=== PATIENT | female | born 1975 | race Caucasian/White ===

== ENCOUNTER 2016-07-10 10:55 | Emergency (ER) | payer OTHER ==
[2016-07-10 12:51] LABS: Basophils % (A) 0 %; CHCM 32.6; Eosinophils % (A) 1 %; HCT 43.9 % (34.0-46.0); HDW 2.13; HGB 14.2 gm/dL (11.4-16.0); Luc # (Auto) 0.13; Luc % (Auto) 2; Lymphocytes # (A) 1.5 k/uL (1.0-4.8); Lymphocytes % (A) 25 %; MCH 30.9 pg (25.0-35.0); MCHC 32.4 g/dL (31.0-37.0); MCV 95.4 fL (80.0-100.0); Mean Platelet Volume 6.7; Monocytes # (A) 0.4 k/uL (0-1.0); Monocytes % (A) 7 %; Neutrophils # (A) 3.8 k/uL (1.3-7.7); Neutrophils % (A) 65 %; RDW 13.4 % (11.5-15.5); WBC 5.9 k/uL (3.8-10.6)
[2016-07-10 13:06] LABS: ALT 27 U/L (9-52); AST 21 U/L (14-36); Alkaline Phosphatase 60 U/L (38-126); Amylase 81 U/L (30-110); Anion Gap 12 mmol/L; Blood Urea Nitrogen 10 mg/dL (7-17); Calcium 9.6 mg/dL (8.4-10.2); Carbon Dioxide 27 mmol/L (22-30); Chloride 105 mmol/L (98-107); Glucose 83 mg/dL (74-99); Non-African American GFR(MDRD) >60 (>60 ml/min/1.73 sqM); Potassium 4.3 mmol/L (3.5-5.1); Sodium 144 mmol/L (137-145); Total Bilirubin 0.6 mg/dL (0.2-1.3); Total Protein 7.5 g/dL (6.3-8.2)
[2016-07-10 13:24] LABS: Appearance,Urine Clear (Clear); Bilirubin,Urine Negative (Negative); Glucose,Urine (UA) Negative (Negative); Ketones,Urine Negative (Negative); Leukocyte Esterase,Urine Negative (Negative); Nitrite,Urine Negative (Negative); Protein,Urine Negative (Negative); Specific Gravity,Urine 1.008 (1.001-1.035); UA Billing (MACRO vs. MICRO) CHEM; Urobilinogen,Urine <2.0 mg/dL (<2.0)
[2016-07-10] MEDS ORDERED: ONDANSETRON 4 MG/2 ML VIAL IVP STA (14:09)
[2016-07-10] MEDS ORDERED: SODIUM CHLORIDE 0.9% 1,000 ML IV ONE (14:09)
[2016-07-10] MEDS ORDERED: HYDROmorphone 1 MG/ML 1 ML SYRINGE IVP STA ×2 (14:10→16:04)
--- NOTE | 2016-07-10 14:13 | ED ---
Abdominal Pain HPI - General Chief Complaint: Abdominal Pain Stated Complaint: ACUTE PANCREATITIS Time Seen by Provider: 07/10/16 13:42 Source: patient, RN notes reviewed Mode of arrival: ambulatory Limitations: no limitations - History of Present Illness Initial Comments: Patient is a 41-year-old female presents to the emergency room for evaluation of abdominal pain. Patient stated the pain began this morning. Patient states she has a history of chronic pancreatitis. Patient states she is a history of chronic pancreatitis from the medication she's been taking for her Crohn's disease. Patient states she woke up this morning with extreme left upper quadrant pain, nausea, vomiting and diarrhea. Patient states she takes Lortab and morphine for pain. Patient states it is not helping her symptoms. Patient denies chest pain, shortness of breath, headache, dizziness. Patient states that a low-grade fever over the past day. Patient denies any other symptoms or complaints this time. Patient denies blood in stools. Patient denies pain or burning during urination, trouble urinating or blood in urine. - Related Data Home Medications Medication Instructions Recorded Confirmed Alendronate Sodium [Fosamax] 70 mg PO MO 06/07/16 07/10/16 Morphine Sulfate ER [Ms Contin] 30 mg PO Q8H 06/07/16 07/10/16 SUMAtriptan SUCCINATE [Imitrex] 100 mg PO DAILY PRN 06/07/16 07/10/16 Adalimumab [Humira Pen] 40 mg SQ Q14D 07/10/16 07/10/16 Hydrocodone/Acetaminophen [[place] 1 tab PO Q6H PRN 07/10/16 07/10/16 10-325] Lipase/Protease/Amylase [Thor Ambrocio 2 cap PO AC-TID 07/10/16 07/10/16 24,000 Units Capsule] predniSONE 20 mg PO DAILY 07/10/16 07/10/16 Previous Rx's Medication Instructions Recorded Ondansetron [Zofran ODT] 8 mg PO Q8H PRN #15 tab.rapdis 06/09/16 Allergies Allergy/AdvReac Type Severity Reaction Status Date / Time metoclopramide [From Reglan] Allergy Intermediate Unknown Verified 07/10/16 14: 09 Review of Systems ROS Statement: Those systems with pertinent positive or pertinent negative responses have been documented in the HPI. ROS Other: All systems not noted in ROS Statement are negative. Past Medical History Past Medical History: Eye Disorder, GERD/Reflux, GI Bleed, Osteoarthritis (OA), Rheumatoid Arthritis (RA) Additional Past Medical History / Comment(s): pancreatitis, Crohn's disease pt stated her normsal is loose to water stools and( occ maybe even a bit of blood) more than 3 /day,ulcers, bone and skin necrosis, GAYLE CATARACTS, UTI'S, past renal failure d/t dehydration, migraine, osteoporosis, 2 spinal fx-wore a brace. History of Any Multi-Drug Resistant Organisms: None Reported Past Surgical History: Cholecystectomy Additional Past Surgical History / Comment(s): colonoscopies, egd's Past Anesthesia/Blood Transfusion Reactions: No Reported Reaction Additional Past Anesthesia/Blood Transfusion Reaction / Comment(s): has had 13 blood transfusion-no reaction Past Psychological History: No Psychological Hx Reported Additional Psychological History / Comment(s): pt recently moved here from [facility],lives with her parents.independant. Smoking Status: Never smoker Past Alcohol Use History: None Reported Past Drug Use History: None Reported - Past Family History Father Family Medical History: Myocardial Infarction ([place]) Additional Family Medical History / Comment(s): biological father had hx of drug abuse Mother Family Medical History: Hyperlipidemia General Exam - General Exam Comments Initial Comments: Sitting in exam room in no acute distress. Limitations: no limitations General appearance: alert, in no apparent distress Head exam: Present: atraumatic, normocephalic, normal inspection Eye exam: Present: normal appearance ENT exam: Present: normal exam Neck exam: Present: normal inspection Respiratory exam: Present: normal lung sounds bilaterally. Absent: respiratory distress Cardiovascular Exam: Present: regular rate, normal rhythm, normal heart sounds GI/Abdominal exam: Present: soft, tenderness (LUQ), normal bowel sounds. Absent : distended, guarding, rebound, rigid Extremities exam: Present: normal inspection Back exam: Present: normal inspection Neurological exam: Present: alert, oriented X3, CN II-XII intact, normal gait Psychiatric exam: Present: normal affect, normal mood Skin exam: Present: warm, dry, intact, normal color. Absent: rash Course Vital Signs 07/10/16 07/10/16 07/10/16 12:12 15:14 16:16 Temperature 98 F 97.8 F 98 F Pulse Rate 85 78 78 Respiratory 20 16 18 Rate Blood Pressure 116/67 115/70 120/55 O2 Sat by Pulse 99 98 98 Oximetry Medical Decision Making - Medical Decision Making Patient is a 41-year-old female with a past medical history of chronic pancreatitis presents to the emergency room for evaluation of abdominal pain. Patient's labs showed no acute findings. Patient states she is feeling better after pain medications given. Advised patient to follow-up with her primary care provider on Tuesday. Advised patient to return for worsening symptoms. Patient states she understands everything that was discussed with her. Case discussed with Dr. Banda. - Lab Data Result diagrams: 07/10/16 12:22 07/10/16 12:22 Lab Results 07/10/16 07/10/16 07/10/16 Range/Units 12:20 12: 12:22 WBC 5.9 (3.8-10.6) k/uL RBC 4.60 (3.80-5.40) m/uL Hgb 14.2 (11.4-16.0) gm/dL Hct 43.9 (34.0-46.0) % MCV 95.4 (80.0-100.0) fL MCH 30.9 (25.0-35.0) pg MCHC 32.4 (31.0-37.0) g/dL RDW 13.4 (11.5-15.5) % Plt Count 199 (150-450) k/uL Neutrophils % 65 % Lymphocytes % 25 % Monocytes % 7 % Eosinophils % 1 % Basophils % 0 % Neutrophils # 3.8 (1.3-7.7) k/uL Lymphocytes # 1.5 (1.0-4.8) k/uL Monocytes # 0.4 (0-1.0) k/uL Eosinophils # 0.0 (0-0.7) k/uL Basophils # 0.0 (0-0.2) k/uL Sodium 144 (137-145) mmol/L Potassium 4.3 (3.5-5.1) mmol/L Chloride 105 (98-107) mmol/L Carbon Dioxide 27 (22-30) mmol/L Anion Gap 12 mmol/L BUN 10 (7-17) mg/dL Creatinine 0.75 (0.52-1.04) mg/dL Est GFR (MDRD) Af Amer >60 (>60 ml/min/1.73 sqM) Est GFR (MDRD) Non-Af >60 (>60 ml/min/1.73 sqM) Glucose 83 (74-99) mg/dL Calcium 9.6 (8.4-10.2) mg/dL Total Bilirubin 0.6 (0.2-1.3) mg/dL AST 21 (14-36) U/L ALT 27 (9-52) U/L Alkaline Phosphatase 60 (38-126) U/L Total Protein 7.5 (6.3-8.2) g/dL Albumin 4.6 (3.5-5.0) g/dL Amylase 81 (30-110) U/L Lipase 274 (23-300) U/L Urine Color Yellow Urine Appearance Clear (Clear) Urine pH 6.0 (5.0-8.0) Ur Specific [place] 1.008 (1.001-1.035) Urine Protein Negative (Negative) Urine Glucose (UA) Negative (Negative) Urine Ketones Negative (Negative) Urine Blood Negative (Negative) Urine Nitrate Negative (Negative) Urine Bilirubin Negative (Negative) Urine Urobilinogen <2.0 (<2.0) mg/dL Ur Leukocyte Esterase Negative (Negative) - Radiology Data Radiology results: report reviewed, image reviewed Disposition Clinical Impression: Abdominal pain Disposition: HOME SELF-CARE Condition: Good Instructions: Abdominal Pain (ED) Additional Instructions: Continue taking at home medications as needed. Drink plenty of fluids. Please follow-up with primary care provider on Tuesday. If any new symptom arises, symptoms worsen or fever develops, return to ER as soon as possible. Referrals: Rebeca Estrella MD [Primary Care Provider] - 1-2 days Time of Disposition: 16:05
--- NOTE | 2016-07-10 14:57 | XR ---
EXAMINATION TYPE: XR KUB DATE OF EXAM: 07/10/2016 2:38 PM COMPARISON: 06/06/2016 INDICATION: Pain vomiting TECHNIQUE: Single view abdomen FINDINGS: There is a normal bowel gas pattern. Psoas margins are normal. No organomegaly is present. IMPRESSION: 1. Unremarkable Abdomen
[2016-07-10 15:17] VITALS: PULSE 78
[2016-07-10] MEDS ORDERED: KETOROLAC 30 MG/ML 1 ML VIAL IVP STA (15:22)
[2016-07-10 16:17] VITALS: BP 120/55; RESP 18; TEMP 98
== END 2016-07-10 16:17 | disposition home or self-care (01) ==
LOC: EC 10:55
DX: R10.12 Left upper quadrant pain (principal); K21.9 Gastro-esophageal reflux disease without esophagitis; K50.90 Crohn's disease, unspecified, without complications; M06.9 Rheumatoid arthritis, unspecified; R11.2 Nausea with vomiting, unspecified; R19.7 Diarrhea, unspecified; Z79.899 Other long term (current) drug therapy; Z88.8 Allergy status to other drugs, medicaments and biological substances; M19.90 Unspecified osteoarthritis, unspecified site; M81.0 Age-related osteoporosis without current pathological fracture; G43.909 Migraine, unspecified, not intractable, without status migrainosus; Z90.49 Acquired absence of other specified parts of digestive tract
CPT/HCPCS: 36415; 80053; 82150; 83690; 85025; 81003; 74000; 99285; 96374; 96375 ×2; 96376; J2405; J1885; J1170

== ENCOUNTER 2016-08-05 05:45 | Emergency (ER) | payer OTHER ==
[2016-08-05 05:52] VITALS: TEMP 97.9
[2016-08-05] MEDS ORDERED: SODIUM CHLORIDE 0.9% 1,000 ML IV STA ×2 (06:01)
[2016-08-05] MEDS ORDERED: HYDROmorphone 1 MG/ML 1 ML SYRINGE IVP STA ×2 (06:01→06:57)
[2016-08-05] MEDS ORDERED: ONDANSETRON 4 MG/2 ML VIAL IVP STA (06:01)
--- NOTE | 2016-08-05 06:03 | ED ---
Abdominal Pain HPI - General Source: patient, RN notes reviewed Mode of arrival: ambulatory Limitations: no limitations - History of Present Illness MD Complaint: abdominal pain <Matt Molina - Last Filed: 08/05/16 06:57> <Gurdeep Jackson - Last Filed: 08/05/16 08:04> - General Chief Complaint: Abdominal Pain Stated Complaint: abd pain Time Seen by Provider: 08/05/16 05:55 - History of Present Illness Initial Comments: This is a 41-year-old female history of chronic pancreatitis from her Crohn's disease medication states she's had 3 days of abdominal pain with nausea vomiting and diarrhea. She's had decreased oral intake she states the pain feels like a dull pressure 8/10 severity does radiate from her abdomen to her back. He also does get somewhat increased with deep breathing. She has no other complaints such as fevers chills or sweats. (Matt Molina) - Related Data Home Medications Medication Instructions Recorded Confirmed Alendronate Sodium [Fosamax] 70 mg PO MO 06/07/16 08/05/16 Morphine Sulfate ER [Ms Contin] 30 mg PO Q8H 06/07/16 08/05/16 SUMAtriptan SUCCINATE [Imitrex] 100 mg PO DAILY PRN 06/07/16 08/05/16 Adalimumab [Humira Pen] 40 mg SQ Q14D 07/10/16 08/05/16 Hydrocodone/Acetaminophen [[place] 1 tab PO Q6H PRN 07/10/16 08/05/16 10-325] Lipase/Protease/Amylase [Thor Ambrocio 2 cap PO AC-TID 07/10/16 08/05/16 24,000 Units Capsule] predniSONE 20 mg PO DAILY 07/10/16 08/05/16 Omeprazole 20 mg PO DAILY 08/05/16 08/05/16 Previous Rx's Medication Instructions Recorded Ondansetron [Zofran ODT] 8 mg PO Q8H PRN #15 tab.rapdis 06/09/16 Ondansetron Odt [Zofran Odt] 4 mg PO Q6H PRN #20 tab 08/05/16 Allergies Allergy/AdvReac Type Severity Reaction Status Date / Time metoclopramide [From Reglan] Allergy Intermediate Unknown Verified 08/05/16 05: 52 Review of Systems ROS Other: All systems not noted in ROS Statement are negative. <Matt Molina - Last Filed: 08/05/16 06:57> ROS Other: All systems not noted in ROS Statement are negative. <Gurdeep Jackson - Last Filed: 08/05/16 08:04> ROS Statement: Those systems with pertinent positive or pertinent negative responses have been documented in the HPI. Past Medical History Past Medical History: Eye Disorder, GERD/Reflux, GI Bleed, Osteoarthritis (OA), Rheumatoid Arthritis (RA) Additional Past Medical History / Comment(s): pancreatitis, Crohn's disease pt stated her normsal is loose to water stools and( occ maybe even a bit of blood) more than 3 /day,ulcers, bone and skin necrosis, GAYLE CATARACTS, UTI'S, past renal failure d/t dehydration, migraine, osteoporosis, 2 spinal fx-wore a brace. History of Any Multi-Drug Resistant Organisms: None Reported Past Surgical History: Cholecystectomy Additional Past Surgical History / Comment(s): colonoscopies, egd's Past Anesthesia/Blood Transfusion Reactions: No Reported Reaction Additional Past Anesthesia/Blood Transfusion Reaction / Comment(s): has had 13 blood transfusion-no reaction Past Psychological History: No Psychological Hx Reported Additional Psychological History / Comment(s): pt recently moved here from [facility],lives with her parents.independant. Smoking Status: Never smoker Past Alcohol Use History: None Reported Past Drug Use History: None Reported - Past Family History Father Family Medical History: Myocardial Infarction ([place]) Additional Family Medical History / Comment(s): biological father had hx of drug abuse Mother Family Medical History: Hyperlipidemia <Matt Molina - Last Filed: 08/05/16 06:57> General Exam Limitations: no limitations General appearance: alert, in distress Head exam: Present: atraumatic, normocephalic, normal inspection Eye exam: Present: normal appearance, PERRL, EOMI. Absent: scleral icterus, conjunctival injection, periorbital swelling ENT exam: Present: mucous membranes dry Neck exam: Present: normal inspection. Absent: tenderness, meningismus, lymphadenopathy Respiratory exam: Present: normal lung sounds bilaterally. Absent: respiratory distress, wheezes, rales, rhonchi, stridor Cardiovascular Exam: Present: regular rate, normal rhythm, normal heart sounds. Absent: systolic murmur, diastolic murmur, rubs, gallop, clicks GI/Abdominal exam: Present: soft, tenderness (Epigastric tenderness palpation), normal bowel sounds. Absent: distended, guarding, rebound, rigid Rectal exam: Present: deferred Extremities exam: Present: normal inspection, full ROM, normal capillary refill. Absent: tenderness, pedal edema, joint swelling, calf tenderness Back exam: Present: normal inspection Neurological exam: Present: alert, oriented X3, CN II-XII intact Psychiatric exam: Present: normal affect, normal mood Skin exam: Present: warm, dry, intact, normal color. Absent: rash <Matt Molina - Last Filed: 08/05/16 06:57> <Gurdeep Jackson - Last Filed: 08/05/16 08:04> - General Exam Comments Initial Comments: This is a well-developed well-nourished awake alert oriented 3 female (Matt Molina) Course <Matt Molina - Last Filed: 08/05/16 06:57> <Gurdeep Jackson - Last Filed: 08/05/16 08:04> Vital Signs 08/05/16 05:48 Temperature 97.9 F Pulse Rate 98 Respiratory 18 Rate Blood Pressure 114/69 O2 Sat by Pulse 100 Oximetry - Reevaluation(s) Reevaluation #1: 08/05/16 06:57 Patient is started she'll open better she still has pain however. She'll continue with IV fluids some more pain medication. Patient's care will be endorsed to Dr. Jackson who will make the final disposition. (Matt Molina) Medical Decision Making - Lab Data Result diagrams: 08/05/16 06:20 08/05/16 06:20 <Matt Molina - Last Filed: 08/05/16 06:57> - Lab Data Result diagrams: 08/05/16 06:20 08/05/16 06:20 <Gurdeep Jackson - Last Filed: 08/05/16 08:04> - Medical Decision Making I will begin the room to reevaluate the patient and gave her the option to stay but she stated she was feeling considerably better and really would rather go home and try to see if she would be okay at home. Patient did request some Zofran: With. (Gurdeep Jackson) - Lab Data Lab Results 08/05/16 08/05/16 08/05/16 Range/Units 06:20 06:20 06:20 WBC 5.6 (3.8-10.6) k/uL RBC 5.07 (3.80-5.40) m/uL Hgb 15.7 (11.4-16.0) gm/dL Hct 48.6 H (34.0-46.0) % MCV 95.8 (80.0-100.0) fL MCH 31.0 (25.0-35.0) pg MCHC 32.4 (31.0-37.0) g/dL RDW 13.5 (11.5-15.5) % Plt Count 254 (150-450) k/uL Neutrophils % 67 % Lymphocytes % 25 % Monocytes % 5 % Eosinophils % 1 % Basophils % 0 % Neutrophils # 3.8 (1.3-7.7) k/uL Lymphocytes # 1.4 (1.0-4.8) k/uL Monocytes # 0.3 (0-1.0) k/uL Eosinophils # 0.1 (0-0.7) k/uL Basophils # 0.0 (0-0.2) k/uL Sodium 146 H (137-145) mmol/L Potassium 4.6 (3.5-5.1) mmol/L Chloride 107 (98-107) mmol/L Carbon Dioxide 25 (22-30) mmol/L Anion Gap 14 mmol/L BUN 12 (7-17) mg/dL Creatinine 0.89 (0.52-1.04) mg/dL Est GFR (MDRD) Af Amer >60 (>60 ml/min/1.73 sqM) Est GFR (MDRD) Non-Af >60 (>60 ml/min/1.73 sqM) Glucose 96 (74-99) mg/dL Calcium 10.4 H (8.4-10.2) mg/dL Total Bilirubin 1.2 (0.2-1.3) mg/dL AST 23 (14-36) U/L ALT 29 (9-52) U/L Alkaline Phosphatase 73 (38-126) U/L Total Creatine Kinase 56 (30-135) U/L CK-MB (CK-2) 0.6 (0.0-2.4) ng/mL CK-MB (CK-2) Rel Index 1.1 Troponin I <0.012 (0.000-0.034) ng/mL Total Protein 8.4 H (6.3-8.2) g/dL Albumin 4.9 (3.5-5.0) g/dL Amylase 121 H (30-110) U/L Lipase 568 H (23-300) U/L Urine Color Urine Appearance (Clear) Urine pH (5.0-8.0) Ur Specific [place] (1.001-1.035) Urine Protein (Negative) Urine Glucose (UA) (Negative) Urine Ketones (Negative) Urine Blood (Negative) Urine Nitrate (Negative) Urine Bilirubin (Negative) Urine Urobilinogen (<2.0) mg/dL Ur Leukocyte Esterase (Negative) Urine RBC (0-5) /hpf Urine WBC (0-5) /hpf Ur Squamous Epith Cells (0-4) /hpf Urine Bacteria (None) /hpf Hyaline Casts (0-2) /lpf Urine Mucus (None) /hpf 08/05/16 Range/Units 06:20 WBC (3.8-10.6) k/uL RBC (3.80-5.40) m/uL Hgb (11.4-16.0) gm/dL Hct (34.0-46.0) % MCV (80.0-100.0) fL MCH (25.0-35.0) pg MCHC (31.0-37.0) g/dL RDW (11.5-15.5) % Plt Count (150-450) k/uL Neutrophils % % Lymphocytes % % Monocytes % % Eosinophils % % Basophils % % Neutrophils # (1.3-7.7) k/uL Lymphocytes # (1.0-4.8) k/uL Monocytes # (0-1.0) k/uL Eosinophils # (0-0.7) k/uL Basophils # (0-0.2) k/uL Sodium (137-145) mmol/L Potassium (3.5-5.1) mmol/L Chloride (98-107) mmol/L Carbon Dioxide (22-30) mmol/L Anion Gap mmol/L BUN (7-17) mg/dL Creatinine (0.52-1.04) mg/dL Est GFR (MDRD) Af Amer (>60 ml/min/1.73 sqM) Est GFR (MDRD) Non-Af (>60 ml/min/1.73 sqM) Glucose (74-99) mg/dL Calcium (8.4-10.2) mg/dL Total Bilirubin (0.2-1.3) mg/dL AST (14-36) U/L ALT (9-52) U/L Alkaline Phosphatase (38-126) U/L Total Creatine Kinase (30-135) U/L CK-MB (CK-2) (0.0-2.4) ng/mL CK-MB (CK-2) Rel Index Troponin I (0.000-0.034) ng/mL Total Protein (6.3-8.2) g/dL Albumin (3.5-5.0) g/dL Amylase (30-110) U/L Lipase (23-300) U/L Urine Color Yellow Urine Appearance Cloudy H (Clear) Urine pH 6.0 (5.0-8.0) Ur Specific [place] 1.018 (1.001-1.035) Urine Protein Trace H (Negative) Urine Glucose (UA) Negative (Negative) Urine Ketones Negative (Negative) Urine Blood Negative (Negative) Urine Nitrate Negative (Negative) Urine Bilirubin Negative (Negative) Urine Urobilinogen <2.0 (<2.0) mg/dL Ur Leukocyte Esterase Trace H (Negative) Urine RBC 3 (0-5) /hpf Urine WBC 2 (0-5) /hpf Ur Squamous Epith Cells 10 H (0-4) /hpf Urine Bacteria Occasional H (None) /hpf Hyaline Casts 2 (0-2) /lpf Urine Mucus Few H (None) /hpf Disposition <Matt Molina - Last Filed: 08/05/16 06:57> Time of Disposition: 08:02 <Gurdeep Jackson - Last Filed: 08/05/16 08:04> Clinical Impression: Pancreatitis Disposition: HOME SELF-CARE Instructions: Pancreatitis (ED) Prescriptions: Ondansetron Odt [Zofran Odt] 4 mg PO Q6H PRN #20 tab PRN Reason: Nausea Referrals: Derek Dobbins MD [Primary Care Provider] - 1-2 days
[2016-08-05 06:42] LABS: Appearance,Urine Cloudy (Clear); Bacteria,Urine Occasional /hpf; Basophils % (A) 0 %; Bilirubin,Urine Negative (Negative); CHCM 32.5; Eosinophils # (A) 0.1 k/uL (0-0.7); Eosinophils % (A) 1 %; Glucose,Urine (UA) Negative (Negative); HCT 48.6 % (34.0-46.0); HDW 2.16; HGB 15.7 gm/dL (11.4-16.0); Ketones,Urine Negative (Negative); Leukocyte Esterase,Urine Trace (Negative); Luc # (Auto) 0.11; Luc % (Auto) 2; Lymphocytes # (A) 1.4 k/uL (1.0-4.8); Lymphocytes % (A) 25 %; MCHC 32.4 g/dL (31.0-37.0); MCV 95.8 fL (80.0-100.0); Mean Platelet Volume 6.5; Monocytes # (A) 0.3 k/uL (0-1.0); Monocytes % (A) 5 %; Mucus,Urine Few /hpf; Neutrophils # (A) 3.8 k/uL (1.3-7.7); Neutrophils % (A) 67 %; Nitrite,Urine Negative (Negative); Particle Count 6366; Protein,Urine Trace (Negative); RBC 5.07 m/uL (3.80-5.40); RBC,Urine 3 /hpf (0-5); RDW 13.5 % (11.5-15.5); Specific Gravity,Urine 1.018 (1.001-1.035); Squamous Epithelial Cell,Urine 10 /hpf (0-4); UA Billing (MACRO vs. MICRO) MICRO; Urobilinogen,Urine <2.0 mg/dL (<2.0); WBC 5.6 k/uL (3.8-10.6); WBC (Perox) 5.47; WBC,Urine 2 /hpf (0-5)
[2016-08-05 06:52] LABS: ALT 29 U/L (9-52); AST 23 U/L (14-36); Alkaline Phosphatase 73 U/L (38-126); Amylase 121 U/L (30-110); Anion Gap 14 mmol/L; Blood Urea Nitrogen 12 mg/dL (7-17); Calcium 10.4 mg/dL (8.4-10.2); Carbon Dioxide 25 mmol/L (22-30); Chloride 107 mmol/L (98-107); Glucose 96 mg/dL (74-99); Non-African American GFR(MDRD) >60 (>60 ml/min/1.73 sqM); Potassium 4.6 mmol/L (3.5-5.1); Sodium 146 mmol/L (137-145); Total Bilirubin 1.2 mg/dL (0.2-1.3); Total Protein 8.4 g/dL (6.3-8.2)
[2016-08-05 06:58] LABS: Creatine Kinase 56 U/L (30-135)
--- NOTE | 2016-08-05 07:03 | XR ---
EXAMINATION TYPE: XR KUB DATE OF EXAM: 08/05/2016 6:49 AM CLINICAL HISTORY: Abdominal pain TECHNIQUE: Single supine KUB image of the abdomen is obtained. COMPARISON: 07/10/2016 FINDINGS: Surgical clips are noted in the right upper abdomen with cholecystectomy changes. Mild gaseous distention of bowel loops is noted in the abdomen. There are few air-fluid levels in the abdomen and pelvis. There is possibility of mild enteritis changes with ileus. No significant bowel obstruction is noted. There is no visceromegaly, pneumoperitoneum, or abnormal calcification appreci ated. The lung bases are clear and the osseous structures are intact. IMPRESSION: Possible mild ileus or enteritis changes in the abdomen and pelvis. Overall nonobstructive bowel gas pattern.
[2016-08-05 07:11] LABS: Creatine Kinase MB 0.6 ng/mL (0.0-2.4); Troponin I <0.012 ng/mL (0.000-0.034)
[2016-08-05 08:25] VITALS: BP 110/58; PULSE 66; RESP 17
== END 2016-08-05 08:25 | disposition home or self-care (01) ==
LOC: EC 05:45
DX: K85.90 Acute pancreatitis without necrosis or infection, unspecified (principal); K21.9 Gastro-esophageal reflux disease without esophagitis; K50.90 Crohn's disease, unspecified, without complications; M06.9 Rheumatoid arthritis, unspecified; M81.0 Age-related osteoporosis without current pathological fracture; Z79.899 Other long term (current) drug therapy; Z79.52 Long term (current) use of systemic steroids; Z88.8 Allergy status to other drugs, medicaments and biological substances; Z90.49 Acquired absence of other specified parts of digestive tract
CPT/HCPCS: 99284; 96374; 96375; 96376; 96361 ×2; 36415; 80053; 82150; 82550; 82553; 83690; 84484; 85025; 81001; 74000; J2405; J1170

== ENCOUNTER 2016-08-10 21:16 | Observation (INO) | payer OTHER ==
[2016-08-10] MEDS ORDERED: HYDROmorphone 1 MG/ML 1 ML SYRINGE IVP STA (21:46)
[2016-08-10] MEDS ORDERED: SODIUM CHLORIDE 0.9% 500 ML IV STA (21:46)
--- NOTE | 2016-08-10 21:50 | ED ---
General Adult HPI - General Chief complaint: Abdominal Pain Stated complaint: Abd/Back Pain, KALANI Time Seen by Provider: 08/10/16 21:35 Source: patient, RN notes reviewed Mode of arrival: ambulatory Limitations: no limitations - History of Present Illness Initial comments: This is a 41-year-old female who presents emergency department with past medical history significant for pancreatitis. Patient states she was in the emergency department about 5 days ago for pancreatitis but she wanted to go home and see if she could wait it out at home. Patient states the pain got too much for her to handle denies that she came back to the emergency department is looking to be admitted. Patient states she is vomiting and is nauseous. Patient states she took a Zofran helmet seems to be helping some of the nausea. Patient states the pain is been uncontrolled however she has taken some morphine and Lortab it didn't help. Patient denies any diarrhea per patient denies any recent fever or chills. Patient denies any chest pain. Patient states when she is vomiting she is having some shortness of breath but when she has not vomiting she has no shortness of breath. Patient denies any lightheadedness dizziness or near-syncopal episode. - Related Data Home Medications Medication Instructions Recorded Confirmed Alendronate Sodium [Fosamax] 70 mg PO MO 06/07/16 08/10/16 Morphine Sulfate ER [Ms Contin] 30 mg PO Q8H 06/07/16 08/10/16 SUMAtriptan SUCCINATE [Imitrex] 100 mg PO DAILY PRN 06/07/16 08/10/16 Adalimumab [Humira Pen] 40 mg SQ Q14D 07/10/16 08/10/16 Hydrocodone/Acetaminophen [[place] 1 tab PO Q6H PRN 07/10/16 08/10/16 10-325] Lipase/Protease/Amylase [Thor Ambrocio 3 cap PO AC-TID 07/10/16 08/10/16 24,000 Units Capsule] predniSONE 20 mg PO DAILY 07/10/16 08/10/16 Omeprazole 20 mg PO BID 08/05/16 08/10/16 Previous Rx's Medication Instructions Recorded Ondansetron Odt [Zofran Odt] 4 mg PO Q6H PRN #20 tab 08/05/16 Allergies Allergy/AdvReac Type Severity Reaction Status Date / Time metoclopramide [From Reglan] Allergy Intermediate Unknown Verified 08/10/16 21: 49 Review of Systems ROS Statement: Those systems with pertinent positive or pertinent negative responses have been documented in the HPI. ROS Other: All systems not noted in ROS Statement are negative. Past Medical History Past Medical History: Eye Disorder, GERD/Reflux, GI Bleed, Osteoarthritis (OA), Rheumatoid Arthritis ([place]) Additional Past Medical History / Comment(s): pancreatitis, Crohn's disease pt stated her normsal is loose to water stools and( occ maybe even a bit of blood) more than 3 /day,ulcers, bone and skin necrosis, GAYLE CATARACTS, UTI'S, past renal failure d/t dehydration, migraine, osteoporosis, 2 spinal fx-wore a brace. History of Any Multi-Drug Resistant Organisms: None Reported Past Surgical History: Cholecystectomy Additional Past Surgical History / Comment(s): colonoscopies, egd's Past Anesthesia/Blood Transfusion Reactions: No Reported Reaction Additional Past Anesthesia/Blood Transfusion Reaction / Comment(s): has had 13 blood transfusion-no reaction Past Psychological History: No Psychological Hx Reported Additional Psychological History / Comment(s): pt recently moved here from [facility],lives with her parents.independant. Smoking Status: Never smoker Past Alcohol Use History: None Reported Past Drug Use History: None Reported - Past Family History Father Family Medical History: Myocardial Infarction ([place]) Additional Family Medical History / Comment(s): biological father had hx of drug abuse Mother Family Medical History: Hyperlipidemia General Exam - General Exam Comments Initial Comments: GENERAL: Patient is well-developed and well-nourished. Patient is nontoxic and well- hydrated and is in moderate distress. ENT: Neck is soft and supple. No significant lymphadenopathy is noted. Oropharynx is clear. Moist mucous membranes. Neck has full range of motion without eliciting any pain. EYES: The sclera were anicteric and conjunctiva were pink and moist. Extraocular movements were intact and pupils were equal round and reactive to light. Eyelids were unremarkable. PULMONARY: Unlabored respirations. Good breath sounds bilaterally. No audible rales rhonchi or wheezing was noted. CARDIOVASCULAR: There is a regular rate and rhythm without any murmurs gallops or rubs. ABDOMEN: Epigastric abdominal pain. No palpable organomegaly was noted. There is no palpable pulsatile mass. SKIN: Skin is clear with no lesions or rashes and otherwise unremarkable. NEUROLOGIC: Patient is alert and oriented x3. Cranial nerves II through XII are grossly intact. Motor and sensory are also intact. Normal speech, volume and content. Symmetrical smile. MUSCULOSKELETAL: Normal extremities with adequate strength and full range of motion. LYMPHATICS: No significant lymphadenopathy is noted PSYCHIATRIC: Normal psychiatric evaluation. Normal interpersonal interactions appears functionally intact in deals appropriately with others. Limitations: no limitations Course Vital Signs 08/10/16 08/10/16 21:34 22:04 Temperature 98.1 F Pulse Rate 108 H 76 Respiratory 18 14 Rate Blood Pressure 108/83 118/62 O2 Sat by Pulse 98 97 Oximetry Medical Decision Making - Lab Data Result diagrams: 08/10/16 21:58 Lab Results 08/10/16 Range/Units 21:58 WBC 8.0 (3.8-10.6) k/uL RBC 4.73 (3.80-5.40) m/uL Hgb 15.0 (11.4-16.0) gm/dL Hct 46.1 H (34.0-46.0) % MCV 97.4 (80.0-100.0) fL MCH 31.7 (25.0-35.0) pg MCHC 32.6 (31.0-37.0) g/dL RDW 13.7 (11.5-15.5) % Plt Count 220 (150-450) k/uL Neutrophils % 61 % Lymphocytes % 30 % Monocytes % 4 % Eosinophils % 1 % Basophils % 2 % Neutrophils # 4.9 (1.3-7.7) k/uL Lymphocytes # 2.4 (1.0-4.8) k/uL Monocytes # 0.3 (0-1.0) k/uL Eosinophils # 0.1 (0-0.7) k/uL Basophils # 0.1 (0-0.2) k/uL Disposition Clinical Impression: Chronic pancreatitis Disposition: ADMITTED IP TO THIS [facility] Time of Disposition: 22:49
[2016-08-10 22:12] LABS: Basophils # (A) 0.1 k/uL (0-0.2); Basophils % (A) 2 %; CH 31.5; CHCM 32.5; Eosinophils # (A) 0.1 k/uL (0-0.7); Eosinophils % (A) 1 %; HCT 46.1 % (34.0-46.0); HDW 2.22; Luc # (Auto) 0.14; Luc % (Auto) 2; Lymphocytes # (A) 2.4 k/uL (1.0-4.8); Lymphocytes % (A) 30 %; MCH 31.7 pg (25.0-35.0); MCHC 32.6 g/dL (31.0-37.0); MCV 97.4 fL (80.0-100.0); Mean Platelet Volume 7.3; Monocytes # (A) 0.3 k/uL (0-1.0); Monocytes % (A) 4 %; Neutrophils # (A) 4.9 k/uL (1.3-7.7); Neutrophils % (A) 61 %; RBC 4.73 m/uL (3.80-5.40); RDW 13.7 % (11.5-15.5); WBC (Perox) 7.91
[2016-08-10 22:56] LABS: ALT 21 U/L (9-52); AST 24 U/L (14-36); Alkaline Phosphatase 75 U/L (38-126); Amylase 118 U/L (30-110); Anion Gap 13 mmol/L; Blood Urea Nitrogen 10 mg/dL (7-17); Calcium 10.1 mg/dL (8.4-10.2); Carbon Dioxide 24 mmol/L (22-30); Chloride 106 mmol/L (98-107); Glucose 100 mg/dL (74-99); Non-African American GFR(MDRD) >60 (>60 ml/min/1.73 sqM); Sodium 143 mmol/L (137-145); Total Bilirubin 0.6 mg/dL (0.2-1.3); Total Protein 8.1 g/dL (6.3-8.2)
[2016-08-10] MEDS: ONDANSETRON 4 MG/2 ML VIAL IVP PRN (23:32)
[2016-08-10] MEDS: HYDROmorphone 1 MG/ML 1 ML SYRINGE IVP PRN (23:33)
[2016-08-10] MEDS: SODIUM CHLORIDE 0.9% 1,000 ML IV ONE (23:36)
[2016-08-11 01:25] VITALS: BMI 17.2
[2016-08-11] MEDS: SODIUM CHLORIDE 0.9% 1,000 ML IV ONE (03:25)
[2016-08-11] MEDS: HYDROmorphone 1 MG/ML 1 ML SYRINGE IVP PRN ×5 (03:26→19:52)
[2016-08-11] MEDS: ONDANSETRON 4 MG/2 ML VIAL IVP PRN (11:31)
[2016-08-11] MEDS: predniSONE 20 MG TAB PO SCH (16:15)
[2016-08-11] MEDS: PANTOPRAZOLE 40 MG TABLET PO SCH (16:15)
[2016-08-11] MEDS: ENOXAPARIN 40 MG/0.4 ML SYRINGE SQ SCH (16:15)
[2016-08-11] MEDS: MORPHINE SULFATE ER 30 MG TABLET PO SCH ×2 (16:15→23:59)
[2016-08-11] MEDS: LIPASE 5,000/PROTEASE 17,000/AMYLASE 27,0000 PO SCH (17:54)
--- NOTE | 2016-08-11 19:46 | HP ---
DATE OF ADMISSION: 08/10/2016 PRESENTING COMPLAINT: Abdominal pain. HISTORY OF PRESENTING COMPLAINT: This is a very pleasant 41-year-old patient who did follow up with Dr. Estrella, but now wishes to follow with Dr. Dobbins and has an appointment to see him. Patient diagnosed with Crohn's a while ago and has tried different medications, ( ) and Humira, also diagnosed to have rheumatoid arthritis. Patient has also chronic pancreatitis, seems to be drug-induced pain gets pain on and off. Patient's baseline is about 10 bowel movements, occasional blood in there. ( ) has lost about 15 pounds, not eating much, presents again with abdominal pain going on for 2 or 3 days. Patient's amylase, lipase have gone up, admitted for the same. Denies any fevers. REVIEW OF SYSTEMS: CONSTITUTIONAL: Tired. Weight loss. HEENT: None. RESPIRATORY: None. CARDIOVASCULAR: None. GASTROINTESTINAL: As above. GENITOURINARY: None. MUSCULOSKELETAL: Some aching in the joints. DERMATOLOGIC: None. HEMATOLOGIC: None. LYMPHATIC: None. PSYCHIATRY: None. NEUROLOGICAL: None. Past medical history of Crohn disease, rheumatoid arthritis, and chronic pancreatitis. PAST SURGICAL HISTORY: Cholecystectomy. SOCIAL HISTORY: Patient just moved from [place], living with her parents. No smoking. Not employed. FAMILY HISTORY: Myocardial infarction. HOME MEDICATIONS: 1. Prednisone 5 mg a day. 2. Imitrex 100 mg p.o. daily p.r.n. 3. Zofran 4 mg every 6 hours p.r.n. 4. Omeprazole 20 mg p.o. b.i.d. 5. MS Contin 30 mg p.o. q.8. 6. [place] 24,000, 3 capsules p.o. t.i.d. 7. [place] 1 tablet every 6 hours p.r.n. 8. ( ). 9. Fosamax 70 mg p.o. on Mondays. 10. Humira 40 mg subcu every 14 days. ALLERGY TO REGLAN. On examination, temperature 98.1, pulse 108, respiration 18, blood pressure 108/83, pulse ox 98% on room air. GENERAL APPEARANCE: Thin build, BMI of 13.8. Lying in bed, tired-appearing. EYES: Pupils equal. Conjunctivae pale. HEENT: Oral cavity normal. NECK: JVD not raised. No mass palpable. RESPIRATORY: Effort normal. Lungs are clear. CARDIOVASCULAR: First and second sounds normal. No edema. ABDOMEN: Scaphoid. Tenderness in the epigastric area. Liver and spleen not palpable. LYMPHATIC: No lymph nodes palpable in neck or axillae. PSYCHIATRY: Alert and oriented x3. Mood and affect is slightly anxious-appearing. NEUROLOGICAL: Pupils equal. Cranial nerves grossly intact. Power and sensation grossly intact. INVESTIGATIONS: White count 8, hemoglobin 15.0. Potassium 4. BUN and creatinine are normal. Amylase 108, lipase 410. ASSESSMENT: 1. Acute on chronic pancreatitis. 2. Chronic Crohn disease. 3. Chronic rheumatoid arthritis. PLAN: Patient is put on pain medications. Will put D10 IV fluids. Home medications renewed. Will put the patient on clear liquids and GI was consulted. Care was discussed with the patient, which will be symptomatic treatment. Stool will be sent off for C. diff.
[2016-08-12] MEDS: DEXTROSE 5%-0.9% NACL 1,000 ML IV SCH ×4 (02:35→21:18)
[2016-08-12] MEDS: HYDROmorphone 1 MG/ML 1 ML SYRINGE IVP PRN ×4 (04:14→20:01)
[2016-08-12] MEDS: PANTOPRAZOLE 40 MG TABLET PO SCH ×2 (07:05→20:03)
[2016-08-12] MEDS: LIPASE 5,000/PROTEASE 17,000/AMYLASE 27,0000 PO SCH ×4 (07:06→18:06)
[2016-08-12] MEDS: MORPHINE SULFATE ER 30 MG TABLET PO SCH ×2 (08:34→17:51)
[2016-08-12] MEDS: ENOXAPARIN 40 MG/0.4 ML SYRINGE SQ SCH (10:13)
[2016-08-12] MEDS: predniSONE 20 MG TAB PO SCH (10:14)
--- NOTE | 2016-08-12 10:37 | P.CONS ---
History of Present Illness - Reason for Consult Consult date: 08/12/16 pancreatitis Requesting physician: Fabian Healy - History of Present Illness 41-year-old female recently moved to the [facility] with a past medical history of Crohn's ileitis diagnosed at 16 years of age, chronic relapsing pancreatitis secondary to Crohn's medications, GERD, rheumatoid arthritis, osteoarthritis, cholecystectomy, and migraines. Presents with generalized feelings of malaise weakness with upper midepigastric left upper quadrant abdominal discomfort. Lipase 400. Amylase 118. Liver enzymes normal. Consultation requested for pancreatitis. First episode of pancreatitis was in . Last hospitalization for pancreatitis like symptoms was 2 months ago. Patient has lived in the [facility] with extensive workup for pancreatitis and Crohn's. Last colonoscopy was 3 years ago. She is maintained on Humira and low-dose steroids. She states "I had 100s of polyps" on last colonoscopy exam. No history of personal familial colon carcinoma, FAP; her maternal grandmother had Crohn's. She has chronic diarrhea and currently denies hematemesis, hematochezia, or melena. Afebrile. No history of alcoholism or changes in medications. She takes pancreatic enzyme supplements 3 times daily as needed. Weight has been stable around 100 pound range. She has been afebrile. Review of Systems Constitutional: Denies fever, chills, sweats, weight gain, or loss. HEENT: Negative for migraines, eye disorder, denies hearing loss, denies earaches, drainage, tinnitus, oral mucosal lesions, dysphagia, or odynophagia. CARDIAC: Negative for chest pain, arrhythmias, or palpitation. RESPIRATORY: Negative for shortness of breath, hemoptysis, cough, or sputum production. GI: See HPI for pertinent findings. : Negative for hematuria, urgency, frequency, polyuria, or dysuria. GYNc: Denies possibility of . Negative vaginal discharge. MUSCULOSKELETAL: Osteoarthritis. Rheumatoid arthritis. NEUROLOGIC: Negative for stroke or TIA. ENDOCRINE: Negative for thyroid problems. SKIN: Negative for rash or itching. PSYCHIATRIC: Negative history for depression and anxiety All systems: negative (See HPI) Past Medical History Past Medical History: Eye Disorder, GERD/Reflux, GI Bleed, Osteoarthritis (OA), Rheumatoid Arthritis (RA) Additional Past Medical History / Comment(s): pancreatitis, Crohn's disease pt stated her normal is loose to water stools and( occ maybe even a bit of blood) more than 3 /day,ulcers, bone and skin necrosis, GAYLE CATARACTS, UTI'S, past renal failure d/t dehydration, migraine, osteoporosis, 2 spinal fx-wore a brace. History of Any Multi-Drug Resistant Organisms: None Reported Past Surgical History: Cholecystectomy Additional Past Surgical History / Comment(s): colonoscopies, egd's Past Anesthesia/Blood Transfusion Reactions: No Reported Reaction Additional Past Anesthesia/Blood Transfusion Reaction / Comm: has had 13 blood transfusion-no reaction Past Psychological History: No Psychological Hx Reported Additional Psychological History / Comment(s): pt recently moved here from [facility],lives with her parents.independant. Smoking Status: Never smoker Past Alcohol Use History: None Reported Past Drug Use History: None Reported - Past Family History Father Family Medical History: Myocardial Infarction ([place]) Additional Family Medical History / Comment(s): biological father had hx of drug abuse Mother Family Medical History: Hyperlipidemia Medications and Allergies Home Medications Medication Instructions Recorded Confirmed Type Alendronate Sodium [Fosamax] 70 mg PO MO 06/07/16 08/11/16 History Morphine Sulfate ER [Ms Contin] 30 mg PO Q8H 06/07/16 08/11/16 History SUMAtriptan SUCCINATE [Imitrex] 100 mg PO DAILY PRN 06/07/16 08/11/16 History Adalimumab [Humira Pen] 40 mg SQ Q14D 07/10/16 08/11/16 History Hydrocodone/Acetaminophen [[place] 1 tab PO Q6H PRN 07/10/16 08/11/16 History 10-325] Lipase/Protease/Amylase [Thor [place] 3 cap PO AC-TID 07/10/16 08/11/16 History 24,000 Units Capsule] predniSONE 20 mg PO DAILY 07/10/16 08/11/16 History Omeprazole 20 mg PO BID 08/05/16 08/11/16 History Allergies Allergy/AdvReac Type Severity Reaction Status Date / Time metoclopramide [From Reglan] Allergy Intermediate Unknown Verified 08/10/16 21: 49 Physical Exam Vitals: Vital Signs Temp Pulse Resp BP Pulse Ox 08/12/16 07:00 98.6 F 61 16 89/54 100 08/12/16 00:00 97.3 F L 60 18 91/59 98 08/11/16 20:29 98.2 F 53 L 18 99/57 99 08/11/16 15:00 99.1 F 56 L 18 103/63 97 08/11/16 12:12 98.2 F 58 L 16 99/55 98 Intake and Output 08/11/16 08/12/16 08/12/16 22:59 06:59 14:59 Other: # Voids 1 2 General appearance: The patient is alert, oriented, in no acute distress. HET: Head is normocephalic and atraumatic. Pupils are equal and reactive. Oropharynx is clear without lesions. Neck: Supple without lymphadenopathy. Trachea midline. Heart: S1 S2. Regular rate and rhythm. Lungs: No crackles or wheezes are heard. Abdomen: Soft, mild tenderness midepigastric left upper quadrant, nondistended with bowel sounds. No peritoneal signs. No palpable organomegaly or masses. Extremities: Normal skin color and turgor. No cyanosis, rash, ulceration, clubbing, or edema. Radial and pedal pulses are 2/4 bilaterally. Neurological: No focal deficits. Strength and sensation are grossly intact. Results CBC & Chem 7: 08/10/16 21:58 08/10/16 21:58 Assessment and Plan (1) Chronic pancreatitis Narrative/Plan: Acute on chronic pancreatitis unclear etiology possibly secondary to underlying Crohn's disease. Status: Acute (2) Crohns disease Narrative/Plan: Report of Crohn's ileitis diagnosed at 16 years of age Status: Acute Plan: 1. Ultrasound abdomen in a.m. Advance to low-fat diet today. 2. Continue with pancreatic enzymes and observation. 3. Resume Humira on discharge. Follow up in GI office next week August [address] Nagy. Thank you for this kind referral and the opportunity to participate in the care of your patient. This consultation was discussed with Dr. Nagy. The impression and plan of care have been directed as dictated.
[2016-08-12] MEDS: ONDANSETRON 4 MG/2 ML VIAL IVP PRN (17:52)
--- NOTE | 2016-08-12 20:10 | PN ---
DATE OF SERVICE: 08/12/2016 PRESENTING COMPLAINT: Abdominal pain. INTERVAL HISTORY: This is a patient who presented with acute on chronic pancreatitis, has chronic ( Crohn's disease, has not had a bowel movement here. Patient for lunch actually did tolerate some chicken noodle soup and actually had half an egg sandwich and managed to keep it down. Review of systems done for constitutional, cardiovascular, GI, pulmonary; relevant findings as above. Still having some abdominal pain. On examination, temperature 97.9, pulse 53, respiration 20, blood pressure 95/52, pulse ox 100% on room air. GENERAL APPEARANCE: Sitting up, not in distress. EYES: Pupils equal. Conjunctivae normal. NECK: JVD not raised. Mass not palpable. RESPIRATORY: Effort normal. LUNGS: Slightly decreased breath sounds. CARDIOVASCULAR: First and second sounds normal. No edema. ABDOMEN: Tenderness in the epigastric area. No guarding or rigidity. PSYCHIATRY: Alert and oriented x3. Mood and affect normal. INVESTIGATIONS: No blood work from today. C. difficile negative. ASSESSMENT: 1. Acute and chronic pancreatitis with some clinical improvement. 2. Chronic Crohn's disease. 3. Chronic rheumatoid arthritis. PLAN: Check labs tomorrow morning, amylase and lipase. The patient already tolerating some soft diet. Await input from Dr. Nagy.
[2016-08-13] MEDS: MORPHINE SULFATE ER 30 MG TABLET PO SCH ×2 (01:08→08:48)
[2016-08-13] MEDS: HYDROmorphone 1 MG/ML 1 ML SYRINGE IVP PRN ×3 (01:57→10:47)
[2016-08-13] MEDS: ONDANSETRON 4 MG/2 ML VIAL IVP PRN (06:23)
[2016-08-13] MEDS: DEXTROSE 5%-0.9% NACL 1,000 ML IV SCH (06:44)
[2016-08-13] MEDS: PANTOPRAZOLE 40 MG TABLET PO SCH (06:44)
[2016-08-13 07:39] LABS: Amylase 77 U/L (30-110); Anion Gap 9 mmol/L; Blood Urea Nitrogen 13 mg/dL (7-17); Calcium 9.2 mg/dL (8.4-10.2); Carbon Dioxide 22 mmol/L (22-30); Chloride 114 mmol/L (98-107); Glucose 93 mg/dL (74-99); Non-African American GFR(MDRD) >60 (>60 ml/min/1.73 sqM); Sodium 145 mmol/L (137-145)
[2016-08-13] MEDS: LIPASE 5,000/PROTEASE 17,000/AMYLASE 27,0000 PO SCH (08:00)
[2016-08-13 08:32] VITALS: RESP 16
--- NOTE | 2016-08-13 08:36 | US ---
EXAMINATION TYPE: US abdomen limited DATE OF EXAM: 08/13/2016 8:03 AM COMPARISON: Prior abdomen ultrasound 07 June 2016, CT abdomen 08 June 2016 CLINICAL HISTORY: pancreatitis. EXAM MEASUREMENTS: Liver Length: 13.5 cm Gallbladder Wall: Surgically absent CBD: 0.3 cm Right Kidney: 11.4 x 3.5 x 4.9 cm Minimal free fluid adjacent to the liver. Pancreas: wnl Liver: wnl Gallbladder: Surgically absent Evidence for sonographic Henriquez's sign: no CBD: wnl Right Kidney: small cyst measuring 0.8 x 0.6 x 0.8cm IMPRESSION: Common bile duct diameter is somewhat less than on prior exam, patient is post cholecyste ctomy. Simple cyst lower pole right kidney. Small amount of free fluid.
[2016-08-13] MEDS: ENOXAPARIN 40 MG/0.4 ML SYRINGE SQ SCH (08:52)
[2016-08-13] MEDS: predniSONE 20 MG TAB PO SCH (08:52)
--- NOTE | 2016-08-13 10:05 | P.PN ---
Subjective Principal diagnosis: Pancreatitis 41-year-old female admitted with acute on chronic pancreatitis with underlying Crohn's and cholecystectomy. Still reports abdominal discomfort his mind. [place] reticulocyte enzymes normalized. Afebrile. Tolerating low-fat diet. Ultrasound abdomen negative for pancreatic pseudocyst. Objective - Vital Signs Vital signs: Vital Signs Temp 97.2 F L 08/13/16 08:02 Pulse 51 L 08/13/16 08:02 Resp 16 08/13/16 08:02 BP 101/60 08/13/16 08:02 Pulse Ox 100 08/13/16 08:02 Intake & Output 08/12/16 08/13/16 08/13/16 18:59 06:59 18:59 Intake Total 600 120 Balance 600 120 Weight 45.359 kg Intake: Oral 600 120 Other: # Voids 3 1 # Bowel Movements 2 - Exam General appearance: The patient is alert, oriented, in no acute distress. HET: Head is normocephalic and atraumatic. Pupils are equal and reactive. Oropharynx is clear without lesions. Neck: Supple without lymphadenopathy. Trachea midline. Heart: S1 S2. Regular rate and rhythm. Lungs: No crackles or wheezes are heard. Abdomen: Soft, mild midepigastric left upper quadrant tenderness, nondistended with bowel sounds. No peritoneal signs. No palpable organomegaly or masses. Extremities: Normal skin color and turgor. No cyanosis, rash, ulceration, clubbing, or edema. Radial and pedal pulses are 2/4 bilaterally. Neurological: No focal deficits. Strength and sensation are grossly intact. - Labs CBC & Chem 7: 08/10/16 21:58 08/13/16 06:57 Labs: Abnormal Lab Results - Last 24 Hours (Table) 08/13/16 Range/Units 06:57 Chloride 114 H (98-107) mmol/L Assessment and Plan (1) Chronic pancreatitis Narrative/Plan: Acute on chronic pancreatitis unclear etiology possibly secondary to underlying Crohn's disease. Status: Acute (2) Crohns disease Narrative/Plan: Report of Crohn's ileitis diagnosed at 16 years of age Status: Acute Plan: 1. Agreeable for discharge. 2. Return to GI office [address] Nagy. Continue with Humira as directed. Low-fat diet. Continue with pancreatic enzymes. Assessment and plan a care discussed with Dr. Bonilla
[2016-08-13 11:41] VITALS: BP 124/81; PULSE 76; TEMP 98.3
--- NOTE | 2016-08-13 21:13 | DS ---
DATE OF ADMISSION: 08/10/2016 DATE OF DISCHARGE: 08/13/2016 FINAL DIAGNOSIS(ES): 1. Acute on chronic pancreatitis present at admission. 2. Chronic Crohn's disease. 3. Chronic rheumatoid arthritis. HOSPITAL COURSE: This is a patient who just moved to the area. She is switching her family doctor from Dr. Estrella to Dr. Dobbins. The patient been diagnosed with Crohn's disease for a while and now has been on Humira, also has rheumatoid arthritis. Patient has chronic pancreatitis felt to be drug-induced. Patient is at baseline having about 10 bowel movements presented with abdominal pain and amylase and lipase elevated. At the time of discharge, the patient tolerating some diet. Diarrhea had actually settled down completely. Patient was told to space out her diet. Patient did have an abdominal ultrasound, nonspecific. Care was discussed with the patient. On examination epigastric tenderness. No guarding or rigidity. CONSULTATION: Dr. aJmari Bonilla from GI. DISCHARGE MEDICATIONS: 1. Fosamax 70 mg p.o. Tuesday. 2. MS Contin 30 mg p.o. q.8. 3. Imitrex 100 mg p.o. daily p.r.n. 4. Humira 40 mg subcutaneously q. 14 days. 5. [place] 10, 1 tablet q.6 p.r.n. 6. ( ) 24,000 3 capsules p.o. a.c. t.i.d. 7. Prednisone 20 mg daily. 8. Omeprazole 20 mg p.o. b.i.d. 9. Zofran 4 mg q.6 p.r.n. DIET: Soft, low fat. Follow with Dr. Nagy on 08/19/2016. Follow-up with Dr. Dobbins on 08/13/2016. Follow-up with Dr. Kinsey rheumatology in one week.
== END 2016-08-13 11:30 | disposition home or self-care (01) ==
LOC: EC 21:16 → 6PED 22:49
PROVIDERS: ADMIT Hospitalist; ATTEND Hospitalist
DX: K85.90 Acute pancreatitis without necrosis or infection, unspecified (principal); K86.1 Other chronic pancreatitis; K50.00 Crohn's disease of small intestine without complications; M06.9 Rheumatoid arthritis, unspecified; M19.90 Unspecified osteoarthritis, unspecified site; M81.0 Age-related osteoporosis without current pathological fracture; K21.9 Gastro-esophageal reflux disease without esophagitis; G43.909 Migraine, unspecified, not intractable, without status migrainosus; Z88.8 Allergy status to other drugs, medicaments and biological substances; Z79.899 Other long term (current) drug therapy; Z79.891 Long term (current) use of opiate analgesic; Z79.52 Long term (current) use of systemic steroids; Z90.49 Acquired absence of other specified parts of digestive tract
CPT/HCPCS: 96375 ×2; 96376 ×2; 96361 ×4; 99284 ×2; 36415; 80053; 80048; 82150 ×2; 83690 ×2; 85025; 87324; 76705; 96374; G0378 ×4; J2405 ×4; J1650 ×3; J1170 ×4; J7512 ×3; 96372

== ENCOUNTER 2016-08-14 09:59 | Emergency (ER) | payer OTHER ==
[2016-08-14] MEDS ORDERED: HYDROmorphone 1 MG/ML 1 ML SYRINGE IVP STA ×2 (10:22→11:52)
[2016-08-14] MEDS ORDERED: SODIUM CHLORIDE 0.9% 1,000 ML IV STA (10:22)
[2016-08-14] MEDS ORDERED: ONDANSETRON 4 MG/2 ML VIAL IVP STA (10:22)
--- NOTE | 2016-08-14 10:26 | ED ---
Abdominal Pain HPI - General Chief Complaint: Abdominal Pain Stated Complaint: abd pain Time Seen by Provider: 08/14/16 10:08 Source: patient Mode of arrival: wheelchair Limitations: no limitations - History of Present Illness Initial Comments: 41-year-old female with history of complex medical problems presents with abdominal pain. Patient has a 7 year history of recurrent pancreatitis. She is discharged yesterday at about 3 hours ago began having epigastric pain radiating through to the back. No fever no chills has nausea and no vomiting has chronic diarrhea. She has a history of rheumatoid arthritis and Crohn's disease always has some blood in the stool and loose stools. No blood throwing up. - Related Data Home Medications Medication Instructions Recorded Confirmed Alendronate Sodium [Fosamax] 70 mg PO MO 06/07/16 08/14/16 Morphine Sulfate ER [Ms Contin] 30 mg PO Q8H 06/07/16 08/14/16 SUMAtriptan SUCCINATE [Imitrex] 100 mg PO DAILY PRN 06/07/16 08/14/16 Adalimumab [Humira Pen] 40 mg SQ Q14D 07/10/16 08/14/16 Hydrocodone/Acetaminophen [[place] 1 tab PO Q6H PRN 07/10/16 08/14/16 10-325] Lipase/Protease/Amylase [Thor [place] 3 cap PO AC-TID 07/10/16 08/14/16 24,000 Units Capsule] predniSONE 20 mg PO DAILY 07/10/16 08/14/16 Omeprazole 20 mg PO BID 08/05/16 08/14/16 Previous Rx's Medication Instructions Recorded Ondansetron Odt [Zofran ODT] 4 mg PO Q6H PRN #20 tab 08/05/16 oxyCODONE-APAP 10-325MG [Percocet 1 tab PO Q4H PRN #20 tab 08/14/16 10-325 mg] Allergies Allergy/AdvReac Type Severity Reaction Status Date / Time metoclopramide [From Reglan] Allergy Intermediate Unknown Verified 08/14/16 12: 25 Review of Systems ROS Statement: Those systems with pertinent positive or pertinent negative responses have been documented in the HPI. ROS Other: All systems not noted in ROS Statement are negative. Constitutional: Denies: fever, chills Eyes: Denies: eye pain, eye discharge ENT: Denies: ear pain, throat pain Respiratory: Denies: cough Cardiovascular: Denies: chest pain Gastrointestinal: Reports: abdominal pain, nausea, diarrhea Genitourinary: Denies: urgency, dysuria, frequency Skin: Denies: rash Psychiatric: Denies: anxiety, depression Hematological/Lymphatic: Denies: easy bleeding, easy bruising Past Medical History Past Medical History: Eye Disorder, GERD/Reflux, GI Bleed, Osteoarthritis (OA), Rheumatoid Arthritis (RA) Additional Past Medical History / Comment(s): pancreatitis, Crohn's disease pt stated her normal is loose to water stools and( occ maybe even a bit of blood) more than 3 /day,ulcers, bone and skin necrosis, GAYLE CATARACTS, UTI'S, past renal failure d/t dehydration, migraine, osteoporosis, 2 spinal fx-wore a brace. History of Any Multi-Drug Resistant Organisms: None Reported Past Surgical History: Cholecystectomy Additional Past Surgical History / Comment(s): colonoscopies, egd's Past Anesthesia/Blood Transfusion Reactions: No Reported Reaction Additional Past Anesthesia/Blood Transfusion Reaction / Comment(s): has had 13 blood transfusion-no reaction Past Psychological History: No Psychological Hx Reported Additional Psychological History / Comment(s): pt recently moved here from [facility],lives with her parents.independant. Smoking Status: Never smoker Past Alcohol Use History: None Reported Past Drug Use History: None Reported - Past Family History Father Family Medical History: Myocardial Infarction ([place]) Additional Family Medical History / Comment(s): biological father had hx of drug abuse Mother Family Medical History: Hyperlipidemia General Exam Limitations: no limitations General appearance: alert, other (Uncomfortable holding her stomach.) Head exam: Present: atraumatic Eye exam: Present: normal appearance, PERRL, EOMI ENT exam: Present: normal oropharynx, mucous membranes moist Neck exam: Present: normal inspection Respiratory exam: Present: normal lung sounds bilaterally Cardiovascular Exam: Present: regular rate, normal heart sounds GI/Abdominal exam: Present: soft, tenderness (Epigastric no rebound or guarding) Neurological exam: Present: alert, CN II-XII intact Psychiatric exam: Present: normal affect, normal mood Skin exam: Present: warm, dry Course Vital Signs 08/14/16 08/14/16 08/14/16 10:03 12:05 12:40 Temperature 97.5 F L 98.3 F 98.3 F Pulse Rate 80 60 57 L Respiratory 20 15 15 Rate Blood Pressure 123/76 103/63 102/61 O2 Sat by Pulse 99 100 100 Oximetry Medical Decision Making - Medical Decision Making Patient is feeling much better with fluids and pain medication however she is out of her MS Contin and beginning now and her new doctor would not fill it and wants her pain management which she does not have an immediate appointment. Have calculated her equivalent and will give her enough Percocet for the next 4 days to bridge her until she can see the specialist. Spoke with Dr. Healy does not feel she needs to be admitted in reviewing her history and labs. - Lab Data Result diagrams: 08/14/16 10:57 08/14/16 10:57 Lab Results 08/14/16 08/14/16 08/14/16 Range/Units 10:41 10:57 10:57 WBC 8.8 (3.8-10.6) k/uL RBC 4.55 (3.80-5.40) m/uL Hgb 14.1 (11.4-16.0) gm/dL Hct 44.0 (34.0-46.0) % MCV 96.8 (80.0-100.0) fL MCH 31.1 (25.0-35.0) pg MCHC 32.1 (31.0-37.0) g/dL RDW 14.0 (11.5-15.5) % Plt Count 215 (150-450) k/uL Neutrophils % 75 % Lymphocytes % 18 % Monocytes % 5 % Eosinophils % 0 % Basophils % 0 % Neutrophils # 6.5 (1.3-7.7) k/uL Lymphocytes # 1.6 (1.0-4.8) k/uL Monocytes # 0.5 (0-1.0) k/uL Eosinophils # 0.0 (0-0.7) k/uL Basophils # 0.0 (0-0.2) k/uL Sodium 149 H (137-145) mmol/L Potassium 3.5 (3.5-5.1) mmol/L Chloride 111 H (98-107) mmol/L Carbon Dioxide 23 (22-30) mmol/L Anion Gap 15 mmol/L BUN 10 (7-17) mg/dL Creatinine 0.73 (0.52-1.04) mg/dL Est GFR (MDRD) Af Amer >60 (>60 ml/min/1.73 sqM) Est GFR (MDRD) Non-Af >60 (>60 ml/min/1.73 sqM) Glucose 73 L (74-99) mg/dL Calcium 10.1 (8.4-10.2) mg/dL Total Bilirubin 0.7 (0.2-1.3) mg/dL AST 21 (14-36) U/L ALT 24 (9-52) U/L Alkaline Phosphatase 66 (38-126) U/L Total Protein 7.9 (6.3-8.2) g/dL Albumin 4.7 (3.5-5.0) g/dL Amylase 76 (30-110) U/L Lipase 177 (23-300) U/L Urine Color Colorless Urine Appearance Clear (Clear) Urine pH 5.5 (5.0-8.0) Ur Specific [place] 1.001 (1.001-1.035) Urine Protein Negative (Negative) Urine Glucose (UA) Negative (Negative) Urine Ketones Negative (Negative) Urine Blood Negative (Negative) Urine Nitrate Negative (Negative) Urine Bilirubin Negative (Negative) Urine Urobilinogen <2.0 (<2.0) mg/dL Ur Leukocyte Esterase Negative (Negative) - EKG Data -: EKG Interpreted by 08/14/16 11:11 Ventricular rate 64 bpm, CA interval 116 ms, QRS duration 76 ms, QT interval, normal sinus rhythm normal ECG Disposition Clinical Impression: Chronic pancreatitis Disposition: HOME SELF-CARE Condition: Fair Prescriptions: oxyCODONE-APAP 10-325MG [Percocet 10-325 mg] 1 tab PO Q4H PRN #20 tab PRN Reason: Pain Time of Disposition: 13:24
[2016-08-14 11:15] LABS: Basophils % (A) 0 %; CHCM 32.2; Eosinophils % (A) 0 %; HDW 2.18; HGB 14.1 gm/dL (11.4-16.0); Luc # (Auto) 0.16; Luc % (Auto) 2; Lymphocytes # (A) 1.6 k/uL (1.0-4.8); Lymphocytes % (A) 18 %; MCH 31.1 pg (25.0-35.0); MCHC 32.1 g/dL (31.0-37.0); MCV 96.8 fL (80.0-100.0); Mean Platelet Volume 6.7; Monocytes # (A) 0.5 k/uL (0-1.0); Monocytes % (A) 5 %; Neutrophils # (A) 6.5 k/uL (1.3-7.7); Neutrophils % (A) 75 %; RBC 4.55 m/uL (3.80-5.40); WBC 8.8 k/uL (3.8-10.6); WBC (Perox) 8.77
[2016-08-14 11:15] LABS: Appearance,Urine Clear (Clear); Bilirubin,Urine Negative (Negative); Glucose,Urine (UA) Negative (Negative); Ketones,Urine Negative (Negative); Leukocyte Esterase,Urine Negative (Negative); Nitrite,Urine Negative (Negative); PH, Urine 5.5 (5.0-8.0); Protein,Urine Negative (Negative); Specific Gravity,Urine 1.001 (1.001-1.035); UA Billing (MACRO vs. MICRO) CHEM; Urobilinogen,Urine <2.0 mg/dL (<2.0)
[2016-08-14 11:26] LABS: ALT 24 U/L (9-52); AST 21 U/L (14-36); Alkaline Phosphatase 66 U/L (38-126); Amylase 76 U/L (30-110); Anion Gap 15 mmol/L; Blood Urea Nitrogen 10 mg/dL (7-17); Calcium 10.1 mg/dL (8.4-10.2); Carbon Dioxide 23 mmol/L (22-30); Chloride 111 mmol/L (98-107); Glucose 73 mg/dL (74-99); Non-African American GFR(MDRD) >60 (>60 ml/min/1.73 sqM); Potassium 3.5 mmol/L (3.5-5.1); Sodium 149 mmol/L (137-145); Total Bilirubin 0.7 mg/dL (0.2-1.3); Total Protein 7.9 g/dL (6.3-8.2)
--- NOTE | 2016-08-14 11:59 | XR ---
EXAMINATION TYPE: XR chest 2V DATE OF EXAM: 08/14/2016 11:35 AM COMPARISON: None HISTORY: 41 year-old female with abdominal pain TECHNIQUE: PA and lateral views FINDINGS: Heart is normal size. Aorta and pulmonary vasculature within normal limits. Some strandy atelectasis in the lower lungs. No consolidation or pleural effusion. IMPRESSION: No acute cardiopulmonary process.
--- NOTE | 2016-08-14 12:01 | XR ---
EXAMINATION TYPE: XR abdomen 2V DATE OF EXAM: 08/14/2016 11:35 AM CLINICAL DATA: 41-year-old female with abdominal pain, [facility] COMPARISON: 08/05/2016 FINDINGS: Lung bases are clear. No evidence for free intraperitoneal air. No dilated small bowel or air-fluid levels. Scattered air and stool seen throughout the colon extendi ng distally into the rectum. No significant stone burden seen. Cholecystectomy clips and phleboliths in the pelvis. IMPRESSION: Nonspecific, nonobstructive bowel gas pattern. No significant stool burden or free air.
[2016-08-14 12:07] VITALS: TEMP 98.3
[2016-08-14] MEDS ORDERED: oxyCODONE-APAP 10-325MG 1 EACH TAB PO STA (13:25)
--- NOTE | 2016-08-14 13:52 | ED ---
Medical Decision Making - Lab Data Result diagrams: 08/14/16 10:57 08/14/16 10:57 Lab Results 08/14/16 08/14/16 08/14/16 Range/Units 10:41 10:57 10:57 WBC 8.8 (3.8-10.6) k/uL RBC 4.55 (3.80-5.40) m/uL Hgb 14.1 (11.4-16.0) gm/dL Hct 44.0 (34.0-46.0) % MCV 96.8 (80.0-100.0) fL MCH 31.1 (25.0-35.0) pg MCHC 32.1 (31.0-37.0) g/dL RDW 14.0 (11.5-15.5) % Plt Count 215 (150-450) k/uL Neutrophils % 75 % Lymphocytes % 18 % Monocytes % 5 % Eosinophils % 0 % Basophils % 0 % Neutrophils # 6.5 (1.3-7.7) k/uL Lymphocytes # 1.6 (1.0-4.8) k/uL Monocytes # 0.5 (0-1.0) k/uL Eosinophils # 0.0 (0-0.7) k/uL Basophils # 0.0 (0-0.2) k/uL Sodium 149 H (137-145) mmol/L Potassium 3.5 (3.5-5.1) mmol/L Chloride 111 H (98-107) mmol/L Carbon Dioxide 23 (22-30) mmol/L Anion Gap 15 mmol/L BUN 10 (7-17) mg/dL Creatinine 0.73 (0.52-1.04) mg/dL Est GFR (MDRD) Af Amer >60 (>60 ml/min/1.73 sqM) Est GFR (MDRD) Non-Af >60 (>60 ml/min/1.73 sqM) Glucose 73 L (74-99) mg/dL Calcium 10.1 (8.4-10.2) mg/dL Total Bilirubin 0.7 (0.2-1.3) mg/dL AST 21 (14-36) U/L ALT 24 (9-52) U/L Alkaline Phosphatase 66 (38-126) U/L Total Protein 7.9 (6.3-8.2) g/dL Albumin 4.7 (3.5-5.0) g/dL Amylase 76 (30-110) U/L Lipase 177 (23-300) U/L Urine Color Colorless Urine Appearance Clear (Clear) Urine pH 5.5 (5.0-8.0) Ur Specific [place] 1.001 (1.001-1.035) Urine Protein Negative (Negative) Urine Glucose (UA) Negative (Negative) Urine Ketones Negative (Negative) Urine Blood Negative (Negative) Urine Nitrate Negative (Negative) Urine Bilirubin Negative (Negative) Urine Urobilinogen <2.0 (<2.0) mg/dL Ur Leukocyte Esterase Negative (Negative) Disposition Clinical Impression: Chronic pancreatitis Disposition: HOME SELF-CARE Condition: Fair Instructions: Abdominal Pain (ED) Prescriptions: oxyCODONE-APAP 10-325MG [Percocet 10-325 mg] 1 tab PO Q4H PRN #20 tab PRN Reason: Pain Referrals: Derek Dobbins MD [Primary Care Provider] - 1-2 days
[2016-08-14 13:59] VITALS: BP 128/75; PULSE 54; RESP 12
== END 2016-08-14 14:35 | disposition home or self-care (01) ==
LOC: EC 09:59
DX: K86.1 Other chronic pancreatitis (principal); R19.7 Diarrhea, unspecified; K21.9 Gastro-esophageal reflux disease without esophagitis; M06.9 Rheumatoid arthritis, unspecified; M81.0 Age-related osteoporosis without current pathological fracture; Z79.52 Long term (current) use of systemic steroids; Z79.891 Long term (current) use of opiate analgesic; Z79.899 Other long term (current) drug therapy; Z88.8 Allergy status to other drugs, medicaments and biological substances; Z90.49 Acquired absence of other specified parts of digestive tract
CPT/HCPCS: 36415; 93005; 80053; 82150; 83690; 85025; 81003; 71020; 74020; 99284; 96374; 96375; 96376; 96361 ×2; J2405; J1170

== ENCOUNTER 2016-08-18 07:57 | Emergency (ER) | payer OTHER ==
[2016-08-18 08:05] VITALS: RESP 16
--- NOTE | 2016-08-18 08:24 | ED ---
Abdominal Pain HPI - General Chief Complaint: Abdominal Pain Stated Complaint: abd pain Time Seen by Provider: 08/18/16 08:09 Source: patient Mode of arrival: ambulatory Limitations: no limitations - History of Present Illness Initial Comments: 41-year-old female patient with a past medical history significant for chronic pancreatitis presents to emergency department reporting upper abdominal pain that started around 0300 this afternoon. Patient states the pain is sharp and radiates into her upper back. Patient is having associated nausea and has vomited up small amounts of mucus. Patient states that these symptoms are typical of her previous exacerbations of pancreatitis. Patient is also having some diarrhea, but states this is chronic for her also due to her history of Crohn's disease. Patient denies any chest pain, shortness of breath, fever, chills, burning with urination, hematemesis, dark, bloody, or black stools. Patient states that she is currently out of her pain medications which include MS Contin both extended and immediate release. Patient states that she just established with a new primary care physician who has referred her to pain management and states that it will be a while before she can get in. Patient also has an appointment with Dr. Nagy her GI specialist on Tuesday. - Related Data Home Medications Medication Instructions Recorded Confirmed Alendronate Sodium [Fosamax] 70 mg PO MO 06/07/16 08/18/16 Morphine Sulfate ER [Ms Contin] 30 mg PO Q8H 06/07/16 08/18/16 SUMAtriptan SUCCINATE [Imitrex] 100 mg PO DAILY PRN 06/07/16 08/18/16 Adalimumab [Humira Pen] 40 mg SQ Q14D 07/10/16 08/18/16 Hydrocodone/Acetaminophen [[place] 1 tab PO Q6H PRN 07/10/16 08/18/16 10-325] Lipase/Protease/Amylase [Thor [place] 3 cap PO AC-TID 07/10/16 08/18/16 24,000 Units Capsule] predniSONE 20 mg PO DAILY 07/10/16 08/18/16 Omeprazole 20 mg PO BID 08/05/16 08/18/16 Ondansetron [Zofran ODT] 8 mg PO Q8HR PRN 08/18/16 08/18/16 Previous Rx's Medication Instructions Recorded Ondansetron Odt [Zofran ODT] 4 mg PO Q6H PRN #20 tab 08/05/16 oxyCODONE-APAP 10-325MG [Percocet 1 tab PO Q4H PRN #20 tab 08/14/16 10-325 mg] HYDROcodone/APAP 10-325MG [[place] 1 tab PO Q6H PRN #15 tab 08/18/16 10-325] Allergies Allergy/AdvReac Type Severity Reaction Status Date / Time metoclopramide [From Reglan] Allergy Intermediate Unknown Verified 08/18/16 08: 30 Review of Systems ROS Statement: Those systems with pertinent positive or pertinent negative responses have been documented in the HPI. ROS Other: All systems not noted in ROS Statement are negative. Past Medical History Past Medical History: Eye Disorder, GERD/Reflux, GI Bleed, Osteoarthritis (OA), Rheumatoid Arthritis (RA) Additional Past Medical History / Comment(s): pancreatitis, Crohn's disease pt stated her normal is loose to water stools and( occ maybe even a bit of blood) more than 3 /day,ulcers, bone and skin necrosis, GAYLE CATARACTS, UTI'S, past renal failure d/t dehydration, migraine, osteoporosis, 2 spinal fx-wore a brace. History of Any Multi-Drug Resistant Organisms: None Reported Past Surgical History: Cholecystectomy Additional Past Surgical History / Comment(s): colonoscopies, egd's Past Anesthesia/Blood Transfusion Reactions: No Reported Reaction Additional Past Anesthesia/Blood Transfusion Reaction / Comment(s): has had 13 blood transfusion-no reaction Past Psychological History: No Psychological Hx Reported Additional Psychological History / Comment(s): pt recently moved [facility],lives with her parents.independant. Smoking Status: Never smoker Past Alcohol Use History: None Reported Past Drug Use History: None Reported - Past Family History Father Family Medical History: Myocardial Infarction ([place]) Additional Family Medical History / Comment(s): biological father had hx of drug abuse Mother Family Medical History: Hyperlipidemia General Exam Limitations: no limitations General appearance: alert, in no apparent distress Head exam: Present: atraumatic, normocephalic Eye exam: Present: normal appearance, PERRL ENT exam: Present: normal exam, normal oropharynx, mucous membranes moist, TM's normal bilaterally, normal external ear exam. Absent: mucous membranes dry Neck exam: Present: normal inspection, full ROM. Absent: lymphadenopathy Respiratory exam: Present: normal lung sounds bilaterally. Absent: respiratory distress, wheezes, rales, rhonchi Cardiovascular Exam: Present: regular rate, normal rhythm, normal heart sounds. Absent: irregular rhythm GI/Abdominal exam: Present: soft, tenderness (Over the midepigastrium), normal bowel sounds. Absent: distended, guarding, rebound, rigid, organomegaly, mass, hernia Rectal exam: Present: deferred Extremities exam: Present: normal inspection Neurological exam: Present: alert, oriented X3, CN II-XII intact. Absent: altered Psychiatric exam: Present: normal affect, normal mood Skin exam: Present: warm, dry, intact, normal color. Absent: rash Course Vital Signs 08/18/16 08:02 Temperature 98.0 F Pulse Rate 86 Respiratory 16 Rate Blood Pressure 117/75 O2 Sat by Pulse 100 Oximetry Medical Decision Making - Medical Decision Making 41-year-old female patient presented to emergency department today for complaints of upper abdominal pain that radiated to her back. Vital signs, labs and x-ray were reviewed and found to be within normal limits. Patient was given IV fluids and pain medication while in the department which did improve her symptoms somewhat. Patient will be discharged home [place] [id number] for pain. Did discuss with patient her need to follow up with her follow-up primary care physician and specialists for any further pain management needs. She does have an appointment on Tuesday with her GI specialist Dr. Nagy. Patient agrees with this plan. - Lab Data Result diagrams: 08/18/16 08:00 08/18/16 08:00 Lab Results 08/18/16 08/18/16 08/18/16 Range/Units 07:58 08:00 08:00 WBC 5.7 (3.8-10.6) k/uL RBC 4.75 (3.80-5.40) m/uL Hgb 14.7 (11.4-16.0) gm/dL Hct 45.9 (34.0-46.0) % MCV 96.5 (80.0-100.0) fL MCH 31.0 (25.0-35.0) pg MCHC 32.1 (31.0-37.0) g/dL RDW 14.1 (11.5-15.5) % Plt Count 273 (150-450) k/uL Neutrophils % 66 % Lymphocytes % 26 % Monocytes % 5 % Eosinophils % 1 % Basophils % 0 % Neutrophils # 3.8 (1.3-7.7) k/uL Lymphocytes # 1.5 (1.0-4.8) k/uL Monocytes # 0.3 (0-1.0) k/uL Eosinophils # 0.1 (0-0.7) k/uL Basophils # 0.0 (0-0.2) k/uL Sodium 146 H (137-145) mmol/L Potassium 4.6 (3.5-5.1) mmol/L Chloride 106 (98-107) mmol/L Carbon Dioxide 28 (22-30) mmol/L Anion Gap 12 mmol/L BUN 8 (7-17) mg/dL Creatinine 0.71 (0.52-1.04) mg/dL Est GFR (MDRD) Af Amer >60 (>60 ml/min/1.73 sqM) Est GFR (MDRD) Non-Af >60 (>60 ml/min/1.73 sqM) Glucose 96 (74-99) mg/dL Calcium 10.2 (8.4-10.2) mg/dL Total Bilirubin 0.7 (0.2-1.3) mg/dL AST 20 (14-36) U/L ALT 26 (9-52) U/L Alkaline Phosphatase 72 (38-126) U/L Total Protein 7.9 (6.3-8.2) g/dL Albumin 4.6 (3.5-5.0) g/dL Amylase 85 (30-110) U/L Lipase 210 (23-300) U/L Urine Color Light Yellow Urine Appearance Clear (Clear) Urine pH 6.5 (5.0-8.0) Ur Specific [place] 1.005 (1.001-1.035) Urine Protein Negative (Negative) Urine Glucose (UA) Negative (Negative) Urine Ketones Negative (Negative) Urine Blood Negative (Negative) Urine Nitrate Negative (Negative) Urine Bilirubin Negative (Negative) Urine Urobilinogen <2.0 (<2.0) mg/dL Ur Leukocyte Esterase Negative (Negative) - EKG Data -: EKG Interpreted by 08/18/16 09:09 EKG obtained at 0904 reveals normal sinus rhythm with a ventricular rate of 75, OR interval 118, QRS duration 70, QTC 400, QTC 446. - Radiology Data Radiology results: report reviewed, image reviewed KUB x-ray obtained today reveals osseous structures which are intact. The bowel gas pattern is unspecific. Postsurgical changes to the right upper quadrant. Chronic-appearing deformities of the femoral head could be the basis of the femoral acetabular impingement. Likely developmental most likely related to osteochondroma. The impression was a nonspecific abdomen. Disposition Clinical Impression: Abdominal pain Disposition: HOME SELF-CARE Condition: Stable Instructions: Abdominal Pain (ED) Additional Instructions: Follow-up with primary care physician, pain management, GI specialist for any further pain medications. Return to emergency department for any worsening, new , or concerning symptoms. Prescriptions: HYDROcodone/APAP 10-325MG [[place] 10-325] 1 tab PO Q6H PRN #15 tab PRN Reason: pain Referrals: Derek Dobbins MD [Primary Care Provider] - 1-2 days Decision Date: 08/18/16 Decision Time: 09:29
[2016-08-18] MEDS ORDERED: ONDANSETRON 4 MG/2 ML VIAL IVP STA (08:25)
[2016-08-18] MEDS ORDERED: SODIUM CHLORIDE 0.9% 1,000 ML IV ONE (08:25)
[2016-08-18] MEDS ORDERED: HYDROmorphone 1 MG/ML 1 ML SYRINGE IVP STA (08:26)
[2016-08-18 09:03] LABS: Basophils % (A) 0 %; CH 31.1; CHCM 32.4; Eosinophils # (A) 0.1 k/uL (0-0.7); Eosinophils % (A) 1 %; HCT 45.9 % (34.0-46.0); HGB 14.7 gm/dL (11.4-16.0); Luc % (Auto) 2; Lymphocytes # (A) 1.5 k/uL (1.0-4.8); Lymphocytes % (A) 26 %; MCHC 32.1 g/dL (31.0-37.0); MCV 96.5 fL (80.0-100.0); Mean Platelet Volume 6.5; Monocytes # (A) 0.3 k/uL (0-1.0); Monocytes % (A) 5 %; Neutrophils # (A) 3.8 k/uL (1.3-7.7); Neutrophils % (A) 66 %; RBC 4.75 m/uL (3.80-5.40); RDW 14.1 % (11.5-15.5); WBC 5.7 k/uL (3.8-10.6); WBC (Perox) 5.83
[2016-08-18 09:17] LABS: ALT 26 U/L (9-52); AST 20 U/L (14-36); Alkaline Phosphatase 72 U/L (38-126); Amylase 85 U/L (30-110); Anion Gap 12 mmol/L; Blood Urea Nitrogen 8 mg/dL (7-17); Calcium 10.2 mg/dL (8.4-10.2); Carbon Dioxide 28 mmol/L (22-30); Chloride 106 mmol/L (98-107); Glucose 96 mg/dL (74-99); Non-African American GFR(MDRD) >60 (>60 ml/min/1.73 sqM); Potassium 4.6 mmol/L (3.5-5.1); Sodium 146 mmol/L (137-145); Total Bilirubin 0.7 mg/dL (0.2-1.3); Total Protein 7.9 g/dL (6.3-8.2)
[2016-08-18 09:19] LABS: Appearance,Urine Clear (Clear); Bilirubin,Urine Negative (Negative); Glucose,Urine (UA) Negative (Negative); Ketones,Urine Negative (Negative); Leukocyte Esterase,Urine Negative (Negative); Nitrite,Urine Negative (Negative); PH, Urine 6.5 (5.0-8.0); Protein,Urine Negative (Negative); Specific Gravity,Urine 1.005 (1.001-1.035); UA Billing (MACRO vs. MICRO) CHEM; Urobilinogen,Urine <2.0 mg/dL (<2.0)
--- NOTE | 2016-08-18 09:23 | XR ---
EXAMINATION TYPE: XR KUB DATE OF EXAM: 08/18/2016 9:12 AM COMPARISON: 08/14/2016 HISTORY: Upper abdominal pain TECHNIQUE: One view abdominal series FINDINGS: The osseous structures are intact. The bowel gas pattern is nonspecific. Postsurgical change right u pper quadrant. Chronic appearing deformities of the femoral head could been the basis of femoral acet abular impingement. Likely developmental most likely related to osteochondroma. IMPRESSION: 1. Nonspecific abdomen.
[2016-08-18 09:51] VITALS: BP 114/70; PULSE 78; TEMP 97.8
== END 2016-08-18 10:00 | disposition home or self-care (01) ==
LOC: EC 07:57
DX: R10.13 Epigastric pain (principal); R11.2 Nausea with vomiting, unspecified; R19.7 Diarrhea, unspecified; M54.9 Dorsalgia, unspecified; K21.9 Gastro-esophageal reflux disease without esophagitis; M06.9 Rheumatoid arthritis, unspecified; M81.0 Age-related osteoporosis without current pathological fracture; Z79.52 Long term (current) use of systemic steroids; Z79.891 Long term (current) use of opiate analgesic; Z79.899 Other long term (current) drug therapy; Z86.69 Personal history of other diseases of the nervous system and sense organs; Z88.8 Allergy status to other drugs, medicaments and biological substances; Z87.19 Personal history of other diseases of the digestive system; Z90.49 Acquired absence of other specified parts of digestive tract
CPT/HCPCS: 99284; 96374; 96375; 96361; 36415; 93005; 80053; 82150; 83690; 85025; 81003; 74000; J2405; J1170

== ENCOUNTER 2016-08-26 16:09 | Emergency (ER) | payer OTHER ==
[2016-08-26] MEDS ORDERED: ONDANSETRON 4 MG/2 ML VIAL IVP STA (17:16)
[2016-08-26] MEDS ORDERED: HYDROmorphone 1 MG/ML 1 ML SYRINGE IVP STA (17:16)
[2016-08-26] MEDS ORDERED: SODIUM CHLORIDE 0.9% 1,000 ML IV STA ×2 (17:16)
--- NOTE | 2016-08-26 17:56 | ED ---
General Adult HPI - General Chief complaint: Abdominal Pain Stated complaint: abd pain Time Seen by Provider: 08/26/16 16:56 Source: patient, RN notes reviewed Mode of arrival: ambulatory Limitations: no limitations - History of Present Illness Initial comments: Patient 41-year-old female significant past medical history for bigger days, who presents emergency room today with chief complaint of increased abdominal pain over the last 5 hours this does admit to pain in the epigastric area and left upper quadrant. Does admit to feeling nauseated with some vomiting. Does admit symptoms are consistent with finger times that she's had in the past. She states pink or tightness is due to medications that she took for Crohn's. Patient has had cholecystectomy. Denies any other complaints or symptoms. Patient denies any recent fever, chills, shortness of breath, chest pain, numbness or tingling, dysuria or hematuria, constipation or diarrhea, headaches or visual changes, or any other complaints. - Related Data Home Medications Medication Instructions Recorded Confirmed Alendronate Sodium [Fosamax] 70 mg PO MO 06/07/16 08/26/16 Morphine Sulfate ER [Ms Contin] 30 mg PO Q8H 06/07/16 08/26/16 SUMAtriptan SUCCINATE [Imitrex] 100 mg PO DAILY PRN 06/07/16 08/26/16 Adalimumab [Humira Pen] 40 mg SQ Q14D 07/10/16 08/26/16 Lipase/Protease/Amylase [Thor [place]rocio 3 cap PO AC-TID 07/10/16 08/26/16 24,000 Units Capsule] predniSONE 20 mg PO DAILY 07/10/16 08/26/16 Omeprazole 20 mg PO BID 08/05/16 08/26/16 Ondansetron [Zofran ODT] 8 mg PO Q8HR PRN 08/18/16 08/26/16 Previous Rx's Medication Instructions Recorded HYDROcodone/APAP 10-325MG [[place] 1 tab PO Q6H PRN #15 tab 08/18/16 10-325] Allergies Allergy/AdvReac Type Severity Reaction Status Date / Time metoclopramide [From Reglan] Allergy Intermediate Unknown Verified 08/26/16 17: 36 Review of Systems ROS Statement: Those systems with pertinent positive or pertinent negative responses have been documented in the HPI. ROS Other: All systems not noted in ROS Statement are negative. Past Medical History Past Medical History: Eye Disorder, GERD/Reflux, GI Bleed, Osteoarthritis (OA), Rheumatoid Arthritis (RA) Additional Past Medical History / Comment(s): pancreatitis, Crohn's disease pt stated her normal is loose to water stools and( occ maybe even a bit of blood) more than 3 /day,ulcers, bone and skin necrosis, GAYLE CATARACTS, UTI'S, past renal failure d/t dehydration, migraine, osteoporosis, 2 spinal fx-wore a brace. History of Any Multi-Drug Resistant Organisms: None Reported Past Surgical History: Cholecystectomy Additional Past Surgical History / Comment(s): colonoscopies, egd's Past Anesthesia/Blood Transfusion Reactions: No Reported Reaction Additional Past Anesthesia/Blood Transfusion Reaction / Comment(s): has had 13 blood transfusion-no reaction Past Psychological History: No Psychological Hx Reported Additional Psychological History / Comment(s): [facility]lives with her parents.independant. Smoking Status: Never smoker Past Alcohol Use History: None Reported Past Drug Use History: None Reported - Past Family History Father Family Medical History: Myocardial Infarction ([place]) Additional Family Medical History / Comment(s): biological father had hx of drug abuse Mother Family Medical History: Hyperlipidemia General Exam - General Exam Comments Initial Comments: General: The patient is awake and alert, in no distress, and does not appear acutely ill. Eye: Pupils are equal, round and reactive to light, extra-ocular movements are intact. No nystagmus. There is normal conjunctiva bilaterally. No signs of icterus. Ears, nose, mouth and throat: There are moist mucous membranes and no oral lesions. Neck: The neck is supple, there is no tenderness or JVD. Cardiovascular: There is a regular rate and rhythm. No murmur, rub or gallop is appreciated. Respiratory: Lungs are clear to auscultation, respirations are non-labored, breath sounds are equal. No wheezes, stridor, rales, or rhonchi. Gastrointestinal: Normal appearance then. Normal bowel sounds. Abdomen soft on palpation. Patient does have tenderness to palpation epigastric left upper quadrant. No rebound tenderness. No guarding. Musculoskeletal: Normal ROM, no tenderness. Strength 5/5. Sensation intact. Pulses equal bilaterally 2+. Neurological: A&O x 3. CN II-XII intact, There are no obvious motor or sensory deficits. Coordination appears grossly intact. Speech is normal. Skin: Skin is warm and dry and no rashes or lesions are noted. Psychiatric: Cooperative, appropriate mood & affect, normal judgment. Limitations: no limitations Course Vital Signs 08/26/16 16:52 Temperature 98.8 F Pulse Rate 95 Respiratory 20 Rate Blood Pressure 117/81 O2 Sat by Pulse 98 Oximetry Medical Decision Making - Medical Decision Making Patient's labs reviewed here in the emergency room. Patient be discharged home advised follow-up family doctor. - Lab Data Result diagrams: 08/26/16 17:40 08/26/16 17:40 Lab Results 08/26/16 08/26/16 08/26/16 Range/Units 17:40 17:40 17:40 WBC 8.1 (3.8-10.6) k/uL RBC 4.96 (3.80-5.40) m/uL Hgb 15.6 (11.4-16.0) gm/dL Hct 47.8 H (34.0-46.0) % MCV 96.4 (80.0-100.0) fL MCH 31.4 (25.0-35.0) pg MCHC 32.6 (31.0-37.0) g/dL RDW 14.1 (11.5-15.5) % Plt Count 278 (150-450) k/uL Neutrophils % 64 % Lymphocytes % 28 % Monocytes % 4 % Eosinophils % 1 % Basophils % 1 % Neutrophils # 5.2 (1.3-7.7) k/uL Lymphocytes # 2.3 (1.0-4.8) k/uL Monocytes # 0.3 (0-1.0) k/uL Eosinophils # 0.1 (0-0.7) k/uL Basophils # 0.1 (0-0.2) k/uL Sodium 142 (137-145) mmol/L Potassium 4.4 (3.5-5.1) mmol/L Chloride 101 (98-107) mmol/L Carbon Dioxide 27 (22-30) mmol/L Anion Gap 14 mmol/L BUN 14 (7-17) mg/dL Creatinine 0.80 (0.52-1.04) mg/dL Est GFR (MDRD) Af Amer >60 (>60 ml/min/1.73 sqM) Est GFR (MDRD) Non-Af >60 (>60 ml/min/1.73 sqM) Glucose 82 (74-99) mg/dL Calcium 10.7 H (8.4-10.2) mg/dL Total Bilirubin 0.7 (0.2-1.3) mg/dL AST 24 (14-36) U/L ALT 25 (9-52) U/L Alkaline Phosphatase 82 (38-126) U/L Total Protein 9.2 H (6.3-8.2) g/dL Albumin 5.3 H (3.5-5.0) g/dL Amylase 136 H (30-110) U/L Lipase 372 H (23-300) U/L Urine Color Yellow Urine Appearance Clear (Clear) Urine pH 5.5 (5.0-8.0) Ur Specific [place] 1.010 (1.001-1.035) Urine Protein Negative (Negative) Urine Glucose (UA) Negative (Negative) Urine Ketones Negative (Negative) Urine Blood Trace H (Negative) Urine Nitrate Negative (Negative) Urine Bilirubin Negative (Negative) Urine Urobilinogen <2.0 (<2.0) mg/dL Ur Leukocyte Esterase Negative (Negative) Urine RBC 2 (0-5) /hpf Urine WBC <1 (0-5) /hpf Ur Squamous Epith Cells 2 (0-4) /hpf Urine Bacteria Rare H (None) /hpf Urine Mucus Rare H (None) /hpf Disposition Clinical Impression: Chronic abdominal pain Disposition: HOME SELF-CARE Condition: Good Instructions: Abdominal Pain (ED) Additional Instructions: Please follow-up with family doctor in the next 2 days of symptoms have not improved. Please return to emergency room if the symptoms increase or worsen or for any other concerns. Time of Disposition: 18:42
[2016-08-26 18:01] LABS: Basophils # (A) 0.1 k/uL (0-0.2); Basophils % (A) 1 %; CH 31.5; CHCM 32.9; Eosinophils # (A) 0.1 k/uL (0-0.7); Eosinophils % (A) 1 %; HCT 47.8 % (34.0-46.0); HDW 2.13; HGB 15.6 gm/dL (11.4-16.0); Luc # (Auto) 0.19; Luc % (Auto) 2; Lymphocytes # (A) 2.3 k/uL (1.0-4.8); Lymphocytes % (A) 28 %; MCH 31.4 pg (25.0-35.0); MCHC 32.6 g/dL (31.0-37.0); MCV 96.4 fL (80.0-100.0); Mean Platelet Volume 7.2; Monocytes # (A) 0.3 k/uL (0-1.0); Monocytes % (A) 4 %; Neutrophils # (A) 5.2 k/uL (1.3-7.7); Neutrophils % (A) 64 %; RBC 4.96 m/uL (3.80-5.40); RDW 14.1 % (11.5-15.5); WBC 8.1 k/uL (3.8-10.6); WBC (Perox) 7.87
[2016-08-26 18:05] LABS: Appearance,Urine Clear (Clear); Bacteria,Urine Rare /hpf; Bilirubin,Urine Negative (Negative); Glucose,Urine (UA) Negative (Negative); Ketones,Urine Negative (Negative); Leukocyte Esterase,Urine Negative (Negative); Mucus,Urine Rare /hpf; Nitrite,Urine Negative (Negative); PH, Urine 5.5 (5.0-8.0); Particle Count 988; Protein,Urine Negative (Negative); RBC,Urine 2 /hpf (0-5); Squamous Epithelial Cell,Urine 2 /hpf (0-4); UA Billing (MACRO vs. MICRO) MICRO; Urobilinogen,Urine <2.0 mg/dL (<2.0); WBC,Urine <1 /hpf (0-5)
[2016-08-26 18:18] LABS: ALT 25 U/L (9-52); AST 24 U/L (14-36); Alkaline Phosphatase 82 U/L (38-126); Amylase 136 U/L (30-110); Anion Gap 14 mmol/L; Blood Urea Nitrogen 14 mg/dL (7-17); Calcium 10.7 mg/dL (8.4-10.2); Carbon Dioxide 27 mmol/L (22-30); Chloride 101 mmol/L (98-107); Glucose 82 mg/dL (74-99); Non-African American GFR(MDRD) >60 (>60 ml/min/1.73 sqM); Potassium 4.4 mmol/L (3.5-5.1); Sodium 142 mmol/L (137-145); Total Bilirubin 0.7 mg/dL (0.2-1.3); Total Protein 9.2 g/dL (6.3-8.2)
[2016-08-26 19:00] VITALS: BP 104/65; PULSE 102; RESP 18; TEMP 97.2
== END 2016-08-26 19:00 | disposition home or self-care (01) ==
LOC: EC 16:09
DX: R10.13 Epigastric pain (principal); K21.9 Gastro-esophageal reflux disease without esophagitis; M19.90 Unspecified osteoarthritis, unspecified site; K50.90 Crohn's disease, unspecified, without complications; M81.0 Age-related osteoporosis without current pathological fracture; M06.9 Rheumatoid arthritis, unspecified; Z88.8 Allergy status to other drugs, medicaments and biological substances; Z79.899 Other long term (current) drug therapy
CPT/HCPCS: 99284; 96374; 96375; 96361; 36415; 80053; 82150; 83690; 85025; 81001; J2405; J1170; 99285

== ENCOUNTER 2016-08-27 08:13 | Inpatient (IN) | payer OTHER ==
[2016-08-27] MEDS ORDERED: ONDANSETRON 4 MG/2 ML VIAL IVP STA (08:42)
[2016-08-27] MEDS ORDERED: SODIUM CHLORIDE 0.9% 1,000 ML IV STA (08:42)
--- NOTE | 2016-08-27 09:04 | ED ---
Abdominal Pain HPI - General Chief Complaint: Abdominal Pain Stated Complaint: crohns Time Seen by Provider: 08/27/16 08:42 Source: patient, RN notes reviewed Mode of arrival: ambulatory Limitations: no limitations - History of Present Illness Initial Comments: 41-year-old female presents emergency Department chief complaint abdominal pain , diarrhea and nausea. Patient states that she did have some episodes of vomiting. Patient states she has a history of Crohn's and chronic pancreatitis. Patient was seen in emergency department yesterday. Patient states that she's had increased mucousy stools denies any melena or hematochezia. Patient denies any fevers, chills. She states she does have some mild abdominal pain with is not other usual. Patient states that she did see Dr. Jones GI specialist in which that her restart her Humira once she has insurance approval. Patient denies any chest pain or shortness of breath. Denies any dysuria hematuria. - Related Data Home Medications Medication Instructions Recorded Confirmed Alendronate Sodium [Fosamax] 70 mg PO MO 06/07/16 08/26/16 Morphine Sulfate ER [Ms Contin] 30 mg PO Q8H 06/07/16 08/26/16 SUMAtriptan SUCCINATE [Imitrex] 100 mg PO DAILY PRN 06/07/16 08/26/16 Adalimumab [Humira Pen] 40 mg SQ Q14D 07/10/16 08/26/16 Lipase/Protease/Amylase [Thor Ambrocio 3 cap PO AC-TID 07/10/16 08/26/16 24,000 Units Capsule] predniSONE 20 mg PO DAILY 07/10/16 08/26/16 Omeprazole 20 mg PO BID 08/05/16 08/26/16 Ondansetron [Zofran ODT] 8 mg PO Q8HR PRN 08/18/16 08/26/16 Previous Rx's Medication Instructions Recorded HYDROcodone/APAP 10-325MG [[employer] 1 tab PO Q6H PRN #15 tab 08/18/16 10-325] Dicyclomine [Bentyl] 20 mg PO TID #30 tablet 08/27/16 Allergies Allergy/AdvReac Type Severity Reaction Status Date / Time metoclopramide [From Reglan] Allergy Intermediate Unknown Verified 08/27/16 08: 41 Review of Systems ROS Statement: Those systems with pertinent positive or pertinent negative responses have been documented in the HPI. ROS Other: All systems not noted in ROS Statement are negative. Past Medical History Past Medical History: Eye Disorder, GERD/Reflux, GI Bleed, Osteoarthritis (OA), Rheumatoid Arthritis (RA) Additional Past Medical History / Comment(s): pancreatitis, Crohn's disease pt stated her normal is loose to water stools and( occ maybe even a bit of blood) more than 3 /day,ulcers, bone and skin necrosis, GAYLE CATARACTS, UTI'S, past renal failure d/t dehydration, migraine, osteoporosis, 2 spinal fx-wore a brace. History of Any Multi-Drug Resistant Organisms: None Reported Past Surgical History: Cholecystectomy Additional Past Surgical History / Comment(s): colonoscopies, egd's Past Anesthesia/Blood Transfusion Reactions: No Reported Reaction Additional Past Anesthesia/Blood Transfusion Reaction / Comment(s): has had 13 blood transfusion-no reaction Past Psychological History: No Psychological Hx Reported Additional Psychological History / Comment(s): pt recently moved here from [facility],lives with her parents.independant. Smoking Status: Never smoker Past Alcohol Use History: None Reported Past Drug Use History: None Reported - Past Family History Father Family Medical History: Myocardial Infarction (SD) Additional Family Medical History / Comment(s): biological father had hx of drug abuse Mother Family Medical History: Hyperlipidemia General Exam Limitations: no limitations General appearance: alert, in no apparent distress Head exam: Present: atraumatic, normocephalic, normal inspection Neck exam: Present: normal inspection, full ROM. Absent: tenderness, meningismus, lymphadenopathy Respiratory exam: Present: normal lung sounds bilaterally. Absent: respiratory distress, wheezes, rales, rhonchi, stridor Cardiovascular Exam: Present: regular rate, normal rhythm, normal heart sounds. Absent: systolic murmur, diastolic murmur, rubs, gallop, clicks GI/Abdominal exam: Present: soft, tenderness (Mild diffuse), normal bowel sounds. Absent: distended, guarding, rebound, rigid Back exam: Absent: CVA tenderness (R), CVA tenderness (L) Neurological exam: Present: alert, oriented X3, CN II-XII intact Skin exam: Present: warm, dry, intact, normal color. Absent: rash Course Vital Signs 08/27/16 08:40 Temperature 98.5 F Pulse Rate 81 Respiratory 20 Rate Blood Pressure 121/76 O2 Sat by Pulse 99 Oximetry Medical Decision Making - Medical Decision Making 41-year-old female presented for abdominal discomfort/chronic pancreatitis/Crohn 's. Patient's laboratory with normal it's does smoke better than yesterday. Patient we discharged with [place]. I told her I would not write her narcotic pain medications as the last visit I did see her pro-her pain prescription and she had refilled 90 [employer] tablets the same day in which she told me that she had no pain medications. Patient will be discharged at this time to follow-up with Dr. Dobbins and Dr. Jones. - Lab Data Result diagrams: 08/27/16 09:11 08/27/16 09:11 Lab Results 08/27/16 08/27/16 08/27/16 Range/Units 08:55 09:11 09:11 WBC 7.6 (3.8-10.6) k/uL RBC 5.22 (3.80-5.40) m/uL Hgb 16.4 H (11.4-16.0) gm/dL Hct 51.0 H (34.0-46.0) % MCV 97.7 (80.0-100.0) fL MCH 31.4 (25.0-35.0) pg MCHC 32.1 (31.0-37.0) g/dL RDW 14.0 (11.5-15.5) % Plt Count 304 (150-450) k/uL Neutrophils % 74 % Lymphocytes % 20 % Monocytes % 4 % Eosinophils % 1 % Basophils % 0 % Neutrophils # 5.6 (1.3-7.7) k/uL Lymphocytes # 1.5 (1.0-4.8) k/uL Monocytes # 0.3 (0-1.0) k/uL Eosinophils # 0.0 (0-0.7) k/uL Basophils # 0.0 (0-0.2) k/uL Sodium 145 (137-145) mmol/L Potassium 4.9 (3.5-5.1) mmol/L Chloride 103 (98-107) mmol/L Carbon Dioxide 27 (22-30) mmol/L Anion Gap 15 mmol/L BUN 12 (7-17) mg/dL Creatinine 0.80 (0.52-1.04) mg/dL Est GFR (MDRD) Af Amer >60 (>60 ml/min/1.73 sqM) Est GFR (MDRD) Non-Af >60 (>60 ml/min/1.73 sqM) Glucose 90 (74-99) mg/dL Calcium 11.2 H (8.4-10.2) mg/dL Total Bilirubin 1.4 H (0.2-1.3) mg/dL AST 26 (14-36) U/L ALT 24 (9-52) U/L Alkaline Phosphatase 88 (38-126) U/L Total Protein 9.7 H (6.3-8.2) g/dL Albumin 5.6 H (3.5-5.0) g/dL Amylase 108 (30-110) U/L Lipase 262 (23-300) U/L Urine Color Yellow Urine Appearance Clear (Clear) Urine pH 5.5 (5.0-8.0) Ur Specific [place] 1.010 (1.001-1.035) Urine Protein Negative (Negative) Urine Glucose (UA) Negative (Negative) Urine Ketones Negative (Negative) Urine Blood Trace H (Negative) Urine Nitrate Negative (Negative) Urine Bilirubin Negative (Negative) Urine Urobilinogen <2.0 (<2.0) mg/dL Ur Leukocyte Esterase Negative (Negative) Urine RBC <1 (0-5) /hpf Ur Squamous Epith Cells 1 (0-4) /hpf Urine Bacteria Occasional H (None) /hpf Urine Mucus Occasional H (None) /hpf Disposition Clinical Impression: Chronic abdominal pain Disposition: HOME SELF-CARE Condition: Stable Instructions: Abdominal Pain (ED) Additional Instructions: Please follow-up with primary care physician, GI specialist.Please return to the Emergency Department if symptoms worsen or any other concerns. Prescriptions: Dicyclomine [Bentyl] 20 mg PO TID #30 tablet Time of Disposition: 10:04
[2016-08-27 09:11] LABS: Appearance,Urine Clear (Clear); Bacteria,Urine Occasional /hpf; Bilirubin,Urine Negative (Negative); Glucose,Urine (UA) Negative (Negative); Ketones,Urine Negative (Negative); Leukocyte Esterase,Urine Negative (Negative); Mucus,Urine Occasional /hpf; Nitrite,Urine Negative (Negative); PH, Urine 5.5 (5.0-8.0); Particle Count 2290; Protein,Urine Negative (Negative); RBC,Urine <1 /hpf (0-5); Squamous Epithelial Cell,Urine 1 /hpf (0-4); UA Billing (MACRO vs. MICRO) MICRO; Urobilinogen,Urine <2.0 mg/dL (<2.0)
[2016-08-27 09:24] LABS: Basophils % (A) 0 %; CH 31.4; CHCM 32.2; Eosinophils % (A) 1 %; HDW 2.09; HGB 16.4 gm/dL (11.4-16.0); Luc # (Auto) 0.13; Luc % (Auto) 2; Lymphocytes # (A) 1.5 k/uL (1.0-4.8); Lymphocytes % (A) 20 %; MCH 31.4 pg (25.0-35.0); MCHC 32.1 g/dL (31.0-37.0); MCV 97.7 fL (80.0-100.0); Mean Platelet Volume 6.5; Monocytes # (A) 0.3 k/uL (0-1.0); Monocytes % (A) 4 %; Neutrophils # (A) 5.6 k/uL (1.3-7.7); Neutrophils % (A) 74 %; RBC 5.22 m/uL (3.80-5.40); WBC 7.6 k/uL (3.8-10.6); WBC (Perox) 7.62
[2016-08-27] MEDS ORDERED: KETOROLAC 30 MG/ML 1 ML VIAL IVP STA (09:39)
[2016-08-27 09:43] LABS: ALT 24 U/L (9-52); AST 26 U/L (14-36); Alkaline Phosphatase 88 U/L (38-126); Amylase 108 U/L (30-110); Anion Gap 15 mmol/L; Blood Urea Nitrogen 12 mg/dL (7-17); Calcium 11.2 mg/dL (8.4-10.2); Carbon Dioxide 27 mmol/L (22-30); Chloride 103 mmol/L (98-107); Glucose 90 mg/dL (74-99); Non-African American GFR(MDRD) >60 (>60 ml/min/1.73 sqM); Potassium 4.9 mmol/L (3.5-5.1); Sodium 145 mmol/L (137-145); Total Bilirubin 1.4 mg/dL (0.2-1.3); Total Protein 9.7 g/dL (6.3-8.2)
--- NOTE | 2016-08-27 13:19 | ED ---
Medical Decision Making - Lab Data Result diagrams: 08/27/16 09:11 08/27/16 09:11 <Jam Culp - Last Filed: 08/27/16 13:19> - Lab Data Result diagrams: 08/27/16 09:11 08/27/16 09:11 <Matt Molina - Last Filed: 08/27/16 13:27> - Medical Decision Making I did personally do a [id number] examination the patient and did evaluate the chief complaint. Patient complains of persistent pain in spite of using her home medication. I did review the lab work and imaging no acute findings I did discuss case with Dr. Healy patient will be admitted with consultation by GI. (Matt Molina) - Lab Data Lab Results 08/27/16 08/27/16 08/27/16 Range/Units 08:55 09:11 09:11 WBC 7.6 (3.8-10.6) k/uL RBC 5.22 (3.80-5.40) m/uL Hgb 16.4 H (11.4-16.0) gm/dL Hct 51.0 H (34.0-46.0) % MCV 97.7 (80.0-100.0) fL MCH 31.4 (25.0-35.0) pg MCHC 32.1 (31.0-37.0) g/dL RDW 14.0 (11.5-15.5) % Plt Count 304 (150-450) k/uL Neutrophils % 74 % Lymphocytes % 20 % Monocytes % 4 % Eosinophils % 1 % Basophils % 0 % Neutrophils # 5.6 (1.3-7.7) k/uL Lymphocytes # 1.5 (1.0-4.8) k/uL Monocytes # 0.3 (0-1.0) k/uL Eosinophils # 0.0 (0-0.7) k/uL Basophils # 0.0 (0-0.2) k/uL Sodium 145 (137-145) mmol/L Potassium 4.9 (3.5-5.1) mmol/L Chloride 103 (98-107) mmol/L Carbon Dioxide 27 (22-30) mmol/L Anion Gap 15 mmol/L BUN 12 (7-17) mg/dL Creatinine 0.80 (0.52-1.04) mg/dL Est GFR (MDRD) Af Amer >60 (>60 ml/min/1.73 sqM) Est GFR (MDRD) Non-Af >60 (>60 ml/min/1.73 sqM) Glucose 90 (74-99) mg/dL Calcium 11.2 H (8.4-10.2) mg/dL Total Bilirubin 1.4 H (0.2-1.3) mg/dL AST 26 (14-36) U/L ALT 24 (9-52) U/L Alkaline Phosphatase 88 (38-126) U/L Total Protein 9.7 H (6.3-8.2) g/dL Albumin 5.6 H (3.5-5.0) g/dL Amylase 108 (30-110) U/L Lipase 262 (23-300) U/L Urine Color Yellow Urine Appearance Clear (Clear) Urine pH 5.5 (5.0-8.0) Ur Specific [place] 1.010 (1.001-1.035) Urine Protein Negative (Negative) Urine Glucose (UA) Negative (Negative) Urine Ketones Negative (Negative) Urine Blood Trace H (Negative) Urine Nitrate Negative (Negative) Urine Bilirubin Negative (Negative) Urine Urobilinogen <2.0 (<2.0) mg/dL Ur Leukocyte Esterase Negative (Negative) Urine RBC <1 (0-5) /hpf Ur Squamous Epith Cells 1 (0-4) /hpf Urine Bacteria Occasional H (None) /hpf Urine Mucus Occasional H (None) /hpf Disposition <Jam Culp - Last Filed: 08/27/16 13:19> <Matt Molina - Last Filed: 08/27/16 13:27> Clinical Impression: Chronic abdominal pain, Crohns disease Disposition: ADMITTED IP TO THIS [facility] Additional Instructions: Please follow-up with primary care physician, GI specialist.Please return to the Emergency Department if symptoms worsen or any other concerns. Prescriptions: Dicyclomine [Bentyl] 20 mg PO TID #30 tablet Prochlorperazine [Compazine] 5 mg PO Q8HR #10 tab Referrals: Derek Dobbins MD [Primary Care Provider] - 1-2 days
[2016-08-27] MEDS ORDERED: NALOXONE 0.4 MG/ML 1 ML VIAL IV PRN (13:20)
[2016-08-27] MEDS ORDERED: methylPREDNISolone SOD SUCCI 125 MG/2 ML VIAL IV STA (13:22)
[2016-08-27] MEDS: HYDROcodone/APAP 10-325MG 1 EACH TAB PO PRN (13:37)
[2016-08-27] MEDS: SODIUM CHLORIDE 0.9% 1,000 ML IV SCH ×2 (14:36→22:08)
[2016-08-27] MEDS: ONDANSETRON 4 MG/2 ML VIAL IVP PRN (16:54)
[2016-08-27] MEDS ORDERED: MORPHINE SULFATE 2 MG/ML SYRINGE IVP PRN (17:11)
[2016-08-27] MEDS: MORPHINE SULFATE 2 MG/ML SYRINGE IVP PRN ×3 (17:27→23:20)
[2016-08-27] MEDS ORDERED: methylPREDNISolone SOD SUCCI 125 MG/2 ML VIAL IV SCH (18:00)
[2016-08-27] MEDS: ENOXAPARIN 40 MG/0.4 ML SYRINGE SQ SCH (18:38)
[2016-08-27] MEDS: methylPREDNISolone SOD SUCCI 40 MG/ML 1 ML VIAL IV SCH ×2 (18:38→23:58)
[2016-08-28] MEDS: MORPHINE SULFATE 2 MG/ML SYRINGE IVP PRN ×3 (04:20→11:11)
[2016-08-28] MEDS: ONDANSETRON 4 MG/2 ML VIAL IVP PRN ×2 (04:22→13:21)
[2016-08-28] MEDS: methylPREDNISolone SOD SUCCI 40 MG/ML 1 ML VIAL IV SCH ×3 (05:57→18:06)
[2016-08-28] MEDS: SODIUM CHLORIDE 0.9% 1,000 ML IV SCH ×3 (05:57→22:35)
[2016-08-28 09:43] VITALS: BMI 17.2
[2016-08-28] MEDS ORDERED: ONDANSETRON ODT 8 MG TAB.RAPDIS PO PRN (09:49)
[2016-08-28] MEDS ORDERED: LIPASE 5,000/PROTEASE 17,000/AMYLASE 27,0000 PO SCH (10:00)
--- NOTE | 2016-08-28 10:32 | HP ---
DATE OF ADMISSION: 08/27/2016 DATE OF SERVICE: 08/27/2016 PRESENTING COMPLAINT: Abdominal pain, diarrhea. HISTORY OF PRESENTING COMPLAINT: This is a 41-year-old patient who follows with Dr. Dobbins was recently in the hospital and seen by Dr. Jamari Bonilla/Dr. Nagy. The patient had a diagnosis of Crohn disease and also has got rheumatoid arthritis for which she takes Humira. Recently saw Dr. Kinsey and rheumatoid arthritis minimal ( ) controlled. The patient also has chronic pancreatitis and gets quite a bit of baseline pain. She did go in and seen Dr. Dobbins, but was told that she has to see a pain management doctor for which there is about a 3-week wait. Patient states that she has been having about 10 bowel movements a day and barely able to eat though and decided to come in. There is no fever. Occasional nausea. REVIEW OF SYSTEMS: CONSTITUTIONAL: Tired, some weight loss. HEENT: None. RESPIRATORY: None. CARDIOVASCULAR: None. GASTROINTESTINAL: As above. GENITOURINARY: None. MUSCULOSKELETAL: Pain in the joints. DERMATOLOGICAL: None. HEMATOLOGICAL: None. LYMPHATIC: None. PSYCHIATRY: None. NEUROLOGICAL: None. Past medical history of Crohn disease, rheumatoid arthritis, chronic pancreatitis. PAST SURGICAL HISTORY: Cholecystectomy. SOCIAL HISTORY: Patient moved from [place], living with her parents and sister. No smoking. FAMILY HISTORY: Myocardial infarction. HOME MEDICATIONS: 1. Humira 40 mg subcu every 14 days. 2. MS Contin 30 mg p.o. q.8. 3. Creon 24,000, three capsules a.c. t.i.d. 4. Merigold 10 one tablet q.6 p.r.n. 5. Fosamax 70 mg p.o. Tuesday. 6. Imitrex 100 mg p.o. daily p.r.n. 7. Zofran 8 mg p.o. q.8 p.r.n. 8. Omeprazole 20 mg p.o. b.i.d. 9. Prednisone 20 mg a day. 10. Compazine 5 mg p.o. q.8. 11. Bentyl 20 mg p.o. t.i.d. Allergy to REGLAN. ON EXAMINATION: VITAL SIGNS ON PRESENTATION: Temperature 97, pulse 78, respirations 16, blood pressure 120/80, pulse ox 98% on room air. GENERAL APPEARANCE: Thin build, BMI of 17.2, lying in bed, tired appearing. EYES: Pupils equal. Conjunctiva pale. HEENT: External appearance of nose and ears normal. Oral cavity dry. NECK: JVD not raised. Mass not palpable. RESPIRATORY: Effort normal. Lungs are clear. CARDIOVASCULAR: First and second sounds normal. No edema. ABDOMEN: Soft, some epigastric tenderness. No guarding or rigidity. Liver and spleen not palpable. LYMPHATIC: No lymph nodes palpable in neck or axillae. PSYCHIATRY: Alert and oriented x3. Mood and affect slightly anxious appearing. MUSCULOSKELETAL: Some wasting of the muscles. INVESTIGATIONS: White count 7.6, hemoglobin 16.4. Potassium 4.9. Calcium 11.2. Amylase and lipase was 108 and 262. ASSESSMENT: 1. Possible acute exacerbation of Crohn disease giving multiple stools. 2. Chronic rheumatoid arthritis. 3. Chronic pancreatitis, present on admission. 4. Moderate protein calorie malnutrition with decreased muscle mass, decreased oral intake, decreased albumin. PLAN: Patient was put on IV Solu-Medrol. Home medications are resumed. This is a chronic issue and patient will have to be established with a pain doctor. Care was discussed with the patient. Patient will be tried on clear liquids for now and GI was consulted. SPECIAL NOTE: This patient was seen by me yesterday evening on 08/27/16, which is my date of service and my date of history and physical.
[2016-08-28] MEDS: ENOXAPARIN 40 MG/0.4 ML SYRINGE SQ SCH (10:36)
[2016-08-28] MEDS: PANTOPRAZOLE 40 MG TABLET PO SCH ×2 (10:36→18:07)
[2016-08-28] MEDS: MORPHINE SULFATE ER 30 MG TABLET PO SCH ×2 (12:04→18:07)
[2016-08-28] MEDS: LIPASE 5,000/PROTEASE 17,000/AMYLASE 27,0000 PO SCH ×2 (13:27→18:07)
--- NOTE | 2016-08-28 18:14 | P.CN ---
Psychiatric Consult - . Consult:: 08/28/16 18:06 Identifying data: This patient is a 41-year-old female who was admitted to the hospital with ongoing pain related to her Crohn's disease rheumatoid arthritis and chronic pancreatitis. I'm asked to consult regarding depression. The patient states that she is very frustrated as she feels her medical concerns or not being handled sufficiently. She continues to struggle primarily with pain as it relates to her medical comorbidities. She has recently moved from [place] and is establishing care in this area. She does endorse some symptoms of depression and tearfulness low energy and feelings of frustration. Apparently in the hospital she made some hopeless statements and states she doesn't want to live like this. With me she clarifies that she does not have any acute intent or plan of harming herself. She does want her medical issues addressed in her quality of life to improve again. She described herself as a happy outgoing person who wants to be productive. She is endorsing no homicidal ideation she is endorsing no symptoms of psychosis. No history of hypomanic or manic episodes. Past psychiatric history: No inpatient psychiatric care no history of suicide attempts. She states that she's never been placed on any psychotropic medications. Past medical history: She is diagnosed with Crohn's disease since the age of 16 , rheumatoid arthritis, chronic pancreatitis. She states that she has done well with she marijuana in the past but has been off of it for a month and a half and is trying to get back on that medication. ALLERGIES metoclopramide Chemical dependency history: She reports no use of alcohol marijuana or other illicit drugs. She has used marijuana medically [id number] and is applying for a medical marijuana card here. Social history: The patient is 41 years old she is she resides with her parents and sometimes her sister. She has applied for so security disability and this was not approved but she is appealing the claim. She has a high school education with 2-1/2 years of college. No service. She has 1 brother and 2 sisters. No legal history. No history of abuse. Mental status exam: The patient is a thin female appearing her stated age. She is dressed in hospital attire seated upright in bed. She does wear eyeglasses. Eye contact is appropriate. She is pleasant and cooperative. She describes a depressed and frustrated mood. She does endorse some hopelessness thinking at times but states she has no acute suicidal ideation intent or plan. No homicidal ideation intent or plan. There is no evidence of psychosis she is reporting no auditory or visual hallucinations or specific delusions. She does not present hypomanic or manic. Insight and judgment appears to be grossly intact. Cognitively she appears to be grossly intact. There is no psychomotor agitation or slowing there is no verbal or physical aggressiveness. Impressions 1. Major depressive disorder moderate 2. Medical morbidities include rheumatoid arthritis, and Crohn's disease, chronic pancreatitis 3. Psychosocial dysfunction secondary to mood symptoms and medical comorbidities Plan: The patient does not require inpatient psychiatric admission. Her is now appreciated imminent safety risk. We discussed addressing depressive symptoms with use of Cymbalta and she will get this consideration. We discussed having her work with an individual therapist for psychotherapy utilizing CBT. She was given the phone number for the outpatient mental health clinic. We will continue to follow while medically admitted.
[2016-08-28] MEDS ORDERED: MORPHINE SULFATE 4 MG/ML SYRINGE IV PRN (19:19)
--- NOTE | 2016-08-28 19:45 | PN ---
DATE OF SERVICE: 08/28/2016 PRESENTING COMPLAINT: Abdominal pain, diarrhea. INTERVAL HISTORY: This is a patient with Crohn's disease who presented with uncontrolled pain, which is more of baseline. Her family doctor, Dr. Dobbins, did not want to give any more pain medicine. She is awaiting assessment by pain specialist. Patient did tolerate liquid diet. I did advance the diet. I just spoke to the nurse on the phone. The patient actually already had a tuna sandwich. Patient only had 3 bowel movements since yesterday. Has been noticed to be up and about in the hallway. Awaiting Dr. Nagy in to see the patient. Review of systems done for constitutional, cardiovascular, GI, pulmonary; relevant findings as above. Current medications include IV Solu-Medrol and morphine. On examination, temperature 98.8, pulse 80, respirations 20, blood pressure 122/65, pulse ox 100% on room air. GENERAL APPEARANCE: More comfortable, not in distress. Division normal. NECK: JVD not raised. Mass not palpable. RESPIRATORY: Effort normal. Lungs are clear. CARDIOVASCULAR: First and second sounds normal. ABDOMEN: Soft, epigastric tenderness. No guarding or rigidity. PSYCHIATRY: Alert and oriented x3. Mood and affect slightly anxious. INVESTIGATIONS: White count 7.6, hemoglobin 16.4. Potassium 4.9. These labs are from yesterday. ASSESSMENT: 1. Acute exacerbation of Crohn's disease with multiple episodes, now much improved, down to 3 stools a day. 2. Chronic rheumatoid arthritis. 3. Chronic pancreatitis, present at admission. 4. Moderate protein calorie malnutrition, decreased muscle mass, decreased oral intake. PLAN: Awaiting for Dr. Nagy's input. This evening will switch the patient to oral prednisone and also discontinue IV morphine. Will let GI decide if anything further needs to be done.
[2016-08-28] MEDS: HYDROcodone/APAP 10-325MG 1 EACH TAB PO PRN (20:09)
[2016-08-28 23:50] VITALS: RESP 16
[2016-08-29] MEDS: MORPHINE SULFATE ER 30 MG TABLET PO SCH ×3 (03:07→17:37)
[2016-08-29] MEDS: ONDANSETRON 4 MG/2 ML VIAL IVP PRN ×2 (06:11→17:32)
[2016-08-29] MEDS: LIPASE 5,000/PROTEASE 17,000/AMYLASE 27,0000 PO SCH ×3 (07:18→17:32)
[2016-08-29] MEDS: SODIUM CHLORIDE 0.9% 1,000 ML IV SCH ×2 (07:18→20:57)
[2016-08-29] MEDS: PANTOPRAZOLE 40 MG TABLET PO SCH ×2 (07:19→17:37)
[2016-08-29] MEDS: ENOXAPARIN 40 MG/0.4 ML SYRINGE SQ SCH (08:56)
[2016-08-29] MEDS: HYDROcodone/APAP 10-325MG 1 EACH TAB PO PRN (15:33)
--- NOTE | 2016-08-29 17:23 | P.PN ---
Progress Note - Text Interval history: The patient is found in her room she is lying in bed awake. She reports that her mood is better. She was able to tolerate some solid food today. She states that she does plan on scheduling with an outpatient therapist as suggested yesterday. She states that she does not wish to start the Cymbalta at this time. She is endorsing no suicidal ideation intent or plan. The patient is a thin female appearing her stated age. She is dressed in her own clothing. Eye contact is appropriate. She is pleasant upon approach. She reports her mood is better. She is not feeling hopeless she describes no suicidal or homicidal ideation intent or plan. There is no report or evidence of psychosis there is no evidence of hypomanic or manic symptoms. Insight and judgment grossly intact. She is oriented to person place and date. Plan: History of major depressive disorder, the patient will call outpatient counseling for a an appointment with an individual psychotherapist to process her stressors and work on coping skill development. She is encouraged to consider use of Cymbalta. There is no imminent safety risk she is appropriate for outpatient mental health treatment.
--- NOTE | 2016-08-29 18:58 | P.CONS ---
History of Present Illness - Reason for Consult Consult date: 08/29/16 - Chief Complaint Abdominal Pain. - History of Present Illness The patient is a 41-year-old female who presented to the emergency room with the complaints of abdominal pains, diarrhea, nausea and vomiting. The patient was in the emergency room the day before and she returned because of lack of improvement and mucousy rectal output and was admitted for further management. The patient was hospitalized last month for pancreatitis and I have seen her in the office as outpatient August 19. Patient has 3-5 bowel movements on the average which are loose or slightly deformed, and would have up to 10 more liquidy movements a day when things are acting up. This has been the case for the last 2-3 days prior to returning to the hospital. At the time of my visit today, the patient was sitting comfortably in her bed having her meal. It appears that her nausea, vomiting and abdominal pain is responding to her medical protocol in the hospital. The patient was diagnosed with Crohn's disease at age 16 and to her recollection it involved both the large and the small intestine. She has not had surgery for her Crohn's although she was recommended surgery in the past. Her last colonoscopy was 2-3 years ago. The patient has lived in [place] most of her life then moved to [facility] for couple years and has recently moved in April to our area to live with her parents and sister. The patient was diagnosed to have pancreatitis around 7 years ago and was told it was secondary to her sulfa-based drugs and Imuran. She has had a chronic relapsing coarse while she was living in [facility], however, it seems that her course worsened since she moved to this area in April 2016 as she had 8 episodes since, while she has not had an episode for 18 months before moving here. She blames that on changing her pain management protocol and changing her pancreas enzyme replacement schedule which happened since she has moved as well as running out of humira and not being able to have it renewed making her miss 7-8 week of treatment. The patient has rheumatoid arthritis and she has seen Dr. Kinsey locally who was able to provide her with 2 doses of Humira. I have initiated contacts with her insurance after I have seen her in the office earlier this month to try to get approval for her treatment continuation with Humira. The patient had normal amylase and lipase on admission. She also believes that the pattern of her pain is more like when her Crohn's is acting up more than her pancreatitis. Yet she is experiencing severe back and hip pains and other joint pains. She denied any fever or chills. She has lost 15-17 pounds since she moved to this area in April. The patient main issue is seems to be pain management. She was taking 30 mg of morphine every 8 hours for a long time which has been abruptly discontinued and was given Tanner 10 instead. She has been directed to follow with pain management but has no appointment for few weeks. Review of Systems Constitutional: Denies fever, chills or sweats. Lost 15 lbs since April 2016 HEENT: Negative for migraines, eye disorder, denies hearing loss, denies earaches, drainage, tinnitus, oral mucosal lesions, dysphagia, or odynophagia. CARDIAC: Negative for chest pain, arrhythmias, or palpitation. RESPIRATORY: Negative for shortness of breath, hemoptysis, cough, or sputum production. GI: See HPI for pertinent findings. : Negative for hematuria, urgency, frequency, polyuria, or dysuria. DISPLAY AND BANNER DESIGNER: Denies possibility of . Negative vaginal discharge. MUSCULOSKELETAL: Osteoarthritis. Rheumatoid arthritis. NEUROLOGIC: Negative for stroke or TIA. ENDOCRINE: Negative for thyroid problems. SKIN: Negative for rash or itching. PSYCHIATRIC: Negative history for depression and anxiety Past Medical History Past Medical History: Eye Disorder, GERD/Reflux, GI Bleed, Osteoarthritis (OA), Rheumatoid Arthritis (RA) Additional Past Medical History / Comment(s): pancreatitis, Crohn's disease since age 16 pt stated her normal is loose to water stools and( occ maybe even a bit of blood) more than 3 /day,ulcers, been a lot of steroids "bone and skin necrosis", GAYLE CATARACTS, UTI'S, past renal failure d/t dehydration, migraine, osteoporosis, 1 rib fx,2 spinal fx-wore a brace.diverticulits,gastritis History of Any Multi-Drug Resistant Organisms: None Reported Past Surgical History: Cholecystectomy Additional Past Surgical History / Comment(s): colonoscopies, egd's Past Anesthesia/Blood Transfusion Reactions: No Reported Reaction Additional Past Anesthesia/Blood Transfusion Reaction / Comm: has had 13 blood transfusion-no reaction Past Psychological History: No Psychological Hx Reported Additional Psychological History / Comment(s): pt recently moved here from [place],lives with her parents. home has 1 porch step, 1 step into house and upsatirs has 15 steps.no outside services and walks on own. no medical equipmetn.parents take her to appt. unable to work d/t chronic med problems. Smoking Status: Never smoker Past Alcohol Use History: None Reported Past Drug Use History: None Reported - Past Family History Father Family Medical History: Myocardial Infarction (ID) Additional Family Medical History / Comment(s): biological father had hx of drug abuse Mother Family Medical History: Hyperlipidemia Medications and Allergies Home Medications Medication Instructions Recorded Confirmed Type Alendronate Sodium [Fosamax] 70 mg PO MO 06/07/16 08/27/16 History Morphine Sulfate ER [Ms Contin] 30 mg PO Q8H 06/07/16 08/27/16 History SUMAtriptan SUCCINATE [Imitrex] 100 mg PO DAILY PRN 06/07/16 08/27/16 History Adalimumab [Humira Pen] 40 mg SQ Q14D 07/10/16 08/27/16 History Lipase/Protease/Amylase [Thor Ambrocio 3 cap PO AC-TID 07/10/16 08/27/16 History 24,000 Units Capsule] predniSONE 20 mg PO DAILY 07/10/16 08/27/16 History Omeprazole 20 mg PO BID 08/05/16 08/27/16 History Ondansetron [Zofran ODT] 8 mg PO Q8HR PRN 08/18/16 08/27/16 History Allergies Allergy/AdvReac Type Severity Reaction Status Date / Time metoclopramide [From Reglan] Allergy Intermediate Unknown Verified 08/27/16 08: 41 Physical Exam Vitals: Vital Signs Temp Pulse Resp BP Pulse Ox 08/29/16 13:51 97.6 F 66 16 101/76 95 08/29/16 07:00 97.9 F 66 16 111/65 100 08/29/16 04:00 96.9 F L 69 16 95/59 98 08/28/16 20:00 97.6 F 74 16 104/55 93 L Intake and Output 08/29/16 08/29/16 08/29/16 06:59 14:59 22:59 Intake Total 360 Balance 360 Intake: Oral 360 Other: # Voids General appearance: alert, in no apparent distress Head exam: atraumatic, normocephalic, normal inspection Neck exam: normal inspection, full ROM. no tenderness, meningismus, lymphadenopathy Respiratory exam: normal lung sounds bilaterally. no respiratory distress, wheezes, rales, rhonchi, stridor Cardiovascular Exam: regular rate, normal rhythm, normal heart sounds. no systolic murmur, diastolic murmur, rubs, gallop, clicks GI/Abdominal exam: soft, mild tenderness (diffuse), normal bowel sounds. no distention, guarding, rebound, rigidity Back exam: no CVA tenderness (R), CVA tenderness (L) Neurological exam: alert, oriented X3, CN II-XII intact Skin exam: warm, dry, intact, normal color. no rash Results CBC & Chem 7: 08/27/16 09:11 08/27/16 09:11 Assessment and Plan Plan: The patient is a 41-year-old female with multiple medical problems. Exacerbation of Crohn's disease is a possibility especially since she has been off her biologic therapy for several weeks, however, pain issues and pain management long-term is an important factor in her illness. Restarting humira is important while she is on a tapering course of steroids. I suggest a consultation with the pain management team in this hospital for suggestions that could tie things over until she establishes with an outpatient pain management team. She will be following with us as outpatient regarding her Crohn's disease and with rheumatology as well and I will be working with her insurance to approve her humira and to maintain her pancreas enzyme replacement therapy. I will discuss with you and follow do with interest.
[2016-08-29] MEDS: predniSONE 20 MG TAB PO SCH (20:01)
[2016-08-30] MEDS: MORPHINE SULFATE ER 30 MG TABLET PO SCH (02:07)
[2016-08-30] MEDS: LIPASE 5,000/PROTEASE 17,000/AMYLASE 27,0000 PO SCH ×2 (06:44→11:17)
[2016-08-30] MEDS: PANTOPRAZOLE 40 MG TABLET PO SCH (06:44)
[2016-08-30] MEDS ORDERED: MORPHINE SULFATE IR 15 MG TABLET PO PRN (07:35)
--- NOTE | 2016-08-30 07:35 | P.CONS ---
History of Present Illness - Chief Complaint Chronic abdominal pain - History of Present Illness I had the op to see patient for physiatric consultation with regard to chronic abdominal pain. The patient reports that she is from [place] and was treated with MS ER 30 3 times a day with MS IR 15 2-3 times per day for breakthrough. She is located to the [place] area to be with sister and parents on an alternating basis. She is admitted at this time with chronic abdominal pain, chronic pancreatitis. She also reports diffuse arthritic pain. Previous functional history, as elicited from patient: 41-year-old right-handed white female who is and alternates between sisters home and parents home. They are 1 and 2 story home respectively. Sister and parents perform cooking, laundry, driving. Patient independent with sitdown shower and gait without device. Regular doctors Dr. Dobbins. Family history of CA in father. Review of Systems Review of systems: ENT: Denies sneezes or discharge. Eyes: Denies discharge or photophobia. Cardiac: Denies chest pain or palpitation. Pulmonary: Denies cough or shortness of breath. Breast: Denies discharge or lumps. Gastrointestinal: Chronic abdominal pain. Genitourinary: Denies discharge or frequency. Musculoskeletal: Chronic multiple joints pain. Neurologic: Denies motor or sensory change. Endocrine: Denies shakes or sweats. Oncology: Denies cancers. Dermatologic: Denies rash, itching, pruritus. ALLERGY/immunology: Denies sneezes, rashes. Past Medical History Past Medical History: Eye Disorder, GERD/Reflux, GI Bleed, Osteoarthritis (OA), Rheumatoid Arthritis (RA) Additional Past Medical History / Comment(s): pancreatitis, Crohn's disease since age 16 pt stated her normal is loose to water stools and( occ maybe even a bit of blood) more than 3 /day,ulcers, been a lot of steroids "bone and skin necrosis", GAYLE CATARACTS, UTI'S, past renal failure d/t dehydration, migraine, osteoporosis, 1 rib fx,2 spinal fx-wore a brace.diverticulits,gastritis History of Any Multi-Drug Resistant Organisms: None Reported Past Surgical History: Cholecystectomy Additional Past Surgical History / Comment(s): colonoscopies, egd's Past Anesthesia/Blood Transfusion Reactions: No Reported Reaction Additional Past Anesthesia/Blood Transfusion Reaction / Comm: has had 13 blood transfusion-no reaction Past Psychological History: No Psychological Hx Reported Additional Psychological History / Comment(s): pt recently moved here from [place],lives with her parents. home has 1 porch step, 1 step into house and upsatirs has 15 steps.no outside services and walks on own. no medical equipmetn.parents take her to appt. unable to work d/t chronic med problems. Smoking Status: Never smoker Past Alcohol Use History: None Reported Past Drug Use History: None Reported - Past Family History Father Family Medical History: Myocardial Infarction (CA) Additional Family Medical History / Comment(s): biological father had hx of drug abuse Mother Family Medical History: Hyperlipidemia Medications and Allergies Home Medications Medication Instructions Recorded Confirmed Type Alendronate Sodium [Fosamax] 70 mg PO MO 06/07/16 08/27/16 History Morphine Sulfate ER [Ms Contin] 30 mg PO Q8H 06/07/16 08/27/16 History SUMAtriptan SUCCINATE [Imitrex] 100 mg PO DAILY PRN 06/07/16 08/27/16 History Adalimumab [Humira Pen] 40 mg SQ Q14D 07/10/16 08/27/16 History Lipase/Protease/Amylase [Creon Dr 3 cap PO AC-TID 07/10/16 08/27/16 History 24,000 Units Capsule] predniSONE 20 mg PO DAILY 07/10/16 08/27/16 History Omeprazole 20 mg PO BID 08/05/16 08/27/16 History Ondansetron [Zofran ODT] 8 mg PO Q8HR PRN 08/18/16 08/27/16 History Allergies Allergy/AdvReac Type Severity Reaction Status Date / Time metoclopramide [From Reglan] Allergy Intermediate Unknown Verified 08/27/16 08: 41 Physical Exam Vitals: Vital Signs Temp Pulse Resp BP Pulse Ox 08/30/16 00:58 97.5 F L 52 L 16 88/54 100 08/29/16 20:07 97.4 F L 55 L 16 98/56 100 08/29/16 13:51 97.6 F 66 16 101/76 95 Intake and Output 08/29/16 08/30/16 08/30/16 22:59 06:59 14:59 Other: Voiding Method Toilet # Voids 1 3 Skin: Good color, texture, turgor. General: Medium build and comfortable appearance. Head: Normocephalic, atraumatic. Eyes: Symmetric. Pupils equal round. Ears: Symmetric. Hearing within normal limits. Mouth: Clear. Neck: Supple. Carotid without bruit. Cardiac: Regular rate and rhythm. Lungs: Clear anteriorly and posteriorly. Abdomen: Soft active, slightly tender. Extremities: Normal tone. Neurological: Mental status: Alert, cooperative, pleasant. Cranial nerves: Symmetric facial tone and trapezius. Motor: Normal strength and isolation all 4 limbs. Sensation: Intact throughout. DTRs: Symmetric and equal throughout. Mobility: Independent in room. Results CBC & Chem 7: 08/27/16 09:11 08/27/16 09:11 Assessment and Plan (1) Chronic abdominal pain Status: Acute Plan: Impression: 1. Chronic abdominal pain. 2. Chronic pancreatitis. 3. Crohn's disease. 4. Probably osteoarthritis. Comments and plan: I have discussed patient's previous regimen and we have discussed settled on a regimen of MS ER 30 twice a day with MSIR 15 twice a day breakthrough, instead of the current [place]. This was discussed with patient's nurse as well. Prescriptions written for discharge. Would defer further outpatient management to [facility], Dr. Dobbins.
[2016-08-30] MEDS: ENOXAPARIN 40 MG/0.4 ML SYRINGE SQ SCH (07:53)
[2016-08-30] MEDS: predniSONE 20 MG TAB PO SCH (07:55)
[2016-08-30] MEDS ORDERED: MORPHINE SULFATE ER 30 MG TABLET PO SCH (09:00)
[2016-08-30 09:57] VITALS: BP 104/65; PULSE 55; TEMP 97.4
--- NOTE | 2016-08-30 10:05 | PN ---
DATE OF SERVICE: 08/29/2016 PRESENTING COMPLAINT: Abdominal pain. INTERVAL HISTORY: This is a patient with Crohn's disease who has got uncontrolled pain. Today, I saw the patient earlier today. By that time in the afternoon, patient has not been seen by Dr. Nagy. This was about 2:20 in the afternoon. I did call the answering service and Dr. Nagy called me back so I can discuss the care with him. I came back to see the patient later in the evening. Patient has been tolerating a diet, doing much better, walking up and down the hallway. Diarrhea has greatly resolved. Review of systems done for constitutional, cardiovascular, GI, pulmonary; relevant findings as above. Current medications are reviewed. Patient has not been taking her prednisone, does not want to take it. On examination, temperature 97.4, pulse 55, respiration 16, blood pressure 98/56, pulse ox 100% on room air. GENERAL APPEARANCE: Sitting up, not in distress, comfortable. EYES: Pupils equal. Conjunctivae normal. NECK: JVD not raised. Mass not palpable. Respiratory effort normal. Lungs are clear. CARDIOVASCULAR: First and second sounds normal. No edema. ABDOMEN: Soft, epigastric tenderness. No guarding or rigidity. PSYCHIATRY: Alert and oriented x3. Mood and affect is normal. INVESTIGATIONS: No blood work from today. ASSESSMENT: 1. Acute exacerbation of Crohn's disease, clinically greatly improved. Patient not been taking steroids. Diarrhea has resolved. 2. Chronic rheumatoid arthritis. 3. Chronic pancreatitis, present on admission. 4. Moderate protein calorie malnutrition, decreased muscle mass, decreased oral intake. 5. Chronic pain management. PLAN: Did put a consult in for Dr. Armando for pain management. Talked to the patient. Will stop the IV morphine in the morning. Will see what Dr. Armando has to offer. Dr. Nagy's consult noted.
--- NOTE | 2016-09-01 08:20 | DS ---
DATE OF ADMISSION: 08/27/2016 DATE OF DISCHARGE: 08/30/2016 FINAL DIAGNOSES: 1. Acute exacerbation of Crohn disease, present on admission. 2. Chronic rheumatoid arthritis. 3. Chronic pancreatitis, present on admission. 4. Moderate protein calorie malnutrition from decreased oral intake. 5. Chronic pain management. HOSPITAL COURSE: This patient presented with diarrhea, exacerbation of Crohn disease, given IV Solu-Medrol. Patient's diarrhea resolved. Patient is up and about in the hallway. Actually tolerating a diet before she left. Dr. Armando saw the patient for pain management and finalize her pain medications. CONSULTATIONS: Dr. Armando from pain management and Dr. Nagy from GI. On exam, lungs are clear. CARDIOVASCULAR: First and second seconds are normal. ABDOMEN: Soft, mild tenderness. DISCHARGE MEDICATIONS: 1. Fosamax 70 mg p.o. on Tuesday. 2. Imitrex 100 mg p.o. daily p.r.n. 3. Humira 40 mg subcutaneously q.14 days. 4. Creon 24,000, three capsules p.o. a.c. t.i.d. 5. Omeprazole 20 mg p.o. b.i.d. 6. Zofran 8 mg p.o. q.8 p.r.n. 7. Bentyl 20 mg p.o. t.i.d. 8. Compazine 5 mg p.o. q.8. 9. MS Contin 30 mg p.o. b.i.d. 10. Morphine sulfate IR 15 mg p.o. b.i.d. p.r.n. 11. Prednisone 20 mg a day. Follow up with Dr. Nagy on 09/07/16; Dr. Dobbins in one week; Dr. Kyree Armando in 4 weeks. DIET: Soft bland
== END 2016-08-30 14:12 | disposition home or self-care (01) | DRG 386 ==
LOC: EC 08:13 → OBSVTOIN 13:28 → 6PED 13:28 → 3SUR 08-28 18:23
PROVIDERS: ADMIT Hospitalist; ATTEND Hospitalist
DX: K50.10 Crohn's disease of large intestine without complications (principal); E44.0 Moderate protein-calorie malnutrition; F32.1 Major depressive disorder, single episode, moderate; K86.1 Other chronic pancreatitis; Z68.1 Body mass index [BMI] 19.9 or less, adult; K50.00 Crohn's disease of small intestine without complications; K21.9 Gastro-esophageal reflux disease without esophagitis; M06.9 Rheumatoid arthritis, unspecified; M81.0 Age-related osteoporosis without current pathological fracture; G89.29 Other chronic pain; K29.70 Gastritis, unspecified, without bleeding; R68.89 Other general symptoms and signs; R19.7 Diarrhea, unspecified; M62.50 Muscle wasting and atrophy, not elsewhere classified, unspecified site; M54.9 Dorsalgia, unspecified; M19.90 Unspecified osteoarthritis, unspecified site; G43.909 Migraine, unspecified, not intractable, without status migrainosus; M25.559 Pain in unspecified hip; Z88.8 Allergy status to other drugs, medicaments and biological substances; Z87.440 Personal history of urinary (tract) infections; Z87.11 Personal history of peptic ulcer disease; Z87.19 Personal history of other diseases of the digestive system; Z87.448 Personal history of other diseases of urinary system; Z87.81 Personal history of (healed) traumatic fracture; Z56.0 Unemployment, unspecified; Z82.49 Family history of ischemic heart disease and other diseases of the circulatory system; Z59.8 Other problems related to housing and economic circumstances; Z90.49 Acquired absence of other specified parts of digestive tract; Z81.3 Family history of other psychoactive substance abuse and dependence; Z98.42 Cataract extraction status, left eye; Z98.41 Cataract extraction status, right eye; Z71.3 Dietary counseling and surveillance; Z79.83 Long term (current) use of bisphosphonates; Z79.891 Long term (current) use of opiate analgesic; Z79.52 Long term (current) use of systemic steroids; Z79.899 Other long term (current) drug therapy
CPT/HCPCS: 36415; 80053; 81001; 82150; 83690; 85025; 96361; 96374; 96375; 99284

== ENCOUNTER 2016-09-16 09:56 | Day surgery (SDC) | payer OTHER ==
[2016-09-14 11:02] VITALS: BMI 17.2
[~2016-09-16 09:56] MED LIST: LACTATED RINGERS 1,000 ML IV SCH
[2016-09-16 10:18] VITALS: RESP 16; TEMP 97.9
[2016-09-16] MEDS ORDERED: LIDOCAINE 1% 20 ML VIAL (10MG/ML) FOR IV START INTRADERMA ONE (10:38)
[2016-09-16] MEDS ORDERED: PROPOFOL 10 MG/ML 20 ML VIAL IV ONE (10:44)
[2016-09-16] MEDS ORDERED: LIDOCAINE 1% INJ 10MG/ML (20 ML MDV) ONE (10:44)
[2016-09-16 10:45] LABS: Glucose,Whole Blood 84 mg/dL (75-99)
--- NOTE | 2016-09-16 11:44 | P.PCN ---
Date of Procedure: 09/16/16 Procedure(s) Performed: Procedures: 1. Esophagogastroduodenoscopy and biopsy. 2. Colonoscopy and biopsy. Preoperative diagnosis: Abdominal pain and diarrhea patient has history of Crohn 's disease and chronic pancreatitis. Postoperative diagnosis: 1. Mild antral gastritis. 2. Evidence of chronic colitis with numerous pseudopolyps in the colon, but no mucosal inflammation seen in the colon or terminal ileum. 3. Biopsies obtained from the duodenum, antrum, esophagus, terminal ileum and random colon. Preparation: HalfLytely prep. Sedation: Was provided by anesthesia. Brief clinical history: The patient is a 41-year-old female who was diagnosed with Crohn's disease at age 16 and was diagnosed with chronic pancreatitis 7 years ago likely related to Imuran and sulfa-based drugs and she also has rheumatoid arthritis since age 17. The patient has been on humira for the last 2-1/2 years which was interrupted after she moved back to [place] at the end of April 2016. The patient has daily pain, nausea and vomiting and frequent loose/mushy bowel movements up to 10 times per day. The patient is still awaiting restarting her humira. The patient was hospitalized earlier this month for a few days because of pain and diarrhea and was discharged on a tapering dose of prednisone. I scheduled this evaluation to assess for the activity of her Crohn's and to exclude other etiology of her symptoms. Procedure: With the patient on her left lateral decubitus position and after informed consent and adequate sedation, I passed the Olympus-GIF 160 video upper endoscope through the cricopharyngeus down the esophagus. The esophagus appeared healthy with no obvious erosions, ulcers, strictures or Hui's esophagus. The endoscope was then passed into the stomach which was insufflated with air and inspected in detail including the retroflex view in the cardia. There was some mottling and erythema in the antrum but no ulcers or erosions. Pyloric channel, duodenal bulb, post bulbar area and descending duodenum appeared within normal limits. Because of her symptoms, I obtained biopsies from the duodenum, antrum and esophagus then the endoscope was withdrawn and I proceeded with the colonoscopy. Perianal area did not show any fissures or fistulas. There were no masses felt on digital rectal examination. The Olympus CFQ 160L video colonoscope was then inserted in the rectum in the usual fashion and advanced to the cecum. I intubated the ileocecal valve and examined the terminal ileum. Terminal ileum appeared healthy. The colon had numerous pseudopolyps scattered along its length to the cecum, with spared rectum. The mucosa appeared healthy with no endoscopic evidence of active disease. I obtained biopsies from the terminal ileum and randomly from the colon, then I retroflexed endoscope in the rectum before the endoscope was withdrawn. The patient tolerated the procedure well. Plan: The patient was reassured. Will await pathology results and make further plans. I will keep you updated on her progress.
[2016-09-16 11:58] VITALS: BP 119/84; PULSE 63
== END 2016-09-16 12:17 | disposition home or self-care (01) ==
LOC: ORWHC2ENDO 09:56
DX: K50.90 Crohn's disease, unspecified, without complications (principal); K29.50 Unspecified chronic gastritis without bleeding; K21.0 Gastro-esophageal reflux disease with esophagitis; R19.7 Diarrhea, unspecified; M06.9 Rheumatoid arthritis, unspecified; K86.1 Other chronic pancreatitis; R10.9 Unspecified abdominal pain; G43.909 Migraine, unspecified, not intractable, without status migrainosus; Z79.891 Long term (current) use of opiate analgesic; Z79.52 Long term (current) use of systemic steroids; Z79.899 Other long term (current) drug therapy; Z88.8 Allergy status to other drugs, medicaments and biological substances
CPT/HCPCS: 81025; 88305; 88342; 45380; 43239; J2001; J2704

== ENCOUNTER 2016-09-30 08:05 | Emergency (ER) | payer OTHER ==
[2016-09-30] MEDS ORDERED: ONDANSETRON 4 MG/2 ML VIAL IVP STA (08:32)
[2016-09-30] MEDS ORDERED: HYDROmorphone 1 MG/ML 1 ML SYRINGE IVP STA (08:32)
[2016-09-30] MEDS ORDERED: SODIUM CHLORIDE 0.9% 1,000 ML IV STA ×2 (08:32)
--- NOTE | 2016-09-30 09:19 | ED ---
General Adult HPI - General Chief complaint: Abdominal Pain Stated complaint: pain,nausea Time Seen by Provider: 09/30/16 08:25 Source: patient, RN notes reviewed, old records reviewed Mode of arrival: ambulatory Limitations: no limitations - History of Present Illness Initial comments: Patient is a 41-year-old female who presents emergency room today with a chief complaint of possible pancreatitis. She does admit to history of chronic pancreatitis due to medications that she used for Crohn's disease. Patient admits that symptoms started late last night. She states it's located in the upper abdomen. Does admit to some pain that wraps around to her back. States feels similar to pain palpitations that she's had in the past. Admits to nausea. Denies any other complaints. Patient denies any recent fever, chills, shortness of breath, chest pain, numbness or tingling, dysuria or hematuria, constipation or diarrhea, headaches or visual changes, or any other complaints. - Related Data Home Medications Medication Instructions Recorded Confirmed Alendronate Sodium [Fosamax] 70 mg PO MO 06/07/16 09/30/16 SUMAtriptan SUCCINATE [Imitrex] 100 mg PO DAILY PRN 06/07/16 09/30/16 Omeprazole 20 mg PO BID 08/05/16 09/30/16 Ondansetron [Zofran ODT] 8 mg PO TID PRN 08/18/16 09/30/16 Lipase/Protease/Amylase [Thor Ambrocio 3 each PO AC-TID 09/14/16 09/30/16 24,000 Units Capsule] Loratadine 10 mg PO DAILY 09/14/16 09/30/16 Montelukast Sodium [Singulair] 10 mg PO HS 09/14/16 09/30/16 Morphine Sulfate ER [Ms Contin] 30 mg PO BID 09/14/16 09/30/16 Morphine Sulfate Ir [MSIR] 15 mg PO BID PRN 09/14/16 09/30/16 Allergies Allergy/AdvReac Type Severity Reaction Status Date / Time metoclopramide [From Reglan] AdvReac LEFT Verified 09/30/16 08:43 ARM/EYE TWITCH Review of Systems ROS Statement: Those systems with pertinent positive or pertinent negative responses have been documented in the HPI. ROS Other: All systems not noted in ROS Statement are negative. Past Medical History Past Medical History: Eye Disorder, GERD/Reflux, Osteoarthritis (OA), Rheumatoid Arthritis (RA) Additional Past Medical History / Comment(s): chronic pancreatitis, Crohn's disease, blood in stool, diverticulosis, hx ulcers, frequent UTI'S, hx blood clots in arm, hx anemia, hx kidney failure from dehydration 12 yrs ago, History of Any Multi-Drug Resistant Organisms: None Reported Past Surgical History: Cholecystectomy Additional Past Surgical History / Comment(s): colonsocopy, EGD, Past Anesthesia/Blood Transfusion Reactions: No Reported Reaction Additional Past Anesthesia/Blood Transfusion Reaction / Comment(s): has had 13 blood transfusion-no reaction Past Psychological History: No Psychological Hx Reported Additional Psychological History / Comment(s): . Smoking Status: Never smoker Past Alcohol Use History: None Reported Past Drug Use History: Marijuana Additional Drug Use History / Comment(s): not in several months - Past Family History Father Family Medical History: Myocardial Infarction ([place]) Additional Family Medical History / Comment(s): biological father had hx of drug abuse Mother Family Medical History: No Reported History General Exam - General Exam Comments Initial Comments: General: The patient is awake and alert, in no distress, and does not appear acutely ill. Eye: Pupils are equal, round and reactive to light, extra-ocular movements are intact. No nystagmus. There is normal conjunctiva bilaterally. No signs of icterus. Ears, nose, mouth and throat: There are moist mucous membranes and no oral lesions. Neck: The neck is supple, there is no tenderness or JVD. Cardiovascular: There is a regular rate and rhythm. No murmur, rub or gallop is appreciated. Respiratory: Lungs are clear to auscultation, respirations are non-labored, breath sounds are equal. No wheezes, stridor, rales, or rhonchi. Gastrointestinal: &. Normal bowel sounds. Soft on palpation. Patient does have mild tenderness in both the left and right upper quadrants. Mild tenderness epigastric. No rebound tenderness or guarding. No CVA tenderness. Musculoskeletal: Normal ROM, no tenderness. Strength 5/5. Sensation intact. Pulses equal bilaterally 2+. Neurological: A&O x 3. CN II-XII intact, There are no obvious motor or sensory deficits. Coordination appears grossly intact. Speech is normal. Skin: Skin is warm and dry and no rashes or lesions are noted. Psychiatric: Cooperative, appropriate mood & affect, normal judgment. Limitations: no limitations Course Vital Signs 09/30/16 09/30/16 08:43 10:03 Temperature 97.8 F Pulse Rate 89 74 Respiratory 18 18 Rate Blood Pressure 110/65 107/58 O2 Sat by Pulse 97 93 L Oximetry Medical Decision Making - Medical Decision Making Patient reexamined at this time shows no signs of distress. Resting comfortably stretch. Patient's amylase lipase within normal limits today. Patient Will Be Discharged Home. She Does Admit That She Ran Out Of Her Pain Medication. She States She Takes Morphine at Home. Patient Does Admit That She 's Proceeded Pain Management Next Week. Patient Advised That She'll Need Follow -Up for Further Pain Medications. Advised Used Tylenol Motrin for Pain As Needed. Advised to Return If Any Symptoms Increase or Worsen. - Lab Data Result diagrams: 09/30/16 09:05 09/30/16 09:05 Lab Results 09/30/16 09/30/16 09/30/16 Range/Units 08:25 08:25 09:05 WBC (3.8-10.6) k/uL RBC (3.80-5.40) m/uL Hgb (11.4-16.0) gm/dL Hct (34.0-46.0) % MCV (80.0-100.0) fL MCH (25.0-35.0) pg MCHC (31.0-37.0) g/dL RDW (11.5-15.5) % Plt Count (150-450) k/uL Neutrophils % % Lymphocytes % % Monocytes % % Eosinophils % % Basophils % % Neutrophils # (1.3-7.7) k/uL Lymphocytes # (1.0-4.8) k/uL Monocytes # (0-1.0) k/uL Eosinophils # (0-0.7) k/uL Basophils # (0-0.2) k/uL Sodium 145 (137-145) mmol/L Potassium 4.3 (3.5-5.1) mmol/L Chloride 107 (98-107) mmol/L Carbon Dioxide 29 (22-30) mmol/L Anion Gap 9 mmol/L BUN 12 (7-17) mg/dL Creatinine 0.73 (0.52-1.04) mg/dL Est GFR (MDRD) Af Amer >60 (>60 ml/min/1.73 sqM) Est GFR (MDRD) Non-Af >60 (>60 ml/min/1.73 sqM) Glucose 91 (74-99) mg/dL Calcium 10.0 (8.4-10.2) mg/dL Total Bilirubin 0.5 (0.2-1.3) mg/dL AST 22 (14-36) U/L ALT 22 (9-52) U/L Alkaline Phosphatase 69 (38-126) U/L Total Protein 7.7 (6.3-8.2) g/dL Albumin 4.7 (3.5-5.0) g/dL Amylase 83 (30-110) U/L Lipase 338 H (23-300) U/L Urine Color Yellow Urine Appearance Clear (Clear) Urine pH 6.5 (5.0-8.0) Ur Specific [place] 1.010 (1.001-1.035) Urine Protein Negative (Negative) Urine Glucose (UA) Negative (Negative) Urine Ketones Negative (Negative) Urine Blood Negative (Negative) Urine Nitrite Negative (Negative) Urine Bilirubin Negative (Negative) Urine Urobilinogen <2.0 (<2.0) mg/dL Ur Leukocyte Esterase Negative (Negative) Urine HCG, Qual Not Detected (Not Detectd) 09/30/16 Range/Units 09:05 WBC 11.4 H (3.8-10.6) k/uL RBC 4.95 (3.80-5.40) m/uL Hgb 16.1 H (11.4-16.0) gm/dL Hct 47.7 H (34.0-46.0) % MCV 96.3 (80.0-100.0) fL MCH 32.4 (25.0-35.0) pg MCHC 33.7 (31.0-37.0) g/dL RDW 13.5 (11.5-15.5) % Plt Count 225 (150-450) k/uL Neutrophils % 83 % Lymphocytes % 9 % Monocytes % 6 % Eosinophils % 1 % Basophils % 0 % Neutrophils # 9.5 H (1.3-7.7) k/uL Lymphocytes # 1.0 (1.0-4.8) k/uL Monocytes # 0.6 (0-1.0) k/uL Eosinophils # 0.1 (0-0.7) k/uL Basophils # 0.0 (0-0.2) k/uL Sodium (137-145) mmol/L Potassium (3.5-5.1) mmol/L Chloride (98-107) mmol/L Carbon Dioxide (22-30) mmol/L Anion Gap mmol/L BUN (7-17) mg/dL Creatinine (0.52-1.04) mg/dL Est GFR (MDRD) Af Amer (>60 ml/min/1.73 sqM) Est GFR (MDRD) Non-Af (>60 ml/min/1.73 sqM) Glucose (74-99) mg/dL Calcium (8.4-10.2) mg/dL Total Bilirubin (0.2-1.3) mg/dL AST (14-36) U/L ALT (9-52) U/L Alkaline Phosphatase (38-126) U/L Total Protein (6.3-8.2) g/dL Albumin (3.5-5.0) g/dL Amylase (30-110) U/L Lipase (23-300) U/L Urine Color Urine Appearance (Clear) Urine pH (5.0-8.0) Ur Specific [place] (1.001-1.035) Urine Protein (Negative) Urine Glucose (UA) (Negative) Urine Ketones (Negative) Urine Blood (Negative) Urine Nitrite (Negative) Urine Bilirubin (Negative) Urine Urobilinogen (<2.0) mg/dL Ur Leukocyte Esterase (Negative) Urine HCG, Qual (Not Detectd) Disposition Clinical Impression: Abdominal pain Disposition: HOME SELF-CARE Condition: Good Instructions: Abdominal Pain (ED) Additional Instructions: Please use medication as discussed. Please follow-up with family doctor in the next 2 days of symptoms have not improved. Please return to emergency room if the symptoms increase or worsen or for any other concerns. Time of Disposition: 10:38
[2016-09-30 09:26] LABS: Basophils % (A) 0 %; CHCM 32.3; Eosinophils # (A) 0.1 k/uL (0-0.7); Eosinophils % (A) 1 %; HCT 47.7 % (34.0-46.0); HDW 2.26; HGB 16.1 gm/dL (11.4-16.0); Luc # (Auto) 0.15; Luc % (Auto) 1; Lymphocytes % (A) 9 %; MCH 32.4 pg (25.0-35.0); MCHC 33.7 g/dL (31.0-37.0); MCV 96.3 fL (80.0-100.0); Mean Platelet Volume 6.3; Monocytes # (A) 0.6 k/uL (0-1.0); Monocytes % (A) 6 %; Neutrophils # (A) 9.5 k/uL (1.3-7.7); Neutrophils % (A) 83 %; RBC 4.95 m/uL (3.80-5.40); RDW 13.5 % (11.5-15.5); WBC 11.4 k/uL (3.8-10.6); WBC (Perox) 11.79
[2016-09-30 09:26] LABS: Appearance,Urine Clear (Clear); Bilirubin,Urine Negative (Negative); Glucose,Urine (UA) Negative (Negative); Ketones,Urine Negative (Negative); Leukocyte Esterase,Urine Negative (Negative); Nitrite,Urine Negative (Negative); PH, Urine 6.5 (5.0-8.0); Protein,Urine Negative (Negative); UA Billing (MACRO vs. MICRO) CHEM; Urobilinogen,Urine <2.0 mg/dL (<2.0)
[2016-09-30 09:46] LABS: ALT 22 U/L (9-52); AST 22 U/L (14-36); Alkaline Phosphatase 69 U/L (38-126); Amylase 83 U/L (30-110); Anion Gap 9 mmol/L; Blood Urea Nitrogen 12 mg/dL (7-17); Carbon Dioxide 29 mmol/L (22-30); Chloride 107 mmol/L (98-107); Glucose 91 mg/dL (74-99); Non-African American GFR(MDRD) >60 (>60 ml/min/1.73 sqM); Potassium 4.3 mmol/L (3.5-5.1); Sodium 145 mmol/L (137-145); Total Bilirubin 0.5 mg/dL (0.2-1.3); Total Protein 7.7 g/dL (6.3-8.2)
--- NOTE | 2016-09-30 09:46 | XR ---
EXAMINATION TYPE: XR KUB DATE OF EXAM: 09/30/2016 9:42 AM COMPARISON: 08/18/2016 HISTORY: Abdominal pain center of the abdomen with nausea and vomiting TECHNIQUE: One view abdominal series FINDINGS: The osseous structures are intact. The bowel gas pattern is nonspecific. Surgical clips in the gallb ladder fossa. Calcification left pelvis is stable. 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 Findings ar e stable. IMPRESSION: 1. Nonspecific abdomen.
[2016-09-30 11:56] VITALS: BP 104/66; PULSE 83; RESP 16; TEMP 98
== END 2016-09-30 11:56 | disposition home or self-care (01) ==
LOC: EC 08:05
DX: R10.11 Right upper quadrant pain (principal); R10.12 Left upper quadrant pain; R10.13 Epigastric pain; R11.0 Nausea; K21.9 Gastro-esophageal reflux disease without esophagitis; M19.90 Unspecified osteoarthritis, unspecified site; Z88.8 Allergy status to other drugs, medicaments and biological substances; Z90.49 Acquired absence of other specified parts of digestive tract; Z87.19 Personal history of other diseases of the digestive system; Z79.899 Other long term (current) drug therapy
CPT/HCPCS: 99284; 96374; 96375; 96361; 36415; 80053; 82150; 83690; 85025; 81003; 81025; 74000; J2405; J1170

== ENCOUNTER 2016-12-25 08:35 | Emergency (ER) | payer OTHER ==
[2016-12-25] MEDS ORDERED: SODIUM CHLORIDE 0.9% 1,000 ML IV STA ×2 (08:55)
[2016-12-25] MEDS ORDERED: HYDROmorphone 1 MG/ML 1 ML SYRINGE IVP STA (08:55)
[2016-12-25] MEDS ORDERED: ONDANSETRON 4 MG/2 ML VIAL IVP STA (08:55)
--- NOTE | 2016-12-25 09:04 | ED ---
General Adult HPI - General Chief complaint: Abdominal Pain Stated complaint: VOMITING, DIARRHEA, Hx OF CROHNS AND PANCREATITIS Time Seen by Provider: 12/25/16 08:50 Source: patient, RN notes reviewed Mode of arrival: ambulatory Limitations: no limitations - History of Present Illness Initial comments: Patient 41-year-old female sitting a past medical history for pancreatic tenderness, Crohn's disease, who presents emergency room today with chief complaint of increased pain in epigastric left upper quadrant over the last 2 days. Patient does admit to having increased nausea vomiting difficult time keeping anything down at home. Patient does admit that she has been having increased pain tried her nausea medication at home with little relief still having nausea vomiting. Patient does admit that symptoms are consistent with pink toes that she's had in the past. Patient denies any other complaints or associated symptoms at this time. Patient denies any recent fever, chills, shortness of breath, chest pain, back pain, numbness or tingling, dysuria or hematuria, constipation or diarrhea, headaches or visual changes, or any other complaints. - Related Data Home Medications Medication Instructions Recorded Confirmed Alendronate Sodium [Fosamax] 70 mg PO MO 06/07/16 09/30/16 SUMAtriptan SUCCINATE [Imitrex] 100 mg PO DAILY PRN 06/07/16 09/30/16 Omeprazole 20 mg PO BID 08/05/16 09/30/16 Ondansetron [Zofran ODT] 8 mg PO TID PRN 08/18/16 09/30/16 Lipase/Protease/Amylase [Thor Ambrocio 3 each PO AC-TID 09/14/16 09/30/16 24,000 Units Capsule] Loratadine 10 mg PO DAILY 09/14/16 09/30/16 Montelukast Sodium [Singulair] 10 mg PO HS 09/14/16 09/30/16 Morphine Sulfate ER [Ms Contin] 30 mg PO BID 09/14/16 09/30/16 Morphine Sulfate Ir [MSIR] 15 mg PO BID PRN 09/14/16 09/30/16 Allergies Allergy/AdvReac Type Severity Reaction Status Date / Time metoclopramide [From Reglan] AdvReac LEFT Verified 12/25/16 08:44 ARM/EYE TWITCH Review of Systems ROS Statement: Those systems with pertinent positive or pertinent negative responses have been documented in the HPI. ROS Other: All systems not noted in ROS Statement are negative. Past Medical History Past Medical History: Eye Disorder, GERD/Reflux, Neurologic Disorder, Osteoarthritis (OA), Rheumatoid Arthritis (RA) Additional Past Medical History / Comment(s): chronic pancreatitis, Crohn's disease, blood in stool, diverticulosis, hx ulcers, frequent UTI'S, hx blood clots in arm, hx anemia, hx kidney failure from dehydration 12 yrs ago, neuropathy History of Any Multi-Drug Resistant Organisms: None Reported Past Surgical History: Cholecystectomy Additional Past Surgical History / Comment(s): colonsocopy, EGD, Past Anesthesia/Blood Transfusion Reactions: No Reported Reaction Additional Past Anesthesia/Blood Transfusion Reaction / Comment(s): has had 13 blood transfusion-no reaction Past Psychological History: No Psychological Hx Reported Smoking Status: Never smoker Past Alcohol Use History: None Reported Past Drug Use History: Marijuana - Past Family History Father Family Medical History: Myocardial Infarction ([place]) Additional Family Medical History / Comment(s): biological father had hx of drug abuse Mother Family Medical History: No Reported History General Exam - General Exam Comments Initial Comments: General: The patient is awake and alert, in no distress, and does not appear acutely ill. Eye: Pupils are equal, round and reactive to light, extra-ocular movements are intact. No nystagmus. There is normal conjunctiva bilaterally. No signs of icterus. Ears, nose, mouth and throat: There are moist mucous membranes and no oral lesions. Neck: The neck is supple, there is no tenderness or JVD. Cardiovascular: There is a regular rate and rhythm. No murmur, rub or gallop is appreciated. Respiratory: Lungs are clear to auscultation, respirations are non-labored, breath sounds are equal. No wheezes, stridor, rales, or rhonchi. Gastrointestinal: Normal appearance. Normal bowel sounds. Soft on palpation. Patient does have mild tenderness epigastric and left upper quadrant. No rebound tenderness. No guarding. No CVA tenderness. Musculoskeletal: Normal ROM, no tenderness. Strength 5/5. Sensation intact. Pulses equal bilaterally 2+. Neurological: A&O x 3. CN II-XII intact, There are no obvious motor or sensory deficits. Coordination appears grossly intact. Speech is normal. Skin: Skin is warm and dry and no rashes or lesions are noted. Psychiatric: Cooperative, appropriate mood & affect, normal judgment. Limitations: no limitations Course Vital Signs 12/25/16 12/25/16 08:41 09:20 Temperature 98.1 F Pulse Rate 116 H 90 Respiratory 18 20 Rate Blood Pressure 104/75 98/61 O2 Sat by Pulse 99 97 Oximetry Medical Decision Making - Medical Decision Making Patient reexamined at this time shows no signs of distress resting comfortably in the stretcher. Amylase lipase negative. Remaining labs been reviewed. Patient discharged home advised follow-up family doctor return if any symptoms increase or worsen or for any other concerns. - Lab Data Result diagrams: 12/25/16 09:13 12/25/16 09:13 Lab Results 12/25/16 12/25/16 12/25/16 Range/Units 08:20 08:20 09:13 WBC (3.8-10.6) k/uL RBC (3.80-5.40) m/uL Hgb (11.4-16.0) gm/dL Hct (34.0-46.0) % MCV (80.0-100.0) fL MCH (25.0-35.0) pg MCHC (31.0-37.0) g/dL RDW (11.5-15.5) % Plt Count (150-450) k/uL Neutrophils % % Lymphocytes % % Monocytes % % Eosinophils % % Basophils % % Neutrophils # (1.3-7.7) k/uL Lymphocytes # (1.0-4.8) k/uL Monocytes # (0-1.0) k/uL Eosinophils # (0-0.7) k/uL Basophils # (0-0.2) k/uL Sodium 144 (137-145) mmol/L Potassium 4.1 (3.5-5.1) mmol/L Chloride 106 (98-107) mmol/L Carbon Dioxide 24 (22-30) mmol/L Anion Gap 14 mmol/L BUN 11 (7-17) mg/dL Creatinine 0.82 (0.52-1.04) mg/dL Est GFR (MDRD) Af Amer >60 (>60 ml/min/1.73 sqM) Est GFR (MDRD) Non-Af >60 (>60 ml/min/1.73 sqM) Glucose 113 H (74-99) mg/dL Calcium 10.4 H (8.4-10.2) mg/dL Total Bilirubin 0.9 (0.2-1.3) mg/dL AST 21 (14-36) U/L ALT 22 (9-52) U/L Alkaline Phosphatase 78 (38-126) U/L Total Protein 8.0 (6.3-8.2) g/dL Albumin 5.0 (3.5-5.0) g/dL Amylase 52 (30-110) U/L Lipase 135 (23-300) U/L Urine Color Yellow Urine Appearance Cloudy H (Clear) Urine pH 5.5 (5.0-8.0) Ur Specific [place] 1.021 (1.001-1.035) Urine Protein 1+ H (Negative) Urine Glucose (UA) Negative (Negative) Urine Ketones Trace H (Negative) Urine Blood Negative (Negative) Urine Nitrite Negative (Negative) Urine Bilirubin Negative (Negative) Urine Urobilinogen 4.0 (<2.0) mg/dL Ur Leukocyte Esterase Negative (Negative) Urine RBC 3 (0-5) /hpf Urine WBC 2 (0-5) /hpf Ur Squamous Epith Cells 2 (0-4) /hpf Urine Mucus Many H (None) /hpf Urine HCG, Qual Not Detected (Not Detectd) 12/25/16 Range/Units 09:13 WBC 6.5 (3.8-10.6) k/uL RBC 5.10 (3.80-5.40) m/uL Hgb 16.2 H (11.4-16.0) gm/dL Hct 48.7 H (34.0-46.0) % MCV 95.5 (80.0-100.0) fL MCH 31.8 (25.0-35.0) pg MCHC 33.3 (31.0-37.0) g/dL RDW 12.4 (11.5-15.5) % Plt Count 248 (150-450) k/uL Neutrophils % 70 % Lymphocytes % 21 % Monocytes % 6 % Eosinophils % 1 % Basophils % 0 % Neutrophils # 4.6 (1.3-7.7) k/uL Lymphocytes # 1.4 (1.0-4.8) k/uL Monocytes # 0.4 (0-1.0) k/uL Eosinophils # 0.1 (0-0.7) k/uL Basophils # 0.0 (0-0.2) k/uL Sodium (137-145) mmol/L Potassium (3.5-5.1) mmol/L Chloride (98-107) mmol/L Carbon Dioxide (22-30) mmol/L Anion Gap mmol/L BUN (7-17) mg/dL Creatinine (0.52-1.04) mg/dL Est GFR (MDRD) Af Amer (>60 ml/min/1.73 sqM) Est GFR (MDRD) Non-Af (>60 ml/min/1.73 sqM) Glucose (74-99) mg/dL Calcium (8.4-10.2) mg/dL Total Bilirubin (0.2-1.3) mg/dL AST (14-36) U/L ALT (9-52) U/L Alkaline Phosphatase (38-126) U/L Total Protein (6.3-8.2) g/dL Albumin (3.5-5.0) g/dL Amylase (30-110) U/L Lipase (23-300) U/L Urine Color Urine Appearance (Clear) Urine pH (5.0-8.0) Ur Specific [place] (1.001-1.035) Urine Protein (Negative) Urine Glucose (UA) (Negative) Urine Ketones (Negative) Urine Blood (Negative) Urine Nitrite (Negative) Urine Bilirubin (Negative) Urine Urobilinogen (<2.0) mg/dL Ur Leukocyte Esterase (Negative) Urine RBC (0-5) /hpf Urine WBC (0-5) /hpf Ur Squamous Epith Cells (0-4) /hpf Urine Mucus (None) /hpf Urine HCG, Qual (Not Detectd) Disposition Clinical Impression: Abdominal pain Disposition: HOME SELF-CARE Condition: Good Instructions: Abdominal Pain (ED) Additional Instructions: Please use medication as discussed. Please follow-up with gastrointestinal/ family doctor in the next 2 days of symptoms have not improved. Please return to emergency room if the symptoms increase or worsen or for any other concerns. Referrals: Derek Dobbins MD [Primary Care Provider] - 1-2 days Time of Disposition: 10:04
[2016-12-25 09:21] VITALS: RESP 20
[2016-12-25 09:35] LABS: Appearance,Urine Cloudy (Clear); Bilirubin,Urine Negative (Negative); Glucose,Urine (UA) Negative (Negative); Ketones,Urine Trace (Negative); Leukocyte Esterase,Urine Negative (Negative); Mucus,Urine Many /hpf; Nitrite,Urine Negative (Negative); PH, Urine 5.5 (5.0-8.0); Particle Count 8005; Protein,Urine 1+ (Negative); RBC,Urine 3 /hpf (0-5); Specific Gravity,Urine 1.021 (1.001-1.035); Squamous Epithelial Cell,Urine 2 /hpf (0-4); UA Billing (MACRO vs. MICRO) MICRO; WBC,Urine 2 /hpf (0-5)
[2016-12-25 09:38] LABS: Basophils % (A) 0 %; CHCM 32.6; Eosinophils # (A) 0.1 k/uL (0-0.7); Eosinophils % (A) 1 %; HCT 48.7 % (34.0-46.0); HDW 2.11; HGB 16.2 gm/dL (11.4-16.0); Luc % (Auto) 2; Lymphocytes # (A) 1.4 k/uL (1.0-4.8); Lymphocytes % (A) 21 %; MCH 31.8 pg (25.0-35.0); MCHC 33.3 g/dL (31.0-37.0); MCV 95.5 fL (80.0-100.0); Mean Platelet Volume 6.8; Monocytes # (A) 0.4 k/uL (0-1.0); Monocytes % (A) 6 %; Neutrophils # (A) 4.6 k/uL (1.3-7.7); Neutrophils % (A) 70 %; RDW 12.4 % (11.5-15.5); WBC 6.5 k/uL (3.8-10.6); WBC (Perox) 6.37
[2016-12-25 09:48] LABS: ALT 22 U/L (9-52); AST 21 U/L (14-36); Alkaline Phosphatase 78 U/L (38-126); Amylase 52 U/L (30-110); Anion Gap 14 mmol/L; Blood Urea Nitrogen 11 mg/dL (7-17); Calcium 10.4 mg/dL (8.4-10.2); Carbon Dioxide 24 mmol/L (22-30); Chloride 106 mmol/L (98-107); Glucose 113 mg/dL (74-99); Non-African American GFR(MDRD) >60 (>60 ml/min/1.73 sqM); Potassium 4.1 mmol/L (3.5-5.1); Sodium 144 mmol/L (137-145); Total Bilirubin 0.9 mg/dL (0.2-1.3)
[2016-12-25 10:11] VITALS: BP 100/59; PULSE 78; TEMP 99.3
== END 2016-12-25 10:17 | disposition home or self-care (01) ==
LOC: EC 08:35
DX: R10.13 Epigastric pain (principal); R10.12 Left upper quadrant pain; R11.10 Vomiting, unspecified; R19.7 Diarrhea, unspecified; K21.9 Gastro-esophageal reflux disease without esophagitis; Z87.19 Personal history of other diseases of the digestive system; Z90.49 Acquired absence of other specified parts of digestive tract; Z88.8 Allergy status to other drugs, medicaments and biological substances; Z79.891 Long term (current) use of opiate analgesic; Z79.899 Other long term (current) drug therapy
CPT/HCPCS: 99284; 96374; 96375; 96361; 36415; 80053; 82150; 83690; 85025; 81001; 81025; J2405; J1170

== ENCOUNTER 2016-12-25 14:04 | Observation (INO) | payer OTHER ==
[2016-12-25] MEDS ORDERED: SODIUM CHLORIDE 0.9% 1,000 ML IV STA (14:22)
[2016-12-25] MEDS ORDERED: PANTOPRAZOLE 40 MG/10 ML VIAL IVP STA (14:22)
[2016-12-25] MEDS ORDERED: ONDANSETRON 4 MG/2 ML VIAL IVP STA ×2 (14:22→16:26)
[2016-12-25] MEDS ORDERED: RX INFO: IV CONTRAST WAS GIVEN 1 EACH MISC MISCELLANE PRN (14:23)
--- NOTE | 2016-12-25 14:46 | ED ---
General Adult HPI - General Chief complaint: Abdominal Pain Stated complaint: abdominal pain Time Seen by Provider: 12/25/16 14:17 Source: patient, RN notes reviewed Mode of arrival: ambulatory Limitations: no limitations - History of Present Illness Initial comments: Patient 41-year-old female with significant past medical history for pancreatic tenderness, Crohn's disease, who presents emergency room today with a chief complaint of increased abdominal pain. Patient does admit that she's been expressing pain in the left upper quadrant and lower quadrant. Does admit to increased nausea vomiting over the last 2 days. Patient was seen here in the emergency room earlier today discharged home. She states she went home had 3 more episodes of vomiting. Patient does admit that she's had a few episodes of loose stool. Denies any signs of blood in the emesis or stool. Denies any other complaints or associated symptoms. Patient denies any recent fever, chills , shortness of breath, chest pain, back pain, numbness or tingling, dysuria or hematuria, constipation or diarrhea, headaches or visual changes, or any other complaints. - Related Data Home Medications Medication Instructions Recorded Confirmed Alendronate Sodium [Fosamax] 70 mg PO MO 06/07/16 12/25/16 SUMAtriptan SUCCINATE [Imitrex] 100 mg PO DAILY PRN 06/07/16 12/25/16 Omeprazole 20 mg PO BID 08/05/16 12/25/16 Ondansetron [Zofran ODT] 8 mg PO TID PRN 08/18/16 12/25/16 Lipase/Protease/Amylase [Thor Ambrocio 3 cap PO AC-TID 09/14/16 12/25/16 24,000 Units Capsule] Loratadine 10 mg PO DAILY 09/14/16 12/25/16 Montelukast Sodium [Singulair] 10 mg PO HS 09/14/16 12/25/16 Morphine Sulfate ER [Ms Contin] 30 mg PO BID 09/14/16 12/25/16 Morphine Sulfate Ir [MSIR] 15 mg PO TID PRN 09/14/16 12/25/16 Adalimumab [Humira Pen] 40 mg SQ [id number] 12/25/16 12/25/16 Topiramate [Topamax] 25 mg PO HS 12/25/16 12/25/16 Allergies Allergy/AdvReac Type Severity Reaction Status Date / Time metoclopramide [From Reglan] AdvReac LEFT Verified 12/25/16 14:36 ARM/EYE TWITCH Review of Systems ROS Statement: Those systems with pertinent positive or pertinent negative responses have been documented in the HPI. ROS Other: All systems not noted in ROS Statement are negative. Past Medical History Past Medical History: Eye Disorder, GERD/Reflux, Neurologic Disorder, Osteoarthritis (OA), Rheumatoid Arthritis (RA) Additional Past Medical History / Comment(s): chronic pancreatitis, Crohn's disease, blood in stool, diverticulosis, hx ulcers, frequent UTI'S, hx blood clots in arm, hx anemia, hx kidney failure from dehydration 12 yrs ago, neuropathy History of Any Multi-Drug Resistant Organisms: None Reported Past Surgical History: Cholecystectomy Additional Past Surgical History / Comment(s): colonsocopy, EGD, Past Anesthesia/Blood Transfusion Reactions: No Reported Reaction Additional Past Anesthesia/Blood Transfusion Reaction / Comment(s): has had 13 blood transfusion-no reaction Past Psychological History: No Psychological Hx Reported Smoking Status: Never smoker Past Alcohol Use History: None Reported Past Drug Use History: Marijuana - Past Family History Father Family Medical History: Myocardial Infarction ([place]) Additional Family Medical History / Comment(s): biological father had hx of drug abuse Mother Family Medical History: No Reported History General Exam - General Exam Comments Initial Comments: General: The patient is awake and alert, in no distress, and does not appear acutely ill. Eye: Pupils are equal, round and reactive to light, extra-ocular movements are intact. No nystagmus. There is normal conjunctiva bilaterally. No signs of icterus. Ears, nose, mouth and throat: There are moist mucous membranes and no oral lesions. Neck: The neck is supple, there is no tenderness or JVD. Cardiovascular: There is a regular rate and rhythm. No murmur, rub or gallop is appreciated. Respiratory: Lungs are clear to auscultation, respirations are non-labored, breath sounds are equal. No wheezes, stridor, rales, or rhonchi. Gastrointestinal: Normal appearance. Normal bowel sounds. Abdomen soft on palpation. Patient does have tenderness in the epigastric, left upper quadrant and mild tenderness left lower quadrant. No rebound tenderness. No guarding. No CVA tenderness. Musculoskeletal: Normal ROM, no tenderness. Strength 5/5. Sensation intact. Pulses equal bilaterally 2+. Neurological: A&O x 3. CN II-XII intact, There are no obvious motor or sensory deficits. Coordination appears grossly intact. Speech is normal. Skin: Skin is warm and dry and no rashes or lesions are noted. Psychiatric: Cooperative, appropriate mood & affect, normal judgment. Limitations: no limitations Course Vital Signs 12/25/16 12/25/16 12/25/16 14:13 14:56 16:34 Temperature 99.0 F 98.9 F Pulse Rate 90 78 81 Respiratory 20 18 18 Rate Blood Pressure 135/89 113/71 106/55 O2 Sat by Pulse 99 98 100 Oximetry Medical Decision Making - Medical Decision Making Reexamined at this time shows no signs of distressand some pain in the epigastric and left upper quadrant. Patient's CT does show evidence for enteritis. Shows no evidence for Crohn's disease at this time. Patient's labs been reviewed and negative amylase lipase. Patient still experiencing pain discomfort not feeling comfortable to go home still having some nausea vomiting. Will be admitted for intractable abdominal pain. Case was discussed with nurse practitioner Cassandra who will admit for Dr. Healy with consult to GI Dr. Cabrera - Lab Data Result diagrams: 12/25/16 15:00 12/25/16 15:00 Lab Results 12/25/16 12/25/16 12/25/16 Range/Units 15:00 15:00 15:13 WBC 6.8 (3.8-10.6) k/uL RBC 4.56 (3.80-5.40) m/uL Hgb 14.7 (11.4-16.0) gm/dL Hct 43.1 (34.0-46.0) % MCV 94.5 (80.0-100.0) fL MCH 32.2 (25.0-35.0) pg MCHC 34.1 (31.0-37.0) g/dL RDW 12.7 (11.5-15.5) % Plt Count 203 (150-450) k/uL Neutrophils % 60 % Lymphocytes % 31 % Monocytes % 6 % Eosinophils % 1 % Basophils % 0 % Neutrophils # 4.1 (1.3-7.7) k/uL Lymphocytes # 2.1 (1.0-4.8) k/uL Monocytes # 0.4 (0-1.0) k/uL Eosinophils # 0.0 (0-0.7) k/uL Basophils # 0.0 (0-0.2) k/uL Sodium 141 (137-145) mmol/L Potassium 4.0 (3.5-5.1) mmol/L Chloride 108 H (98-107) mmol/L Carbon Dioxide 22 (22-30) mmol/L Anion Gap 11 mmol/L BUN 10 (7-17) mg/dL Creatinine 0.80 (0.52-1.04) mg/dL Est GFR (MDRD) Af Amer >60 (>60 ml/min/1.73 sqM) Est GFR (MDRD) Non-Af >60 (>60 ml/min/1.73 sqM) Glucose 99 (74-99) mg/dL Calcium 9.7 (8.4-10.2) mg/dL Total Bilirubin 0.6 (0.2-1.3) mg/dL AST 19 (14-36) U/L ALT 26 (9-52) U/L Alkaline Phosphatase 66 (38-126) U/L Total Protein 6.6 (6.3-8.2) g/dL Albumin 4.1 (3.5-5.0) g/dL Amylase 53 (30-110) U/L Lipase 202 (23-300) U/L Urine Color Yellow Urine Appearance Cloudy H (Clear) Urine pH 5.5 (5.0-8.0) Ur Specific [place] 1.017 (1.001-1.035) Urine Protein Trace H (Negative) Urine Glucose (UA) Negative (Negative) Urine Ketones Negative (Negative) Urine Blood Negative (Negative) Urine Nitrite Negative (Negative) Urine Bilirubin Negative (Negative) Urine Urobilinogen 3.0 (<2.0) mg/dL Ur Leukocyte Esterase Trace H (Negative) Urine RBC 1 (0-5) /hpf Urine WBC 4 (0-5) /hpf Ur Squamous Epith Cells 3 (0-4) /hpf Urine Bacteria Rare H (None) /hpf Urine Mucus Few H (None) /hpf Disposition Clinical Impression: Intractable abdominal pain, Nausea & vomiting Disposition: ADMITTED IP TO THIS [facility] Condition: Good Instructions: Abdominal Pain (ED) Referrals: Derek Dobbins MD [Primary Care Provider] - 1-2 days Time of Disposition: 17:44
[2016-12-25 15:11] LABS: Basophils % (A) 0 %; CH 31.4; CHCM 33.4; Eosinophils % (A) 1 %; HCT 43.1 % (34.0-46.0); HDW 2.09; HGB 14.7 gm/dL (11.4-16.0); Luc # (Auto) 0.14; Luc % (Auto) 2; Lymphocytes # (A) 2.1 k/uL (1.0-4.8); Lymphocytes % (A) 31 %; MCH 32.2 pg (25.0-35.0); MCHC 34.1 g/dL (31.0-37.0); MCV 94.5 fL (80.0-100.0); Mean Platelet Volume 6.8; Monocytes # (A) 0.4 k/uL (0-1.0); Monocytes % (A) 6 %; Neutrophils # (A) 4.1 k/uL (1.3-7.7); Neutrophils % (A) 60 %; RBC 4.56 m/uL (3.80-5.40); RDW 12.7 % (11.5-15.5); WBC 6.8 k/uL (3.8-10.6); WBC (Perox) 6.65
[2016-12-25 15:24] LABS: Appearance,Urine Cloudy (Clear); Bacteria,Urine Rare /hpf; Bilirubin,Urine Negative (Negative); Glucose,Urine (UA) Negative (Negative); Ketones,Urine Negative (Negative); Leukocyte Esterase,Urine Trace (Negative); Mucus,Urine Few /hpf; Nitrite,Urine Negative (Negative); PH, Urine 5.5 (5.0-8.0); Particle Count 4276; Protein,Urine Trace (Negative); RBC,Urine 1 /hpf (0-5); Specific Gravity,Urine 1.017 (1.001-1.035); Squamous Epithelial Cell,Urine 3 /hpf (0-4); UA Billing (MACRO vs. MICRO) MICRO; WBC,Urine 4 /hpf (0-5)
[2016-12-25 15:26] LABS: ALT 26 U/L (9-52); AST 19 U/L (14-36); Alkaline Phosphatase 66 U/L (38-126); Amylase 53 U/L (30-110); Anion Gap 11 mmol/L; Blood Urea Nitrogen 10 mg/dL (7-17); Calcium 9.7 mg/dL (8.4-10.2); Carbon Dioxide 22 mmol/L (22-30); Chloride 108 mmol/L (98-107); Glucose 99 mg/dL (74-99); Non-African American GFR(MDRD) >60 (>60 ml/min/1.73 sqM); Sodium 141 mmol/L (137-145); Total Bilirubin 0.6 mg/dL (0.2-1.3); Total Protein 6.6 g/dL (6.3-8.2)
--- NOTE | 2016-12-25 15:53 | XR ---
EXAMINATION TYPE: XR KUB DATE OF EXAM: 12/25/2016 CLINICAL DATA: 41-year-old female with generalized abdominal pain, PHH COMPARISON: 09/30/2016 FINDINGS: Lung bases are clear. No evidence for free intraperitoneal air. Scattered small air-fluid levels within the colon. No abnormal dilated small bowel. Cholecystectomy c lips are present. No significant stool burden. IMPRESSION: Scattered air-fluid levels within the colon could represent a mild generalized ileus or enteritis. No evidence for bowel obstruction or free air.
--- NOTE | 2016-12-25 16:07 | CT ---
EXAMINATION TYPE: CT abdomen pelvis w con DATE OF EXAM: 12/25/2016 COMPARISON: 06/08/2016 HISTORY: 41-year-old female Left upper and lower quadrant pain x 3 days with nausea and vomiting. His tory of chronic pancreatitis and Crohn's disease. TECHNIQUE: Contiguous axial scanning of the abdomen and pelvis following administration of 100 ml Omn ipaque 300 IV contrast. Delayed images through the kidneys and coronal/sagittal reconstructions perf ormed. CT DLP: 332.30 mGycm Automated exposure control for dose reduction was used. FINDINGS: The heart is normal size without pericardial effusion. Band of atelectasis at the posterior left base . Similar mild intrahepatic biliary ductal prominence status post cholecystectomy. No focal liver lesio n. Portal venous system is patent. Adrenal glands, spleen are within normal limits. Scattered hypodense lesions within the kidney are st able suggestive of cysts. Symmetric uptake and excretion of contrast from both kidneys. Stable mild prominence to the main pancreatic duct probably sequela of prior pancreatitis. Portions of normal-appearing appendix are seen. No dilated small bowel, free fluid, or free air. Scattered liquid stool within the colon and some flu id within small bowel loops angle in the pelvis. No clear bowel wall thickening is identified. No obvious mesenteric or retroperitoneal lymphadenopathy. Bladder is urine distended. Uterus and right ovary are visualized. Left ovary not clearly seen. Trace cul-de-sac free fluid likely physiologic. There are prominent left periuterine varices and engorgeme nt of the left gonadal vein. Bones: Mild degenerative changes at the hips. No osseous destructive process. IMPRESSION: 1. CT SHOWS ONLY MILD SCATTERED LIQUID STOOL IN THE COLON. A mild enteritis is possible. No esdras sma ll bowel wall thickening to suggest active Crohn's disease. 2. Prominent left parauterine varices and engorgement of the left gonadal vein. Findings can be seen in the setting of pelvic congestion syndrome. Clinically correlate. 3. Stable mild intrahepatic biliary ductal dilatation and mild prominence to the main pancreatic duct . Probably chronic in this patient.
[2016-12-25] MEDS ORDERED: SODIUM CHLORIDE 0.9% 500 ML IV STA (16:26)
[2016-12-25] MEDS ORDERED: MAG HYDROX/AL HYDROX/SIMETH 30 ML, HYOSCYAMINE ELIXIR 10 ML, CIMETIDINE HCL 300 MG, LID... PO STA ×4 (16:58)
[2016-12-25] MEDS ORDERED: ACETAMINOPHEN TAB 325 MG TAB PO PRN (17:44)
[2016-12-25] MEDS ORDERED: NALOXONE 0.4 MG/ML 1 ML VIAL IV PRN (17:44)
[2016-12-25] MEDS ORDERED: SODIUM CHLORIDE 0.9% 1,000 ML IV ONE (17:44)
[2016-12-25] MEDS: HYDROmorphone 1 MG/ML 1 ML SYRINGE IV PRN ×2 (18:19→21:38)
[2016-12-25] MEDS ORDERED: MORPHINE SULFATE IR 15 MG TABLET PO PRN (22:20)
[2016-12-25] MEDS ORDERED: SUMAtriptan SUCCINATE 50 MG TAB PO PRN (22:20)
--- NOTE | 2016-12-25 22:23 | P.HPIM ---
<Hiwot Leos Duke - Last Filed: 12/25/16 22:11> History of Present Illness H&P Date: 12/25/16 Chief Complaint: nausea and vomiting This is a 41-year-old female who is a patient of Dr. Dobbins and Dr. Nagy presented to the emergency department with nausea ,vomiting and abdominal pain increasing for the last 2 days. Patient states she has had many multiple episodes of vomiting, as well as multiple episodes of diarrhea. States difficult to determine if there is blood present. States she has been unable to keep any food or liquids down. Patient saw Dr. Jones in the office last week, and was told that she had severe symptoms that she should be seen by the emergency department hence she has been admitted today. Review of Systems REVIEW OF SYSTEMS: GEN.: [None] EYES: [None] HEENT: [None] NECK: [None] RESPIRATORY: [None] CARDIOVASCULAR: [None] GASTROINTESTINAL: [Abdominal pain, nausea, vomiting, frequent stools] GENITOURINARY: [None] MUSCULOSKELETAL: [Joint pain] LYMPHATICS: [None] HEMATOLOGICAL: [None] PSYCHIATRY: [None] NEUROLOGICAL: [None] Past Medical History Past Medical History: Eye Disorder, GERD/Reflux, Neurologic Disorder, Osteoarthritis (OA), Rheumatoid Arthritis (RA) Additional Past Medical History / Comment(s): chronic pancreatitis, Crohn's disease, blood in stool, diverticulosis, hx ulcers, frequent UTI'S, hx blood clots in arm, hx anemia, hx kidney failure from dehydration 12 yrs ago, neuropathy History of Any Multi-Drug Resistant Organisms: None Reported Past Surgical History: Cholecystectomy Additional Past Surgical History / Comment(s): colonsocopy, EGD, Past Anesthesia/Blood Transfusion Reactions: No Reported Reaction Additional Past Anesthesia/Blood Transfusion Reaction / Comment(s): has had 13 blood transfusion-no reaction Past Psychological History: No Psychological Hx Reported Smoking Status: Never smoker Past Alcohol Use History: None Reported Past Drug Use History: Marijuana - Past Family History Father Family Medical History: Myocardial Infarction ([place]) Additional Family Medical History / Comment(s): biological father had hx of drug abuse Mother Family Medical History: No Reported History Medications and Allergies Home Medications Medication Instructions Recorded Confirmed Type Alendronate Sodium [Fosamax] 70 mg PO MO 06/07/16 12/26/16 History SUMAtriptan SUCCINATE [Imitrex] 100 mg PO DAILY PRN 06/07/16 12/26/16 History Omeprazole 20 mg PO BID 08/05/16 12/26/16 History Ondansetron [Zofran ODT] 8 mg PO TID PRN 08/18/16 12/26/16 History Lipase/Protease/Amylase [Thor Ambrocio 3 cap PO AC-TID 09/14/16 12/26/16 History 24,000 Units Capsule] Loratadine 10 mg PO DAILY 09/14/16 12/26/16 History Montelukast Sodium [Singulair] 10 mg PO HS 09/14/16 12/26/16 History Morphine Sulfate ER [Ms Contin] 30 mg PO BID 09/14/16 12/26/16 History Morphine Sulfate Ir [MSIR] 15 mg PO TID PRN 09/14/16 12/26/16 History Adalimumab [Humira Pen] 40 mg SQ [id number] 12/25/16 12/26/16 History Topiramate [Topamax] 25 mg PO HS 12/25/16 12/26/16 History Allergies Allergy/AdvReac Type Severity Reaction Status Date / Time metoclopramide [From Reglan] AdvReac LEFT Verified 12/25/16 14:36 ARM/EYE TWITCH Physical Exam Vitals: Vital Signs Temp Pulse Pulse Resp BP BP Pulse Ox 12/25/16 19:13 98 F 53 L 18 110/62 98 12/25/16 18:00 70 20 120/75 96 12/25/16 16:34 98.9 F 81 18 106/55 100 12/25/16 14:56 78 18 113/71 98 12/25/16 14:13 99.0 F 90 20 135/89 99 Intake and Output 12/25/16 12/25/16 12/25/16 06:59 14:59 22:59 Other: Weight 45.359 kg 48.4 kg Patient Weight 12/26/16 06:59 Weight 48.4 kg VITAL SIGNS: [Reviewed. BMI noted] GENERAL: Thin built, sitting up, anxious appearing]. EYES: [Pupils equal. Conjunctiva thelma]l. HEENT: [External appearance of nose and ears normal, oral cavity grossly normal] . NECK: [JVD not raised; masses not palpable]. HEART: [First and second heart sounds are normal; no edema]. LUNGS:[ Respiratory rate normal; clear to auscultation]. ABDOMEN: [Soft, tender to left lower middle and right quadrants, liver spleen not palpable, no masses palpable]. LYMPHATICS: [No lymph nodes palpable in the axilla and neck]. PSYCH: [Alert and oriented x3; mood and affect anxious appearing]l. NEUROLOGICAL: [Cranial nerves grossly intact; no facial asymmetry, power and sensation grossly intact]. Results CBC & Chem 7: 12/25/16 15:00 12/25/16 15:00 Labs: Abnormal Lab Results - Last 24 Hours (Table) 12/25/16 12/25/16 Range/Units 15:00 15:13 Chloride 108 H (98-107) mmol/L Urine Appearance Cloudy H (Clear) Urine Protein Trace H (Negative) Ur Leukocyte Esterase Trace H (Negative) Urine Bacteria Rare H (None) /hpf Urine Mucus Few H (None) /hpf Abdominal x-ray: report reviewed (No evidence of bowel obstruction or free air) CT scan - abdomen: report reviewed (Shows only mild scattered liquid stool in the colon, enteritis possible) Assessment and Plan Plan: ASSESSMENT: -Possible acute exacerbation of Crohn's disease with multiple stools associated nausea and vomiting -Chronic rheumatoid arthritis. -Chronic pancreatitis, present on admission -Moderate protein calorie malnutrition with decreased muscle mass, decreased oral intake, decreased albumin PLAN: -Home medications evaluated and started. Consult placed with Dr. Jones of GI, patient maintain nothing by mouth status with a few ice chips. We'll continue IV fluids and monitor patient's status closely. <Fabian Healy - Last Filed: 12/26/16 11:53> Physical Exam Vitals: Vital Signs Temp Pulse Pulse Resp BP BP Pulse Ox 12/26/16 08:00 97.9 F 50 L 14 88/54 97 12/26/16 04:00 53 L 18 12/26/16 00:00 53 L 18 12/25/16 20:00 18 12/25/16 19:13 98 F 53 L 18 110/62 98 12/25/16 18:00 70 20 120/75 96 12/25/16 16:34 98.9 F 81 18 106/55 100 12/25/16 14:56 78 18 113/71 98 12/25/16 14:13 99.0 F 90 20 135/89 99 Intake and Output 12/25/16 12/26/16 12/26/16 22:59 06:59 14:59 Other: Voiding Method Toilet Toilet Toilet # Voids 2 Weight 48.4 kg 48.4 kg Results CBC & Chem 7: 12/26/16 06:36 12/26/16 06:36 Labs: Abnormal Lab Results - Last 24 Hours (Table) 12/25/16 12/25/16 12/26/16 Range/Units 15:00 15:13 06:36 Chloride 108 H 115 H (98-107) mmol/L Carbon Dioxide 21 L (22-30) mmol/L Total Protein 5.3 L (6.3-8.2) g/dL Albumin 3.0 L (3.5-5.0) g/dL Urine Appearance Cloudy H (Clear) Urine Protein Trace H (Negative) Ur Leukocyte Esterase Trace H (Negative) Urine Bacteria Rare H (None) /hpf Urine Mucus Few H (None) /hpf Assessment and Plan Plan: Attending note. Date of service-12/25/2016 This patient was seen and examined by me today. I reviewed the note of my nurse practitioner, Ms. Leos. Discussed with her, additional findings as below. This is a patient known to be his chronic stable medical conditions include chronic rheumatoid arthritis, chronic pancreatitis, moderate protein calorie malnutrition, and chronic pain. Patient follows with Dr. Jones from GI. Patient presents with increasing loose stools increasing abdominal pain, some nausea vomiting.. On examination: Afebrile, Abdomen mild diffuse tenderness, no guarding or rigidity. Investigations: White count 6.8, hemoglobin 14.7, potassium 4, renal function normal Computed tomography scan abdomen-nonspecific Assessment and plan: Assessment: -Possible acute exacerbation of Crohn's disease manifesting as multiple stools increasing abdominal pain though patient's afebrile, with a normal white count Chronic rheumatoid arthritis Chronic pancreatitis Moderate protein calorie malnutrition Chronic pain Plan: Patient be put on ice chips, GI was consulted. Care was discussed with the patient, questions answered
[2016-12-26] MEDS: HYDROmorphone 1 MG/ML 1 ML SYRINGE IV PRN ×5 (01:13→19:44)
[2016-12-26 01:24] VITALS: BMI 18.3
[2016-12-26 07:08] LABS: Basophils % (A) 0 %; CH 30.6; CHCM 31.9; Eosinophils # (A) 0.1 k/uL (0-0.7); Eosinophils % (A) 2 %; HCT 39.2 % (34.0-46.0); HDW 2.13; Luc % (Auto) 2; Lymphocytes # (A) 1.6 k/uL (1.0-4.8); Lymphocytes % (A) 35 %; MCHC 33.3 g/dL (31.0-37.0); MCV 96.2 fL (80.0-100.0); Mean Platelet Volume 6.9; Monocytes # (A) 0.3 k/uL (0-1.0); Monocytes % (A) 6 %; Neutrophils # (A) 2.6 k/uL (1.3-7.7); Neutrophils % (A) 56 %; RBC 4.07 m/uL (3.80-5.40); RDW 12.5 % (11.5-15.5); WBC 4.6 k/uL (3.8-10.6); WBC (Perox) 4.83
[2016-12-26 07:22] LABS: ALT 22 U/L (9-52); AST 16 U/L (14-36); Alkaline Phosphatase 53 U/L (38-126); Anion Gap 4 mmol/L; Blood Urea Nitrogen 8 mg/dL (7-17); Calcium 8.4 mg/dL (8.4-10.2); Carbon Dioxide 21 mmol/L (22-30); Chloride 115 mmol/L (98-107); Glucose 86 mg/dL (74-99); Non-African American GFR(MDRD) >60 (>60 ml/min/1.73 sqM); Potassium 4.1 mmol/L (3.5-5.1); Sodium 140 mmol/L (137-145); Total Bilirubin 0.8 mg/dL (0.2-1.3); Total Protein 5.3 g/dL (6.3-8.2)
[2016-12-26] MEDS: MORPHINE SULFATE ER 30 MG TABLET PO SCH ×2 (08:07→19:55)
[2016-12-26] MEDS: LIPASE 5,000/PROTEASE 17,000/AMYLASE 27,0000 PO SCH ×3 (08:08→17:45)
[2016-12-26] MEDS: LORATADINE 10 MG TAB PO SCH (08:08)
[2016-12-26] MEDS: PANTOPRAZOLE 40 MG TABLET PO SCH (08:08)
[2016-12-26] MEDS: ENOXAPARIN 40 MG/0.4 ML SYRINGE SQ SCH (08:08)
[2016-12-26] MEDS ORDERED: PANTOPRAZOLE 40 MG/10 ML VIAL IV SCH (09:00)
[2016-12-26] MEDS: ONDANSETRON 4 MG/2 ML VIAL IVP PRN ×2 (10:19→19:44)
--- NOTE | 2016-12-26 19:43 | P.PN ---
Progress Note - Text Presenting complaint-abdominal pain Interval history-patient admitted with Crohn's disease exacerbation. Still having multiple loose stools. Tolerating the clear liquid diet. Abdominal pain is still present but better. Had some nausea. Review of system is done for constitutional cardiovascular GI pulmonary musculoskeletal, relevant finding as above Current medications are reviewed that included MS Contin pancreatic enzymes On examination VITAL SIGNS: [Afebrile, 97.9, 50, 14, 80/54, 97% room air] GENERAL: Thin built, sitting up, anxious appearing]. EYES: [Pupils equal. Conjunctiva thelma]l. HEENT: [External appearance of nose and ears normal, oral cavity grossly normal] . NECK: [JVD not raised; masses not palpable]. HEART: [First and second heart sounds are normal; no edema]. LUNGS:[ Respiratory rate normal; clear to auscultation]. ABDOMEN: [Soft, tender to left lower middle and right quadrants, liver spleen not palpable, no masses palpable]. LYMPHATICS: [No lymph nodes palpable in the axilla and neck]. PSYCH: [Alert and oriented x3; mood and affect anxious appearing]l. NEUROLOGICAL: [Cranial nerves grossly intact; no facial asymmetry, power and sensation grossly intact]. Labs: White count 4.6, hemoglobin 13, potassium 4.1, renal function normal ASSESSMENT: -Possible acute exacerbation of Crohn's disease with multiple stools associated nausea and vomiting -Chronic rheumatoid arthritis. -Chronic pancreatitis, present on admission -Moderate protein calorie malnutrition with decreased muscle mass, decreased oral intake, decreased albumin Plan: Continue current medication treatment plan. Awaiting input from GI Dr. Jones. We'll add IV Solu-Medrol. Diet will be advanced to full liquid. Care was discussed with the patient, questions were answered
[2016-12-26 19:59] VITALS: RESP 16
[2016-12-26] MEDS: methylPREDNISolone SOD SUCCI 40 MG/ML 1 ML VIAL IV SCH (20:39)
[2016-12-26] MEDS ORDERED: MONTELUKAST 10 MG TAB PO SCH (21:00)
[2016-12-26] MEDS ORDERED: TOPIRAMATE 25 MG TAB PO SCH (21:00)
[2016-12-27] MEDS ORDERED: HYDROmorphone 1 MG/ML 1 ML SYRINGE ONE
[2016-12-27] MEDS ORDERED: methylPREDNISolone SOD SUCCI 40 MG/ML 1 ML VIAL ONE
[2016-12-27] MEDS: methylPREDNISolone SOD SUCCI 40 MG/ML 1 ML VIAL IV SCH ×3 (04:57→16:04)
[2016-12-27] MEDS: ONDANSETRON 4 MG/2 ML VIAL IVP PRN (05:50)
[2016-12-27] MEDS: HYDROmorphone 1 MG/ML 1 ML SYRINGE IV PRN ×3 (05:50→16:04)
[2016-12-27] MEDS: LIPASE 5,000/PROTEASE 17,000/AMYLASE 27,0000 PO SCH ×3 (10:53→18:19)
[2016-12-27] MEDS: LORATADINE 10 MG TAB PO SCH (10:54)
[2016-12-27] MEDS: ENOXAPARIN 40 MG/0.4 ML SYRINGE SQ SCH (10:54)
[2016-12-27] MEDS: PANTOPRAZOLE 40 MG TABLET PO SCH (10:55)
[2016-12-27] MEDS: MORPHINE SULFATE ER 30 MG TABLET PO SCH (11:14)
[2016-12-27 14:59] LABS: Basophils % (A) 0 %; CH 31.7; CHCM 32.6; Eosinophils % (A) 0 %; HCT 46.2 % (34.0-46.0); HDW 2.22; HGB 14.8 gm/dL (11.4-16.0); Luc # (Auto) 0.03; Luc % (Auto) 0; Lymphocytes # (A) 0.7 k/uL (1.0-4.8); Lymphocytes % (A) 7 %; MCH 31.3 pg (25.0-35.0); MCV 97.8 fL (80.0-100.0); Mean Platelet Volume 7.2; Monocytes # (A) 0.3 k/uL (0-1.0); Monocytes % (A) 3 %; Neutrophils # (A) 8.5 k/uL (1.3-7.7); Neutrophils % (A) 89 %; RBC 4.73 m/uL (3.80-5.40); RDW 12.5 % (11.5-15.5); WBC 9.5 k/uL (3.8-10.6); WBC (Perox) 9.59
[2016-12-27 15:29] VITALS: BP 99/56; PULSE 62; TEMP 98.4
--- NOTE | 2016-12-27 15:30 | P.CONS ---
History of Present Illness - Reason for Consult Consult date: 12/26/16 - History of Present Illness The patient is a 41-year-old female who was diagnosed with Crohn's disease at age 16 and was diagnosed with chronic pancreatitis 7 years ago likely related to Imuran and sulfa-based drugs and she also has rheumatoid arthritis since age 17. The patient has been on humira for the last 2-1/2 years which was interrupted after she moved back to [place] at the end of April 2016. I performed an upper endoscopy and colonoscopy in August of this year as the patient has daily pain, nausea and vomiting and frequent loose/mushy bowel movements up to 10 times per day while she was awaiting the restart of Humira. There was evidence of deep remission at that time with no evidence of active inflammation endoscopically normal by biopsy. Her humira has been restarted around 2 months ago. I have seen the patient in the office few days prior to this admission and she was doing well, although, she was still having frequent diarrheic bowel movements but she tells me that this is nothing compared to when she was sick in the past. She presented to the ER on the day of admission with a chief complaint of increased abdominal pain and nausea and vomiting of around 2 days. Patient was seen in the emergency room earlier that day and was discharged home. She states she went home had 3 more episodes of vomiting. Patient does admit that she's had a few episodes of loose stool. Denies any signs of blood in the emesis or stool. Denies any other complaints or associated symptoms. Patient denies any recent fever, chills, shortness of breath, chest pain, back pain, numbness or tingling, dysuria or hematuria, headaches or visual changes, or any other complaints. Review of Systems REVIEW OF SYSTEMS: CARDIOPULMONARY: No chest pain or shortness of breath. GENITOURINARY: No dysuria or hematuria. MUSCULOSKELETAL: Unremarkable. SKIN: Unremarkable. ENDOCRINE: Unremarkable. PSYCHIATRIC: Unremarkable. NEUROLOGY: Unremarkable. ENT: Vision unremarkable. CONSTITUTIONAL: No recent weight loss. No fever, chills, night sweats. Past Medical History Past Medical History: Eye Disorder, GERD/Reflux, Neurologic Disorder, Osteoarthritis (OA), Rheumatoid Arthritis (RA) Additional Past Medical History / Comment(s): chronic pancreatitis, Crohn's disease, blood in stool, diverticulosis, hx ulcers, frequent UTI'S, hx blood clots in arm, hx anemia, hx kidney failure from dehydration 12 yrs ago, neuropathy History of Any Multi-Drug Resistant Organisms: None Reported Past Surgical History: Cholecystectomy Additional Past Surgical History / Comment(s): colonsocopy, EGD, Past Anesthesia/Blood Transfusion Reactions: No Reported Reaction Additional Past Anesthesia/Blood Transfusion Reaction / Comm: has had 13 blood transfusion-no reaction Past Psychological History: No Psychological Hx Reported Smoking Status: Never smoker Past Alcohol Use History: None Reported Past Drug Use History: Marijuana - Past Family History Father Family Medical History: Myocardial Infarction ([place]) Additional Family Medical History / Comment(s): biological father had hx of drug abuse Mother Family Medical History: No Reported History Medications and Allergies Home Medications Medication Instructions Recorded Confirmed Type Alendronate Sodium [Fosamax] 70 mg PO MO 06/07/16 12/26/16 History SUMAtriptan SUCCINATE [Imitrex] 100 mg PO DAILY PRN 06/07/16 12/26/16 History Omeprazole 20 mg PO BID 08/05/16 12/26/16 History Ondansetron [Zofran ODT] 8 mg PO TID PRN 08/18/16 12/26/16 History Lipase/Protease/Amylase [Sammyon Dr 3 cap PO AC-TID 09/14/16 12/26/16 History 24,000 Units Capsule] Loratadine 10 mg PO DAILY 09/14/16 12/26/16 History Montelukast Sodium [Singulair] 10 mg PO HS 09/14/16 12/26/16 History Morphine Sulfate ER [Ms Contin] 30 mg PO BID 09/14/16 12/26/16 History Morphine Sulfate Ir [MSIR] 15 mg PO TID PRN 09/14/16 12/26/16 History Adalimumab [Humira Pen] 40 mg SQ [id number] 12/25/16 12/26/16 History Topiramate [Topamax] 25 mg PO HS 12/25/16 12/26/16 History Allergies Allergy/AdvReac Type Severity Reaction Status Date / Time metoclopramide [From Reglan] AdvReac LEFT Verified 12/25/16 14:36 ARM/EYE TWITCH Physical Exam Vitals: Vital Signs Temp Pulse Pulse Resp BP BP Pulse Ox 12/26/16 08:00 97.9 F 50 L 14 88/54 97 12/26/16 04:00 53 L 18 12/26/16 00:00 53 L 18 12/25/16 20:00 18 12/25/16 19:13 98 F 53 L 18 110/62 98 12/25/16 18:00 70 20 120/75 96 12/25/16 16:34 98.9 F 81 18 106/55 100 12/25/16 14:56 78 18 113/71 98 Intake and Output 12/25/16 12/26/16 12/26/16 22:59 06:59 14:59 Other: Voiding Method Toilet Toilet Toilet # Voids 2 Weight 48.4 kg 48.4 kg On physical examination, patient appears comfortable in no apparent distress. Vital signs are stable. HEENT: Unremarkable. Conjunctivae pink. Sclerae anicteric. Oral cavity no lesions. NECK: No JVD or lymph node enlargement. CHEST: Clear to auscultation. HEART: Regular rate and rhythm. ABDOMEN: Soft. Bowel sounds are positive. No organomegaly. EXTREMITIES: No pedal edema. SKIN: No rashes. NEUROLOGIC: Alert and oriented x3. No focal deficits. Results CBC & Chem 7: 12/27/16 14:33 12/26/16 06:36 Labs: Abnormal Lab Results - Last 24 Hours (Table) 12/25/16 12/25/16 12/26/16 Range/Units 15:00 15:13 06:36 Chloride 108 H 115 H (98-107) mmol/L Carbon Dioxide 21 L (22-30) mmol/L Total Protein 5.3 L (6.3-8.2) g/dL Albumin 3.0 L (3.5-5.0) g/dL Urine Appearance Cloudy H (Clear) Urine Protein Trace H (Negative) Ur Leukocyte Esterase Trace H (Negative) Urine Bacteria Rare H (None) /hpf Urine Mucus Few H (None) /hpf Assessment and Plan Plan: This 41-year-old female with multiple problems as noted above, is presenting with a picture of possible gastroenteritis superimposed on her chronic illnesses. I doubt that we are dealing with exacerbation of inflammatory bowel disease based on her endoscopies earlier this year. However, I would suggest that we evaluate her stools and order inflammatory markers so we can have as much objective information to guide our therapy. Meanwhile, I agree with your current management and supportive treatments. I will discuss with you and follow with interest.
[2016-12-27 17:01] LABS: Erythrocyte Sedimentation Rate 2 mm/hr (0-20)
[2016-12-27] MEDS ORDERED: NON-FORMULARY DRUG (Alendronate Sodium [Fosamax] 70 MG) PO SCH (22:20)
--- NOTE | 2016-12-28 17:50 | P.DS ---
Providers Date of admission: 12/25/16 17:45 Expected date of discharge: 12/27/16 Attending physician: Fabian Healy Consults: 12/25/16 17:44 Consult Physician Stat Consulting Provider: Anthony Nagy Consult Reason/Comments: Abd pain Do you want consulting provider notified?: Yes Primary care physician: Derek Dobbins [facility] Course: This is a 41-year-old female who is a patient of Dr. Dobbins and Dr. Nagy presented to the emergency department with nausea ,vomiting and abdominal pain increasing for the last 2 days. Patient states she has had many multiple episodes of vomiting, as well as multiple episodes of diarrhea. States difficult to determine if there is blood present. States she has been unable to keep any food or liquids down. Patient saw Dr. Jones in the office last week, and was told that she had severe symptoms that she should be seen by the emergency department hence she has been admitted today. Patient's diet was scaled back, patient is put on IV steroids. By the time of discharge patient. Greatly improved. Abdominal pain and gone down. Patient starting a full liquid diet comfortably. Care was discussed with the patient. Patient BY Dr. Jones to be discharged On examination: Abdomen soft decreased tenderness, no guarding or rigidity Investigations white count 9.5 Computed tomography scan of the abdomen-nonspecific findings Final: Diagnosis: - acute exacerbation of Crohn's disease manifesting as multiple stools increasing abdominal pain though patient's afebrile, with a normal white count Chronic rheumatoid arthritis Chronic pancreatitis Moderate protein calorie malnutrition Chronic pain Patient Condition at Discharge: Good Plan - Discharge Summary New Discharge Prescriptions: New predniSONE 10 mg PO DAILY #30 tab Continue Alendronate Sodium [Fosamax] 70 mg PO MO SUMAtriptan SUCCINATE [Imitrex] 100 mg PO DAILY PRN PRN Reason: Migraine Headache Omeprazole 20 mg PO BID Ondansetron [Zofran ODT] 8 mg PO TID PRN PRN Reason: Nausea Lipase/Protease/Amylase [Thor Ambrocio 24,000 Units Capsule] 3 cap PO AC-TID Loratadine 10 mg PO DAILY Montelukast Sodium [Singulair] 10 mg PO HS Morphine Sulfate ER [Ms Contin] 30 mg PO BID Morphine Sulfate Ir [MSIR] 15 mg PO TID PRN PRN Reason: Pain Adalimumab [Humira Pen] 40 mg SQ [id number] Topiramate [Topamax] 25 mg PO HS Discharge Medication List Alendronate Sodium [Fosamax] 70 mg PO MO 06/07/16 [History] SUMAtriptan SUCCINATE [Imitrex] 100 mg PO DAILY PRN 06/07/16 [History] Omeprazole 20 mg PO BID 08/05/16 [History] Ondansetron [Zofran ODT] 8 mg PO TID PRN 08/18/16 [History] Lipase/Protease/Amylase [Thor Ambrocio 24,000 Units Capsule] 3 cap PO AC-TID [History] Loratadine 10 mg PO DAILY 09/14/16 [History] Montelukast Sodium [Singulair] 10 mg PO HS 09/14/16 [History] Morphine Sulfate ER [Ms Contin] 30 mg PO BID 09/14/16 [History] Morphine Sulfate Ir [MSIR] 15 mg PO TID PRN 09/14/16 [History] Adalimumab [Humira Pen] 40 mg SQ [id number] 12/25/16 [History] Topiramate [Topamax] 25 mg PO HS 12/25/16 [History] predniSONE 10 mg PO DAILY #30 tab 12/27/16 [Rx] Follow up Appointment(s)/Referral(s): Anthony Nagy MD [STAFF PHYSICIAN] - 1 Week Derek Dobbins MD [Primary Care Provider] - 1-2 days Patient Instructions/Handouts: Abdominal Pain (ED) Activity/Diet/Wound Care/Special Instructions: full liquid advance as tolerated. Discharge Disposition: HOME SELF-CARE
[2017-01-08] MEDS ORDERED: ADALIMUMAB 80 MG/1.6 ML KIT SQ SCH (09:00)
== END 2016-12-27 18:14 | disposition home or self-care (01) ==
LOC: EC 14:04 → 3OBS 17:45
PROVIDERS: ADMIT Hospitalist; ATTEND Hospitalist
DX: R10.9 Unspecified abdominal pain (principal); K50.90 Crohn's disease, unspecified, without complications; M06.9 Rheumatoid arthritis, unspecified; K86.1 Other chronic pancreatitis; E44.0 Moderate protein-calorie malnutrition; G89.29 Other chronic pain; Z82.49 Family history of ischemic heart disease and other diseases of the circulatory system; Z79.899 Other long term (current) drug therapy; Z79.83 Long term (current) use of bisphosphonates; Z79.891 Long term (current) use of opiate analgesic; K21.9 Gastro-esophageal reflux disease without esophagitis; Z87.440 Personal history of urinary (tract) infections; Z88.8 Allergy status to other drugs, medicaments and biological substances
CPT/HCPCS: 96375 ×4; 96361 ×4; 96376 ×5; 96374 ×3; 99285 ×2; 96372 ×2; 99284; 36415; 80053 ×2; 85652; 82150; 83690 ×2; 85025 ×3; 86140; 81001; 81025; 74000; 74177; G0378 ×3; J2920 ×2; J2405 ×3; J1650 ×2; J1170 ×3; Q9967; C9113

== ENCOUNTER → 2017-01-24 | Outpatient (CLI) | payer OTHER ==
--- NOTE | 2017-01-25 06:46 | US ---
EXAMINATION TYPE: US transvaginal DATE OF EXAM: 01/24/2017 COMPARISON: CT abdomen and pelvis December 25, 2016. CLINICAL HISTORY: N92.0 MENORRHAGIA; parauterine varices per CT; no menses for 20 years with history of Crohn's Disease, diverticulosis, RA, then patient stated had menses again last 3 months with heav y bleeding; . TECHNIQUE: Transvaginal (TV) Date of LMP: 01/15/2017 EXAM MEASUREMENTS: Uterus: 6.8 x 4.0 x 3.1 cm Endometrial Stripe: 1.5 cm Right Ovary: 2.0 x 1.5 x 1.2 cm Left Ovary: 1.5 x 1.4 x 0.9 cm 1. Uterus: Anteverted; multiple Nabothian cysts in CX with largest = 0.5 x 0.4 x 0.2cm; dilated mul tiple vessels in left uterine periphery correlates with recent CT findings of parauterine varices, et c., suggesting pelvic congestion syndrome 2. Endometrium: complex, abnormally thickened endometrium with small cysts primarily noticed in uppe r endometrium 3. Right Ovary: follicular cyst = 1.3 x 1.3 x 1.2cm; color flow seen in right ovary 4. Left Ovary: multifollicular with largest cyst = 0.7 x 0.7 x 0.5cm; color flow seen in left ovary 5. Bilateral Adnexa: wnl 6. Posterior cul-de-sac: wnl Small amount of free fluid is suspected in pelvic cul-de-sac near axial image 13. Few scattered small nabothian cysts are seen in the cervix. Prominent draining ovarian veins are seen adjacent to left a spect of uterus. Cannot exclude pelvic congestion syndrome. The majority of endometrium does not appe ar definitely thickened, up towards fundus it is more heterogeneous with some cystic change. A few simple appearing cysts are scattered throughout both ovaries. No suspicious adnexal masses are seen. IMPRESSION: Prominent draining veins couldn't reflect product of pelvic congestion syndrome particula rly on the left. There is heterogeneous focal thickening of the endometrium towards fundus with cysti c change, consider adenomyosis.
== END | disposition home or self-care (01) ==
LOC: RADUSWWP 15:08
PROVIDERS: ATTEND Pediatrics
DX: N92.0 Excessive and frequent menstruation with regular cycle (principal)
CPT/HCPCS: 76830

== ENCOUNTER 2017-02-02 11:12 | Inpatient (IN) | payer OTHER ==
[2017-02-02] MEDS ORDERED: SODIUM CHLORIDE 0.9% 1,000 ML IV STA ×2 (12:36)
[2017-02-02] MEDS ORDERED: SODIUM CHLORIDE 0.9% 500 ML IV STA (12:36)
[2017-02-02] MEDS ORDERED: PANTOPRAZOLE 40 MG/10 ML VIAL IVP STA (12:36)
[2017-02-02] MEDS ORDERED: MORPHINE SULFATE 4 MG/ML SYRINGE IV STA (12:36)
[2017-02-02 13:50] LABS: Basophils % (A) 1 %; CH 31.6; CHCM 32.7; Eosinophils % (A) 0 %; HCT 50.8 % (34.0-46.0); HDW 2.12; HGB 16.4 gm/dL (11.4-16.0); Luc # (Auto) 0.22; Luc % (Auto) 3; Lymphocytes # (A) 1.5 k/uL (1.0-4.8); Lymphocytes % (A) 18 %; MCH 31.3 pg (25.0-35.0); MCHC 32.3 g/dL (31.0-37.0); MCV 97.1 fL (80.0-100.0); Mean Platelet Volume 7.4; Monocytes # (A) 0.5 k/uL (0-1.0); Monocytes % (A) 6 %; Neutrophils % (A) 72 %; RBC 5.23 m/uL (3.80-5.40); RDW 13.9 % (11.5-15.5); WBC 8.2 k/uL (3.8-10.6); WBC (Perox) 7.78
[2017-02-02 13:54] LABS: Amorphous Sediment,Urine Moderate /hpf; Appearance,Urine Turbid (Clear); Bilirubin,Urine Negative (Negative); Glucose,Urine (UA) Negative (Negative); Ketones,Urine Negative (Negative); Leukocyte Esterase,Urine Negative (Negative); Mucus,Urine Rare /hpf; Nitrite,Urine Negative (Negative); Particle Count 29305; Protein,Urine Negative (Negative); Specific Gravity,Urine 1.013 (1.001-1.035); Squamous Epithelial Cell,Urine 4 /hpf (0-4); UA Billing (MACRO vs. MICRO) MICRO
[2017-02-02 14:05] LABS: ALT 30 U/L (9-52); AST 17 U/L (14-36); Alkaline Phosphatase 83 U/L (38-126); Amylase 56 U/L (30-110); Anion Gap 17 mmol/L; Blood Urea Nitrogen 8 mg/dL (7-17); Calcium 10.3 mg/dL (8.4-10.2); Carbon Dioxide 20 mmol/L (22-30); Chloride 109 mmol/L (98-107); Glucose 80 mg/dL (74-99); Non-African American GFR(MDRD) >60 (>60 ml/min/1.73 sqM); Potassium 4.1 mmol/L (3.5-5.1); Sodium 146 mmol/L (137-145); Total Bilirubin 0.5 mg/dL (0.2-1.3); Total Protein 7.5 g/dL (6.3-8.2)
--- NOTE | 2017-02-02 14:13 | ED ---
General Adult HPI - General Chief complaint: Abdominal Pain Stated complaint: Pancreatitis Time Seen by Provider: 02/02/17 12:24 Source: patient, RN notes reviewed, old records reviewed Mode of arrival: ambulatory Limitations: no limitations - History of Present Illness Initial comments: This is a 41-year-old female here with about pain, nausea, vomiting. No fevers. History of pancreatitis history of Crohn's colitis. Patient states her vomiting has been persistent throughout the day. Unable to keep anything down, feels very dehydrated. No recent fevers. No change in bowel habits - Related Data Home Medications Medication Instructions Recorded Confirmed Alendronate Sodium [Fosamax] 70 mg PO MO 06/07/16 02/02/17 SUMAtriptan SUCCINATE [Imitrex] 100 mg PO DAILY PRN 06/07/16 02/02/17 Omeprazole 20 mg PO BID 08/05/16 02/02/17 Ondansetron [Zofran ODT] 8 mg PO TID PRN 08/18/16 02/02/17 Lipase/Protease/Amylase [Thor Ambrocio 3 cap PO AC-TID 09/14/16 02/02/17 24,000 Units Capsule] Loratadine 10 mg PO DAILY 09/14/16 02/02/17 Montelukast Sodium [Singulair] 10 mg PO HS 09/14/16 02/02/17 Morphine Sulfate ER [Ms Contin] 30 mg PO BID 09/14/16 02/02/17 Morphine Sulfate Ir [MSIR] 15 mg PO TID PRN 09/14/16 02/02/17 Adalimumab [Humira Pen] 40 mg SQ [id number] 12/25/16 02/02/17 Topiramate [Topamax] 50 mg PO BID 02/02/17 02/02/17 Allergies Allergy/AdvReac Type Severity Reaction Status Date / Time metoclopramide [From Reglan] AdvReac LEFT Verified 02/02/17 12:42 ARM/EYE TWITCH Review of Systems ROS Statement: Those systems with pertinent positive or pertinent negative responses have been documented in the HPI. ROS Other: All systems not noted in ROS Statement are negative. Past Medical History Past Medical History: Eye Disorder, GERD/Reflux, Neurologic Disorder, Osteoarthritis (OA), Rheumatoid Arthritis (RA) Additional Past Medical History / Comment(s): chronic pancreatitis, Crohn's disease, blood in stool, diverticulosis, hx ulcers, frequent UTI'S, hx blood clots in arm, hx anemia, hx kidney failure from dehydration 12 yrs ago, neuropathy History of Any Multi-Drug Resistant Organisms: None Reported Past Surgical History: Cholecystectomy Additional Past Surgical History / Comment(s): colonsocopy, EGD, Past Anesthesia/Blood Transfusion Reactions: No Reported Reaction Additional Past Anesthesia/Blood Transfusion Reaction / Comment(s): has had 13 blood transfusion-no reaction Past Psychological History: No Psychological Hx Reported Smoking Status: Never smoker Past Alcohol Use History: None Reported Past Drug Use History: Marijuana - Past Family History Father Family Medical History: Myocardial Infarction ([place]) Additional Family Medical History / Comment(s): biological father had hx of drug abuse Mother Family Medical History: No Reported History General Exam Limitations: no limitations General appearance: alert, in no apparent distress Head exam: Present: atraumatic, normocephalic, normal inspection Eye exam: Present: normal appearance, PERRL, EOMI. Absent: scleral icterus, conjunctival injection, periorbital swelling ENT exam: Present: normal exam, mucous membranes moist Neck exam: Present: normal inspection. Absent: tenderness, meningismus, lymphadenopathy Respiratory exam: Present: normal lung sounds bilaterally. Absent: respiratory distress, wheezes, rales, rhonchi, stridor Cardiovascular Exam: Present: regular rate, normal rhythm, normal heart sounds. Absent: systolic murmur, diastolic murmur, rubs, gallop, clicks GI/Abdominal exam: Present: soft, normal bowel sounds. Absent: distended, tenderness, guarding, rebound, rigid Extremities exam: Present: normal inspection, full ROM, normal capillary refill. Absent: tenderness, pedal edema, joint swelling, calf tenderness Back exam: Present: normal inspection Neurological exam: Present: alert, oriented X3, CN II-XII intact Psychiatric exam: Present: normal affect, normal mood Skin exam: Present: warm, dry, intact, normal color. Absent: rash Course Vital Signs 02/02/17 02/02/17 11:18 15:25 Temperature 97.9 F 98.6 F Pulse Rate 88 62 Respiratory 17 16 Rate Blood Pressure 125/75 116/75 O2 Sat by Pulse 100 100 Oximetry - Reevaluation(s) Reevaluation #1: 02/02/17 16:16 No improvement with antiemetics or pain control here at this time Medical Decision Making - Medical Decision Making 41 female here for evaluation and checked for nausea vomiting. The bowel pain. Patient will be admitted for GI evaluation. - Lab Data Result diagrams: 02/02/17 13:34 02/02/17 13:34 Lab Results 02/02/17 02/02/17 02/02/17 Range/Units 13:34 13:34 13:34 WBC 8.2 (3.8-10.6) k/uL RBC 5.23 (3.80-5.40) m/uL Hgb 16.4 H (11.4-16.0) gm/dL Hct 50.8 H (34.0-46.0) % MCV 97.1 (80.0-100.0) fL MCH 31.3 (25.0-35.0) pg MCHC 32.3 (31.0-37.0) g/dL RDW 13.9 (11.5-15.5) % Plt Count 246 (150-450) k/uL Neutrophils % 72 % Lymphocytes % 18 % Monocytes % 6 % Eosinophils % 0 % Basophils % 1 % Neutrophils # 6.0 (1.3-7.7) k/uL Lymphocytes # 1.5 (1.0-4.8) k/uL Monocytes # 0.5 (0-1.0) k/uL Eosinophils # 0.0 (0-0.7) k/uL Basophils # 0.0 (0-0.2) k/uL Sodium 146 H (137-145) mmol/L Potassium 4.1 (3.5-5.1) mmol/L Chloride 109 H (98-107) mmol/L Carbon Dioxide 20 L (22-30) mmol/L Anion Gap 17 mmol/L BUN 8 (7-17) mg/dL Creatinine 0.70 (0.52-1.04) mg/dL Est GFR (MDRD) Af Amer >60 (>60 ml/min/1.73 sqM) Est GFR (MDRD) Non-Af >60 (>60 ml/min/1.73 sqM) Glucose 80 (74-99) mg/dL Calcium 10.3 H (8.4-10.2) mg/dL Total Bilirubin 0.5 (0.2-1.3) mg/dL AST 17 (14-36) U/L ALT 30 (9-52) U/L Alkaline Phosphatase 83 (38-126) U/L Total Protein 7.5 (6.3-8.2) g/dL Albumin 4.7 (3.5-5.0) g/dL Amylase 56 (30-110) U/L Lipase 188 (23-300) U/L Urine Color Urine Appearance (Clear) Urine pH (5.0-8.0) Ur Specific [place] (1.001-1.035) Urine Protein (Negative) Urine Glucose (UA) (Negative) Urine Ketones (Negative) Urine Blood (Negative) Urine Nitrite (Negative) Urine Bilirubin (Negative) Urine Urobilinogen (<2.0) mg/dL Ur Leukocyte Esterase (Negative) Ur Squamous Epith Cells (0-4) /hpf Amorphous Sediment (None) /hpf Urine Mucus (None) /hpf Urine HCG, Qual Not Detected (Not Detectd) 02/02/17 Range/Units 13:34 WBC (3.8-10.6) k/uL RBC (3.80-5.40) m/uL Hgb (11.4-16.0) gm/dL Hct (34.0-46.0) % MCV (80.0-100.0) fL MCH (25.0-35.0) pg MCHC (31.0-37.0) g/dL RDW (11.5-15.5) % Plt Count (150-450) k/uL Neutrophils % % Lymphocytes % % Monocytes % % Eosinophils % % Basophils % % Neutrophils # (1.3-7.7) k/uL Lymphocytes # (1.0-4.8) k/uL Monocytes # (0-1.0) k/uL Eosinophils # (0-0.7) k/uL Basophils # (0-0.2) k/uL Sodium (137-145) mmol/L Potassium (3.5-5.1) mmol/L Chloride (98-107) mmol/L Carbon Dioxide (22-30) mmol/L Anion Gap mmol/L BUN (7-17) mg/dL Creatinine (0.52-1.04) mg/dL Est GFR (MDRD) Af Amer (>60 ml/min/1.73 sqM) Est GFR (MDRD) Non-Af (>60 ml/min/1.73 sqM) Glucose (74-99) mg/dL Calcium (8.4-10.2) mg/dL Total Bilirubin (0.2-1.3) mg/dL AST (14-36) U/L ALT (9-52) U/L Alkaline Phosphatase (38-126) U/L Total Protein (6.3-8.2) g/dL Albumin (3.5-5.0) g/dL Amylase (30-110) U/L Lipase (23-300) U/L Urine Color Yellow Urine Appearance Turbid H (Clear) Urine pH 8.0 (5.0-8.0) Ur Specific [place] 1.013 (1.001-1.035) Urine Protein Negative (Negative) Urine Glucose (UA) Negative (Negative) Urine Ketones Negative (Negative) Urine Blood Negative (Negative) Urine Nitrite Negative (Negative) Urine Bilirubin Negative (Negative) Urine Urobilinogen 2.0 (<2.0) mg/dL Ur Leukocyte Esterase Negative (Negative) Ur Squamous Epith Cells 4 (0-4) /hpf Amorphous Sediment Moderate H (None) /hpf Urine Mucus Rare H (None) /hpf Urine HCG, Qual (Not Detectd) Disposition Clinical Impression: Nausea & vomiting, Chronic abdominal pain Disposition: ADMITTED IP TO THIS HOSP Condition: Good Instructions: Abdominal Pain (ED) Referrals: Derek Dobbins MD [Primary Care Provider] - 1-2 days
[2017-02-02] MEDS ORDERED: diphenhydrAMINE 50 MG/ML 1 ML VIAL IVP STA (14:17)
[2017-02-02] MEDS ORDERED: LORazepam 2 MG/ML SYRINGE IV STA (14:17)
[2017-02-02] MEDS ORDERED: HYDROmorphone 2 MG/ML 1 ML SYRINGE IVP STA (14:17)
[2017-02-02] MEDS ORDERED: ONDANSETRON 4 MG/2 ML VIAL IVP STA (16:15)
[2017-02-02 17:25] VITALS: BMI 16.5
[2017-02-02] MEDS: MORPHINE SULFATE 4 MG/ML SYRINGE IVP PRN (17:30)
[2017-02-02] MEDS ORDERED: SUMAtriptan SUCCINATE 50 MG TAB PO PRN (18:11)
[2017-02-02] MEDS ORDERED: MORPHINE SULFATE IR 15 MG TABLET PO PRN (18:11)
[2017-02-02] MEDS: SODIUM CHLORIDE 0.9% 1,000 ML IV SCH (18:32)
[2017-02-02 19:27] LABS: Amylase 37 U/L (30-110)
--- NOTE | 2017-02-02 20:58 | HP ---
CHIEF COMPLAINT: Abdominal pain. HISTORY OF PRESENT ILLNESS: This 41-year-old woman with a past medical history of multiple medical problems, including Crohn's disease, history of chronic pancreatitis, chronic pain syndrome, being followed by Dr. Derek Dobbins in the outpatient setting, was complaining of severe abdominal pain since yesterday. The pain was felt in the anterior part of the abdomen. Patient also was complaining of back pain. Patient had some nausea and vomiting. She came to [facility] and was admitted for further evaluation and treatment. Patient tried to control the pain by herself, which is not working, and the patient is admitted for further evaluation and treatment. There is no history of any fever, rigor, chills. No history of headache, loss of consciousness, seizures. PAST MEDICAL HISTORY: 1. History of chronic pancreatitis. 2. History of GERD. 3. DJD. 4. History of rheumatoid arthritis. HOME MEDICATIONS: 1. Topamax 50 mg p.o. b.i.d. 2. Imitrex 100 mg daily p.r.n. 3. Zofran 8 mg t.i.d. p.r.n. 4. Omeprazole 20 mg b.i.d. 5. MSIR 15 mg t.i.d. p.r.n. 6. MS Contin 30 mg p.o. b.i.d. 7. Singulair 10 mg at bedtime. 8. Loratadine 10 mg p.o. daily. 9. Creon 3 capsules before meals t.i.d. 10. Fosamax 70 mg monthly. 11. Humira Pen 40 mg subcutaneously every 14 days. ALLERGIES: REGLAN. FAMILY HISTORY: No history of heart disease or strokes in the family. History of substance abuse in biological father. SOCIAL HISTORY: No history smoking. No history of alcohol intake. REVIEW OF SYSTEMS: ENT: No diminished hearing. No diminished vision. CARVIOVASCULAR SYSTEM: No angina, palpitations. RESPIRATORY SYSTEM: No cough, hemoptysis. GI: As mentioned earlier. : No dysuria, retention. NERVOUS SYSTEM: No numbness, weakness. ALLERGY/IMMUNOLOGY: No asthma, hayfever. MUSCULOSKELETAL: As mentioned earlier. HEMATOLOGY/ONCOLOGY: No history of anemia. ENDOCRINE: No history of diabetes, hypothyroidism. CONSTITUTIONAL: As mentioned earlier. DERMATOLOGY: Negative. RHEUMATOLOGY: As mentioned earlier. PSYCHIATRY: As mentioned earlier. PHYSICAL EXAM: Patient is alert and oriented x3. Pulse is 63, blood pressure 115 /82, respiration 18, temperature 98.2, pulse ox 99% on room air. HEENT: Conjunctivae normal. NECK: No jugular venous distention. CARDIOVASCULAR: S1, S2 muffled. RESPIRATORY: Breath sounds diminished at the bases. No rhonchi. No crackles. ABDOMEN: Soft. Referred mild diffuse tenderness present. No guarding. No rigidity. No mass palpable. LEGS: No edema. No swelling. NERVOUS SYSTEM: Higher functions as mentioned earlier. Moves all 4 limbs. No focal motor or sensory deficit. LYMPHATICS: No lymph node palpable in neck, axillae or groin. SKIN: No ulcer, rash, bleeding. LABS: WBC 8.9, hemoglobin 16.4. Sodium 146. ASSESSMENT: 1. Acute abdominal pain with acute on chronic pancreatitis. 2. Hypernatremia. 3. Dehydration. 4. Chronic pain syndrome. 5. Gastroesophageal reflux disease. 6. History of rheumatoid arthritis. 7. History of Crohn's disease, chronic. RECOMMENDATIONS AND DISCUSSION: In this 41-year-old woman who presented with multiple complex medical issues, we will monitor the patient closely, continue the current medications, continue with symptomatic treatment. I will initiate IV fluids; 0.9 will be ordered. Repeat labs. NPO diet. Once the patient is better, we will advance the diet. Gastroenterology will be consulted. DVT prophylaxis. Resume the home medications. Further recommendations to follow. Discussed with the patient, who understands and agrees. Old charts were reviewed. A copy of this dictation is being forwarded to Dr. Dobbins, who is the primary physician. VIOLETA
[2017-02-02] MEDS: PANTOPRAZOLE 40 MG/10 ML VIAL IVP SCH (21:24)
[2017-02-02] MEDS: TOPIRAMATE 25 MG TAB PO SCH (21:24)
[2017-02-02] MEDS: MORPHINE SULFATE ER 30 MG TABLET PO SCH (21:24)
[2017-02-02] MEDS: MONTELUKAST 10 MG TAB PO SCH (21:25)
[2017-02-03] MEDS: SODIUM CHLORIDE 0.9% 1,000 ML IV SCH ×3 (02:39→22:07)
[2017-02-03] MEDS: MORPHINE SULFATE 4 MG/ML SYRINGE IVP PRN ×5 (02:42→22:47)
[2017-02-03] MEDS: ONDANSETRON 4 MG/2 ML VIAL IVP PRN ×3 (06:25→22:12)
[2017-02-03 07:01] LABS: Basophils % (A) 1 %; CH 31.2; CHCM 31.4; Eosinophils % (A) 0 %; HDW 2.16; Luc # (Auto) 0.18; Luc % (Auto) 3; Lymphocytes % (A) 34 %; MCH 31.3 pg (25.0-35.0); MCHC 31.4 g/dL (31.0-37.0); MCV 99.8 fL (80.0-100.0); Mean Platelet Volume 7.5; Monocytes # (A) 0.3 k/uL (0-1.0); Monocytes % (A) 6 %; Neutrophils # (A) 3.2 k/uL (1.3-7.7); Neutrophils % (A) 56 %; RBC 4.21 m/uL (3.80-5.40); WBC 5.7 k/uL (3.8-10.6)
[2017-02-03 07:19] LABS: HGB 13.2 gm/dL (11.4-16.0)
[2017-02-03 07:20] LABS: Anion Gap 7 mmol/L; Blood Urea Nitrogen 11 mg/dL (7-17); Calcium 8.5 mg/dL (8.4-10.2); Carbon Dioxide 20 mmol/L (22-30); Chloride 116 mmol/L (98-107); Glucose 68 mg/dL (74-99); Non-African American GFR(MDRD) >60 (>60 ml/min/1.73 sqM); Potassium 4.3 mmol/L (3.5-5.1); Sodium 143 mmol/L (137-145)
[2017-02-03] MEDS: LIPASE 5,000/PROTEASE 17,000/AMYLASE 27,0000 PO SCH ×3 (07:25→17:13)
[2017-02-03] MEDS: PANTOPRAZOLE 40 MG/10 ML VIAL IVP SCH ×2 (08:38→22:07)
[2017-02-03] MEDS: MORPHINE SULFATE ER 30 MG TABLET PO SCH ×2 (08:39→22:03)
[2017-02-03] MEDS: TOPIRAMATE 25 MG TAB PO SCH ×2 (08:39→22:05)
[2017-02-03] MEDS: ENOXAPARIN 40 MG/0.4 ML SYRINGE SQ SCH (08:39)
--- NOTE | 2017-02-03 11:22 | P.CONS ---
History of Present Illness - Reason for Consult Consult date: 02/03/17 Abdominal pain history of Crohn's Requesting physician: Zenaida Cabrera - History of Present Illness 41-year-old female with a history of rheumatoid arthritis, Crohn's disease diagnosed at age 16 as well as chronic pancreatitis several years ago likely related to Imuran sulfa-based drugs presents with mid abdominal pain nausea vomiting loose nonbloody stools. Consultation requested for abdominal pain with history of Crohn's. Patient is on Humira her last dose Tuesday. Upper and lower endoscopy August [address] Nagy for evaluation of chronic pain nausea vomiting frequent loose stools resulted in remission with no evidence of active inflammation endoscopically with normal biopsies. Over the last 3 months patient has had recurrence of her menstrual periods; states she hasn't had them for more than 20 years. Recent pelvic ultrasound reported possible pelvic congestion syndrome. Denies fever chills hematemesis magnesium melena. Presently she feels better. 4 loose stools through the night. Biochemically white count 8.2. Hemoglobin 16. BUN 8. Creatinine 0.7. Transaminases bilirubin normal. Lipase 188. HCG not detected. Review of Systems Constitutional: Denies fever, chills, sweats, weight gain, or loss. HEENT: Negative for migraines, blurred vision or loss, earaches, drainage, tinnitus, oral mucosal lesions, dysphagia, or odynophagia. CARDIAC: Negative for chest pain, arrhythmias, or palpitation. RESPIRATORY: Negative for shortness of breath, hemoptysis, cough, or sputum production. GI: See HPI for pertinent findings. : Negative for hematuria, urgency, frequency, polyuria, or dysuria. GYNc: Denies possibility of . Negative vaginal discharge. MUSCULOSKELETAL: Negative for muscle aches, swelling, arthritis, and arthralgias. NEUROLOGIC: Negative for stroke or TIA. ENDOCRINE: Negative for thyroid problems. SKIN: Negative for rash or itching. PSYCHIATRIC: Negative history for depression and anxiety All systems: negative (See HPI) Past Medical History Past Medical History: Eye Disorder, GERD/Reflux, Neurologic Disorder, Osteoarthritis (OA), Rheumatoid Arthritis (RA) Additional Past Medical History / Comment(s): chronic pancreatitis, Crohn's disease, blood in stool, diverticulosis, hx ulcers, frequent UTI'S, hx blood clots in arm, hx anemia, hx kidney failure from dehydration 12 yrs ago, neuropathy History of Any Multi-Drug Resistant Organisms: None Reported Past Surgical History: Cholecystectomy Additional Past Surgical History / Comment(s): colonsocopy, EGD, Past Anesthesia/Blood Transfusion Reactions: No Reported Reaction Additional Past Anesthesia/Blood Transfusion Reaction / Comm: has had 13 blood transfusion-no reaction Past Psychological History: No Psychological Hx Reported Additional Psychological History / Comment(s): . Smoking Status: Never smoker Past Alcohol Use History: None Reported Past Drug Use History: Marijuana Additional Drug Use History / Comment(s): not in several months - Past Family History Father Family Medical History: Myocardial Infarction ([place]) Additional Family Medical History / Comment(s): biological father had hx of drug abuse Mother Family Medical History: No Reported History Medications and Allergies Home Medications Medication Instructions Recorded Confirmed Type Alendronate Sodium [Fosamax] 70 mg PO MO 06/07/16 02/02/17 History SUMAtriptan SUCCINATE [Imitrex] 100 mg PO DAILY PRN 06/07/16 02/02/17 History Omeprazole 20 mg PO BID 08/05/16 02/02/17 History Ondansetron [Zofran ODT] 8 mg PO TID PRN 08/18/16 02/02/17 History Lipase/Protease/Amylase [Thor Ambrocio 3 cap PO AC-TID 09/14/16 02/02/17 History 24,000 Units Capsule] Loratadine 10 mg PO DAILY 09/14/16 02/02/17 History Montelukast Sodium [Singulair] 10 mg PO HS 09/14/16 02/02/17 History Morphine Sulfate ER [Ms Contin] 30 mg PO BID 09/14/16 02/02/17 History Morphine Sulfate Ir [MSIR] 15 mg PO TID PRN 09/14/16 02/02/17 History Adalimumab [Humira Pen] 40 mg SQ [id number] 12/25/16 02/02/17 History Topiramate [Topamax] 50 mg PO BID 02/02/17 02/02/17 History Allergies Allergy/AdvReac Type Severity Reaction Status Date / Time metoclopramide [From Reglan] AdvReac LEFT Verified 02/02/17 12:42 ARM/EYE TWITCH Physical Exam Vitals: Vital Signs Temp Pulse Pulse Resp BP BP Pulse Ox 02/03/17 08:15 96.7 F L 59 L 16 103/72 100 02/03/17 06:54 97.8 F 51 L 16 96/61 99 02/03/17 00:00 20 02/02/17 21:00 20 02/02/17 20:18 97.5 F L 54 L 20 98/50 100 02/02/17 17:36 98.2 F 63 18 115/82 99 02/02/17 16:55 98.5 F 60 16 109/67 100 02/02/17 15:25 98.6 F 62 16 116/75 100 02/02/17 11:18 97.9 F 88 17 125/75 100 Intake and Output 02/02/17 02/03/17 02/03/17 22:59 06:59 14:59 Intake Total 200 Balance 200 Intake: Oral 200 Other: Voiding Method Toilet # Voids 1 1 # Bowel Movements 2 2 Weight 43.545 kg General appearance: The patient is alert, oriented, in no acute distress. HET: Head is normocephalic and atraumatic. Pupils are equal and reactive. Oropharynx is clear without lesions. Neck: Supple without lymphadenopathy. Trachea midline. Heart: S1 S2. Regular rate and rhythm. Lungs: No crackles or wheezes are heard. Abdomen: Soft, very mild tenderness midepigastrium, nondistended with bowel sounds. No peritoneal signs. No palpable organomegaly or masses. Extremities: Normal skin color and turgor. No cyanosis, rash, ulceration, clubbing, or edema. Radial and pedal pulses are 2/4 bilaterally. Neurological: No focal deficits. Strength and sensation are grossly intact. Results CBC & Chem 7: 02/03/17 06:21 02/03/17 06:21 Labs: Abnormal Lab Results - Last 24 Hours (Table) 02/02/17 02/02/17 02/02/17 Range/Units 13:34 13:34 13:34 Hgb 16.4 H (11.4-16.0) gm/dL Hct 50.8 H (34.0-46.0) % Sodium 146 H (137-145) mmol/L Chloride 109 H (98-107) mmol/L Carbon Dioxide 20 L (22-30) mmol/L Glucose (74-99) mg/dL Calcium 10.3 H (8.4-10.2) mg/dL Urine Appearance Turbid H (Clear) Amorphous Sediment Moderate H (None) /hpf Urine Mucus Rare H (None) /hpf 02/03/17 Range/Units 06:21 Hgb (11.4-16.0) gm/dL Hct (34.0-46.0) % Sodium (137-145) mmol/L Chloride 116 H (98-107) mmol/L Carbon Dioxide 20 L (22-30) mmol/L Glucose 68 L (74-99) mg/dL Calcium (8.4-10.2) mg/dL Urine Appearance (Clear) Amorphous Sediment (None) /hpf Urine Mucus (None) /hpf Microbiology - Last 24 Hours (Table) 02/02/17 13:34 Urine Culture - Preliminary Urine,Clean Catch Assessment and Plan (1) Chronic abdominal pain Narrative/Plan: Etiology unclear exacerbation of Crohn's disease felt to be less likely. Possible gastritis possible gastroenteriti. Status: Acute (2) Crohns disease Status: Acute Plan: 1. Patient is requesting diet will start with a low residue and observe. Will obtain CRP sed rate. Stool studies Clostridium difficile testing. Continue with Humira as directed. Endoscopic exams not planned at this time. Thank you for this kind referral and the opportunity to participate in the care of your patient. This consultation was discussed with Dr. Bonilla. The impression and plan of care have been directed as dictated.
[2017-02-03] MEDS: MONTELUKAST 10 MG TAB PO SCH (22:03)
--- NOTE | 2017-02-03 22:46 | PN ---
DATE OF SERVICE: 02/03/2017 This 41-year-old woman who was admitted with acute abdominal pain with acute on chronic pancreatitis is being closely monitored. No chest pain. No palpitations. No fever. Her diet is being advanced. On exam, alert and oriented x3. Pulse is 51, blood pressure 96/61, respiration 16, temperature 97.8, pulse ox 99% on room air. HEENT: Conjunctivae normal. NECK: No jugular venous distention. CARDIOVASCULAR: S1, S2 muffled. RESPIRATORY: Breath sounds diminished at the bases. No rhonchi. No crackles. ABDOMEN: Soft. Diffuse tenderness present. No guarding. No rigidity. No mass palpable. LEGS: No edema. No swelling. NERVOUS SYSTEM: No focal deficit. LABS: CBC within normal limits. Sodium 143. ASSESSMENT: 1. Acute abdominal pain with possible acute on chronic pancreatitis. 2. Hypernatremia. 3. Dehydration. 4. Chronic pain syndrome. 5. Gastroesophageal reflux disease. 6. History of rheumatoid arthritis. 7. History of Crohn's disease, chronic. RECOMMENDATIONS AND DISCUSSION: I recommend continuing current medications, continue with the monitoring and symptomatic treatment. Otherwise, at this time I would recommend advancing the diet. Pain medications. Monitor closely. Further recommendations to follow. MTDD
[2017-02-03 23:32] VITALS: RESP 18
[2017-02-04] MEDS: ONDANSETRON 4 MG/2 ML VIAL IVP PRN (06:03)
[2017-02-04] MEDS: MORPHINE SULFATE 4 MG/ML SYRINGE IVP PRN (06:04)
[2017-02-04] MEDS: LIPASE 5,000/PROTEASE 17,000/AMYLASE 27,0000 PO SCH ×2 (06:48→11:55)
[2017-02-04] MEDS ORDERED: PANTOPRAZOLE 40 MG TABLET PO SCH (07:30)
[2017-02-04] MEDS: MORPHINE SULFATE ER 30 MG TABLET PO SCH (08:26)
[2017-02-04] MEDS: ENOXAPARIN 40 MG/0.4 ML SYRINGE SQ SCH (08:26)
[2017-02-04] MEDS: TOPIRAMATE 25 MG TAB PO SCH (08:26)
[2017-02-04] MEDS: SODIUM CHLORIDE 0.9% 1,000 ML IV SCH (11:22)
[2017-02-04 12:05] VITALS: BP 119/79; PULSE 64; TEMP 98
== END 2017-02-04 12:53 | disposition home or self-care (01) | DRG 439 ==
LOC: EC 11:12 → 6PED 16:13
PROVIDERS: ADMIT Internal Medicine; ATTEND Internal Medicine
DX: K85.90 Acute pancreatitis without necrosis or infection, unspecified (principal); E87.0 Hyperosmolality and hypernatremia; K50.90 Crohn's disease, unspecified, without complications; E86.0 Dehydration; K86.1 Other chronic pancreatitis; G89.4 Chronic pain syndrome; K21.9 Gastro-esophageal reflux disease without esophagitis; M06.9 Rheumatoid arthritis, unspecified; G62.9 Polyneuropathy, unspecified; K57.90 Diverticulosis of intestine, part unspecified, without perforation or abscess without bleeding; M19.90 Unspecified osteoarthritis, unspecified site; Z79.899 Other long term (current) drug therapy; Z88.8 Allergy status to other drugs, medicaments and biological substances; Z82.49 Family history of ischemic heart disease and other diseases of the circulatory system
CPT/HCPCS: 36415; 80048; 80053; 81001; 81025; 82150; 83690; 85025; 85652; 86140; 87086; 96361; 96374; 96375; 99285

== ENCOUNTER 2017-03-01 10:34 | Emergency (ER) | payer OTHER ==
[2017-03-01] MEDS ORDERED: SODIUM CHLORIDE 0.9% 1,000 ML IV STA (10:54)
[2017-03-01] MEDS ORDERED: ONDANSETRON 4 MG/2 ML VIAL IVP STA ×2 (10:54→13:43)
[2017-03-01] MEDS ORDERED: HYDROmorphone 1 MG/ML 1 ML SYRINGE IVP STA (10:54)
--- NOTE | 2017-03-01 11:01 | ED ---
General Adult HPI - General Chief complaint: Nausea/Vomiting/Diarrhea Stated complaint: crohns/pancreatitis--vomiting Time Seen by Provider: 03/01/17 10:40 Source: patient, RN notes reviewed Mode of arrival: wheelchair Limitations: no limitations - History of Present Illness Initial comments: Patient is a 5-year-old female sent with him past medical history for premature tenderness, Crohn's, who presents emergency room today with a chief complaint of abdominal pain that started yesterday. She does admit that she had symptoms of nausea vomiting diarrhea. Denies any signs of blood. Patient denies any other complaints or symptoms. Patient denies any recent fever, chills, shortness of breath, chest pain, back pain, numbness or tingling, dysuria or hematuria, constipation, headaches or visual changes, or any other complaints. - Related Data Home Medications Medication Instructions Recorded Confirmed Alendronate Sodium [Fosamax] 70 mg PO MO 06/07/16 03/01/17 SUMAtriptan SUCCINATE [Imitrex] 100 mg PO DAILY PRN 06/07/16 03/01/17 Omeprazole 20 mg PO BID 08/05/16 03/01/17 Ondansetron [Zofran ODT] 8 mg PO TID PRN 08/18/16 03/01/17 Lipase/Protease/Amylase [Thor Ambrocio 3 cap PO AC-TID 09/14/16 03/01/17 24,000 Units Capsule] Loratadine 10 mg PO DAILY 09/14/16 03/01/17 Montelukast Sodium [Singulair] 10 mg PO HS 09/14/16 03/01/17 Morphine Sulfate ER [Ms Contin] 30 mg PO BID 09/14/16 03/01/17 Morphine Sulfate Ir [MSIR] 15 mg PO TID PRN 09/14/16 03/01/17 Adalimumab [Humira Pen] 40 mg SQ [id number] 12/25/16 03/01/17 Topiramate [Topamax] 50 mg PO BID 02/02/17 03/01/17 Previous Rx's Medication Instructions Recorded predniSONE 10 mg PO DIRECTED 7 Days 03/01/17 Allergies Allergy/AdvReac Type Severity Reaction Status Date / Time metoclopramide [From Reglan] AdvReac LEFT Verified 03/01/17 10:57 ARM/EYE TWITCH Review of Systems ROS Statement: Those systems with pertinent positive or pertinent negative responses have been documented in the HPI. ROS Other: All systems not noted in ROS Statement are negative. Past Medical History Past Medical History: Eye Disorder, GERD/Reflux, Neurologic Disorder, Osteoarthritis (OA), Rheumatoid Arthritis (RA) Additional Past Medical History / Comment(s): chronic pancreatitis, Crohn's disease, blood in stool, diverticulosis, hx ulcers, frequent UTI'S, hx blood clots in arm, hx anemia, hx kidney failure from dehydration 12 yrs ago, neuropathy History of Any Multi-Drug Resistant Organisms: None Reported Past Surgical History: Cholecystectomy Additional Past Surgical History / Comment(s): colonsocopy, EGD, Past Anesthesia/Blood Transfusion Reactions: No Reported Reaction Additional Past Anesthesia/Blood Transfusion Reaction / Comment(s): has had 13 blood transfusion-no reaction Past Psychological History: No Psychological Hx Reported Smoking Status: Never smoker Past Alcohol Use History: None Reported Past Drug Use History: Marijuana - Past Family History Father Family Medical History: Myocardial Infarction ([place]) Additional Family Medical History / Comment(s): biological father had hx of drug abuse Mother Family Medical History: No Reported History General Exam - General Exam Comments Initial Comments: General: The patient is awake and alert, in no distress, and does not appear acutely ill. Eye: Pupils are equal, round and reactive to light, extra-ocular movements are intact. No nystagmus. There is normal conjunctiva bilaterally. No signs of icterus. Ears, nose, mouth and throat: There are moist mucous membranes and no oral lesions. Neck: The neck is supple, there is no tenderness or JVD. Cardiovascular: There is a regular rate and rhythm. No murmur, rub or gallop is appreciated. Respiratory: Lungs are clear to auscultation, respirations are non-labored, breath sounds are equal. No wheezes, stridor, rales, or rhonchi. Gastrointestinal: Normal. Bowel sounds. Abdomen soft on palpation. Patient does have tenderness greater on the left upper and lower quadrants. No rebound tenderness. No guarding. No CVA tenderness. Musculoskeletal: Normal ROM, no tenderness. Strength 5/5. Sensation intact. Pulses equal bilaterally 2+. Neurological: A&O x 3. CN II-XII intact, There are no obvious motor or sensory deficits. Coordination appears grossly intact. Speech is normal. Skin: Skin is warm and dry and no rashes or lesions are noted. Psychiatric: Cooperative, appropriate mood & affect, normal judgment. Limitations: no limitations Course Vital Signs 03/01/17 10:36 Temperature 98.3 F Pulse Rate 54 L Respiratory 20 Rate Blood Pressure 113/74 O2 Sat by Pulse 99 Oximetry Medical Decision Making - Medical Decision Making Case discussed in detail with attending physician Patient reexamined at this time shows no signs of distress resting comfortably. Patient's x-ray shows partial obstruction. She is having loose stool and passing gas here in emergency room. Patient abdomen soft at this time feeling better after pain medication here patient does admit to history of Crohn's states feels similar. Will be started on a tapering dose of steroids. Advised to follow-up with the GI specialist over the next 2 days. Advised return if symptoms increase or worsen - Lab Data Result diagrams: 03/01/17 11:28 03/01/17 11:28 Lab Results 03/01/17 03/01/17 03/01/17 Range/Units 11:00 11:00 11:28 WBC (3.8-10.6) k/uL RBC (3.80-5.40) m/uL Hgb (11.4-16.0) gm/dL Hct (34.0-46.0) % MCV (80.0-100.0) fL MCH (25.0-35.0) pg MCHC (31.0-37.0) g/dL RDW (11.5-15.5) % Plt Count (150-450) k/uL Neutrophils % % Lymphocytes % % Monocytes % % Eosinophils % % Basophils % % Neutrophils # (1.3-7.7) k/uL Lymphocytes # (1.0-4.8) k/uL Monocytes # (0-1.0) k/uL Eosinophils # (0-0.7) k/uL Basophils # (0-0.2) k/uL Sodium 141 (137-145) mmol/L Potassium 4.5 (3.5-5.1) mmol/L Chloride 105 (98-107) mmol/L Carbon Dioxide 21 L (22-30) mmol/L Anion Gap 15 mmol/L BUN 16 (7-17) mg/dL Creatinine 0.90 (0.52-1.04) mg/dL Est GFR (MDRD) Af Amer >60 (>60 ml/min/1.73 sqM) Est GFR (MDRD) Non-Af >60 (>60 ml/min/1.73 sqM) Glucose 98 (74-99) mg/dL Calcium 10.8 H (8.4-10.2) mg/dL Total Bilirubin 1.1 (0.2-1.3) mg/dL AST 22 (14-36) U/L ALT 30 (9-52) U/L Alkaline Phosphatase 94 (38-126) U/L Total Protein 8.6 H (6.3-8.2) g/dL Albumin 5.2 H (3.5-5.0) g/dL Amylase 49 (30-110) U/L Lipase 116 (23-300) U/L Urine Color Yellow Urine Appearance Cloudy H (Clear) Urine pH 6.0 (5.0-8.0) Ur Specific [place] 1.023 (1.001-1.035) Urine Protein 1+ H (Negative) Urine Glucose (UA) Negative (Negative) Urine Ketones 3+ H (Negative) Urine Blood Small H (Negative) Urine Nitrite Negative (Negative) Urine Bilirubin 1+ H (Negative) Urine Urobilinogen 3.0 (<2.0) mg/dL Ur Leukocyte Esterase Negative (Negative) Urine RBC 15 H (0-5) /hpf Urine WBC 2 (0-5) /hpf Ur Squamous Epith Cells 4 (0-4) /hpf Urine Mucus Many H (None) /hpf Urine HCG, Qual Not Detected (Not Detectd) 03/01/17 Range/Units 11:28 WBC 8.7 (3.8-10.6) k/uL RBC 5.58 H (3.80-5.40) m/uL Hgb 17.2 H D (11.4-16.0) gm/dL Hct 53.1 H (34.0-46.0) % MCV 95.1 (80.0-100.0) fL MCH 30.8 (25.0-35.0) pg MCHC 32.4 (31.0-37.0) g/dL RDW 14.7 (11.5-15.5) % Plt Count 252 (150-450) k/uL Neutrophils % 68 % Lymphocytes % 20 % Monocytes % 9 % Eosinophils % 0 % Basophils % 0 % Neutrophils # 5.9 (1.3-7.7) k/uL Lymphocytes # 1.8 (1.0-4.8) k/uL Monocytes # 0.8 (0-1.0) k/uL Eosinophils # 0.0 (0-0.7) k/uL Basophils # 0.0 (0-0.2) k/uL Sodium (137-145) mmol/L Potassium (3.5-5.1) mmol/L Chloride (98-107) mmol/L Carbon Dioxide (22-30) mmol/L Anion Gap mmol/L BUN (7-17) mg/dL Creatinine (0.52-1.04) mg/dL Est GFR (MDRD) Af Amer (>60 ml/min/1.73 sqM) Est GFR (MDRD) Non-Af (>60 ml/min/1.73 sqM) Glucose (74-99) mg/dL Calcium (8.4-10.2) mg/dL Total Bilirubin (0.2-1.3) mg/dL AST (14-36) U/L ALT (9-52) U/L Alkaline Phosphatase (38-126) U/L Total Protein (6.3-8.2) g/dL Albumin (3.5-5.0) g/dL Amylase (30-110) U/L Lipase (23-300) U/L Urine Color Urine Appearance (Clear) Urine pH (5.0-8.0) Ur Specific [place] (1.001-1.035) Urine Protein (Negative) Urine Glucose (UA) (Negative) Urine Ketones (Negative) Urine Blood (Negative) Urine Nitrite (Negative) Urine Bilirubin (Negative) Urine Urobilinogen (<2.0) mg/dL Ur Leukocyte Esterase (Negative) Urine RBC (0-5) /hpf Urine WBC (0-5) /hpf Ur Squamous Epith Cells (0-4) /hpf Urine Mucus (None) /hpf Urine HCG, Qual (Not Detectd) Disposition Clinical Impression: Abdominal pain Disposition: HOME SELF-CARE Condition: Good Instructions: Abdominal Pain (ED) Additional Instructions: Please use medication as discussed. Please follow-up with GI/family doctor in the next 2 days of symptoms have not improved. Please return to emergency room if the symptoms increase or worsen or for any other concerns. Prescriptions: predniSONE 10 mg PO DIRECTED 7 Days Referrals: Derek Dobbins MD [Primary Care Provider] - 1-2 days Time of Disposition: 13:13
[2017-03-01] MEDS ORDERED: SODIUM CHLORIDE 0.9% 500 ML BAG ONE (11:36)
[2017-03-01 11:39] LABS: Appearance,Urine Cloudy (Clear); Bilirubin,Urine 1+ (Negative); Glucose,Urine (UA) Negative (Negative); Ketones,Urine 3+ (Negative); Leukocyte Esterase,Urine Negative (Negative); Mucus,Urine Many /hpf; Nitrite,Urine Negative (Negative); Particle Count 12089; Protein,Urine 1+ (Negative); RBC,Urine 15 /hpf (0-5); Specific Gravity,Urine 1.023 (1.001-1.035); Squamous Epithelial Cell,Urine 4 /hpf (0-4); UA Billing (MACRO vs. MICRO) MICRO; WBC,Urine 2 /hpf (0-5)
[2017-03-01 11:59] LABS: RBC 5.58 m/uL (3.80-5.40); WBC 8.7 k/uL (3.8-10.6); WBC (Perox) 8.36
[2017-03-01 12:00] LABS: CH 31.5; CHCM 33.3; HCT 53.1 % (34.0-46.0); HDW 2.17; MCH 30.8 pg (25.0-35.0); MCHC 32.4 g/dL (31.0-37.0); MCV 95.1 fL (80.0-100.0); Mean Platelet Volume 7.7; RDW 14.7 % (11.5-15.5)
[2017-03-01 12:01] LABS: Basophils % (A) 0 %; Eosinophils % (A) 0 %; Luc # (Auto) 0.18; Luc % (Auto) 2; Lymphocytes # (A) 1.8 k/uL (1.0-4.8); Lymphocytes % (A) 20 %; Monocytes # (A) 0.8 k/uL (0-1.0); Monocytes % (A) 9 %; Neutrophils # (A) 5.9 k/uL (1.3-7.7); Neutrophils % (A) 68 %
[2017-03-01 12:02] LABS: HGB 17.2 gm/dL (11.4-16.0)
[2017-03-01 12:10] LABS: ALT 30 U/L (9-52); AST 22 U/L (14-36); Alkaline Phosphatase 94 U/L (38-126); Amylase 49 U/L (30-110); Anion Gap 15 mmol/L; Blood Urea Nitrogen 16 mg/dL (7-17); Calcium 10.8 mg/dL (8.4-10.2); Carbon Dioxide 21 mmol/L (22-30); Chloride 105 mmol/L (98-107); Glucose 98 mg/dL (74-99); Non-African American GFR(MDRD) >60 (>60 ml/min/1.73 sqM); Potassium 4.5 mmol/L (3.5-5.1); Sodium 141 mmol/L (137-145); Total Bilirubin 1.1 mg/dL (0.2-1.3); Total Protein 8.6 g/dL (6.3-8.2)
[2017-03-01] MEDS ORDERED: HYDROmorphone 1 MG/ML 1 ML SYRINGE IVP ONE (13:45)
[2017-03-01] MEDS ORDERED: SODIUM CHLORIDE 0.9% 500 ML IV ONE (13:45)
--- NOTE | 2017-03-01 14:20 | XR ---
EXAMINATION TYPE: XR KUB DATE OF EXAM: 03/01/2017 COMPARISON: NONE HISTORY: Abdominal pain TECHNIQUE: One view abdominal series FINDINGS: There are air-fluid levels. Previous surgery seen in the right upper quadrant. Bowel gas pattern nons pecific. Arthropathy of the hips with probable femoral acetabular impingement. No suspicious calcific ations. IMPRESSION: 1. Dilated bowel loops may been the basis of an enteritis or localized ileus. Partial obstruction not excluded.
[2017-03-01] MEDS ORDERED: methylPREDNISolone SOD SUCCI 125 MG/2 ML VIAL IV STA (14:38)
[2017-03-01 14:57] VITALS: BP 128/68; PULSE 74; RESP 18; TEMP 99.2
== END 2017-03-01 15:03 | disposition home or self-care (01) ==
LOC: EC 10:34
DX: R10.12 Left upper quadrant pain (principal); R10.32 Left lower quadrant pain; R11.2 Nausea with vomiting, unspecified; R19.7 Diarrhea, unspecified; K21.9 Gastro-esophageal reflux disease without esophagitis; M19.90 Unspecified osteoarthritis, unspecified site; M06.9 Rheumatoid arthritis, unspecified; Z79.891 Long term (current) use of opiate analgesic; Z79.899 Other long term (current) drug therapy; Z88.8 Allergy status to other drugs, medicaments and biological substances; Z98.890 Other specified postprocedural states
CPT/HCPCS: 36415; 80053; 82150; 83690; 85025; 81001; 81025; 74000; 99284; 96374; J2930

== ENCOUNTER 2017-03-27 05:08 | Emergency (ER) | payer OTHER ==
[2017-03-27 05:40] LABS: Basophils % (A) 0 %; CH 30.8; CHCM 31.7; Eosinophils # (A) 0.1 k/uL (0-0.7); Eosinophils % (A) 1 %; HCT 51.9 % (34.0-46.0); HGB 16.9 gm/dL (11.4-16.0); Luc # (Auto) 0.17; Luc % (Auto) 2; Lymphocytes # (A) 2.1 k/uL (1.0-4.8); Lymphocytes % (A) 18 %; MCH 31.8 pg (25.0-35.0); MCHC 32.5 g/dL (31.0-37.0); MCV 97.8 fL (80.0-100.0); Mean Platelet Volume 7.2; Monocytes # (A) 0.7 k/uL (0-1.0); Monocytes % (A) 6 %; Neutrophils # (A) 8.3 k/uL (1.3-7.7); Neutrophils % (A) 74 %; RBC 5.31 m/uL (3.80-5.40); RDW 13.7 % (11.5-15.5); WBC 11.3 k/uL (3.8-10.6); WBC (Perox) 12.25
[2017-03-27 05:41] LABS: Appearance,Urine Cloudy (Clear); Bilirubin,Urine 1+ (Negative); Glucose,Urine (UA) Negative (Negative); Ketones,Urine 4+ (Negative); Leukocyte Esterase,Urine Negative (Negative); Mucus,Urine Many /hpf; Nitrite,Urine Negative (Negative); Particle Count 9231; Protein,Urine 1+ (Negative); RBC,Urine 5 /hpf (0-5); Specific Gravity,Urine 1.023 (1.001-1.035); Squamous Epithelial Cell,Urine 11 /hpf (0-4); UA Billing (MACRO vs. MICRO) MICRO; WBC,Urine 2 /hpf (0-5)
[2017-03-27 05:46] LABS: ALT 20 U/L (9-52); AST 28 U/L (14-36); Alkaline Phosphatase 83 U/L (38-126); Amylase 54 U/L (30-110); Anion Gap 13 mmol/L; Blood Urea Nitrogen 13 mg/dL (7-17); Calcium 10.3 mg/dL (8.4-10.2); Carbon Dioxide 21 mmol/L (22-30); Chloride 107 mmol/L (98-107); Glucose 90 mg/dL (74-99); Non-African American GFR(MDRD) >60 (>60 ml/min/1.73 sqM); Potassium 5.6 mmol/L (3.5-5.1); Sodium 141 mmol/L (137-145); Total Bilirubin 1.3 mg/dL (0.2-1.3); Total Protein 8.7 g/dL (6.3-8.2)
[2017-03-27] MEDS ORDERED: MORPHINE SULFATE 4 MG/ML SYRINGE IV STA ×2 (05:57→07:05)
[2017-03-27] MEDS ORDERED: ONDANSETRON 4 MG/2 ML VIAL IVP STA ×2 (05:57→07:05)
[2017-03-27] MEDS ORDERED: SODIUM CHLORIDE 0.9% 1,000 ML IV ONE ×2 (05:58→07:05)
--- NOTE | 2017-03-27 06:03 | ED ---
Abdominal Pain HPI - General Chief Complaint: Abdominal Pain Stated Complaint: Abdominal Pain Time Seen by Provider: 03/27/17 05:17 Source: patient Mode of arrival: ambulatory Limitations: no limitations - History of Present Illness Initial Comments: This patient is a 41-year-old woman with history of chronic intermittent abdominal pains, she states due to Crohn's disease and/or pancreatitis. She states that about 24 hours ago she started having a flareup of her symptoms. She states she began to have pains in the left side of the abdomen, sharp and cramping, the pains have become severe over the course of this. She states that nothing seems to help. The pain gets a bit worse if she tries to eat anything. She also has been having some nausea and a number of episodes of diarrhea. She states probably over 8 episodes, without any blood or dark tarry material. The patient also has some nausea. No fevers or chills. No chest or back pain. MD Complaint: abdominal pain Onset/Timin -: hour(s) Location: LUQ, LLQ Radiation: none Severity: severe Quality: cramping, stabbing Consistency: constant Improves With: nothing Worsens With: nothing Associated Symptoms: nausea, diarrhea - Related Data Home Medications Medication Instructions Recorded Confirmed Alendronate Sodium [Fosamax] 70 mg PO MO 06/07/16 03/27/17 SUMAtriptan SUCCINATE [Imitrex] 100 mg PO DAILY PRN 06/07/16 03/27/17 Omeprazole 20 mg PO BID 08/05/16 03/27/17 Ondansetron [Zofran ODT] 8 mg PO TID PRN 08/18/16 03/27/17 Lipase/Protease/Amylase [Thor Ambrocio 3 cap PO AC-TID 09/14/16 03/27/17 24,000 Units Capsule] Loratadine 10 mg PO DAILY 09/14/16 03/27/17 Montelukast Sodium [Singulair] 10 mg PO HS 09/14/16 03/27/17 Morphine Sulfate ER [Ms Contin] 30 mg PO BID 09/14/16 03/27/17 Morphine Sulfate Ir [MSIR] 15 mg PO TID PRN 09/14/16 03/27/17 Adalimumab [Humira Pen] 40 mg SQ [id number] 12/25/16 03/27/17 Topiramate [Topamax] 50 mg PO BID 02/02/17 03/27/17 Allergies Allergy/AdvReac Type Severity Reaction Status Date / Time metoclopramide [From Reglan] AdvReac LEFT Verified 03/27/17 05:20 ARM/EYE TWITCH Review of Systems ROS Statement: Those systems with pertinent positive or pertinent negative responses have been documented in the HPI. ROS Other: All systems not noted in ROS Statement are negative. Constitutional: Denies: fever, chills Respiratory: Denies: cough, dyspnea Cardiovascular: Denies: chest pain, palpitations, syncope Gastrointestinal: Reports: abdominal pain, nausea, diarrhea. Denies: vomiting, constipation, melena, hematochezia Genitourinary: Denies: dysuria, hematuria Musculoskeletal: Denies: back pain Skin: Denies: rash Neurological: Denies: headache, weakness, numbness Past Medical History Past Medical History: Eye Disorder, GERD/Reflux, Neurologic Disorder, Osteoarthritis (OA), Rheumatoid Arthritis (RA) Additional Past Medical History / Comment(s): chronic pancreatitis, Crohn's disease, blood in stool, diverticulosis, hx ulcers, frequent UTI'S, hx blood clots in arm, hx anemia, hx kidney failure from dehydration 12 yrs ago, neuropathy History of Any Multi-Drug Resistant Organisms: None Reported Past Surgical History: Cholecystectomy Additional Past Surgical History / Comment(s): colonsocopy, EGD, Past Anesthesia/Blood Transfusion Reactions: No Reported Reaction Additional Past Anesthesia/Blood Transfusion Reaction / Comment(s): has had 13 blood transfusion-no reaction Past Psychological History: No Psychological Hx Reported Smoking Status: Never smoker Past Alcohol Use History: None Reported Past Drug Use History: None Reported - Past Family History Father Family Medical History: Myocardial Infarction ([place]) Additional Family Medical History / Comment(s): biological father had hx of drug abuse Mother Family Medical History: No Reported History General Exam Limitations: no limitations General appearance: alert, in no apparent distress Head exam: Present: atraumatic, normocephalic Eye exam: Present: normal appearance. Absent: scleral icterus, conjunctival injection ENT exam: Present: mucous membranes dry Neck exam: Present: normal inspection, full ROM Respiratory exam: Present: normal lung sounds bilaterally. Absent: respiratory distress, wheezes, rales, rhonchi, stridor Cardiovascular Exam: Present: regular rate, normal rhythm, normal heart sounds. Absent: systolic murmur, diastolic murmur, rubs, gallop GI/Abdominal exam: Present: soft, tenderness, hyperactive bowel sounds. Absent : distended, guarding, rebound, rigid, mass, pulsatile mass, hernia Extremities exam: Present: normal inspection, normal capillary refill. Absent: pedal edema, calf tenderness Back exam: Present: normal inspection. Absent: CVA tenderness (R), CVA tenderness (L) Skin exam: Present: warm, dry, intact, normal color. Absent: rash Course Vital Signs 03/27/17 05:11 Temperature 99.3 F Pulse Rate 57 L Respiratory 18 Rate Blood Pressure 110/61 O2 Sat by Pulse 99 Oximetry Medical Decision Making - Lab Data Result diagrams: 03/27/17 05:26 03/27/17 05:26 Lab Results 03/27/17 03/27/17 03/27/17 Range/Units 05:26 05:26 05:26 WBC 11.3 H (3.8-10.6) k/uL RBC 5.31 (3.80-5.40) m/uL Hgb 16.9 H (11.4-16.0) gm/dL Hct 51.9 H (34.0-46.0) % MCV 97.8 (80.0-100.0) fL MCH 31.8 (25.0-35.0) pg MCHC 32.5 (31.0-37.0) g/dL RDW 13.7 (11.5-15.5) % Plt Count 267 (150-450) k/uL Neutrophils % 74 % Lymphocytes % 18 % Monocytes % 6 % Eosinophils % 1 % Basophils % 0 % Neutrophils # 8.3 H (1.3-7.7) k/uL Lymphocytes # 2.1 (1.0-4.8) k/uL Monocytes # 0.7 (0-1.0) k/uL Eosinophils # 0.1 (0-0.7) k/uL Basophils # 0.0 (0-0.2) k/uL Sodium 141 (137-145) mmol/L Potassium 5.6 H (3.5-5.1) mmol/L Chloride 107 (98-107) mmol/L Carbon Dioxide 21 L (22-30) mmol/L Anion Gap 13 mmol/L BUN 13 (7-17) mg/dL Creatinine 0.75 (0.52-1.04) mg/dL Est GFR (MDRD) Af Amer >60 (>60 ml/min/1.73 sqM) Est GFR (MDRD) Non-Af >60 (>60 ml/min/1.73 sqM) Glucose 90 (74-99) mg/dL Calcium 10.3 H (8.4-10.2) mg/dL Total Bilirubin 1.3 (0.2-1.3) mg/dL AST 28 (14-36) U/L ALT 20 (9-52) U/L Alkaline Phosphatase 83 (38-126) U/L Total Protein 8.7 H (6.3-8.2) g/dL Albumin 5.2 H (3.5-5.0) g/dL Amylase 54 (30-110) U/L Lipase 123 (23-300) U/L Urine Color Urine Appearance (Clear) Urine pH (5.0-8.0) Ur Specific [place] (1.001-1.035) Urine Protein (Negative) Urine Glucose (UA) (Negative) Urine Ketones (Negative) Urine Blood (Negative) Urine Nitrite (Negative) Urine Bilirubin (Negative) Urine Urobilinogen (<2.0) mg/dL Ur Leukocyte Esterase (Negative) Urine RBC (0-5) /hpf Urine WBC (0-5) /hpf Ur Squamous Epith Cells (0-4) /hpf Urine Mucus (None) /hpf Urine HCG, Qual Not Detected (Not Detectd) 03/27/17 Range/Units 05:26 WBC (3.8-10.6) k/uL RBC (3.80-5.40) m/uL Hgb (11.4-16.0) gm/dL Hct (34.0-46.0) % MCV (80.0-100.0) fL MCH (25.0-35.0) pg MCHC (31.0-37.0) g/dL RDW (11.5-15.5) % Plt Count (150-450) k/uL Neutrophils % % Lymphocytes % % Monocytes % % Eosinophils % % Basophils % % Neutrophils # (1.3-7.7) k/uL Lymphocytes # (1.0-4.8) k/uL Monocytes # (0-1.0) k/uL Eosinophils # (0-0.7) k/uL Basophils # (0-0.2) k/uL Sodium (137-145) mmol/L Potassium (3.5-5.1) mmol/L Chloride (98-107) mmol/L Carbon Dioxide (22-30) mmol/L Anion Gap mmol/L BUN (7-17) mg/dL Creatinine (0.52-1.04) mg/dL Est GFR (MDRD) Af Amer (>60 ml/min/1.73 sqM) Est GFR (MDRD) Non-Af (>60 ml/min/1.73 sqM) Glucose (74-99) mg/dL Calcium (8.4-10.2) mg/dL Total Bilirubin (0.2-1.3) mg/dL AST (14-36) U/L ALT (9-52) U/L Alkaline Phosphatase (38-126) U/L Total Protein (6.3-8.2) g/dL Albumin (3.5-5.0) g/dL Amylase (30-110) U/L Lipase (23-300) U/L Urine Color Yellow Urine Appearance Cloudy H (Clear) Urine pH 6.0 (5.0-8.0) Ur Specific [place] 1.023 (1.001-1.035) Urine Protein 1+ H (Negative) Urine Glucose (UA) Negative (Negative) Urine Ketones 4+ H (Negative) Urine Blood Trace H (Negative) Urine Nitrite Negative (Negative) Urine Bilirubin 1+ H (Negative) Urine Urobilinogen 3.0 (<2.0) mg/dL Ur Leukocyte Esterase Negative (Negative) Urine RBC 5 (0-5) /hpf Urine WBC 2 (0-5) /hpf Ur Squamous Epith Cells 11 H (0-4) /hpf Urine Mucus Many H (None) /hpf Urine HCG, Qual (Not Detectd) Disposition Clinical Impression: Crohns disease, Chronic abdominal pain Disposition: HOME SELF-CARE Condition: Good Instructions: Abdominal Pain (ED) Referrals: Derke Dobbins MD [Primary Care Provider] - 1-2 days
--- NOTE | 2017-03-27 06:13 | XR ---
EXAM: XR Abdomen, 1 View CLINICAL HISTORY: Reason: abdominal pain. History of Crohn's disease and pancreatitis. TECHNIQUE: Frontal supine view of the abdomen/pelvis. COMPARISON: [facility] on 03/01/2017 FINDINGS: Abdomen: Nonspecific gas-filled small bowel loops in the left upper quadrant and right lower quadrant. No significant air-fluid levels. No free air. Cholecystectomy clips in the right upper quadrant. Bones: Mild degenerative changes of the hips. Soft tissues: Normal. Lower chest: Normal. IMPRESSION: Nonspecific gas-filled small bowel loops in the left upper quadrant and right lower quadrant without definite air-fluid levels. Ileus or enteritis is not excluded. No free air.
[2017-03-27] MEDS ORDERED: HYDROmorphone 1 MG/ML 1 ML SYRINGE IVP STA (07:28)
[2017-03-27 07:57] VITALS: BP 110/70; PULSE 60; RESP 20; TEMP 98.7
== END 2017-03-27 08:17 | disposition home or self-care (01) ==
LOC: EC 05:08
DX: K50.90 Crohn's disease, unspecified, without complications (principal); K21.9 Gastro-esophageal reflux disease without esophagitis; M06.9 Rheumatoid arthritis, unspecified; Z86.69 Personal history of other diseases of the nervous system and sense organs; Z90.49 Acquired absence of other specified parts of digestive tract; Z79.891 Long term (current) use of opiate analgesic; Z79.899 Other long term (current) drug therapy; Z88.8 Allergy status to other drugs, medicaments and biological substances
CPT/HCPCS: 99284 ×2; 96374 ×2; 96375 ×3; 96376 ×3; 96361 ×3; 36415; 80053; 82150; 83690; 85025; 81001; 81025; 74000; J2270; J2405; J1170

== ENCOUNTER 2017-03-27 11:04 | Observation (INO) | payer OTHER ==
[2017-03-27] MEDS ORDERED: SODIUM CHLORIDE 0.9% 1,000 ML IV ONE (12:07)
[2017-03-27] MEDS ORDERED: RX INFO: IV CONTRAST WAS GIVEN 1 EACH MISC MISCELLANE PRN (12:07)
[2017-03-27] MEDS ORDERED: ONDANSETRON 4 MG/2 ML VIAL IVP STA (12:07)
[2017-03-27] MEDS: HYDROmorphone 1 MG/ML 1 ML SYRINGE IVP STA ×2 (12:30→12:42)
[2017-03-27] MEDS ORDERED: HYDROmorphone 0.5 MG/0.5 ML SYRINGE IVP STA (12:40)
[2017-03-27 13:00] LABS: Basophils % (A) 0 %; CH 31.8; CHCM 32.8; Eosinophils % (A) 0 %; HCT 43.6 % (34.0-46.0); Luc # (Auto) 0.16; Luc % (Auto) 2; Lymphocytes # (A) 1.8 k/uL (1.0-4.8); Lymphocytes % (A) 21 %; MCH 31.2 pg (25.0-35.0); MCHC 32.1 g/dL (31.0-37.0); MCV 97.4 fL (80.0-100.0); Mean Platelet Volume 7.4; Monocytes # (A) 0.5 k/uL (0-1.0); Monocytes % (A) 6 %; Neutrophils % (A) 71 %; RBC 4.48 m/uL (3.80-5.40); RDW 14.6 % (11.5-15.5); WBC 8.4 k/uL (3.8-10.6); WBC (Perox) 8.76
[2017-03-27 13:11] LABS: ALT 27 U/L (9-52); AST 18 U/L (14-36); Alkaline Phosphatase 77 U/L (38-126); Anion Gap 12 mmol/L; Blood Urea Nitrogen 12 mg/dL (7-17); Calcium 8.9 mg/dL (8.4-10.2); Carbon Dioxide 18 mmol/L (22-30); Chloride 109 mmol/L (98-107); Glucose 84 mg/dL (74-99); Non-African American GFR(MDRD) >60 (>60 ml/min/1.73 sqM); Potassium 3.8 mmol/L (3.5-5.1); Sodium 139 mmol/L (137-145); Total Bilirubin 0.7 mg/dL (0.2-1.3); Total Protein 6.6 g/dL (6.3-8.2)
[2017-03-27] MEDS ORDERED: NALOXONE 0.4 MG/ML 1 ML VIAL IV PRN (13:55)
[2017-03-27] MEDS ORDERED: LORazepam 2 MG/ML INJ IV PRN (13:55)
--- NOTE | 2017-03-27 14:00 | ED ---
Nausea/Vomiting/Diarrhea HPI - General Chief complaint: Nausea/Vomiting/Diarrhea Stated complaint: released earlier, still not feeling well Time Seen by Provider: 03/27/17 11:18 Source: patient Mode of arrival: ambulatory Limitations: no limitations - History of Present Illness Initial comments: 41-year-old female with past medical history of Crohn's and chronic pancreatic duct presented for evaluation of epigastric and left lower quadrant abdominal pain. She states that she was seen at this facility earlier this morning and was seen for these similar symptoms. After her workup she was offered admission versus outpatient treatment and agreed with plan to go home and manage her patient as an outpatient. However for the 3 hours she was discharged she had intractable nausea and vomiting and was unable to even keep down water. She states the left lower quadrant pain is consistent with her previous Crohn's disease however she hasn't had a CAT scan to verify whether or not she has diverticulitis on her previously confirm diverticulosis. Her epigastric abdominal pain is consistent with her previous pink otitis however she states that could just be due to her continuous vomiting. She denies any constipation or diarrhea or any other symptoms at this time. - Related Data Home Medications Medication Instructions Recorded Confirmed Alendronate Sodium [Fosamax] 70 mg PO MO 06/07/16 03/27/17 SUMAtriptan SUCCINATE [Imitrex] 100 mg PO DAILY PRN 06/07/16 03/27/17 Omeprazole 20 mg PO BID 08/05/16 03/27/17 Ondansetron [Zofran ODT] 8 mg PO TID PRN 08/18/16 03/27/17 Lipase/Protease/Amylase [Thor Ambrocio 3 cap PO AC-TID 09/14/16 03/27/17 24,000 Units Capsule] Loratadine 10 mg PO DAILY 09/14/16 03/27/17 Montelukast Sodium [Singulair] 10 mg PO HS 09/14/16 03/27/17 Morphine Sulfate ER [Ms Contin] 30 mg PO BID 09/14/16 03/27/17 Morphine Sulfate Ir [MSIR] 15 mg PO BID PRN 09/14/16 03/27/17 Adalimumab [Humira Pen] 40 mg SQ [id number] 12/25/16 03/27/17 Topiramate [Topamax] 50 mg PO BID 02/02/17 03/27/17 Allergies Allergy/AdvReac Type Severity Reaction Status Date / Time metoclopramide [From Reglan] AdvReac LEFT Verified 03/27/17 14:23 ARM/EYE TWITCH Review of Systems ROS Statement: Those systems with pertinent positive or pertinent negative responses have been documented in the HPI. ROS Other: All systems not noted in ROS Statement are negative. Constitutional: Denies: fever, chills Eyes: Denies: eye pain, eye discharge ENT: Denies: ear pain, throat pain Respiratory: Denies: wheezes, hemoptysis Cardiovascular: Denies: chest pain, dyspnea on exertion Endocrine: Denies: fatigue, heat or cold intolerance Gastrointestinal: Reports: abdominal pain, nausea, vomiting. Denies: diarrhea, constipation, hematemesis, melena, hematochezia Genitourinary: Denies: dysuria, hematuria Musculoskeletal: Denies: back pain, arthralgia, myalgia Skin: Denies: rash, lesions Neurological: Denies: headache, weakness Psychiatric: Denies: anxiety, depression Hematological/Lymphatic: Denies: easy bleeding, easy bruising Past Medical History Past Medical History: Eye Disorder, GERD/Reflux, Neurologic Disorder, Osteoarthritis (OA), Rheumatoid Arthritis (RA) Additional Past Medical History / Comment(s): chronic pancreatitis, Crohn's disease, blood in stool, diverticulosis, hx ulcers, frequent UTI'S, hx blood clots in arm, hx anemia, hx kidney failure from dehydration 12 yrs ago, neuropathy History of Any Multi-Drug Resistant Organisms: None Reported Past Surgical History: Cholecystectomy Additional Past Surgical History / Comment(s): colonsocopy, EGD, Past Anesthesia/Blood Transfusion Reactions: No Reported Reaction Additional Past Anesthesia/Blood Transfusion Reaction / Comment(s): has had 13 blood transfusion-no reaction Past Psychological History: No Psychological Hx Reported Smoking Status: Never smoker Past Alcohol Use History: None Reported Past Drug Use History: None Reported - Past Family History Father Family Medical History: Myocardial Infarction ([place]) Additional Family Medical History / Comment(s): biological father had hx of drug abuse Mother Family Medical History: No Reported History General Exam Limitations: no limitations General appearance: alert, in distress Head exam: Present: atraumatic, normocephalic, normal inspection Eye exam: Present: normal appearance, EOMI. Absent: scleral icterus ENT exam: Present: normal exam, normal oropharynx Neck exam: Present: normal inspection. Absent: tenderness Respiratory exam: Present: normal lung sounds bilaterally. Absent: respiratory distress, wheezes, rales Cardiovascular Exam: Present: regular rate, normal rhythm. Absent: bradycardia , tachycardia GI/Abdominal exam: Present: soft, tenderness. Absent: distended, guarding, rebound, rigid Rectal exam: Present: deferred Extremities exam: Present: normal inspection, full ROM Back exam: Present: normal inspection, full ROM Neurological exam: Present: alert, altered, oriented X3, normal gait Psychiatric exam: Present: normal affect, normal mood Skin exam: Present: warm, dry, intact, normal color. Absent: rash Course Vital Signs 03/27/17 03/27/17 11:08 14:04 Temperature 99.5 F Pulse Rate 77 63 Respiratory 18 18 Rate Blood Pressure 109/72 117/69 O2 Sat by Pulse 99 95 Oximetry Medical Decision Making - Medical Decision Making 41-year-old female with past medical history of Crohn's disease and agreed that is presented for evaluation of epigastric abdominal pain for quadrant abdominal pain for which she was seen earlier this morning and discharged with an attempt for outpatient management. On physical examination she appears to be in mild discomfort, holding her abdomen and rocking back and forth. Abdomen is tender to palpation left lower quadrant and epigastric abdomen however there are no peritoneal signs of guarding, rigidity, or rebound. The remainder of the physical exam is benign with the exception of appearing mildly dehydrated. Concern for pink otitis versus Crohn's disease flare versus diverticulitis and will obtain CT abdomen and pelvis, labs, and provide IV fluids and pain control. Also given Zofran. Lipase elevated and is consistent with acute on chronic pancreatitis. The remainder of her labs revealed no significant abnormalities. On reevaluation the patient was having some improvement in her symptoms however she has not gone a CT yet. She was informed of all results at this time will admit the patient further treatment and evaluation. Dr. Healy accepted the admission without further request. He was informed of the pending CT and that he would be called if there is anything acutely abnormal. He agreed with this plan of care. Admission order placed in bed request submitted. - Lab Data Result diagrams: 03/27/17 12:28 03/27/17 12:28 Lab Results 10/08/17 10/08/17 10/08/17 Range/Units 12:28 12:28 12:28 WBC 8.4 (3.8-10.6) k/uL RBC 4.48 (3.80-5.40) m/uL Hgb 14.0 (11.4-16.0) gm/dL Hct 43.6 (34.0-46.0) % MCV 97.4 (80.0-100.0) fL MCH 31.2 (25.0-35.0) pg MCHC 32.1 (31.0-37.0) g/dL RDW 14.6 (11.5-15.5) % Plt Count 219 (150-450) k/uL Neutrophils % 71 % Lymphocytes % 21 % Monocytes % 6 % Eosinophils % 0 % Basophils % 0 % Neutrophils # 6.0 (1.3-7.7) k/uL Lymphocytes # 1.8 (1.0-4.8) k/uL Monocytes # 0.5 (0-1.0) k/uL Eosinophils # 0.0 (0-0.7) k/uL Basophils # 0.0 (0-0.2) k/uL Sodium 139 (137-145) mmol/L Potassium 3.8 (3.5-5.1) mmol/L Chloride 109 H (98-107) mmol/L Carbon Dioxide 18 L (22-30) mmol/L Anion Gap 12 mmol/L BUN 12 (7-17) mg/dL Creatinine 0.70 (0.52-1.04) mg/dL Est GFR (MDRD) Af Amer >60 (>60 ml/min/1.73 sqM) Est GFR (MDRD) Non-Af >60 (>60 ml/min/1.73 sqM) Glucose 84 (74-99) mg/dL Plasma Lactic Acid [place] 1.4 (0.7-2.0) mmol/L Calcium 8.9 (8.4-10.2) mg/dL Total Bilirubin 0.7 (0.2-1.3) mg/dL AST 18 (14-36) U/L ALT 27 (9-52) U/L Alkaline Phosphatase 77 (38-126) U/L Troponin I (0.000-0.034) ng/mL NT-Pro-B Natriuret Pep pg/mL Total Protein 6.6 (6.3-8.2) g/dL Albumin 4.0 (3.5-5.0) g/dL Lipase 191 (23-300) U/L HCG, Quant <2.4 mIU/mL 03/27/17 03/27/17 Range/Units 12:28 12:28 WBC (3.8-10.6) k/uL RBC (3.80-5.40) m/uL Hgb (11.4-16.0) gm/dL Hct (34.0-46.0) % MCV (80.0-100.0) fL MCH (25.0-35.0) pg MCHC (31.0-37.0) g/dL RDW (11.5-15.5) % Plt Count (150-450) k/uL Neutrophils % % Lymphocytes % % Monocytes % % Eosinophils % % Basophils % % Neutrophils # (1.3-7.7) k/uL Lymphocytes # (1.0-4.8) k/uL Monocytes # (0-1.0) k/uL Eosinophils # (0-0.7) k/uL Basophils # (0-0.2) k/uL Sodium (137-145) mmol/L Potassium (3.5-5.1) mmol/L Chloride (98-107) mmol/L Carbon Dioxide (22-30) mmol/L Anion Gap mmol/L BUN (7-17) mg/dL Creatinine (0.52-1.04) mg/dL Est GFR (MDRD) Af Amer (>60 ml/min/1.73 sqM) Est GFR (MDRD) Non-Af (>60 ml/min/1.73 sqM) Glucose (74-99) mg/dL Plasma Lactic Acid [place] (0.7-2.0) mmol/L Calcium (8.4-10.2) mg/dL Total Bilirubin (0.2-1.3) mg/dL AST (14-36) U/L ALT (9-52) U/L Alkaline Phosphatase (38-126) U/L Troponin I <0.012 (0.000-0.034) ng/mL NT-Pro-B Natriuret Pep 479 pg/mL Total Protein (6.3-8.2) g/dL Albumin (3.5-5.0) g/dL Lipase (23-300) U/L HCG, Quant mIU/mL 03/27/17 23:04 Normal sinus rhythm with sinus arrhythmia and left atrial management. Disposition Clinical Impression: Acute on chronic pancreatitis, Intractable nausea and vomiting Disposition: ADMITTED IP TO THIS [facility] Decision to Admit Reason: Admit from EC Decision Date: 03/27/17 Decision Time: 14:00
[2017-03-27] MEDS ORDERED: MORPHINE SULFATE 4 MG/ML SYRINGE IVP PRN (14:18)
--- NOTE | 2017-03-27 14:34 | CT ---
EXAMINATION TYPE: CT abdomen pelvis w con DATE OF EXAM: 03/27/2017 COMPARISON: 12/25/2016 HISTORY: Crohns, pancreatitis CT DLP: 338.3 mGycm Automated exposure control for dose reduction was used. TECHNIQUE: Helical acquisition of images was performed from the lung bases through the pelvis. CONTRAST: Performed without Oral Contrast and with IV Contrast, patient injected with 100 mL of Omnipaque 300. FINDINGS: Lung bases are clear of infiltrate. There is no pleural effusion. There is mild atelectasis at the le ft posterior lung base. There is no pericardial effusion. Liver shows no focal defect. Spleen appears normal. There is no sign of a pancreatic mass. There is m ildly ectatic pancreatic duct that measures 4 mm. There are clips from cholecystectomy. There is no adrenal mass. There are bilateral renal cortical cysts that measure up to 1.5 cm. There i s no hydronephrosis. There is no retroperitoneal adenopathy. I see no intestinal wall thickening. There are no dilated loops. Bladder distends smoothly. Uterus is anteverted. There is a 3 cm cyst on the left ovary.. Appendix appears normal. Bony structures appear intact. There is mildly dilated left sided pelvic veins. IMPRESSION: STABLE MILD PANCREATIC DUCTAL ECTASIA COULD RELATE TO OLD INFLAMMATORY DISEASE. NO EVIDENCE OF PANCRE ATITIS. MILD SUBSEGMENTAL ATELECTASIS OR SCARRING IS STABLE AT THE POSTERIOR LUNG BASES. MILD LEFT-SIDED PELV IC VARICES ARE STABLE. THERE IS A NEW LEFT SIDE 3 CM OVARIAN CYST.
[2017-03-27 14:50] VITALS: BMI 17.3
[2017-03-27] MEDS: MORPHINE SULFATE 2 MG/ML SYRINGE IVP PRN ×4 (15:28→23:54)
[2017-03-27] MEDS: ONDANSETRON 4 MG/2 ML VIAL IVP PRN ×2 (17:44→23:54)
[2017-03-27] MEDS: SODIUM CHLORIDE 0.9% 1,000 ML IV SCH (17:53)
[2017-03-28] MEDS: MORPHINE SULFATE 2 MG/ML SYRINGE IVP PRN ×7 (03:32→21:22)
--- NOTE | 2017-03-28 05:28 | P.CONS ---
History of Present Illness - Reason for Consult Consult date: 03/27/17 Crohn's disease - History of Present Illness The patient is a 41-year-old female who was diagnosed with Crohn's disease at age 16 and was diagnosed with chronic pancreatitis 7 years ago likely related to Imuran and sulfa-based drugs and she also has rheumatoid arthritis since age 17. The patient has been on humira for the last 2-1/2 years which was interrupted after she moved back to [place] at the end of April 2016. I performed an upper endoscopy and colonoscopy in August of this year as the patient has daily pain, nausea and vomiting and frequent loose/mushy bowel movements up to 10 times per day while she was awaiting the restart of Humira. There was evidence of deep remission at that time with no evidence of active inflammation endoscopically and was normal by biopsy. Her humira has been restarted around 3 months ago. Today, the patient presented to the emergency department for evaluation of epigastric and left lower quadrant abdominal pain. She states that she was seen at this facility earlier this morning and was seen for these similar symptoms. After her workup she was offered admission versus outpatient treatment and agreed with plan to go home and manage her patient as an outpatient. However for the 3 hours she was discharged she had intractable nausea and vomiting and was unable to even keep down water. She states the left lower quadrant pain is consistent with her previous Crohn's disease however she hasn't had a CAT scan to verify whether or not she has diverticulitis on her previously confirm diverticulosis. Her epigastric abdominal pain is consistent with her previous pink otitis however she states that could just be due to her continuous vomiting. She denies any constipation or diarrhea or any other symptoms at this time. CT of the abdomen showed mild pancreatic ductal ectasia but no acute pancreatitis. There was no intestinal wall thickening. Because of her symptoms and the intractable pain and diarrhea she was admitted for further management. Review of Systems Constitutional: Denied fever, chills and unintentional weight loss Neurologic: No headaches, double vision or sensory or motor changes Cardiopulmonary: Denies chest pains, shortness of breath or palpitations Genitourinary: No hematuria, dysuria or frequency Skin: No rashes Musculoskeletal: No joint swelling or pain Endocrine: No diabetes or thyroid disease Psychiatric: No anxiety or depression Past Medical History Past Medical History: Eye Disorder, GERD/Reflux, Neurologic Disorder, Osteoarthritis (OA), Rheumatoid Arthritis (RA) Additional Past Medical History / Comment(s): chronic pancreatitis, Crohn's disease, blood in stool, diverticulosis, hx ulcers, frequent UTI'S, hx blood clots in arm, hx anemia, hx kidney failure from dehydration 12 yrs ago, neuropathy History of Any Multi-Drug Resistant Organisms: None Reported Past Surgical History: Cholecystectomy Additional Past Surgical History / Comment(s): colonsocopy, EGD, Past Anesthesia/Blood Transfusion Reactions: No Reported Reaction Additional Past Anesthesia/Blood Transfusion Reaction / Comm: has had 13 blood transfusion-no reaction Past Psychological History: No Psychological Hx Reported Additional Psychological History / Comment(s): . Smoking Status: Never smoker Past Alcohol Use History: None Reported Past Drug Use History: None Reported Additional Drug Use History / Comment(s): not in several months - Past Family History Father Family Medical History: Myocardial Infarction ([place]) Additional Family Medical History / Comment(s): biological father had hx of drug abuse Mother Family Medical History: Hypertension Medications and Allergies Home Medications Medication Instructions Recorded Confirmed Type Alendronate Sodium [Fosamax] 70 mg PO MO 06/07/16 03/27/17 History SUMAtriptan SUCCINATE [Imitrex] 100 mg PO DAILY PRN 06/07/16 03/27/17 History Omeprazole 20 mg PO BID 08/05/16 03/27/17 History Ondansetron [Zofran ODT] 8 mg PO TID PRN 08/18/16 03/27/17 History Lipase/Protease/Amylase [Creon Dr 3 cap PO AC-TID 09/14/16 03/27/17 History 24,000 Units Capsule] Loratadine 10 mg PO DAILY 09/14/16 03/27/17 History Montelukast Sodium [Singulair] 10 mg PO HS 09/14/16 03/27/17 History Morphine Sulfate ER [Ms Contin] 30 mg PO BID 09/14/16 03/27/17 History Morphine Sulfate Ir [MSIR] 15 mg PO BID PRN 09/14/16 03/27/17 History Adalimumab [Humira Pen] 40 mg SQ [id number] 12/25/16 03/27/17 History Topiramate [Topamax] 50 mg PO BID 02/02/17 03/27/17 History Allergies Allergy/AdvReac Type Severity Reaction Status Date / Time metoclopramide [From Reglan] AdvReac LEFT Verified 03/27/17 14:23 ARM/EYE TWITCH Physical Exam Vitals: Vital Signs Temp Pulse Pulse Resp BP Pulse Ox 03/27/17 15:00 98.6 F 67 16 97 03/27/17 14:04 63 18 117/69 95 03/27/17 11:08 99.5 F 77 18 109/72 99 Intake and Output 03/27/17 03/27/17 03/27/17 06:59 14:59 22:59 Other: Voiding Method Toilet Weight 45.813 kg 45.813 kg Patient Weight 03/28/17 06:59 Weight 45.813 kg General appearance: The patient is alert, oriented, in no acute distress. HET: Head is normocephalic and atraumatic. Pupils are equal and reactive. Oropharynx is clear without lesions. Neck: Supple without lymphadenopathy. Trachea midline. Heart: S1 S2. Regular rate and rhythm. Lungs: No crackles or wheezes are heard. Abdomen: Soft, nontender, nondistended with bowel sounds. No peritoneal signs. No palpable organomegaly or masses. Extremities: Normal skin color and turgor. No cyanosis, rash, ulceration, clubbing, or edema. Radial and pedal pulses are 2/4 bilaterally. Neurological: No focal deficits. Strength and sensation are grossly intact. Results CBC & Chem 7: 03/27/17 12:28 03/27/17 12:28 Labs: Abnormal Lab Results - Last 24 Hours (Table) 03/27/17 Range/Units 12:28 Chloride 109 H (98-107) mmol/L Carbon Dioxide 18 L (22-30) mmol/L Assessment and Plan Plan: 41-year-old female with history of Crohn's disease, chronic pancreatitis and rheumatoid arthritis is admitted for abdominal pains and diarrhea as well as nausea and vomiting. The possibility of gastroenteritis should be considered. A superimposed infectious process including C. difficile infection to be kept in mind. No suggestion on CT of active inflammatory bowel disease or any complications. Will monitor her course closely with you and plan based on her overall progress.
--- NOTE | 2017-03-28 05:29 | HP ---
HISTORY AND PHYSICAL DATE OF ADMISSION: 03/27/2017 PRESENTING COMPLAINT: Abdominal pain. HISTORY OF PRESENTING COMPLAINT: This is a 41-year-old patient who follows with Dr. Dobbins and Dr. Nagy from GI. The patient's chronic stable medical conditions include GERD, osteoarthritis, rheumatoid arthritis, chronic pancreatitis, diverticulosis and peripheral neuropathy. The patient is on Humira, has followed with Dr. Kinsey in the past. Patient presents with vomiting, diarrhea, and abdominal pain. Admitted for the same. Denies any obvious fevers. Feels weak, tired, run down. Not able to eat much. REVIEW OF SYSTEMS: CONSTITUTIONAL: Tired. HEENT: None. RESPIRATORY: None. CARDIOVASCULAR: None. GASTROINTESTINAL: As above. GENITOURINARY: None. MUSCULOSKELETAL: Pain in different joints. DERMATOLOGICAL: None. HEMATOLOGIC: None. LYMPHATIC: None. PSYCHIATRY: Some anxiety. NEUROLOGICAL: None. PAST HISTORY: Past history of Crohn disease, rheumatoid arthritis, chronic pancreatitis, protein calorie malnutrition, chronic pain syndrome. PAST SURGICAL HISTORY: Cholecystectomy. SOCIAL HISTORY: No smoking. No alcohol. Lives . FAMILY HISTORY: Hypertension. HOME MEDICATIONS: 1. Topamax 50 mg p.o. b.i.d. 2. Imitrex 100 mg daily p.r.n. 3. Zofran 8 mg p.o. t.i.d. p.r.n. 4. Omeprazole 20 mg b.i.d. 5. Morphine sulfate 15 mg p.o. b.i.d. p.r.n. 6. MS Contin ER 30 mg b.i.d. 7. Singulair 10 mg p.o. q.h.s. 8. Claritin 10 mg p.o. daily. 9. Creon 24,000, three capsules p.o. t.i.d. 10.Fosamax 70 mg p.o. on Mondays. 11.Humira 40 mg subcutaneously every 14 days. ALLERGIES: Allergies to REGLAN. PHYSICAL EXAMINATION: On examination, temperature 98, pulse 64, respirations 18, blood pressure 109/79, pulse ox 100% on room air. GENERAL APPEARANCE: Thin built, BMI 17.3, lying in bed, slightly anxious appearing. EYES: Pupils equal. Conjunctivae normal. HENT: Oral cavity normal. NECK: JVD not raised. Mass not palpable. RESPIRATORY: Effort normal. LUNGS: Fair air entry. CARDIOVASCULAR: First and second sounds normal. No edema. ABDOMEN: Diffuse tenderness. No guarding or rigidity. Liver and spleen not palpable. LYMPHATIC: No lymph node palpable in the neck or axillae. PSYCHIATRY: Alert and oriented x3. Mood and affect slightly anxious-appearing. NEUROLOGICAL: Pupils equal, Cranial nerves grossly intact. Power and sensation grossly intact. INVESTIGATIONS: White count 8.4, hemoglobin 14.0. Potassium 3.8 BUN and creatinine normal. Lipase is normal. CT scan of the abdomen nonspecific. ASSESSMENT: 1. Possible acute exacerbation of Crohn disease for which patient is on Humira. 2. Chronic rheumatoid arthritis. 3. Chronic pancreatitis. 4. Moderate protein calorie malnutrition. 5. Decreased muscle mass. 6. Loss of subcutaneous fat. PLAN: GI was consulted. The patient is on IV morphine for pain control, IV fluids. We will put the patient on lactated Ringer's. Other home medications will be resumed. Care was discussed with the patient. Questions were answered. MMODL / IJN: [id number] /
[2017-03-28] MEDS ORDERED: MORPHINE SULFATE IR 15 MG TABLET PO PRN (08:04)
[2017-03-28] MEDS ORDERED: SUMAtriptan SUCCINATE 50 MG TAB PO PRN (08:04)
[2017-03-28] MEDS ORDERED: NON-FORMULARY DRUG (Alendronate Sodium [Fosamax] 70 MG) PO SCH (08:15)
[2017-03-28 08:20] LABS: Basophils % (A) 0 %; CH 31.5; CHCM 31.8; Eosinophils # (A) 0.1 k/uL (0-0.7); Eosinophils % (A) 1 %; HCT 42.7 % (34.0-46.0); HDW 2.17; HGB 14.1 gm/dL (11.4-16.0); Luc # (Auto) 0.17; Luc % (Auto) 2; Lymphocytes # (A) 2.4 k/uL (1.0-4.8); Lymphocytes % (A) 29 %; MCH 32.8 pg (25.0-35.0); MCHC 32.9 g/dL (31.0-37.0); MCV 99.5 fL (80.0-100.0); Mean Platelet Volume 8.1; Monocytes # (A) 0.5 k/uL (0-1.0); Monocytes % (A) 6 %; Neutrophils # (A) 5.2 k/uL (1.3-7.7); Neutrophils % (A) 63 %; RBC 4.29 m/uL (3.80-5.40); RDW 14.3 % (11.5-15.5); WBC 8.3 k/uL (3.8-10.6)
[2017-03-28 08:31] LABS: Anion Gap 12 mmol/L; Blood Urea Nitrogen 13 mg/dL (7-17); Calcium 8.6 mg/dL (8.4-10.2); Carbon Dioxide 16 mmol/L (22-30); Chloride 111 mmol/L (98-107); Glucose 54 mg/dL (74-99); Non-African American GFR(MDRD) >60 (>60 ml/min/1.73 sqM); Potassium 3.7 mmol/L (3.5-5.1); Sodium 139 mmol/L (137-145)
[2017-03-28] MEDS ORDERED: ADALIMUMAB 80 MG/1.6 ML KIT SQ SCH (09:00)
[2017-03-28] MEDS: TOPIRAMATE 25 MG TAB PO SCH ×2 (09:06→21:22)
[2017-03-28] MEDS: PANTOPRAZOLE 40 MG TABLET PO SCH ×2 (09:06→18:39)
[2017-03-28] MEDS: LORATADINE 10 MG TAB PO SCH (09:06)
[2017-03-28] MEDS: ONDANSETRON 4 MG/2 ML VIAL IVP PRN ×2 (09:09→18:39)
[2017-03-28] MEDS: SODIUM CHLORIDE 0.9% 1,000 ML IV SCH (12:08)
--- NOTE | 2017-03-28 18:08 | P.PN ---
Progress Note - Text Progress Note Date: 03/28/17 DATE OF SERVICE: 03/28/2017 PRESENTING COMPLAINT: abdominal pain HISTORY OF PRESENT ILLNESS: 41-year-old female with chronic pancreatitis diverticulosis on Humira presents with vomiting nausea diarrhea and abdominal pain. Admitted for the same. INTERVAL HISTORY: 03/28/2017: patient seen in follow-up, lying in bed appears comfortable states she is nauseated, diet is currently nothing by mouth. Ambulatory in the room and abraham ways, asking about advancing the diet, states she still has abdominal pain. REVIEW OF SYSTEMS: Done for constitutional ,cardiovascular, GI, pulmonary with relevant findings as above. CURRENT MEDICATIONS Claritin 10 mg by mouth daily, Singulair 10 mg by mouth at at bedtime, morphine sulfate 4 mg IV push every 2 hours, morphine sulfate 15 mg by mouth twice a day , Zofran 4 mg IV push every 8 hours, Protonix 40 mg by mouth twice a day, normal saline IV 50 mL an hour continuous,Imitrex 100 mg by mouth daily, Topamax 50 mg by mouth twice a day. PHYSICAL EXAM VITAL SIGNS: temperature 98.0, pulse 60, respiratory rate 16, blood pressure 98/55, oxygen saturation 99% on room air. GENERAL APPEARANCE: Lying in bed, not in distress. EYES: Pupils equal. Conjunctiva normal. NECK: JVD not raised. Mass not palpable. RESPIRATORY: Respiratory effort normal. Lungs clear to auscultation. CARDIOVASCULAR: First and second sounds normal. No edema. ABDOMEN: Soft. Liver and spleen not palpable. mild tenderness no guarding or rigidity. No mass palpable. PSYCHIATRY: Alert and oriented x3. Mood and affect normal. INVESTIGATIONS: CBC and BMP unremarkable ASSESSMENT: -possible acute exacerbation of Crohn's disease for which patient is on Humira. -Chronic rheumatoid arthritis. -Chronic pancreatitis. -Moderate protein calorie malnutrition, -Decreased muscle mass. -Loss of subcutaneous fat. PLAN: IV fluids continue, diet advanced to clear liquids we'll see how she does with this. IV morphine for pain control. Plan of care discussed with the patient at the bedside we'll continue to follow closely. LOG SNAKER statement: Patient was seen and examined by nurse practitioner Hiwot Leos and all elements of the case discussed with attending Dr. Healy
[2017-03-28] MEDS: MONTELUKAST 10 MG TAB PO SCH (21:22)
[2017-03-29] MEDS: SODIUM BICARBONATE TAB 650 MG TAB PO SCH ×4 (00:03→20:28)
[2017-03-29] MEDS: MORPHINE SULFATE 2 MG/ML SYRINGE IVP PRN ×6 (01:48→21:39)
--- NOTE | 2017-03-29 06:25 | PN ---
PROGRESS NOTE DATE OF SERVICE: 03/28/2017 ATTENDING NOTE: This patient was seen and examined by me. I discussed with my nurse practitioner, Ms. Leos. Patient admitted with exacerbation of Crohn disease and may be an element of pancreatitis. Feels a bit better. Has been out of bed. PHYSICAL EXAMINATION: On examination, afebrile, pulse 60, blood pressure 98/55. ABDOMEN: Soft. Decreased tenderness. Lungs are clear. White count 8.3, hemoglobin 14.1. Bicarb 16. Glucose 54. ASSESSMENT: 1. Acute exacerbation of Crohn disease, slowly improving. 2. Hypoglycemia from decreased oral intake. 3. Metabolic acidosis. PLAN: Patient will be started on clear liquids, that should correct the hypoglycemia and encourage to ambulate. Also add sodium bicarb tablets. MMODL / IJN: [id number] /
[2017-03-29] MEDS: TOPIRAMATE 25 MG TAB PO SCH ×2 (07:55→20:28)
[2017-03-29] MEDS: PANTOPRAZOLE 40 MG TABLET PO SCH ×2 (07:55→17:05)
[2017-03-29] MEDS: LORATADINE 10 MG TAB PO SCH (07:55)
[2017-03-29] MEDS: SODIUM CHLORIDE 0.9% 1,000 ML IV SCH (08:02)
--- NOTE | 2017-03-29 10:09 | P.PN ---
Subjective Progress Note Date: 03/29/17 Principal diagnosis: Abdominal pain history of Crohn's and Imuran-induced pancreatitis Admitted with diffuse abdominal pain nausea vomiting diarrhea with history of Crohn's and Imuran-induced pancreatitis. Diarrhea resolved. Reports weakness this morning. No desire to drink clear liquids too sweet. Afebrile. Pain still present but improved generalized across the midabdomen. Afebrile. Objective - Vital Signs Vital signs: Vital Signs Temp 98.3 F 03/29/17 07:00 Pulse 69 03/29/17 08:00 Resp 16 03/29/17 08:00 BP 111/59 03/29/17 07:00 Pulse Ox 100 03/29/17 07:00 Intake & Output 03/28/17 03/29/17 03/29/17 18:59 06:59 18:59 Intake Total 400 400 Balance 400 400 Weight 45.813 kg Intake: IV 400 400 Sodium Chloride 0.9% 1, 400 400 000 ml @ 50 mls/hr IV . Q20H SUDHIR Rx#:[id number] Other: Voiding Method Toilet Toilet # Voids 3 1 - Exam General appearance: The patient is alert, oriented, in no acute distress. HET: Head is normocephalic and atraumatic. Pupils are equal and reactive. Oropharynx is clear without lesions. Neck: Supple without lymphadenopathy. Trachea midline. Heart: S1 S2. Regular rate and rhythm. Lungs: No crackles or wheezes are heard. Abdomen: Soft, diffuse mild tenderness across mid abdomen, nondistended with bowel sounds. No peritoneal signs. No palpable organomegaly or masses. Extremities: Normal skin color and turgor. No cyanosis, rash, ulceration, clubbing, or edema. Radial and pedal pulses are 2/4 bilaterally. Neurological: No focal deficits. Strength and sensation are grossly intact. - Labs CBC & Chem 7: 03/28/17 07:21 03/28/17 07:21 Labs: Microbiology - Last 24 Hours (Table) 03/27/17 12:28 Blood Culture - Preliminary Blood No Growth after 24 hours Assessment and Plan (1) Abdominal pain Narrative/Plan: Possible gastritis possible gastritis. Status: Acute (2) History of pancreatitis Status: Resolved (3) Intractable nausea and vomiting Status: Acute (4) Crohns disease Status: Chronic Plan: 1. Clear liquid/full liquid diet tray has many sweet substances which is exacerbating the patient's nausea. Will try a low fiber diet for lunch; crackers and soup saltines toast with peanut butter etc. If she is able to tolerate diet discharge per medicine. She may follow up in the GI office in 1- 2 weeks after discharge for reevaluation. Supportive measures. No further workup at this time. Assessment and plan a care discussed with Dr. Bonilla.
[2017-03-29] MEDS: ONDANSETRON 4 MG/2 ML VIAL IVP PRN (13:36)
--- NOTE | 2017-03-29 16:44 | P.PN ---
Progress Note - Text Progress Note Date: 03/29/17 DATE OF SERVICE: 03/29/2017 PRESENTING COMPLAINT: abdominal pain HISTORY OF PRESENT ILLNESS: 41-year-old female with chronic pancreatitis diverticulosis on Humira presents with vomiting nausea diarrhea and abdominal pain. Admitted for the same. INTERVAL HISTORY: 03/29/2017: Patient seen in follow-up, likely bed friends at the bedside, appears comfortable though she attempted to eat Jell-O and was nauseated and threw up. Currently on a clear/full liquid diet, advance to low fiber per GI. Ambulatory in the room and abraham ways, moved her bowels. 03/28/2017: patient seen in follow-up, lying in bed appears comfortable states she is nauseated, diet is currently nothing by mouth. Ambulatory in the room and abraham ways, asking about advancing the diet, states she still has abdominal pain. REVIEW OF SYSTEMS: Done for constitutional ,cardiovascular, GI, pulmonary with relevant findings as above. CURRENT MEDICATIONS Claritin 10 mg by mouth daily, Singulair 10 mg by mouth at at bedtime, morphine sulfate 4 mg IV push every 2 hours, morphine sulfate 15 mg by mouth twice a day , Zofran 4 mg IV push every 8 hours, Protonix 40 mg by mouth twice a day, normal saline IV 50 mL an hour continuous,Imitrex 100 mg by mouth daily, Topamax 50 mg by mouth twice a day. PHYSICAL EXAM VITAL SIGNS: Temperature 98.3, pulse 69, respirations 16, blood pressure 111/59, oxygen saturation 100% on room air. GENERAL APPEARANCE: Lying in bed, not in distress. EYES: Pupils equal. Conjunctiva normal. NECK: JVD not raised. Mass not palpable. RESPIRATORY: Respiratory effort normal. Lungs clear to auscultation. CARDIOVASCULAR: First and second sounds normal. No edema. ABDOMEN: Soft. Liver and spleen not palpable. mild tenderness no guarding or rigidity. No mass palpable. PSYCHIATRY: Alert and oriented x3. Mood and affect normal. INVESTIGATIONS: None new ASSESSMENT: -possible acute exacerbation of Crohn's disease for which patient is on Humira, improving -Chronic rheumatoid arthritis. -Chronic pancreatitis. -Moderate protein calorie malnutrition, -Decreased muscle mass. -Loss of subcutaneous fat. PLAN: IV fluids continue, diet advanced to low fiber we'll see how she does with this. Plan of care discussed with the patient at the bedside we'll continue to follow closely. BEAM DOFFER statement: Patient was seen and examined by nurse practitioner Hiwot Leos and all elements of the case discussed with attending Dr. Healy
[2017-03-29] MEDS: MONTELUKAST 10 MG TAB PO SCH (20:28)
[2017-03-29 22:44] VITALS: RESP 16
--- NOTE | 2017-03-29 23:04 | PN ---
PROGRESS NOTE DATE OF SERVICE: 03/29/2017. ATTENDING NOTE: This patient was seen and examined by me. I discussed with my nurse practitioner, Ms. Leos. The patient's abdominal pain is better, did tolerate some Jell-O, has been out of bed. No nausea or vomiting. EXAMINATION: Afebrile, blood pressure 111/59. LUNGS: Clear. ABDOMEN: Soft. Decreased tenderness. White count 8.3. ASSESSMENT: 1. Acute exacerbation of Crohn disease, getting better. 2. Multiple other medical problems. Continue current medication and treatment plan. Discontinue the patient's morphine, advanced the diet. The patient is already on full liquids. Advance to soft plan and see how she tolerates. MMODL / IJN: [id number] /
[2017-03-30] MEDS: MORPHINE SULFATE 2 MG/ML SYRINGE IVP PRN ×3 (00:48→08:42)
[2017-03-30 07:42] VITALS: BP 125/66; PULSE 65; TEMP 97.9
[2017-03-30] MEDS: SODIUM CHLORIDE 0.9% 1,000 ML IV SCH (07:46)
[2017-03-30] MEDS: PANTOPRAZOLE 40 MG TABLET PO SCH (07:47)
[2017-03-30] MEDS: TOPIRAMATE 25 MG TAB PO SCH (07:48)
[2017-03-30] MEDS: SODIUM BICARBONATE TAB 650 MG TAB PO SCH (07:48)
[2017-03-30] MEDS: LORATADINE 10 MG TAB PO SCH (07:48)
[2017-03-30 08:40] LABS: ALT 28 U/L (9-52); AST 18 U/L (14-36); Alkaline Phosphatase 65 U/L (38-126); Anion Gap 11 mmol/L; Blood Urea Nitrogen 7 mg/dL (7-17); Calcium 9.2 mg/dL (8.4-10.2); Carbon Dioxide 20 mmol/L (22-30); Chloride 111 mmol/L (98-107); Glucose 83 mg/dL (74-99); Non-African American GFR(MDRD) >60 (>60 ml/min/1.73 sqM); Potassium 3.8 mmol/L (3.5-5.1); Sodium 142 mmol/L (137-145); Total Bilirubin 1.1 mg/dL (0.2-1.3); Total Protein 6.5 g/dL (6.3-8.2)
[2017-03-30] MEDS ORDERED: LOPERAMIDE 2 MG CAP PO PRN (12:16)
--- NOTE | 2017-03-30 21:35 | DS ---
DISCHARGE SUMMARY DATE OF ADMISSION: 03/27/17. DATE OF DISCHARGE: 03/30/17. FINAL DIAGNOSIS: 1. Possible acute exacerbation of Crohn disease. 2. Chronic rheumatoid arthritis. 3. Chronic pancreatitis. 4. Moderate protein calorie malnutrition along with decreased muscle mass and loss of subcutaneous fat. 5. Possible gastritis. 6. Possible acute gastroenteritis present on admission. 7. Metabolic acidosis. HOSPITAL COURSE: This patient presented with nausea, vomiting and diarrhea, received pain medication, made n.p.o. Did get better. By the time of discharge was tolerating a light diet. Up and about in the hallway. Pain greatly improved. The patient was afebrile with normal white count. CONSULTATIONS: Dr. Sharlene Bonilla/Dr. Nagy from Gastroenterology who okayed the patient to be discharged. PHYSICAL EXAMINATION: On exam abdomen is soft. Minimal tenderness. Lungs are clear. DISCHARGE MEDICATIONS: 1. Fosamax 70 mg p.o. on Tuesday. 2. Imitrex 100 mg daily p.r.n. 3. Prilosec 20 mg p.o. b.i.d. 4. Zofran 8 mg q.i.d. p.r.n. 5. Creon 24,000 three capsules p.o. a.c. t.i.d. 6. Claritin 10 mg p.o. daily. 7. Singulair 10 mg p.o. q.h.s. 8. MS Contin 30 mg p.o. b.i.d. 9. Morphine sulfate IR 15 mg p.o. b.i.d. p.r.n. 10.Humira 40 mg subcu 14 days. 11.Topamax 50 mg p.o. b.i.d. 12.Imodium 2 mg q.6h p.r.n. 13.Sodium bicarb 610 mg p.o. t.i.d. Follow up with Dr. Nagy on 04/05/2017, follow up with Dr. Dobbins on 04/04/17. MMODL / SAYRAN: [id number] /
== END 2017-03-30 12:38 | disposition home or self-care (01) ==
LOC: EC 11:04 → 5MS5E 13:59 → INTOOBSV 13:59
PROVIDERS: ADMIT Hospitalist; ATTEND Hospitalist
DX: R11.2 Nausea with vomiting, unspecified (principal); R19.7 Diarrhea, unspecified; K50.90 Crohn's disease, unspecified, without complications; M06.9 Rheumatoid arthritis, unspecified; K21.9 Gastro-esophageal reflux disease without esophagitis; M19.91 Primary osteoarthritis, unspecified site; K86.1 Other chronic pancreatitis; E86.0 Dehydration; G62.9 Polyneuropathy, unspecified; E44.0 Moderate protein-calorie malnutrition; E87.2 Acidosis; E16.2 Hypoglycemia, unspecified; T45.1X5A Adverse effect of antineoplastic and immunosuppressive drugs, initial encounter; G89.4 Chronic pain syndrome; Z79.899 Other long term (current) drug therapy; Z79.83 Long term (current) use of bisphosphonates; Z90.49 Acquired absence of other specified parts of digestive tract; Z86.718 Personal history of other venous thrombosis and embolism; Z87.440 Personal history of urinary (tract) infections; Z88.8 Allergy status to other drugs, medicaments and biological substances; Z79.891 Long term (current) use of opiate analgesic; Z68.1 Body mass index [BMI] 19.9 or less, adult
CPT/HCPCS: 96376 ×5; 96375 ×2; 96361; 96374; 99284; 99285; 36415; 93005; 83880; 80053 ×2; 80048; 82150; 83605; 83690; 84484; 85025 ×2; 81001; 81025; 84702; 87040; 74000; 74177; G0378 ×4; J2270 ×5; J2405 ×3; J1170 ×2; Q9967

== ENCOUNTER 2017-06-26 | Observation (INO) | payer OTHER ==
[2017-06-26] MEDS ORDERED: KETOROLAC 30 MG/ML 1 ML VIAL IVP STA (00:19)
[2017-06-26] MEDS ORDERED: SODIUM CHLORIDE 0.9% 1,000 ML IV ONE (00:19)
[2017-06-26] MEDS ORDERED: RX INFO: IV CONTRAST WAS GIVEN 1 EACH MISC MISCELLANE PRN (00:19)
[2017-06-26] MEDS ORDERED: MORPHINE SULFATE 5 MG/ML SYRINGE IV ONE (00:19)
[2017-06-26] MEDS ORDERED: ONDANSETRON 4 MG/2 ML VIAL IVP STA (00:20)
--- NOTE | 2017-06-26 00:24 | ED ---
Abdominal Pain HPI - General Chief Complaint: Abdominal Pain Stated Complaint: Abd Pain/Vomiting Time Seen by Provider: 06/26/17 00:14 Source: patient, family Mode of arrival: ambulatory Limitations: no limitations - History of Present Illness Initial Comments: Patient is a 42-year-old female with a history of pancreatitis who presents with a chief complaint of epigastric pain. Patient states that the pain is burning and sharp in nature. There is some radiation to her back. The patient states that has been going on for about 2 hours. She says it feels similar to the last time that she had pancreatitis. Patient states that her symptoms are aggravated by eating and drinking. There are no alleviating factors. Timing is constant. The patient has a surgical history of cholecystectomy. She has a medical history of Crohn's disease. She has medical ALLERGIES to Reglan. - Related Data Home Medications Medication Instructions Recorded Confirmed Alendronate Sodium [Fosamax] 70 mg PO MO 06/07/16 06/26/17 SUMAtriptan SUCCINATE [Imitrex] 100 mg PO DAILY PRN 06/07/16 06/26/17 Omeprazole 20 mg PO BID 08/05/16 06/26/17 Ondansetron [Zofran ODT] 8 mg PO TID PRN 08/18/16 06/26/17 Lipase/Protease/Amylase [Thor Ambrocio 3 cap PO AC-TID 09/14/16 06/26/17 24,000 Units Capsule] Loratadine 10 mg PO DAILY 09/14/16 06/26/17 Montelukast Sodium [Singulair] 10 mg PO HS 09/14/16 06/26/17 Morphine Sulfate ER [Ms Contin] 30 mg PO BID 09/14/16 06/26/17 Morphine Sulfate Ir [MSIR] 15 mg PO BID PRN 09/14/16 06/26/17 Adalimumab [Humira Pen] 40 mg SQ [id number] 12/25/16 06/26/17 Topiramate [Topamax] 50 mg PO BID 02/02/17 06/26/17 Ibuprofen [Motrin] 400 mg PO TID PRN 04/01/17 06/26/17 Previous Rx's Medication Instructions Recorded Loperamide [Imodium] 2 mg PO Q6H PRN #1 capsule 03/30/17 Sodium Bicarbonate Tab 650 mg PO TID #60 tab 03/30/17 Ondansetron Odt [Zofran Odt] 4 mg PO Q8HR PRN #12 tab 06/26/17 Allergies Allergy/AdvReac Type Severity Reaction Status Date / Time metoclopramide [From Reglan] AdvReac Twitching Verified 06/26/17 00:11 Review of Systems ROS Statement: Those systems with pertinent positive or pertinent negative responses have been documented in the HPI. ROS Other: All systems not noted in ROS Statement are negative. Gastrointestinal: Reports: abdominal pain, nausea, vomiting Past Medical History Past Medical History: Eye Disorder, GERD/Reflux, Neurologic Disorder, Osteoarthritis (OA), Rheumatoid Arthritis (RA) Additional Past Medical History / Comment(s): chronic pancreatitis, Crohn's disease, blood in stool, diverticulosis, hx ulcers, frequent UTI'S, hx blood clots in arm, hx anemia, hx kidney failure from dehydration 12 yrs ago, neuropathy History of Any Multi-Drug Resistant Organisms: None Reported Past Surgical History: Cholecystectomy Additional Past Surgical History / Comment(s): colonsocopy, EGD, Past Anesthesia/Blood Transfusion Reactions: No Reported Reaction Additional Past Anesthesia/Blood Transfusion Reaction / Comment(s): has had 13 blood transfusion-no reaction Past Psychological History: No Psychological Hx Reported Smoking Status: Never smoker Past Alcohol Use History: None Reported Past Drug Use History: None Reported - Past Family History Father Family Medical History: Myocardial Infarction ([place]) Additional Family Medical History / Comment(s): biological father had hx of drug abuse Mother Family Medical History: Hypertension General Exam Limitations: no limitations General appearance: alert, in no apparent distress Head exam: Present: atraumatic, normocephalic ENT exam: Present: mucous membranes moist Respiratory exam: Present: normal lung sounds bilaterally Cardiovascular Exam: Present: regular rate, normal rhythm GI/Abdominal exam: Present: soft, tenderness (Patient has exquisite tenderness to palpation in the epigastric region.). Absent: distended Back exam: Present: normal inspection Neurological exam: Present: alert, oriented X3 Psychiatric exam: Present: normal affect, normal mood Skin exam: Present: warm, dry, intact Course Vital Signs 06/26/17 00:08 Temperature 97 F L Pulse Rate 53 L Respiratory 18 Rate Blood Pressure 109/68 O2 Sat by Pulse 100 Oximetry Medical Decision Making - Medical Decision Making Patient presents with a chief complaint of epigastric pain. He has a history of pancreatitis. Initial evaluation, vital signs are stable however patient is having exquisite epigastric tenderness. Abdomen is otherwise not peritoneal. Patient will have basic labs including a lipase. She was given Toradol and morphine for pain, and Zofran 4 nausea. Patient will have a computed tomography scan of the abdomen and pelvis with contrast. EKG performed at 12: 57 AM shows sinus bradycardia with a rate of 39 bpm. Patient is asymptomatic at this time. EKG is otherwise nonspecific. Patient's chart was reviewed, the patient has numerous visits for similar complaints. Maps was reviewed, and shows that the patient has numerous recent prescriptions for morphine sulfate including 90 30 mg tablets dispensed on 05/30/2017 and 60 15 mg tablets dispensed on 06/14/2017. Lab evaluation of this patient shows leukocytosis of 15,000 white blood cells. Labs are otherwise unremarkable. Lipase is within normal limits at 91. 2:01 AM CAT scan shows no acute process. At this time, patient's evaluation is all within normal limits. Reevaluation, patient still complains of excruciating pain. When discussing the lab results and discharge, the patient and her became very angry saying that there has to be something wrong. The patient states that her nausea is still uncontrolled and that she continues to vomit. Patient will be placed on strict nothing by mouth, IV hydration, and nonnarcotic remedies for abdominal pain. She'll be placed in observation for intractable nausea and vomiting. Patient will be signed out to Dr. Walters for morning call to Dr. Healy with consult to Dr. Jones. It is my opinion that the patient displays drug-seeking behavior. Further, that this patient should be proceeded with caution. - Lab Data Result diagrams: 06/26/17 00:35 06/26/17 00:35 Lab Results 06/26/17 06/26/17 Range/Units 00:35 00:35 WBC 15.6 H (3.8-10.6) k/uL RBC 5.29 (3.80-5.40) m/uL Hgb 16.6 H (11.4-16.0) gm/dL Hct 50.9 H (34.0-46.0) % MCV 96.2 (80.0-100.0) fL MCH 31.4 (25.0-35.0) pg MCHC 32.6 (31.0-37.0) g/dL RDW 13.1 (11.5-15.5) % Plt Count 276 (150-450) k/uL Neutrophils % 82 % Lymphocytes % 12 % Monocytes % 5 % Eosinophils % 1 % Basophils % 0 % Neutrophils # 12.7 H (1.3-7.7) k/uL Lymphocytes # 1.9 (1.0-4.8) k/uL Monocytes # 0.7 (0-1.0) k/uL Eosinophils # 0.2 (0-0.7) k/uL Basophils # 0.0 (0-0.2) k/uL Sodium 144 (137-145) mmol/L Potassium 4.6 (3.5-5.1) mmol/L Chloride 104 (98-107) mmol/L Carbon Dioxide 25 (22-30) mmol/L Anion Gap 15 mmol/L BUN 15 (7-17) mg/dL Creatinine 0.90 (0.52-1.04) mg/dL Est GFR (MDRD) Af Amer >60 (>60 ml/min/1.73 sqM) Est GFR (MDRD) Non-Af >60 (>60 ml/min/1.73 sqM) Glucose 119 H (74-99) mg/dL Calcium 11.0 H (8.4-10.2) mg/dL Total Bilirubin 1.0 (0.2-1.3) mg/dL AST 21 (14-36) U/L ALT 24 (9-52) U/L Alkaline Phosphatase 84 (38-126) U/L Total Protein 8.4 H (6.3-8.2) g/dL Albumin 4.8 (3.5-5.0) g/dL Lipase 91 (23-300) U/L Disposition Clinical Impression: Intractable nausea and vomiting Disposition: ADMITTED IP TO THIS HOSP Condition: Good Prescriptions: Ondansetron Odt [Zofran Odt] 4 mg PO Q8HR PRN #12 tab PRN Reason: Nausea Referrals: Derek Dobbins MD [Primary Care Provider] - 1-2 days - Out of Hospital Transfer - Req. Specs Out of Hospital Transfer - Requested Specifics: Other Non-Acute
[2017-06-26 00:46] LABS: Basophils % (A) 0 %; Eosinophils # (A) 0.2 k/uL (0-0.7); Eosinophils % (A) 1 %; HCT 50.9 % (34.0-46.0); HGB 16.6 gm/dL (11.4-16.0); Lymphocytes # (A) 1.9 k/uL (1.0-4.8); Lymphocytes % (A) 12 %; MCH 31.4 pg (25.0-35.0); MCHC 32.6 g/dL (31.0-37.0); MCV 96.2 fL (80.0-100.0); Mean Platelet Volume 7.3; Monocytes # (A) 0.7 k/uL (0-1.0); Monocytes % (A) 5 %; Neutrophils # (A) 12.7 k/uL (1.3-7.7); Neutrophils % (A) 82 %; Platelet Count 276 k/uL (150-450); RBC 5.29 m/uL (3.80-5.40); RDW 13.1 % (11.5-15.5); WBC 15.6 k/uL (3.8-10.6)
[2017-06-26 00:59] LABS: ALT 24 U/L (9-52); AST 21 U/L (14-36); Albumin 4.8 g/dL (3.5-5.0); Alkaline Phosphatase 84 U/L (38-126); Anion Gap 15 mmol/L; Blood Urea Nitrogen 15 mg/dL (7-17); Carbon Dioxide 25 mmol/L (22-30); Chloride 104 mmol/L (98-107); Glucose 119 mg/dL (74-99); Lipase 91 U/L (23-300); Potassium 4.6 mmol/L (3.5-5.1); Sodium 144 mmol/L (137-145); Total Protein 8.4 g/dL (6.3-8.2)
--- NOTE | 2017-06-26 01:49 | CT ---
EXAM: CT Abdomen and Pelvis With Intravenous Contrast CLINICAL HISTORY: Reason: Pain TECHNIQUE: Axial computed tomography images of the abdomen and pelvis with intravenous contrast. CTDI is 9.1 mGy and DLP is 315.30 mGy-cm. This CT exam was performed using one or more of the following dose reduction techniques: automated exposure control, adjustment of the mA and/or kV according to patient size, and/or use of iterative reconstruction technique. Coronal and sagittal reformatted images were created and reviewed. COMPARISON: 03/27/2017 FINDINGS: Lower thorax: Stable appearing linear atelectasis or scarring left posterior basal segment. ABDOMEN: Liver: Unremarkable. No mass. Gallbladder and bile ducts: Cholecystectomy. No ductal dilation. Pancreas: Unremarkable. No mass. No ductal dilation. Spleen: Unremarkable. No splenomegaly. Adrenals: Unremarkable. No mass. Kidneys and ureters: Water density cyst superior aspect of the left kidney is stable measuring 16 mm. The 10 mm cyst posterior cortex of the right kidney is stable with probable subcentimeter cysts inferior aspect both kidneys, stable in appearance. No calcifications or hydronephrosis noted. Stomach and bowel: Scattered diverticulosis noted ascending and transverse colon. No CT evidence of diverticulitis. No obstruction. Appendix: No findings to suggest acute appendicitis. PELVIS: Bladder: Unremarkable. No mass. Reproductive: Unremarkable as visualized. ABDOMEN and PELVIS: Intraperitoneal space: Unremarkable. No free air. No significant fluid collection. Bones/joints: No acute fracture. No dislocation. Soft tissues: Unremarkable. Vasculature: Unremarkable. No abdominal aortic aneurysm. Lymph nodes: Unremarkable. No enlarged lymph nodes. IMPRESSION: Appendix is normal. Scattered diverticulosis in the proximal colon. No CT evidence for diverticulitis. Stable bilateral renal cysts.
[2017-06-26] MEDS ORDERED: DICYCLOMINE 10 MG/ML 2 ML AMP IM STA (02:03)
[2017-06-26] MEDS ORDERED: diphenhydrAMINE 50 MG/ML 1 ML VIAL IVP STA (02:03)
[2017-06-26] MEDS ORDERED: HALOPERIDOL LACTATE 5 MG/ML 1 ML VIAL IVP STA (02:06)
[2017-06-26] MEDS ORDERED: NALOXONE 0.4 MG/ML 1 ML VIAL IV PRN (02:07)
[2017-06-26] MEDS: LACTATED RINGERS 1,000 ML IV SCH ×2 (03:27→16:41)
[2017-06-26] MEDS: ONDANSETRON 4 MG/2 ML VIAL IVP PRN ×2 (06:25→13:51)
[2017-06-26] MEDS: KETOROLAC 30 MG/ML 1 ML VIAL IVP PRN ×2 (06:25→11:57)
[2017-06-26 16:24] VITALS: RESP 16
[2017-06-26] MEDS ORDERED: ONDANSETRON ODT 8 MG TAB.RAPDIS PO PRN (16:36)
[2017-06-26] MEDS ORDERED: MORPHINE SULFATE IR 15 MG TABLET PO PRN (16:36)
[2017-06-26] MEDS ORDERED: SUMAtriptan SUCCINATE 50 MG TAB PO PRN (16:36)
[2017-06-26] MEDS ORDERED: LOPERAMIDE 2 MG CAP PO PRN (16:36)
[2017-06-26] MEDS: MORPHINE SULFATE ER 30 MG TABLET PO SCH ×2 (16:57→20:54)
[2017-06-26] MEDS: ENOXAPARIN 40 MG/0.4 ML SYRINGE SQ SCH (17:53)
[2017-06-26] MEDS: PANTOPRAZOLE 40 MG TABLET PO SCH (17:54)
--- NOTE | 2017-06-26 18:27 | HP ---
HISTORY AND PHYSICAL DATE OF ADMISSION: 06/26/17 PRESENTING COMPLAINT: Abdominal pain. HISTORY OF PRESENTING COMPLAINT: This is a 42-year-old patient follows with Dr. Dobbins, well known to me. Also follows with Dr. Nagy from Gastroenterology. Chronic stable medical conditions include GERD, osteoarthritis, rheumatoid arthritis, chronic pancreatitis, diverticulosis and peripheral neuropathy. The patient did see Dr. Nagy 2 days ago and everything was good. The patient presented with increasing pain in the epigastric area. The patient has chronic abdominal pain. Denied any nausea. Denies any vomiting. Some nausea. No fever. The patient's bowel pattern is not changed. Appetite when down. The patient's weight has not changed she states and has remained stable. REVIEW OF SYSTEMS: Constitutional: Tired. HEENT none. Respiratory none. Cardiovascular none. Gastrointestinal as above. Genitourinary: None. MUSCULOSKELETAL: Pain in different joints. Dermatological and hematologic, lymphatic none. Psychiatry none. Neurological none. PAST MEDICAL HISTORY: Of Crohn disease, rheumatoid arthritis, chronic pancreatitis, protein calorie malnutrition, chronic pain syndrome. PAST SURGICAL HISTORY: Cholecystectomy. SOCIAL HISTORY: No smoking. No alcohol. FAMILY HISTORY: Myocardial infarction. HOME MEDICATIONS: Topamax 50 mg p.o. b.i.d., Imitrex 100 mg p.o. b.i.d. daily p.r.n., Zofran 8 mg p.o. t.i.d. p.r.n., Prilosec 20 mg p.o. b.i.d., morphine sulfate immediate release 50 mg b.i.d. p.r.n. extended release 30 mg p.o. t.i.d., Singulair 10 mg p.o. q.h.s., Claritin 10 mg p.o. daily. Imodium 2 mg q.6h p.r.n., Creon 24,000, three capsules p.o. a.c. t.i.d., Motrin 400 mg p.o. t.i.d. p.r.n., Fosamax 70 mg p.o. on Tuesday, Humira 40 mg subcu every 2 weeks. ALLERGIES: REGLAN. PHYSICAL EXAMINATION: Temperature 99, pulse 55, respiration 14, blood pressure 102/59, pulse ox 98% on room air. General appearance: Thin built. BMI 17.2 lying in bed, not in distress. EYES: Pupils equal. Conjunctivae normal. HEENT: Oral cavity normal. Neck: JVD not raised. Mass not palpable. Respiratory effort normal. Lungs fair entry. Cardiovascular 1st and 2nd sounds normal. No edema. Abdomen: Mild epigastric tenderness. No guarding, rigidity. Liver and spleen not palpable. Lymphatics: No lymph nodes palpable in the neck or axilla. PSYCHIATRY: Alert and oriented x3. Mood and affect slightly anxious-appearing. Neurological: Pupils equal. Cranial nerves grossly intact. Power and sensation grossly intact. Musculoskeletal: Some wasting of the muscles. INVESTIGATIONS: White count 15.6, hemoglobin 16.6, potassium 4.6. BUN and creatinine is normal. ASSESSMENT: 1. Possible acute on chronic gastritis. The patient does take Motrin and Fosamax. This could be also low-grade pancreatitis flare up. The patient's lipase is normal, which can happen in chronic pancreatitis. 2. Chronic Crohn disease. 3. Chronic rheumatoid arthritis. 4. Chronic pancreatitis. 5. Moderate protein-calorie malnutrition from decreased oral intake. BMI is 17.2. PLAN: Patient's home medications will be continued. The patient is made n.p.o. Patient's pain is better. We will try clear liquids. Care was discussed with the patient. Also discussed with Dr. Nagy from Gastroenterology. See how the patient progresses. Copy to Dr. Dobbins. MMKJL / IJN: [id number] /
[2017-06-26] MEDS: LIPASE 5,000/PROTEASE 17,000/AMYLASE 27,0000 PO SCH (18:30)
[2017-06-26] MEDS: TOPIRAMATE 25 MG TAB PO SCH (20:11)
[2017-06-26] MEDS ORDERED: MONTELUKAST 10 MG TAB PO SCH (21:00)
[2017-06-27] MEDS: LACTATED RINGERS 1,000 ML IV SCH (06:37)
[2017-06-27 07:40] LABS: Anion Gap 9 mmol/L; Blood Urea Nitrogen 17 mg/dL (7-17); Calcium 8.9 mg/dL (8.4-10.2); Carbon Dioxide 23 mmol/L (22-30); Chloride 106 mmol/L (98-107); Glucose 78 mg/dL (74-99); Lipase 92 U/L (23-300); Potassium 3.6 mmol/L (3.5-5.1); Sodium 138 mmol/L (137-145)
[2017-06-27 08:00] LABS: Basophils % (A) 0 %; Eosinophils % (A) 1 %; HCT 39.1 % (34.0-46.0); Lymphocytes # (A) 2.4 k/uL (1.0-4.8); Lymphocytes % (A) 37 %; MCH 31.4 pg (25.0-35.0); MCHC 32.8 g/dL (31.0-37.0); MCV 95.7 fL (80.0-100.0); Monocytes # (A) 0.5 k/uL (0-1.0); Monocytes % (A) 7 %; Neutrophils # (A) 3.5 k/uL (1.3-7.7); Neutrophils % (A) 53 %; Platelet Count 156 k/uL (150-450); RBC 4.09 m/uL (3.80-5.40); RDW 13.1 % (11.5-15.5); WBC 6.5 k/uL (3.8-10.6)
[2017-06-27] MEDS: ONDANSETRON 4 MG/2 ML VIAL IVP PRN (08:14)
[2017-06-27] MEDS: MORPHINE SULFATE ER 30 MG TABLET PO SCH ×2 (08:14→17:29)
[2017-06-27] MEDS: PANTOPRAZOLE 40 MG TABLET PO SCH (08:15)
[2017-06-27] MEDS: ENOXAPARIN 40 MG/0.4 ML SYRINGE SQ SCH (08:16)
[2017-06-27] MEDS: TOPIRAMATE 25 MG TAB PO SCH (08:16)
[2017-06-27] MEDS: LIPASE 5,000/PROTEASE 17,000/AMYLASE 27,0000 PO SCH ×2 (08:57→12:06)
[2017-06-27] MEDS ORDERED: LORATADINE 10 MG TAB PO SCH (09:00)
--- NOTE | 2017-06-27 11:17 | P.CONS ---
History of Present Illness - Reason for Consult Consult date: 06/26/17 Abdominal pain - History of Present Illness The patient is a 42-year-old female who was diagnosed with Crohn's disease at age 16 and was diagnosed with chronic pancreatitis 7 years ago likely related to Imuran and sulfa-based drugs and she also has rheumatoid arthritis since age 17. The patient has been on humira for the last 2-1/2 years which was interrupted after she moved back to [place] at the end of April 2016. I performed an upper endoscopy and colonoscopy in August 2016 as the patient has daily pain, nausea and vomiting and frequent loose/mushy bowel movements up to 10 times per day while she was awaiting the restart of Humira. There was evidence of deep remission at that time with no evidence of active inflammation endoscopically and she had a normal by biopsy. Her humira has been restarted around 5 months ago. I have seen the patient in the office last week and she has been doing fairly well. Her last hospitalization prior to this one was in March 2017. The patient presented to the emergency department for evaluation of epigastric a few hours duration. She indicated to me that she was having nausea, vomiting and diarrhea as well. Her liver enzymes and pancreas enzymes were normal. CT of the abdomen and pelvis showed scattered proximal sigmoid diverticulosis. The patient had prior cholecystectomy. Review of Systems 12 point review of systems is, otherwise, not repeating Past Medical History Past Medical History: Eye Disorder, GERD/Reflux, Neurologic Disorder, Osteoarthritis (OA), Rheumatoid Arthritis (RA) Additional Past Medical History / Comment(s): chronic pancreatitis, Crohn's disease, blood in stool, diverticulosis, hx ulcers, frequent UTI'S, hx blood clots in arm, hx anemia, hx kidney failure from dehydration 12 yrs ago, neuropathy, cataracts History of Any Multi-Drug Resistant Organisms: None Reported Past Surgical History: Cholecystectomy Additional Past Surgical History / Comment(s): colonsocopy, EGD, Past Anesthesia/Blood Transfusion Reactions: No Reported Reaction Additional Past Anesthesia/Blood Transfusion Reaction / Comm: has had 13 blood transfusion-no reaction Smoking Status: Never smoker - Past Family History Father Family Medical History: Myocardial Infarction ([place]) Additional Family Medical History / Comment(s): biological father had hx of drug abuse Mother Family Medical History: Hypertension Medications and Allergies Home Medications Medication Instructions Recorded Confirmed Type Alendronate Sodium [Fosamax] 70 mg PO MO 12/19/16 01/07/18 History SUMAtriptan SUCCINATE [Imitrex] 100 mg PO DAILY PRN 06/07/16 06/26/17 History Omeprazole 20 mg PO BID 08/05/16 06/26/17 History Ondansetron [Zofran ODT] 8 mg PO TID PRN 08/18/16 06/26/17 History Lipase/Protease/Amylase [Thor Dr 3 cap PO AC-TID 09/14/16 06/26/17 History 24,000 Units Capsule] Loratadine 10 mg PO DAILY 09/14/16 06/26/17 History Montelukast Sodium [Singulair] 10 mg PO HS 09/14/16 06/26/17 History Morphine Sulfate ER [Ms Contin] 30 mg PO TID 09/14/16 06/26/17 History Morphine Sulfate Ir [MSIR] 15 mg PO BID PRN 09/14/16 06/26/17 History Adalimumab [Humira Pen] 40 mg SQ [id number] 12/25/16 06/26/17 History Topiramate [Topamax] 50 mg PO BID 02/02/17 06/26/17 History Loperamide [Imodium] 2 mg PO Q6H PRN #1 capsule 03/30/17 06/26/17 Rx Ibuprofen [Motrin] 400 mg PO TID PRN 04/01/17 06/26/17 History Allergies Allergy/AdvReac Type Severity Reaction Status Date / Time metoclopramide [From Reglan] AdvReac Twitching Verified 06/26/17 08:21 Physical Exam Vitals: Vital Signs Temp Pulse Pulse Resp BP BP Pulse Ox 06/26/17 08:00 99.0 F 55 L 14 102/59 98 06/26/17 03:14 18 06/26/17 03:03 97.8 F 52 L 18 121/72 100 06/26/17 02:28 61 16 115/59 100 06/26/17 00:08 97 F L 53 L 18 109/68 100 Intake and Output 06/25/17 06/26/17 06/26/17 22:59 06:59 14:59 Intake Total 625 Balance 625 Intake: IV 625 Lactated Ringers 1,000 ml 625 @ 75 mls/hr IV .[id number] Rx#:[id number] Oral 0 Other: Voiding Method Toilet Toilet # Voids 1 Weight 45.359 kg General: Appeared stated age, very pleasant, in no acute distress Head and neck: Normocephalic and atraumatic. Conjunctivae pink and sclerae not icteric. Mucous membranes moist and pink. No masses in the neck or tracheal shifts Lungs: Clear to auscultation with no dullness to percussion Heart: Regular, no abnormal sounds, murmurs, gallops or friction rubs Abdomen: Soft, no masses or organomegalies. minimal tenderness in the epigastric area. No guarding or rebound. Bowel sounds present Extremities: No clubbing, cyanosis or edema Neurologic: Alert and oriented 3. Cranial nerves grossly intact. No gross sensory or motor abnormalities Results CBC & Chem 7: 06/27/17 06:49 06/27/17 06:49 Labs: Abnormal Lab Results - Last 24 Hours (Table) 06/26/17 06/26/17 Range/Units 00:35 00:35 WBC 15.6 H (3.8-10.6) k/uL Hgb 16.6 H (11.4-16.0) gm/dL Hct 50.9 H (34.0-46.0) % Neutrophils # 12.7 H (1.3-7.7) k/uL Glucose 119 H (74-99) mg/dL Calcium 11.0 H (8.4-10.2) mg/dL Total Protein 8.4 H (6.3-8.2) g/dL Assessment and Plan Assessment: Epigastric pain, nausea, vomiting and diarrhea could be related to acute gastritis/gastroenteritis. Plan: Agree with your current management. Agree with supportive care and symptomatic treatment with close follow-up to rule out exacerbation of any of chronic conditions as listed above. I will follow with you with interest.
[2017-06-27 11:29] VITALS: BP 94/54; PULSE 62; TEMP 98.5
[2017-06-27] MEDS: KETOROLAC 30 MG/ML 1 ML VIAL IVP PRN (14:23)
[2017-06-27 15:24] LABS: HGB 12.8 gm/dL (11.4-16.0)
--- NOTE | 2017-06-27 16:10 | DS ---
DISCHARGE SUMMARY DATE OF ADMISSION: 06/26/17. DATE OF DISCHARGE: 06/27/17 FINAL DIAGNOSES: 1. Acute abdominal pain, possibly from acute on chronic gastritis, possible flare-up of chronic pancreatitis. 2. Chronic Crohn disease. 3. Chronic rheumatoid arthritis. 4. Chronic pancreatitis. 5. Moderate protein-calorie malnutrition from decreased oral intake, BMI 17.2. CONSULTATION: Dr. Nagy from GI. HOSPITAL COURSE: The patient has known chronic pancreatitis, rheumatoid arthritis. He takes chronic pain medications with increasing pain in the epigastric area. The patient has no fever, no white count. The patient could have had a bit of gastritis or pancreatitis, though the pancreatic numbers are normal. This could happen chronic pancreatitis. The patient is treated conservatively. Did much better. This morning was able to tolerate a liquid diet. Doing much better. I did discuss with Dr. Nagy. On exam, abdomen is soft, nontender. DC MEDICATIONS: 1. Fosamax 70 mg p.o. on Tuesday. 2. Imitrex 100 mg daily p.r.n. 3. Omeprazole 20 mg p.o. b.i.d. 4. Zofran 8 mg p.o. t.i.d. p.r.n. 5. Creon 09063 units 3 capsules p.o. t.i.d. 6. Claritin 10 mg p.o. daily. 7. Singulair 10 mg q.h.s. 8. MS Contin 30 mg p.o. t.i.d. 9. Morphine sulfate instant release 50 mg p.o. b.i.d. p.r.n. 10.Humira 40 mg subcu every 14 days. 11.Topamax 50 mg p.o. b.i.d. 12.Imodium 2 mg q.6h p.r.n. Follow up with Dr. Nagy in 2 weeks, follow Dr. Dobbins in 2 or 3 days. DIET: Full liquid diet and advance as tolerated to soft, bland. MMODL / IJN: [id number] /
== END 2017-06-27 17:17 | disposition home or self-care (01) ==
LOC: EC → 3OBS 02:07
PROVIDERS: ADMIT Hospitalist; ATTEND Hospitalist
DX: K86.1 Other chronic pancreatitis (principal); E44.0 Moderate protein-calorie malnutrition; Z68.1 Body mass index [BMI] 19.9 or less, adult; M06.9 Rheumatoid arthritis, unspecified; K21.9 Gastro-esophageal reflux disease without esophagitis; M19.90 Unspecified osteoarthritis, unspecified site; G62.9 Polyneuropathy, unspecified; K57.30 Diverticulosis of large intestine without perforation or abscess without bleeding; R00.1 Bradycardia, unspecified; H26.9 Unspecified cataract; G89.4 Chronic pain syndrome; K50.90 Crohn's disease, unspecified, without complications; R10.13 Epigastric pain; Z90.49 Acquired absence of other specified parts of digestive tract; Z79.899 Other long term (current) drug therapy; Z79.891 Long term (current) use of opiate analgesic; Z79.83 Long term (current) use of bisphosphonates; Z88.8 Allergy status to other drugs, medicaments and biological substances; Z87.440 Personal history of urinary (tract) infections; Z82.49 Family history of ischemic heart disease and other diseases of the circulatory system; Z86.2 Personal history of diseases of the blood and blood-forming organs and certain disorders involving the immune mechanism
CPT/HCPCS: 96361 ×2; 96372 ×3; 96376 ×2; 96374; 96375; 99285; 36415; 93005; 80053; 80048; 83690 ×2; 85025 ×2; 74177; G0378 ×2; J1200; J0500; J1630; J2405 ×2; J1650 ×2; J1885 ×2; Q9967; J2274

== ENCOUNTER 2018-01-01 13:12 | Inpatient (IN) | payer OTHER ==
[2018-01-01] MEDS ORDERED: ONDANSETRON 4 MG/2 ML VIAL IVP STA (14:34)
[2018-01-01] MEDS ORDERED: MORPHINE SULFATE 2 MG/ML SYRINGE IVP STA (14:34)
[2018-01-01] MEDS ORDERED: SODIUM CHLORIDE 0.9% 1,000 ML IV ONE (14:34)
[2018-01-01 15:37] LABS: Amorphous Sediment,Urine Occasional /hpf; Appearance,Urine Cloudy (Clear); Bacteria,Urine Rare /hpf; Bilirubin,Urine Negative (Negative); Blood,Urine Small (Negative); Color,Urine Yellow; Glucose,Urine (UA) Negative (Negative); Ketones,Urine 2+ (Negative); Leukocyte Esterase,Urine Negative (Negative); Mucus,Urine Many /hpf; Nitrite,Urine Negative (Negative); Protein,Urine Trace (Negative); RBC,Urine 2 /hpf (0-5); Specific Gravity,Urine 1.016 (1.001-1.035); Squamous Epithelial Cell,Urine 44 /hpf (0-4); Urobilinogen,Urine <2.0 mg/dL (<2.0); WBC,Urine 3 /hpf (0-5)
[2018-01-01 15:46] LABS: Basophils % (A) 0 %; Eosinophils # (A) 0.1 k/uL (0-0.7); Eosinophils % (A) 1 %; HCT 48.1 % (34.0-46.0); HGB 15.6 gm/dL (11.4-16.0); Lymphocytes # (A) 1.4 k/uL (1.0-4.8); Lymphocytes % (A) 11 %; MCH 30.2 pg (25.0-35.0); MCHC 32.5 g/dL (31.0-37.0); MCV 93.1 fL (80.0-100.0); Mean Platelet Volume 7.2; Monocytes # (A) 0.5 k/uL (0-1.0); Monocytes % (A) 4 %; Neutrophils # (A) 10.2 k/uL (1.3-7.7); Neutrophils % (A) 83 %; Platelet Count 274 k/uL (150-450); RBC 5.16 m/uL (3.80-5.40); RDW 13.4 % (11.5-15.5); WBC 12.3 k/uL (3.8-10.6)
[2018-01-01 15:55] LABS: ALT 25 U/L (9-52); AST 20 U/L (14-36); Albumin 4.6 g/dL (3.5-5.0); Alkaline Phosphatase 77 U/L (38-126); Anion Gap 8 mmol/L; Blood Urea Nitrogen 11 mg/dL (7-17); Calcium 10.5 mg/dL (8.4-10.2); Carbon Dioxide 22 mmol/L (22-30); Chloride 112 mmol/L (98-107); Glucose 96 mg/dL (74-99); Lipase 102 U/L (23-300); Potassium 4.5 mmol/L (3.5-5.1); Sodium 142 mmol/L (137-145); Total Bilirubin 0.8 mg/dL (0.2-1.3); Total Protein 7.4 g/dL (6.3-8.2)
--- NOTE | 2018-01-01 16:15 | ED ---
General Adult HPI - General Chief complaint: Abdominal Pain Stated complaint: Abd Pain Time Seen by Provider: 01/01/18 14:21 Source: patient Mode of arrival: wheelchair Limitations: no limitations - History of Present Illness Initial comments: Smita is a 42-year-old female with past medical history of colitis for which she follows with gastroenterology and is on Humira injections. The patient presents to the ER today for evaluations of 3 days of progressively worsening abdominal pain, nausea, vomiting and concern for dehydration. Patient reports she's been compliant with her home medications. She is scheduled to see her operational risk consultant tomorrow. Patient states over the past 3 days she's had progressively worsening abdominal pain. She states that the pain began on the left lower quadrant but has become more diffuse. Pain is associated with nausea , anorexia, vomiting. Patient states she's been trying to drink fluids but feels like she is getting dehydrated. Patient states that today she didn't have any energy to get out of bed and made the decision come to the ER for further evaluation. Patient states that she was last admitted approximately 6 months ago for a colitis flare. Patient states that she's been experiencing nausea and has been prescribed Zofran. She states in the past she has had Zofran ODT which is treated her nausea well, however her most recent prescription was for non-dissolvable and she states that when she takes the Zofran she still throws up and doesn't feel that she is getting the medication. Patient denies any chest pain, shortness breath, lightheadedness, fevers, chills or change in bladder habits. - Related Data Home Medications Medication Instructions Recorded Confirmed Alendronate Sodium [Fosamax] 70 mg PO MO 06/07/16 07/23/17 SUMAtriptan SUCCINATE [Imitrex] 100 mg PO DAILY PRN 06/07/16 07/23/17 Omeprazole 20 mg PO DAILY 08/05/16 07/23/17 Ondansetron [Zofran ODT] 8 mg PO TID PRN 08/18/16 07/23/17 Lipase/Protease/Amylase [Thor Dr 3 cap PO AC-TID 09/14/16 07/23/17 24,000 Units Capsule] Loratadine 10 mg PO DAILY 09/14/16 07/23/17 Montelukast Sodium [Singulair] 10 mg PO HS 09/14/16 07/23/17 Morphine Sulfate ER [Ms Contin] 30 mg PO TID 09/14/16 07/23/17 Morphine Sulfate Ir [MSIR] 15 mg PO BID PRN 09/14/16 07/23/17 Adalimumab [Humira Pen] 40 mg SQ [id number] 12/25/16 07/23/17 Topiramate [Topamax] 50 mg PO BID 02/02/17 07/23/17 Previous Rx's Medication Instructions Recorded Albuterol Inhaler [Ventolin Hfa 1 - 2 puff INHALATION Q6HR PRN #1 07/23/17 Inhaler] inhaler Levofloxacin [Levaquin] 750 mg PO DAILY 5 Days #5 tab 07/23/17 Yalx-Sntr-Ajn 6.25-5-10Mg/5Ml 5 ml PO TID #120 ml 07/23/17 [Phenergan VC with Codeine] predniSONE 50 mg PO DAILY #5 tablet 07/23/17 Allergies Allergy/AdvReac Type Severity Reaction Status Date / Time metoclopramide [From Reglan] AdvReac Twitching Verified 01/01/18 14:17 Review of Systems ROS Statement: Those systems with pertinent positive or pertinent negative responses have been documented in the HPI. ROS Other: All systems not noted in ROS Statement are negative. Constitutional: Reports: weakness (generalized) ENT: Denies: throat pain Respiratory: Denies: cough, dyspnea Cardiovascular: Denies: chest pain, palpitations Endocrine: Reports: fatigue Gastrointestinal: Reports: abdominal pain, nausea, vomiting Genitourinary: Denies: urgency, dysuria Musculoskeletal: Denies: back pain Skin: Denies: rash Neurological: Reports: headache (due to dehydration) Psychiatric: Denies: anxiety, depression Hematological/Lymphatic: Reports: easy bruising (unchanged recently) Past Medical History Past Medical History: Eye Disorder, GERD/Reflux, Neurologic Disorder, Osteoarthritis (OA), Rheumatoid Arthritis (RA) Additional Past Medical History / Comment(s): chronic pancreatitis, Crohn's disease, blood in stool, diverticulosis, hx ulcers, frequent UTI'S, hx blood clots in arm, hx anemia, hx kidney failure from dehydration 12 yrs ago, neuropathy, cataracts History of Any Multi-Drug Resistant Organisms: None Reported Past Surgical History: Cholecystectomy Additional Past Surgical History / Comment(s): colonsocopy, EGD, Past Anesthesia/Blood Transfusion Reactions: No Reported Reaction Additional Past Anesthesia/Blood Transfusion Reaction / Comment(s): has had 13 blood transfusion-no reaction Past Psychological History: No Psychological Hx Reported Smoking Status: Never smoker Past Alcohol Use History: None Reported Past Drug Use History: Marijuana - Past Family History Father Family Medical History: Myocardial Infarction ([place]) Additional Family Medical History / Comment(s): biological father had hx of drug abuse Mother Family Medical History: Hypertension General Exam Limitations: no limitations General appearance: alert, other (appears uncomfortable, malnoursihed) Head exam: Present: atraumatic, normocephalic Eye exam: Present: PERRL ENT exam: Present: mucous membranes dry Neck exam: Present: normal inspection, full ROM. Absent: lymphadenopathy Respiratory exam: Present: normal lung sounds bilaterally Cardiovascular Exam: Present: regular rate, normal rhythm GI/Abdominal exam: Present: soft, tenderness, normal bowel sounds. Absent: distended, guarding, rebound Rectal exam: Present: deferred Extremities exam: Present: normal inspection, normal capillary refill Neurological exam: Present: alert, oriented X3 Psychiatric exam: Present: normal affect, normal mood Skin exam: Present: warm, dry Course Vital Signs 01/01/18 01/01/18 01/01/18 14:15 15:41 16:12 Temperature 97.4 F L Pulse Rate 69 54 L 59 L Respiratory 18 18 18 Rate Blood Pressure 107/75 101/60 113/64 O2 Sat by Pulse 98 99 98 Oximetry Medical Decision Making - Medical Decision Making Patient was seen and evaluated, history was obtained from the patient and at bedside With a history of colitis with progressively worsening abdominal pain, nausea, vomiting. On physical exam the patient appears to be dehydrated. She has dry mucous membranes and skin tenting. And is narcotic dependent for chronic pain. Has been vomiting and unable to keep down her oral morphine. The fluids, Zofran and morphine were ordered. Labs reveal mild leukocytosis CT suggestive of diffuse colitis Patient care was discussed with patient's operational risk consultant who agrees with the plan for admission for IV fluid rehydration, pain control and request that 60 mg IV solu-medrol be ordered every 6 hours Patient care was discussed with medicine team, Dr. Healy who accepts the admission. - Lab Data Result diagrams: 01/01/18 15:37 01/01/18 15:37 Lab Results 01/01/18 01/01/18 01/01/18 Range/Units 15:21 15:21 15:37 WBC 12.3 H (3.8-10.6) k/uL RBC 5.16 (3.80-5.40) m/uL Hgb 15.6 (11.4-16.0) gm/dL Hct 48.1 H (34.0-46.0) % MCV 93.1 (80.0-100.0) fL MCH 30.2 (25.0-35.0) pg MCHC 32.5 (31.0-37.0) g/dL RDW 13.4 (11.5-15.5) % Plt Count 274 (150-450) k/uL Neutrophils % 83 % Lymphocytes % 11 % Monocytes % 4 % Eosinophils % 1 % Basophils % 0 % Neutrophils # 10.2 H (1.3-7.7) k/uL Lymphocytes # 1.4 (1.0-4.8) k/uL Monocytes # 0.5 (0-1.0) k/uL Eosinophils # 0.1 (0-0.7) k/uL Basophils # 0.0 (0-0.2) k/uL Sodium (137-145) mmol/L Potassium (3.5-5.1) mmol/L Chloride (98-107) mmol/L Carbon Dioxide (22-30) mmol/L Anion Gap mmol/L BUN (7-17) mg/dL Creatinine (0.52-1.04) mg/dL Est GFR (CKD-EPI)AfAm (>60 ml/min/1.73 sqM) Est GFR (CKD-EPI)NonAf (>60 ml/min/1.73 sqM) Glucose (74-99) mg/dL Calcium (8.4-10.2) mg/dL Total Bilirubin (0.2-1.3) mg/dL AST (14-36) U/L ALT (9-52) U/L Alkaline Phosphatase (38-126) U/L Total Protein (6.3-8.2) g/dL Albumin (3.5-5.0) g/dL Lipase (23-300) U/L Urine Color Yellow Urine Appearance Cloudy H (Clear) Urine pH 6.0 (5.0-8.0) Ur Specific Lyman 1.016 (1.001-1.035) Urine Protein Trace H (Negative) Urine Glucose (UA) Negative (Negative) Urine Ketones 2+ H (Negative) Urine Blood Small H (Negative) Urine Nitrite Negative (Negative) Urine Bilirubin Negative (Negative) Urine Urobilinogen <2.0 (<2.0) mg/dL Ur Leukocyte Esterase Negative (Negative) Urine RBC 2 (0-5) /hpf Urine WBC 3 (0-5) /hpf Ur Squamous Epith Cells 44 H (0-4) /hpf Amorphous Sediment Occasional H (None) /hpf Urine Bacteria Rare H (None) /hpf Urine Mucus Many H (None) /hpf Urine HCG, Qual Not Detected (Not Detectd) 01/01/18 Range/Units 15:37 WBC (3.8-10.6) k/uL RBC (3.80-5.40) m/uL Hgb (11.4-16.0) gm/dL Hct (34.0-46.0) % MCV (80.0-100.0) fL MCH (25.0-35.0) pg MCHC (31.0-37.0) g/dL RDW (11.5-15.5) % Plt Count (150-450) k/uL Neutrophils % % Lymphocytes % % Monocytes % % Eosinophils % % Basophils % % Neutrophils # (1.3-7.7) k/uL Lymphocytes # (1.0-4.8) k/uL Monocytes # (0-1.0) k/uL Eosinophils # (0-0.7) k/uL Basophils # (0-0.2) k/uL Sodium 142 (137-145) mmol/L Potassium 4.5 (3.5-5.1) mmol/L Chloride 112 H (98-107) mmol/L Carbon Dioxide 22 (22-30) mmol/L Anion Gap 8 mmol/L BUN 11 (7-17) mg/dL Creatinine 0.60 (0.52-1.04) mg/dL Est GFR (CKD-EPI)AfAm >90 (>60 ml/min/1.73 sqM) Est GFR (CKD-EPI)NonAf >90 (>60 ml/min/1.73 sqM) Glucose 96 (74-99) mg/dL Calcium 10.5 H (8.4-10.2) mg/dL Total Bilirubin 0.8 (0.2-1.3) mg/dL AST 20 (14-36) U/L ALT 25 (9-52) U/L Alkaline Phosphatase 77 (38-126) U/L Total Protein 7.4 (6.3-8.2) g/dL Albumin 4.6 (3.5-5.0) g/dL Lipase 102 (23-300) U/L Urine Color Urine Appearance (Clear) Urine pH (5.0-8.0) Ur Specific Lyman (1.001-1.035) Urine Protein (Negative) Urine Glucose (UA) (Negative) Urine Ketones (Negative) Urine Blood (Negative) Urine Nitrite (Negative) Urine Bilirubin (Negative) Urine Urobilinogen (<2.0) mg/dL Ur Leukocyte Esterase (Negative) Urine RBC (0-5) /hpf Urine WBC (0-5) /hpf Ur Squamous Epith Cells (0-4) /hpf Amorphous Sediment (None) /hpf Urine Bacteria (None) /hpf Urine Mucus (None) /hpf Urine HCG, Qual (Not Detectd) Disposition Clinical Impression: Colitis Disposition: ADMITTED IP TO THIS [facility] Condition: Good Referrals: Derek Dobbins MD [Primary Care Provider] - 1-2 days Decision Date: 01/01/18 Decision Time: 17:51
--- NOTE | 2018-01-01 16:39 | CT ---
EXAMINATION TYPE: CT abdomen pelvis w con DATE OF EXAM: 01/01/2018 COMPARISON: Prior CT abdomen pelvis 06/26/2017 HISTORY: Abdominal pain with vomiting and diarrhea CT DLP: 311.9 mGycm Automated exposure control for dose reduction was used. TECHNIQUE: Helical acquisition of images from the lung bases through the pelvis have been completed. CONTRAST: Performed without Oral Contrast and with IV Contrast, patient injected with 100 mL of Isovue 300. FINDINGS: There is a mild pectus deformity. LUNG BASES: Some minimal dependent atelectatic change is present AORTA: No significant abnormality is appreciated. LIVER/GB: Patient is post cholecystectomy. Liver shows a stable appearance. PANCREAS: No significant abnormality is seen. SPLEEN: No significant abnormality is seen. ADRENALS: No significant abnormality is seen. KIDNEYS: Cortical cyst again noted within the kidneys. REPRODUCTIVE ORGANS: Probable left ovarian cyst measures 2 cm. BOWEL: Small bowel shows areas of wall thickening. Question some colonic wall thickening also presen t. The appendix is normal FREE AIR: No Free Air visible. ASCITES: Small amount of free fluid present within the pelvis. PELVIC ADENOPATHY: None visualized. RETROPERITONEAL ADENOPATHY: No Retroperitoneal Adenopathy visible. URINARY BLADDER: No significant abnormality is seen. OSSEOUS STRUCTURES: No significant abnormality is seen. IMPRESSION: CORRELATE FOR ENTERITIS, COLITIS. ADDITIONAL FINDINGS ABOVE, FOLLOW-UP
[2018-01-01] MEDS ORDERED: NALOXONE 0.4 MG/ML 1 ML VIAL IV PRN (17:33)
[2018-01-01] MEDS ORDERED: MORPHINE SULFATE 4 MG/ML SYRINGE IV PRN (17:33)
[2018-01-01] MEDS ORDERED: ONDANSETRON 4 MG/2 ML VIAL IVP PRN (17:33)
[2018-01-01] MEDS ORDERED: methylPREDNISolone SOD SUCCI 125 MG/2 ML VIAL IV STA (17:51)
[2018-01-01] MEDS ORDERED: methylPREDNISolone SOD SUCCI 125 MG/2 ML VIAL IV SCH (18:00)
[2018-01-01] MEDS: SODIUM CHLORIDE 0.9% 1,000 ML IV SCH (18:01)
[2018-01-01 19:55] VITALS: BMI 15.9
[2018-01-01] MEDS: HYDROmorphone 0.5 MG/0.5 ML SYRINGE IVP PRN ×2 (20:00→23:08)
[2018-01-01] MEDS: ONDANSETRON 4 MG/2 ML VIAL IVP PRN (22:16)
[2018-01-01] MEDS: methylPREDNISolone SOD SUCCI 125 MG/2 ML VIAL IV SCH (23:15)
[2018-01-02] MEDS: SODIUM CHLORIDE 0.9% 1,000 ML IV SCH ×2 (02:09→08:14)
[2018-01-02] MEDS: ONDANSETRON 4 MG/2 ML VIAL IVP PRN ×2 (03:37→18:20)
[2018-01-02] MEDS: HYDROmorphone 0.5 MG/0.5 ML SYRINGE IVP PRN ×6 (03:38→22:00)
[2018-01-02] MEDS: methylPREDNISolone SOD SUCCI 125 MG/2 ML VIAL IV SCH ×2 (05:18→23:51)
[2018-01-02] MEDS ORDERED: SUMAtriptan SUCCINATE 50 MG TAB PO PRN (08:34)
[2018-01-02] MEDS ORDERED: MORPHINE SULFATE IR 15 MG TABLET PO PRN (08:34)
[2018-01-02 09:17] LABS: HCT 41.4 % (34.0-46.0); HGB 13.8 gm/dL (11.4-16.0); MCH 31.8 pg (25.0-35.0); MCHC 33.3 g/dL (31.0-37.0); MCV 95.3 fL (80.0-100.0); Mean Platelet Volume 6.9; Platelet Count 211 k/uL (150-450); RBC 4.34 m/uL (3.80-5.40); RDW 13.3 % (11.5-15.5); WBC 9.8 k/uL (3.8-10.6)
[2018-01-02 09:29] LABS: ALT 21 U/L (9-52); AST 27 U/L (14-36); Albumin 4.2 g/dL (3.5-5.0); Alkaline Phosphatase 58 U/L (38-126); Anion Gap 12 mmol/L; Blood Urea Nitrogen 16 mg/dL (7-17); Calcium 8.6 mg/dL (8.4-10.2); Carbon Dioxide 20 mmol/L (22-30); Chloride 108 mmol/L (98-107); Glucose 101 mg/dL (74-99); Potassium 4.1 mmol/L (3.5-5.1); Sodium 140 mmol/L (137-145); Total Bilirubin 0.5 mg/dL (0.2-1.3); Total Protein 6.4 g/dL (6.3-8.2)
--- NOTE | 2018-01-02 09:37 | HP ---
HISTORY AND PHYSICAL DATE OF ADMISSION: 01/01/2018 DATE OF SERVICE: 01/01/2018 PRESENTING COMPLAINT: Abdominal pain, diarrhea. HISTORY OF PRESENTING COMPLAINT: This is a pleasant 42-year-old patient known to me from several admissions, follows with Dr. Nagy from GI and Dr. Dobbins. Chronic stable medical conditions include GERD, osteoarthritis, rheumatoid arthritis, chronic pancreatitis, diverticulosis, and peripheral neuropathy. The patient does have chronic pain for which she takes opioids. Patient presents with one day of increasing nausea, vomiting, diarrhea, abdominal pain. Denies any fever and chills. The patient lives with a boyfriend, but he did not get sick. The patient presented to the ER. CT scan of the abdomen and pelvis showed small bowel areas of wall thickening and some colonic wall thickening also present. The patient denied any blood in the stool. The patient has a known diagnosis of Crohn disease. Hence IV steroids starting were started in the ER like stated patient did not have any fever and chills, Patient was seen by me yesterday evening on the medical floor. REVIEW OF SYSTEMS: CONSTITUTIONAL: Tired, HEENT: None. RESPIRATORY: None. CARDIOVASCULAR: None. GASTROINTESTINAL: As above. GENITOURINARY: None. MUSCULOSKELETAL: Pain in different joints. DERMATOLOGICAL: None. HEMATOLOGIC: None. LYMPHATICS: None. PSYCHIATRY: None. NEUROLOGICAL: None. PAST MEDICAL HISTORY: Crohn disease, rheumatoid arthritis, chronic pancreatitis, protein calorie malnutrition, chronic pain syndrome. PAST SURGICAL HISTORY: Cholecystectomy. SOCIAL HISTORY: No smoking, no alcohol. Has a boyfriend. Does do marijuana. FAMILY HISTORY: Family history of hypertension. HOME MEDICATIONS: 1. Morphine immediate release 15 mg p.o. b.i.d. p.r.n. 2. Topamax 50 mg b.i.d. 3. MS Contin 30 mg q.8. 4. Humira 40 mg subcutaneously q.14 days. 5. Imitrex 100 mg p.o. daily p.r.n. 6. Omeprazole 20 mg p.o. daily. 7. Singulair 10 mg at bedtime. 8. Creon 24,000, three capsules p.o. a.c. t.i.d. 9. Fosamax 70 mg p.o. on Tuesday. 10.Zofran 8 mg t.i.d. p.r.n. 11.Loratadine 10 mg p.o. daily. ALLERGIES: Allergies to REGLAN. PHYSICAL EXAMINATION: On examination, vital signs on presentation, temperature 97.4 pulse 69, respirations 18, blood pressure 107/75. GENERAL APPEARANCE: Thin built, BMI 15.9. Lying in bed, slightly uncomfortable. EYES: Pupils equal. Conjunctivae pale. HENT: External appearance of nose and ears normal. Oral cavity dry. NECK: JVD not raised. Mass not palpable. RESPIRATORY: Effort normal. LUNGS: Fair entry. CARDIOVASCULAR: First and second sounds normal. No edema. ABDOMEN: Diffuse tenderness. No guarding or rigidity. Liver and spleen not palpable. LYMPHATIC: No lymph node palpable in the neck or axillae. PSYCHIATRY: Alert and oriented x3. Mood and affect slightly anxious appearing. NEUROLOGICAL: Pupils equal. Cranial nerves grossly intact. Power and sensation grossly intact. INVESTIGATIONS: White count 12.3, hemoglobin 15.6. Potassium 4.5. BUN and creatinine normal. UA appears to be contaminated. CT scan of the abdomen shows some thickening of the small bowel and then the large bowel. ASSESSMENT: 1. Possible acute flare up of Crohn disease with CT scan findings relevant in the small bowel and the large bowel. Manifestations nausea, vomiting, severe diarrhea, slight elevated white count white count for which patient has been started on IV steroids. We will make the patient n.p.o., give IV fluids. 2. Chronic rheumatoid arthritis for which the patient is to continue on Humira. 3. Chronic pancreatitis for which patient is on enzyme supplementation which is held right now because patient is n.p.o. 4. Moderate to severe protein calorie malnutrition from decreased oral intake. The patient's BMI is down to 15.2. PLAN: Initial plan, consultation with GI has been done. IV fluids will be given. Patient to be kept n.p.o. Care was discussed with the patient. The patient is getting IV Dilaudid currently for pain management as she is not able to keep anything down. MMODL / IJN: [id number] /
[2018-01-02] MEDS: TOPIRAMATE 25 MG TAB PO SCH ×2 (09:48→21:19)
[2018-01-02] MEDS: LORATADINE 10 MG TAB PO SCH (09:48)
[2018-01-02] MEDS: methylPREDNISolone SOD SUCCI 40 MG/ML 1 ML VIAL IV SCH ×2 (09:48→15:35)
[2018-01-02] MEDS: MORPHINE SULFATE ER 30 MG TABLET PO SCH (09:49)
[2018-01-02] MEDS: ENOXAPARIN 40 MG/0.4 ML SYRINGE SQ SCH (09:49)
[2018-01-02 17:12] LABS: Glucose,Whole Blood 137 mg/dL (75-99)
[2018-01-02] MEDS: INSULIN ASPART 100 UNIT/ML 1 ML 10 ML VIAL SQ SCH ×2 (17:30→21:20)
[2018-01-02 20:57] LABS: Hemoglobin A1C 5.4 % (4.0-6.0)
[2018-01-02 21:15] LABS: Glucose,Whole Blood 120 mg/dL (75-99)
[2018-01-02] MEDS: MONTELUKAST 10 MG TAB PO SCH (21:19)
--- NOTE | 2018-01-02 21:37 | CONS ---
CONSULTATION DATE OF SERVICE: January 02, 2018 REQUESTING PHYSICIAN: Dr. Healy and Dr. Dobbins. REASON FOR CONSULTATION: Exacerbation of ulcerative colitis. HISTORY OF PRESENT ILLNESS: The patient is a 42 -year-old pleasant white female with history of ulcerative colitis/chronic pancreatitis, known to Dr. Nagy with whom she follows on an outpatient basis. The patient states that she was diagnosed with inflammatory bowel disease about 25 years ago. She has been steroid dependent and hence was started on Humira, induction dose about a year ago and presently at 40 mg every 2 weeks. The patient who in fact was just seen by Dr. aNgy about a month ago and . She presented with acute onset of abdominal pain associated with nausea, vomiting, diarrhea that started about 2 days ago. She came in the emergency room and had a CT of the abdomen and pelvis done that showed some thickening of the small bowel wall as well as some colonic wall thickening suspicious for acute colitis. The patient was subsequently started on IV Solu-Medrol in the emergency room this morning . The nausea and vomiting has significantly improved. The diarrhea has resolved. Stool for C diff requested but was not done because the patient did not have any diarrhea for the last 12 hours. She reports no fever, chills, night sweats. Denies any recent antibiotic use. Her last steroid use was about a year ago. She denies any blood or mucus in the stool. PAST MEDICAL HISTORY: Significant for peripheral neuropathy, gastroesophageal reflux disease, rheumatoid arthritis. Chronic pancreatitis, diverticulosis and peripheral neuropathy. PAST SURGICAL HISTORY: Cholecystectomy, EGD, colonoscopy in August of 2016, that showed multiple polyps in the right colon. MEDICATIONS: At home include Topamax, morphine, MS Contin, Imitrex, omeprazole, singular, Creon, Fosamax, Zofran and Loratadine. ALLERGIES: ALLERGIES TO REGLAN. SOCIAL HISTORY: No smoking. No alcohol. FAMILY HISTORY: Unremarkable. REVIEW OF SYSTEMS: Cardiopulmonary: Denies any chest pain or shortness of breath. Genitourinary: No dysuria or hematuria. Musculoskeletal: Unremarkable. Skin: Unremarkable. Endocrine: Unremarkable. . Neurological: Unremarkable. ENT/vision unremarkable. Constitutional: No recent weight loss. No fever, chills, night sweats. PHYSICAL EXAMINATION: Patient appears comfortable. No apparent distress. VITAL SIGNS: Stable. Blood pressure is 132/86, pulse 84 per minute and afebrile. HEENT examination unremarkable. Conjunctivae pink. Sclerae anicteric. Oral cavity no lesions. NECK: No jugular venous distention or lymph node enlargement. Chest was clear to auscultation. HEART: Regular rate and rhythm. ABDOMEN: Soft. There was very minimal tenderness in the epigastric left upper quadrant as well as in the left lower quadrant area. Bowel sounds are positive. No organomegaly Extremities: No pedal edema. Skin no rashes. Neuro: She is alert and oriented times three. No focal deficits. LAB DATA: Done at the time of admission to the hospital WBC 12.3, hemoglobin 15.6, platelets of 4.5. BUN and creatinine normal. CT of the abdomen showed some thickening of the small bowel as well as right colon. IMPRESSION: This is a lady who presents to the hospital with left sided abdominal pain, associated with nausea, vomiting, diarrhea that started about 2 days ago. She has longstanding history of ulcerative colitis and follows with Dr. Nagy on outpatient basis. She has been maintained on Humira 40 mg every 2 weeks that was started about a year ago and had been in clinical remission. At this time, possibility of superimposed acute infectious colitis needs to be excluded. The patient was already started on IV Solu-Medrol in the emergency room and symptoms gradually seem to be improving. RECOMMENDATIONS: 1. Continue with IV Solu-Medrol 60 mg q.6 hours. 2. Start on clear liquid diet. 3. Antiemetics as needed. 4. If the nausea and vomiting resolves, we can change her IV steroids to oral prednisone 40 mg daily and she was advised to taper it by 5 mg on a weekly basis. Thank you for this consultation. We will follow her closely during hospital stay. Please send a copy to Dr. Dobbins. Thank you for the consultation. MMODL / IJN: [id number] /
--- NOTE | 2018-01-02 23:01 | PN ---
PROGRESS NOTE DATE OF SERVICE: 01/02/2018 This 42-year-old woman who was admitted with possible Crohn disease, acute exacerbation, is complaining of abdominal pain and severe diarrhea. The patient was started on IV steroids. Dr. Bonilla is following the patient closely. No chest pain. No palpitations. No fever at this time. PHYSICAL EXAMINATION: Alert and oriented x3. Pulse is 66, blood pressure 100/57, respiration 16, temperature 97.8, pulse ox 98% on room air. HEENT: Conjunctivae normal. Oral mucosa moist. NECK: No jugular venous distention. No carotid bruit. No lymph node enlargement. CARDIOVASCULAR SYSTEM: S1, S2 muffled. RESPIRATORY SYSTEM: Breath sounds diminished at the bases. No rhonchi. No crackles. ABDOMEN: Soft, scaphoid. Mild diffuse tenderness present. No guarding. No rigidity. No mass palpable. LEGS: No edema. No swelling. NERVOUS SYSTEM: Higher functions as mentioned earlier. Moves all 4 limbs. No focal motor or sensory deficits. LYMPHATICS: No lymph node palpable in neck, axillae. SKIN: No ulcer, rash, bleeding. LABS AT THIS TIME: WBC was 12.3, improved to 9.8. Hemoglobin 15.6. Glucose 137, 120. ASSESSMENT: 1. Crohn disease, acute exacerbation, with severe abdominal pain and diarrhea. 2. Chronic rheumatoid arthritis. 3. Chronic pancreatitis. 4. Remote history of protein-calorie malnutrition. RECOMMENDATIONS AND DISCUSSION: I recommend to continue current medication, continue symptomatic treatment. Otherwise, continue with IV steroids. Monitor blood sugars closely. Guarded prognosis because of multiple complex medical issues. Further recommendations to follow. MMODL / IJN: [id number] /
[2018-01-03] MEDS: HYDROmorphone 0.5 MG/0.5 ML SYRINGE IVP PRN ×6 (02:38→20:29)
[2018-01-03] MEDS: SODIUM CHLORIDE 0.9% 1,000 ML IV SCH ×2 (06:29→12:01)
[2018-01-03 06:43] LABS: Glucose,Whole Blood 122 mg/dL (75-99)
[2018-01-03] MEDS: methylPREDNISolone SOD SUCCI 125 MG/2 ML VIAL IV SCH ×3 (06:44→17:29)
[2018-01-03] MEDS: ONDANSETRON 4 MG/2 ML VIAL IVP PRN ×3 (06:47→20:32)
[2018-01-03] MEDS: MORPHINE SULFATE ER 30 MG TABLET PO SCH ×3 (06:49→15:50)
[2018-01-03] MEDS: LIPASE 5,000/PROTEASE 17,000/AMYLASE 27,0000 PO SCH ×3 (06:51→17:29)
[2018-01-03] MEDS: PANTOPRAZOLE 40 MG TABLET PO SCH (06:54)
[2018-01-03] MEDS: INSULIN ASPART 100 UNIT/ML 1 ML 10 ML VIAL SQ SCH ×4 (06:55→21:33)
[2018-01-03 07:26] LABS: Basophils % (A) 0 %; Eosinophils % (A) 0 %; HCT 39.4 % (34.0-46.0); HGB 12.9 gm/dL (11.4-16.0); Lymphocytes # (A) 0.7 k/uL (1.0-4.8); Lymphocytes % (A) 7 %; MCH 31.2 pg (25.0-35.0); MCHC 32.8 g/dL (31.0-37.0); Monocytes # (A) 0.4 k/uL (0-1.0); Monocytes % (A) 4 %; Neutrophils # (A) 8.3 k/uL (1.3-7.7); Neutrophils % (A) 88 %; Platelet Count 221 k/uL (150-450); RBC 4.15 m/uL (3.80-5.40); RDW 13.8 % (11.5-15.5); WBC 9.4 k/uL (3.8-10.6)
[2018-01-03 07:34] LABS: Anion Gap 8 mmol/L; Blood Urea Nitrogen 18 mg/dL (7-17); Calcium 8.6 mg/dL (8.4-10.2); Carbon Dioxide 20 mmol/L (22-30); Chloride 110 mmol/L (98-107); Glucose 121 mg/dL (74-99); Potassium 4.5 mmol/L (3.5-5.1); Sodium 138 mmol/L (137-145)
[2018-01-03] MEDS: ENOXAPARIN 40 MG/0.4 ML SYRINGE SQ SCH (09:47)
[2018-01-03] MEDS: TOPIRAMATE 25 MG TAB PO SCH ×2 (09:47→21:38)
[2018-01-03] MEDS: LORATADINE 10 MG TAB PO SCH (09:47)
--- NOTE | 2018-01-03 11:30 | P.PN ---
Subjective Progress Note Date: 01/03/18 Principal diagnosis: Abdominal pain Feeling better. Ambulating. Tolerating clears. Afebrile. Abdominal pain still present but improving. Receiving IV steroids. Objective - Vital Signs Vital signs: Vital Signs Temp 98.2 F 01/03/18 06:36 Pulse 54 L 01/03/18 06:36 Resp 16 01/03/18 06:36 BP 106/61 01/03/18 06:36 Pulse Ox 98 01/03/18 06:36 Intake & Output 01/02/18 01/03/18 01/03/18 18:59 06:59 18:59 Intake Total 200 740 200 Balance 200 740 200 Weight 42 kg Intake: Oral 200 740 200 Other: Voiding Method Toilet # Voids 0 2 - Exam General appearance: The patient is alert, oriented, in no acute distress. HET: Head is normocephalic and atraumatic. Pupils are equal and reactive. Oropharynx is clear without lesions. Neck: Supple without lymphadenopathy. Trachea midline. Heart: S1 S2. Regular rate and rhythm. Lungs: No crackles or wheezes are heard. Abdomen: Soft, mild tenderness to midabdomen, nondistended with bowel sounds. No peritoneal signs. No palpable organomegaly or masses. Extremities: Normal skin color and turgor. No cyanosis, rash, ulceration, clubbing, or edema. Radial and pedal pulses are 2/4 bilaterally. Neurological: No focal deficits. Strength and sensation are grossly intact. - Labs CBC & Chem 7: 01/03/18 06:43 01/03/18 06:43 Labs: Abnormal Lab Results - Last 24 Hours (Table) 01/02/18 01/02/18 01/03/18 Range/Units 17:09 21:12 06:42 Neutrophils # (1.3-7.7) k/uL Lymphocytes # (1.0-4.8) k/uL Chloride (98-107) mmol/L Carbon Dioxide (22-30) mmol/L BUN (7-17) mg/dL Glucose (74-99) mg/dL POC Glucose (mg/dL) 137 H 120 H 122 H (75-99) mg/dL 01/03/18 01/03/18 Range/Units 06:43 06:43 Neutrophils # 8.3 H (1.3-7.7) k/uL Lymphocytes # 0.7 L (1.0-4.8) k/uL Chloride 110 H (98-107) mmol/L Carbon Dioxide 20 L (22-30) mmol/L BUN 18 H (7-17) mg/dL Glucose 121 H (74-99) mg/dL POC Glucose (mg/dL) (75-99) mg/dL Microbiology - Last 24 Hours (Table) 01/01/18 15:21 Urine Culture - Final Urine,Clean Catch Assessment and Plan (1) Abdominal pain Narrative/Plan: Abdominal pain nausea vomiting with a history of ulcerative colitis maintained on Humira with clinical remission possible exacerbation of IBD. Underlying self -limiting infectious colitis cannot be entirely excluded. Current Visit: Yes Status: Acute Code(s): R10.9 - UNSPECIFIED ABDOMINAL PAIN SNOMED Code(s): 12132685 Plan: 1. Continue with light diet and advance as tolerated. Continue the IV steroids today will taper tomorrow pending clinical course. Assessment and plan a care discussed with Dr. Bonilla
[2018-01-03 12:18] LABS: Glucose,Whole Blood 114 mg/dL (75-99)
[2018-01-03] MEDS ORDERED: HYDROcodone/APAP 5-325MG 1 EACH TAB PO PRN (14:03)
--- NOTE | 2018-01-03 16:02 | PN ---
PROGRESS NOTE DATE OF SERVICE: 01/03/2018 This 42-year-old woman who was admitted with possibly Crohn disease acute exacerbation is gradually improving. Patient is on IV steroids. No chest pain. No palpitations. No fever. EXAM: Alert, oriented x 3. Pulse 51, blood pressure 101/60, respiration 16, temperature 98.2, pulse ox 100% on room air. HEENT: Conjunctivae normal. NECK: No jugular venous distention. CARDIOVASCULAR: S1, S2 muffled. RESPIRATORY: Breath sounds diminished in the bases. No rhonchi, no crackles. ABDOMEN: Soft. Mild diffuse tenderness. LEGS: No edema. NERVOUS SYSTEM: No focal deficits. LABS: CO2 20, glucose noted. ASSESSMENT: 1. Crohn's disease acute exacerbation, severe abdominal pain and diarrhea. 2. Chronic rheumatoid arthritis. 3. Chronic pancreatitis. 5. History of protein calorie malnutrition, moderate. RECOMMENDATIONS AND DISCUSSION: I recommend to continue current management and symptomatic treatment. Continue steroids. Continue rest of medications. Advance diet slowly. Closely follow with Gastroenterology. Guarded prognosis. Further recommendations to follow. MMODL / IJN: [id number] / MTDD
[2018-01-03 17:17] LABS: Glucose,Whole Blood 117 mg/dL (75-99)
[2018-01-03 21:33] LABS: Glucose,Whole Blood 129 mg/dL (75-99)
[2018-01-03] MEDS: MONTELUKAST 10 MG TAB PO SCH (21:34)
[2018-01-03] MEDS ORDERED: HYDROmorphone 0.5 MG/0.5 ML SYRINGE ONE (23:30)
[2018-01-04] MEDS ORDERED: methylPREDNISolone SOD SUCCI 125 MG/2 ML VIAL ONE (00:45)
[2018-01-04] MEDS ORDERED: MORPHINE SULFATE ER 30 MG TABLET PO ONE (00:45)
[2018-01-04] MEDS: ONDANSETRON 4 MG/2 ML VIAL IVP PRN ×2 (05:10→12:55)
[2018-01-04] MEDS: HYDROmorphone 0.5 MG/0.5 ML SYRINGE IVP PRN ×2 (05:36→08:36)
[2018-01-04] MEDS: methylPREDNISolone SOD SUCCI 125 MG/2 ML VIAL IV SCH (06:06)
[2018-01-04] MEDS ORDERED: FOSAMAX 70MG PO SCH (06:30)
[2018-01-04 06:48] LABS: Glucose,Whole Blood 117 mg/dL (75-99)
[2018-01-04] MEDS: INSULIN ASPART 100 UNIT/ML 1 ML 10 ML VIAL SQ SCH (06:50)
[2018-01-04] MEDS: LIPASE 5,000/PROTEASE 17,000/AMYLASE 27,0000 PO SCH ×2 (06:51→12:12)
[2018-01-04] MEDS: PANTOPRAZOLE 40 MG TABLET PO SCH (06:51)
[2018-01-04 07:40] LABS: Basophils % (A) 0 %; Eosinophils % (A) 0 %; HCT 39.4 % (34.0-46.0); HGB 12.6 gm/dL (11.4-16.0); Lymphocytes # (A) 0.5 k/uL (1.0-4.8); Lymphocytes % (A) 8 %; MCH 30.8 pg (25.0-35.0); MCHC 32.1 g/dL (31.0-37.0); MCV 95.9 fL (80.0-100.0); Mean Platelet Volume 7.1; Monocytes # (A) 0.3 k/uL (0-1.0); Monocytes % (A) 6 %; Neutrophils # (A) 5.2 k/uL (1.3-7.7); Neutrophils % (A) 85 %; Platelet Count 196 k/uL (150-450); RBC 4.11 m/uL (3.80-5.40); RDW 13.6 % (11.5-15.5)
[2018-01-04 08:17] LABS: Anion Gap 6 mmol/L; Blood Urea Nitrogen 16 mg/dL (7-17); Calcium 8.8 mg/dL (8.4-10.2); Carbon Dioxide 22 mmol/L (22-30); Chloride 111 mmol/L (98-107); Glucose 125 mg/dL (74-99); Sodium 139 mmol/L (137-145)
--- NOTE | 2018-01-04 08:21 | P.PN ---
Subjective Progress Note Date: 01/04/18 Principal diagnosis: Abdominal pain Feeling better. Ambulating. No diarrhea. Tolerating fulls. Afebrile. Abdominal pain improving. Receiving IV steroids. Objective - Vital Signs Vital signs: Vital Signs Temp 98 F 01/04/18 06:48 Pulse 50 L 01/04/18 06:48 Resp 16 01/04/18 06:48 BP 114/51 01/04/18 06:48 Pulse Ox 100 01/04/18 06:48 Intake & Output 01/03/18 01/04/18 01/04/18 18:59 06:59 18:59 Intake Total 400 Balance 400 Intake: Oral 400 Other: Voiding Method Toilet # Voids 2 1 - Exam General appearance: The patient is alert, oriented, in no acute distress. HET: Head is normocephalic and atraumatic. Pupils are equal and reactive. Oropharynx is clear without lesions. Neck: Supple without lymphadenopathy. Trachea midline. Heart: S1 S2. Regular rate and rhythm. Lungs: No crackles or wheezes are heard. Abdomen: Soft, mild tenderness to midabdomen, nondistended with bowel sounds. No peritoneal signs. No palpable organomegaly or masses. Extremities: Normal skin color and turgor. No cyanosis, rash, ulceration, clubbing, or edema. Radial and pedal pulses are 2/4 bilaterally. Neurological: No focal deficits. Strength and sensation are grossly intact. - Labs CBC & Chem 7: 01/04/18 07:19 01/04/18 07:19 Labs: Abnormal Lab Results - Last 24 Hours (Table) 01/03/18 01/03/18 01/03/18 Range/Units 11:57 17:15 21:32 Lymphocytes # (1.0-4.8) k/uL Chloride (98-107) mmol/L Glucose (74-99) mg/dL POC Glucose (mg/dL) 114 H 117 H 129 H (75-99) mg/dL 01/04/18 01/04/18 01/04/18 Range/Units 06:47 07:19 07:19 Lymphocytes # 0.5 L (1.0-4.8) k/uL Chloride 111 H (98-107) mmol/L Glucose 125 H (74-99) mg/dL POC Glucose (mg/dL) 117 H (75-99) mg/dL Assessment and Plan (1) Abdominal pain Narrative/Plan: Abdominal pain nausea vomiting with a history of ulcerative colitis maintained on Humira with clinical remission possible exacerbation of IBD. Underlying self -limiting infectious colitis cannot be entirely excluded. Current Visit: Yes Status: Acute Code(s): R10.9 - UNSPECIFIED ABDOMINAL PAIN SNOMED Code(s): 51959073 Plan: 1. DC IV steroids; prednisone taper provided. 2. Soft diet. DC per medicine. 3. RTO 3-4 weeks. Assessment and plan of care discussed with Dr. Bonilla
[2018-01-04] MEDS: MORPHINE SULFATE ER 30 MG TABLET PO SCH (08:35)
[2018-01-04] MEDS: TOPIRAMATE 25 MG TAB PO SCH (09:57)
[2018-01-04] MEDS: LORATADINE 10 MG TAB PO SCH (09:57)
[2018-01-04] MEDS: ENOXAPARIN 40 MG/0.4 ML SYRINGE SQ SCH (09:57)
[2018-01-04 12:13] LABS: Glucose,Whole Blood 122 mg/dL (75-99)
[2018-01-04 13:08] VITALS: BP 111/63; PULSE 47; RESP 20; TEMP 98.1
--- NOTE | 2018-01-04 18:48 | DS ---
DISCHARGE SUMMARY FINAL DIAGNOSES: 1. Crohn disease with acute exacerbation, severe abdominal pain and diarrhea. 2. Chronic rheumatoid arthritis. 3. Chronic pancreatitis. 4. History of protein-calorie malnutrition, moderate. DISCHARGE DISPOSITION: The patient will be discharged in stable condition with a guarded prognosis. HISTORY OF PRESENT ILLNESS: This is a 42-year-old woman with a past medical history who was admitted with Crohn disease acute exacerbation. Patient treated with symptomatically, IV steroids. Gastroenterology saw the patient. The patient improved significantly. EXAM: Vitals are stable. CARDIOVASCULAR: S1, S2 muffled. ABDOMEN: Soft. NERVOUS SYSTEM: No focal deficits. DISCHARGE ADVICE AND MEDICATIONS: Diet is soft, low residue. Activity limited until followup. Follow up with Dr. Dobbins in 2-3 days. Follow up with Dr. Nagy as advised. MEDICATIONS: 1. Humira as advised q.14 days. 2. Fosamax 70 mg as before. 3. Creon 3 capsules a.c. t.i.d. 4. Loratadine 10 mg p.o. daily. 5. Singular 10 mg q.h.s. 6. MS Contin 30 mg p.o. q.8h. 7. MS-IR 15 mg b.i.d. p.r.n. 8. Omeprazole 20 mg p.o. daily. 9. Zofran 8 mg t.i.d. p.r.n. 10.Imitrex 100 mg p.o. daily. 11.Topamax 50 mg p.o. b.i.d. 12.Prednisone taper that will be 40 mg for 7 days, 30 for 7 days, and reduce by 5 mg every 1 week until subsequently 10 days at 10 mg. Once again, the patient discharged in stable condition with guarded prognosis. MMODL / IJN: [id number] /
[2018-01-05] MEDS ORDERED: predniSONE 20 MG TAB PO SCH (09:00)
== END 2018-01-04 14:15 | disposition home or self-care (01) | DRG 385 ==
LOC: EC 13:12 → 4MS4W 17:33 → 6PED 01-02 10:26
PROVIDERS: ADMIT Hospitalist; ATTEND Hospitalist
DX: K51.90 Ulcerative colitis, unspecified, without complications (principal); E43 Unspecified severe protein-calorie malnutrition; F11.20 Opioid dependence, uncomplicated; K86.1 Other chronic pancreatitis; K21.9 Gastro-esophageal reflux disease without esophagitis; M06.9 Rheumatoid arthritis, unspecified; G62.9 Polyneuropathy, unspecified; G89.4 Chronic pain syndrome; M19.90 Unspecified osteoarthritis, unspecified site; Z68.1 Body mass index [BMI] 19.9 or less, adult; Z90.49 Acquired absence of other specified parts of digestive tract; Z86.010 Personal history of colon polyps; Z79.899 Other long term (current) drug therapy; Z88.8 Allergy status to other drugs, medicaments and biological substances; Z79.52 Long term (current) use of systemic steroids; Z79.83 Long term (current) use of bisphosphonates; Z82.49 Family history of ischemic heart disease and other diseases of the circulatory system; Z87.440 Personal history of urinary (tract) infections
CPT/HCPCS: 36415; 74177; 80048; 80053; 81001; 81025; 83036; 83690; 85025; 85027; 85652; 86140; 87086; 96361; 96374; 96375; 96376; 99285

== ENCOUNTER 2018-01-25 19:30 | Inpatient (IN) | payer OTHER ==
[2018-01-25] MEDS ORDERED: ONDANSETRON 4 MG/2 ML VIAL IVP STA (20:44)
[2018-01-25] MEDS ORDERED: SODIUM CHLORIDE 0.9% 1,000 ML IV STA (20:44)
[2018-01-25] MEDS ORDERED: MORPHINE SULFATE 4 MG/ML SYRINGE IV STA (20:44)
[2018-01-25] MEDS ORDERED: FAMOTIDINE 20 MG/2 ML VIAL IV STA (20:45)
--- NOTE | 2018-01-25 20:53 | ED ---
General Adult HPI - General Source: patient, RN notes reviewed Mode of arrival: ambulatory Limitations: no limitations <Eren Banda - Last Filed: 01/25/18 20:45> <Corby Villarreal - Last Filed: 01/25/18 22:58> - General Chief complaint: Abdominal Pain Stated complaint: Crohns Flare Time Seen by Provider: 01/25/18 20:41 - History of Present Illness Initial comments: Patient is a pleasant 42-year-old female presenting to the emergency department with concerns for flareup of her Crohn's disease. Patient did have a flareup 3 weeks ago. Patient did have computed tomography scan done at that time. Patient states symptoms have improved however never fully resolved. Patient states symptoms have slightly worsened the past day or 2. Patient is having nausea and vomiting up to about 3 times a day. Patient is also having diarrhea up to about 3 times per day. No blood. No mucus. Patient is having diffuse abdominal discomfort, more in the upper and left side. Symptoms are similar to previous Crohn's disease. Patient has had some chills however no documented fever. (Eren Banda) - Related Data Home Medications Medication Instructions Recorded Confirmed Alendronate Sodium [Fosamax] 70 mg PO WE 06/07/16 01/25/18 SUMAtriptan SUCCINATE [Imitrex] 100 mg PO DAILY PRN 06/07/16 01/25/18 Omeprazole 20 mg PO DAILY 08/05/16 01/25/18 Ondansetron [Zofran ODT] 8 mg PO TID PRN 08/18/16 01/25/18 Lipase/Protease/Amylase [Thor Ambrocio 3 cap PO AC-TID 09/14/16 01/25/18 24,000 Units Capsule] Loratadine 10 mg PO DAILY 09/14/16 01/25/18 Montelukast Sodium [Singulair] 10 mg PO HS 09/14/16 01/25/18 Morphine Sulfate ER [Ms Contin] 30 mg PO Q8H 09/14/16 01/25/18 Morphine Sulfate Ir [MSIR] 15 mg PO BID PRN 09/14/16 01/25/18 Adalimumab [Humira Pen] 40 mg SQ [id number] 12/25/16 01/25/18 Topiramate [Topamax] 50 mg PO BID 02/02/17 01/25/18 predniSONE 10 mg PO DAILY 01/25/18 01/25/18 Allergies Allergy/AdvReac Type Severity Reaction Status Date / Time metoclopramide [From Reglan] AdvReac Twitching Verified 01/25/18 20:56 Review of Systems ROS Other: All systems not noted in ROS Statement are negative. Constitutional: Reports: chills. Denies: fever Eyes: Denies: eye pain ENT: Denies: ear pain Respiratory: Denies: cough Cardiovascular: Denies: chest pain Endocrine: Denies: fatigue Gastrointestinal: Reports: abdominal pain, nausea, vomiting Genitourinary: Denies: dysuria Musculoskeletal: Denies: back pain Skin: Denies: rash Neurological: Denies: weakness <Eren Banda - Last Filed: 01/25/18 20:45> ROS Other: All systems not noted in ROS Statement are negative. <Corby Villarreal - Last Filed: 01/25/18 22:58> ROS Statement: Those systems with pertinent positive or pertinent negative responses have been documented in the HPI. Past Medical History Past Medical History: Eye Disorder, GERD/Reflux, GI Bleed, Neurologic Disorder, Osteoarthritis (OA), Rheumatoid Arthritis (RA) Additional Past Medical History / Comment(s): Chronic pancreatitis, Crohn's disease, blood in stool, diverticulosis, hx ulcers, frequent UTI'S, hx blood clots in arm, hx anemia, hx kidney failure from dehydration 12 yrs ago, neuropathy, cataracts. History of Any Multi-Drug Resistant Organisms: None Reported Past Surgical History: Cholecystectomy Additional Past Surgical History / Comment(s): colonsocopy, EGD Past Anesthesia/Blood Transfusion Reactions: No Reported Reaction Additional Past Anesthesia/Blood Transfusion Reaction / Comment(s): Has had about 20 blood transfusions. Past Psychological History: No Psychological Hx Reported Smoking Status: Never smoker Past Alcohol Use History: None Reported Past Drug Use History: Marijuana - Past Family History Father Family Medical History: Myocardial Infarction ([place]) Additional Family Medical History / Comment(s): biological father had hx of drug abuse Mother Family Medical History: Hypertension <Eren Banda - Last Filed: 01/25/18 20:45> General Exam Limitations: no limitations General appearance: alert, in no apparent distress Head exam: Present: atraumatic Eye exam: Present: normal appearance, PERRL ENT exam: Present: normal oropharynx Neck exam: Present: normal inspection Respiratory exam: Present: normal lung sounds bilaterally Cardiovascular Exam: Present: regular rate, normal rhythm Expanded Peripheral pulses: 2+: Dorsalis Pedis (R), Dorsalis Pedis (L) GI/Abdominal exam: Present: soft, tenderness (Mild diffuse tenderness. Moderate tenderness in the upper abdomen), normal bowel sounds. Absent: distended, guarding, rebound, rigid, pulsatile mass Extremities exam: Present: normal inspection. Absent: pedal edema, calf tenderness Neurological exam: Present: alert Psychiatric exam: Present: normal affect, normal mood Skin exam: Present: normal color <Eren Banda - Last Filed: 01/25/18 20:45> Course <Eren Banda - Last Filed: 01/25/18 20:45> <Corby Villarreal - Last Filed: 01/25/18 22:58> Vital Signs 01/25/18 01/25/18 19:32 22:34 Temperature 98.5 F Pulse Rate 70 66 Respiratory 18 18 Rate Blood Pressure 97/66 101/50 O2 Sat by Pulse 98 98 Oximetry - Reevaluation(s) Reevaluation #1: 01/25/18 20:53 Patient states she just had a computed tomography scan done 3 weeks ago and would prefer not to have repeat computed tomography scan done at this time. ( Eren Banda) Medical Decision Making <Eren Banda - Last Filed: 01/25/18 20:45> - Lab Data Result diagrams: 01/25/18 21:30 01/25/18 21:30 <Corby Villarreal - Last Filed: 01/25/18 22:58> - Medical Decision Making Patient care sent out to me by previous shift physician. Briefly, patient is a 42-year-old female with past medical history of Crohn's. She takes or morphine by mouth at home for pain control. Patient recently started higher doses of steroids. Laboratory evaluation is unremarkable. Vital signs are stable. X- ray showed signs of ileus. Patient given multiple rounds of IV analgesics with persistent pain. No clear indication for CT imaging at this time. We will plan to have patient observed with consultation to gastroenterology. Patient is understandable and agreeable to this plan. She feels as though that she should not able to manage her pain at home. (Corby Villarreal) - Lab Data Lab Results 01/25/18 01/25/18 01/25/18 Range/Units 21:30 21:30 21:30 WBC 6.8 (3.8-10.6) k/uL RBC 4.55 (3.80-5.40) m/uL Hgb 14.1 (11.4-16.0) gm/dL Hct 42.1 (34.0-46.0) % MCV 92.5 (80.0-100.0) fL MCH 30.9 (25.0-35.0) pg MCHC 33.4 (31.0-37.0) g/dL RDW 13.6 (11.5-15.5) % Plt Count 237 (150-450) k/uL Neutrophils % 69 % Lymphocytes % 22 % Monocytes % 6 % Eosinophils % 1 % Basophils % 0 % Neutrophils # 4.7 (1.3-7.7) k/uL Lymphocytes # 1.5 (1.0-4.8) k/uL Monocytes # 0.4 (0-1.0) k/uL Eosinophils # 0.0 (0-0.7) k/uL Basophils # 0.0 (0-0.2) k/uL PT 10.4 (9.0-12.0) sec INR 1.1 (<1.2) APTT 25.4 (22.0-30.0) sec Sodium 139 (137-145) mmol/L Potassium 4.6 (3.5-5.1) mmol/L Chloride 109 H (98-107) mmol/L Carbon Dioxide 24 (22-30) mmol/L Anion Gap 6 mmol/L BUN 6 L (7-17) mg/dL Creatinine 0.60 (0.52-1.04) mg/dL Est GFR (CKD-EPI)AfAm >90 (>60 ml/min/1.73 sqM) Est GFR (CKD-EPI)NonAf >90 (>60 ml/min/1.73 sqM) Glucose 89 (74-99) mg/dL Calcium 9.9 (8.4-10.2) mg/dL Total Bilirubin 0.6 (0.2-1.3) mg/dL AST 20 (14-36) U/L ALT 24 (9-52) U/L Alkaline Phosphatase 57 (38-126) U/L Total Protein 6.6 (6.3-8.2) g/dL Albumin 4.2 (3.5-5.0) g/dL Amylase 70 (30-110) U/L Lipase 194 (23-300) U/L Urine Color Urine Appearance (Clear) Urine pH (5.0-8.0) Ur Specific [place] (1.001-1.035) Urine Protein (Negative) Urine Glucose (UA) (Negative) Urine Ketones (Negative) Urine Blood (Negative) Urine Nitrite (Negative) Urine Bilirubin (Negative) Urine Urobilinogen (<2.0) mg/dL Ur Leukocyte Esterase (Negative) Urine RBC (0-5) /hpf Urine WBC (0-5) /hpf Ur Squamous Epith Cells (0-4) /hpf Urine Bacteria (None) /hpf Urine Mucus (None) /hpf 01/25/18 Range/Units 21:30 WBC (3.8-10.6) k/uL RBC (3.80-5.40) m/uL Hgb (11.4-16.0) gm/dL Hct (34.0-46.0) % MCV (80.0-100.0) fL MCH (25.0-35.0) pg MCHC (31.0-37.0) g/dL RDW (11.5-15.5) % Plt Count (150-450) k/uL Neutrophils % % Lymphocytes % % Monocytes % % Eosinophils % % Basophils % % Neutrophils # (1.3-7.7) k/uL Lymphocytes # (1.0-4.8) k/uL Monocytes # (0-1.0) k/uL Eosinophils # (0-0.7) k/uL Basophils # (0-0.2) k/uL PT (9.0-12.0) sec INR (<1.2) APTT (22.0-30.0) sec Sodium (137-145) mmol/L Potassium (3.5-5.1) mmol/L Chloride (98-107) mmol/L Carbon Dioxide (22-30) mmol/L Anion Gap mmol/L BUN (7-17) mg/dL Creatinine (0.52-1.04) mg/dL Est GFR (CKD-EPI)AfAm (>60 ml/min/1.73 sqM) Est GFR (CKD-EPI)NonAf (>60 ml/min/1.73 sqM) Glucose (74-99) mg/dL Calcium (8.4-10.2) mg/dL Total Bilirubin (0.2-1.3) mg/dL AST (14-36) U/L ALT (9-52) U/L Alkaline Phosphatase (38-126) U/L Total Protein (6.3-8.2) g/dL Albumin (3.5-5.0) g/dL Amylase (30-110) U/L Lipase (23-300) U/L Urine Color Yellow Urine Appearance Clear (Clear) Urine pH 6.0 (5.0-8.0) Ur Specific [place] 1.011 (1.001-1.035) Urine Protein Negative (Negative) Urine Glucose (UA) Negative (Negative) Urine Ketones Negative (Negative) Urine Blood Trace H (Negative) Urine Nitrite Negative (Negative) Urine Bilirubin Negative (Negative) Urine Urobilinogen <2.0 (<2.0) mg/dL Ur Leukocyte Esterase Negative (Negative) Urine RBC 4 (0-5) /hpf Urine WBC 1 (0-5) /hpf Ur Squamous Epith Cells 1 (0-4) /hpf Urine Bacteria Rare H (None) /hpf Urine Mucus Occasional H (None) /hpf Disposition <Eren Banda - Last Filed: 01/25/18 20:45> Time of Disposition: 22:58 <Corby Villarreal - Last Filed: 01/25/18 22:58> Clinical Impression: Abdominal pain Disposition: ADMITTED IP TO THIS HOSP Condition: Fair Referrals: Derek Dobbins MD [Primary Care Provider] - 1-2 days
[2018-01-25 21:51] LABS: Basophils % (A) 0 %; Eosinophils % (A) 1 %; HCT 42.1 % (34.0-46.0); HGB 14.1 gm/dL (11.4-16.0); Lymphocytes # (A) 1.5 k/uL (1.0-4.8); Lymphocytes % (A) 22 %; MCH 30.9 pg (25.0-35.0); MCHC 33.4 g/dL (31.0-37.0); MCV 92.5 fL (80.0-100.0); Mean Platelet Volume 6.9; Monocytes # (A) 0.4 k/uL (0-1.0); Monocytes % (A) 6 %; Neutrophils # (A) 4.7 k/uL (1.3-7.7); Neutrophils % (A) 69 %; Platelet Count 237 k/uL (150-450); RBC 4.55 m/uL (3.80-5.40); RDW 13.6 % (11.5-15.5); WBC 6.8 k/uL (3.8-10.6)
[2018-01-25 21:54] LABS: Appearance,Urine Clear (Clear); Bacteria,Urine Rare /hpf; Bilirubin,Urine Negative (Negative); Blood,Urine Trace (Negative); Color,Urine Yellow; Glucose,Urine (UA) Negative (Negative); Ketones,Urine Negative (Negative); Leukocyte Esterase,Urine Negative (Negative); Mucus,Urine Occasional /hpf; Nitrite,Urine Negative (Negative); Protein,Urine Negative (Negative); RBC,Urine 4 /hpf (0-5); Specific Gravity,Urine 1.011 (1.001-1.035); Squamous Epithelial Cell,Urine 1 /hpf (0-4); Urobilinogen,Urine <2.0 mg/dL (<2.0); WBC,Urine 1 /hpf (0-5)
[2018-01-25 22:09] LABS: ALT 24 U/L (9-52); AST 20 U/L (14-36); Albumin 4.2 g/dL (3.5-5.0); Alkaline Phosphatase 57 U/L (38-126); Amylase 70 U/L (30-110); Anion Gap 6 mmol/L; Blood Urea Nitrogen 6 mg/dL (7-17); Calcium 9.9 mg/dL (8.4-10.2); Carbon Dioxide 24 mmol/L (22-30); Chloride 109 mmol/L (98-107); Glucose 89 mg/dL (74-99); Lipase 194 U/L (23-300); Potassium 4.6 mmol/L (3.5-5.1); Sodium 139 mmol/L (137-145); Total Bilirubin 0.6 mg/dL (0.2-1.3); Total Protein 6.6 g/dL (6.3-8.2)
[2018-01-25 22:10] LABS: INR 1.1 (<1.2); Partial Thromboplastin Time 25.4 sec (22.0-30.0); Prothrombin Time 10.4 sec (9.0-12.0)
--- NOTE | 2018-01-25 22:37 | XR ---
EXAMINATION TYPE: XR KUB DATE OF EXAM: 01/25/2018 COMPARISON: 07/23/2017 HISTORY: Left side abdominal pain TECHNIQUE: 2 views FINDINGS: There are some gas-filled loops of small bowel in the mid abdomen. There is no sign of inte stinal obstruction or pneumoperitoneum. Lung bases are clear. There are clips from cholecystectomy. F ecal pattern is normal. IMPRESSION: Mild small bowel ileus appears new compared to old exam. No free air.
[2018-01-25] MEDS ORDERED: MORPHINE SULFATE 4 MG/ML SYRINGE IV PRN (22:54)
[2018-01-25] MEDS ORDERED: NALOXONE 0.4 MG/ML 1 ML VIAL IV PRN (22:54)
[2018-01-25] MEDS ORDERED: SODIUM CHLORIDE 0.9% 1,000 ML IV SCH (23:00)
[2018-01-26 00:02] VITALS: BMI 17.4
[2018-01-26] MEDS ORDERED: SUMAtriptan SUCCINATE 50 MG TAB PO PRN (00:21)
[2018-01-26] MEDS: MORPHINE SULFATE ER 30 MG TABLET PO SCH ×3 (02:17→17:04)
[2018-01-26] MEDS: LIPASE 5,000/PROTEASE 17,000/AMYLASE 24,0000 PO SCH ×3 (07:10→17:04)
[2018-01-26] MEDS: HYDROmorphone 1 MG/ML 1 ML SYRINGE IVP PRN ×4 (07:52→20:04)
[2018-01-26] MEDS: TOPIRAMATE 25 MG TAB PO SCH ×2 (08:50→22:09)
[2018-01-26] MEDS: PANTOPRAZOLE 40 MG TABLET PO SCH (08:50)
[2018-01-26] MEDS: LORATADINE 10 MG TAB PO SCH (08:50)
[2018-01-26] MEDS ORDERED: predniSONE 10 MG TAB PO SCH (09:00)
[2018-01-26] MEDS ORDERED: FAMOTIDINE 20 MG TAB PO SCH (09:00)
--- NOTE | 2018-01-26 10:10 | P.CONS ---
History of Present Illness - Reason for Consult Consult date: 01/26/18 abdominal pain Requesting physician: Fabian Healy - History of Present Illness 42-year-old female multiple hospitalizations for abdominal pain with a reported history of Crohn's disease maintained on Humira diagnosed at 16 years of age; diagnosis and workup initiated in [place] as well as in [place] moved to [place] about 18-24 months ago, rheumatoid arthritis, drug-induced pancreatitis chronic abdominal pain recently hospitalized 3 weeks ago with acute abdominal pain suspected exacerbation of IBD placed on prednisone taper. Patient presented yesterday with intense abdominal pain the midabdomen extending down to the bilateral lower quadrants into her hips burning sensation as well as N/V and diarrhea. KUB possible small bowel ileus. EGD/colonoscopy 2017 findings/biopsies did not identify active IBD. CBC normal. Lipase 194. Amylase 70. LFTs normal. Afebrile. Denies hematemesis, hematochezia, or melena. Passing looser nonbloody bowel movements. Review of Systems Constitutional: Denies fever, chills, sweats, weight gain, or loss. HEENT: Negative for migraines, blurred vision or loss, earaches, drainage, tinnitus, oral mucosal lesions, dysphagia, or odynophagia. CARDIAC: Negative for chest pain, arrhythmias, or palpitation. RESPIRATORY: Negative for shortness of breath, hemoptysis, cough, or sputum production. GI: See HPI for pertinent findings. : Negative for hematuria, urgency, frequency, polyuria, or dysuria. GYNc: Denies possibility of . Negative vaginal discharge. MUSCULOSKELETAL: Negative for muscle aches, swelling, arthritis, and arthralgias. NEUROLOGIC: Negative for stroke or TIA. ENDOCRINE: Negative for thyroid problems. SKIN: Negative for rash or itching. PSYCHIATRIC: Negative history for depression and anxiety Past Medical History Past Medical History: Eye Disorder, GERD/Reflux, GI Bleed, Neurologic Disorder, Osteoarthritis (OA), Rheumatoid Arthritis (RA) Additional Past Medical History / Comment(s): Chronic pancreatitis, Crohn's disease, blood in stool, diverticulosis, hx ulcers, frequent UTI'S, hx blood clots in arm, hx anemia, hx kidney failure from dehydration 12 yrs ago, neuropathy, cataracts. History of Any Multi-Drug Resistant Organisms: None Reported Past Surgical History: Cholecystectomy Additional Past Surgical History / Comment(s): colonsocopy, EGD Past Anesthesia/Blood Transfusion Reactions: No Reported Reaction Additional Past Anesthesia/Blood Transfusion Reaction / Comm: Has had about 20 blood transfusions. Past Psychological History: No Psychological Hx Reported Additional Psychological History / Comment(s): . Smoking Status: Never smoker Past Alcohol Use History: None Reported Past Drug Use History: Marijuana Additional Drug Use History / Comment(s): Daily use. - Past Family History Father Family Medical History: Myocardial Infarction ([place]) Additional Family Medical History / Comment(s): biological father had hx of drug abuse Mother Family Medical History: Hypertension Medications and Allergies Home Medications Medication Instructions Recorded Confirmed Type Alendronate Sodium [Fosamax] 70 mg PO WE 06/07/16 01/25/18 History SUMAtriptan SUCCINATE [Imitrex] 100 mg PO DAILY PRN 06/07/16 01/25/18 History Omeprazole 20 mg PO DAILY 08/05/16 01/25/18 History Ondansetron [Zofran ODT] 8 mg PO TID PRN 08/18/16 01/25/18 History Lipase/Protease/Amylase [Thor Dr 3 cap PO AC-TID 09/14/16 01/25/18 History 24,000 Units Capsule] Loratadine 10 mg PO DAILY 09/14/16 01/25/18 History Montelukast Sodium [Singulair] 10 mg PO HS 09/14/16 01/25/18 History Morphine Sulfate ER [Ms Contin] 30 mg PO Q8H 09/14/16 01/25/18 History Morphine Sulfate Ir [MSIR] 15 mg PO BID PRN 09/14/16 01/25/18 History Adalimumab [Humira Pen] 40 mg SQ [id number] 12/25/16 01/25/18 History Topiramate [Topamax] 50 mg PO BID 02/02/17 01/25/18 History predniSONE 10 mg PO DAILY 01/25/18 01/25/18 History Allergies Allergy/AdvReac Type Severity Reaction Status Date / Time metoclopramide [From Reglan] AdvReac Twitching Verified 01/25/18 23:42 Physical Exam Vitals: Vital Signs Temp Pulse Pulse Resp BP BP Pulse Ox 01/26/18 08:49 98.8 F 01/26/18 07:55 62 16 93/55 98 01/26/18 00:02 98.2 F 59 L 16 99 01/26/18 00:00 59 L 16 01/25/18 23:26 97.8 F 63 18 103/52 98 01/25/18 22:34 66 18 101/50 98 01/25/18 19:32 98.5 F 70 18 97/66 98 Intake and Output 01/25/18 01/26/18 01/26/18 22:59 06:59 14:59 Intake Total 120 Balance 120 Intake: Oral 120 Other: Voiding Method Toilet Toilet # Voids 1 # Bowel Movements 1 Weight 45.359 kg 45.9 kg General appearance: The patient is alert, oriented, in no acute distress. HET: Head is normocephalic and atraumatic. Pupils are equal and reactive. Oropharynx is clear without lesions. Neck: Supple without lymphadenopathy. Trachea midline. Heart: S1 S2. Regular rate and rhythm. Lungs: No crackles or wheezes are heard. Abdomen: Soft, diffuse mild tenderness across the midabdomen, nondistended with bowel sounds. No peritoneal signs. No palpable organomegaly or masses. Extremities: Normal skin color and turgor. No cyanosis, rash, ulceration, clubbing, or edema. Radial and pedal pulses are 2/4 bilaterally. Neurological: No focal deficits. Strength and sensation are grossly intact. Results CBC & Chem 7: 01/25/18 21:30 01/25/18 21:30 Labs: Abnormal Lab Results - Last 24 Hours (Table) 01/25/18 01/25/18 Range/Units 21:30 21:30 Chloride 109 H (98-107) mmol/L BUN 6 L (7-17) mg/dL Urine Blood Trace H (Negative) Urine Bacteria Rare H (None) /hpf Urine Mucus Occasional H (None) /hpf Abdominal x-ray: report reviewed (Dr. Nagy) Assessment and Plan (1) Abdominal pain Narrative/Plan: 42-year-old female admitted with acute abdominal pain without fever chills hematemesis hematochezia melena unremarkable CBC and electrolytes pancreatic enzymes. Etiology of her pain is unclear. Patient was recently hospitalized 3 weeks ago and treated for suspected exacerbation of Crohn's ileitis. She provides reported history of Crohn's diagnosed at 16 years of age maintained on Humira as well as drug-induced pancreatitis and rheumatoid arthritis. These medical diagnosis were initially diagnosed in the state [place] many years ago with subsequent follow up in [place] transferred to [place] about 18-24 months ago. EGD colonoscopy a year ago reported no evidence of active inflammatory bowel disease. Etiology of her pain could be chronic pancreatitis even though her pancreatic enzymes are within normal limits. Difficult to say if this is an exacerbation of Crohn's disease; previous workup of inflammatory markers have always been normal. Other differentials consider is IBS. Current Visit: Yes Status: Acute Code(s): R10.9 - UNSPECIFIED ABDOMINAL PAIN SNOMED Code(s): 73514666 Plan: 1. P-ANCA. ASCA. Patient is scheduled to follow up in GI office at the end of the month. Previous medical records are requested by her primary's office to review in regards to her inflammatory bowel disease pancreatitis diagnosis out of state many years ago. 2. Continue with prednisone taper 25 mg daily decrease down by 5 g every 7 days. IV steroids not recommended at this time. Continue with Humira as previously scheduled. Liquid diet as tolerated. Sttol studies; Lactoferrin, calprotectin, Clostridium difficile and culture. 3. Outpatient [facility] tertiary care center referral was discussed at bedside. Will follow with you. Thank you for this kind referral and the opportunity to participate in the care of your patient. This consultation was discussed with Dr. Nagy. The impression and plan of care have been directed as dictated.
[2018-01-26] MEDS: MORPHINE SULFATE IR 15 MG TABLET PO PRN (14:37)
[2018-01-26] MEDS: ONDANSETRON 4 MG/2 ML VIAL IVP PRN (20:03)
--- NOTE | 2018-01-26 20:44 | HP ---
HISTORY AND PHYSICAL DATE OF ADMISSION: 01/26/2018. DATE OF SERVICE: 01/26/2018 PRESENTING COMPLAINT: Abdominal pain, nausea, vomiting, diarrhea. HISTORY OF PRESENTING COMPLAINT: This is a pleasant 42-year-old patient who follows with Dr. Nagy from GI and Dr. Dobbins as her family doctor. Chronic stable medical conditions include osteoarthritis, rheumatoid arthritis, chronic pancreatitis, diverticulosis and peripheral neuropathy. The patient is also on chronic pain medications. The patient did have a colonoscopy by Dr. Nagy the over a year ago and biopsies did show nonspecific colitis, also showed esophagitis, though in the past patient has a diagnosis of Crohn disease. The patient states since last time she was here, she continues to have abdominal pain and loose stools and also was having nausea, vomiting when she presented. The patient tried some clear liquids, but really did not feel like doing the same. Admitted for the same. Dr. Nagy was consulted. REVIEW OF SYSTEMS: CONSTITUTIONAL: Tired. HEENT: None. RESPIRATORY: None. CARDIOVASCULAR: None. GASTROINTESTINAL: As above. GENITOURINARY: None. MUSCULOSKELETAL: Pain in different joints. DERMATOLOGICAL: None. HEMATOLOGIC: None. LYMPHATIC: None. PSYCHIATRY: Anxious. NEUROLOGICAL: None. PAST MEDICAL HISTORY: Questionable Crohn disease, chronic colitis, type unknown; rheumatoid arthritis, chronic pancreatitis, protein-calorie malnutrition, chronic pain syndrome. PAST SURGICAL HISTORY: Cholecystectomy. SOCIAL HISTORY: No smoking, no alcohol, sometimes does marijuana. FAMILY HISTORY: Hypertension. HOME MEDICATIONS: 1. Prednisone 10 mg a day. 2. Topamax 50 mg b.i.d. 3. Imitrex 100 mg p.o. daily p.r.n. 4. Zofran 8 mg p.o. t.i.d. p.r.n. 5. Omeprazole 20 mg p.o. daily. 6. Morphine sulfate immediate release 50 mg p.o. b.i.d. p.r.n. 7. MS Contin 30 mg q.8h. 8. Singulair 10 mg q.h.s. 9. Loratadine 10 mg p.o. daily. 10.Creon 24,000 three capsules p.o. a.c. t.i.d. 11.Fosamax 70 mg on Wednesdays. 12.Humira 40 mg subcu q.14 days. ALLERGY: REGLAN. EXAMINATION: VITAL SIGNS: On presentation, temperature 98.5, pulse 70, respirations 18, blood pressure 97/66, pulse ox 98% on room air. GENERAL APPEARANCE: Thin built, BMI 17.4, sitting up, awake, tired-appearing. EYES: Pupils equal. Conjunctivae pale. HEENT: External nose and ears normal. Oral cavity dry mucous membranes. NECK: JVD not raised. Mass not palpable. RESPIRATORY: Effort normal. LUNGS: Fair air entry. CARDIOVASCULAR: First and second heart sounds normal. No edema. ABDOMEN: Scaphoid. Mild diffuse tenderness. No guarding or rigidity. Liver and spleen not palpable. LYMPHATIC: No lymph node palpable in neck or axillae. PSYCHIATRY: Alert and oriented x3. Mood and affect slightly anxious-appearing. NEUROLOGICAL: Pupils equal. Cranial nerves grossly intact. Power and sensation grossly intact. INVESTIGATION: White count 6.8, hemoglobin 14.1 potassium 4.76, creatinine 0.60. C. diff was negative. X-ray of the abdomen shows some gas-filled loops of small-bowel in the mid abdomen. No obvious evidence of any obstruction. ASSESSMENT: 1. Acute on chronic abdominal pain in the patient has had a prior history of Crohn disease. Colonoscopy last year biopsied showed evidence of some colitis with no other evidence of Crohn disease. The patient has had chronic pain with acute flare- up, also now having diarrhea, nausea, vomiting. 2. Chronic rheumatoid arthritis for which patient is on Humira. 3. Chronic pancreatitis for which patient is on enzyme supplementation. 4. Moderate protein-calorie malnutrition from decreased oral intake. PLAN: Home medications are resumed. Patient is on IV Dilaudid. Dr. Nagy was consulted. Will add IV fluids. The patient will be tried on clear liquids. The patient's Crohn disease diagnosis is not entirely clear. Will send off stool for ova and parasites. MMODL / IJN: [id number] /
[2018-01-26] MEDS ORDERED: MONTELUKAST 10 MG TAB PO SCH (21:00)
[2018-01-27] MEDS: MORPHINE SULFATE ER 30 MG TABLET PO SCH ×3 (02:17→15:02)
[2018-01-27] MEDS: HYDROmorphone 1 MG/ML 1 ML SYRINGE IVP PRN ×2 (04:36→07:59)
[2018-01-27 06:48] LABS: Basophils % (A) 0 %; Eosinophils # (A) 0.1 k/uL (0-0.7); Eosinophils % (A) 1 %; HCT 41.6 % (34.0-46.0); HGB 13.3 gm/dL (11.4-16.0); Lymphocytes # (A) 2.4 k/uL (1.0-4.8); Lymphocytes % (A) 38 %; MCH 30.2 pg (25.0-35.0); MCHC 31.9 g/dL (31.0-37.0); MCV 94.8 fL (80.0-100.0); Mean Platelet Volume 7.2; Monocytes # (A) 0.5 k/uL (0-1.0); Monocytes % (A) 7 %; Neutrophils # (A) 3.1 k/uL (1.3-7.7); Neutrophils % (A) 50 %; Platelet Count 217 k/uL (150-450); RBC 4.39 m/uL (3.80-5.40); RDW 13.6 % (11.5-15.5); WBC 6.2 k/uL (3.8-10.6)
[2018-01-27 07:21] LABS: ALT 20 U/L (9-52); AST 18 U/L (14-36); Albumin 3.5 g/dL (3.5-5.0); Alkaline Phosphatase 51 U/L (38-126); Anion Gap 4 mmol/L; Blood Urea Nitrogen 8 mg/dL (7-17); Calcium 9.2 mg/dL (8.4-10.2); Carbon Dioxide 25 mmol/L (22-30); Chloride 111 mmol/L (98-107); Glucose 76 mg/dL (74-99); Potassium 4.3 mmol/L (3.5-5.1); Sodium 140 mmol/L (137-145); Total Bilirubin 0.9 mg/dL (0.2-1.3); Total Protein 5.7 g/dL (6.3-8.2)
[2018-01-27] MEDS: LACTATED RINGERS 1,000 ML IV SCH ×3 (08:09→14:30)
[2018-01-27] MEDS: LIPASE 5,000/PROTEASE 17,000/AMYLASE 24,0000 PO SCH ×2 (08:09→12:53)
[2018-01-27] MEDS ORDERED: predniSONE 5 MG TAB PO SCH (09:00)
[2018-01-27] MEDS: LORATADINE 10 MG TAB PO SCH (09:37)
[2018-01-27] MEDS: TOPIRAMATE 25 MG TAB PO SCH (09:37)
[2018-01-27] MEDS: PANTOPRAZOLE 40 MG TABLET PO SCH (09:37)
--- NOTE | 2018-01-27 11:15 | P.PN ---
Subjective Progress Note Date: 01/27/18 Principal diagnosis: Abdominal pain Abdominal pain still present tolerating clear liquids. Diet advanced. Afebrile. Additional medical records were reviewed from primary's office and faxed over to the GI office. Reports passage of multiple nonbloody stools no emesis. Lactoferrin and C. diff negative. Objective - Vital Signs Vital signs: Vital Signs Temp 98.0 F 01/27/18 07:55 Pulse 60 01/27/18 07:55 Resp 18 01/27/18 07:55 BP 93/58 01/27/18 07:55 Pulse Ox 99 01/27/18 07:55 Intake & Output 01/26/18 01/27/18 01/27/18 18:59 06:59 18:59 Intake Total 120 Balance 120 Weight 45.9 kg Intake: Oral 120 Other: # Voids 1 2 # Bowel Movements 1 - Exam General appearance: The patient is alert, oriented, in no acute distress. HET: Head is normocephalic and atraumatic. Pupils are equal and reactive. Oropharynx is clear without lesions. Neck: Supple without lymphadenopathy. Trachea midline. Heart: S1 S2. Regular rate and rhythm. Lungs: No crackles or wheezes are heard. Abdomen: Soft, very mild diffuse tenderness across mid abdomen, nondistended with bowel sounds. No peritoneal signs. No palpable organomegaly or masses. Extremities: Normal skin color and turgor. No cyanosis, rash, ulceration, clubbing, or edema. Radial and pedal pulses are 2/4 bilaterally. Neurological: No focal deficits. Strength and sensation are grossly intact. - Labs CBC & Chem 7: 01/27/18 06:03 01/27/18 06:03 Labs: Abnormal Lab Results - Last 24 Hours (Table) 01/27/18 Range/Units 06:03 Chloride 111 H (98-107) mmol/L Total Protein 5.7 L (6.3-8.2) g/dL Microbiology - Last 24 Hours (Table) 01/26/18 13:18 Stool Culture - Preliminary Stool Assessment and Plan (1) Abdominal pain Narrative/Plan: 42-year-old female admitted with acute abdominal pain without fever chills hematemesis hematochezia melena unremarkable CBC and electrolytes pancreatic enzymes. Etiology of her pain is unclear. Patient was recently hospitalized 3 weeks ago and treated for suspected exacerbation of Crohn's ileitis. She provides reported history of Crohn's diagnosed at 16 years of age maintained on Humira as well as drug-induced pancreatitis and rheumatoid arthritis. These medical diagnosis were initially diagnosed in the state [facility] many years ago with subsequent follow up in [place] transferred to [place] about 18-24 months ago. EGD colonoscopy a year ago reported no evidence of active inflammatory bowel disease. Etiology of her pain could be chronic pancreatitis even though her pancreatic enzymes are within normal limits. Difficult to say if this is an exacerbation of Crohn's disease; previous workup of inflammatory markers have always been normal. Other differentials consider is IBS. Current Visit: Yes Status: Acute Code(s): R10.9 - UNSPECIFIED ABDOMINAL PAIN SNOMED Code(s): 44271096 Plan: 1. Agreeable for discharge. Follow-up in office in 2 weeks for reevaluation. Continue with prednisone taper as previously advised. Diet as tolerated. Assessment and plan a care discussed with Dr. Nagy
[2018-01-27] MEDS: MORPHINE SULFATE IR 15 MG TABLET PO PRN (11:17)
[2018-01-27] MEDS: ONDANSETRON 4 MG/2 ML VIAL IVP PRN (11:17)
[2018-01-27 14:04] LABS: C-ANCA <1:20 Titer (<1:20); P-ANCA <1:20 Titer (<1:20)
[2018-01-27 15:06] VITALS: BP 101/60; PULSE 69; RESP 16; TEMP 98.8
[2018-01-30 14:40] LABS: Saccharomyces cerevisiae IgA 4.5 UNITS (<=20)
[2018-02-01] MEDS ORDERED: NON-FORMULARY DRUG (Alendronate Sodium [Fosamax] 70 MG) PO SCH (00:21)
--- NOTE | 2018-02-01 12:44 | DS ---
DISCHARGE SUMMARY DATE OF ADMISSION: 01/25/2018 DATE OF DISCHARGE: 01/27/2018 FINAL DIAGNOSES: 1. Acute on chronic abdominal pain with a flare up of possible nonspecific colitis. 2. History of Crohn's disease. 3. Chronic rheumatoid arthritis in multiple joints bilateral for which patient is chronically on Humira. 4. Chronic pancreatitis with enzyme supplementation. 5. Moderate protein-calorie malnutrition from decreased oral intake. HOSPITAL COURSE: This is a patient who has got multiple medical problems, does follow up with Dr. Nagy. Did have a biopsy about a year ago, showed nonspecific colitis, some esophagitis and in the past, had a diagnosis of Crohn's disease, yet again presents with acute on chronic flare up of abdominal pain, some loose stools, nausea, vomiting. Patient's c-ANCA and p-ANCA are both negative. C diff was negative. Diet was advanced as per GI and they will see the patient as an outpatient. Patient was doing better at the time of discharge. Care was discussed with her. PHYSICAL EXAMINATION: Temperature 98.8, pulse 69, blood pressure 101/60, pulse ox 99% on room air. ABDOMEN: Soft, minimal tenderness. No guarding or rigidity. White count was 6.2, hemoglobin 13.3. Day of discharge did discuss with Roxy from GI before discharge. DISCHARGE MEDICATIONS: 1. Fosamax 30 mg p.o. on Wednesdays. 2. Imitrex 100 mg daily p.r.n. 3. Omeprazole 20 mg p.o. daily. 4. Zofran 8 mg t.i.d. p.r.n. 5. Creon 24,000 capsule, 3 capsules p.o. a.c. t.i.d. 6. Claritin 10 mg p.o. daily. 7. Singulair 10 mg p.o. q.h.s. 8. MS Contin 30 mg p.o. q8. 9. Morphine sulfate immediate release 50 mg p.o. b.i.d. p.r.n. 10.Humira 40 mg subcu every 14 days. 11.Topamax 50 mg p.o. b.i.d. 12.Steroids per GI. FOLLOWUP: Follow up with Dr. Nagy on 02/13/2018, follow up with Dr. Dobbins on 01/30/2018. DIET: [place] food as advised. MMODL / IJN: [id number] /
[2018-02-07] MEDS ORDERED: ADALIMUMAB 80 MG/1.6 ML KIT SQ SCH (09:00)
== END 2018-01-27 15:49 | disposition home or self-care (01) | DRG 386 ==
LOC: EC 19:30 → 6PED 22:54 → OBSVTOIN 22:54 → 3SUR 01-27 15:47
PROVIDERS: ADMIT Hospitalist; ATTEND Hospitalist
DX: K50.90 Crohn's disease, unspecified, without complications (principal); E44.0 Moderate protein-calorie malnutrition; K86.1 Other chronic pancreatitis; G62.9 Polyneuropathy, unspecified; G89.4 Chronic pain syndrome; K21.0 Gastro-esophageal reflux disease with esophagitis; K57.90 Diverticulosis of intestine, part unspecified, without perforation or abscess without bleeding; M06.9 Rheumatoid arthritis, unspecified; M19.90 Unspecified osteoarthritis, unspecified site; Z79.83 Long term (current) use of bisphosphonates; Z79.899 Other long term (current) drug therapy; Z82.49 Family history of ischemic heart disease and other diseases of the circulatory system; Z87.440 Personal history of urinary (tract) infections; Z81.3 Family history of other psychoactive substance abuse and dependence; Z88.8 Allergy status to other drugs, medicaments and biological substances; Z79.52 Long term (current) use of systemic steroids
CPT/HCPCS: 36415; 74018; 80053; 81001; 82150; 83630; 83690; 83993; 85025; 85610; 85730; 86255; 86671; 87045; 87046; 87324; 96361; 96374; 96375; 99285

== ENCOUNTER 2018-02-26 20:29 | Inpatient (IN) | payer OTHER ==
[2018-02-26] MEDS ORDERED: ONDANSETRON 4 MG/2 ML VIAL IVP STA (20:58)
[2018-02-26] MEDS ORDERED: MORPHINE SULFATE 4 MG/ML SYRINGE IV STA (20:58)
[2018-02-26] MEDS ORDERED: SODIUM CHLORIDE 0.9% 2,000 ML IV STA (20:58)
--- NOTE | 2018-02-26 21:03 | ED ---
Abdominal Pain HPI - General Chief Complaint: Abdominal Pain Stated Complaint: NVD Time Seen by Provider: 02/26/18 20:48 Source: patient Mode of arrival: ambulatory Limitations: no limitations - History of Present Illness Initial Comments: Patient is a 42-year-old female presenting for abdominal pain. She states that she has a history of Crohn's disease and that she is also take Humira every 2 weeks but that she has missed it for a month. She started having abdominal pain as well as nausea/vomiting/diarrhea this morning. The abdominal pain is more localized to left-sided is constant feels a burning/sharp sensation. There is radiation of the pain to the hip and is worse with by mouth intake. She denies any fever missed the chills and also denies any urinary symptoms. - Related Data Home Medications Medication Instructions Recorded Confirmed Alendronate Sodium [Fosamax] 70 mg PO WE 06/07/16 02/26/18 SUMAtriptan SUCCINATE [Imitrex] 100 mg PO DAILY PRN 06/07/16 02/26/18 Omeprazole 20 mg PO DAILY 08/05/16 02/26/18 Ondansetron [Zofran ODT] 8 mg PO TID PRN 08/18/16 02/26/18 Lipase/Protease/Amylase [Thor Ambrocio 3 cap PO AC-TID 09/14/16 02/26/18 24,000 Units Capsule] Loratadine 10 mg PO DAILY 09/14/16 02/26/18 Montelukast Sodium [Singulair] 10 mg PO HS 09/14/16 02/26/18 Morphine Sulfate ER [Ms Contin] 30 mg PO Q8H 09/14/16 02/26/18 Morphine Sulfate Ir [MSIR] 15 mg PO BID PRN 09/14/16 02/26/18 Adalimumab [Humira Pen] 40 mg SQ [id number] 12/25/16 02/26/18 Topiramate [Topamax] 50 mg PO BID 02/02/17 02/26/18 Allergies Allergy/AdvReac Type Severity Reaction Status Date / Time metoclopramide [From Reglan] AdvReac Twitching Verified 02/26/18 20:45 Review of Systems ROS Statement: Those systems with pertinent positive or pertinent negative responses have been documented in the HPI. Constitutional: Negative for chills, fatigue and fever. HENT: Negative for congestion. Respiratory: Negative for chest tightness, shortness of breath and wheezing. Negative for cough Cardiovascular: Negative for chest pain and palpitations. Gastrointestinal: Positive for abdominal pain. Positive for abdominal diarrhea , nausea and vomiting. Genitourinary: Negative for dysuria. Musculoskeletal: Negative for back pain, neck pain and neck stiffness. Skin: Negative for color change. Neurological: Negative for dizziness, speech difficulty, weakness and light- headedness. Psychiatric/Behavioral: Negative for agitation and confusion. Negative for anxiety ROS Other: All systems not noted in ROS Statement are negative. Past Medical History Past Medical History: Eye Disorder, GERD/Reflux, GI Bleed, Neurologic Disorder, Osteoarthritis (OA), Rheumatoid Arthritis (RA) Additional Past Medical History / Comment(s): Chronic pancreatitis, Crohn's disease, blood in stool, diverticulosis, hx ulcers, frequent UTI'S, hx blood clots in arm, hx anemia, hx kidney failure from dehydration 12 yrs ago, neuropathy, cataracts. History of Any Multi-Drug Resistant Organisms: None Reported Past Surgical History: Cholecystectomy Additional Past Surgical History / Comment(s): colonsocopy, EGD Past Anesthesia/Blood Transfusion Reactions: No Reported Reaction Additional Past Anesthesia/Blood Transfusion Reaction / Comment(s): Has had about 20 blood transfusions. Past Psychological History: No Psychological Hx Reported Smoking Status: Never smoker Past Alcohol Use History: None Reported Past Drug Use History: Marijuana - Past Family History Father Family Medical History: Myocardial Infarction (AR) Additional Family Medical History / Comment(s): biological father had hx of drug abuse Mother Family Medical History: Hypertension General Exam - General Exam Comments Initial Comments: Constitutional: Pt is oriented to person, place, and time. Pt appears well- developed and well-nourished. No distress. HENT: Head: Normocephalic and atraumatic. Eyes: EOM are normal. Neck: Normal range of motion. Neck supple. Cardiovascular: Normal rate, regular rhythm, S1 normal, S2 normal and normal heart sounds. Exam reveals no gallop and no friction rub. No murmur heard. Pulmonary/Chest: Effort normal and breath sounds normal. No tachypnea and no bradypnea. No respiratory distress. No wheezes or rales noted. Abdominal: Soft. Bowel sounds are normal. Pt exhibits no shifting dullness, no distension, no pulsatile liver, no fluid wave, no abdominal bruit and no ascites. Positive for generalized abdominal tenderness and voluntary guarding. There is no rigidity, no rebound, no guarding, no tenderness at McBurney's point and negative Henriquez's sign. Musculoskeletal: Normal range of motion. Neurological: Pt is alert and oriented to person, place, and time. No cranial nerve deficit. Skin: Skin is warm and dry. No rash noted. Pt is not diaphoretic. No erythema. No pallor. Psychiatric: Pt has a normal mood and affect. Pt behavior is normal. Thought content normal. Limitations: no limitations Course Vital Signs 02/26/18 02/26/18 02/26/18 20:42 22:43 23:16 Temperature 98 F Pulse Rate 49 L 50 L 79 Respiratory 20 20 18 Rate Blood Pressure 105/64 125/61 125/57 O2 Sat by Pulse 99 100 98 Oximetry Medical Decision Making - Medical Decision Making Laboratory studies showed that there is leukocytosis of 12.6 but there is no evidence of transaminitis and lactic acid is within normal limits. Additionally , there is no evidence of pancreatitis and CT of the abdomen was performed and showed that there was a small amount of free fluid in the pelvis is new compared to old exam. There is clearing of the small cyst of the left ovary compared to the old exam. There is evidence of bilateral ovarian varicose veins and more on the left side. It is unclear whether these findings are attributed to the patient's pain as the patient's pain appears to be consistent with the same pain that she had on prior visits. Because the pain was not well controlled with multiple doses of narcotics the patient was still actively vomiting, patient will be placed in observation for continued treatment. - Lab Data Result diagrams: 02/26/18 21:28 02/26/18 21:28 Lab Results 02/26/18 02/26/18 02/26/18 Range/Units 21:28 21:28 21:28 WBC 12.6 H (3.8-10.6) k/uL RBC 5.18 (3.80-5.40) m/uL Hgb 16.1 H (11.4-16.0) gm/dL Hct 49.3 H (34.0-46.0) % MCV 95.3 (80.0-100.0) fL MCH 31.0 (25.0-35.0) pg MCHC 32.6 (31.0-37.0) g/dL RDW 13.7 (11.5-15.5) % Plt Count 254 (150-450) k/uL Neutrophils % 82 % Lymphocytes % 11 % Monocytes % 5 % Eosinophils % 0 % Basophils % 0 % Neutrophils # 10.4 H (1.3-7.7) k/uL Lymphocytes # 1.4 (1.0-4.8) k/uL Monocytes # 0.6 (0-1.0) k/uL Eosinophils # 0.0 (0-0.7) k/uL Basophils # 0.0 (0-0.2) k/uL Sodium 141 (137-145) mmol/L Potassium 4.5 (3.5-5.1) mmol/L Chloride 105 (98-107) mmol/L Carbon Dioxide 22 (22-30) mmol/L Anion Gap 14 mmol/L BUN 17 (7-17) mg/dL Creatinine 0.77 (0.52-1.04) mg/dL Est GFR (CKD-EPI)AfAm >90 (>60 ml/min/1.73 sqM) Est GFR (CKD-EPI)NonAf >90 (>60 ml/min/1.73 sqM) Glucose 106 H (74-99) mg/dL Plasma Lactic Acid [place] 1.9 (0.7-2.0) mmol/L Calcium 11.0 H (8.4-10.2) mg/dL Total Bilirubin 1.2 (0.2-1.3) mg/dL AST 20 (14-36) U/L ALT 20 (9-52) U/L Alkaline Phosphatase 86 (38-126) U/L Total Protein 8.2 (6.3-8.2) g/dL Albumin 5.1 H (3.5-5.0) g/dL Lipase 112 (23-300) U/L Urine Color Urine Appearance (Clear) Urine pH (5.0-8.0) Ur Specific [place] (1.001-1.035) Urine Protein (Negative) Urine Glucose (UA) (Negative) Urine Ketones (Negative) Urine Blood (Negative) Urine Nitrite (Negative) Urine Bilirubin (Negative) Urine Urobilinogen (<2.0) mg/dL Ur Leukocyte Esterase (Negative) Urine RBC (0-5) /hpf Urine WBC (0-5) /hpf Ur Squamous Epith Cells (0-4) /hpf Urine Bacteria (None) /hpf Urine HCG, Qual (Not Detectd) 02/26/18 02/26/18 Range/Units 23:18 23:18 WBC (3.8-10.6) k/uL RBC (3.80-5.40) m/uL Hgb (11.4-16.0) gm/dL Hct (34.0-46.0) % MCV (80.0-100.0) fL MCH (25.0-35.0) pg MCHC (31.0-37.0) g/dL RDW (11.5-15.5) % Plt Count (150-450) k/uL Neutrophils % % Lymphocytes % % Monocytes % % Eosinophils % % Basophils % % Neutrophils # (1.3-7.7) k/uL Lymphocytes # (1.0-4.8) k/uL Monocytes # (0-1.0) k/uL Eosinophils # (0-0.7) k/uL Basophils # (0-0.2) k/uL Sodium (137-145) mmol/L Potassium (3.5-5.1) mmol/L Chloride (98-107) mmol/L Carbon Dioxide (22-30) mmol/L Anion Gap mmol/L BUN (7-17) mg/dL Creatinine (0.52-1.04) mg/dL Est GFR (CKD-EPI)AfAm (>60 ml/min/1.73 sqM) Est GFR (CKD-EPI)NonAf (>60 ml/min/1.73 sqM) Glucose (74-99) mg/dL Plasma Lactic Acid [place] (0.7-2.0) mmol/L Calcium (8.4-10.2) mg/dL Total Bilirubin (0.2-1.3) mg/dL AST (14-36) U/L ALT (9-52) U/L Alkaline Phosphatase (38-126) U/L Total Protein (6.3-8.2) g/dL Albumin (3.5-5.0) g/dL Lipase (23-300) U/L Urine Color Yellow Urine Appearance Clear (Clear) Urine pH 7.0 (5.0-8.0) Ur Specific [place] >1.050 H (1.001-1.035) Urine Protein 1+ H (Negative) Urine Glucose (UA) Negative (Negative) Urine Ketones 3+ H (Negative) Urine Blood Negative (Negative) Urine Nitrite Negative (Negative) Urine Bilirubin Negative (Negative) Urine Urobilinogen <2.0 (<2.0) mg/dL Ur Leukocyte Esterase Negative (Negative) Urine RBC 1 (0-5) /hpf Urine WBC <1 (0-5) /hpf Ur Squamous Epith Cells 4 (0-4) /hpf Urine Bacteria Rare H (None) /hpf Urine HCG, Qual Not Detected (Not Detectd) Disposition Clinical Impression: Intractable abdominal pain, Intractable vomiting Disposition: ADMITTED IP TO THIS HOSP Condition: Good Instructions: Abdominal Pain (ED) Referrals: Derek Dobbins MD [Primary Care Provider] - 1-2 days Decision to Admit Reason: Admit from EC Decision Date: 02/26/18 Decision Time: 23:57
[2018-02-26] MEDS: SODIUM CHLORIDE 0.9% 1,000 ML IV STA (21:42)
[2018-02-26 21:44] LABS: Basophils % (A) 0 %; Eosinophils % (A) 0 %; HCT 49.3 % (34.0-46.0); HGB 16.1 gm/dL (11.4-16.0); Lymphocytes # (A) 1.4 k/uL (1.0-4.8); Lymphocytes % (A) 11 %; MCHC 32.6 g/dL (31.0-37.0); MCV 95.3 fL (80.0-100.0); Mean Platelet Volume 6.7; Monocytes # (A) 0.6 k/uL (0-1.0); Monocytes % (A) 5 %; Neutrophils # (A) 10.4 k/uL (1.3-7.7); Neutrophils % (A) 82 %; Platelet Count 254 k/uL (150-450); RBC 5.18 m/uL (3.80-5.40); RDW 13.7 % (11.5-15.5); WBC 12.6 k/uL (3.8-10.6)
[2018-02-26 21:59] LABS: ALT 20 U/L (9-52); AST 20 U/L (14-36); Albumin 5.1 g/dL (3.5-5.0); Alkaline Phosphatase 86 U/L (38-126); Anion Gap 14 mmol/L; Blood Urea Nitrogen 17 mg/dL (7-17); Carbon Dioxide 22 mmol/L (22-30); Chloride 105 mmol/L (98-107); Glucose 106 mg/dL (74-99); Lipase 112 U/L (23-300); Potassium 4.5 mmol/L (3.5-5.1); Sodium 141 mmol/L (137-145); Total Bilirubin 1.2 mg/dL (0.2-1.3); Total Protein 8.2 g/dL (6.3-8.2)
[2018-02-26] MEDS ORDERED: PROCHLORPERAZINE 5 MG TAB PO STA (22:23)
[2018-02-26] MEDS ORDERED: HYDROmorphone 0.5 MG/0.5 ML SYRINGE IVP STA (22:23)
--- NOTE | 2018-02-26 22:25 | CT ---
EXAMINATION TYPE: CT abdomen pelvis w con DATE OF EXAM: 02/26/2018 COMPARISON: 01/01/2018 HISTORY: Abdominal pain and vomiting, hx of crohns CT DLP: 208.7 mGycm Automated exposure control for dose reduction was used. TECHNIQUE: Helical acquisition of images was performed from the lung bases through the pelvis. CONTRAST: Performed without Oral Contrast and with IV Contrast, patient injected with 100 mL of Isovue 300. FINDINGS: There is minimal linear density at the left posterior lung base. There is no pleural effusion. Heart size is normal. Liver spleen pancreas appear normal. Bile ducts are not dilated. There is no adrenal mass. There is 2 cm cyst on the upper pole left kidney. There is small cortical cysts on the right kidney. There is n o hydronephrosis. There is no evidence of a solid renal mass. There is no retroperitoneal adenopathy. There is small amount of free fluid in the cul-de-sac. Bladder distends smoothly. There is no eviden ce of a pelvic mass. There is 1.3 cm cyst on the right ovary. There is no evidence of appendicitis. Appendix measures 6 mm. There is no evidence of a bowel obstruc tion. There is no free air. Lumbar spine is intact. I see no definite intestinal wall thickening. The re are some varicose veins at both adnexa. IMPRESSION: THERE IS A SMALL AMOUNT OF FREE FLUID IN THE PELVIS THAT IS NEW COMPARED TO OLD EXAM. THERE IS CLEARI NG OF A SMALL CYST ON THE LEFT OVARY COMPARED TO OLD EXAM. THERE IS EVIDENCE OF BILATERAL OVARIAN MARIN ICOSE VEINS AND MORE ON THE LEFT SIDE. THIS IS SIMILAR TO OLD EXAM. NO EVIDENCE OF APPENDICITIS. SMAL L BILATERAL RENAL CORTICAL CYSTS. THERE IS A NEW RIGHT OVARY THICK-WALLED CYST COMPARED TO LAST EXAM. I DO NOT SEE SPECIFIC EVIDENCE OF CROHN'S DISEASE. EXAM IS LIMITED BY LACK OF ORAL CONTRAST.
[2018-02-26] MEDS ORDERED: MAG HYDROX/AL HYDROX/SIMETH 30 ML, HYOSCYAMINE ELIXIR 10 ML, CIMETIDINE HCL 300 MG, LID... PO STA ×4 (23:49)
[2018-02-26 23:53] LABS: Appearance,Urine Clear (Clear); Bacteria,Urine Rare /hpf; Bilirubin,Urine Negative (Negative); Blood,Urine Negative (Negative); Color,Urine Yellow; Glucose,Urine (UA) Negative (Negative); Ketones,Urine 3+ (Negative); Leukocyte Esterase,Urine Negative (Negative); Nitrite,Urine Negative (Negative); Protein,Urine 1+ (Negative); RBC,Urine 1 /hpf (0-5); Squamous Epithelial Cell,Urine 4 /hpf (0-4); Urobilinogen,Urine <2.0 mg/dL (<2.0); WBC,Urine <1 /hpf (0-5)
[2018-02-26 23:54] LABS: Specific Gravity,Urine >1.050 (1.001-1.035)
[2018-02-26] MEDS ORDERED: NALOXONE 0.4 MG/ML 1 ML VIAL IV PRN (23:58)
[2018-02-27 00:33] VITALS: BMI 17.7
[2018-02-27] MEDS: HYDROmorphone 1 MG/ML 1 ML SYRINGE IVP PRN ×6 (00:53→19:52)
[2018-02-27] MEDS: ONDANSETRON 4 MG/2 ML VIAL IVP PRN ×3 (04:41→19:53)
[2018-02-27] MEDS ORDERED: MORPHINE SULFATE IR 15 MG TABLET PO PRN (06:52)
[2018-02-27] MEDS ORDERED: SUMAtriptan SUCCINATE 50 MG TAB PO PRN (06:52)
[2018-02-27] MEDS: PANTOPRAZOLE 40 MG TABLET PO SCH (07:55)
[2018-02-27] MEDS: MORPHINE SULFATE ER 30 MG TABLET PO SCH ×2 (07:55→17:08)
[2018-02-27] MEDS: TOPIRAMATE 25 MG TAB PO SCH ×2 (07:56→23:10)
[2018-02-27] MEDS: LORATADINE 10 MG TAB PO SCH (07:56)
[2018-02-27] MEDS: LIPASE 5,000/PROTEASE 17,000/AMYLASE 24,000 PO SCH ×3 (07:58→18:23)
--- NOTE | 2018-02-27 17:58 | P.CONS ---
History of Present Illness - Reason for Consult Consult date: 02/27/18 History Crohn's disease, abdominal pain, diarrhea Requesting physician: Fabian Healy - Chief Complaint Abdominal pain - History of Present Illness The patient is a 42-year-old female with a history of Crohn's disease on biologic therapy, chronic pancreatitis, and rheumatoid arthritis who presents to the hospital with complaints of abdominal pain. The patient reports that the pain is a pressure-like and burning sensation in both the epigastric area of her abdomen as well as in the lower abdomen. She associates pain with radiation into her back and feels that it is worse with eating and vomiting. She has a history of chronic pancreatitis and is on pancreatic enzyme replacement therapy. The patient also has a long-standing history of Crohn's disease for over 20 years which she reports as uncomplicated with no prior episodes of stricturing, structure and or perianal disease. The patient has been on Humira therapy as well as multiple other medications and the plastic including 6 mercaptopurine, and multiple cycles of steroid therapy. She reports associated nausea and vomiting with the current episode of pain. She states that she has been unable to hold anything down. She also has had diarrhea with increased frequency of loose stools with no hematochezia or melena reported. The patient's last colonoscopy was in August 2016 and was essentially normal. No rashes, change in vision, pain in her eyes or other concerns reported. Past endoscopic history: Colonoscopy 08/2016 within normal limits, with no evidence of active disease. Review of Systems REVIEW OF SYSTEMS: CARDIOPULMONARY: Denies chest pain or shortness of breath. GENITOURINARY: No dysuria or hematuria. MUSCULOSKELETAL: No weakness reported. SKIN: Denies any new rashes or lesions, jaundice or pallor. PSYCHIATRIC: Denies any depression or anxiety. NEUROLOGY: Denies headache, denies any new focal deficits. EARS: No tinnitus, discharge or new hearing loss. NOSE: No discharge or congestion. EYES: No pain in eyes or change in vision. CONSTITUTIONAL: No recent weight loss. No fever, chills, night sweats. Past Medical History Past Medical History: Eye Disorder, GERD/Reflux, GI Bleed, Neurologic Disorder, Osteoarthritis (OA), Rheumatoid Arthritis (RA) Additional Past Medical History / Comment(s): Chronic pancreatitis, Crohn's disease, blood in stool, diverticulosis, hx ulcers, frequent UTI'S, hx blood clots in arm, hx anemia, hx kidney failure from dehydration 12 yrs ago, neuropathy, cataracts. History of Any Multi-Drug Resistant Organisms: None Reported Past Surgical History: Cholecystectomy Additional Past Surgical History / Comment(s): colonsocopy, EGD Past Anesthesia/Blood Transfusion Reactions: No Reported Reaction Additional Past Anesthesia/Blood Transfusion Reaction / Comm: Has had about 20 blood transfusions. Past Psychological History: No Psychological Hx Reported Additional Psychological History / Comment(s): . Smoking Status: Never smoker Past Alcohol Use History: None Reported Past Drug Use History: Marijuana Additional Drug Use History / Comment(s): Daily use. - Past Family History Father Family Medical History: Myocardial Infarction ([place]) Additional Family Medical History / Comment(s): biological father had hx of drug abuse Mother Family Medical History: Hypertension Medications and Allergies Home Medications Medication Instructions Recorded Confirmed Type Alendronate Sodium [Fosamax] 70 mg PO WE 06/07/16 02/27/18 History SUMAtriptan SUCCINATE [Imitrex] 100 mg PO DAILY PRN 06/07/16 02/27/18 History Omeprazole 20 mg PO DAILY 08/05/16 02/27/18 History Ondansetron [Zofran ODT] 8 mg PO TID PRN 08/18/16 02/27/18 History Lipase/Protease/Amylase [Thor Dr 3 cap PO AC-TID 09/14/16 02/27/18 History 24,000 Units Capsule] Loratadine 10 mg PO DAILY 09/14/16 02/27/18 History Montelukast Sodium [Singulair] 10 mg PO HS 09/14/16 02/27/18 History Morphine Sulfate ER [Ms Contin] 30 mg PO Q8H 09/14/16 02/27/18 History Morphine Sulfate Ir [MSIR] 15 mg PO BID PRN 09/14/16 02/27/18 History Adalimumab [Humira Pen] 40 mg SQ [id number] 12/25/16 02/27/18 History Topiramate [Topamax] 50 mg PO BID 02/02/17 02/27/18 History Allergies Allergy/AdvReac Type Severity Reaction Status Date / Time metoclopramide [From Reglan] AdvReac Twitching Verified 02/27/18 08:29 Physical Exam Vitals: Vital Signs Temp Pulse Pulse Pulse Resp BP BP 02/27/18 16:10 99.1 F 02/27/18 15:00 100.4 F H 53 L 15 117/68 02/27/18 12:52 98.8 F 46 L 18 112/64 02/27/18 00:25 97.6 F 42 L 18 129/69 02/27/18 00:20 43 L 02/27/18 00:07 53 L 18 137/62 02/26/18 23:16 79 18 125/57 02/26/18 22:43 50 L 20 125/61 02/26/18 20:42 98 F 49 L 20 105/64 Pulse Ox 02/27/18 16:10 02/27/18 15:00 98 02/27/18 12:52 98 02/27/18 00:25 100 02/27/18 00:20 02/27/18 00:07 99 02/26/18 23:16 98 02/26/18 22:43 100 02/26/18 20:42 99 Intake and Output 02/27/18 02/27/18 02/27/18 06:59 14:59 22:59 Output Total 1 Balance -1 Output: Emesis 1 Other: # Voids 1 2 # Emeses 1 Weight 45.5 kg 45.5 kg Results CBC & Chem 7: 02/26/18 21:28 02/26/18 21:28 Labs: Abnormal Lab Results - Last 24 Hours (Table) 02/26/18 02/26/18 02/26/18 Range/Units 21:28 21:28 23:18 WBC 12.6 H (3.8-10.6) k/uL Hgb 16.1 H (11.4-16.0) gm/dL Hct 49.3 H (34.0-46.0) % Neutrophils # 10.4 H (1.3-7.7) k/uL Glucose 106 H (74-99) mg/dL Calcium 11.0 H (8.4-10.2) mg/dL Albumin 5.1 H (3.5-5.0) g/dL Ur Specific [place] >1.050 H (1.001-1.035) Urine Protein 1+ H (Negative) Urine Ketones 3+ H (Negative) Urine Bacteria Rare H (None) /hpf CT scan - abdomen: pending (Multiple nonspecific findings with no findings related to history of Crohn's disease on CT abdomen.) Assessment and Plan (1) Intractable abdominal pain Narrative/Plan: Unclear if this is related to patient's history of chronic pancreatitis, inflammatory bowel disease or functional pain. Symptoms are very broad. No findings on CT to suggest any acute gastrointestinal pathology such as obstruction, ileus or inflammation. Current Visit: Yes Status: Acute Code(s): R10.9 - UNSPECIFIED ABDOMINAL PAIN SNOMED Code(s): 35941636 (2) Diarrhea Narrative/Plan: No signs on computed tomography scan of inflammation associated with Crohn's disease. We'll rule out infection. Current Visit: Yes Status: Acute Code(s): R19.7 - DIARRHEA, UNSPECIFIED SNOMED Code(s): 29544201 (3) Chronic pancreatitis Narrative/Plan: Patient on enzyme replacement therapy at home. Chronic pancreatitis is believed to be secondary to a medication effect. Current Visit: No Status: Acute Code(s): K86.1 - OTHER CHRONIC PANCREATITIS SNOMED Code(s): 982241290 (4) Crohns disease Narrative/Plan: Long-standing history of uncomplicated disease not requiring surgeries in the past and the patient is currently on biologic therapy with Humira. She has required multiple cycles of steroids in the past. Last colonoscopy in 2017 did not show active disease. Current Visit: No Status: Chronic Code(s): K50.90 - CROHN'S DISEASE, UNSPECIFIED, WITHOUT COMPLICATIONS SNOMED Code(s): 25764989 Plan: Supportive care Diet as tolerated Inflammatory markers, ESR and CRP, ordered Stool Studies ordered Agree with holding off on steroid therapy at this time. The patient reports being off of Humira for one month due to insurance reasons. She has subsequently been able to take 2 doses with her last dose within the last week. Patient to continue enzyme supplementation for chronic pancreatitis with meals Thank you for allowing us to participate in the care of this patient, we will continue to follow.
[2018-02-27] MEDS: SODIUM CHLORIDE 0.9% 1,000 ML IV STA (18:24)
--- NOTE | 2018-02-27 19:59 | HP ---
HISTORY AND PHYSICAL DATE OF ADMISSION: 02/26/18 DATE OF SERVICE: 02/27/18. PRESENTING COMPLAINT: Abdominal pain, nausea and vomiting. HISTORY OF PRESENTING COMPLAINT: This is a 42-year-old patient who follows with Dr. Nagy from and Dr. Dobbins as a family doctor. Chronic stable medical conditions include osteoarthritis, rheumatoid arthritis, chronic pancreatitis, diverticulosis, and peripheral neuropathy. The patient is also on chronic pain medications. Dr. Nagy did a colonoscopy on the patient over a year ago and patient was found to have nonspecific colitis, also showed esophagitis. The patient has been working with a diagnosis of Crohn disease. The patient now presents 1-day history of nausea, vomiting, increasing abdominal pain and multiple loose watery stools. No blood in the stool. No fever or chills. Since she presented she did get IV Dilaudid. The patient has had nausea this morning, but not much vomiting. When I saw the patient this late afternoon last diarrhea was in the morning the patient states. REVIEW OF SYSTEMS: CONSTITUTIONAL: Weak and tired. HEENT: None. RESPIRATORY: None. CARDIOVASCULAR: None. GASTROINTESTINAL: As above. GENITOURINARY: None. MUSCULOSKELETAL: Pain in different joints. DERMATOLOGICAL, HEMATOLOGIC, LYMPHATIC: None. PSYCHIATRY: Anxious. NEUROLOGICAL: Numbness and tingling in hands and feet. PAST MEDICAL HISTORY: Questionable Crohn disease, chronic colitis type unknown, rheumatoid arthritis, chronic pancreatitis, protein calorie malnutrition, chronic pain syndrome. PAST SURGICAL HISTORY: Cholecystectomy. SOCIAL HISTORY: No smoking, no alcohol. Sometimes does marijuana. FAMILY HISTORY: Hypertension. HOME MEDICATIONS: 1. Topamax 50 mg p.o. b.i.d. 2. Imitrex 100 mg p.o. daily p.r.n. 3. Zofran 8 mg t.i.d. p.r.n. 4. Omeprazole 20 mg p.o. daily. 5. Morphine sulfate immediate release 50 mg p.o. b.i.d. p.r.n. 6. MS Contin 30 mg p.o. q.8. 7. Singulair 10 mg q.h.s. 8. Claritin 10 mg p.o. daily. 9. Creon 24,000, three capsules p.o. a.c. t.i.d. 10.Fosamax 70 mg p.o. on Tuesday. 11.Humira 40 mg subcu 14 days. ALLERGY: To REGLAN. PHYSICAL EXAMINATION: Vital signs on presentation: Temperature 98, pulse 49, respiration 20, blood pressure 105/64, pulse 99 percent on room air. GENERAL APPEARANCE: Thin built, BMI 17.8, lying in bed. EYES: Pupils equal. Conjunctivae pale. HEENT: External appearance of nose and ears normal. Oral cavity dry. NECK: JVD not raised. Mass not palpable. RESPIRATORY: Effort normal. Lungs fair entry. CARDIOVASCULAR: First and second sounds normal. No edema. ABDOMEN: Soft. Some tenderness. No guarding or rigidity. Liver and spleen not palpable. LYMPHATIC: No lymph node palpable in neck or axillae. PSYCHIATRY: Alert and oriented x3. Mood and affect slightly anxious-appearing. NEUROLOGICAL: Pupils equal. Cranial nerves grossly intact. Power and sensation grossly intact. MUSCULOSKELETAL: Some wasting of the muscles. INVESTIGATIONS: White count 12.6, hemoglobin 16.1, potassium 4.5, BUN and creatinine are normal. UA negative for nitrite, leukocyte esterase. CT scan of the abdomen and pelvis shows bilateral ovarian varicose veins, small bilateral renal cortical cysts, somewhat limited exam. The patient's lipase is 112. ASSESSMENT: 1. Acute on chronic abdominal pain with a prior history of Crohn disease with no obvious evidence of Crohn disease from the last colonoscopy. The patient has shown evidence of nonspecific colitis. 2. Chronic rheumatoid arthritis. The patient is on Humira. 3. Chronic pancreatitis. The patient to be continued enzyme supplementation. 4. Moderate protein-calorie malnutrition from decreased oral intake. 5. Chronic esophagitis. 6. Acute gastroenteritis, possible. PLAN: The patient was started on clear liquids. Home medications are resumed. Dr. Rosales from GI has been consulted. Care was discussed with the patient. The patient wants IV Dilaudid, which is being given for uncontrolled pain and throwing up. Will give Lovenox for DVT prophylaxis. MMODL / IJN: [id number] /
[2018-02-27] MEDS: LACTATED RINGERS 1,000 ML IV SCH (20:46)
[2018-02-27] MEDS: ENOXAPARIN 40 MG/0.4 ML SYRINGE SQ SCH (20:46)
[2018-02-27] MEDS: MONTELUKAST 10 MG TAB PO SCH (23:10)
[2018-02-28] MEDS: MORPHINE SULFATE ER 30 MG TABLET PO SCH ×4 (00:24→23:40)
[2018-02-28] MEDS: ONDANSETRON 4 MG/2 ML VIAL IVP PRN ×4 (01:54→21:27)
[2018-02-28] MEDS: LACTATED RINGERS 1,000 ML IV SCH ×3 (03:08→22:20)
[2018-02-28] MEDS: HYDROmorphone 1 MG/ML 1 ML SYRINGE IVP PRN ×4 (04:15→21:26)
[2018-02-28] MEDS: PANTOPRAZOLE 40 MG TABLET PO SCH (06:56)
[2018-02-28] MEDS: LIPASE 5,000/PROTEASE 17,000/AMYLASE 24,000 PO SCH ×3 (06:57→16:12)
[2018-02-28 07:51] LABS: Basophils % (A) 0 %; Eosinophils % (A) 1 %; Lymphocytes # (A) 2.5 k/uL (1.0-4.8); Lymphocytes % (A) 36 %; MCH 30.7 pg (25.0-35.0); MCHC 31.1 g/dL (31.0-37.0); MCV 98.8 fL (80.0-100.0); Mean Platelet Volume 6.4; Monocytes # (A) 0.4 k/uL (0-1.0); Monocytes % (A) 5 %; Neutrophils # (A) 3.9 k/uL (1.3-7.7); Neutrophils % (A) 56 %; Platelet Count 191 k/uL (150-450); RBC 4.26 m/uL (3.80-5.40); RDW 13.7 % (11.5-15.5)
[2018-02-28 07:56] LABS: HGB 13.1 gm/dL (11.4-16.0)
[2018-02-28] MEDS: LORATADINE 10 MG TAB PO SCH (08:01)
[2018-02-28] MEDS: TOPIRAMATE 25 MG TAB PO SCH ×2 (08:01→20:57)
[2018-02-28 08:33] LABS: Anion Gap 9 mmol/L; Blood Urea Nitrogen 16 mg/dL (7-17); C Reactive Protein <5.0 mg/L (<10.0); Calcium 9.3 mg/dL (8.4-10.2); Carbon Dioxide 20 mmol/L (22-30); Chloride 108 mmol/L (98-107); Glucose 59 mg/dL (74-99); Potassium 4.5 mmol/L (3.5-5.1); Sodium 137 mmol/L (137-145)
[2018-02-28 10:34] LABS: Erythrocyte Sedimentation Rate 2 mm/hr (0-20)
[2018-02-28] MEDS: ENOXAPARIN 40 MG/0.4 ML SYRINGE SQ SCH (20:50)
[2018-02-28] MEDS: MONTELUKAST 10 MG TAB PO SCH (20:56)
--- NOTE | 2018-02-28 21:59 | PN ---
PROGRESS NOTE DATE OF SERVICE: 02/28/2018 PRESENTING COMPLAINT: Abdominal pain. INTERVAL HISTORY: Patient was admitted with nausea, vomiting, diarrhea, which now have settled down. Acute on chronic abdominal pain flareup, possible element of chronic pancreatitis. Tolerating a liquid diet today. Lying in bed. Has been out of bed. Nausea is getting better. REVIEW OF SYSTEMS: Done for constitutional, cardiovascular, GI, pulmonary; relevant findings as above. CURRENT MEDICATIONS: Current medications include IV Dilaudid and her home pain medications, enzyme supplementation. PHYSICAL EXAMINATION: Temperature 98.3, pulse 64, respiration 18, blood pressure 186/76, pulse ox 98% on 2 L. GENERAL APPEARANCE: Lying in bed. More restful. EYES: Pupils equal. Conjunctivae normal, pale. HEENT: External appearance of nose and ears normal. Oral cavity normal. NECK: JVD not raised. Mass not palpable. RESPIRATORY: Effort normal. Lungs are clear. CARDIOVASCULAR: First and second sounds normal. No edema. ABDOMEN: Soft. Minimal tenderness. No guarding or rigidity. Liver and spleen not palpable. PSYCHIATRY: Alert and oriented x3. Mood and affect less anxious-appearing. INVESTIGATIONS: White count 4.9, hemoglobin 11.7, potassium 4.2. ASSESSMENT: 1. Acute on chronic abdominal pain with a prior history of Crohn's disease with no obvious evidence of Crohn's disease from last colonoscopy. The patient did show evidence of nonspecific colitis. 2. Chronic rheumatoid arthritis. The patient is on Humira. 3. Possible acute on chronic pancreatitis flareup. The patient is on enzyme supplementation. 4. Moderate protein-calorie malnutrition from decreased oral intake. 5. Chronic esophagitis. 6. Acute gastroenteritis, present on admission, now improved. PLAN: Care was discussed with the patient. Continue with liquid diet. Diet to be advanced as tolerated. Care was discussed with the patient. Hopefully patient can be discharged tomorrow. MMODL / IJN: [id number] /
--- NOTE | 2018-02-28 23:42 | P.PN ---
Subjective Progress Note Date: 02/28/18 Principal diagnosis: Abdominal pain, diarrhea, nausea and vomiting Patient still reporting some nausea and abdominal pain, however improved since presentation. She has tolerated some liquids. She reports 2 loose bowel movements today however overall diarrhea is improved. Objective - Vital Signs Vital signs: Vital Signs Temp 98.6 F 02/28/18 14:45 Pulse 53 L 02/28/18 14:45 Resp 12 02/28/18 14:45 BP 119/76 02/28/18 14:45 Pulse Ox 99 02/28/18 14:45 Intake & Output 02/28/18 02/28/18 03/01/18 06:59 18:59 06:59 Intake Total 340 Balance 340 Intake: Oral 340 Other: # Voids 1 1 - Exam On physical examination, patient appears comfortable in no apparent distress. HEAD: Normocephalic, atraumatic. EYES: No scleral icterus. No conjunctival injection. MOUTH: No lesions, tongue midline. NECK: Trachea midline, no gross abnormalities. CHEST: Clear to auscultation with no wheezing or rhonchi appreciated. HEART: Regular rate and rhythm. ABDOMEN: Soft, obese. Bowel sounds are positive. No organomegaly. No guarding or rigidity. EXTREMITIES: No pedal edema. SKIN: No rashes, no jaundice. NEUROLOGIC: Alert and oriented x3. No focal deficits. - Labs CBC & Chem 7: 02/28/18 07:29 02/28/18 07:29 Labs: Abnormal Lab Results - Last 24 Hours (Table) 02/28/18 Range/Units 07:29 Chloride 108 H (98-107) mmol/L Carbon Dioxide 20 L (22-30) mmol/L Glucose 59 L (74-99) mg/dL Assessment and Plan (1) Intractable abdominal pain Narrative/Plan: Unclear if this is related to patient's history of chronic pancreatitis, inflammatory bowel disease or functional pain. Symptoms are very broad. No findings on CT to suggest any acute gastrointestinal pathology such as obstruction, ileus or inflammation. CRP normal. Current Visit: Yes Status: Acute Code(s): R10.9 - UNSPECIFIED ABDOMINAL PAIN SNOMED Code(s): 86457869 (2) Diarrhea Narrative/Plan: No signs on computed tomography scan of inflammation associated with Crohn's disease. We'll rule out infection. Current Visit: Yes Status: Acute Code(s): R19.7 - DIARRHEA, UNSPECIFIED SNOMED Code(s): 28976367 (3) Chronic pancreatitis Narrative/Plan: Patient on enzyme replacement therapy at home. Chronic pancreatitis is believed to be secondary to a medication effect. Current Visit: No Status: Acute Code(s): K86.1 - OTHER CHRONIC PANCREATITIS SNOMED Code(s): 734708134 (4) Crohns disease Narrative/Plan: Long-standing history of uncomplicated disease not requiring surgeries in the past and the patient is currently on biologic therapy with Humira. She has required multiple cycles of steroids in the past. Last colonoscopy in 2017 did not show active disease. Current Visit: No Status: Chronic Code(s): K50.90 - CROHN'S DISEASE, UNSPECIFIED, WITHOUT COMPLICATIONS SNOMED Code(s): 49084053 Plan: Supportive care Diet as tolerated Inflammatory markers, ESR and CRP, ordered area with CRP noted to be normal. Stool Studies ordered, but still pending with patient unable to provide a sample today Agree with holding off on steroid therapy at this time. The patient reports being off of Humira for one month due to insurance reasons. She has subsequently been able to take 2 doses with her last dose within the last week. Patient to continue enzyme supplementation for chronic pancreatitis with meals Thank you for allowing us to participate in the care of this patient, we will continue to follow.
[2018-03-01] MEDS: LACTATED RINGERS 1,000 ML IV SCH ×3 (04:43→10:37)
[2018-03-01] MEDS: HYDROmorphone 1 MG/ML 1 ML SYRINGE IVP PRN ×2 (05:27→10:34)
[2018-03-01] MEDS ORDERED: FOSAMAX 70MG PO SCH (06:30)
[2018-03-01] MEDS: MORPHINE SULFATE ER 30 MG TABLET PO SCH ×2 (06:31→14:58)
[2018-03-01] MEDS: PANTOPRAZOLE 40 MG TABLET PO SCH (06:31)
[2018-03-01] MEDS: LIPASE 5,000/PROTEASE 17,000/AMYLASE 24,000 PO SCH ×2 (06:41→13:47)
[2018-03-01 07:59] LABS: Glucose,Whole Blood 109 mg/dL (75-99)
[2018-03-01 08:19] LABS: Anion Gap 9 mmol/L; Blood Urea Nitrogen 10 mg/dL (7-17); Calcium 8.7 mg/dL (8.4-10.2); Carbon Dioxide 22 mmol/L (22-30); Chloride 110 mmol/L (98-107); Glucose 118 mg/dL (74-99); Potassium 3.6 mmol/L (3.5-5.1); Sodium 141 mmol/L (137-145)
[2018-03-01] MEDS: TOPIRAMATE 25 MG TAB PO SCH (08:53)
[2018-03-01] MEDS: LORATADINE 10 MG TAB PO SCH (08:53)
[2018-03-01] MEDS: ONDANSETRON 4 MG/2 ML VIAL IVP PRN ×2 (10:34→16:06)
--- NOTE | 2018-03-01 12:00 | P.PN ---
Subjective Progress Note Date: 03/01/18 Principal diagnosis: abdominal pain nausea vomiting diarrhea abdominal pain nausea vomiting diarrhea improves. Tolerating diet. Afebrile. Objective - Vital Signs Vital signs: Vital Signs Temp 98.6 F 03/01/18 08:39 Pulse 59 L 03/01/18 08:39 Resp 16 03/01/18 08:39 BP 104/68 03/01/18 08:39 Pulse Ox 98 03/01/18 08:39 Intake & Output 02/28/18 03/01/18 03/01/18 18:59 06:59 18:59 Intake Total 340 Balance 340 Intake: Oral 340 Other: # Voids 1 1 - Exam General appearance: The patient is alert, oriented, in no acute distress. HET: Head is normocephalic and atraumatic. Pupils are equal and reactive. Oropharynx is clear without lesions. Neck: Supple without lymphadenopathy. Trachea midline. Heart: S1 S2. Regular rate and rhythm. Lungs: No crackles or wheezes are heard. Abdomen: Soft, nontender, nondistended with bowel sounds. No peritoneal signs. No palpable organomegaly or masses. Extremities: Normal skin color and turgor. No cyanosis, rash, ulceration, clubbing, or edema. Radial and pedal pulses are 2/4 bilaterally. Neurological: No focal deficits. Strength and sensation are grossly intact. - Labs CBC & Chem 7: 02/28/18 07:29 03/01/18 07:05 Labs: Abnormal Lab Results - Last 24 Hours (Table) 03/01/18 03/01/18 Range/Units 07:05 07:57 Chloride 110 H (98-107) mmol/L Glucose 118 H (74-99) mg/dL POC Glucose (mg/dL) 109 H (75-99) mg/dL Assessment and Plan (1) Intractable abdominal pain Narrative/Plan: unclear if this is related to patient's history of chronic pancreatitis, inflammatory bowel disease or functional pain. CRP normal. Current Visit: Yes Status: Acute Code(s): R10.9 - UNSPECIFIED ABDOMINAL PAIN SNOMED Code(s): 50177266 (2) Diarrhea Narrative/Plan: improved. CT reported no evidence of active Crohn's disease. Current Visit: Yes Status: Acute Code(s): R19.7 - DIARRHEA, UNSPECIFIED SNOMED Code(s): 64740384 (3) Chronic pancreatitis Narrative/Plan: patient on enzyme replacement at home. Current Visit: No Status: Acute Code(s): K86.1 - OTHER CHRONIC PANCREATITIS SNOMED Code(s): 667063194 (4) Crohns disease Narrative/Plan: long-standing history of uncomplicated disease not requiring surgery presently on biologic therapy with Humira. Last colonoscopy 2016 did not show active disease. Current Visit: No Status: Chronic Code(s): K50.90 - CROHN'S DISEASE, UNSPECIFIED, WITHOUT COMPLICATIONS SNOMED Code(s): 66952151 Plan: 1. Symptomatic supportive measures. No further workup from a GI standpoint. She is scheduled to follow up in GI office March [address] Nagy. Diet as tolerated. We'll follow as needed. Assessment and plan a care discussed with Dr. Rosales
[2018-03-01 14:30] VITALS: BP 109/68; PULSE 66; TEMP 98.3
[2018-03-01 17:08] VITALS: RESP 18
--- NOTE | 2018-03-02 08:20 | DS ---
DISCHARGE SUMMARY DATE OF ADMISSION: 02/28/2018 DATE OF DISCHARGE: 03/01/2018 FINAL DIAGNOSES: 1. Acute on chronic abdominal pain, possibly acute flareup of acute on chronic pancreatitis. 2. Chronic rheumatoid arthritis. 3. Moderate protein-calorie malnutrition from decreased oral intake. 4. Chronic esophagitis. 5. Acute gastroenteritis, present on admission. 6. History of possible Crohn disease. HOSPITAL COURSE: This patient has got chronic abdominal pain and rheumatoid arthritis. Did have a colonoscopy, was found to have nonspecific colitis. Also has history [place] of [place]. Yet again presented with nausea, vomiting, diarrhea, treated conservatively. Did improve by the time of discharge. Tolerating a liquid diet. Up and about. Seen by Dr. Rosales from GI. The patient did have a CT scan of the abdomen and pelvis that showed some ovarian cysts. PHYSICAL EXAMINATION: On examination, afebrile, blood pressure 109/68, pulse 66. ABDOMEN: Soft, nontender. DISCHARGE MEDICATIONS: 1. Fosamax 70 mg on Tuesday. 2. Imitrex 100 mg daily p.r.n. 3. Omeprazole 20 mg p.o. daily. 4. Zofran 8 mg p.o. t.i.d. p.r.n. 5. Creon 24,000, three capsules p.o. a.c. t.i.d. 6. Claritin 10 mg a day. 7. Singulair 10 mg at bedtime. 8. MS Contin 30 mg q.8. 9. Morphine sulfate immediate release 15 mg p.o. b.i.d. p.r.n. 10.Humira 40 mg subcu every 14 days. 11.Topamax 50 mg p.o. b.i.d. Follow up with Dr. Kohli on 03/07/2018 for lymphadenopathy, felt to be most likely reactive; Dr. Nagy on 03/16/2018; Dr. Dobbins on 03/03/2018. DIET: Soft, bland, low-fat. MMODL / IJN: [id number] /
== END 2018-03-01 16:35 | disposition home or self-care (01) | DRG 439 ==
LOC: EC 20:29 → 6PED 23:58 → OBSVTOIN 02-28 16:25
PROVIDERS: ADMIT Hospitalist; ATTEND Hospitalist
DX: K85.90 Acute pancreatitis without necrosis or infection, unspecified (principal); E44.0 Moderate protein-calorie malnutrition; K86.1 Other chronic pancreatitis; G62.9 Polyneuropathy, unspecified; G89.4 Chronic pain syndrome; I86.2 Pelvic varices; K21.0 Gastro-esophageal reflux disease with esophagitis; K57.90 Diverticulosis of intestine, part unspecified, without perforation or abscess without bleeding; M06.9 Rheumatoid arthritis, unspecified; M19.90 Unspecified osteoarthritis, unspecified site; N83.202 Unspecified ovarian cyst, left side; Z79.83 Long term (current) use of bisphosphonates; Z82.49 Family history of ischemic heart disease and other diseases of the circulatory system; Z87.440 Personal history of urinary (tract) infections; Z79.51 Long term (current) use of inhaled steroids; Z79.899 Other long term (current) drug therapy; Z88.8 Allergy status to other drugs, medicaments and biological substances; H26.9 Unspecified cataract; K52.9 Noninfective gastroenteritis and colitis, unspecified
CPT/HCPCS: 36415; 74177; 80048; 80053; 81001; 81025; 83605; 83690; 85025; 85652; 86140; 96361; 96374; 96375; 99285

== ENCOUNTER 2018-03-27 00:34 | Observation (INO) | payer OTHER ==
[2018-03-27] MEDS ORDERED: HYDROmorphone 1 MG/ML 1 ML SYRINGE IVP STA ×3 (01:29→04:17)
[2018-03-27] MEDS ORDERED: SODIUM CHLORIDE 0.9% 1,000 ML IV STA (01:29)
[2018-03-27] MEDS ORDERED: ONDANSETRON 4 MG/2 ML VIAL IVP STA ×2 (01:29→04:16)
--- NOTE | 2018-03-27 01:48 | ED ---
Nausea/Vomiting/Diarrhea HPI - General Chief complaint: Nausea/Vomiting/Diarrhea Stated complaint: NVD Time Seen by Provider: 03/27/18 01:16 Source: patient, RN notes reviewed Mode of arrival: wheelchair Limitations: no limitations - History of Present Illness Initial comments: This is a 42-year-old female with history of pancreatitis and Crohn's disease who presents to the emergency department with chief complaint of abdominal pain , vomiting and diarrhea. Patient states that she has had intermittent vomiting and diarrhea for the past 2 weeks. She states that today the pain has worsened and she has been unable to keep down any food or drink. Patient is unsure if she is having a flare of pancreatitis or of her Crohn's. She reports a dull aching pain that extends from her epigastrium down to the left lower quadrant. Patient states that she is on Humira for her Crohn's disease. 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 She denies any fevers, chest pain or shortness of breath, hematuria or dysuria. - Related Data Home Medications Medication Instructions Recorded Confirmed Alendronate Sodium [Fosamax] 70 mg PO WE 06/07/16 02/27/18 SUMAtriptan SUCCINATE [Imitrex] 100 mg PO DAILY PRN 06/07/16 02/27/18 Omeprazole 20 mg PO DAILY 08/05/16 02/27/18 Ondansetron [Zofran ODT] 8 mg PO TID PRN 08/18/16 02/27/18 Lipase/Protease/Amylase [Thor Ambrocio 3 cap PO AC-TID 09/14/16 02/27/18 24,000 Units Capsule] Loratadine 10 mg PO DAILY 09/14/16 02/27/18 Montelukast Sodium [Singulair] 10 mg PO HS 09/14/16 02/27/18 Morphine Sulfate ER [Ms Contin] 30 mg PO Q8H 09/14/16 02/27/18 Morphine Sulfate Ir [MSIR] 15 mg PO BID PRN 09/14/16 02/27/18 Adalimumab [Humira Pen] 40 mg SQ [id number] 12/25/16 02/27/18 Topiramate [Topamax] 50 mg PO BID 02/02/17 02/27/18 Allergies Allergy/AdvReac Type Severity Reaction Status Date / Time metoclopramide [From Reglan] AdvReac Twitching Verified 03/27/18 00:43 Review of Systems ROS Statement: Those systems with pertinent positive or pertinent negative responses have been documented in the HPI. ROS Other: All systems not noted in ROS Statement are negative. Past Medical History Past Medical History: Eye Disorder, GERD/Reflux, GI Bleed, Neurologic Disorder, Osteoarthritis (OA), Rheumatoid Arthritis (RA) Additional Past Medical History / Comment(s): Chronic pancreatitis, Crohn's disease, blood in stool, diverticulosis, hx ulcers, frequent UTI'S, hx blood clots in arm, hx anemia, hx kidney failure from dehydration 12 yrs ago, neuropathy, cataracts. History of Any Multi-Drug Resistant Organisms: None Reported Past Surgical History: Cholecystectomy Additional Past Surgical History / Comment(s): colonsocopy, EGD Past Anesthesia/Blood Transfusion Reactions: No Reported Reaction Additional Past Anesthesia/Blood Transfusion Reaction / Comment(s): Has had about 20 blood transfusions. Past Psychological History: No Psychological Hx Reported Smoking Status: Never smoker Past Alcohol Use History: None Reported Past Drug Use History: Marijuana - Past Family History Father Family Medical History: Myocardial Infarction ([place]) Additional Family Medical History / Comment(s): biological father had hx of drug abuse Mother Family Medical History: Hypertension General Exam - General Exam Comments Initial Comments: General: Awake and alert, well-developed; patient is lying in the position and is in mild distress due to pain and nausea. Patient appears chronically ill and older than stated age. HEENT: Head atraumatic, normocephalic. Pupils are equal, round and reactive to light. Extraocular movements intact. Oropharynx moist without erythema or exudate. Neck: Supple. Normal ROM. Cardiovascular: Regular rate and rhythm. No murmurs, rubs or gallops. Chest symmetrical. Respiratory: Lungs clear to auscultation bilaterally. No wheezes, rales or rhonchi. Normal respiratory effort with no use of accessory muscles. Abdomen: Soft, thin, non-distended. Generalized tenderness on palpation of the epigastrium, left upper quadrant and left lower quadrant with guarding. No rebound or rigidity. Normal bowel sounds in all 4 quadrants. Musculoskeletal: Normal ROM, no tenderness bilateral upper and lower extremities. Skin: [place], warm and dry without rashes or lesions. Neurological: Alert and oriented x3. CN II-XII grossly intact. Speech is fluent and answers are appropriate. No focal neuro deficits. Limitations: no limitations Course Vital Signs 03/27/18 00:40 Temperature 97.9 F Pulse Rate 52 L Respiratory 19 Rate Blood Pressure 111/72 O2 Sat by Pulse 98 Oximetry Medical Decision Making - Medical Decision Making This is a 42-year-old female with history of pancreatitis and Crohn's disease who presents to the emergency department with chief complaint of abdominal pain , vomiting and diarrhea. Patient sees Dr. Nagy and is on Humira. She reports worsening of vomiting, diarrhea and abdominal pain over the past 2 days. Lipase is within normal range at 125. I am suspicious for an acute Crohn's flare. Patient has a white count elevated at 15.8. CMP and coags reveal no significant abnormalities. Discussed obtaining a computed tomography scan of the abdomen and pelvis with patient who declines at this time. She states that her symptoms are no different then the symptoms she normally has with Crohn's. With patient's symptoms controlled, we discussed starting patient on a course of steroids and having her follow-up with Dr. Nagy outpatient. Patient stated that she has been unable to keep down any food or liquids and wanted to be admitted. This was discussed with attending physician, Dr. Villarreal who also evaluated the patient at that time. We discussed pain and nausea control and then a PO challenge. Pain and vomiting were controlled and patient was given PO challenge with water. Patient was unable to keep down water and began vomiting bile again. Patient will be admitted to observation for intractable vomiting and abdominal pain to Dr. Healy with consult to Dr. Nagy. Her vitals have been stable and she is in no acute distress. - Lab Data Result diagrams: 03/27/18 01:45 03/27/18 01:45 Lab Results 03/27/18 03/27/18 03/27/18 Range/Units 01:45 01:45 01:45 WBC 15.4 H (3.8-10.6) k/uL RBC 5.15 (3.80-5.40) m/uL Hgb 15.8 (11.4-16.0) gm/dL Hct 48.8 H (34.0-46.0) % MCV 94.8 (80.0-100.0) fL MCH 30.7 (25.0-35.0) pg MCHC 32.4 (31.0-37.0) g/dL RDW 13.4 (11.5-15.5) % Plt Count 271 (150-450) k/uL Neutrophils % 83 % Lymphocytes % 11 % Monocytes % 6 % Eosinophils % 0 % Basophils % 0 % Neutrophils # 12.8 H (1.3-7.7) k/uL Lymphocytes # 1.6 (1.0-4.8) k/uL Monocytes # 0.9 (0-1.0) k/uL Eosinophils # 0.0 (0-0.7) k/uL Basophils # 0.0 (0-0.2) k/uL PT 10.7 (9.0-12.0) sec INR 1.1 (<1.2) APTT 23.8 (22.0-30.0) sec Sodium 140 (137-145) mmol/L Potassium 4.1 (3.5-5.1) mmol/L Chloride 105 (98-107) mmol/L Carbon Dioxide 22 (22-30) mmol/L Anion Gap 13 mmol/L BUN 13 (7-17) mg/dL Creatinine 0.70 (0.52-1.04) mg/dL Est GFR (CKD-EPI)AfAm >90 (>60 ml/min/1.73 sqM) Est GFR (CKD-EPI)NonAf >90 (>60 ml/min/1.73 sqM) Glucose 105 H (74-99) mg/dL Calcium 10.9 H (8.4-10.2) mg/dL Total Bilirubin 0.9 (0.2-1.3) mg/dL AST 18 (14-36) U/L ALT 19 (9-52) U/L Alkaline Phosphatase 72 (38-126) U/L Total Protein 7.9 (6.3-8.2) g/dL Albumin 5.0 (3.5-5.0) g/dL Amylase 70 (30-110) U/L Lipase 125 (23-300) U/L Disposition Clinical Impression: Intractable abdominal pain, Intractable nausea and vomiting, Crohns disease Disposition: ADMITTED IP TO THIS [facility] Condition: Fair Is patient prescribed a controlled substance at d/c from ED?: No Referrals: Derek Dobbins MD [Primary Care Provider] - 1-2 days Time of Disposition: 04:27
[2018-03-27 02:04] LABS: INR 1.1 (<1.2); Partial Thromboplastin Time 23.8 sec (22.0-30.0); Prothrombin Time 10.7 sec (9.0-12.0)
[2018-03-27 02:08] LABS: ALT 19 U/L (9-52); AST 18 U/L (14-36); Alkaline Phosphatase 72 U/L (38-126); Amylase 70 U/L (30-110); Anion Gap 13 mmol/L; Blood Urea Nitrogen 13 mg/dL (7-17); Calcium 10.9 mg/dL (8.4-10.2); Carbon Dioxide 22 mmol/L (22-30); Chloride 105 mmol/L (98-107); Glucose 105 mg/dL (74-99); Lipase 125 U/L (23-300); Potassium 4.1 mmol/L (3.5-5.1); Sodium 140 mmol/L (137-145); Total Bilirubin 0.9 mg/dL (0.2-1.3); Total Protein 7.9 g/dL (6.3-8.2)
[2018-03-27 02:18] LABS: Basophils % (A) 0 %; Eosinophils % (A) 0 %; HCT 48.8 % (34.0-46.0); HGB 15.8 gm/dL (11.4-16.0); Lymphocytes # (A) 1.6 k/uL (1.0-4.8); Lymphocytes % (A) 11 %; MCH 30.7 pg (25.0-35.0); MCHC 32.4 g/dL (31.0-37.0); MCV 94.8 fL (80.0-100.0); Monocytes # (A) 0.9 k/uL (0-1.0); Monocytes % (A) 6 %; Neutrophils # (A) 12.8 k/uL (1.3-7.7); Neutrophils % (A) 83 %; Platelet Count 271 k/uL (150-450); RBC 5.15 m/uL (3.80-5.40); RDW 13.4 % (11.5-15.5); WBC 15.4 k/uL (3.8-10.6)
[2018-03-27] MEDS ORDERED: TRIMETHOBENZAMIDE 100 MG/ML 2 ML VIAL IM STA (03:16)
[2018-03-27] MEDS ORDERED: ACETAMINOPHEN TAB 325 MG TAB PO PRN (04:17)
[2018-03-27] MEDS ORDERED: PROMETHAZINE 25 MG TAB PO PRN (04:17)
[2018-03-27] MEDS ORDERED: HYDROcodone/APAP 5-325MG 1 EACH TAB PO PRN (04:17)
[2018-03-27] MEDS ORDERED: NALOXONE 0.4 MG/ML 1 ML VIAL IV PRN (04:17)
[2018-03-27] MEDS: SODIUM CHLORIDE 0.9% 1,000 ML IV SCH ×3 (04:23→23:51)
[2018-03-27] MEDS: HYDROmorphone 1 MG/ML 1 ML SYRINGE IVP PRN ×6 (07:18→23:50)
[2018-03-27] MEDS: ONDANSETRON 4 MG/2 ML VIAL IVP PRN ×2 (10:17→17:17)
[2018-03-27 11:44] VITALS: BMI 17.6
[2018-03-27 15:29] LABS: Appearance,Urine Cloudy (Clear); Bilirubin,Urine Negative (Negative); Blood,Urine Small (Negative); Color,Urine Yellow; Glucose,Urine (UA) Negative (Negative); Ketones,Urine 3+ (Negative); Leukocyte Esterase,Urine Negative (Negative); Mucus,Urine Few /hpf; Nitrite,Urine Negative (Negative); Protein,Urine Trace (Negative); RBC,Urine 15 /hpf (0-5); Squamous Epithelial Cell,Urine 5 /hpf (0-4); Urobilinogen,Urine <2.0 mg/dL (<2.0); WBC,Urine 1 /hpf (0-5)
[2018-03-27] MEDS: Lipase/Protease/Amylase [Creon Dr 24,000 Units Capsule] PO SCH ×2 (15:34→20:26)
[2018-03-27] MEDS ORDERED: SUMAtriptan SUCCINATE 50 MG TAB PO PRN (16:00)
--- NOTE | 2018-03-27 18:05 | HP ---
HISTORY AND PHYSICAL DATE OF ADMISSION: 03/27/2018 DATE OF SERVICE: 03/27/2018. PRESENTING COMPLAINT: Abdominal pain, nausea and vomiting. HISTORY OF PRESENTING COMPLAINT: This is a pleasant 42-year-old patient who follows with Dr. Nagy from Gastroenterology and whose family doctor is Dr. Dobbins. Chronic stable medical conditions include osteoarthritis and rheumatoid arthritis, chronic pancreatitis, diverticulosis, peripheral neuropathy. The patient does take chronic pain medications. Also on Humira. The patient did have a colonoscopy by Dr. Nagy over a year ago that was found to have nonspecific colitis and also esophagitis. The patient also had a working diagnosis of Crohn's disease. The exact diagnosis is unclear right now. The patient has had multiple admissions with flare of abdominal pain, nausea, vomiting, yet again patient presents with a 2-day history of increasing nausea, vomiting, increasing abdominal pain, admitted for the same. There were no fever and chills. No diarrhea. Patient is put on IV Dilaudid. Gastroenterology was consulted. The patient is feeling weak, tired, run down and lying in bed. REVIEW OF SYSTEMS: CONSTITUTIONAL: Weak and tired. No fever. HEENT: None. RESPIRATORY: None. CARDIOVASCULAR: None. GASTROINTESTINAL: As above. : None. MUSCULOSKELETAL: Pain in different joints. DERMATOLOGICAL, HEMATOLOGIC, LYMPHATIC: None. PSYCHIATRY: Anxious. NEUROLOGICAL: Numbness and tingling in the hands and feet. PAST MEDICAL HISTORY: Questionable Crohn's disease, chronic colitis, type unknown; rheumatoid arthritis, chronic pancreatitis, protein calorie malnutrition, chronic pain syndrome. PAST SURGICAL HISTORY: Cholecystectomy. SOCIAL HISTORY: No smoking. No alcohol. Sometimes does marijuana. FAMILY HISTORY: Hypertension. HOME MEDICATIONS: 1. Topamax 50 mg b.i.d. 2. Imitrex 100 mg p.o. daily p.r.n. 3. Zofran 8 mg p.o. t.i.d. p.r.n. 4. Omeprazole 20 mg p.o. daily. 5. Morphine sulfate immediate release 50 mg p.o. b.i.d. p.r.n. 6. MS Contin ER 30 mg p.o. q.8. 7. Singulair 10 mg q.h.s. 8. Claritin 10 mg p.o. daily. 9. Creon 24,000 units 3 capsules p.o. a.c. t.i.d. 10.Fosamax 70 mg p.o. on Tuesday. 11.Humira 40 mg subcu every 14 days. ALLERGIES: REGLAN. PHYSICAL EXAMINATION: VITAL SIGNS: Vital signs on presentation, temperature 97.9, pulse 52, respiratory rate 19, blood pressure 101/72, pulse ox 98% on room air. GENERAL APPEARANCE: Thin built. BMI 17.7. Lying in bed, tired-appearing. EYES: Pupils equal. Conjunctivae normal. HEENT: External appearance of nose and ears normal. Oral cavity dry. NECK: JVD not raised. Mass not palpable. RESPIRATORY: Effort normal. LUNGS: Clear. CARDIOVASCULAR: 1st and 2nd sounds normal. No edema. ABDOMEN: Soft. Some tenderness. No guarding or rigidity. Liver and spleen not palpable. LYMPHATIC: No lymph nodes palpable in the neck and axilla. PSYCHIATRY: Alert and oriented x3. Mood and affect anxious-appearing. NEUROLOGICAL: Pupils equal. Cranial nerves grossly intact. Power and sensation grossly intact. MUSCULOSKELETAL: Muscle wasting is present. INVESTIGATIONS: White count 15.4, hemoglobin 15.8, potassium 4.1, BUN and creatinine is normal. ASSESSMENT: 1. Acute on chronic abdominal pain with a prior history of Crohn's disease with currently no evidence on the last colonoscopy. The patient has evidence of nonspecific colitis. 2. Chronic rheumatoid arthritis on Humira. 3. Chronic pancreatitis on enzyme supplementation. 4. Moderate protein-calorie malnutrition from decreased oral intake. 5. Chronic esophagitis. PLAN: Patient is started on IV fluids, IV pain medications. Gastroenterology was consulted. Care was discussed with the patient. Questions were answered. Copy to Dr. Dobbins. Patient tells me she does have a [place] followup as per Dr. Nagy. MMODL / IJN: [id number] /
[2018-03-27] MEDS: MONTELUKAST 10 MG TAB PO SCH (21:13)
[2018-03-27] MEDS: TOPIRAMATE 25 MG TAB PO SCH (21:13)
--- NOTE | 2018-03-27 21:32 | CONS ---
CONSULTATION REASON FOR CONSULTATION: Epigastric pain, nausea, vomiting. HISTORY OF PRESENT ILLNESS: The patient is a 42-year-old pleasant white female with a history of Crohn disease diagnosed by Dr. Nagy many years ago. She had multiple hospitalizations over the last 1 year with symptomatic epigastric pain associated with nausea, vomiting, and diarrhea and this recent episode started 2 days ago. In fact, she was in the hospital just 2 weeks ago and was treated symptomatically and was discharged home. The patient has been maintained on Humira for Crohn disease and follows with Dr. Nagy on an outpatient basis and in fact she had seen him about 2 weeks ago and he recommended her to be evaluated at [facility] for ongoing symptoms. Last colonoscopy by Dr. Nagy was March of 2017 which was unremarkable. Today she complains of epigastric pain, some nausea, vomiting, and diarrhea with about ten loose bowel movements and no bleeding. No fever, chills, or night sweats. PAST MEDICAL HISTORY: Significant for Crohn's colitis diagnosed several years ago, gastroesophageal reflux disease, rheumatoid arthritis, prior history of chronic pancreatitis, chronic pain syndrome. MEDICATIONS: At home: Topamax, Imitrex, Zofran, , MS Contin, Singulair, Creon, Fosamax, Humira. ALLERGIES: REGLAN. SOCIAL HISTORY: No smoking or alcohol use. FAMILY HISTORY: Mother has hypertension. REVIEW OF SYSTEMS: CARDIOPULMONARY: No chest pain or shortness of breath. GENITOURINARY: No dysuria or hematuria. MUSCULOSKELETAL: Unremarkable. SKIN: Unremarkable. ENDOCRINE: Unremarkable. PSYCHIATRIC: Unremarkable. NEUROLOGY: Unremarkable. ENT/VISION: Unremarkable. CONSTITUTIONAL: No recent weight loss. No fever, chills, night sweats. PAST SURGICAL HISTORY: and colonoscopy in March of 2017. EXAMINATION: She appears comfortable in no apparent distress. Vital signs are stable. Blood pressure is 118/71, pulse 79, temperature 98.5. HEENT examination unremarkable. Conjunctivae pink. Sclerae anicteric. Oral cavity no lesions. Neck: No JVD or lymph node enlargement. Chest was clear to auscultation. HEART: Regular rate and rhythm. Abdomen is soft. Mild tenderness in the epigastric area. Bowel sounds are positive. No organomegaly. EXTREMITIES: No pedal edema. SKIN: No rashes. NEUROLOGIC: Alert and oriented x3. No focal deficits. LABS: Done at the time of admission to the hospital: WBC 15.4, hemoglobin 15.8, platelets are normal. PT/INR is normal. Basic metabolic panel is within normal limits. Amylase and lipase are normal. IMPRESSION: 1. Chronic intermittent epigastric pain and lower abdominal pain associated with nausea, vomiting, on and off for the last 1 year duration. Multiple hospitalizations over the last 1 year. 2. Crohn's colitis diagnosed 7 years ago[address] Nagy. Maintained on Humira every 2 weeks on an outpatient basis. 3. Rheumatoid arthritis. 4. Gastroesophageal reflux disease. RECOMMENDATIONS: 1. Continue with IV Protonix and IV antiemetics as needed. 2. Her symptoms are not suggestive of exacerbation of Crohn disease. 3. Clear liquid diet and advance as tolerated. 4. No need for any endoscopy intervention at the present time. Thank you for this consultation. FIDEL / RADHA: [id number] /
[2018-03-28] MEDS: HYDROmorphone 1 MG/ML 1 ML SYRINGE IVP PRN ×7 (04:11→23:40)
[2018-03-28] MEDS: PANTOPRAZOLE 40 MG TABLET PO SCH (07:08)
[2018-03-28] MEDS: ONDANSETRON 4 MG/2 ML VIAL IVP PRN ×3 (07:11→23:40)
[2018-03-28] MEDS ORDERED: LORATADINE 10 MG TAB PO SCH (09:00)
[2018-03-28] MEDS: Lipase/Protease/Amylase [Creon Dr 24,000 Units Capsule] PO SCH ×3 (10:10→16:51)
[2018-03-28] MEDS: TOPIRAMATE 25 MG TAB PO SCH ×2 (10:11→20:21)
[2018-03-28] MEDS: SODIUM CHLORIDE 0.9% 1,000 ML IV SCH (10:13)
--- NOTE | 2018-03-28 11:59 | P.PN ---
Subjective Progress Note Date: 03/28/18 Principal diagnosis: Epigastric pain nausea vomiting 42-year-old female with a history of Crohn's disease pancreatitis admitted with acute on chronic epigastric pain nausea vomiting. Symptoms are improved today. She is scheduled to receive a second opinion and [facility] within the month. Afebrile. Tolerating clear liquids. No labs to report this morning. Objective - Vital Signs Vital signs: Vital Signs Temp 98.4 F 03/28/18 08:25 Pulse 59 L 03/28/18 08:25 Resp 16 03/28/18 08:25 BP 92/54 03/28/18 08:25 Pulse Ox 95 03/28/18 08:25 Intake & Output 03/27/18 03/28/18 03/28/18 18:59 06:59 18:59 Output Total 150 Balance -150 Weight 45.359 kg Output: Emesis 150 Other: Voiding Method Toilet Toilet # Voids 1 1 - Exam General appearance: The patient is alert, oriented, in no acute distress. HET: Head is normocephalic and atraumatic. Pupils are equal and reactive. Oropharynx is clear without lesions. Neck: Supple without lymphadenopathy. Trachea midline. Heart: S1 S2. Regular rate and rhythm. Lungs: No crackles or wheezes are heard. Abdomen: Soft, diffuse mild tenderness across mid abdomen, nondistended with bowel sounds. No peritoneal signs. No palpable organomegaly or masses. Extremities: Normal skin color and turgor. No cyanosis, rash, ulceration, clubbing, or edema. Radial and pedal pulses are 2/4 bilaterally. Neurological: No focal deficits. Strength and sensation are grossly intact. - Labs CBC & Chem 7: 03/27/18 01:45 03/27/18 01:45 Labs: Abnormal Lab Results - Last 24 Hours (Table) 03/27/18 Range/Units 15:00 Urine Appearance Cloudy H (Clear) Urine Protein Trace H (Negative) Urine Ketones 3+ H (Negative) Urine Blood Small H (Negative) Urine RBC 15 H (0-5) /hpf Ur Squamous Epith Cells 5 H (0-4) /hpf Urine Mucus Few H (None) /hpf Assessment and Plan (1) Chronic abdominal pain Narrative/Plan: Chronic intermittent epigastric pain associated with nausea vomiting on and off for the last 1 year duration with multiple hospitalizations. History of Crohn's ileitis diagnosed several years ago as well as rheumatoid arthritis maintained on Humira every 2 weeks and outpatient basis. Symptoms are not suggestive of exacerbation of Crohn's disease. Patient is seeking a second opinion for these symptoms at [facility] within the next month. Current Visit: No Status: Acute Code(s): R10.9 - UNSPECIFIED ABDOMINAL PAIN ; G89.29 - OTHER CHRONIC PAIN SNOMED Code(s): 027712851 Plan: 1. Advance diet as tolerated. Endoscopic exams not planned at this time. She is scheduled to follow with Dr. Nagy in 4-6 weeks. Assessment and plan a care discussed with Dr. Bonilla
[2018-03-28] MEDS ORDERED: Lipase/Protease/Amylase [Creon Dr 24,000 Units Capsule] PO SCH (15:24)
[2018-03-28] MEDS: MONTELUKAST 10 MG TAB PO SCH (20:21)
--- NOTE | 2018-03-28 22:36 | PN ---
PROGRESS NOTE DATE OF SERVICE: 03/28/2018. PRESENTING COMPLAINT: Abdominal pain. INTERVAL HISTORY: This patient with rather complicated GI history, presented with acute abdominal pain flare up. Abdominal pain is better, is tolerating some liquid diet. More cheerful today. Has been out of bed. Seen by Gastroenterology. REVIEW OF SYSTEMS: Done for constitutional, cardiovascular, GI, pulmonary and relevant findings as above. CURRENT MEDICATIONS: Reviewed that include IV Dilaudid. PHYSICAL EXAMINATION: Temperature 98.5, pulse 57, respiration 12, blood pressure 97/51, pulse ox 99% on room air. GENERAL APPEARANCE: Sitting up, more cheerful. Awake. EYES: Pupils equal. Conjunctivae normal. HEENT external appearance of nose and ears normal. Oral cavity normal. NECK: JVD not raised. Mass not palpable. RESPIRATORY: Effort. LUNGS: Clear. CARDIOVASCULAR: 1st and 2nd sounds normal. No edema. ABDOMEN: Soft. Tenderness. No guarding or rigidity. PSYCHIATRY: Alert and oriented x3. Mood and affect normal. INVESTIGATIONS: No blood work from today. ASSESSMENT: 1. Acute on chronic abdominal pain with a prior history of Crohn's disease with no evidence on the last colonoscopy. 2. Possible acute on chronic pancreatitis flare up. 3. Chronic rheumatoid arthritis on Humira. 4. Moderate protein-calorie malnutrition from decreased oral intake. 5. Chronic esophagitis. PLAN: I had a long talk with the patient. She is due to follow up at [facility] or [place] as been quoted by Dr. Nagy. Hopefully patient can be discharged tomorrow on a soft bland diet. MMODL / IJN: [id number] /
[2018-03-29] MEDS: SODIUM CHLORIDE 0.9% 1,000 ML IV SCH ×3 (00:01→17:13)
[2018-03-29] MEDS: HYDROmorphone 1 MG/ML 1 ML SYRINGE IVP PRN ×5 (04:27→17:41)
[2018-03-29] MEDS ORDERED: PATIENT'S OWN (Alendronate Sodium [Fosamax] 70 MG) PO SCH (06:00)
[2018-03-29] MEDS: Lipase/Protease/Amylase [Creon Dr 24,000 Units Capsule] PO SCH ×3 (06:46→17:14)
[2018-03-29] MEDS: PANTOPRAZOLE 40 MG TABLET PO SCH (06:46)
[2018-03-29] MEDS: ONDANSETRON 4 MG/2 ML VIAL IVP PRN ×2 (07:36→17:41)
[2018-03-29] MEDS: TOPIRAMATE 25 MG TAB PO SCH (07:48)
[2018-03-29 12:00] VITALS: PULSE 55
[2018-03-29 15:26] VITALS: BP 101/62; RESP 16; TEMP 98.7
--- NOTE | 2018-04-04 17:01 | DS ---
DISCHARGE SUMMARY DATE OF ADMISSION: 03/27/2018. DATE OF DISCHARGE: 03/29/2018 FINAL DIAGNOSES: 1. Possible acute on chronic pancreatitis flare up. 2. Chronic rheumatoid arthritis on Humira. 3. Moderate protein-calorie malnutrition from decreased p.o. intake. 4. Chronic esophagitis. CONSULTATIONS: Dr. Jamari Bonilla from Gastroenterology. HOSPITAL COURSE: This is a patient with rather extensive medical history, does follow up with Dr. Nagy, who has been on chronic pain medications. The patient did have a colonoscopy by Dr. Nagy a year ago, found to have nonspecific colitis and esophagitis. The patient did have Crohn's disease in the past. The patient has also got some chronic pancreatitis. The patient keeps abdominal pain flare-up. No clear-cut diagnosis has been made. Dr. Nagy's office is coordinating a followup at [facility]. The patient yet again presented with abdominal pain. Diet was cut back. Given IV pain medications. Doing somewhat relatively better. Tolerating a diet. No further nausea or vomiting by the time of discharge. Care was discussed with the patient. She will follow up at [facility]. PHYSICAL EXAMINATION: Temperature 98.7, pulse 55, respirations 16, blood pressure 101/62, pulse ox 100 percent on room air. ABDOMEN: Soft, mild tender. No guarding or rigidity. DISCHARGE MEDICATIONS: 1. Fosamax 70 mg p.o. on Wednesdays. 2. Imitrex 100 mg p.o. daily p.r.n. 3. Omeprazole 20 mg p.o. daily. 4. Zofran 8 mg p.o. t.i.d. p.r.n. 5. Creon 24,000 units 3 capsules p.o. a.c. t.i.d. 6. Claritin 10 mg a day. 7. Singulair 10 mg q.h.s. 8. MS Contin 30 mg p.o. q.8. 9. Morphine sulfate immediate release 50 mg p.o. b.i.d. p.r.n. 10.Humira 40 mg subcu Q 14 days. 11.Topamax 50 mg p.o. b.i.d. FOLLOWUP: Follow up with Dr. Nagy on April 10, 2018, follow up with Dr. Dobbins on 03/30/2018. DIET: Full liquids, advance as tolerated. Dr. Nagy's office setting up patient to follow up at [facility]. Copy to Dr. Dobbins. [id number] / SAYRAN: [id number] /
== END 2018-03-29 18:26 | disposition home or self-care (01) ==
LOC: EC 00:34 → 6PED 04:28 → INTOOBSV 04:28 → 6PED 20:48 → UNDODISIN 03-29 18:26
PROVIDERS: ADMIT Hospitalist; ATTEND Hospitalist
DX: K52.9 Noninfective gastroenteritis and colitis, unspecified (principal); E44.0 Moderate protein-calorie malnutrition; Z68.1 Body mass index [BMI] 19.9 or less, adult; K86.1 Other chronic pancreatitis; K50.00 Crohn's disease of small intestine without complications; M06.9 Rheumatoid arthritis, unspecified; K21.0 Gastro-esophageal reflux disease with esophagitis; G62.9 Polyneuropathy, unspecified; G89.4 Chronic pain syndrome; K57.90 Diverticulosis of intestine, part unspecified, without perforation or abscess without bleeding; M19.90 Unspecified osteoarthritis, unspecified site; Z79.83 Long term (current) use of bisphosphonates; Z79.899 Other long term (current) drug therapy; Z82.49 Family history of ischemic heart disease and other diseases of the circulatory system; Z87.440 Personal history of urinary (tract) infections; Z87.11 Personal history of peptic ulcer disease; Z79.891 Long term (current) use of opiate analgesic; Z88.8 Allergy status to other drugs, medicaments and biological substances; Z90.49 Acquired absence of other specified parts of digestive tract
CPT/HCPCS: 96376 ×4; 96361; 96372; 96374; 96375; 99284; 36415; 80053; 82150; 83690; 85025; 85610; 85730; 81001; 81025; G0378 ×3; J3250; J2405 ×3; J1170 ×3

== ENCOUNTER 2018-03-30 12:22 | Emergency (ER) | payer OTHER ==
[2018-03-30 12:50] VITALS: RESP 18
[2018-03-30] MEDS ORDERED: ONDANSETRON 4 MG/2 ML VIAL IVP STA (13:52)
[2018-03-30] MEDS ORDERED: SODIUM CHLORIDE 0.9% 1,000 ML IV STA (13:52)
--- NOTE | 2018-03-30 13:55 | ED ---
General Adult HPI - General Chief complaint: Abdominal Pain Stated complaint: abd pain Time Seen by Provider: 03/30/18 13:45 Source: patient, RN notes reviewed Mode of arrival: ambulatory Limitations: no limitations - History of Present Illness Initial comments: Patient 42-year-old female seen with a past medical history for chronic pancreatic tenderness, presented to the emergency room today with a chief complaint of upper abdominal pain over the last 5 days. Patient does admit that she was recently seen in the emergency room and admitted to the hospital. She states she was released yesterday. She states that they're hoping that she was unable to follow-up with specialist on [facility]. She states she is unable to see the specialist until the end of the month. Patient does admit that she talked to her GI doctor locally who advised to come back to the emergency room here. She states had nausea vomiting and abdominal pain. She states is located in the upper abdomen and consistent with chronic abdominal pain that she 's had in the past. She denies any other complaints or symptoms at this time. Patient denies any recent fever, chills, shortness of breath, chest pain, numbness or tingling, dysuria or hematuria, constipation, headaches or visual changes, or any other complaints. - Related Data Home Medications Medication Instructions Recorded Confirmed Alendronate Sodium [Fosamax] 70 mg PO WE 06/07/16 03/30/18 SUMAtriptan SUCCINATE [Imitrex] 100 mg PO DAILY PRN 06/07/16 03/30/18 Omeprazole 20 mg PO DAILY 08/05/16 03/30/18 Ondansetron [Zofran ODT] 8 mg PO TID PRN 08/18/16 03/30/18 Lipase/Protease/Amylase [Thor Dr 3 cap PO AC-TID 09/14/16 03/30/18 24,000 Units Capsule] Loratadine 10 mg PO DAILY 09/14/16 03/30/18 Montelukast Sodium [Singulair] 10 mg PO HS 09/14/16 03/30/18 Morphine Sulfate ER [Ms Contin] 30 mg PO Q8H 09/14/16 03/30/18 Morphine Sulfate Ir [MSIR] 15 mg PO BID PRN 09/14/16 03/30/18 Adalimumab [Humira Pen] 40 mg SQ [id number] 12/25/16 03/30/18 Topiramate [Topamax] 50 mg PO BID 02/02/17 03/30/18 Allergies Allergy/AdvReac Type Severity Reaction Status Date / Time metoclopramide [From Reglan] AdvReac Intermediate Twitching Verified 03/30/18 14 :03 Review of Systems ROS Statement: Those systems with pertinent positive or pertinent negative responses have been documented in the HPI. ROS Other: All systems not noted in ROS Statement are negative. Past Medical History Past Medical History: Eye Disorder, GERD/Reflux, GI Bleed, Neurologic Disorder, Osteoarthritis (OA), Rheumatoid Arthritis (RA) Additional Past Medical History / Comment(s): Chronic pancreatitis, Crohn's disease, blood in stool, diverticulosis, hx ulcers, frequent UTI'S, hx blood clots in arm, hx anemia, hx kidney failure from dehydration 12 yrs ago, neuropathy, cataracts. History of Any Multi-Drug Resistant Organisms: None Reported Past Surgical History: Cholecystectomy Additional Past Surgical History / Comment(s): colonsocopy, EGD Past Anesthesia/Blood Transfusion Reactions: No Reported Reaction Additional Past Anesthesia/Blood Transfusion Reaction / Comment(s): Has had about 13 blood transfusions. Past Psychological History: No Psychological Hx Reported Smoking Status: Never smoker Past Alcohol Use History: None Reported Past Drug Use History: Marijuana - Past Family History Father Family Medical History: Myocardial Infarction ([place]) Additional Family Medical History / Comment(s): biological father had hx of drug abuse Mother Family Medical History: Hypertension General Exam - General Exam Comments Initial Comments: General: The patient is awake and alert, in no distress, and does not appear acutely ill. Eye: Extra-ocular movements are intact. No nystagmus. There is normal conjunctiva bilaterally. No signs of icterus. Ears, nose, mouth and throat: There are moist mucous membranes and no oral lesions. Neck: The neck is supple, there is no tenderness or JVD. Cardiovascular: There is a regular rate and rhythm. No murmur, rub or gallop is appreciated. Respiratory: Lungs are clear to auscultation, respirations are non-labored, breath sounds are equal. No wheezes, stridor, rales, or rhonchi. Gastrointestinal: Abdomen soft on palpation. Patient does have tenderness epigastric and left upper quadrant. No rebound, guarding or CVA tenderness. Musculoskeletal: Normal ROM, no tenderness. Sensation intact. Strength 5/5. Pulses equal bilaterally 2+. Neurological: A&O x 3. CN II-XII intact, There are no obvious motor or sensory deficits. Coordination appears grossly intact. Speech is normal. Skin: Skin is warm and dry and no rashes or lesions are noted. Psychiatric: Cooperative, appropriate mood & affect, normal judgment. Limitations: no limitations Course Vital Signs 03/30/18 12:48 Temperature 99.3 F Pulse Rate 68 Respiratory 18 Rate Blood Pressure 115/85 O2 Sat by Pulse 99 Oximetry Medical Decision Making - Medical Decision Making Patient's labs been reviewed are unremarkable. Case was discussed with attending physician Dr Villarreal who did discuss the case with patient's GI doctor Francie recommends the patient does need to follow-up through specialist through [facility]. Patient states that she is trying to make this follow-up appointment. Patient's labs are unremarkable. Symptoms are improved. Abdomen soft on palpation. Patient will be discharged home to follow-up with GI. - Lab Data Result diagrams: 03/30/18 14:20 03/30/18 14:20 Lab Results 03/30/18 03/30/18 03/30/18 Range/Units 13:55 14:20 14:20 WBC 8.2 (3.8-10.6) k/uL RBC 4.94 (3.80-5.40) m/uL Hgb 14.9 (11.4-16.0) gm/dL Hct 45.3 (34.0-46.0) % MCV 91.7 (80.0-100.0) fL MCH 30.1 (25.0-35.0) pg MCHC 32.9 (31.0-37.0) g/dL RDW 13.3 (11.5-15.5) % Plt Count 193 (150-450) k/uL Neutrophils % 72 % Lymphocytes % 20 % Monocytes % 5 % Eosinophils % 2 % Basophils % 0 % Neutrophils # 6.0 (1.3-7.7) k/uL Lymphocytes # 1.6 (1.0-4.8) k/uL Monocytes # 0.4 (0-1.0) k/uL Eosinophils # 0.1 (0-0.7) k/uL Basophils # 0.0 (0-0.2) k/uL Sodium 143 (137-145) mmol/L Potassium 4.1 (3.5-5.1) mmol/L Chloride 114 H (98-107) mmol/L Carbon Dioxide 19 L (22-30) mmol/L Anion Gap 10 mmol/L BUN 6 L (7-17) mg/dL Creatinine 0.66 (0.52-1.04) mg/dL Est GFR (CKD-EPI)AfAm >90 (>60 ml/min/1.73 sqM) Est GFR (CKD-EPI)NonAf >90 (>60 ml/min/1.73 sqM) Glucose 81 (74-99) mg/dL Calcium 10.0 (8.4-10.2) mg/dL Total Bilirubin 1.4 H (0.2-1.3) mg/dL AST 25 (14-36) U/L ALT 17 (9-52) U/L Alkaline Phosphatase 54 (38-126) U/L Total Protein 7.4 (6.3-8.2) g/dL Albumin 4.5 (3.5-5.0) g/dL Amylase 72 (30-110) U/L Lipase 189 (23-300) U/L Urine Color Yellow Urine Appearance Cloudy H (Clear) Urine pH 7.0 (5.0-8.0) Ur Specific [place] 1.013 (1.001-1.035) Urine Protein Negative (Negative) Urine Glucose (UA) Negative (Negative) Urine Ketones 1+ H (Negative) Urine Blood Negative (Negative) Urine Nitrite Negative (Negative) Urine Bilirubin Negative (Negative) Urine Urobilinogen 2.0 (<2.0) mg/dL Ur Leukocyte Esterase Trace H (Negative) Urine RBC 4 (0-5) /hpf Ur Squamous Epith Cells 5 H (0-4) /hpf Urine Bacteria Rare H (None) /hpf Hyaline Casts 1 (0-2) /lpf Urine Mucus Many H (None) /hpf Disposition Clinical Impression: Chronic abdominal pain Disposition: HOME SELF-CARE Condition: Good Instructions: Abdominal Pain (ED) Additional Instructions: Please use medication as discussed. Please follow-up with GI/family doctor in the next 2 days of symptoms have not improved. Please return to emergency room if the symptoms increase or worsen or for any other concerns. Is patient prescribed a controlled substance at d/c from ED?: No Referrals: Derek Dobbins MD [Primary Care Provider] - 1-2 days Anthony Nagy MD [STAFF PHYSICIAN] - 1-2 days Time of Disposition: 15:53
[2018-03-30 14:31] LABS: Basophils % (A) 0 %; Eosinophils # (A) 0.1 k/uL (0-0.7); Eosinophils % (A) 2 %; HCT 45.3 % (34.0-46.0); HGB 14.9 gm/dL (11.4-16.0); Lymphocytes # (A) 1.6 k/uL (1.0-4.8); Lymphocytes % (A) 20 %; MCH 30.1 pg (25.0-35.0); MCHC 32.9 g/dL (31.0-37.0); MCV 91.7 fL (80.0-100.0); Mean Platelet Volume 6.9; Monocytes # (A) 0.4 k/uL (0-1.0); Monocytes % (A) 5 %; Neutrophils % (A) 72 %; Platelet Count 193 k/uL (150-450); RBC 4.94 m/uL (3.80-5.40); RDW 13.3 % (11.5-15.5); WBC 8.2 k/uL (3.8-10.6)
[2018-03-30] MEDS ORDERED: MORPHINE SULFATE/PF 10MG/10ML VL IVP STA (14:31)
[2018-03-30] MEDS ORDERED: MORPHINE SULFATE 4 MG/ML SYRINGE IVP STA ×2 (14:31→14:33)
[2018-03-30 14:32] LABS: Appearance,Urine Cloudy (Clear); Bacteria,Urine Rare /hpf; Bilirubin,Urine Negative (Negative); Blood,Urine Negative (Negative); Color,Urine Yellow; Glucose,Urine (UA) Negative (Negative); Hyaline Casts,Urine 1 /lpf (0-2); Ketones,Urine 1+ (Negative); Leukocyte Esterase,Urine Trace (Negative); Mucus,Urine Many /hpf; Nitrite,Urine Negative (Negative); Protein,Urine Negative (Negative); RBC,Urine 4 /hpf (0-5); Specific Gravity,Urine 1.013 (1.001-1.035); Squamous Epithelial Cell,Urine 5 /hpf (0-4)
[2018-03-30 14:41] LABS: Amylase 72 U/L (30-110); Anion Gap 10 mmol/L; Blood Urea Nitrogen 6 mg/dL (7-17); Carbon Dioxide 19 mmol/L (22-30); Chloride 114 mmol/L (98-107); Glucose 81 mg/dL (74-99); Lipase 189 U/L (23-300); Sodium 143 mmol/L (137-145); Total Bilirubin 1.4 mg/dL (0.2-1.3)
[2018-03-30 14:50] LABS: ALT 17 U/L (9-52); AST 25 U/L (14-36); Albumin 4.5 g/dL (3.5-5.0); Alkaline Phosphatase 54 U/L (38-126); Potassium 4.1 mmol/L (3.5-5.1); Total Protein 7.4 g/dL (6.3-8.2)
--- NOTE | 2018-03-30 15:07 | XR ---
Abdomen HISTORY: Neck tightness, pain, vomiting Frontal view of the abdomen on 2 images correlated to prior abdomen 01/25/[address] abdomen pelvis 02/26/2018 Surgical clips present right upper quadrant. Lung bases are clear. There is no evident pneumoperitone um. Small air-fluid levels are present without bowel distention. IMPRESSION: There may be an underlying ileus or enteritis, follow-up as indicated.
[2018-03-30] MEDS ORDERED: MORPHINE SULFATE 4 MG/ML SYRINGE IV STA (15:51)
[2018-03-30] MEDS ORDERED: PROMETHAZINE INJ 25 MG in SODIUM CHLORIDE 0.9% 50 ML IVPB STA (15:53)
[2018-03-30 16:19] VITALS: BP 103/62; PULSE 55; TEMP 98
== END 2018-03-30 17:15 | disposition home or self-care (01) ==
LOC: EC 12:22
DX: R10.10 Upper abdominal pain, unspecified (principal); G89.29 Other chronic pain; R11.2 Nausea with vomiting, unspecified; K21.9 Gastro-esophageal reflux disease without esophagitis; M19.90 Unspecified osteoarthritis, unspecified site; M06.9 Rheumatoid arthritis, unspecified; K50.90 Crohn's disease, unspecified, without complications; Z87.19 Personal history of other diseases of the digestive system; Z87.440 Personal history of urinary (tract) infections; Z90.49 Acquired absence of other specified parts of digestive tract; Z98.890 Other specified postprocedural states; Z79.83 Long term (current) use of bisphosphonates; Z79.891 Long term (current) use of opiate analgesic; Z79.899 Other long term (current) drug therapy; Z88.8 Allergy status to other drugs, medicaments and biological substances
CPT/HCPCS: 36415; 80053; 82150; 83690; 85025; 81001; 74018; 99284; 96365; 96375 ×2; 96376; 96361; J2270; J2550; J2405

== ENCOUNTER 2018-03-31 03:06 | Observation (INO) | payer OTHER ==
[2018-03-31 03:56] LABS: Basophils % (A) 0 %; Eosinophils # (A) 0.1 k/uL (0-0.7); Eosinophils % (A) 1 %; HCT 45.8 % (34.0-46.0); HGB 15.2 gm/dL (11.4-16.0); Lymphocytes # (A) 2.3 k/uL (1.0-4.8); Lymphocytes % (A) 35 %; MCH 30.9 pg (25.0-35.0); MCHC 33.2 g/dL (31.0-37.0); MCV 93.1 fL (80.0-100.0); Mean Platelet Volume 6.8; Monocytes # (A) 0.4 k/uL (0-1.0); Monocytes % (A) 6 %; Neutrophils # (A) 3.7 k/uL (1.3-7.7); Neutrophils % (A) 57 %; Platelet Count 211 k/uL (150-450); RBC 4.92 m/uL (3.80-5.40); RDW 13.4 % (11.5-15.5); WBC 6.5 k/uL (3.8-10.6)
[2018-03-31] MEDS ORDERED: PROCHLORPERAZINE 5 MG TAB PO STA (04:01)
[2018-03-31] MEDS ORDERED: ONDANSETRON 4 MG/2 ML VIAL IVP STA (04:01)
[2018-03-31 04:06] LABS: ALT 23 U/L (9-52); AST 17 U/L (14-36); Albumin 4.6 g/dL (3.5-5.0); Alkaline Phosphatase 51 U/L (38-126); Amylase 67 U/L (30-110); Anion Gap 10 mmol/L; Blood Urea Nitrogen 6 mg/dL (7-17); Calcium 9.8 mg/dL (8.4-10.2); Carbon Dioxide 23 mmol/L (22-30); Chloride 109 mmol/L (98-107); Glucose 87 mg/dL (74-99); Lipase 212 U/L (23-300); Potassium 3.5 mmol/L (3.5-5.1); Sodium 142 mmol/L (137-145); Total Bilirubin 1.5 mg/dL (0.2-1.3); Total Protein 7.4 g/dL (6.3-8.2)
[2018-03-31] MEDS ORDERED: MORPHINE SULFATE ER 30 MG TABLET PO STA (04:14)
--- NOTE | 2018-03-31 04:17 | ED ---
Abdominal Pain HPI - General Chief Complaint: Abdominal Pain Stated Complaint: abd pain,NVD Time Seen by Provider: 03/31/18 03:36 Source: patient Mode of arrival: ambulatory Limitations: no limitations - History of Present Illness MD Complaint: abdominal pain -: days(s) Location: epigastric Radiation: back Migration to: no migration Severity: severe Quality: aching, other (pressure) Consistency: constant Improves With: nothing Worsens With: eating Associated Symptoms: nausea, vomiting - Related Data Home Medications Medication Instructions Recorded Confirmed Alendronate Sodium [Fosamax] 70 mg PO WE 06/07/16 03/30/18 SUMAtriptan SUCCINATE [Imitrex] 100 mg PO DAILY PRN 06/07/16 03/30/18 Omeprazole 20 mg PO DAILY 08/05/16 03/30/18 Ondansetron [Zofran ODT] 8 mg PO TID PRN 08/18/16 03/30/18 Lipase/Protease/Amylase [Creon Dr 3 cap PO AC-TID 09/14/16 03/30/18 24,000 Units Capsule] Loratadine 10 mg PO DAILY 09/14/16 03/30/18 Montelukast Sodium [Singulair] 10 mg PO HS 09/14/16 03/30/18 Morphine Sulfate ER [Ms Contin] 30 mg PO Q8H 09/14/16 03/30/18 Morphine Sulfate Ir [MSIR] 15 mg PO BID PRN 09/14/16 03/30/18 Adalimumab [Humira Pen] 40 mg SQ [id number] 12/25/16 03/30/18 Topiramate [Topamax] 50 mg PO BID 02/02/17 03/30/18 Allergies Allergy/AdvReac Type Severity Reaction Status Date / Time metoclopramide [From Reglan] AdvReac Intermediate Twitching Verified 03/31/18 03 :15 Review of Systems ROS Statement: Those systems with pertinent positive or pertinent negative responses have been documented in the HPI. ROS Other: All systems not noted in ROS Statement are negative. Constitutional: Denies: fever, chills Respiratory: Denies: cough, dyspnea Cardiovascular: Denies: chest pain, palpitations, edema Gastrointestinal: Reports: abdominal pain, nausea. Denies: diarrhea, constipation, melena, hematochezia Genitourinary: Denies: dysuria, hematuria Musculoskeletal: Denies: back pain Skin: Denies: rash Neurological: Denies: headache, weakness, numbness Past Medical History Past Medical History: Eye Disorder, GERD/Reflux, GI Bleed, Neurologic Disorder, Osteoarthritis (OA), Rheumatoid Arthritis (RA) Additional Past Medical History / Comment(s): Chronic pancreatitis, Crohn's disease, blood in stool, diverticulosis, hx ulcers, frequent UTI'S, hx blood clots in arm, hx anemia, hx kidney failure from dehydration 12 yrs ago, neuropathy, cataracts. History of Any Multi-Drug Resistant Organisms: None Reported Past Surgical History: Cholecystectomy Additional Past Surgical History / Comment(s): colonsocopy, EGD Past Anesthesia/Blood Transfusion Reactions: No Reported Reaction Additional Past Anesthesia/Blood Transfusion Reaction / Comment(s): Has had about 13 blood transfusions. Past Psychological History: No Psychological Hx Reported Smoking Status: Never smoker Past Alcohol Use History: None Reported Past Drug Use History: Marijuana - Past Family History Father Family Medical History: Myocardial Infarction ([place]) Additional Family Medical History / Comment(s): biological father had hx of drug abuse Mother Family Medical History: Hypertension General Exam Limitations: no limitations General appearance: alert, in no apparent distress Head exam: Present: atraumatic, normocephalic Eye exam: Present: normal appearance. Absent: scleral icterus, conjunctival injection ENT exam: Present: normal oropharynx Neck exam: Present: normal inspection, full ROM Respiratory exam: Present: normal lung sounds bilaterally. Absent: respiratory distress, wheezes, rales, rhonchi, stridor Cardiovascular Exam: Present: regular rate, normal rhythm, normal heart sounds. Absent: systolic murmur, diastolic murmur, rubs, gallop GI/Abdominal exam: Present: soft, normal bowel sounds. Absent: distended, tenderness, guarding, rebound, rigid, mass, pulsatile mass, hernia Extremities exam: Present: normal inspection, normal capillary refill. Absent: pedal edema, calf tenderness Back exam: Present: normal inspection. Absent: CVA tenderness (R), CVA tenderness (L) Neurological exam: Present: alert Skin exam: Present: warm, dry, intact, normal color. Absent: rash Course Vital Signs 03/31/18 03:13 Temperature 98.4 F Pulse Rate 70 Respiratory 16 Rate Blood Pressure 119/76 O2 Sat by Pulse 100 Oximetry Medical Decision Making - Lab Data Result diagrams: 03/31/18 03:50 03/31/18 03:50 Lab Results 03/31/18 03/31/18 03/31/18 Range/Units 03:50 03:50 04:35 WBC 6.5 (3.8-10.6) k/uL RBC 4.92 (3.80-5.40) m/uL Hgb 15.2 (11.4-16.0) gm/dL Hct 45.8 (34.0-46.0) % MCV 93.1 (80.0-100.0) fL MCH 30.9 (25.0-35.0) pg MCHC 33.2 (31.0-37.0) g/dL RDW 13.4 (11.5-15.5) % Plt Count 211 (150-450) k/uL Neutrophils % 57 % Lymphocytes % 35 % Monocytes % 6 % Eosinophils % 1 % Basophils % 0 % Neutrophils # 3.7 (1.3-7.7) k/uL Lymphocytes # 2.3 (1.0-4.8) k/uL Monocytes # 0.4 (0-1.0) k/uL Eosinophils # 0.1 (0-0.7) k/uL Basophils # 0.0 (0-0.2) k/uL Sodium 142 (137-145) mmol/L Potassium 3.5 (3.5-5.1) mmol/L Chloride 109 H (98-107) mmol/L Carbon Dioxide 23 (22-30) mmol/L Anion Gap 10 mmol/L BUN 6 L (7-17) mg/dL Creatinine 0.66 (0.52-1.04) mg/dL Est GFR (CKD-EPI)AfAm >90 (>60 ml/min/1.73 sqM) Est GFR (CKD-EPI)NonAf >90 (>60 ml/min/1.73 sqM) Glucose 87 (74-99) mg/dL Calcium 9.8 (8.4-10.2) mg/dL Total Bilirubin 1.5 H (0.2-1.3) mg/dL AST 17 (14-36) U/L ALT 23 (9-52) U/L Alkaline Phosphatase 51 (38-126) U/L Total Protein 7.4 (6.3-8.2) g/dL Albumin 4.6 (3.5-5.0) g/dL Amylase 67 (30-110) U/L Lipase 212 (23-300) U/L Urine Color Yellow Urine Appearance Clear (Clear) Urine pH 7.0 (5.0-8.0) Ur Specific [place] 1.012 (1.001-1.035) Urine Protein Negative (Negative) Urine Glucose (UA) Negative (Negative) Urine Ketones Negative (Negative) Urine Blood Negative (Negative) Urine Nitrite Negative (Negative) Urine Bilirubin Negative (Negative) Urine Urobilinogen 8.0 (<2.0) mg/dL Ur Leukocyte Esterase Negative (Negative) Disposition Clinical Impression: Intractable abdominal pain Disposition: ADMITTED IP TO THIS HOSP Condition: Fair Instructions: Abdominal Pain (ED) Referrals: Derek Dobbins MD [Primary Care Provider] - 1-2 days
[2018-03-31 04:47] LABS: Appearance,Urine Clear (Clear); Bilirubin,Urine Negative (Negative); Blood,Urine Negative (Negative); Color,Urine Yellow; Glucose,Urine (UA) Negative (Negative); Ketones,Urine Negative (Negative); Leukocyte Esterase,Urine Negative (Negative); Nitrite,Urine Negative (Negative); Protein,Urine Negative (Negative); Specific Gravity,Urine 1.012 (1.001-1.035)
[2018-03-31] MEDS ORDERED: MORPHINE SULFATE IR 15 MG TABLET PO STA (05:30)
[2018-03-31] MEDS ORDERED: MORPHINE SULFATE 4 MG/ML SYRINGE IV STA (06:36)
[2018-03-31] MEDS ORDERED: NALOXONE 0.4 MG/ML 1 ML VIAL IV PRN (06:48)
[2018-03-31] MEDS ORDERED: PROCHLORPERAZINE 5 MG TAB PO PRN (06:48)
[2018-03-31] MEDS ORDERED: ONDANSETRON 4 MG/2 ML VIAL IVP PRN (06:48)
[2018-03-31] MEDS ORDERED: ONDANSETRON ODT 8 MG TAB.RAPDIS PO PRN (06:50)
[2018-03-31] MEDS ORDERED: MORPHINE SULFATE IR 15 MG TABLET PO PRN (06:50)
[2018-03-31] MEDS ORDERED: SUMAtriptan SUCCINATE 50 MG TAB PO PRN (06:50)
[2018-03-31] MEDS ORDERED: SODIUM CHLORIDE 0.9% 1,000 ML IV SCH (07:00)
[2018-03-31] MEDS ORDERED: CREON 24000 UNIT PO SCH (07:30)
[2018-03-31 08:13] VITALS: RESP 16
[2018-03-31] MEDS ORDERED: PANTOPRAZOLE 40 MG TABLET PO SCH (09:00)
[2018-03-31] MEDS ORDERED: FAMOTIDINE 20 MG TAB PO SCH (09:00)
[2018-03-31] MEDS ORDERED: TOPIRAMATE 25 MG TAB PO SCH (09:00)
[2018-03-31 10:29] VITALS: BMI 17.6
[2018-03-31] MEDS ORDERED: MORPHINE SULFATE ER 30 MG TABLET PO SCH (12:00)
--- NOTE | 2018-03-31 13:19 | P.CONS ---
History of Present Illness - Reason for Consult Consult date: 03/31/18 abdominal pain Requesting physician: Jayde Coombs - Chief Complaint abdominal pain - History of Present Illness 42-year-old female well-known to the GI service for past medical history of Crohn's disease, pancreatitis, gastroparesis, chronic abdominal pain requiring multiple hospitalizations over the last several months. Patient was discharged earlier this week secondary to chronic abdominal pain nausea vomiting. She's had a full serologic and diagnostic workup in the past regarding these symptoms no evidences suggest her symptoms were related to Crohn's exacerbation. She is on Humira for a history of rheumatoid arthritis. She was discharged 2 days ago went home developed increased nausea vomiting without diarrhea hematemesis hematochezia or melena. No fever or chills. She came to the emergency room for IV hydration. Patient is very frustrated tearful. She was advised to follow-up a [facility] for further investigation of her GI symptoms but was told the earliest appointment would be the end of April. She is intolerant to Reglan causes extrapyramidal effects. Denies fever or chills. Biochemically labs are unremarkable. White count 6.5. Hemoglobin 15.2. Lipase 212. LFTs within normal limits except total bilirubin is 1.5. Review of Systems Constitutional: Denies fever, chills, sweats, weight gain, or loss. HEENT: Negative for migraines, blurred vision or loss, earaches, drainage, tinnitus, oral mucosal lesions, dysphagia, or odynophagia. CARDIAC: Negative for chest pain, arrhythmias, or palpitation. RESPIRATORY: Negative for shortness of breath, hemoptysis, cough, or sputum production. GI: See HPI for pertinent findings. : Negative for hematuria, urgency, frequency, polyuria, or dysuria. GYNc: Denies possibility of . Negative vaginal discharge. MUSCULOSKELETAL: Negative for muscle aches, swelling, arthritis, and arthralgias. NEUROLOGIC: Negative for stroke or TIA. ENDOCRINE: Negative for thyroid problems. SKIN: Negative for rash or itching. PSYCHIATRIC: Negative history for depression and anxiety Past Medical History Past Medical History: Eye Disorder, GERD/Reflux, GI Bleed, Neurologic Disorder, Osteoarthritis (OA), Rheumatoid Arthritis (RA) Additional Past Medical History / Comment(s): Chronic pancreatitis, Crohn's disease, chronic esophagitis, blood in stool, diverticulosis, hx ulcers, frequent UTI'S, hx blood clots in bilateral arms pt states d/t picc lines, hx anemia with numerous transfusions, hx kidney failure from dehydration 12 yrs ago , neuropathy, cataracts. History of Any Multi-Drug Resistant Organisms: None Reported Past Surgical History: Cholecystectomy Additional Past Surgical History / Comment(s): colonsocopies, EGDs Past Anesthesia/Blood Transfusion Reactions: No Reported Reaction Additional Past Anesthesia/Blood Transfusion Reaction / Comm: Has had about 13 blood transfusions. Smoking Status: Never smoker - Past Family History Father Family Medical History: Myocardial Infarction ([place]) Additional Family Medical History / Comment(s): Father had drug abuse problem. He of a DC at the age of 61 yrs. Mother Family Medical History: Hypertension Additional Family Medical History / Comment(s): Mother is living. Medications and Allergies Home Medications Medication Instructions Recorded Confirmed Type Alendronate Sodium [Fosamax] 70 mg PO WE 06/07/16 03/31/18 History SUMAtriptan SUCCINATE [Imitrex] 100 mg PO DAILY PRN 06/07/16 03/31/18 History Omeprazole 20 mg PO DAILY 08/05/16 03/31/18 History Ondansetron [Zofran ODT] 8 mg PO TID PRN 08/18/16 03/31/18 History Lipase/Protease/Amylase [Thor Ambrocio 3 cap PO AC-TID 09/14/16 03/31/18 History 24,000 Units Capsule] Loratadine 10 mg PO DAILY 09/14/16 03/31/18 History Montelukast Sodium [Singulair] 10 mg PO HS 09/14/16 03/31/18 History Morphine Sulfate ER [Ms Contin] 30 mg PO Q8H 09/14/16 03/31/18 History Morphine Sulfate Ir [MSIR] 15 mg PO BID PRN 09/14/16 03/31/18 History Adalimumab [Humira Pen] 40 mg SQ [id number] 12/25/16 03/31/18 History Topiramate [Topamax] 50 mg PO BID 02/02/17 03/31/18 History Allergies Allergy/AdvReac Type Severity Reaction Status Date / Time metoclopramide [From Reglan] AdvReac Intermediate Twitching Verified 03/31/18 07 :00 Physical Exam Vitals: Vital Signs Temp Pulse Pulse Resp BP BP Pulse Ox 03/31/18 07:56 97.8 F 53 L 16 116/72 100 03/31/18 07:12 98.5 F 70 18 111/63 98 03/31/18 03:13 98.4 F 70 16 119/76 100 Intake and Output 03/30/18 03/31/18 03/31/18 22:59 06:59 14:59 Other: Weight 45.359 kg 45.359 kg General appearance: The patient is alert, oriented, in no acute distress. HET: Head is normocephalic and atraumatic. Pupils are equal and reactive. Oropharynx is clear without lesions. Neck: Supple without lymphadenopathy. Trachea midline. Heart: S1 S2. Regular rate and rhythm. Lungs: No crackles or wheezes are heard. Abdomen: Soft, nontender, nondistended with bowel sounds. No peritoneal signs. No palpable organomegaly or masses. Extremities: Normal skin color and turgor. No cyanosis, rash, ulceration, clubbing, or edema. Radial and pedal pulses are 2/4 bilaterally. Neurological: No focal deficits. Strength and sensation are grossly intact. Results CBC & Chem 7: 03/31/18 03:50 03/31/18 03:50 Labs: Abnormal Lab Results - Last 24 Hours (Table) 03/31/18 Range/Units 03:50 Chloride 109 H (98-107) mmol/L BUN 6 L (7-17) mg/dL Total Bilirubin 1.5 H (0.2-1.3) mg/dL Assessment and Plan (1) Intractable abdominal pain Narrative/Plan: 42-year-old female with a history of acute on chronic intractable abdominal pain with an underlying history of reported Crohn's, chronic pancreatitis, gastroparesis rheumatoid arthritis maintained on Humira. Patient has been advised to follow-up a tertiary care center for further investigation of her GI symptoms. Current Visit: Yes Status: Acute Code(s): R10.9 - UNSPECIFIED ABDOMINAL PAIN SNOMED Code(s): 13382353 Plan: 1. Continue symptomatic supportive measures. Light diet as tolerated. Referral to [facility] in progress. Thank you for this kind referral and the opportunity to participate in the care of your patient. This consultation was discussed with Dr. Nagy. The impression and plan of care have been directed as dictated.
[2018-03-31 13:37] VITALS: BP 125/81; PULSE 60; TEMP 98.3
--- NOTE | 2018-03-31 15:31 | P.DS ---
Providers Date of admission: 03/31/18 06:50 Attending physician: Jayde Coombs Consults: 03/31/18 12:19 Consult Physician Routine Consulting Provider: Sadia Bonilla Consult Reason/Comments: Abdominal pain Do you want consulting provider notified?: Yes Primary care physician: Derek Dobbins [facility] Course: Please refer to my HPI Patient Condition at Discharge: Fair Plan - Discharge Summary Discharge Rx Participant: No New Discharge Prescriptions: No Action Alendronate Sodium [Fosamax] 70 mg PO WE SUMAtriptan SUCCINATE [Imitrex] 100 mg PO DAILY PRN PRN Reason: Migraine Headache Omeprazole 20 mg PO DAILY Ondansetron [Zofran ODT] 8 mg PO TID PRN PRN Reason: Nausea Lipase/Protease/Amylase [Thor Ambrocio 24,000 Units Capsule] 3 cap PO AC-TID Loratadine 10 mg PO DAILY Montelukast Sodium [Singulair] 10 mg PO HS Morphine Sulfate ER [Ms Contin] 30 mg PO Q8H Morphine Sulfate Ir [MSIR] 15 mg PO BID PRN PRN Reason: Breakthrough Pain Adalimumab [Humira Pen] 40 mg SQ [id number] Topiramate [Topamax] 50 mg PO BID Discharge Medication List Alendronate Sodium [Fosamax] 70 mg PO WE 06/07/16 [History] SUMAtriptan SUCCINATE [Imitrex] 100 mg PO DAILY PRN 06/07/16 [History] Omeprazole 20 mg PO DAILY 08/05/16 [History] Ondansetron [Zofran ODT] 8 mg PO TID PRN 08/18/16 [History] Lipase/Protease/Amylase [Thor Ambrocio 24,000 Units Capsule] 3 cap PO AC-TID [History] Loratadine 10 mg PO DAILY 09/14/16 [History] Montelukast Sodium [Singulair] 10 mg PO HS 09/14/16 [History] Morphine Sulfate ER [Ms Contin] 30 mg PO Q8H 09/14/16 [History] Morphine Sulfate Ir [MSIR] 15 mg PO BID PRN 09/14/16 [History] Adalimumab [Humira Pen] 40 mg SQ [id number] 12/25/16 [History] Topiramate [Topamax] 50 mg PO BID 02/02/17 [History] Follow up Appointment(s)/Referral(s): Derek Dobbins MD [Primary Care Provider] - 3 Days Patient Instructions/Handouts: Abdominal Pain (ED) Activity/Diet/Wound Care/Special Instructions: Continue lowfat diet, fluids encouraged. Follow up with [facility] testing as instructed by Jordana. Call family physician with any comments, questions or concerns, worsening or returning symptoms. Discharge Disposition: HOME SELF-CARE
--- NOTE | 2018-03-31 15:31 | P.HPIM ---
History of Present Illness 42-year-old female came in with comments of epigastric burning sensation severe abdominal pain nausea vomiting. Patient was extensively evaluated in the past was diagnosed with Crohn's disease chronic pancreatitis gastroparesis follows up with gastro-oncology as an outpatient extensive workup was done to her previous hospitalizations all of which was at that significant. An patient's symptomology is not consistent with Crohn's exacerbation. Patient's lipase is essentially within normal murmurs are do not believe patient has acute pancreatitis at this time. Abdomen is totally soft although there is subject to high presents as a rated tenderness response to palpation. Patient in the past was advised to follow up with a tertiary center for her abdominal pain. Same thing was discussed with the patient. I declined to provide her any more opiate and ALLERGIES Sicherman discharged after which patient started becoming emotional started crying about her abdominal pain. I consulted gastroenterology if they cleared her patient will be discharged today patient doesn't have any nausea vomiting here in the hospital. Review of Systems REVIEW OF SYSTEMS: CONSTITUTIONAL: No fever, no malaise, no fatigue. HEENT: No recent visual problems or hearing problems. Denied any sore throat. CARDIOVASCULAR: No chest pain, orthopnea, PND, no palpitations, no syncope. PULMONARY: No shortness of breath, no cough, no hemoptysis. GASTROINTESTINAL: As mentioned in HPI NEUROLOGICAL: No headaches, no weakness, no numbness. HEMATOLOGICAL: Denies any bleeding or petechiae. GENITOURINARY: Denies any burning micturition, frequency, or urgency. MUSCULOSKELETAL/RHEUMATOLOGICAL: Denies any joint pain, swelling, or any muscle pain. ENDOCRINE: Denies any polyuria or polydipsia. The rest of the 14-point review of systems is negative. Past Medical History Past Medical History: Eye Disorder, GERD/Reflux, GI Bleed, Neurologic Disorder, Osteoarthritis (OA), Rheumatoid Arthritis (RA) Additional Past Medical History / Comment(s): Chronic pancreatitis, Crohn's disease, chronic esophagitis, blood in stool, diverticulosis, hx ulcers, frequent UTI'S, hx blood clots in bilateral arms pt states d/t picc lines, hx anemia with numerous transfusions, hx kidney failure from dehydration 12 yrs ago , neuropathy, cataracts. History of Any Multi-Drug Resistant Organisms: None Reported Past Surgical History: Cholecystectomy Additional Past Surgical History / Comment(s): colonsocopies, EGDs Past Anesthesia/Blood Transfusion Reactions: No Reported Reaction Additional Past Anesthesia/Blood Transfusion Reaction / Comment(s): Has had about 13 blood transfusions. Smoking Status: Never smoker - Past Family History Father Family Medical History: Myocardial Infarction ([place]) Additional Family Medical History / Comment(s): Father had drug abuse problem. He of a [place] at the age of 61 yrs. Mother Family Medical History: Hypertension Additional Family Medical History / Comment(s): Mother is living. Medications and Allergies Home Medications Medication Instructions Recorded Confirmed Type Alendronate Sodium [Fosamax] 70 mg PO WE 06/07/16 03/31/18 History SUMAtriptan SUCCINATE [Imitrex] 100 mg PO DAILY PRN 06/07/16 03/31/18 History Omeprazole 20 mg PO DAILY 08/05/16 03/31/18 History Ondansetron [Zofran ODT] 8 mg PO TID PRN 08/18/16 03/31/18 History Lipase/Protease/Amylase [Thor Ambrocio 3 cap PO AC-TID 09/14/16 03/31/18 History 24,000 Units Capsule] Loratadine 10 mg PO DAILY 09/14/16 03/31/18 History Montelukast Sodium [Singulair] 10 mg PO HS 09/14/16 03/31/18 History Morphine Sulfate ER [Ms Contin] 30 mg PO Q8H 09/14/16 03/31/18 History Morphine Sulfate Ir [MSIR] 15 mg PO BID PRN 09/14/16 03/31/18 History Adalimumab [Humira Pen] 40 mg SQ [id number] 12/25/16 03/31/18 History Topiramate [Topamax] 50 mg PO BID 02/02/17 03/31/18 History Allergies Allergy/AdvReac Type Severity Reaction Status Date / Time metoclopramide [From Reglan] AdvReac Intermediate Twitching Verified 03/31/18 07 :00 Physical Exam Vitals: Vital Signs Temp Pulse Pulse Resp BP BP Pulse Ox 03/31/18 13:18 98.3 F 60 16 125/81 100 03/31/18 07:56 97.8 F 53 L 16 116/72 100 03/31/18 07:12 98.5 F 70 18 111/63 98 03/31/18 03:13 98.4 F 70 16 119/76 100 Intake and Output 03/31/18 03/31/18 03/31/18 06:59 14:59 22:59 Other: # Voids 1 Weight 45.359 kg 45.359 kg PHYSICAL EXAMINATION: GENERAL: The patient is alert and oriented x3, not in any acute distress. Well developed, well nourished. HEENT: Pupils are round and equally reacting to light. EOMI. No scleral icterus. No conjunctival pallor. Normocephalic, atraumatic. ABDOMEN: Soft, subjective hyper exaggerated tenderness response just with minimal touch MUSCULOSKELETAL: No joint swelling or deformity. EXTREMITIES: No cyanosis, clubbing, or pedal edema. NEUROLOGICAL: Gross neurological examination did not reveal any focal deficits. SKIN: No rashes. Results CBC & Chem 7: 03/31/18 03:50 03/31/18 03:50 Labs: Abnormal Lab Results - Last 24 Hours (Table) 03/31/18 Range/Units 03:50 Chloride 109 H (98-107) mmol/L BUN 6 L (7-17) mg/dL Total Bilirubin 1.5 H (0.2-1.3) mg/dL Thrombosis Risk Factor Assmnt - Choose All That Apply Any of the Below Risk Factors Present?: Yes Each Factor Represents 1 point: Age 41-60 years, Hx of IBD Other Risk Factors: No Other congenital or acquired thrombophilia - If yes, enter type in comment: No Thrombosis Risk Factor Assessment Total Risk Factor Score: 2 Thrombosis Risk Factor Assessment Level: Low Risk Assessment and Plan Plan: -Epigastric abdominal pain nausea vomiting: There may be some gastritis patient is already on Prilosec was extensively evaluated in the past was evaluated by gastroenterology here as well. No further intervention is being planned. The other differential is being narcotic seeking behavior or psychosomatic. -History of Crohn's disease -History of chronic pancreatitis -Gastroesophageal reflux disease -marijuana use
[2018-03-31] MEDS ORDERED: MONTELUKAST 10 MG TAB PO SCH (21:00)
[2018-04-12] MEDS ORDERED: ADALIMUMAB 80 MG/1.6 ML KIT SQ SCH (09:00)
== END 2018-03-31 14:33 | disposition home or self-care (01) ==
LOC: EC 03:06 → 6PED 06:50
PROVIDERS: ADMIT Hospitalist; ATTEND Hospitalist
DX: R10.13 Epigastric pain (principal); R11.2 Nausea with vomiting, unspecified; G89.29 Other chronic pain; K21.9 Gastro-esophageal reflux disease without esophagitis; K31.84 Gastroparesis; K50.90 Crohn's disease, unspecified, without complications; K86.1 Other chronic pancreatitis; M06.9 Rheumatoid arthritis, unspecified; Z79.83 Long term (current) use of bisphosphonates; Z82.49 Family history of ischemic heart disease and other diseases of the circulatory system; Z87.440 Personal history of urinary (tract) infections; Z90.49 Acquired absence of other specified parts of digestive tract; Z79.899 Other long term (current) drug therapy; Z88.8 Allergy status to other drugs, medicaments and biological substances
CPT/HCPCS: 96361 ×2; 96376; 96374; 96375; 99284; 36415; 80053; 82150; 83690; 85025; 81003; G0378; S0183; J2270; J2405

== ENCOUNTER → 2018-04-10 | Outpatient (CLI) | payer OTHER ==
--- NOTE | 2018-04-10 09:58 | CT ---
EXAMINATION TYPE: CT neck chest w con DATE OF EXAM: 04/10/2018 9:16 AM COMPARISON: CT abdomen dated 02/26/2018 HISTORY: Neck swelling after eating, occasional swelling under arms. CT DLP: 768.2 mGycm Automated exposure control for dose reduction was used. CONTRAST: CT scan of the neck is performed following with IV Contrast, patient injected with 100 mL of Isovue 3 00. Axial images are obtained, coronal and sagittal reformatted images are reviewed. FINDINGS: Airway: Inspissated secretions are seen along the true cords. Fossa of Rosenmuller, nasopharynx, orop harynx, and piriform sinuses are unremarkable. Probable secretions are also seen within the vallecula . Secretions limit evaluation for underlying polyp or mass.. Parotid/submandibular glands: Symmetric with no gross abnormality seen. Carotid/Vascular Structures: Carotid, great vessels, and vertebral arteries are patent. Osseous Structures: Slight pectus excavatum deformity is seen at the xiphoid process. 9 mm mucosal re tention cyst versus polyp is seen within the left maxillary sinus. Remaining paranasal sinuses and ma stoid air cells are well aerated. Lungs: Linear scarlike opacity at the left lung base, possibly chronic atelectasis has increased in t he interim. Mediastinum: There is a trace pericardial effusion. Prominent subcarinal lymph node measures 9 mm in short axis. No enlarged lymph nodes are seen within the mediastinum. No axillary adenopathy. No cardi omegaly. Other: Minimal multilevel degenerative changes of the thoracic spine are noted. There is new intrahep atic biliary ductal dilatation, mild and diffuse. There is a focal arterially enhancing mass within the left breast at approximately the 3:00 position on series 6 image 30 for which mammography and targeted ultrasound are recommended. Fluid attenuated left renal lesion and other right renal 2 small to accurately characterize lesions a re seen. There is pancreatic ductal enlargement as the pancreatic duct measures 3.6 mm in the pancrea tic body. IMPRESSION: 1. No adenopathy. Inspissated probable secretions within the vallecula and along the true vocal cords . 2. Arterial enhancing 5 mm left breast mass for which mammography and targeted ultrasound are recomme nded. 3. New intrahepatic biliary ductal dilatation and main pancreatic ductal dilatation. Therefore MRCP w ith and without contrast is recommended to evaluate for stone, stricture, or pancreatic mass. 4. Enlarging linear left lower lobe airspace disease, likely atelectasis although given the short-ter m interval enlargement surveillance is recommended with CT thorax in 3 months. A Yellow level critical message alert has been initiated for Keo Kohli MD via the [employer] on 04/10/2018 9:55 AM. This message alert has been sent to Keo Kohli MD via t he preferences provided by the clinician for the receipt of Radiology Critical Findings. Message ID [id number].
== END ==
LOC: RADCTMAIN 08:15
PROVIDERS: ATTEND Internal Medicine Hematology & Oncology
DX: J98.4 Other disorders of lung (principal); Z88.8 Allergy status to other drugs, medicaments and biological substances
CPT/HCPCS: 70491; 71260; Q9967

== ENCOUNTER 2018-05-02 12:01 | Inpatient (IN) | payer OTHER ==
[2018-05-02] MEDS ORDERED: MORPHINE SULFATE 2 MG/ML SYRINGE IVP STA (13:57)
[2018-05-02] MEDS ORDERED: ONDANSETRON 4 MG/2 ML VIAL IVP STA ×2 (13:58→15:03)
[2018-05-02] MEDS ORDERED: SODIUM CHLORIDE 0.9% 1,000 ML IV ONE (14:14)
[2018-05-02 14:17] LABS: Basophils % (A) 0 %; Eosinophils # (A) 0.1 k/uL (0-0.7); Eosinophils % (A) 1 %; HCT 50.3 % (34.0-46.0); HGB 16.3 gm/dL (11.4-16.0); Lymphocytes # (A) 1.2 k/uL (1.0-4.8); Lymphocytes % (A) 13 %; MCH 30.9 pg (25.0-35.0); MCHC 32.3 g/dL (31.0-37.0); MCV 95.6 fL (80.0-100.0); Mean Platelet Volume 7.1; Monocytes # (A) 0.5 k/uL (0-1.0); Monocytes % (A) 5 %; Neutrophils # (A) 7.9 k/uL (1.3-7.7); Neutrophils % (A) 80 %; Platelet Count 263 k/uL (150-450); RBC 5.26 m/uL (3.80-5.40); RDW 13.2 % (11.5-15.5); WBC 9.8 k/uL (3.8-10.6)
[2018-05-02 14:25] LABS: Potassium 4.1 mmol/L (3.5-5.1)
[2018-05-02 14:28] LABS: ALT 14 U/L (9-52); AST 17 U/L (14-36); Alkaline Phosphatase 81 U/L (38-126); Anion Gap 15 mmol/L; Appearance,Urine Cloudy (Clear); Bilirubin,Urine Negative (Negative); Blood Urea Nitrogen 18 mg/dL (7-17); Blood,Urine Moderate (Negative); Calcium 10.6 mg/dL (8.4-10.2); Carbon Dioxide 19 mmol/L (22-30); Chloride 108 mmol/L (98-107); Color,Urine Yellow; Glucose 87 mg/dL (74-99); Glucose,Urine (UA) Negative (Negative); Ketones,Urine 4+ (Negative); Leukocyte Esterase,Urine Trace (Negative); Mucus,Urine Many /hpf; Nitrite,Urine Negative (Negative); Protein,Urine 1+ (Negative); RBC,Urine 12 /hpf (0-5); Sodium 142 mmol/L (137-145); Specific Gravity,Urine 1.023 (1.001-1.035); Squamous Epithelial Cell,Urine 18 /hpf (0-4); Total Bilirubin 0.9 mg/dL (0.2-1.3); Total Protein 8.3 g/dL (6.3-8.2); WBC,Urine 4 /hpf (0-5)
[2018-05-02 14:59] LABS: Amylase 71 U/L (30-110); Lipase 191 U/L (23-300)
[2018-05-02] MEDS ORDERED: diphenhydrAMINE 50 MG CAP PO STA (15:03)
[2018-05-02] MEDS ORDERED: HYDROmorphone 1 MG/ML 1 ML SYRINGE IVP STA ×2 (15:04→16:38)
--- NOTE | 2018-05-02 16:33 | US ---
EXAMINATION TYPE: US abdomen limited DATE OF EXAM: 05/02/2018 COMPARISON: CT dated 02/26/2018, prior ultrasound 08/13/2016 CLINICAL HISTORY: pancreas/GB. pancreatitis , vomiting. EXAM MEASUREMENTS: Liver Length: 11.3 cm Gallbladder Wall: Surgically absent CBD: 0.2 cm Right Kidney: 9.2 x 3.7 x 4.2 cm Pancreas: visualized portions wnl Liver: wnl Gallbladder: Surgically absent CBD: wnl Right Kidney: small cyst measures 1.0 x 0.7 x 0.9 cm. Cortical medullary differentiation is maintained within the right kidney. IMPRESSION: No acute abnormality. Postop change.
[2018-05-02] MEDS ORDERED: NALOXONE 0.4 MG/ML 1 ML VIAL IV PRN (17:32)
[2018-05-02] MEDS ORDERED: MORPHINE SULFATE 4 MG/ML SYRINGE IV PRN (17:32)
[2018-05-02] MEDS ORDERED: ONDANSETRON 4 MG/2 ML VIAL IVP PRN (17:32)
--- NOTE | 2018-05-02 17:36 | ED ---
Abdominal Pain HPI - General Chief Complaint: Abdominal Pain Stated Complaint: abd pain Time Seen by Provider: 05/02/18 13:35 Source: patient Mode of arrival: ambulatory Limitations: no limitations - History of Present Illness Initial Comments: 42-year-old female with history of recurrent pancreatitis, Crohn's disease, anemia, diverticulitis presenting today for chief complaint of epigastric pain, nausea and vomiting. Patient states that she has experiencing another episode of pancreatitis. She states is identical to when she was treated for pancreatitis last month. Patient states that she has been following her air plant engineer outpatient as well as Dr. Kohli for adenopathy evaluation. CT was recently obtained of the chest neck that revealed new intrahepatic biliary ductal dilation and main pancreactic ductal dilation. MRCP was recommended, patient was scheduled that you have evaluation further with air plant engineer Dr. Gill on May 17 for follow-up. However today patient had uncontrolled episodes of nausea and vomiting with excruciating epigastric pain radiating to the back and presented for evaluation. Upon arrival patient's vital signs stable, patient instructed heaving. Patient denies any recent melena, hematochezia, hematemesis, night sweats, fever, chills , shortness of breath, chest pain, lower abdominal pain, numbness or tingling, dysuria or hematuria, constipation or diarrhea, headaches or visual changes, or any other complaints. - Related Data Home Medications Medication Instructions Recorded Confirmed Alendronate Sodium [Fosamax] 70 mg PO MO 06/07/16 05/02/18 SUMAtriptan SUCCINATE [Imitrex] 100 mg PO DAILY PRN 06/07/16 05/02/18 Omeprazole 20 mg PO DAILY 08/05/16 05/02/18 Ondansetron [Zofran ODT] 8 mg PO TID PRN 08/18/16 05/02/18 Lipase/Protease/Amylase [Thor Ambrocio 3 cap PO AC-TID 09/14/16 05/02/18 24,000 Units Capsule] Loratadine 10 mg PO DAILY 09/14/16 05/02/18 Montelukast Sodium [Singulair] 10 mg PO HS 09/14/16 05/02/18 Morphine Sulfate ER [Ms Contin] 30 mg PO Q8H 09/14/16 05/02/18 Morphine Sulfate Ir [MSIR] 15 mg PO BID PRN 09/14/16 05/02/18 Adalimumab [Humira Pen] 40 mg SQ [id number] 12/25/16 05/02/18 Allergies Allergy/AdvReac Type Severity Reaction Status Date / Time metoclopramide [From Reglan] AdvReac Intermediate Twitching Verified 05/02/18 13 :40 Review of Systems ROS Statement: Those systems with pertinent positive or pertinent negative responses have been documented in the HPI. ROS Other: All systems not noted in ROS Statement are negative. Constitutional: Denies: fever, chills, night sweats ENT: Denies: ear pain, throat pain Respiratory: Denies: cough, dyspnea, wheezes, hemoptysis, stridor Cardiovascular: Denies: chest pain, palpitations, dyspnea on exertion Endocrine: Denies: fatigue Gastrointestinal: Reports: abdominal pain, nausea, vomiting. Denies: diarrhea, constipation, hematemesis, melena, hematochezia Genitourinary: Denies: urgency, dysuria, frequency, hematuria Musculoskeletal: Reports: back pain (Abdominal pain radiating to mid back) Skin: Denies: rash, lesions Neurological: Denies: headache, weakness, numbness, paresthesias, confusion, abnormal gait, vertigo Past Medical History Past Medical History: Eye Disorder, GERD/Reflux, GI Bleed, Neurologic Disorder, Osteoarthritis (OA), Rheumatoid Arthritis (RA) Additional Past Medical History / Comment(s): Chronic pancreatitis, Crohn's disease, chronic esophagitis, blood in stool, diverticulosis, hx ulcers, frequent UTI'S, hx blood clots in bilateral arms pt states d/t picc lines, hx anemia with numerous transfusions, hx kidney failure from dehydration 12 yrs ago , neuropathy, cataracts. History of Any Multi-Drug Resistant Organisms: None Reported Past Surgical History: Cholecystectomy Additional Past Surgical History / Comment(s): colonsocopies, EGDs Past Anesthesia/Blood Transfusion Reactions: No Reported Reaction Additional Past Anesthesia/Blood Transfusion Reaction / Comment(s): Has had about 13 blood transfusions. Past Psychological History: No Psychological Hx Reported Smoking Status: Never smoker Past Alcohol Use History: None Reported Past Drug Use History: None Reported - Past Family History Father Family Medical History: Myocardial Infarction ([place]) Additional Family Medical History / Comment(s): Father had drug abuse problem. He of a [place] at the age of 61 yrs. Mother Family Medical History: Hypertension Additional Family Medical History / Comment(s): Mother is living. General Exam - General Exam Comments Initial Comments: General: The patient is awake and alert, in no distress, and does not appear acutely ill. Eye: Pupils are equal, round and reactive to light, extra-ocular movements are intact. No nystagmus. There is normal conjunctiva bilaterally. No signs of icterus. Ears, nose, mouth and throat: There are moist mucous membranes and no oral lesions. Neck: The neck is supple, there is no tenderness or JVD. Cardiovascular: There is a regular rate and rhythm. No murmur, rub or gallop is appreciated. Respiratory: Lungs are clear to auscultation, respirations are non-labored, breath sounds are equal. No wheezes, stridor, rales, or rhonchi. Gastrointestinal: No noted diaphoresis, jaundice, pallor. Pt appears uncomfortable/thin body structure Symmetrical pigmentation of abdomen without signs of inflammation, or striae. Umbilicus mildline, inverted without swelling. No dilated veins. Abdomen contour schaphoid no noted abdominal distention. No visible masses. No peristalsis, aortic pulsations, or ventral hernia. Bowel sounds audible in all 4 quadrants, unremarkable. No friction rubs or venous hums. No epigastic, hepatic or abdominal bruits. Tender to deep and light palpation of the epigastric region. Liver edge, not palpable. Spleen edge, right and left kidney not palpable. Superior bladder margin non-tender. Special Testing: Negative [place], [place]ov[place], McBurney, Altaf, cutaneous hyperesthesia. Iliopsoas and obturator tests negative bilaterally. Negative Heel Jar test. No CVA tenderness. Digital rectal exam deferred. Negative jeffers turners or cullens sign Musculoskeletal: Normal ROM, no tenderness. Strength 5/5. Sensation intact. Radial pulses equal bilaterally 2+. Neurological: A&O x 3. CN II-XII intact, There are no obvious motor or sensory deficits. Coordination appears grossly intact. Speech is normal. Skin: Skin is warm and dry and no rashes or lesions are noted. Psychiatric: Cooperative, appropriate mood & affect, normal judgment. Limitations: no limitations Course Vital Signs 05/02/18 05/02/18 05/02/18 12:03 15:00 17:40 Temperature 99.0 F Pulse Rate 94 57 L 52 L Respiratory 20 16 18 Rate Blood Pressure 105/73 121/87 125/86 O2 Sat by Pulse 100 100 100 Oximetry 05/02/18 05/02/18 05/02/18 18:00 18:30 19:00 Temperature Pulse Rate Respiratory Rate Blood Pressure 125/86 137/82 125/75 O2 Sat by Pulse 97 99 97 Oximetry 05/02/18 05/02/18 19:30 19:48 Temperature 98.5 F Pulse Rate Respiratory Rate Blood Pressure 116/72 O2 Sat by Pulse 96 Oximetry Medical Decision Making - Medical Decision Making 42-year-old female with chronic pancreatitis presented for epigastric pain, nausea or vomiting stating symptoms identical to chronic pancreatitis symptoms. Upon arrival patient's vital signs stable. Patient afebrile. Hemoglobin stable, glucose 87. AST ALT within normal limits. Lipase 191, amylase 71. UA was not a clean catch as noted above. PE findings concerning for pancreatitis, patient states that symptoms are identical to when she has had pancreatitis in the past, there are no other areas of tenderness upon abdominal exam, no signs of peritoneal irritation. Recent CT was obtained on April 10 which revealed intrahepatic ductal dilatation as well as pancreatic duct dilatation, patient currently has scheduled appointment at your them on May 17 for evaluation by gastroentrology. US obtained today no noted acute findings. During patient's stay she is not able to tolerate by mouth intake, experienced multiple episodes of nausea and vomiting. No hematemesis noted. Patient was given 1 L bolus, and required nothing by mouth. Patient was given morphine and Dilaudid for pain management as well as Zofran for nausea. Patient has previous reaction to Reglan in the past, dystonic reaction. Case is discussed with Dr. Banda who preferred transfer to [facility] for escalation of care/evaluation however transfer was denied-not currently accepting non established patients. Pt will be admitted for uncontrolled pain,N/V. Case discussed in detail with Dr. Alatorre who reviewed all laboratory findings, imaging studies. We decided to admit patient for treatment of pain, N/V. Niraj accepted admission with Dr. Nagy consult for gastroentrology. Pt on maintenance fluid, hemodynamically stable. Zofran and pain mgmt PRN. Pt was transferred to the floor in stable conidtion. - Lab Data Result diagrams: 05/02/18 13:24 05/02/18 13:24 Lab Results 05/02/18 05/02/18 05/02/18 Range/Units 13:24 13:24 13:24 WBC 9.8 (3.8-10.6) k/uL RBC 5.26 (3.80-5.40) m/uL Hgb 16.3 H (11.4-16.0) gm/dL Hct 50.3 H (34.0-46.0) % MCV 95.6 (80.0-100.0) fL MCH 30.9 (25.0-35.0) pg MCHC 32.3 (31.0-37.0) g/dL RDW 13.2 (11.5-15.5) % Plt Count 263 (150-450) k/uL Neutrophils % 80 % Lymphocytes % 13 % Monocytes % 5 % Eosinophils % 1 % Basophils % 0 % Neutrophils # 7.9 H (1.3-7.7) k/uL Lymphocytes # 1.2 (1.0-4.8) k/uL Monocytes # 0.5 (0-1.0) k/uL Eosinophils # 0.1 (0-0.7) k/uL Basophils # 0.0 (0-0.2) k/uL Sodium 142 (137-145) mmol/L Potassium 4.1 (3.5-5.1) mmol/L Chloride 108 H (98-107) mmol/L Carbon Dioxide 19 L (22-30) mmol/L Anion Gap 15 mmol/L BUN 18 H (7-17) mg/dL Creatinine 0.68 (0.52-1.04) mg/dL Est GFR (CKD-EPI)AfAm >90 (>60 ml/min/1.73 sqM) Est GFR (CKD-EPI)NonAf >90 (>60 ml/min/1.73 sqM) Glucose 87 (74-99) mg/dL Calcium 10.6 H (8.4-10.2) mg/dL Total Bilirubin 0.9 (0.2-1.3) mg/dL AST 17 (14-36) U/L ALT 14 (9-52) U/L Alkaline Phosphatase 81 (38-126) U/L Total Protein 8.3 H (6.3-8.2) g/dL Albumin 5.0 (3.5-5.0) g/dL Amylase (30-110) U/L Lipase (23-300) U/L Urine Color Urine Appearance (Clear) Urine pH (5.0-8.0) Ur Specific [place] (1.001-1.035) Urine Protein (Negative) Urine Glucose (UA) (Negative) Urine Ketones (Negative) Urine Blood (Negative) Urine Nitrite (Negative) Urine Bilirubin (Negative) Urine Urobilinogen (<2.0) mg/dL Ur Leukocyte Esterase (Negative) Urine RBC (0-5) /hpf Urine WBC (0-5) /hpf Ur Squamous Epith Cells (0-4) /hpf Urine Mucus (None) /hpf Urine HCG, Qual Not Detected (Not Detectd) 05/02/18 05/02/18 Range/Units 13:24 13:24 WBC (3.8-10.6) k/uL RBC (3.80-5.40) m/uL Hgb (11.4-16.0) gm/dL Hct (34.0-46.0) % MCV (80.0-100.0) fL MCH (25.0-35.0) pg MCHC (31.0-37.0) g/dL RDW (11.5-15.5) % Plt Count (150-450) k/uL Neutrophils % % Lymphocytes % % Monocytes % % Eosinophils % % Basophils % % Neutrophils # (1.3-7.7) k/uL Lymphocytes # (1.0-4.8) k/uL Monocytes # (0-1.0) k/uL Eosinophils # (0-0.7) k/uL Basophils # (0-0.2) k/uL Sodium (137-145) mmol/L Potassium (3.5-5.1) mmol/L Chloride (98-107) mmol/L Carbon Dioxide (22-30) mmol/L Anion Gap mmol/L BUN (7-17) mg/dL Creatinine (0.52-1.04) mg/dL Est GFR (CKD-EPI)AfAm (>60 ml/min/1.73 sqM) Est GFR (CKD-EPI)NonAf (>60 ml/min/1.73 sqM) Glucose (74-99) mg/dL Calcium (8.4-10.2) mg/dL Total Bilirubin (0.2-1.3) mg/dL AST (14-36) U/L ALT (9-52) U/L Alkaline Phosphatase (38-126) U/L Total Protein (6.3-8.2) g/dL Albumin (3.5-5.0) g/dL Amylase 71 (30-110) U/L Lipase 191 (23-300) U/L Urine Color Yellow Urine Appearance Cloudy H (Clear) Urine pH 6.0 (5.0-8.0) Ur Specific [place] 1.023 (1.001-1.035) Urine Protein 1+ H (Negative) Urine Glucose (UA) Negative (Negative) Urine Ketones 4+ H (Negative) Urine Blood Moderate H (Negative) Urine Nitrite Negative (Negative) Urine Bilirubin Negative (Negative) Urine Urobilinogen 2.0 (<2.0) mg/dL Ur Leukocyte Esterase Trace H (Negative) Urine RBC 12 H (0-5) /hpf Urine WBC 4 (0-5) /hpf Ur Squamous Epith Cells 18 H (0-4) /hpf Urine Mucus Many H (None) /hpf Urine HCG, Qual (Not Detectd) Disposition Clinical Impression: Nausea & vomiting, Uncontrolled pain, Chronic pancreatitis Disposition: ADMITTED IP TO THIS [facility] Condition: Stable Is patient prescribed a controlled substance at d/c from ED?: No Time of Disposition: 17:37 Decision to Admit Reason: Admit from EC Decision Date: 05/02/18 Decision Time: 17:37
[2018-05-02] MEDS ORDERED: HYDROmorphone 1 MG/ML 1 ML SYRINGE IVP PRN ×3 (20:29→21:33)
[2018-05-02] MEDS: SODIUM CHLORIDE 0.9% 1,000 ML IV SCH (20:59)
[2018-05-02] MEDS ORDERED: SCOPOLAMINE 1.5MG/72HR PATCH TRANSDERM ONE (21:00)
[2018-05-02] MEDS ORDERED: SUMAtriptan SUCCINATE 50 MG TAB PO PRN (21:24)
--- NOTE | 2018-05-02 22:01 | HP ---
HISTORY AND PHYSICAL DATE OF ADMISSION: May 02, 2018 DATE OF SERVICE: May 02, 2018. PRESENTING COMPLAINT: Abdominal pain. HISTORY OF PRESENTING COMPLAINT: This is a pleasant 42-year-old patient who follows with Dr. Nagy from Gastroenterology and Dr. Dobbins her family doctor. Chronic stable medical conditions include osteoarthritis, rheumatoid arthritis, chronic pancreatitis, colonic diverticulosis and peripheral neuropathy. The patient is also on chronic pain medications and Humira. The patient in the past, had a colonoscopy by Dr. Nagy, was found to have nonspecific colitis and esophagitis. The patient is due to go down to [facility], has appointment in a couple of weeks time. Patient has had multiple episodes for abdominal pain. The patient did present yesterday with increasing epigastric pain that started yesterday with nausea, vomiting, not able to keep anything down. No fever. No chills. No respiratory symptoms. No urinary symptoms. Admitted for the same. The patient recently underwent a neck and chest CT by Dr. Kohli. The patient is found to have a 5 mm left breast mass and also was found to have some new intrahepatic biliary ductal dilatation and main pancreatic ductal dilatation. REVIEW OF SYSTEMS: CONSTITUTIONAL: Tired. HEENT: None. RESPIRATORY: None. GASTROINTESTINAL as above. GENITOURINARY: None. MUSCULOSKELETAL: Pain in different joints. DERMATOLOGICAL: None. HEMATOLOGICAL: None. LYMPHATICS: None. PSYCHIATRY: Some anxiety. NEUROLOGICAL: Numbness and tingling in hands and feet. PAST MEDICAL HISTORY: Questionable Crohn's disease, chronic nonspecific colitis, type unknown; rheumatoid arthritis, chronic pancreatitis, protein-calorie malnutrition, chronic pain syndrome, esophagitis. PAST SURGICAL HISTORY: Cholecystectomy. SOCIAL HISTORY: No smoking. No alcohol. Occasionally does marijuana. FAMILY HISTORY: Hypertension. HOME MEDICATIONS: 1. Imitrex 100 mg daily p.r.n. 2. Zofran 8 mg t.i.d. p.r.n. 3. Omeprazole 20 mg p.o. daily. 4. Morphine sulfate immediate release 50 mg b.i.d. p.r.n. 5. MS Contin 30 mg p.o. q.8. 6. Singulair 10 mg p.o. q.h.s. 7. Claritin 10 mg p.o. daily. 8. Creon 50112 units 3 capsules p.o. a.c. t.i.d. 9. Fosamax 70 mg p.o. on Mondays. 10.Humira Pen 40 mg subcu Q 14 days. ALLERGIES: REGLAN. PHYSICAL EXAMINATION: VITAL SIGNS: Temperature 99, pulse 94, respiratory 20, blood pressure 105/73, pulse ox 100 percent on room air. GENERAL APPEARANCE: Thin built, BMI 17.7; lying in bed, uncomfortable appearing. EYES: Pupils equal. Conjunctivae normal. HEENT: External appearance of nose and ears normal. Oral cavity dry. NECK: JVD not raised. Mass not palpable. RESPIRATORY: Effort normal. LUNGS: Fair air entry. CARDIOVASCULAR: 1st and 2nd sounds normal. No edema. ABDOMEN: Soft. Mid abdominal tenderness. No guarding or rigidity. Liver and spleen not palpable. LYMPHATICS: No lymph nodes palpable in the neck and axilla. PSYCHIATRY: Alert and oriented x3. Mood and affect anxious-appearing. NEUROLOGICAL: Pupils equal. Cranial nerves grossly intact. Power and sensation grossly intact musculoskeletal diffuse wasting of the muscles. INVESTIGATIONS: White count 9.8, hemoglobin 16.3, potassium 4.1, BUN 18, creatinine 0.68. Amylase lipase is normal. Urine ketone 4+. Abdominal ultrasound nonspecific. ASSESSMENT: 1. Acute on chronic abdominal pain the differential is large, but the patient's workup has been negative. Patient does have known chronic pancreatitis and pancreatic enzymes are probably not elevated if it is burnt out, but at the same time, the patient's sugars are not high. 2. Chronic esophagitis. 3. Nonspecific colitis. 4. Moderate protein-calorie malnutrition from decreased oral intake. 5. Chronic rheumatoid arthritis. 6. Intrahepatic and pancreatic duct dilatation for further workup at [facility]. PLAN: At this point patient given IV fluids, pain medications, in the form of IV pain medications and antiemetics. Gastroenterology is consulted. We will put the patient on a clear liquid diet, see how she does. Copy to Dr. Dobbins. MMODL / IJN: [id number] /
[2018-05-02] MEDS: HYDROmorphone 1 MG/ML 1 ML SYRINGE IVP PRN (23:59)
[2018-05-03] MEDS: HYDROmorphone 1 MG/ML 1 ML SYRINGE IVP PRN ×7 (03:01→21:06)
[2018-05-03] MEDS: SODIUM CHLORIDE 0.9% 1,000 ML IV SCH ×3 (06:03→21:17)
[2018-05-03] MEDS: LIPASE 5,000/PROTEASE 17,000/AMYLASE 24,000 PO SCH ×3 (07:02→17:52)
[2018-05-03] MEDS: LORATADINE 10 MG TAB PO SCH (09:04)
[2018-05-03] MEDS: ENOXAPARIN 40 MG/0.4 ML SYRINGE SQ SCH (09:04)
--- NOTE | 2018-05-03 11:15 | P.CONS ---
History of Present Illness - Reason for Consult Consult date: 05/03/18 Abdominal pain Requesting physician: Fabian Healy - Chief Complaint Abdominal pain - History of Present Illness 42-year-old female well known to Dr. Nagy's practice with a past medical history of cholecystectomy, Crohn's disease, chronic pancreatitis, rheumatoid arthritis maintained on Humira, chronic pain syndrome, GERD. Patient admitted with chronic epigastric abdominal pain nausea vomiting. Patient is an extensive endoscopic and serologic workup over the last few years with no evidence of active Crohn's disease. She has been advised recently to seek a tertiary care opinion regarding her chronic abdominal pain including endoscopic ultrasound. She presently has a appointment at [facility] next month for evaluation of her chronic pain. She has been experiencing some intermittent lymphadenopathy and had a recent CT of the chest and neck on 2017 that showed an arterial enhancing 5 mm left breast mass with new intrahepatic bili duct dilatation and swelling is pancreatic ductal dilatation. Mammogram is scheduled May 12. Multiple abdominal CT abdominal imaging this past year reported no abnormalities. Pancreatic, liver enzymes within normal limits. White count 9.8. Hemoglobin 16.3. Platelet 263. BUN 18. Creatinine 0.6. Urinalysis cloudy moderate blood trace leukocyte esterase. HCG not detected. Denies fever or chills hematemesis T0 melena. Intermittent loose bowel movements. No rapid weight loss weight has been maintained between 42-45 kg over the last several months. Review of Systems Constitutional: Denies fever, chills, sweats, weight gain, or loss. HEENT: Negative for migraines, blurred vision or loss, earaches, drainage, tinnitus, oral mucosal lesions, dysphagia, or odynophagia. CARDIAC: Negative for chest pain, arrhythmias, or palpitation. RESPIRATORY: Negative for shortness of breath, hemoptysis, cough, or sputum production. GI: See HPI for pertinent findings. : Negative for hematuria, urgency, frequency, polyuria, or dysuria. GYNc: Denies possibility of . Negative vaginal discharge. MUSCULOSKELETAL: Negative for muscle aches, swelling, arthritis, and arthralgias. NEUROLOGIC: Negative for stroke or TIA. ENDOCRINE: Negative for thyroid problems. SKIN: Negative for rash or itching. PSYCHIATRIC: Negative history for depression and anxietymale Past Medical History Past Medical History: Eye Disorder, GERD/Reflux, GI Bleed, Neurologic Disorder, Osteoarthritis (OA), Rheumatoid Arthritis (RA) Additional Past Medical History / Comment(s): Chronic pancreatitis, Crohn's disease, chronic esophagitis, blood in stool, diverticulosis, hx ulcers, frequent UTI'S, hx blood clots in bilateral arms pt states d/t picc lines, hx anemia with numerous transfusions, hx kidney failure from dehydration 12 yrs ago , neuropathy, cataracts. History of Any Multi-Drug Resistant Organisms: None Reported Past Surgical History: Cholecystectomy Additional Past Surgical History / Comment(s): colonsocopies, EGDs Past Anesthesia/Blood Transfusion Reactions: No Reported Reaction Additional Past Anesthesia/Blood Transfusion Reaction / Comm: Has had about 13 blood transfusions. Past Psychological History: No Psychological Hx Reported Smoking Status: Never smoker Past Alcohol Use History: None Reported Past Drug Use History: None Reported - Past Family History Father Family Medical History: Myocardial Infarction (AR) Additional Family Medical History / Comment(s): Father had drug abuse problem. He of a AR at the age of 61 yrs. Mother Family Medical History: Hypertension Additional Family Medical History / Comment(s): Mother is living. Medications and Allergies Home Medications Medication Instructions Recorded Confirmed Type Alendronate Sodium [Fosamax] 70 mg PO MO 06/07/16 05/02/18 History SUMAtriptan SUCCINATE [Imitrex] 100 mg PO DAILY PRN 06/07/16 05/02/18 History Omeprazole 20 mg PO DAILY 08/05/16 05/02/18 History Ondansetron [Zofran ODT] 8 mg PO TID PRN 08/18/16 05/02/18 History Lipase/Protease/Amylase [Thor Dr 3 cap PO AC-TID 09/14/16 05/02/18 History 24,000 Units Capsule] Loratadine 10 mg PO DAILY 09/14/16 05/02/18 History Montelukast Sodium [Singulair] 10 mg PO HS 09/14/16 05/02/18 History Morphine Sulfate ER [Ms Contin] 30 mg PO Q8H 09/14/16 05/02/18 History Morphine Sulfate Ir [MSIR] 15 mg PO BID PRN 09/14/16 05/02/18 History Adalimumab [Humira Pen] 40 mg SQ [id number] 12/25/16 05/02/18 History Allergies Allergy/AdvReac Type Severity Reaction Status Date / Time metoclopramide [From Reglan] AdvReac Intermediate Twitching Verified 05/02/18 13 :40 Physical Exam Vitals: Vital Signs Temp Pulse Pulse Resp BP BP Pulse Ox 05/03/18 07:55 98.1 F 49 L 16 96/55 99 05/03/18 00:06 98.3 F 54 L 16 107/69 98 05/02/18 20:09 97.7 F 52 L 18 128/59 100 05/02/18 19:48 98.5 F 05/02/18 19:30 116/72 96 05/02/18 19:00 125/75 97 05/02/18 18:30 137/82 99 05/02/18 18:00 125/86 97 05/02/18 17:40 52 L 18 125/86 100 05/02/18 15:00 57 L 16 121/87 100 05/02/18 12:03 99.0 F 94 20 105/73 100 Intake and Output 05/02/18 05/03/18 05/03/18 22:59 06:59 14:59 Output Total 100 50 75 Balance -100 -50 -75 Output: Emesis 100 50 75 Other: # Voids 1 # Emeses 1 General appearance: The patient is alert, oriented, in no acute distress. HET: Head is normocephalic and atraumatic. Pupils are equal and reactive. Oropharynx is clear without lesions. Neck: Supple without lymphadenopathy. Trachea midline. Heart: S1 S2. Regular rate and rhythm. Lungs: No crackles or wheezes are heard. Abdomen: Soft, mild epigastric tenderness, nondistended with bowel sounds. No peritoneal signs. No palpable organomegaly or masses. Extremities: Normal skin color and turgor. No cyanosis, rash, ulceration, clubbing, or edema. Radial and pedal pulses are 2/4 bilaterally. Neurological: No focal deficits. Strength and sensation are grossly intact. Results CBC & Chem 7: 05/02/18 13:24 05/02/18 13:24 Labs: Abnormal Lab Results - Last 24 Hours (Table) 05/02/18 05/02/18 05/02/18 Range/Units 13:24 13:24 13:24 Hgb 16.3 H (11.4-16.0) gm/dL Hct 50.3 H (34.0-46.0) % Neutrophils # 7.9 H (1.3-7.7) k/uL Chloride 108 H (98-107) mmol/L Carbon Dioxide 19 L (22-30) mmol/L BUN 18 H (7-17) mg/dL Calcium 10.6 H (8.4-10.2) mg/dL Total Protein 8.3 H (6.3-8.2) g/dL Urine Appearance Cloudy H (Clear) Urine Protein 1+ H (Negative) Urine Ketones 4+ H (Negative) Urine Blood Moderate H (Negative) Ur Leukocyte Esterase Trace H (Negative) Urine RBC 12 H (0-5) /hpf Ur Squamous Epith Cells 18 H (0-4) /hpf Urine Mucus Many H (None) /hpf Comments: CT neck chest March [address] Rosales Assessment and Plan (1) Abdominal pain Narrative/Plan: History of Crohn's and pancreatitis chronic nausea vomiting diarrhea abdominal pain. New development of pancreatic biliary duct dilation per CT with normal pancreatic liver enzymes. Current Visit: No Status: Acute Code(s): R10.9 - UNSPECIFIED ABDOMINAL PAIN SNOMED Code(s): 63191291 (2) Nausea & vomiting Current Visit: Yes Status: Acute Code(s): R11.2 - NAUSEA WITH VOMITING, UNSPECIFIED SNOMED Code(s): 97817469 (3) Left breast mass Current Visit: Yes Status: Acute Code(s): N63.20 - UNSPECIFIED LUMP IN THE LEFT BREAST, UNSPECIFIED QUADRANT SNOMED Code(s): 51110215 (4) History of Crohn's disease Current Visit: Yes Status: Acute Code(s): Z87.19 - PERSONAL HISTORY OF OTHER DISEASES OF THE DIGESTIVE SYSTEM SNOMED Code(s): 412586399675529 (5) History of pancreatitis Current Visit: Yes Status: Acute Code(s): Z87.19 - PERSONAL HISTORY OF OTHER DISEASES OF THE DIGESTIVE SYSTEM SNOMED Code(s): 32774538554489 Plan: 1. MRCP/MRI pancreas to further evaluate findings seen on CT of the chest and neck. Patient states she has a mammogram scheduled May 12 an appointment at [facility] next month. 2. Case discussed with attending; oncology and general surgery consulted. 3. Will obtain CA-19-9 marker. Will check to see if celiac testing has been done in the past. We'll follow closely with you. Protonix 40 mg daily. Continue pancreatic enzyme supplementation. Liquid diet advance as tolerated. Thank you for this kind referral and the opportunity to participate in the care of your patient. This consultation was discussed with Dr. Rosales. The impression and plan of care have been directed as dictated.
[2018-05-03] MEDS: PANTOPRAZOLE 40 MG/10 ML VIAL IVP SCH (12:06)
--- NOTE | 2018-05-03 14:41 | MR ---
EXAMINATION TYPE: MR pancreas / mrcp wo/w con DATE OF EXAM: 05/03/2018 COMPARISON: CT abdomen and pelvis January 01, 2018. Limited abdominal ultrasound May 02, 2018 HISTORY: chronic abdominal pain hx pancreatitis r/o mass CONTRAST: Standard multiplanar, multisequence MRI departmental protocol utilizing 4.5 mL intravenous Gadavist g adolinium contrast. Thin and thick slice MRCP imaging is created on MRI scanner. FINDINGS: LIVER/GB/PANCREAS/BILIARY SYSTEM: Liver size is stable and upper limits of normal. No suspicious michelle d or cystic intrahepatic mass is identified. Gallbladder is surgically absent. There is no suspicious new intrahepatic or extrahepatic biliary dilatation. Common bile duct is within normal limits after cholecystectomy and not significantly changed in size or appearance from prior CT. Pancreas remains normal in size without surrounding fluid collection or inflammatory change. Pancreat ic duct is visualized but measures upper limits of normal. No significant change in size or appearanc e from prior CT is noted. MRCP images show some artifact but no suspicious dilatation or focal intral uminal calculus. OTHER: Subpleural right basilar tiny nodule axial image [address] axial image 5. There is posterior left basilar linear scarring or atelectasis redemonstrated. The spleen and both adrenal glands are normal in size. There are a few simple appearing cysts scatter ed throughout both kidneys. No hydronephrosis is present. There is hemangioma at L1 vertebra redemons trated with smaller hemangiomas at L3 and L4 vertebra redemonstrated. Patient has very little intra-a bdominal fat. No abdominal fluid collection is seen. No suspicious bowel dilatation is noted. IMPRESSION: No suspicious pancreatic mass or ductal dilatation. Unremarkable study. No significant change from pr ior CT or recent Limited abdominal ultrasound.
[2018-05-03 14:56] VITALS: BMI 17.6
--- NOTE | 2018-05-03 19:11 | PN ---
PROGRESS NOTE DATE OF SERVICE: 05/03/18. PRESENTING COMPLAINT: Abdominal pain. INTERVAL HISTORY: This patient with what may be chronic pancreatitis with chronic pain presented with acute abdominal pain exacerbation pending to go down to [facility] and Jordana did call me from GI this morning we thought of proceeding with MRCP while she is here. That was done this afternoon. The patient continues to have abdominal pain, some nausea is present. REVIEW OF SYSTEMS: Done for constitutional, cardiovascular, GI, pulmonary; relevant findings as above. CURRENT MEDICATIONS: Reviewed that include IV Dilaudid. PHYSICAL EXAMINATION: Temperature 98.5, pulse 53, respirations 16, blood pressure 100/62, pulse ox 99% on room air. GENERAL APPEARANCE: Lying in bed, not in distress. EYES: Pupils equal. Conjunctivae normal. HEENT: External appearance of nose and ears normal. Oral cavity normal. NECK: JVD not raised. Mass not palpable. RESPIRATORY: Effort normal. Lungs, fair entry. CARDIOVASCULAR: First and second sounds normal. No edema. ABDOMEN: Soft. Some abdominal tenderness. No guarding or rigidity. Soft. Liver and spleen not palpable. PSYCHIATRY: Alert and oriented x3. Mood and affect slightly anxious. INVESTIGATIONS: No blood work today. Pancreatic MRCP was primarily unremarkable. ASSESSMENT: 1. Acute on chronic abdominal pain, possibly underlying chronic pancreatitis. 2. Chronic esophagitis. 3. Nonspecific colitis. 4. Moderate protein-calorie malnutrition from decreased oral intake. 5. Chronic rheumatoid arthritis. 6. The patient is pending workup at [facility]. PLAN: Continue with IV fluids, IV pain medications. was ordered this morning as patient wanted more pain medications. Care was discussed with the patient. MMODL / IJN: [id number] /
[2018-05-03] MEDS: MONTELUKAST 10 MG TAB PO SCH (21:06)
[2018-05-04] MEDS: HYDROmorphone 1 MG/ML 1 ML SYRINGE IVP PRN ×6 (00:46→16:33)
[2018-05-04] MEDS: SODIUM CHLORIDE 0.9% 1,000 ML IV SCH ×2 (04:11→12:04)
[2018-05-04] MEDS: LIPASE 5,000/PROTEASE 17,000/AMYLASE 24,000 PO SCH ×3 (07:16→16:32)
[2018-05-04] MEDS: LORATADINE 10 MG TAB PO SCH (09:50)
[2018-05-04] MEDS: PANTOPRAZOLE 40 MG/10 ML VIAL IVP SCH (09:50)
[2018-05-04] MEDS: ENOXAPARIN 40 MG/0.4 ML SYRINGE SQ SCH (09:50)
--- NOTE | 2018-05-04 11:37 | P.PN ---
Subjective Progress Note Date: 05/04/18 Principal diagnosis: abdominal pain nausea vomiting MRI pancreas/MRCP performed yesterday in regards to recent CT findings of pancreatic biliary duct dilatation. MRI reported no evidence of biliary or pancreatic duct dilatation. No pancreatic mass. CA-19-9 within normal limits. Presently resting still reports loose bowel movements nonbloody. Afebrile. Intermittent abdominal discomfort. Requesting pain medication. Objective - Vital Signs Vital signs: Vital Signs Temp 98.0 F 05/04/18 08:00 Pulse 61 05/04/18 08:45 Resp 16 05/04/18 08:45 BP 97/67 05/04/18 08:00 Pulse Ox 99 05/04/18 08:00 Intake & Output 05/03/18 05/04/18 05/04/18 18:59 06:59 18:59 Output Total 75 Balance -75 Weight 45.359 kg Output: Emesis 75 Other: # Voids 1 1 # Bowel Movements 1 - Exam General appearance: The patient is alert, oriented, in no acute distress. HET: Head is normocephalic and atraumatic. Pupils are equal and reactive. Oropharynx is clear without lesions. Neck: Supple without lymphadenopathy. Trachea midline. Heart: S1 S2. Regular rate and rhythm. Lungs: No crackles or wheezes are heard. Abdomen: Soft, mild midepigastric tenderness, nondistended with bowel sounds. No peritoneal signs. No palpable organomegaly or masses. Extremities: Normal skin color and turgor. No cyanosis, rash, ulceration, clubbing, or edema. Radial and pedal pulses are 2/4 bilaterally. Neurological: No focal deficits. Strength and sensation are grossly intact. - Labs CBC & Chem 7: 05/02/18 13:24 05/02/18 13:24 Assessment and Plan (1) Abdominal pain Narrative/Plan: History of Crohn's and pancreatitis chronic nausea vomiting diarrhea abdominal pain. New development of pancreatic biliary duct dilation per CT with normal pancreatic liver enzymes. Current Visit: No Status: Acute Code(s): R10.9 - UNSPECIFIED ABDOMINAL PAIN SNOMED Code(s): 46902163 (2) Nausea & vomiting Current Visit: Yes Status: Acute Code(s): R11.2 - NAUSEA WITH VOMITING, UNSPECIFIED SNOMED Code(s): 65713246 (3) Left breast mass Current Visit: Yes Status: Acute Code(s): N63.20 - UNSPECIFIED LUMP IN THE LEFT BREAST, UNSPECIFIED QUADRANT SNOMED Code(s): 38923945 (4) History of Crohn's disease Current Visit: Yes Status: Acute Code(s): Z87.19 - PERSONAL HISTORY OF OTHER DISEASES OF THE DIGESTIVE SYSTEM SNOMED Code(s): 409447681415880 (5) History of pancreatitis Current Visit: Yes Status: Acute Code(s): Z87.19 - PERSONAL HISTORY OF OTHER DISEASES OF THE DIGESTIVE SYSTEM SNOMED Code(s): 69831733397885 Plan: 1. MRI results were discussed with patient. Would advise an outpatient EUS secondary to her chronic pain and history of pancreatitis but will defer to [facility] evaluation recommendations appointment scheduled in the next 4-6 weeks. 2. Will obtain serology for celiac testing including total IgA serology. Patient can follow up in the GI office in 3-4 weeks for reevaluation. Discharge per medicine consult staff. Assessment and plan a care discussed with Dr. Rosales
--- NOTE | 2018-05-04 11:48 | P.GSHP ---
History of Present Illness H&P Date: 05/04/18 Chief Complaint: Incidental 5 mm left breast lesion noted on computed tomography scan of the The patient is a 42-year-old white female who presents with multiple admissions over the past 5 months for midepigastric abdominal pain. Of significance is the fact the patient has had a history of Crohn's disease with probable chronic pancreatitis. She is status post cholecystectomy. She does have chronic pain and rheumatoid arthritis. She has recently been noted to have intermittent lymphadenopathy and in the workup of this a CAT scan was performed of the chest which revealed the lesion in the left breast. The patient states that recently she began vomiting and was admitted for evaluation. She has been treated with Humira. She is scheduled for GI evaluation at [facility] in the near future. The patient denies any masses in her breast. She denies any nipple discharge or changes. She denies any infection or trauma to her breast. Her last mammogram was when she was approximately 16 years of age. Family history: Maternal aunt bilateral mastectomies age 50 Hormonal history: Menarche: 12 Pregnancies: 2, 1 child she did breast-feed her child was born when she was 19 Periods have been irregular for many years and she is now having approximately 2. Some month control pills: 2 years Hormones: Negative Past surgical history: 1. Cholecystectomy 2. Multiple endoscopic procedures Past medical history: 1. Crohn's disease 2. Chronic pancreatitis 3. Osteomyelitis 4. Cataracts Social history: Smoke: Negative Alcohol: Negative Drugs: Marijuana twice a month - Constitutional Comment: Multiple prior blood transfusion secondary to anemia Constitutional: Denies chills, Denies fever - EENT Comment: cataracts Ears, nose, mouth and throat: Denies headache, Denies sore throat - Breasts Breasts: bilateral: as per HPI - Cardiovascular Comment: Questionable palpitations - Respiratory Comment: Bronchitis in the past - Gastrointestinal Gastrointestinal: Reports as per HPI - Genitourinary (Female) Comment: Irregular menstrual periods, history of UTIs in the past - Menstruation Menstruation: Reports menses variable - Musculoskeletal Comment: Osteoarthritis - Integumentary Comment: Skin changes related to steroids - Neurological Comment: Neuropathy - Psychiatric Comment: Patient has some anxiety regarding the multiple recurrent episodes of midepigastric pain - Endocrine Endocrine: Reports weight change - Hematologic/Lymphatic Comment: History of blood clots in bilateral upper extremities Hematologic/Lymphatic: Reports as per HPI - Allergic/Immunologic Allergic/Immunologic: Reports as per HPI Past Medical History Past Medical History: Eye Disorder, GERD/Reflux, GI Bleed, Neurologic Disorder, Osteoarthritis (OA), Rheumatoid Arthritis (RA) Additional Past Medical History / Comment(s): Chronic pancreatitis, Crohn's disease, chronic esophagitis, blood in stool, diverticulosis, hx ulcers, frequent UTI'S, hx blood clots in bilateral arms pt states d/t picc lines, hx anemia with numerous transfusions, hx kidney failure from dehydration 12 yrs ago , neuropathy, cataracts. History of Any Multi-Drug Resistant Organisms: None Reported Past Surgical History: Cholecystectomy Additional Past Surgical History / Comment(s): colonsocopies, EGDs Past Anesthesia/Blood Transfusion Reactions: No Reported Reaction Additional Past Anesthesia/Blood Transfusion Reaction / Comment(s): Has had about 13 blood transfusions. Past Psychological History: No Psychological Hx Reported Smoking Status: Never smoker Past Alcohol Use History: None Reported Past Drug Use History: None Reported - Past Family History Father Family Medical History: Myocardial Infarction ([place]) Additional Family Medical History / Comment(s): Father had drug abuse problem. He of a [place] at the age of 61 yrs. Mother Family Medical History: Hypertension Additional Family Medical History / Comment(s): Mother is living. Medications and Allergies Home Medications Medication Instructions Recorded Confirmed Type Alendronate Sodium [Fosamax] 70 mg PO MO 06/07/16 05/02/18 History SUMAtriptan SUCCINATE [Imitrex] 100 mg PO DAILY PRN 06/07/16 05/02/18 History Omeprazole 20 mg PO DAILY 08/05/16 05/02/18 History Ondansetron [Zofran ODT] 8 mg PO TID PRN 08/18/16 05/02/18 History Lipase/Protease/Amylase [Thor Dr 3 cap PO AC-TID 09/14/16 05/02/18 History 24,000 Units Capsule] Loratadine 10 mg PO DAILY 09/14/16 05/02/18 History Montelukast Sodium [Singulair] 10 mg PO HS 09/14/16 05/02/18 History Morphine Sulfate ER [Ms Contin] 30 mg PO Q8H 09/14/16 05/02/18 History Morphine Sulfate Ir [MSIR] 15 mg PO BID PRN 09/14/16 05/02/18 History Adalimumab [Humira Pen] 40 mg SQ [id number] 12/25/16 05/02/18 History Allergies Allergy/AdvReac Type Severity Reaction Status Date / Time metoclopramide [From Reglan] AdvReac Intermediate Twitching Verified 05/02/18 13 :40 Surgical - Exam Vital Signs Temp Pulse Resp BP Pulse Ox 99.0 F 94 20 105/73 100 05/02/18 12:03 05/02/18 12:03 05/02/18 12:03 05/02/18 12:03 05/02/18 12:03 BMI 17.7 - General thin - Eyes normal ocular movement - ENT no hearing loss, no congestion - Neck no masses, trachea midline - Respiratory normal respiratory effort, clear to auscultation - Cardiovascular Rhythm: regular Heart Sounds: normal: S1, S2 - Abdomen Scaphoid Tenderness to palpation midepigastrium No guarding or rebound - Integumentary normal turger - Neurologic no disoriented, no combative - Musculoskeletal normal gait - Psychiatric oriented to time, oriented to person, oriented to place, speech is normal, memory intact Breast examination: Right breast: Multiple positional exam dense breast with fibrocystic changes Right axilla: Shoddy adenopathy Left breast: Multiple positional exam dense breast with fibrocystic changes Left axilla: Shoddy adenopathy Results MRI report reviewed - Labs 05/02/18 13:24 05/02/18 13:24 Assessment and Plan Assessment: Impression: 1. Chronic pancreatitis 2. Crohn's disease 3. Multiple admissions for midepigastric abdominal pain 4. Intermittent shotty adenopathy 5. Computed tomography scan revealing 5 mm lesion in the left breast Plan: 1. GI/medical management of GI disease 2. Bilateral mammogram and appointment following the bilateral mammogram/ right breast ultrasound with Dr. Lenny Molina, at this time the finding appears to be incidental and is most likely unrelated to her GI symptoms, although requires workup. Cc: Dr. Healy, Dr. Cabrera
--- NOTE | 2018-05-04 17:05 | P.CONS ---
History of Present Illness - Reason for Consult Consult date: 05/04/18 known Requesting physician: Fabian Healy - Chief Complaint abd pain - History of Present Illness Mrs. Martinez is a pleasant pt of Dr. Kohli seen 03/07/18 for new adenopathy when she was admitted to [facility] with exacerbation of her Crohn's disease. She had been having abdominal pain and vomiting. CT AP did not have any major findings , felt to be r/t missed doses of Solu-Medrol. She didn't improve with treatment and she had noted tender lymph node swellings below the ears bilaterally and both sides of the neck, small and of normal consistency so, she followed-up outpatient. Pt had no history of adenopathy, malignancy or blood problems, at the time of her on 03/07/18, most of the lymph nodes had resolved. She had full work up, all of which was negative except for a 5mm left breast nodule found and mild CBD duct dilation. She is scheduled for mammogram next week. She has also been referred to [facility] for recurrent pancreatitis and for abnormal CT findings. Pt came to hospital for abd pain, worse after eating, nausea, vomiting, she had an episode of diarrhea today. Pt states the pain is similar to her previous episodes of pancreatitis. She states episodes nearly monthly, start as she advances her diet past liquids. No fevers, dysphagia, hematemesis, cough, KALANI, dysuria, hematuria, black, bloody or mucus stool, no swelling or new/unusual pain to report. Review of Systems 14 point ROS as stated in HPI Past Medical History Past Medical History: Eye Disorder, GERD/Reflux, GI Bleed, Neurologic Disorder, Osteoarthritis (OA), Rheumatoid Arthritis (RA) Additional Past Medical History / Comment(s): Chronic pancreatitis, Crohn's disease, chronic esophagitis, blood in stool, diverticulosis, hx ulcers, frequent UTI'S, hx blood clots in bilateral arms pt states d/t picc lines, hx anemia with numerous transfusions, hx kidney failure from dehydration 12 yrs ago , neuropathy, cataracts. History of Any Multi-Drug Resistant Organisms: None Reported Past Surgical History: Cholecystectomy Additional Past Surgical History / Comment(s): colonsocopies, EGDs Past Anesthesia/Blood Transfusion Reactions: No Reported Reaction Additional Past Anesthesia/Blood Transfusion Reaction / Comm: Has had about 13 blood transfusions. Past Psychological History: No Psychological Hx Reported Smoking Status: Never smoker Past Alcohol Use History: None Reported Past Drug Use History: None Reported - Past Family History Father Family Medical History: Myocardial Infarction ([place]) Additional Family Medical History / Comment(s): Father had drug abuse problem. He of a [place] at the age of 61 yrs. Mother Family Medical History: Hypertension Additional Family Medical History / Comment(s): Mother is living. Medications and Allergies Home Medications Medication Instructions Recorded Confirmed Type Alendronate Sodium [Fosamax] 70 mg PO MO 06/07/16 05/02/18 History SUMAtriptan SUCCINATE [Imitrex] 100 mg PO DAILY PRN 06/07/16 05/02/18 History Omeprazole 20 mg PO DAILY 08/05/16 05/02/18 History Ondansetron [Zofran ODT] 8 mg PO TID PRN 08/18/16 05/02/18 History Lipase/Protease/Amylase [Creon Dr 3 cap PO AC-TID 09/14/16 05/02/18 History 24,000 Units Capsule] Loratadine 10 mg PO DAILY 09/14/16 05/02/18 History Montelukast Sodium [Singulair] 10 mg PO HS 09/14/16 05/02/18 History Morphine Sulfate ER [Ms Contin] 30 mg PO Q8H 09/14/16 05/02/18 History Morphine Sulfate Ir [MSIR] 15 mg PO BID PRN 09/14/16 05/02/18 History Adalimumab [Humira Pen] 40 mg SQ [id number] 12/25/16 05/02/18 History Allergies Allergy/AdvReac Type Severity Reaction Status Date / Time metoclopramide [From Reglan] AdvReac Intermediate Twitching Verified 05/02/18 13 :40 Physical Exam Vitals: Vital Signs Temp Pulse Resp BP Pulse Ox 05/04/18 12:45 98.3 F 53 L 16 108/67 99 05/04/18 08:45 61 16 05/04/18 08:00 98.0 F 61 16 97/67 99 05/03/18 23:02 98.1 F 55 L 16 104/63 97 05/03/18 19:20 98.4 F 52 L 16 101/64 98 Intake and Output 05/04/18 05/04/18 05/04/18 06:59 14:59 22:59 Other: # Voids 2 # Bowel Movements 1 3 - Constitutional General appearance: cooperative, no acute distress, thin - EENT Eyes: anicteric sclerae, EOMI, normal appearance ENT: hearing grossly normal, normal oropharynx - Neck Neck: no lymphadenopathy - Respiratory Respiratory: bilateral: CTA - Cardiovascular Rhythm: regular Heart sounds: normal: S1, S2 Abnormal Heart Sounds: no systolic murmur, no diastolic murmur, no rub, no S3 Gallop, no S4 Gallop, no click, no other leg Peripheral Edema: bilateral: None - Gastrointestinal not rigid General gastrointestinal: normal bowel sounds, tenderness - Genitourinary no inguinal adenopathy - Integumentary Integumentary: normal - Neurologic Neurologic: CNII-XII intact - Musculoskeletal Musculoskeletal: strength equal bilaterally - Psychiatric Psychiatric: A&O x's 3, appropriate affect, intact judgment & insight Results CBC & Chem 7: 05/02/18 13:24 05/02/18 13:24 Comments: pancreas MRI report reviewed US - abdomen: report reviewed Assessment and Plan (1) Left breast mass Narrative/Plan: Pt is having mammogram next week for evaluation of 5mm mass incidentally found on a CT that was evaluating adenopathy. Dr. Mcqueen note reviewed. Pt will have mammo and then US with her. Current Visit: Yes Status: Acute Priority: High Code(s): N63.20 - UNSPECIFIED LUMP IN THE LEFT BREAST, UNSPECIFIED QUADRANT SNOMED Code(s): 67401425 (2) Adenopathy Narrative/Plan: Previous adenopathy no longer palpated. Work up in the office is negative so far. Pt will complete planned work up, further Hem/Onc recommendations to follow. Current Visit: Yes Status: Acute Priority: Low Code(s): R59.1 - GENERALIZED ENLARGED LYMPH NODES SNOMED Code(s): 55242305 Plan: No further inpatient work up from Hem/Onc F/U in [address] Kohli
[2018-05-04] MEDS ORDERED: CALCIUM CARBONATE LIQUID 500 MG/5 ML CUP PO SCH (17:30)
[2018-05-04] MEDS: MORPHINE SULFATE ER 30 MG TABLET PO SCH (20:14)
[2018-05-04] MEDS: MONTELUKAST 10 MG TAB PO SCH (20:15)
--- NOTE | 2018-05-04 20:21 | PN ---
PROGRESS NOTE DATE OF SERVICE: 05/04/2018 PRESENTING COMPLAINT: Abdominal pain. INTERVAL HISTORY: This patient presented with what may be chronic pancreatitis flareup and also with chronic abdominal pain. MRCP came back to be unremarkable with showing no dilatation. Patient is doing a bit better today. Did tolerate some popsicle. Did have some loose stool. Looking better. Has been out of bed. REVIEW OF SYSTEMS: Done for constitutional, cardiovascular, GI, pulmonary; relevant findings as above. CURRENT MEDICATIONS: Reviewed. They include IV Dilaudid. PHYSICAL EXAMINATION: Temperature 98.3, pulse 53, respiration 16, blood pressure 108/67, pulse ox 99% on room air. GENERAL APPEARANCE: Propped up in bed. Looking better. EYES: Pupils equal. Conjunctivae normal. HEENT: External appearance of nose and ears normal. Oral cavity normal. NECK: JVD not raised. Mass not palpable. RESPIRATORY: Effort normal. LUNGS: Fair air entry. CARDIOVASCULAR: First and second sounds normal. No edema. ABDOMEN: Soft. Some abdominal tenderness. No guarding or rigidity. Liver and spleen not palpable. PSYCHIATRY: Alert and oriented x3. Mood and affect anxious-appearing. INVESTIGATIONS: No blood work from today. Stool negative for C difficile. ASSESSMENT: 1. Acute on chronic abdominal pain, possible underlying chronic pancreatitis flareup. 2. Chronic esophagitis. Patient also on Fosamax that causes pill esophagitis. Will discontinue the same. 3. Nonspecific colitis, chronic. 4. Moderate protein-calorie malnutrition from decreased oral intake. 5. Chronic rheumatoid arthritis. 6. Patient is pending workup at [facility]. PLAN: Talked to the patient. She is okay to stop the IV Dilaudid this evening, resume home oral pain medications. Talked to patient about taking yogurt and Ensure. Possible discharge tomorrow. Did talk to Jordana from GI about discontinuation of the Fosamax that patient says was started by Dr. Nagy. MMKJL / IJN: [id number] /
[2018-05-05] MEDS: MORPHINE SULFATE IR 15 MG TABLET PO PRN ×2 (00:47→09:58)
[2018-05-05 04:24] LABS: Gliadin AB IgA, Unit <0.2 U/mL
[2018-05-05] MEDS: MORPHINE SULFATE ER 30 MG TABLET PO SCH ×2 (05:02→13:10)
[2018-05-05 06:58] LABS: Anion Gap 4 mmol/L; Blood Urea Nitrogen 8 mg/dL (7-17); Calcium 8.9 mg/dL (8.4-10.2); Carbon Dioxide 20 mmol/L (22-30); Chloride 117 mmol/L (98-107); Glucose 84 mg/dL (74-99); Sodium 141 mmol/L (137-145)
[2018-05-05 07:07] LABS: Basophils % (A) 0 %; Eosinophils % (A) 1 %; HCT 39.7 % (34.0-46.0); Lymphocytes # (A) 1.9 k/uL (1.0-4.8); Lymphocytes % (A) 45 %; MCHC 32.8 g/dL (31.0-37.0); MCV 94.6 fL (80.0-100.0); Mean Platelet Volume 6.9; Monocytes # (A) 0.4 k/uL (0-1.0); Monocytes % (A) 8 %; Neutrophils # (A) 1.8 k/uL (1.3-7.7); Neutrophils % (A) 43 %; Platelet Count 189 k/uL (150-450); RDW 13.1 % (11.5-15.5); WBC 4.2 k/uL (3.8-10.6)
[2018-05-05] MEDS: PANTOPRAZOLE 40 MG/10 ML VIAL IVP SCH (08:00)
[2018-05-05] MEDS: LIPASE 5,000/PROTEASE 17,000/AMYLASE 24,000 PO SCH ×2 (08:01→12:05)
[2018-05-05] MEDS: ENOXAPARIN 40 MG/0.4 ML SYRINGE SQ SCH (08:01)
[2018-05-05] MEDS: LORATADINE 10 MG TAB PO SCH (08:01)
[2018-05-05 08:22] VITALS: RESP 20
[2018-05-05 10:46] LABS: Anti-Endomysial IgA Antibody <1:10 Titer (<1:10)
[2018-05-05 12:09] VITALS: BP 108/66; PULSE 56; TEMP 98.5
--- NOTE | 2018-05-06 03:18 | DS ---
DISCHARGE SUMMARY DATE OF ADMISSION: May 02, 2018. DATE OF DISCHARGE: May 05, 2018. FINAL DIAGNOSES: 1. Acute on chronic abdominal pain, possibly from chronic pancreatitis with acute flare up. 2. Chronic esophagitis. The patient on Fosamax that may be causing esophagitis, has been discontinued. 3. Nonspecific colitis, chronic. 4. Moderate protein-calorie malnutrition from decreased oral intake. 5. Chronic rheumatoid arthritis. HOSPITAL COURSE: This patient who has got nonspecific colitis from previous colonoscopy, possible pancreatitis. Has had multiple admissions for abdominal pain, being referred to [facility] pending follow up in next 12 days, yet again presented with abdominal pain. The patient did undergo an MRCP. No dilatation of intrahepatic or pancreatic duct was found. The patient will need endoscopic ultrasound on the road. Patient is tolerating a liquid diet at the time of discharge. CONSULTATION: Dr. Kohli from Oncology and Dr. Rosales from Gastroenterology. EXAMINATION: Temp 98.5, pulse 56, respiration 20, blood pressure 105/56. Abdomen soft, minimal tender. Psych AO x3. DISCHARGE MEDICATIONS: 1. Imitrex p.r.n. 2. Omeprazole 20 mg a day. 3. Zofran 8 mg t.i.d. p.r.n. 4. Creon 47099 units 3 capsules p.o. a.c. t.i.d. 5. Claritin 10 mg a day. 6. Singulair 10 mg q.h.s. 7. MS Contin 30 mg p.o. q.8. 8. MS Contin emergently 15 mg p.o. b.i.d. p.r.n. 9. Humira 40 mg subcu every 14 days. Discontinued medications: Fosamax concerned about pill esophagitis. Patient to keep her [facility] appointment coming up in next [address] Nagy in 2-[address] Dobbins in 1 week. DIET: Full liquid, soft bland as tolerated. Copy to Dr. Dobbins. MMODL / IJN: [id number] /
== END 2018-05-05 15:11 | disposition home or self-care (01) | DRG 439 ==
LOC: EC 12:01 → 6PED 18:20
PROVIDERS: ADMIT Hospitalist; ATTEND Hospitalist
DX: K85.90 Acute pancreatitis without necrosis or infection, unspecified (principal); E44.0 Moderate protein-calorie malnutrition; K50.90 Crohn's disease, unspecified, without complications; Z68.1 Body mass index [BMI] 19.9 or less, adult; K86.1 Other chronic pancreatitis; G62.9 Polyneuropathy, unspecified; G89.4 Chronic pain syndrome; K21.0 Gastro-esophageal reflux disease with esophagitis; K57.30 Diverticulosis of large intestine without perforation or abscess without bleeding; M06.9 Rheumatoid arthritis, unspecified; M19.90 Unspecified osteoarthritis, unspecified site; N63.20 Unspecified lump in the left breast, unspecified quadrant; H26.9 Unspecified cataract; R59.1 Generalized enlarged lymph nodes; K52.9 Noninfective gastroenteritis and colitis, unspecified; K86.89 Other specified diseases of pancreas; T45.8X5A Adverse effect of other primarily systemic and hematological agents, initial encounter; Z90.49 Acquired absence of other specified parts of digestive tract; Z79.891 Long term (current) use of opiate analgesic; Z79.899 Other long term (current) drug therapy; Z88.8 Allergy status to other drugs, medicaments and biological substances; Z87.11 Personal history of peptic ulcer disease; Z87.440 Personal history of urinary (tract) infections; Z82.49 Family history of ischemic heart disease and other diseases of the circulatory system
CPT/HCPCS: 36415; 74183; 76705; 80048; 80053; 81001; 81025; 82150; 83516; 83690; 85025; 86255; 86301; 87324; 96361; 96374; 96375; 96376; 99285

== ENCOUNTER 2018-05-07 12:51 | Emergency (ER) | payer OTHER ==
[2018-05-07] MEDS ORDERED: ONDANSETRON ODT 4 MG TAB PO STA (14:10)
[2018-05-07] MEDS ORDERED: MORPHINE SULFATE 4 MG/ML SYRINGE IV STA ×2 (14:17→15:38)
[2018-05-07 14:36] LABS: Basophils % (A) 0 %; Eosinophils # (A) 0.1 k/uL (0-0.7); Eosinophils % (A) 1 %; HCT 42.7 % (34.0-46.0); HGB 14.2 gm/dL (11.4-16.0); Lymphocytes # (A) 1.4 k/uL (1.0-4.8); Lymphocytes % (A) 19 %; MCH 31.2 pg (25.0-35.0); MCHC 33.1 g/dL (31.0-37.0); MCV 94.1 fL (80.0-100.0); Mean Platelet Volume 7.2; Monocytes # (A) 0.3 k/uL (0-1.0); Monocytes % (A) 4 %; Neutrophils # (A) 5.6 k/uL (1.3-7.7); Neutrophils % (A) 74 %; Platelet Count 218 k/uL (150-450); RBC 4.54 m/uL (3.80-5.40); RDW 13.1 % (11.5-15.5); WBC 7.5 k/uL (3.8-10.6)
[2018-05-07 14:46] LABS: ALT 25 U/L (9-52); AST 22 U/L (14-36); Alkaline Phosphatase 54 U/L (38-126); Anion Gap 7 mmol/L; Blood Urea Nitrogen 9 mg/dL (7-17); Calcium 9.6 mg/dL (8.4-10.2); Carbon Dioxide 21 mmol/L (22-30); Chloride 113 mmol/L (98-107); Glucose 90 mg/dL (74-99); Magnesium 1.9 mg/dL (1.6-2.3); Sodium 141 mmol/L (137-145); Total Bilirubin 0.8 mg/dL (0.2-1.3); Total Protein 6.7 g/dL (6.3-8.2)
[2018-05-07] MEDS ORDERED: SODIUM CHLORIDE 0.9% 1,000 ML IV STA ×2 (14:46→16:48)
[2018-05-07] MEDS ORDERED: ONDANSETRON 4 MG/2 ML VIAL IVP STA (15:10)
[2018-05-07 15:20] VITALS: RESP 18
[2018-05-07 15:23] LABS: Amorphous Sediment,Urine Rare /hpf; Appearance,Urine Cloudy (Clear); Bacteria,Urine Rare /hpf; Bilirubin,Urine Negative (Negative); Blood,Urine Negative (Negative); Color,Urine Yellow; Glucose,Urine (UA) Negative (Negative); Hyaline Casts,Urine 6 /lpf (0-2); Ketones,Urine Negative (Negative); Leukocyte Esterase,Urine Negative (Negative); Mucus,Urine Many /hpf; Nitrite,Urine Negative (Negative); PH, Urine 6.5 (5.0-8.0); Protein,Urine Trace (Negative); RBC,Urine 3 /hpf (0-5); Specific Gravity,Urine 1.016 (1.001-1.035); Squamous Epithelial Cell,Urine 10 /hpf (0-4)
--- NOTE | 2018-05-07 17:07 | ED ---
General Adult HPI - General Chief complaint: Abdominal Pain Stated complaint: NVD Time Seen by Provider: 05/07/18 13:11 Source: patient, RN notes reviewed, old records reviewed Mode of arrival: ambulatory Limitations: no limitations - History of Present Illness Initial comments: 42-year-old female patient presents to ED with acute nausea and vomiting, epigastric pain. Patient was recently admitted for this problem from 05/02-. Patient had extensive evaluation during admission for her history of chronic pancreatitis. Including having a MRI of pancreatitis 05/03. The symptoms of the patient is currently expansion of the same symptoms that she was maintained in hospital stay. There are no new symptoms which she is experiencing. She has persistent epigastric pain, nausea vomiting and diarrhea. Patient is requesting pain medication. Patient reports that she takes 30 mg morphine by mouth at home, we'll taking the medication today due to the vomiting. Patient denies any other new symptoms including chest pain, shortness of breath, diarrhea, headache, changes in vision. Systemic: Pt denies fatigue, myalgia, fever/chills, rash. Pt denies weakness, night sweats, weight loss. Neuro: Pt denies headache, visual disturbances, syncope or pre-syncope. HEENT: Pt denies ocular discharge or irritation, otalgia, rhinorrhea, pharyngitis or notable lymphadenopathy. Cardiopulmonary: Pt denies chest pain, SOB, heart palpitations, dyspnea on exertion. : Pt denies dysuria, burning w/ urination, frequency/urgency. Denies new onset urinary or bowel incontinence. MSK: Pt denies myalgia, loss of strength or function in extremities. - Related Data Home Medications Medication Instructions Recorded Confirmed SUMAtriptan SUCCINATE [Imitrex] 100 mg PO DAILY PRN 06/07/16 05/02/18 Omeprazole 20 mg PO DAILY 08/05/16 05/02/18 Ondansetron [Zofran ODT] 8 mg PO TID PRN 08/18/16 05/02/18 Lipase/Protease/Amylase [Thor Ambrocio 3 cap PO AC-TID 09/14/16 05/02/18 24,000 Units Capsule] Loratadine 10 mg PO DAILY 09/14/16 05/02/18 Montelukast Sodium [Singulair] 10 mg PO HS 03/28/17 11/13/18 Morphine Sulfate ER [Ms Contin] 30 mg PO Q8H 09/14/16 05/02/18 Morphine Sulfate Ir [MSIR] 15 mg PO BID PRN 09/14/16 05/02/18 Adalimumab [Humira Pen] 40 mg SQ [id number] 12/25/16 05/02/18 Allergies Allergy/AdvReac Type Severity Reaction Status Date / Time metoclopramide [From Reglan] AdvReac Intermediate Twitching Verified 05/07/18 13 :15 Review of Systems ROS Statement: Those systems with pertinent positive or pertinent negative responses have been documented in the HPI. ROS Other: All systems not noted in ROS Statement are negative. Past Medical History Past Medical History: Eye Disorder, GERD/Reflux, GI Bleed, Neurologic Disorder, Osteoarthritis (OA), Rheumatoid Arthritis (RA) Additional Past Medical History / Comment(s): Chronic pancreatitis, Crohn's disease, chronic esophagitis, blood in stool, diverticulosis, hx ulcers, frequent UTI'S, hx blood clots in bilateral arms pt states d/t picc lines, hx anemia with numerous transfusions, hx kidney failure from dehydration 12 yrs ago , neuropathy, cataracts. History of Any Multi-Drug Resistant Organisms: None Reported Past Surgical History: Cholecystectomy Additional Past Surgical History / Comment(s): colonsocopies, EGDs Past Anesthesia/Blood Transfusion Reactions: No Reported Reaction Additional Past Anesthesia/Blood Transfusion Reaction / Comment(s): Has had about 13 blood transfusions. Past Psychological History: No Psychological Hx Reported Smoking Status: Never smoker Past Alcohol Use History: None Reported Past Drug Use History: None Reported - Past Family History Father Family Medical History: Myocardial Infarction ([place]) Additional Family Medical History / Comment(s): Father had drug abuse problem. He of a [place] at the age of 61 yrs. Mother Family Medical History: Hypertension Additional Family Medical History / Comment(s): Mother is living. General Exam - General Exam Comments Initial Comments: Constitutional: NAD, AOX3, Pt has pleasant affect. HEENT: NC/AT, trachea midline, neck supple, no lymphadenopathy. Posterior pharynx non erythematous, without exudates. External ears appear normal, without discharge. Mucous membranes moist. Eyes PERRLA, EOM intact. There is no scleral icterus. No pallor noted. Cardiopulmonary: RRR, no murmurs, rubs or gallops, no JVD noted. Lungs CTAB in anterior and posterior arzate. No peripheral edema. Abdominal exam: Abdomen soft and non-distended. Abdomen mildly tender to palpation in epigastric region. Rest of abdomen nontender. CVA tenderness negative. No ecchymoses, Arauz Sargent sign negative,cullens Sign negative. Bowel sounds active in LLQ. No hepatosplenomegaly. Neuro: CN II-XII grossly intact. Limitations: no limitations Course Vital Signs 05/07/18 05/07/18 13:13 15:19 Temperature 98.1 F Pulse Rate 93 69 Respiratory 20 18 Rate Blood Pressure 112/80 114/84 O2 Sat by Pulse 98 96 Oximetry Medical Decision Making - Medical Decision Making 42-year-old female patient long history of nausea vomiting , chronic epigastric pain presents to ED for complaints of nausea vomiting and epigastric pain. Patient recently had extensive workup for this and was hospitalized from 1120 131/16. She is not experiencing any symptoms that she was expressing prior, during her previous evaluation. Physical exam in ED displayed mild epigastric tenderness, no ecchymoses, no other abnormal findings. Her pulmonary exam to normal limits. Laboratory investigations including CBC, CMP, UA were not wishes for acute pathology. Lipase is within normal limits. Patient pain was controlled in ED, patient was given Zofran for nausea. Patient was given IV fluids. Patient will not be driving home, boyfriend will be driving home. Patient to discharge with after reasonable control of her symptoms. Patient to take medications She was previously prescribed at home including pain medication , Zofran. Patient given strict parameters for return including abdominal pain, chest pain, shortness breath or any other new symptoms. Patient to follow-up with PCP in 1-2 days. Case discussed in depth with Dr. Cook. - Lab Data Result diagrams: 05/07/18 14:30 05/07/18 14:30 Lab Results 05/07/18 05/07/18 05/07/18 Range/Units 14:30 14:30 14:30 WBC 7.5 (3.8-10.6) k/uL RBC 4.54 (3.80-5.40) m/uL Hgb 14.2 (11.4-16.0) gm/dL Hct 42.7 (34.0-46.0) % MCV 94.1 (80.0-100.0) fL MCH 31.2 (25.0-35.0) pg MCHC 33.1 (31.0-37.0) g/dL RDW 13.1 (11.5-15.5) % Plt Count 218 (150-450) k/uL Neutrophils % 74 % Lymphocytes % 19 % Monocytes % 4 % Eosinophils % 1 % Basophils % 0 % Neutrophils # 5.6 (1.3-7.7) k/uL Lymphocytes # 1.4 (1.0-4.8) k/uL Monocytes # 0.3 (0-1.0) k/uL Eosinophils # 0.1 (0-0.7) k/uL Basophils # 0.0 (0-0.2) k/uL Sodium 141 (137-145) mmol/L Potassium 4.0 (3.5-5.1) mmol/L Chloride 113 H (98-107) mmol/L Carbon Dioxide 21 L (22-30) mmol/L Anion Gap 7 mmol/L BUN 9 (7-17) mg/dL Creatinine 0.59 (0.52-1.04) mg/dL Est GFR (CKD-EPI)AfAm >90 (>60 ml/min/1.73 sqM) Est GFR (CKD-EPI)NonAf >90 (>60 ml/min/1.73 sqM) Glucose 90 (74-99) mg/dL Calcium 9.6 (8.4-10.2) mg/dL Magnesium 1.9 (1.6-2.3) mg/dL Total Bilirubin 0.8 (0.2-1.3) mg/dL AST 22 (14-36) U/L ALT 25 (9-52) U/L Alkaline Phosphatase 54 (38-126) U/L Total Protein 6.7 (6.3-8.2) g/dL Albumin 4.0 (3.5-5.0) g/dL Lipase 171 (23-300) U/L Urine Color Urine Appearance (Clear) Urine pH (5.0-8.0) Ur Specific Anderson (1.001-1.035) Urine Protein (Negative) Urine Glucose (UA) (Negative) Urine Ketones (Negative) Urine Blood (Negative) Urine Nitrite (Negative) Urine Bilirubin (Negative) Urine Urobilinogen (<2.0) mg/dL Ur Leukocyte Esterase (Negative) Urine RBC (0-5) /hpf Urine WBC (0-5) /hpf Ur Squamous Epith Cells (0-4) /hpf Amorphous Sediment (None) /hpf Urine Bacteria (None) /hpf Hyaline Casts (0-2) /lpf Urine Mucus (None) /hpf 05/07/18 Range/Units 14:40 WBC (3.8-10.6) k/uL RBC (3.80-5.40) m/uL Hgb (11.4-16.0) gm/dL Hct (34.0-46.0) % MCV (80.0-100.0) fL MCH (25.0-35.0) pg MCHC (31.0-37.0) g/dL RDW (11.5-15.5) % Plt Count (150-450) k/uL Neutrophils % % Lymphocytes % % Monocytes % % Eosinophils % % Basophils % % Neutrophils # (1.3-7.7) k/uL Lymphocytes # (1.0-4.8) k/uL Monocytes # (0-1.0) k/uL Eosinophils # (0-0.7) k/uL Basophils # (0-0.2) k/uL Sodium (137-145) mmol/L Potassium (3.5-5.1) mmol/L Chloride (98-107) mmol/L Carbon Dioxide (22-30) mmol/L Anion Gap mmol/L BUN (7-17) mg/dL Creatinine (0.52-1.04) mg/dL Est GFR (CKD-EPI)AfAm (>60 ml/min/1.73 sqM) Est GFR (CKD-EPI)NonAf (>60 ml/min/1.73 sqM) Glucose (74-99) mg/dL Calcium (8.4-10.2) mg/dL Magnesium (1.6-2.3) mg/dL Total Bilirubin (0.2-1.3) mg/dL AST (14-36) U/L ALT (9-52) U/L Alkaline Phosphatase (38-126) U/L Total Protein (6.3-8.2) g/dL Albumin (3.5-5.0) g/dL Lipase (23-300) U/L Urine Color Yellow Urine Appearance Cloudy H (Clear) Urine pH 6.5 (5.0-8.0) Ur Specific Anderson 1.016 (1.001-1.035) Urine Protein Trace H (Negative) Urine Glucose (UA) Negative (Negative) Urine Ketones Negative (Negative) Urine Blood Negative (Negative) Urine Nitrite Negative (Negative) Urine Bilirubin Negative (Negative) Urine Urobilinogen 3.0 (<2.0) mg/dL Ur Leukocyte Esterase Negative (Negative) Urine RBC 3 (0-5) /hpf Urine WBC 1 (0-5) /hpf Ur Squamous Epith Cells 10 H (0-4) /hpf Amorphous Sediment Rare H (None) /hpf Urine Bacteria Rare H (None) /hpf Hyaline Casts 6 H (0-2) /lpf Urine Mucus Many H (None) /hpf Disposition Clinical Impression: Nausea & vomiting, History of pancreatitis Disposition: HOME SELF-CARE Condition: Good Instructions: Acute Nausea and Vomiting (ED) Additional Instructions: Patient to adhere to previously discussed treatment plan and will take medication(s) as directed. Patient to follow up with PCP in 1-2 days. Patient to return to ED if symptoms do not improve. Is patient prescribed a controlled substance at d/c from ED?: No Referrals: Derek Dobbins MD [Primary Care Provider] - 1-2 days Time of Disposition: 17:06
[2018-05-07 17:45] VITALS: BP 110/87; PULSE 85; TEMP 98.8
== END 2018-05-07 17:15 | disposition home or self-care (01) ==
LOC: EC 12:51
DX: R11.2 Nausea with vomiting, unspecified (principal); R10.13 Epigastric pain; R19.7 Diarrhea, unspecified; K21.9 Gastro-esophageal reflux disease without esophagitis; M06.9 Rheumatoid arthritis, unspecified; M19.90 Unspecified osteoarthritis, unspecified site; Z88.8 Allergy status to other drugs, medicaments and biological substances; Z79.891 Long term (current) use of opiate analgesic; Z79.899 Other long term (current) drug therapy; Z87.19 Personal history of other diseases of the digestive system; Z86.2 Personal history of diseases of the blood and blood-forming organs and certain disorders involving the immune mechanism; Z90.49 Acquired absence of other specified parts of digestive tract
CPT/HCPCS: 99284 ×2; 96374 ×2; 96375 ×2; 96376 ×2; 96361 ×2; 36415; 80053; 83690; 83735; 85025; 81001; J2270; J2405

== ENCOUNTER → 2018-05-12 | Outpatient (CLI) | payer OTHER ==
--- NOTE | 2018-05-15 08:44 | MM ---
Reason for exam: clinical finding. History: Took hormonal contraceptives beginning at age 17. Physical Findings: Nurse Summary: 1cm nodule in the left breast at 12 o'clock and 1:30 (nurse susan). MG Diagnostic Mammo w CAD GAYLE Bilateral CC and MLO view(s) were taken. The breast tissue is extremely dense which could obscure a lesion on mammography. There is no discrete abnormality on mammogram. Focal asymmetry at 12 o'clock anterior BB, may correspond to cystic cluster on ultrasound. These results were verbally communicated with the patient and result sheet given to the patient on 05/12/18. ASSESSMENT: Probably benign, BI-RAD 3 RECOMMENDATION: Follow-up diagnostic mammogram of the left breast in 6 months. (with tomography) Manage on a clinical basis with regard to palpable regions left breast.
--- NOTE | 2018-05-15 08:45 | USB ---
Reason for exam: clinical finding. History: Took hormonal contraceptives beginning at age 17. US Breast LT Left complete breast ultrasound includes all four quadrants, the retroareolar region and axilla. Finding demonstrates a 4 x 2 x 4mm oval, cystic lesion at 6 o'clock and a 11 x 6 x 10mm lobular, mixed, hypoechoic lesion at 3 o'clock. These results were verbally communicated with the patient and result sheet given to the patient on 05/12/18. ASSESSMENT: Probably benign, BI-RAD 3 RECOMMENDATION: Ultrasound of the left breast in 6 months. Manage on a clinical basis with regard to palpable regions.
== END | disposition home or self-care (01) ==
LOC: RADMAMWWP 08:55
PROVIDERS: ATTEND Pediatrics
DX: N63.20 Unspecified lump in the left breast, unspecified quadrant (principal)
CPT/HCPCS: 77066

== ENCOUNTER 2018-05-31 20:37 | Observation (INO) | payer OTHER ==
[2018-05-31] MEDS ORDERED: SODIUM CHLORIDE 0.9% 1,000 ML IV STA (21:14)
[2018-05-31] MEDS ORDERED: MORPHINE SULFATE 4 MG/ML SYRINGE IVP STA (21:20)
--- NOTE | 2018-05-31 21:23 | ED ---
Abdominal Pain HPI - General Chief Complaint: Abdominal Pain Stated Complaint: Pancreas problems Time Seen by Provider: 05/31/18 21:13 Source: patient Mode of arrival: ambulatory Limitations: no limitations - History of Present Illness Initial Comments: Smita is a 42 yo female with PMH of Crohns disease and recurrent pancreatitis who presents to the ED today for evaluation of epigastric abdominal pain, nausea , vomiting and diarrhea. Patient has a history of chronic abdominal pain, recurrent pancreatitis for which she is being followed by specialists at the [facility]. Patient states that she had a MRCP at the [facility] on Tuesday, she states that she was feeling well until Tuesday when she began feeling nauseated and has been unable to hold down any medications. Patient states that throughout the day today she's been unable to drink any fluids, she's had multiple episodes of nonbloody nonbilious emesis and multiple episodes of diarrhea. She describes the pain is epigastric in nature and similar to previous episodes of pancreatitis. Pain is not associated with any chest pain, palpitations or shortness of breath. - Related Data Home Medications Medication Instructions Recorded Confirmed SUMAtriptan SUCCINATE [Imitrex] 100 mg PO DAILY PRN 06/07/16 05/31/18 Omeprazole 20 mg PO DAILY 08/05/16 05/31/18 Ondansetron [Zofran ODT] 8 mg PO TID PRN 08/18/16 05/31/18 Lipase/Protease/Amylase [Creon Dr 72,000 mg PO AC-TID 09/14/16 05/31/18 24,000 Units Capsule] Loratadine 10 mg PO DAILY 09/14/16 05/31/18 Montelukast Sodium [Singulair] 10 mg PO HS 09/14/16 05/31/18 Morphine Sulfate ER [Ms Contin] 30 mg PO Q8H 09/14/16 05/31/18 Morphine Sulfate Ir [MSIR] 15 mg PO BID PRN 09/14/16 05/31/18 Adalimumab [Humira Pen] 40 mg SQ [id number] 12/25/16 05/31/18 Alendronate Sodium [Fosamax] 70 mg PO WE 05/31/18 05/31/18 Allergies Allergy/AdvReac Type Severity Reaction Status Date / Time metoclopramide [From Reglan] AdvReac Intermediate Twitching Verified 05/31/18 21 :33 Review of Systems ROS Statement: Those systems with pertinent positive or pertinent negative responses have been documented in the HPI. ROS Other: All systems not noted in ROS Statement are negative. Past Medical History Past Medical History: Eye Disorder, GERD/Reflux, GI Bleed, Neurologic Disorder, Osteoarthritis (OA), Rheumatoid Arthritis (RA) Additional Past Medical History / Comment(s): Chronic pancreatitis, Crohn's disease, chronic esophagitis, blood in stool, diverticulosis, hx ulcers, frequent UTI'S, hx blood clots in bilateral arms pt states d/t picc lines, hx anemia with numerous transfusions, hx kidney failure from dehydration 12 yrs ago , neuropathy, cataracts. History of Any Multi-Drug Resistant Organisms: None Reported Past Surgical History: Cholecystectomy Additional Past Surgical History / Comment(s): colonsocopies, EGDs Past Anesthesia/Blood Transfusion Reactions: No Reported Reaction Additional Past Anesthesia/Blood Transfusion Reaction / Comment(s): Has had about 13 blood transfusions. Past Psychological History: No Psychological Hx Reported Smoking Status: Never smoker Past Alcohol Use History: None Reported Past Drug Use History: None Reported - Past Family History Father Family Medical History: Myocardial Infarction ([place]) Additional Family Medical History / Comment(s): Father had drug abuse problem. He of a [place] at the age of 61 yrs. Mother Family Medical History: Hypertension Additional Family Medical History / Comment(s): Mother is living. General Exam - General Exam Comments Initial Comments: Physical Exam GENERAL: Chronically ill-appearing 42-year-old female HENT: Normocephalic, Atraumatic. EYES: PERRL, EOMI PULMONARY: Unlabored respirations. No audible rales rhonchi or wheezing was noted. CARDIOVASCULAR: There is a regular rate and rhythm without any murmurs gallops or rubs. ABDOMEN: Soft normal bowel sounds. Tenderness palpation in the epigastrium SKIN: Skin is clear with no lesions or rashes and otherwise unremarkable. : Deferred NEUROLOGIC: Patient is alert and oriented x3. Moving all extremities spontaneously MUSCULOSKELETAL: Normal extremities with adequate strength and full range of motion. No lower extremity swelling or edema. No calf tenderness. PSYCHIATRIC: Normal psychiatric evaluation. Limitations: no limitations Limitations: no limitations Course Vital Signs 05/31/18 05/31/18 05/31/18 20:57 22:49 23:45 Temperature 98.0 F Pulse Rate 54 L 54 L 52 L Respiratory 19 16 16 Rate Blood Pressure 122/93 124/84 128/74 O2 Sat by Pulse 100 98 100 Oximetry Medical Decision Making - Medical Decision Making The patient was seen and evaluated, history is obtained from the patient and review of medical record Labs were ordered IV fluids, Zofran and morphine were ordered Labs with no significant abnormalities, patient's nausea resolved after Zofran, pain improved after first dose of morphine however patient was reevaluated and was again writhing in pain. IV Dilaudid was ordered and given the patient subsequently developed nausea and vomiting, repeat dose of Zofran was given. At this time I feel the patient warrants admission for intractable abdominal pain and chronic pancreatitis. Patient's agreeable to this plan. Admission orders were placed. - Lab Data Result diagrams: 05/31/18 21:35 05/31/18 21:35 Lab Results 05/31/18 05/31/18 05/31/18 Range/Units 21:35 21:35 22:37 WBC 11.9 H (3.8-10.6) k/uL RBC 5.22 (3.80-5.40) m/uL Hgb 16.1 H (11.4-16.0) gm/dL Hct 49.2 H (34.0-46.0) % MCV 94.3 (80.0-100.0) fL MCH 30.9 (25.0-35.0) pg MCHC 32.8 (31.0-37.0) g/dL RDW 13.4 (11.5-15.5) % Plt Count 293 (150-450) k/uL Neutrophils % 79 % Lymphocytes % 14 % Monocytes % 4 % Eosinophils % 1 % Basophils % 0 % Neutrophils # 9.4 H (1.3-7.7) k/uL Lymphocytes # 1.7 (1.0-4.8) k/uL Monocytes # 0.5 (0-1.0) k/uL Eosinophils # 0.1 (0-0.7) k/uL Basophils # 0.0 (0-0.2) k/uL Sodium 141 (137-145) mmol/L Potassium 4.2 (3.5-5.1) mmol/L Chloride 106 (98-107) mmol/L Carbon Dioxide 22 (22-30) mmol/L Anion Gap 13 mmol/L BUN 17 (7-17) mg/dL Creatinine 0.75 (0.52-1.04) mg/dL Est GFR (CKD-EPI)AfAm >90 (>60 ml/min/1.73 sqM) Est GFR (CKD-EPI)NonAf >90 (>60 ml/min/1.73 sqM) Glucose 109 H (74-99) mg/dL Calcium 11.0 H (8.4-10.2) mg/dL Total Bilirubin 0.9 (0.2-1.3) mg/dL AST 20 (14-36) U/L ALT 21 (9-52) U/L Alkaline Phosphatase 66 (38-126) U/L Total Protein 8.1 (6.3-8.2) g/dL Albumin 5.0 (3.5-5.0) g/dL Amylase 70 (30-110) U/L Lipase 142 (23-300) U/L Urine Color Urine Appearance (Clear) Urine pH (5.0-8.0) Ur Specific Emblem (1.001-1.035) Urine Protein (Negative) Urine Glucose (UA) (Negative) Urine Ketones (Negative) Urine Blood (Negative) Urine Nitrite (Negative) Urine Bilirubin (Negative) Urine Urobilinogen (<2.0) mg/dL Ur Leukocyte Esterase (Negative) Urine RBC (0-5) /hpf Urine WBC (0-5) /hpf Ur Squamous Epith Cells (0-4) /hpf Urine Bacteria (None) /hpf Urine Mucus (None) /hpf Urine HCG, Qual Not Detected (Not Detectd) 05/31/18 Range/Units 22:37 WBC (3.8-10.6) k/uL RBC (3.80-5.40) m/uL Hgb (11.4-16.0) gm/dL Hct (34.0-46.0) % MCV (80.0-100.0) fL MCH (25.0-35.0) pg MCHC (31.0-37.0) g/dL RDW (11.5-15.5) % Plt Count (150-450) k/uL Neutrophils % % Lymphocytes % % Monocytes % % Eosinophils % % Basophils % % Neutrophils # (1.3-7.7) k/uL Lymphocytes # (1.0-4.8) k/uL Monocytes # (0-1.0) k/uL Eosinophils # (0-0.7) k/uL Basophils # (0-0.2) k/uL Sodium (137-145) mmol/L Potassium (3.5-5.1) mmol/L Chloride (98-107) mmol/L Carbon Dioxide (22-30) mmol/L Anion Gap mmol/L BUN (7-17) mg/dL Creatinine (0.52-1.04) mg/dL Est GFR (CKD-EPI)AfAm (>60 ml/min/1.73 sqM) Est GFR (CKD-EPI)NonAf (>60 ml/min/1.73 sqM) Glucose (74-99) mg/dL Calcium (8.4-10.2) mg/dL Total Bilirubin (0.2-1.3) mg/dL AST (14-36) U/L ALT (9-52) U/L Alkaline Phosphatase (38-126) U/L Total Protein (6.3-8.2) g/dL Albumin (3.5-5.0) g/dL Amylase (30-110) U/L Lipase (23-300) U/L Urine Color Yellow Urine Appearance Cloudy H (Clear) Urine pH 5.5 (5.0-8.0) Ur Specific Emblem 1.023 (1.001-1.035) Urine Protein 1+ H (Negative) Urine Glucose (UA) Negative (Negative) Urine Ketones 3+ H (Negative) Urine Blood Small H (Negative) Urine Nitrite Negative (Negative) Urine Bilirubin Negative (Negative) Urine Urobilinogen 3.0 (<2.0) mg/dL Ur Leukocyte Esterase Negative (Negative) Urine RBC 3 (0-5) /hpf Urine WBC 1 (0-5) /hpf Ur Squamous Epith Cells 14 H (0-4) /hpf Urine Bacteria Rare H (None) /hpf Urine Mucus Many H (None) /hpf Urine HCG, Qual (Not Detectd) Disposition Clinical Impression: Abdominal pain, Nausea & vomiting, Uncontrolled pain, History of pancreatitis, Chronic abdominal pain Disposition: ADMITTED IP TO THIS HOSP Is patient prescribed a controlled substance at d/c from ED?: No Referrals: Derek Dobbins MD [Primary Care Provider] - 1-2 days
[2018-05-31] MEDS ORDERED: ONDANSETRON 4 MG/2 ML VIAL IVP STA (21:39)
[2018-05-31 21:46] LABS: Basophils % (A) 0 %; Eosinophils # (A) 0.1 k/uL (0-0.7); Eosinophils % (A) 1 %; HCT 49.2 % (34.0-46.0); HGB 16.1 gm/dL (11.4-16.0); Lymphocytes # (A) 1.7 k/uL (1.0-4.8); Lymphocytes % (A) 14 %; MCH 30.9 pg (25.0-35.0); MCHC 32.8 g/dL (31.0-37.0); MCV 94.3 fL (80.0-100.0); Mean Platelet Volume 6.7; Monocytes # (A) 0.5 k/uL (0-1.0); Monocytes % (A) 4 %; Neutrophils # (A) 9.4 k/uL (1.3-7.7); Neutrophils % (A) 79 %; Platelet Count 293 k/uL (150-450); RBC 5.22 m/uL (3.80-5.40); RDW 13.4 % (11.5-15.5); WBC 11.9 k/uL (3.8-10.6)
[2018-05-31 21:57] LABS: ALT 21 U/L (9-52); AST 20 U/L (14-36); Alkaline Phosphatase 66 U/L (38-126); Amylase 70 U/L (30-110); Anion Gap 13 mmol/L; Blood Urea Nitrogen 17 mg/dL (7-17); Carbon Dioxide 22 mmol/L (22-30); Chloride 106 mmol/L (98-107); Glucose 109 mg/dL (74-99); Lipase 142 U/L (23-300); Potassium 4.2 mmol/L (3.5-5.1); Sodium 141 mmol/L (137-145); Total Bilirubin 0.9 mg/dL (0.2-1.3); Total Protein 8.1 g/dL (6.3-8.2)
[2018-05-31 23:08] LABS: Appearance,Urine Cloudy (Clear); Bacteria,Urine Rare /hpf; Bilirubin,Urine Negative (Negative); Blood,Urine Small (Negative); Color,Urine Yellow; Glucose,Urine (UA) Negative (Negative); Ketones,Urine 3+ (Negative); Leukocyte Esterase,Urine Negative (Negative); Mucus,Urine Many /hpf; Nitrite,Urine Negative (Negative); PH, Urine 5.5 (5.0-8.0); Protein,Urine 1+ (Negative); RBC,Urine 3 /hpf (0-5); Specific Gravity,Urine 1.023 (1.001-1.035); Squamous Epithelial Cell,Urine 14 /hpf (0-4); WBC,Urine 1 /hpf (0-5)
[2018-05-31] MEDS ORDERED: ONDANSETRON 4 MG/2 ML VIAL IVP PRN (23:36)
[2018-05-31] MEDS ORDERED: NALOXONE 0.4 MG/ML 1 ML VIAL IV PRN (23:36)
[2018-05-31] MEDS ORDERED: MORPHINE SULFATE IR 15 MG TABLET PO PRN (23:38)
[2018-05-31] MEDS ORDERED: HYDROmorphone 1 MG/ML 1 ML SYRINGE IVP STA (23:41)
[2018-06-01] MEDS: SODIUM CHLORIDE 0.9% 1,000 ML IV SCH ×3 (00:17→16:18)
[2018-06-01] MEDS ORDERED: SUMAtriptan SUCCINATE 50 MG TAB PO PRN (01:00)
[2018-06-01] MEDS: MORPHINE SULFATE 4 MG/ML SYRINGE IV PRN ×4 (01:35→13:35)
[2018-06-01] MEDS: LIPASE 5,000/PROTEASE 17,000/AMYLASE 24,000 PO SCH ×3 (08:30→17:24)
[2018-06-01] MEDS ORDERED: PANTOPRAZOLE 40 MG TABLET PO SCH (09:00)
[2018-06-01] MEDS: ONDANSETRON 4 MG/2 ML VIAL IVP PRN ×2 (09:21→18:29)
[2018-06-01] MEDS ORDERED: HYDROcodone/APAP 5-325MG 1 EACH TAB PO PRN (15:44)
[2018-06-01] MEDS ORDERED: TEMAZEPAM 15 MG CAP PO PRN (15:44)
[2018-06-01] MEDS ORDERED: ALPRAZolam 0.25 MG TAB PO PRN (15:44)
[2018-06-01] MEDS: MORPHINE SULFATE ER 30 MG TABLET PO SCH ×2 (16:18→23:51)
--- NOTE | 2018-06-01 17:45 | HP ---
HISTORY AND PHYSICAL CHIEF COMPLAINT: Abdominal pain. HISTORY OF PRESENT ILLNESS: This 42-year-old woman with a past medical history of multiple medical problems, including Crohn's disease, history of pancreatitis, history of esophagitis, history of protein-calorie malnutrition, history of chronic abdominal pain, being followed by Dr. Dobbins in the outpatient setting, was admitted with complaints of severe abdominal pain. The patient also has been followed by [facility]. MRCP was done initially. The pain was felt in the anterior part of the abdomen which was radiating to both sides, and the patient was unable to keep anything down. Patient came to [facility] and was admitted for further evaluation and treatment. The patient also had a feeling of nausea. The patient is unable to hold any medications at this time. Multiple episodes of nonbilious emesis also noted. There is no history of any fever, rigor or chills at this time. PAST MEDICAL HISTORY: 1. History of chronic pancreatitis. 2. History of GI bleed. 3. History of GERD. 4. History of DJD. 5. History rheumatoid arthritis. HOME MEDICATIONS: 1. Imitrex 100 mg daily p.r.n. 2. Zofran 8 mg t.i.d. p.r.n. 3. Omeprazole 20 mg p.o. daily. 4. MSIR 15 mg b.i.d. p.r.n. 5. MS Contin 30 mg q.8. 6. Singulair 10 mg at bedtime. 7. Loratadine 10 mg daily. 8. Creon 72,000 p.o. before meals t.i.d. 9. Fosamax 70 mg Wednesdays. 10.Humira pen. ALLERGIES: METOCLOPRAMIDE. FAMILY HISTORY: History of myocardial infarction in the family. SOCIAL HISTORY: No history of smoking. No history of alcohol intake. REVIEW OF SYSTEMS: ENT: No diminished hearing. No diminished vision. CARDIOVASCULAR SYSTEM: No angina, palpitations. RESPIRATORY SYSTEM: No cough, hemoptysis. GI: As mentioned earlier. : No dysuria or retention. NERVOUS SYSTEM: No numbness, weakness. ALLERGY/IMMUNOLOGY: No asthma, hayfever. MUSCULOSKELETAL: As mentioned earlier. HEMATOLOGY/ONCOLOGY: No history of anemia. ENDOCRINE: No history of diabetes, hypothyroidism. CONSTITUTIONAL: As mentioned earlier. DERMATOLOGY: Negative. RHEUMATOLOGY: Negative. PSYCHIATRY: As mentioned earlier. PHYSICAL EXAMINATION: Patient alert and oriented x3. Pulse 53, blood pressure 118/68, respiration 18, temperature 98.6, pulse ox 98% on room air. HEENT: Conjunctivae normal. Oral mucosa moist. NECK: No jugular venous distention. No carotid bruit. No lymph node enlargement. CARDIOVASCULAR SYSTEM: S1, S2 muffled. RESPIRATORY SYSTEM: Breath sounds diminished at the bases. A few scattered rhonchi. No crackles. ABDOMEN: Soft. Mild diffuse tenderness in the epigastrium. No guarding. No rigidity. No mass palpable. LEGS: No edema. No swelling. NERVOUS SYSTEM: Higher functions as mentioned earlier. Moves all 4 limbs. No focal motor or sensory deficit. LYMPHATICS: No lymph node palpable in neck, axillae or groin. SKIN: No ulcer, rash, bleeding. LABS: WBC 11.9, hemoglobin 16.1, calcium 11. ASSESSMENT: 1. Abdominal pain with acute on chronic pancreatitis. 2. Acute vomiting and dehydration, present on admission. 3. Possible acute gastritis. 4. Increased white count. 5. Increased hemoglobin. 6. Increased calcium. 7. History of gastroesophageal reflux disease. 8. History of gastrointestinal bleed. 9. History of degenerative joint disease. 10.History of rheumatoid arthritis. 11.History of Crohn's disease. 12.History of nonspecific colitis. 13.History of esophagitis. 14.History of frequent urinary tract infections. 15.History of anemia with transfusions. 16.History of renal failure. 17.History of colonoscopies. 18.History of cholecystectomy. RECOMMENDATIONS AND DISCUSSION: In this 42-year-old woman who presented with multiple complex medical issues, we will monitor the patient closely, continue the current management, continue symptomatic treatment. The patient had multiple transfusions previously. Currently we will treat the patient empirically for pancreatitis with pain medications as well as DVT prophylaxis. See orders for further details. Resume the home medications. Gastroenterology consultation. Guarded prognosis because of multiple complex medical issues. Further recommendations to follow. Discussed with the patient, who understands and agrees. A copy of this dictation is being forwarded to Dr. Dobbins, who is the primary physician. MMODL / IJN: [id number] /
[2018-06-01] MEDS: HYDROmorphone 1 MG/ML 1 ML SYRINGE IVP PRN ×2 (18:29→22:56)
[2018-06-01] MEDS ORDERED: SCOPOLAMINE 1.5MG/72HR PATCH TRANSDERM SCH (20:00)
[2018-06-01] MEDS: HEPARIN SODIUM,PORCINE 5,000 UNIT/ML 1 ML VIAL SQ SCH (23:19)
[2018-06-01] MEDS: PANTOPRAZOLE 40 MG/10 ML VIAL IVP SCH (23:19)
[2018-06-01] MEDS: MONTELUKAST 10 MG TAB PO SCH (23:20)
[2018-06-02] MEDS: ONDANSETRON 4 MG/2 ML VIAL IVP PRN ×3 (04:31→18:16)
[2018-06-02] MEDS: HYDROmorphone 1 MG/ML 1 ML SYRINGE IVP PRN ×6 (04:31→21:09)
[2018-06-02] MEDS: SODIUM CHLORIDE 0.9% 1,000 ML IV SCH ×2 (04:31→17:36)
[2018-06-02] MEDS: LORATADINE 10 MG TAB PO SCH (08:14)
[2018-06-02] MEDS: MORPHINE SULFATE ER 30 MG TABLET PO SCH ×3 (08:14→23:51)
[2018-06-02] MEDS: HEPARIN SODIUM,PORCINE 5,000 UNIT/ML 1 ML VIAL SQ SCH ×2 (08:14→21:08)
[2018-06-02] MEDS: PANTOPRAZOLE 40 MG/10 ML VIAL IVP SCH ×2 (08:16→21:09)
[2018-06-02 10:36] VITALS: BMI 18.0
[2018-06-02 11:29] LABS: Basophils % (A) 0 %; Eosinophils # (A) 0.1 k/uL (0-0.7); Eosinophils % (A) 1 %; Lymphocytes # (A) 1.6 k/uL (1.0-4.8); Lymphocytes % (A) 30 %; MCH 30.4 pg (25.0-35.0); MCHC 31.8 g/dL (31.0-37.0); MCV 95.6 fL (80.0-100.0); Monocytes # (A) 0.3 k/uL (0-1.0); Monocytes % (A) 6 %; Neutrophils # (A) 3.2 k/uL (1.3-7.7); Neutrophils % (A) 60 %; Platelet Count 222 k/uL (150-450); RBC 3.98 m/uL (3.80-5.40); RDW 13.2 % (11.5-15.5); WBC 5.4 k/uL (3.8-10.6)
[2018-06-02 11:30] LABS: ALT 14 U/L (9-52); AST 16 U/L (14-36); Albumin 3.6 g/dL (3.5-5.0); Alkaline Phosphatase 44 U/L (38-126); Anion Gap 6 mmol/L; Blood Urea Nitrogen 15 mg/dL (7-17); Calcium 9.2 mg/dL (8.4-10.2); Carbon Dioxide 20 mmol/L (22-30); Chloride 111 mmol/L (98-107); Glucose 86 mg/dL (74-99); Lipase 145 U/L (23-300); Potassium 4.1 mmol/L (3.5-5.1); Sodium 137 mmol/L (137-145); Total Bilirubin 1.6 mg/dL (0.2-1.3); Total Protein 6.1 g/dL (6.3-8.2)
[2018-06-02 11:35] LABS: HGB 12.1 gm/dL (11.4-16.0)
--- NOTE | 2018-06-02 19:40 | PN ---
PROGRESS NOTE DATE OF SERVICE: 06/02/2018 This 43-year-old woman who was admitted with abdominal pain with acute on chronic pancreatitis is being closely monitored. No chest pain. No palpitations. No fever. The patient still has abdominal pain, unable to keep anything down. PHYSICAL EXAMINATION: Alert, oriented x3. Pulse is 55, blood pressure 100/62, respiration 17, temperature 98.7, pulse ox 99% on room air. HEENT: Conjunctivae normal. Oral mucosa moist. NECK: No jugular venous distention. No carotid bruit. No lymph node enlargement. CARDIOVASCULAR SYSTEM: S1, S2 muffled. RESPIRATORY SYSTEM: Breath sounds diminished at the bases. No rhonchi. No crackles. ABDOMEN: Soft. Mild diffuse tenderness. LEGS: No edema. No swelling. NERVOUS SYSTEM: No focal deficit. LABS: WBC 5.4, hemoglobin 12.1, sodium 137, potassium 4.1. ASSESSMENT: 1. Acute on chronic pancreatitis with severe abdominal pain. 2. Acute vomiting and dehydration, present on admission. 3. Acute gastritis. 4. Increased white count. 5. Increased hemoglobin. 6. Increased calcium. 7. History of gastroesophageal reflux disease. 8. History of gastrointestinal bleed. 9. History of degenerative joint disease. 10.History of rheumatoid arthritis. 11.History of Crohn's disease. 12.History of nonspecific colitis. 13.History of esophagitis. 14.History of frequent urinary tract infection. 15.History anemia with transfusions. 16.History of renal failure. 17.History of colonoscopy. 18.History of cholecystectomy. RECOMMENDATIONS AND DISCUSSION: I recommend to continue current medication, continue symptomatic treatment. Repeat labs. Pain medications. Advance diet if tolerated. Closely follow with Gastroenterology. Guarded prognosis. Further recommendations to follow. MMODL / IJN: [id number] /
[2018-06-02] MEDS: MONTELUKAST 10 MG TAB PO SCH (21:08)
[2018-06-03] MEDS: HYDROmorphone 1 MG/ML 1 ML SYRINGE IVP PRN ×5 (01:53→21:12)
[2018-06-03] MEDS: ONDANSETRON 4 MG/2 ML VIAL IVP PRN ×3 (01:53→23:40)
--- NOTE | 2018-06-03 06:17 | P.CONS ---
History of Present Illness - Reason for Consult Consult date: 06/02/18 Abdominal pain, chronic pancreatitis Requesting physician: Zenaida Cabrera - Chief Complaint Abdominal pain - History of Present Illness This is a 43-year-old female with a past medical history significant for cholecystectomy, gastroparesis, Crohn's disease currently on therapy with Humira and following up with an IBD specialist at the [facility], chronic pain syndrome and GERD who presents with complaints of abdominal pain, nausea and vomiting. The patient was recently seen at the [facility] where she had an MRCP performed which was negative for any biliary obstruction but did show signs of chronic pancreatitis. She has currently been referred for follow-up with a advanced endoscopist at [facility] for possible endoscopic ultrasound evaluation. She reports that she has continued to have symptoms of abdominal pain with associated nausea and vomiting each time she has been discharged from the hospital. She denies any use of tobacco or alcohol. She does take enzyme supplementation with meals. She reports that she has been unable to tolerate food and the vomiting is predominantly consistent of regurgitated food. Her amylase on presentation was found to be 52 and lipase was found to be 145. Review of Systems REVIEW OF SYSTEMS: CARDIO: Denies any chest pain or palpitations. PULMONARY: Denies any shortness of breath or wheezing. GENITOURINARY: No dysuria or hematuria. MUSCULOSKELETAL: No weakness reported. SKIN: Denies any new rashes or lesions, jaundice or pallor. PSYCHIATRIC: Denies any depression or anxiety. NEUROLOGY: Denies headache, denies any new focal deficits. EARS: No tinnitus, discharge or new hearing loss. NOSE: No discharge or congestion. EYES: No pain in eyes or change in vision. CONSTITUTIONAL: No recent weight loss. No fever, chills, night sweats. Past Medical History Past Medical History: Eye Disorder, GERD/Reflux, GI Bleed, Neurologic Disorder, Osteoarthritis (OA), Rheumatoid Arthritis (RA) Additional Past Medical History / Comment(s): Chronic pancreatitis, Crohn's disease, chronic esophagitis, blood in stool, diverticulosis, hx ulcers, frequent UTI'S, hx blood clots in bilateral arms pt states d/t picc lines, hx anemia with numerous transfusions, hx kidney failure from dehydration 12 yrs ago , neuropathy, cataracts. History of Any Multi-Drug Resistant Organisms: None Reported Past Surgical History: Cholecystectomy Additional Past Surgical History / Comment(s): colonsocopies, EGDs Past Anesthesia/Blood Transfusion Reactions: No Reported Reaction Additional Past Anesthesia/Blood Transfusion Reaction / Comm: Has had about 13 blood transfusions. Past Psychological History: No Psychological Hx Reported Smoking Status: Never smoker Past Alcohol Use History: None Reported Past Drug Use History: None Reported - Past Family History Father Family Medical History: Myocardial Infarction (MN) Additional Family Medical History / Comment(s): Father had drug abuse problem. He of a MN at the age of 61 yrs. Mother Family Medical History: Hypertension Additional Family Medical History / Comment(s): Mother is living. Medications and Allergies Home Medications Medication Instructions Recorded Confirmed Type SUMAtriptan SUCCINATE [Imitrex] 100 mg PO DAILY PRN 06/07/16 05/31/18 History Omeprazole 20 mg PO DAILY 08/05/16 05/31/18 History Ondansetron [Zofran ODT] 8 mg PO TID PRN 08/18/16 05/31/18 History Lipase/Protease/Amylase [Creon Dr 72,000 mg PO AC-TID 09/14/16 05/31/18 History 24,000 Units Capsule] Loratadine 10 mg PO DAILY 09/14/16 05/31/18 History Montelukast Sodium [Singulair] 10 mg PO HS 09/14/16 05/31/18 History Morphine Sulfate ER [Ms Contin] 30 mg PO Q8H 09/14/16 05/31/18 History Morphine Sulfate Ir [MSIR] 15 mg PO BID PRN 09/14/16 05/31/18 History Adalimumab [Humira Pen] 40 mg SQ [id number] 12/25/16 05/31/18 History Alendronate Sodium [Fosamax] 70 mg PO WE 05/31/18 05/31/18 History Allergies Allergy/AdvReac Type Severity Reaction Status Date / Time metoclopramide [From Reglan] AdvReac Intermediate Twitching Verified 05/31/18 21 :33 Physical Exam Vitals: Vital Signs Temp Pulse Resp BP Pulse Ox 06/02/18 23:00 97.6 F 52 L 20 107/64 97 06/02/18 15:35 55 L 17 06/02/18 14:44 98.7 F 17 100/63 99 06/02/18 08:18 55 L 110/59 06/02/18 06:24 98.5 F 67 16 93/52 94 L Intake and Output 06/02/18 06/02/18 06/03/18 14:59 22:59 06:59 Intake Total 100 600 Balance 100 600 Intake: Oral 100 600 Other: # Voids 2 1 Weight 47.627 kg 47.627 kg 47.627 kg On physical examination, patient appears comfortable in no apparent distress. HEAD: Normocephalic, atraumatic. EYES: No scleral icterus. No conjunctival injection. MOUTH: No lesions, tongue midline. NECK: Trachea midline, no gross abnormalities. CHEST: Clear to auscultation with no wheezing or rhonchi appreciated. HEART: Regular rate and rhythm. ABDOMEN: Soft, tender to deep palpation. Bowel sounds are positive. No organomegaly. No guarding or rigidity. EXTREMITIES: No pedal edema. SKIN: No rashes, no jaundice. NEUROLOGIC: Alert and oriented x3. No focal deficits. Results CBC & Chem 7: 06/02/18 10:43 06/02/18 10:43 Labs: Abnormal Lab Results - Last 24 Hours (Table) 06/02/18 Range/Units 10:43 Chloride 111 H (98-107) mmol/L Carbon Dioxide 20 L (22-30) mmol/L Total Bilirubin 1.6 H (0.2-1.3) mg/dL Total Protein 6.1 L (6.3-8.2) g/dL Assessment and Plan (1) Acute on chronic pancreatitis Narrative/Plan: Minimal elevation in amylase and lipase with presentation of acute worsening of abdominal pain with associated nausea and vomiting. Patient has presented with similar symptoms in the past. She recently underwent MRCP with findings consistent with chronic pancreatitis and has been referred to see an advanced endoscopist at the [facility] for evaluation for possible endoscopic ultrasound. Current Visit: No Status: Acute Code(s): K85.90 - ACUTE PANCREATITIS WITHOUT NECROSIS OR INFECTION, UNSP; K86.1 - OTHER CHRONIC PANCREATITIS SNOMED Code(s): 027477349 (2) Abdominal pain Current Visit: Yes Status: Acute Code(s): R10.9 - UNSPECIFIED ABDOMINAL PAIN SNOMED Code(s): 93798982 (3) Nausea & vomiting Current Visit: Yes Status: Acute Code(s): R11.2 - NAUSEA WITH VOMITING, UNSPECIFIED SNOMED Code(s): 95014482 (4) History of Crohn's disease Narrative/Plan: History of Crohn's disease currently on biologic therapy with Humira. The patient is unclear of involvement of her bowel but does report no prior surgeries and denies any history of fistulizing or stricturing disease. Current Visit: No Status: Acute Code(s): Z87.19 - PERSONAL HISTORY OF OTHER DISEASES OF THE DIGESTIVE SYSTEM SNOMED Code(s): 640885954525599 Plan: Supportive care Fluid hydration Pain control Diet as tolerated Enzyme supplementation with meals Follow-up with [facility], likely for scheduling of endoscopic ultrasound Continue Humira therapy for treatment of Crohn's disease Thank you for allowing us to participate in the care of this patient we will continue to follow
[2018-06-03] MEDS: SODIUM CHLORIDE 0.9% 1,000 ML IV SCH ×2 (07:28→21:19)
[2018-06-03 08:43] LABS: ALT 22 U/L (9-52); AST 18 U/L (14-36); Albumin 3.8 g/dL (3.5-5.0); Alkaline Phosphatase 43 U/L (38-126); Anion Gap 7 mmol/L; Blood Urea Nitrogen 10 mg/dL (7-17); Calcium 9.1 mg/dL (8.4-10.2); Carbon Dioxide 21 mmol/L (22-30); Chloride 115 mmol/L (98-107); Glucose 86 mg/dL (74-99); Lipase 157 U/L (23-300); Potassium 3.9 mmol/L (3.5-5.1); Sodium 143 mmol/L (137-145); Total Bilirubin 1.3 mg/dL (0.2-1.3); Total Protein 6.3 g/dL (6.3-8.2)
[2018-06-03] MEDS: MORPHINE SULFATE ER 30 MG TABLET PO SCH ×3 (08:50→23:38)
[2018-06-03 08:51] LABS: Basophils % (A) 0 %; Eosinophils # (A) 0.1 k/uL (0-0.7); Eosinophils % (A) 1 %; HCT 40.8 % (34.0-46.0); Lymphocytes # (A) 2.1 k/uL (1.0-4.8); Lymphocytes % (A) 45 %; MCH 30.2 pg (25.0-35.0); MCHC 31.8 g/dL (31.0-37.0); MCV 95.1 fL (80.0-100.0); Mean Platelet Volume 7.3; Monocytes # (A) 0.3 k/uL (0-1.0); Monocytes % (A) 7 %; Neutrophils % (A) 43 %; Platelet Count 227 k/uL (150-450); RBC 4.29 m/uL (3.80-5.40); RDW 13.1 % (11.5-15.5); WBC 4.7 k/uL (3.8-10.6)
[2018-06-03] MEDS: PANTOPRAZOLE 40 MG/10 ML VIAL IVP SCH ×2 (08:53→21:18)
[2018-06-03] MEDS: LORATADINE 10 MG TAB PO SCH (08:54)
[2018-06-03] MEDS: HEPARIN SODIUM,PORCINE 5,000 UNIT/ML 1 ML VIAL SQ SCH ×2 (08:54→21:17)
--- NOTE | 2018-06-03 19:32 | PN ---
PROGRESS NOTE DATE OF SERVICE: 06/03/2018 This 43-year-old woman is admitted with abdominal pain and had possible acute on chronic pancreatitis. The patient also was evaluated at the [facility]. No chest pain. No palpitations. No fever. Apparently [facility] Gastroenterology Department is planning endoscopic ultrasound. EXAM: Alert and oriented time three. Pulse 46, blood pressure is 101/59, respiration 20, temperature 97.2. Pulse ox 100 percent on room air. HEENT: Conjunctivae normal. NECK: No jugular venous distention. CARDIOVASCULAR: S1, S2 muffled. RESPIRATORY: Breath sounds diminished in the bases. No rhonchi. No crackles. ABDOMEN is soft. Mild diffuse discomfort. LEGS: No edema. No swelling. CENTRAL NERVOUS SYSTEM: No focal deficits. LABS: WBC 4.2, hemoglobin 13, CO2 is 21. Sodium 143. ASSESSMENT: 1. Acute on chronic pancreatitis with severe abdominal pain. 2. Acute vomiting and dehydration present on admission. 3. Acute gastritis. 4. Increased WBC. 5. Increased hemoglobin. 6. Increased calcium. 7. History of gastroesophageal reflux disease. 8. History of gastrointestinal bleed. 9. History of degenerative joint disease. 10.History of rheumatoid arthritis. 11.History of Crohn's disease. 12.History of nonspecific colitis. 13.History of esophagitis. 14.History of frequent urinary tract infections. 15.History of anemia with transfusions. 16.History of renal failure. 17.History of colonoscopy. 18.History of cholecystectomy. RECOMMENDATIONS AND DISCUSSION: Recommend to continue current medications. Monitoring and symptomatic treatment. Otherwise, at this time, I recommend to continue with current medications. Advance diet. Repeat labs in the morning. Increase ambulation. Closely follow with Gastroenterology. Guarded prognosis. Further recommendations to follow. MMODL / IJN: [id number] /
[2018-06-03] MEDS: MONTELUKAST 10 MG TAB PO SCH (21:18)
[2018-06-04] MEDS: HYDROmorphone 1 MG/ML 1 ML SYRINGE IVP PRN ×3 (01:35→10:50)
[2018-06-04] MEDS: MORPHINE SULFATE ER 30 MG TABLET PO SCH (07:43)
[2018-06-04] MEDS: PANTOPRAZOLE 40 MG/10 ML VIAL IVP SCH (07:44)
[2018-06-04] MEDS: LORATADINE 10 MG TAB PO SCH (07:44)
[2018-06-04] MEDS: HEPARIN SODIUM,PORCINE 5,000 UNIT/ML 1 ML VIAL SQ SCH (07:44)
[2018-06-04 07:46] VITALS: BP 108/67; PULSE 50; RESP 18; TEMP 98
[2018-06-04 09:02] LABS: Basophils % (A) 0 %; Eosinophils # (A) 0.1 k/uL (0-0.7); Eosinophils % (A) 2 %; HCT 40.6 % (34.0-46.0); HGB 12.9 gm/dL (11.4-16.0); Lymphocytes # (A) 1.5 k/uL (1.0-4.8); Lymphocytes % (A) 36 %; MCH 30.1 pg (25.0-35.0); MCHC 31.8 g/dL (31.0-37.0); MCV 94.7 fL (80.0-100.0); Monocytes # (A) 0.3 k/uL (0-1.0); Monocytes % (A) 7 %; Neutrophils # (A) 2.3 k/uL (1.3-7.7); Neutrophils % (A) 54 %; Platelet Count 189 k/uL (150-450); RBC 4.29 m/uL (3.80-5.40); RDW 13.2 % (11.5-15.5); WBC 4.3 k/uL (3.8-10.6)
[2018-06-04 09:11] LABS: ALT 21 U/L (9-52); AST 17 U/L (14-36); Albumin 3.9 g/dL (3.5-5.0); Alkaline Phosphatase 42 U/L (38-126); Anion Gap 7 mmol/L; Blood Urea Nitrogen 8 mg/dL (7-17); Calcium 9.2 mg/dL (8.4-10.2); Carbon Dioxide 21 mmol/L (22-30); Chloride 115 mmol/L (98-107); Glucose 96 mg/dL (74-99); Lipase 121 U/L (23-300); Potassium 3.7 mmol/L (3.5-5.1); Sodium 143 mmol/L (137-145); Total Bilirubin 1.2 mg/dL (0.2-1.3); Total Protein 6.6 g/dL (6.3-8.2)
[2018-06-04] MEDS: ONDANSETRON 4 MG/2 ML VIAL IVP PRN (09:24)
[2018-06-04] MEDS: SODIUM CHLORIDE 0.9% 1,000 ML IV SCH (09:26)
--- NOTE | 2018-06-05 00:33 | DS ---
DISCHARGE SUMMARY DATE OF SERVICE: 06/04/2018 FINAL DIAGNOSES: 1. Acute on chronic pancreatitis. 2. Severe abdominal pain. 3. Acute vomiting and dehydration, present on admission. 4. Acute gastritis. 5. Increased WBC. 6. Increased hemoglobin. 7. Increased calcium. 8. History of gastroesophageal reflux disease. 9. History of gastrointestinal bleed. 10.History of degenerative joint disease. 11.History of rheumatoid arthritis. 12.History of Crohn's disease. 13.History of nonspecific colitis. 14.History of esophagitis. 15.History of frequent urinary tract infections. 16.History anemia with transfusion. 17.History of renal failure. 18.History of colonoscopy. 19.History of cholecystectomy. DISCHARGE CONDITION: The patient will be discharged in stable condition with guarded prognosis. HISTORY OF PRESENT ILLNESS: The patient is a 43-year-old woman with a past medical history of multiple medical problems, admitted with abdominal pain with acute on chronic pancreatitis. Gastroenterology saw the patient. On physical exam, the patient is stable. Cardiovascular, S1, S2. Abdomen soft. No masses. Nervous system, no focal deficits. Recommend the patient followup closely with Dr. Dobbins as well as multiple consultants including Gastroenterology. DISCHARGE INSTRUCTIONS: 1. Full liquids, advance to soft diet as tolerated. 2. Activity limited. MEDICATIONS: 1. Humira Pen 40 mg for 14 days. 2. Creon 2400 t.i.d. 3. Fosamax 70 mg p.o. at bedtime. 4. loratidine 10 mg. 5. Singular 10 mg at bedtime. 6. MS Contin 30 mg every 8 hours. 7. MSIR 50 mg b.i.d. 8. Omeprazole 20 mg daily. 9. Zofran 8 mg t.i.d. p.r.n. 10.Imitrex 100 mg daily p.r.n. CONDITION: Stable, guarded prognosis. FOLLOWUP: 1. Dr. Dobbins. 2. Followup at [facility]. MMODL / IJN: [id number] / MTDD
== END 2018-06-04 14:08 | disposition home or self-care (01) ==
LOC: EC 20:37 → 4MS4W 23:39
PROVIDERS: ADMIT Internal Medicine; ATTEND Internal Medicine
DX: K85.90 Acute pancreatitis without necrosis or infection, unspecified (principal); K86.1 Other chronic pancreatitis; K50.90 Crohn's disease, unspecified, without complications; E86.0 Dehydration; K29.00 Acute gastritis without bleeding; K31.84 Gastroparesis; G89.4 Chronic pain syndrome; E83.52 Hypercalcemia; D58.2 Other hemoglobinopathies; K57.90 Diverticulosis of intestine, part unspecified, without perforation or abscess without bleeding; K21.9 Gastro-esophageal reflux disease without esophagitis; M19.90 Unspecified osteoarthritis, unspecified site; M06.9 Rheumatoid arthritis, unspecified; D64.9 Anemia, unspecified; H26.9 Unspecified cataract; G62.9 Polyneuropathy, unspecified; Z79.83 Long term (current) use of bisphosphonates; Z79.891 Long term (current) use of opiate analgesic; Z79.899 Other long term (current) drug therapy; Z88.8 Allergy status to other drugs, medicaments and biological substances; Z90.49 Acquired absence of other specified parts of digestive tract; Z87.19 Personal history of other diseases of the digestive system; Z87.440 Personal history of urinary (tract) infections; Z87.448 Personal history of other diseases of urinary system; Z82.49 Family history of ischemic heart disease and other diseases of the circulatory system; Z81.3 Family history of other psychoactive substance abuse and dependence
CPT/HCPCS: 96376 ×5; 96361 ×5; 96372 ×4; 96375 ×2; 96374; 99284; 36415; 80053 ×4; 82150 ×2; 83690 ×4; 85025 ×4; 81001; 81025; G0378 ×5; J2270 ×2; J1644 ×4; J2405 ×5; J1170 ×5; C9113 ×4

== ENCOUNTER 2018-06-07 15:40 | Emergency (ER) | payer OTHER ==
[2018-06-07] MEDS ORDERED: MORPHINE SULFATE 4 MG/ML SYRINGE IV STA ×2 (16:09→18:30)
[2018-06-07] MEDS ORDERED: SODIUM CHLORIDE 0.9% 1,000 ML IV STA ×2 (16:09)
[2018-06-07] MEDS ORDERED: ONDANSETRON 4 MG/2 ML VIAL IVP STA (16:09)
--- NOTE | 2018-06-07 16:12 | ED ---
General Adult HPI - General Chief complaint: Abdominal Pain Stated complaint: abd pain Time Seen by Provider: 06/07/18 16:04 Source: patient, RN notes reviewed Mode of arrival: ambulatory Limitations: no limitations - History of Present Illness Initial comments: Patient's a 43-year-old female with significant past medical history for pancreatitis, presented to the emergency room today with a chief complaint of increased abdominal pain consistent with a pancreatitis that she's had in the past. She does admit that she began having some discomfort in the abdomen 4 days ago. She states that has increased with symptoms of nausea vomiting started last night and pain. She states pain is located in epigastric and left upper quadrants consistent with pancreatitis. She does admit that she follows up through the [facility]. She denies any other complaints or symptoms. Patient denies any recent fever, chills, shortness of breath, chest pain, numbness or tingling, headaches or visual changes, or any other complaints. - Related Data Home Medications Medication Instructions Recorded Confirmed SUMAtriptan SUCCINATE [Imitrex] 100 mg PO DAILY PRN 06/07/16 06/07/18 Omeprazole 20 mg PO DAILY 08/05/16 06/07/18 Ondansetron [Zofran ODT] 8 mg PO TID PRN 08/18/16 06/07/18 Lipase/Protease/Amylase [Creon Dr 72,000 mg PO AC-TID 09/14/16 06/07/18 24,000 Units Capsule] Loratadine 10 mg PO DAILY 09/14/16 06/07/18 Montelukast Sodium [Singulair] 10 mg PO HS 09/14/16 06/07/18 Morphine Sulfate ER [Ms Contin] 30 mg PO Q8H 09/14/16 06/07/18 Morphine Sulfate Ir [MSIR] 15 mg PO BID PRN 09/14/16 06/07/18 Adalimumab [Humira Pen] 40 mg SQ [id number] 12/25/16 06/07/18 Alendronate Sodium [Fosamax] 70 mg PO WE 05/31/18 06/07/18 Allergies Allergy/AdvReac Type Severity Reaction Status Date / Time metoclopramide [From Reglan] AdvReac Intermediate Twitching Verified 06/07/18 16 :14 Review of Systems ROS Statement: Those systems with pertinent positive or pertinent negative responses have been documented in the HPI. ROS Other: All systems not noted in ROS Statement are negative. Past Medical History Past Medical History: Eye Disorder, GERD/Reflux, GI Bleed, Neurologic Disorder, Osteoarthritis (OA), Rheumatoid Arthritis (RA) Additional Past Medical History / Comment(s): Chronic pancreatitis, Crohn's disease, chronic esophagitis, blood in stool, diverticulosis, hx ulcers, frequent UTI'S, hx blood clots in bilateral arms pt states d/t picc lines, hx anemia with numerous transfusions, hx kidney failure from dehydration 12 yrs ago , neuropathy, cataracts. History of Any Multi-Drug Resistant Organisms: None Reported Past Surgical History: Cholecystectomy Additional Past Surgical History / Comment(s): colonsocopies, EGDs Past Anesthesia/Blood Transfusion Reactions: No Reported Reaction Additional Past Anesthesia/Blood Transfusion Reaction / Comment(s): Has had about 13 blood transfusions. Past Psychological History: No Psychological Hx Reported Smoking Status: Never smoker Past Alcohol Use History: None Reported Past Drug Use History: None Reported - Past Family History Father Family Medical History: Myocardial Infarction (ME) Additional Family Medical History / Comment(s): Father had drug abuse problem. He of a ME at the age of 61 yrs. Mother Family Medical History: Hypertension Additional Family Medical History / Comment(s): Mother is living. General Exam - General Exam Comments Initial Comments: General: The patient is awake and alert, in no distress, and does not appear acutely ill. Eye: There is normal conjunctiva bilaterally. No signs of icterus. Ears, nose, mouth and throat: There are moist mucous membranes and no oral lesions. Neck: The neck is supple, there is no tenderness or JVD. Cardiovascular: There is a regular rate and rhythm. No murmur, rub or gallop is appreciated. Respiratory: Lungs are clear to auscultation, respirations are non-labored, breath sounds are equal. No wheezes, stridor, rales, or rhonchi. Gastrointestinal: Abdomen soft on palpation. Tender epigastric and left upper quadrants. No rebound, guarding or CVA tenderness. Musculoskeletal: Normal ROM, no tenderness. Neurological: A&O x 3. CN II-XII intact, There are no obvious motor or sensory deficits. Coordination appears grossly intact. Speech is normal. Skin: Skin is warm and dry and no rashes or lesions are noted. Psychiatric: Cooperative, appropriate mood & affect, normal judgment. Limitations: no limitations Course Vital Signs 06/07/18 06/07/18 06/07/18 15:42 17:01 18:02 Temperature 98.6 F Pulse Rate 74 68 84 Respiratory 16 20 22 Rate Blood Pressure 116/61 116/90 122/73 O2 Sat by Pulse 100 97 95 Oximetry Medical Decision Making - Medical Decision Making Patient reexamined. Missed a history of chronic pancreatitis. States she has been following up with [facility]. Patient's lipase is 306 here today. Patient states his symptoms are consistent with palpitations that she's had in past. She denies any different or new. Patient will be discharged home to follow-up with her specialist. She does have nausea medicine at home. She is advised return for any other concerns. - Lab Data Result diagrams: 06/07/18 16:40 06/07/18 16:40 Lab Results 06/07/18 06/07/18 06/07/18 Range/Units 16:31 16:40 16:40 WBC 8.1 (3.8-10.6) k/uL RBC 4.60 (3.80-5.40) m/uL Hgb 14.1 (11.4-16.0) gm/dL Hct 43.6 (34.0-46.0) % MCV 94.8 (80.0-100.0) fL MCH 30.6 (25.0-35.0) pg MCHC 32.3 (31.0-37.0) g/dL RDW 13.5 (11.5-15.5) % Plt Count 226 (150-450) k/uL Neutrophils % 76 % Lymphocytes % 17 % Monocytes % 5 % Eosinophils % 1 % Basophils % 0 % Neutrophils # 6.1 (1.3-7.7) k/uL Lymphocytes # 1.4 (1.0-4.8) k/uL Monocytes # 0.4 (0-1.0) k/uL Eosinophils # 0.0 (0-0.7) k/uL Basophils # 0.0 (0-0.2) k/uL Sodium 144 (137-145) mmol/L Potassium 4.0 (3.5-5.1) mmol/L Chloride 109 H (98-107) mmol/L Carbon Dioxide 27 (22-30) mmol/L Anion Gap 8 mmol/L BUN 6 L (7-17) mg/dL Creatinine 0.63 (0.52-1.04) mg/dL Est GFR (CKD-EPI)AfAm >90 (>60 ml/min/1.73 sqM) Est GFR (CKD-EPI)NonAf >90 (>60 ml/min/1.73 sqM) Glucose 89 (74-99) mg/dL Calcium 9.8 (8.4-10.2) mg/dL Total Bilirubin 0.5 (0.2-1.3) mg/dL AST 15 (14-36) U/L ALT 21 (9-52) U/L Alkaline Phosphatase 57 (38-126) U/L Total Protein 7.0 (6.3-8.2) g/dL Albumin 4.4 (3.5-5.0) g/dL Amylase 68 (30-110) U/L Lipase 306 H (23-300) U/L Urine Color Yellow Urine Appearance Clear (Clear) Urine pH 7.5 (5.0-8.0) Ur Specific Stella 1.010 (1.001-1.035) Urine Protein Negative (Negative) Urine Glucose (UA) Negative (Negative) Urine Ketones Negative (Negative) Urine Blood Trace H (Negative) Urine Nitrite Negative (Negative) Urine Bilirubin Negative (Negative) Urine Urobilinogen <2.0 (<2.0) mg/dL Ur Leukocyte Esterase Negative (Negative) Urine RBC 6 H (0-5) /hpf Urine WBC <1 (0-5) /hpf Ur Squamous Epith Cells 4 (0-4) /hpf Urine Bacteria Rare H (None) /hpf Urine Mucus Rare H (None) /hpf Disposition Clinical Impression: Chronic pancreatitis Disposition: HOME SELF-CARE Condition: Good Instructions: Pancreatitis (ED) Additional Instructions: Please use medication as discussed. Please follow-up with family doctor in the next 2 days of symptoms have not improved. Please return to emergency room if the symptoms increase or worsen or for any other concerns. Is patient prescribed a controlled substance at d/c from ED?: No Referrals: Derek Dobbins MD [Primary Care Provider] - 1-2 days Time of Disposition: 18:31
[2018-06-07 16:44] LABS: Appearance,Urine Clear (Clear); Bacteria,Urine Rare /hpf; Bilirubin,Urine Negative (Negative); Blood,Urine Trace (Negative); Color,Urine Yellow; Glucose,Urine (UA) Negative (Negative); Ketones,Urine Negative (Negative); Leukocyte Esterase,Urine Negative (Negative); Mucus,Urine Rare /hpf; Nitrite,Urine Negative (Negative); PH, Urine 7.5 (5.0-8.0); Protein,Urine Negative (Negative); RBC,Urine 6 /hpf (0-5); Squamous Epithelial Cell,Urine 4 /hpf (0-4); Urobilinogen,Urine <2.0 mg/dL (<2.0); WBC,Urine <1 /hpf (0-5)
[2018-06-07 17:05] LABS: Basophils % (A) 0 %; Eosinophils % (A) 1 %; HCT 43.6 % (34.0-46.0); HGB 14.1 gm/dL (11.4-16.0); Lymphocytes # (A) 1.4 k/uL (1.0-4.8); Lymphocytes % (A) 17 %; MCH 30.6 pg (25.0-35.0); MCHC 32.3 g/dL (31.0-37.0); MCV 94.8 fL (80.0-100.0); Mean Platelet Volume 7.2; Monocytes # (A) 0.4 k/uL (0-1.0); Monocytes % (A) 5 %; Neutrophils # (A) 6.1 k/uL (1.3-7.7); Neutrophils % (A) 76 %; Platelet Count 226 k/uL (150-450); RDW 13.5 % (11.5-15.5); WBC 8.1 k/uL (3.8-10.6)
[2018-06-07 17:17] LABS: ALT 21 U/L (9-52); AST 15 U/L (14-36); Albumin 4.4 g/dL (3.5-5.0); Alkaline Phosphatase 57 U/L (38-126); Amylase 68 U/L (30-110); Anion Gap 8 mmol/L; Blood Urea Nitrogen 6 mg/dL (7-17); Calcium 9.8 mg/dL (8.4-10.2); Carbon Dioxide 27 mmol/L (22-30); Chloride 109 mmol/L (98-107); Glucose 89 mg/dL (74-99); Lipase 306 U/L (23-300); Sodium 144 mmol/L (137-145); Total Bilirubin 0.5 mg/dL (0.2-1.3)
[2018-06-07 19:42] VITALS: BP 126/86; PULSE 77; RESP 18; TEMP 98.1
== END 2018-06-07 19:10 | disposition home or self-care (01) ==
LOC: EC 15:40
DX: K86.1 Other chronic pancreatitis (principal); K21.9 Gastro-esophageal reflux disease without esophagitis; M19.90 Unspecified osteoarthritis, unspecified site; M06.9 Rheumatoid arthritis, unspecified; Z79.891 Long term (current) use of opiate analgesic; Z79.899 Other long term (current) drug therapy; Z88.8 Allergy status to other drugs, medicaments and biological substances; Z90.49 Acquired absence of other specified parts of digestive tract
CPT/HCPCS: 36415; 80053; 82150; 83690; 85025; 81001; 99284; 96374; 96375; 96376; 96361 ×2; J2270; J2405

== ENCOUNTER 2018-06-08 09:25 | Emergency (ER) | payer OTHER ==
[2018-06-08 09:35] VITALS: TEMP 98.1
[2018-06-08] MEDS ORDERED: PANTOPRAZOLE 40 MG/10 ML VIAL IVP STA (09:40)
[2018-06-08] MEDS ORDERED: ONDANSETRON 4 MG/2 ML VIAL IVP STA (09:40)
[2018-06-08] MEDS ORDERED: SODIUM CHLORIDE 0.9% 1,000 ML IV STA (09:40)
[2018-06-08] MEDS ORDERED: MORPHINE SULFATE 4 MG/ML SYRINGE IV STA (09:40)
--- NOTE | 2018-06-08 10:45 | ED ---
Abdominal Pain HPI - General Chief Complaint: Abdominal Pain Stated Complaint: abd pain, pancreatitis Time Seen by Provider: 06/08/18 09:40 Source: patient, RN notes reviewed, old records reviewed Mode of arrival: ambulatory Limitations: no limitations - History of Present Illness Initial Comments: This is a 43-year-old female the ER for evasive severe abdominal pain severe nausea severe vomiting. History of pancreatitis history of otitis and Crohn's. Patient has a long calm. Medical history of abdominal disease, patient has had multiple recent ER visits for similar as well as evaluations at [facility] which have so far proven fruitless. states she cannot keep any medication down, keep food down is losing weight and has severe pain MD Complaint: abdominal pain -: days(s), week(s), month(s), year(s) Location: diffuse, epigastric Radiation: epigastric, back Migration to: bilateral flank Severity: severe Severity scale (1-10): 10 Quality: cramping, stabbing, aching Consistency: intermittent Improves With: nothing Worsens With: eating Associated Symptoms: nausea, vomiting, diarrhea - Related Data Home Medications Medication Instructions Recorded Confirmed SUMAtriptan SUCCINATE [Imitrex] 100 mg PO DAILY PRN 06/07/16 06/08/18 Omeprazole 20 mg PO DAILY 08/05/16 06/08/18 Ondansetron [Zofran ODT] 8 mg PO TID PRN 08/18/16 06/08/18 Lipase/Protease/Amylase [Creon Dr 72,000 mg PO AC-TID 09/14/16 06/08/18 24,000 Units Capsule] Loratadine 10 mg PO DAILY 09/14/16 06/08/18 Montelukast Sodium [Singulair] 10 mg PO HS 09/14/16 06/08/18 Morphine Sulfate ER [Ms Contin] 30 mg PO Q8H 09/14/16 06/08/18 Morphine Sulfate Ir [MSIR] 15 mg PO BID PRN 09/14/16 06/08/18 Adalimumab [Humira Pen] 40 mg SQ [id number] 12/25/16 06/08/18 Alendronate Sodium [Fosamax] 70 mg PO WE 05/31/18 06/08/18 Allergies Allergy/AdvReac Type Severity Reaction Status Date / Time metoclopramide [From Reglan] AdvReac Intermediate Twitching Verified 06/08/18 11 :27 Review of Systems ROS Statement: Those systems with pertinent positive or pertinent negative responses have been documented in the HPI. ROS Other: All systems not noted in ROS Statement are negative. Past Medical History Past Medical History: Eye Disorder, GERD/Reflux, GI Bleed, Neurologic Disorder, Osteoarthritis (OA), Rheumatoid Arthritis (RA) Additional Past Medical History / Comment(s): Chronic pancreatitis, Crohn's disease, chronic esophagitis, blood in stool, diverticulosis, hx ulcers, frequent UTI'S, hx blood clots in bilateral arms pt states d/t picc lines, hx anemia with numerous transfusions, hx kidney failure from dehydration 12 yrs ago , neuropathy, cataracts. History of Any Multi-Drug Resistant Organisms: None Reported Past Surgical History: Cholecystectomy Additional Past Surgical History / Comment(s): colonsocopies, EGDs Past Anesthesia/Blood Transfusion Reactions: No Reported Reaction Additional Past Anesthesia/Blood Transfusion Reaction / Comment(s): Has had about 13 blood transfusions. Past Psychological History: No Psychological Hx Reported Smoking Status: Never smoker Past Alcohol Use History: None Reported Past Drug Use History: None Reported - Past Family History Father Family Medical History: Myocardial Infarction (SD) Additional Family Medical History / Comment(s): Father had drug abuse problem. He of a SD at the age of 61 yrs. Mother Family Medical History: Hypertension Additional Family Medical History / Comment(s): Mother is living. General Exam Limitations: no limitations General appearance: alert, in no apparent distress, anxious Head exam: Present: atraumatic, normocephalic, normal inspection Eye exam: Present: normal appearance, PERRL, EOMI. Absent: scleral icterus, conjunctival injection, periorbital swelling ENT exam: Present: normal exam, mucous membranes moist Neck exam: Present: normal inspection. Absent: tenderness, meningismus, lymphadenopathy Respiratory exam: Present: normal lung sounds bilaterally. Absent: respiratory distress, wheezes, rales, rhonchi, stridor Cardiovascular Exam: Present: regular rate, normal rhythm, normal heart sounds. Absent: systolic murmur, diastolic murmur, rubs, gallop, clicks GI/Abdominal exam: Present: soft, normal bowel sounds. Absent: distended, tenderness, guarding, rebound, rigid Extremities exam: Present: normal inspection, full ROM, normal capillary refill. Absent: tenderness, pedal edema, joint swelling, calf tenderness Back exam: Present: normal inspection Neurological exam: Present: alert, oriented X3, CN II-XII intact Psychiatric exam: Present: normal affect, normal mood Skin exam: Present: warm, dry, intact, normal color. Absent: rash Course Vital Signs 06/08/18 09:30 Temperature 98.1 F Pulse Rate 69 Respiratory 18 Rate Blood Pressure 140/79 O2 Sat by Pulse 100 Oximetry - Reevaluation(s) Reevaluation #1: 06/08/18 10:45 Medical record and prior ER visits are reviewed including lab work from yesterday's visit Reevaluation #2: 06/08/18 10:45 Patient does have improved pain control symptom control currently no active vomiting Reevaluation #3: 06/08/18 13:49 Spoke with GI on-call as well as admitting physician, there is nothing we can offer this patient as an admission Medical Decision Making - Medical Decision Making 41 female the ER for evasive abdominal pain. Severe abdominal pain. Chronic abdominal pain. Patient can be discharged home. Follow-up with GI admission [facility] - Lab Data Result diagrams: 06/08/18 11:05 06/08/18 11:05 Lab Results 06/08/18 06/08/18 06/08/18 Range/Units 11:05 11:05 11:30 WBC 10.3 (3.8-10.6) k/uL RBC 4.77 (3.80-5.40) m/uL Hgb 14.3 (11.4-16.0) gm/dL Hct 45.3 (34.0-46.0) % MCV 95.1 (80.0-100.0) fL MCH 30.1 (25.0-35.0) pg MCHC 31.6 (31.0-37.0) g/dL RDW 13.5 (11.5-15.5) % Plt Count 292 (150-450) k/uL Neutrophils % 67 % Lymphocytes % 23 % Monocytes % 6 % Eosinophils % 1 % Basophils % 0 % Neutrophils # 6.9 (1.3-7.7) k/uL Lymphocytes # 2.4 (1.0-4.8) k/uL Monocytes # 0.6 (0-1.0) k/uL Eosinophils # 0.1 (0-0.7) k/uL Basophils # 0.0 (0-0.2) k/uL Sodium 143 (137-145) mmol/L Potassium 4.0 (3.5-5.1) mmol/L Chloride 110 H (98-107) mmol/L Carbon Dioxide 26 (22-30) mmol/L Anion Gap 7 mmol/L BUN 6 L (7-17) mg/dL Creatinine 0.63 (0.52-1.04) mg/dL Est GFR (CKD-EPI)AfAm >90 (>60 ml/min/1.73 sqM) Est GFR (CKD-EPI)NonAf >90 (>60 ml/min/1.73 sqM) Glucose 94 (74-99) mg/dL Calcium 9.8 (8.4-10.2) mg/dL Total Bilirubin 0.8 (0.2-1.3) mg/dL AST 16 (14-36) U/L ALT 16 (9-52) U/L Alkaline Phosphatase 59 (38-126) U/L Total Protein 7.1 (6.3-8.2) g/dL Albumin 4.3 (3.5-5.0) g/dL Amylase 103 (30-110) U/L Lipase 596 H (23-300) U/L Urine Color Urine Appearance (Clear) Urine pH (5.0-8.0) Ur Specific Mcnary (1.001-1.035) Urine Protein (Negative) Urine Glucose (UA) (Negative) Urine Ketones (Negative) Urine Blood (Negative) Urine Nitrite (Negative) Urine Bilirubin (Negative) Urine Urobilinogen (<2.0) mg/dL Ur Leukocyte Esterase (Negative) Urine RBC (0-5) /hpf Urine WBC (0-5) /hpf Ur Squamous Epith Cells (0-4) /hpf Urine Bacteria (None) /hpf Urine Mucus (None) /hpf Urine HCG, Qual Not Detected (Not Detectd) 06/08/18 Range/Units 11:30 WBC (3.8-10.6) k/uL RBC (3.80-5.40) m/uL Hgb (11.4-16.0) gm/dL Hct (34.0-46.0) % MCV (80.0-100.0) fL MCH (25.0-35.0) pg MCHC (31.0-37.0) g/dL RDW (11.5-15.5) % Plt Count (150-450) k/uL Neutrophils % % Lymphocytes % % Monocytes % % Eosinophils % % Basophils % % Neutrophils # (1.3-7.7) k/uL Lymphocytes # (1.0-4.8) k/uL Monocytes # (0-1.0) k/uL Eosinophils # (0-0.7) k/uL Basophils # (0-0.2) k/uL Sodium (137-145) mmol/L Potassium (3.5-5.1) mmol/L Chloride (98-107) mmol/L Carbon Dioxide (22-30) mmol/L Anion Gap mmol/L BUN (7-17) mg/dL Creatinine (0.52-1.04) mg/dL Est GFR (CKD-EPI)AfAm (>60 ml/min/1.73 sqM) Est GFR (CKD-EPI)NonAf (>60 ml/min/1.73 sqM) Glucose (74-99) mg/dL Calcium (8.4-10.2) mg/dL Total Bilirubin (0.2-1.3) mg/dL AST (14-36) U/L ALT (9-52) U/L Alkaline Phosphatase (38-126) U/L Total Protein (6.3-8.2) g/dL Albumin (3.5-5.0) g/dL Amylase (30-110) U/L Lipase (23-300) U/L Urine Color Yellow Urine Appearance Cloudy H (Clear) Urine pH 6.5 (5.0-8.0) Ur Specific Mcnary 1.013 (1.001-1.035) Urine Protein Trace H (Negative) Urine Glucose (UA) Negative (Negative) Urine Ketones Negative (Negative) Urine Blood Negative (Negative) Urine Nitrite Negative (Negative) Urine Bilirubin Negative (Negative) Urine Urobilinogen <2.0 (<2.0) mg/dL Ur Leukocyte Esterase Negative (Negative) Urine RBC 2 (0-5) /hpf Urine WBC 2 (0-5) /hpf Ur Squamous Epith Cells 20 H (0-4) /hpf Urine Bacteria Rare H (None) /hpf Urine Mucus Moderate H (None) /hpf Urine HCG, Qual (Not Detectd) Disposition Clinical Impression: Chronic pancreatitis, Chronic abdominal pain, Crohns disease, History of pancreatitis Disposition: HOME SELF-CARE Condition: Good Instructions: Abdominal Pain (ED) Is patient prescribed a controlled substance at d/c from ED?: No Referrals: Derek Dobbins MD [Primary Care Provider] - 1-2 days
[2018-06-08 11:38] LABS: Basophils % (A) 0 %; Eosinophils # (A) 0.1 k/uL (0-0.7); Eosinophils % (A) 1 %; HCT 45.3 % (34.0-46.0); HGB 14.3 gm/dL (11.4-16.0); Lymphocytes # (A) 2.4 k/uL (1.0-4.8); Lymphocytes % (A) 23 %; MCH 30.1 pg (25.0-35.0); MCHC 31.6 g/dL (31.0-37.0); MCV 95.1 fL (80.0-100.0); Mean Platelet Volume 7.1; Monocytes # (A) 0.6 k/uL (0-1.0); Monocytes % (A) 6 %; Neutrophils # (A) 6.9 k/uL (1.3-7.7); Neutrophils % (A) 67 %; Platelet Count 292 k/uL (150-450); RBC 4.77 m/uL (3.80-5.40); RDW 13.5 % (11.5-15.5); WBC 10.3 k/uL (3.8-10.6)
[2018-06-08 11:49] LABS: ALT 16 U/L (9-52); AST 16 U/L (14-36); Albumin 4.3 g/dL (3.5-5.0); Alkaline Phosphatase 59 U/L (38-126); Amylase 103 U/L (30-110); Anion Gap 7 mmol/L; Blood Urea Nitrogen 6 mg/dL (7-17); Calcium 9.8 mg/dL (8.4-10.2); Carbon Dioxide 26 mmol/L (22-30); Chloride 110 mmol/L (98-107); Glucose 94 mg/dL (74-99); Lipase 596 U/L (23-300); Sodium 143 mmol/L (137-145); Total Bilirubin 0.8 mg/dL (0.2-1.3); Total Protein 7.1 g/dL (6.3-8.2)
[2018-06-08 12:08] LABS: Appearance,Urine Cloudy (Clear); Bacteria,Urine Rare /hpf; Bilirubin,Urine Negative (Negative); Blood,Urine Negative (Negative); Color,Urine Yellow; Glucose,Urine (UA) Negative (Negative); Ketones,Urine Negative (Negative); Leukocyte Esterase,Urine Negative (Negative); Mucus,Urine Moderate /hpf; Nitrite,Urine Negative (Negative); PH, Urine 6.5 (5.0-8.0); Protein,Urine Trace (Negative); RBC,Urine 2 /hpf (0-5); Specific Gravity,Urine 1.013 (1.001-1.035); Squamous Epithelial Cell,Urine 20 /hpf (0-4); Urobilinogen,Urine <2.0 mg/dL (<2.0); WBC,Urine 2 /hpf (0-5)
[2018-06-08] MEDS ORDERED: MORPHINE SULFATE 4 MG/ML SYRINGE IVP STA (12:47)
[2018-06-08] MEDS ORDERED: diphenhydrAMINE 50 MG/ML 1 ML VIAL IVP STA (12:47)
[2018-06-08 14:23] VITALS: BP 128/90; PULSE 53; RESP 16
== END 2018-06-08 14:10 | disposition home or self-care (01) ==
LOC: EC 09:25
DX: K50.90 Crohn's disease, unspecified, without complications (principal); K86.1 Other chronic pancreatitis; G89.29 Other chronic pain; K21.9 Gastro-esophageal reflux disease without esophagitis; M06.9 Rheumatoid arthritis, unspecified; Z88.8 Allergy status to other drugs, medicaments and biological substances; Z79.891 Long term (current) use of opiate analgesic; Z79.899 Other long term (current) drug therapy; Z87.19 Personal history of other diseases of the digestive system; Z86.2 Personal history of diseases of the blood and blood-forming organs and certain disorders involving the immune mechanism; Z90.49 Acquired absence of other specified parts of digestive tract
CPT/HCPCS: 36415; 80053; 82150; 83690; 85025; 81001; 81025; 87086; 99284; 96374; 96375 ×3; 96376; 96361; J2270; J1200; J2405; C9113

== ENCOUNTER 2018-06-29 04:56 | Emergency (ER) | payer OTHER ==
[2018-06-29] MEDS ORDERED: HYDROmorphone 1 MG/ML 1 ML SYRINGE IVP STA (05:53)
[2018-06-29] MEDS ORDERED: ONDANSETRON 4 MG/2 ML VIAL IVP STA (05:53)
--- NOTE | 2018-06-29 05:57 | ED ---
Abdominal Pain HPI - General Source: patient Mode of arrival: ambulatory Limitations: no limitations - History of Present Illness MD Complaint: abdominal pain -: hour(s) Location: LUQ, RUQ, epigastric Radiation: back Migration to: no migration Severity: severe Quality: sharp Consistency: constant Improves With: nothing Worsens With: nothing Associated Symptoms: nausea, vomiting <Guerrero Blas - Last Filed: 06/29/18 05:54> <Gurdeep Cook - Last Filed: 06/29/18 08:26> - General Chief Complaint: Abdominal Pain Stated Complaint: abd pain Time Seen by Provider: 06/29/18 05:43 - History of Present Illness Initial Comments: This patient is a 43-year-old woman with history of chronic pancreatitis. She states she has been having a flare of this for number of hours tonight. She is having the typical pain along the upper abdomen and radiating to her back. She states it is constant, severe intensity. She also has been having associated nausea and vomiting. She is not seeing any blood or coffee-ground material. No change in bowel movements or urination. No fever or chills. No chest symptoms. No symptoms to the lower abdomen or legs. (Guerrero Blas) - Related Data Home Medications Medication Instructions Recorded Confirmed SUMAtriptan SUCCINATE [Imitrex] 100 mg PO DAILY PRN 06/07/16 06/29/18 Omeprazole 20 mg PO DAILY 08/05/16 06/29/18 Ondansetron [Zofran ODT] 8 mg PO TID PRN 08/18/16 06/29/18 Lipase/Protease/Amylase [Creon Dr 72,000 mg PO AC-TID 09/14/16 06/29/18 24,000 Units Capsule] Loratadine 10 mg PO DAILY 09/14/16 06/29/18 Montelukast Sodium [Singulair] 10 mg PO HS 09/14/16 06/29/18 Morphine Sulfate ER [Ms Contin] 30 mg PO Q8H 09/14/16 06/29/18 Morphine Sulfate Ir [MSIR] 15 mg PO BID PRN 09/14/16 06/29/18 Adalimumab [Humira Pen] 40 mg SQ [id number] 12/25/16 06/29/18 Alendronate Sodium [Fosamax] 70 mg PO WE 05/31/18 06/29/18 Allergies Allergy/AdvReac Type Severity Reaction Status Date / Time metoclopramide [From Reglan] AdvReac Intermediate Twitching Verified 06/29/18 07 :10 Review of Systems ROS Other: All systems not noted in ROS Statement are negative. Constitutional: Denies: fever, chills, weakness Respiratory: Denies: cough, dyspnea Cardiovascular: Denies: chest pain, palpitations, edema Gastrointestinal: Reports: as per HPI, abdominal pain, nausea, vomiting. Denies : diarrhea, constipation, hematemesis, melena, hematochezia Genitourinary: Denies: dysuria, hematuria Musculoskeletal: Denies: back pain Skin: Denies: rash Neurological: Denies: headache, weakness <Guerrero Blas - Last Filed: 06/29/18 05:54> ROS Other: All systems not noted in ROS Statement are negative. <Gurdeep Cook - Last Filed: 06/29/18 08:26> ROS Statement: Those systems with pertinent positive or pertinent negative responses have been documented in the HPI. Past Medical History Past Medical History: Eye Disorder, GERD/Reflux, GI Bleed, Neurologic Disorder, Osteoarthritis (OA), Rheumatoid Arthritis (RA) Additional Past Medical History / Comment(s): Chronic pancreatitis, Crohn's disease, chronic esophagitis, blood in stool, diverticulosis, hx ulcers, frequent UTI'S, hx blood clots in bilateral arms pt states d/t picc lines, hx anemia with numerous transfusions, hx kidney failure from dehydration 12 yrs ago , neuropathy, cataracts. History of Any Multi-Drug Resistant Organisms: None Reported Past Surgical History: Cholecystectomy Additional Past Surgical History / Comment(s): colonsocopies, EGDs Past Anesthesia/Blood Transfusion Reactions: No Reported Reaction Additional Past Anesthesia/Blood Transfusion Reaction / Comment(s): Has had about 13 blood transfusions. Past Psychological History: No Psychological Hx Reported Smoking Status: Never smoker Past Alcohol Use History: None Reported Past Drug Use History: Marijuana - Past Family History Father Family Medical History: Myocardial Infarction ([place]) Additional Family Medical History / Comment(s): Father had drug abuse problem. He of a [place] at the age of 61 yrs. Mother Family Medical History: Hypertension Additional Family Medical History / Comment(s): Mother is living. <Guerrero Blas - Last Filed: 06/29/18 05:54> General Exam Limitations: no limitations General appearance: alert, in no apparent distress Head exam: Present: atraumatic, normocephalic Eye exam: Present: normal appearance. Absent: scleral icterus, conjunctival injection ENT exam: Present: normal oropharynx Respiratory exam: Present: normal lung sounds bilaterally. Absent: respiratory distress, wheezes, rales, rhonchi, stridor Cardiovascular Exam: Present: regular rate, normal rhythm, normal heart sounds. Absent: systolic murmur, diastolic murmur, rubs, gallop GI/Abdominal exam: Present: soft, tenderness (Mild upper abdominal tenderness without rebound or guarding). Absent: distended, guarding, rebound, rigid, mass , pulsatile mass, hernia Extremities exam: Present: normal inspection, normal capillary refill. Absent: pedal edema, calf tenderness Back exam: Present: normal inspection. Absent: CVA tenderness (R), CVA tenderness (L) Neurological exam: Present: alert Skin exam: Present: warm, dry, intact, normal color. Absent: rash <RoopaGuerrero - Last Filed: 06/29/18 05:54> General appearance: alert, in no apparent distress Head exam: Present: atraumatic, normocephalic, normal inspection Eye exam: Present: normal appearance, PERRL, EOMI. Absent: scleral icterus, conjunctival injection, periorbital swelling ENT exam: Present: normal exam, mucous membranes moist Neck exam: Present: normal inspection. Absent: tenderness, meningismus, lymphadenopathy Respiratory exam: Present: normal lung sounds bilaterally. Absent: respiratory distress, wheezes, rales, rhonchi, stridor Cardiovascular Exam: Present: regular rate, normal rhythm, normal heart sounds. Absent: systolic murmur, diastolic murmur, rubs, gallop, clicks GI/Abdominal exam: Present: soft, normal bowel sounds. Absent: distended, tenderness, guarding, rebound, rigid Extremities exam: Present: normal inspection, full ROM, normal capillary refill. Absent: tenderness, pedal edema, joint swelling, calf tenderness Back exam: Present: normal inspection Neurological exam: Present: alert, oriented X3, CN II-XII intact Psychiatric exam: Present: normal affect, normal mood Skin exam: Present: warm, dry, intact, normal color. Absent: rash <Gurdeep Cook - Last Filed: 06/29/18 08:26> Course <Guerrero Blas - Last Filed: 06/29/18 05:54> <Gurdeep Cook - Last Filed: 06/29/18 08:26> Vital Signs 06/29/18 05:17 Temperature 97.0 F L Pulse Rate 52 L Respiratory 16 Rate Blood Pressure 105/77 O2 Sat by Pulse 100 Oximetry - Reevaluation(s) Reevaluation #1: 06/29/18 08:26 Medical record is reviewed (Gurdeep Cook) Reevaluation #2: 06/29/18 08:26 Patient rechecked with significant improvement in symptoms (Gurdeep Cook ) Medical Decision Making <Guerrero Blas - Last Filed: 06/29/18 05:54> - Lab Data Result diagrams: 06/29/18 06:17 06/29/18 06:42 <Gurdeep Cook - Last Filed: 06/29/18 08:26> - Medical Decision Making 43 female the ER for evaluation, patient does have history of chronic pain otitis and chronic pain. Patient has pain control, labs are normal and she can be discharged home (Gurdeep Cook) - Lab Data Lab Results 06/29/18 06/29/18 06/29/18 Range/Units 06:17 06:42 07:07 WBC 14.3 H (3.8-10.6) k/uL RBC 5.13 (3.80-5.40) m/uL Hgb 16.0 (11.4-16.0) gm/dL Hct 48.3 H (34.0-46.0) % MCV 94.2 (80.0-100.0) fL MCH 31.2 (25.0-35.0) pg MCHC 33.1 (31.0-37.0) g/dL RDW 13.6 (11.5-15.5) % Plt Count 297 (150-450) k/uL Neutrophils % 81 % Lymphocytes % 11 % Monocytes % 6 % Eosinophils % 1 % Basophils % 0 % Neutrophils # 11.6 H (1.3-7.7) k/uL Lymphocytes # 1.6 (1.0-4.8) k/uL Monocytes # 0.8 (0-1.0) k/uL Eosinophils # 0.1 (0-0.7) k/uL Basophils # 0.0 (0-0.2) k/uL Sodium 141 (137-145) mmol/L Potassium 4.0 (3.5-5.1) mmol/L Chloride 109 H (98-107) mmol/L Carbon Dioxide 23 (22-30) mmol/L Anion Gap 9 mmol/L BUN 11 (7-17) mg/dL Creatinine 0.61 (0.52-1.04) mg/dL Est GFR (CKD-EPI)AfAm >90 (>60 ml/min/1.73 sqM) Est GFR (CKD-EPI)NonAf >90 (>60 ml/min/1.73 sqM) Glucose 102 H (74-99) mg/dL Calcium 10.7 H (8.4-10.2) mg/dL Total Bilirubin 1.1 (0.2-1.3) mg/dL AST 17 (14-36) U/L ALT 18 (9-52) U/L Alkaline Phosphatase 60 (38-126) U/L Total Protein 7.4 (6.3-8.2) g/dL Albumin 4.6 (3.5-5.0) g/dL Amylase 66 (30-110) U/L Lipase 167 (23-300) U/L Urine Color Yellow Urine Appearance Cloudy H (Clear) Urine pH 6.0 (5.0-8.0) Ur Specific [place] 1.022 (1.001-1.035) Urine Protein 1+ H (Negative) Urine Glucose (UA) Negative (Negative) Urine Ketones 3+ H (Negative) Urine Blood Trace H (Negative) Urine Nitrite Negative (Negative) Urine Bilirubin Negative (Negative) Urine Urobilinogen 3.0 (<2.0) mg/dL Ur Leukocyte Esterase Small H (Negative) Urine RBC 9 H (0-5) /hpf Urine WBC 1 (0-5) /hpf Ur Squamous Epith Cells 6 H (0-4) /hpf Urine Bacteria Occasional H (None) /hpf Hyaline Casts 8 H (0-2) /lpf Urine Mucus Many H (None) /hpf Disposition <Guerrero Blas - Last Filed: 06/29/18 05:54> Is patient prescribed a controlled substance at d/c from ED?: No <Gurdeep Cook - Last Filed: 06/29/18 08:26> Clinical Impression: Chronic pancreatitis, Chronic abdominal pain Disposition: HOME SELF-CARE Condition: Fair Instructions: Abdominal Pain (ED) Referrals: Derek Dobbins MD [Primary Care Provider] - 1-2 days
[2018-06-29 06:34] LABS: Basophils % (A) 0 %; Eosinophils # (A) 0.1 k/uL (0-0.7); Eosinophils % (A) 1 %; HCT 48.3 % (34.0-46.0); Lymphocytes # (A) 1.6 k/uL (1.0-4.8); Lymphocytes % (A) 11 %; MCH 31.2 pg (25.0-35.0); MCHC 33.1 g/dL (31.0-37.0); MCV 94.2 fL (80.0-100.0); Mean Platelet Volume 7.3; Monocytes # (A) 0.8 k/uL (0-1.0); Monocytes % (A) 6 %; Neutrophils # (A) 11.6 k/uL (1.3-7.7); Neutrophils % (A) 81 %; Platelet Count 297 k/uL (150-450); RBC 5.13 m/uL (3.80-5.40); RDW 13.6 % (11.5-15.5); WBC 14.3 k/uL (3.8-10.6)
[2018-06-29 07:07] LABS: ALT 18 U/L (9-52); AST 17 U/L (14-36); Albumin 4.6 g/dL (3.5-5.0); Alkaline Phosphatase 60 U/L (38-126); Amylase 66 U/L (30-110); Anion Gap 9 mmol/L; Blood Urea Nitrogen 11 mg/dL (7-17); Calcium 10.7 mg/dL (8.4-10.2); Carbon Dioxide 23 mmol/L (22-30); Chloride 109 mmol/L (98-107); Glucose 102 mg/dL (74-99); Lipase 167 U/L (23-300); Sodium 141 mmol/L (137-145); Total Bilirubin 1.1 mg/dL (0.2-1.3); Total Protein 7.4 g/dL (6.3-8.2)
[2018-06-29] MEDS ORDERED: MORPHINE SULFATE 4 MG/ML SYRINGE IV STA (07:13)
[2018-06-29] MEDS ORDERED: SODIUM CHLORIDE 0.9% 1,000 ML IV ONE (07:39)
[2018-06-29] MEDS ORDERED: PROMETHAZINE INJ 25 MG in SODIUM CHLORIDE 0.9% 50 ML IVPB STA (07:40)
[2018-06-29 07:43] LABS: Appearance,Urine Cloudy (Clear); Bacteria,Urine Occasional /hpf; Bilirubin,Urine Negative (Negative); Blood,Urine Trace (Negative); Color,Urine Yellow; Glucose,Urine (UA) Negative (Negative); Hyaline Casts,Urine 8 /lpf (0-2); Ketones,Urine 3+ (Negative); Leukocyte Esterase,Urine Small (Negative); Mucus,Urine Many /hpf; Nitrite,Urine Negative (Negative); Protein,Urine 1+ (Negative); RBC,Urine 9 /hpf (0-5); Specific Gravity,Urine 1.022 (1.001-1.035); Squamous Epithelial Cell,Urine 6 /hpf (0-4); WBC,Urine 1 /hpf (0-5)
[2018-06-29] MEDS ORDERED: HYDROmorphone 0.5 MG/0.5 ML SYRINGE IVP STA (08:51)
[2018-06-29 09:00] VITALS: PULSE 70; RESP 18
[2018-06-29] MEDS ORDERED: diphenhydrAMINE 50 MG/ML 1 ML VIAL IVP STA (09:01)
[2018-06-29] MEDS ORDERED: LORazepam 2 MG/ML INJ IV STA (09:01)
[2018-06-29 10:59] VITALS: BP 126/78; TEMP 98
== END 2018-06-29 10:55 | disposition home or self-care (01) ==
LOC: EC 04:56
DX: K86.1 Other chronic pancreatitis (principal); G89.29 Other chronic pain; K21.9 Gastro-esophageal reflux disease without esophagitis; Z79.899 Other long term (current) drug therapy; Z88.8 Allergy status to other drugs, medicaments and biological substances
CPT/HCPCS: 36415; 80053; 82150; 83690; 85025; 81001; 99284; 96365; 96375 ×5; 96376; J2060; J2270; J1200; J2550; J2405; J1170 ×2

== ENCOUNTER 2018-06-29 19:33 | Observation (INO) | payer OTHER ==
[2018-06-29] MEDS ORDERED: ONDANSETRON 4 MG/2 ML VIAL IVP STA ×2 (21:56→23:33)
[2018-06-29] MEDS ORDERED: SODIUM CHLORIDE 0.9% 500 ML 500 ML IV STA (21:56)
[2018-06-29] MEDS ORDERED: SODIUM CHLORIDE 0.9% 1,000 ML IV STA (23:33)
--- NOTE | 2018-06-29 23:39 | ED ---
General Adult HPI - General Chief complaint: Abdominal Pain Stated complaint: pancreatitis Source: patient Mode of arrival: ambulatory Limitations: no limitations - Related Data Home Medications Medication Instructions Recorded Confirmed SUMAtriptan SUCCINATE [Imitrex] 100 mg PO DAILY PRN 06/07/16 06/29/18 Omeprazole 20 mg PO DAILY 08/05/16 06/29/18 Ondansetron [Zofran ODT] 8 mg PO TID PRN 08/18/16 06/29/18 Lipase/Protease/Amylase [Thor Ambrocio 72,000 units PO AC-TID 09/14/16 06/29/18 24,000 Units Capsule] Loratadine 10 mg PO DAILY 09/14/16 06/29/18 Montelukast Sodium [Singulair] 10 mg PO HS 09/14/16 06/29/18 Morphine Sulfate ER [Ms Contin] 30 mg PO Q8H 09/14/16 06/29/18 Morphine Sulfate Ir [MSIR] 15 mg PO BID PRN 09/14/16 06/29/18 Adalimumab [Humira Pen] 40 mg SQ [id number] 12/25/16 06/29/18 Alendronate Sodium [Fosamax] 70 mg PO WE 05/31/18 06/29/18 Allergies Allergy/AdvReac Type Severity Reaction Status Date / Time metoclopramide [From Reglan] AdvReac Intermediate Twitching Verified 06/29/18 21 :22 Review of Systems ROS Statement: Those systems with pertinent positive or pertinent negative responses have been documented in the HPI. ROS Other: All systems not noted in ROS Statement are negative. Past Medical History Past Medical History: Eye Disorder, GERD/Reflux, GI Bleed, Neurologic Disorder, Osteoarthritis (OA), Rheumatoid Arthritis (RA) Additional Past Medical History / Comment(s): Chronic pancreatitis, Crohn's disease, chronic esophagitis, blood in stool, diverticulosis, hx ulcers, frequent UTI'S, hx blood clots in bilateral arms pt states d/t picc lines, hx anemia with numerous transfusions, hx kidney failure from dehydration 12 yrs ago , neuropathy, cataracts. History of Any Multi-Drug Resistant Organisms: None Reported Past Surgical History: Cholecystectomy Additional Past Surgical History / Comment(s): colonsocopies, EGDs Past Anesthesia/Blood Transfusion Reactions: No Reported Reaction Additional Past Anesthesia/Blood Transfusion Reaction / Comment(s): Has had about 13 blood transfusions. Past Psychological History: No Psychological Hx Reported Smoking Status: Never smoker Past Alcohol Use History: None Reported Past Drug Use History: Marijuana - Past Family History Father Family Medical History: Myocardial Infarction ([place]) Additional Family Medical History / Comment(s): Father had drug abuse problem. He of a [place] at the age of 61 yrs. Mother Family Medical History: Hypertension Additional Family Medical History / Comment(s): Mother is living. General Exam Limitations: no limitations Course Vital Signs 06/29/18 20:10 Temperature 99.5 F Pulse Rate 62 Respiratory 20 Rate Blood Pressure 125/85 O2 Sat by Pulse 99 Oximetry Medical Decision Making - Medical Decision Making Dictation was produced using [employer] dictation software. please excuse any grammatical, word or spelling errors. Chief Complaint: 43-year-old female presents with worsening abdominal pain. History of Present Illness: 43-year-old female multiple abdominal comorbidities presents worsening abdominal pain. Patient was seen here earlier today where she was evaluated and discharged. Patient takes by mouth morphine at home for her symptoms. Her medications prescribed by her pain specialist. States that she's been having severe nausea and vomiting. She has seen specialists at [facility]. She has a scheduled pancreatic biopsy July. His monitor emergency department and specialists here for multiple visitations for somewhat complaints. Patient's history of chronic pancreatitis. The ROS documented in this emergency department record has been reviewed and confirmed by me. Those systems with pertinent positive or negative responses have been documented in the HPI. All other systems are other negative and/or noncontributory. PHYSICAL EXAM: General Impression: Alert and oriented x3, not in acute distress HEENT: Normocephalic atraumatic, extra-ocular movements intact, pupils equal and reactive to light bilaterally, mucous membranes moist. Cardiovascular: Heart regular rate and rhythm, S1&S2 audible, no murmurs, rubs or gallops Chest: Lungs clear to auscultation bilaterally, no rhonchi, no wheeze, no rales Abdomen: Bowel sounds present, abdomen soft, non-tender, non-distended, no organomegaly Musculoskeletal: Pulses present and equal in all extremities, no peripheral edema Motor: Power 5/5 bilaterally, no focal deficits noted Neurological: CN II-XII grossly intact, no focal motor or sensory deficits noted Skin: Intact with no visualized rashes Psych: Normal affect and mood ED course: 43-year-old female with history of chronic abdominal pain presents for nausea vomiting abdominal pain. Vital signs upon arrival are within acceptable limits. Labs were reviewed from earlier today. 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 Cabrera who is agreeable for patient be admitted. Patient given intravenous fluids, IV analgesics and antiemetics. Patient be admitted observation for further care. Disposition Clinical Impression: Abdominal pain Disposition: ADMITTED IP TO THIS HOSP Condition: Fair Referrals: Derek Dobbins MD [Primary Care Provider] - 1-2 days Decision Time: 00:07
[2018-06-30] MEDS ORDERED: ACETAMINOPHEN TAB 325 MG TAB PO PRN (00:04)
[2018-06-30] MEDS ORDERED: NALOXONE 0.4 MG/ML 1 ML VIAL IV PRN (00:04)
[2018-06-30] MEDS: SODIUM CHLORIDE 0.9% 1,000 ML IV SCH ×2 (00:48→12:26)
[2018-06-30] MEDS: MORPHINE SULFATE 4 MG/ML SYRINGE IV PRN ×2 (00:48→04:33)
[2018-06-30 01:02] VITALS: BMI 17.6
[2018-06-30] MEDS: MORPHINE SULFATE 4 MG/ML SYRINGE IVP PRN ×3 (08:49→16:28)
--- NOTE | 2018-06-30 12:07 | P.CONS ---
History of Present Illness - Reason for Consult Consult date: 06/30/18 Abdominal pain Requesting physician: Fabian Healy - Chief Complaint Abdominal pain - History of Present Illness 43-year-old female with a history of chronic abdominal pain' sees pain specialist, Crohn's, cholecystectomy, gastroparesis, RA; humira, chronic pancreatitis admitted with acute abdominal pain. She's had multiple hospitalizations regarding abdominal pain and was referred to [facility] April 2018. Seen in the ER yesterday discharged only to return with worsening abdominal pain. White count 14.3. Hemoglobin 16. Lipase 167 previously 596 06/08/2018. No fever chills or hematemesis hematochezia melena. Saw a Crohns specialist at [facility] last month MRCP performed patient reports alings "severe pancreatic damage". Pancreatic [facility] Last dose of Humira Tuesday. Review of Systems Constitutional: Denies fever, chills, sweats, weight gain, or loss. HEENT: Negative for migraines, blurred vision or loss, earaches, drainage, tinnitus, oral mucosal lesions, dysphagia, or odynophagia. CARDIAC: Negative for chest pain, arrhythmias, or palpitation. RESPIRATORY: Negative for shortness of breath, hemoptysis, cough, or sputum production. GI: See HPI for pertinent findings. : Negative for hematuria, urgency, frequency, polyuria, or dysuria. GYNc: Negative vaginal discharge. MUSCULOSKELETAL: Negative for muscle aches, swelling, arthritis, and arthralgias. NEUROLOGIC: Negative for stroke or TIA. ENDOCRINE: Negative for thyroid problems. SKIN: Negative for rash or itching. PSYCHIATRIC: Negative history for depression and anxiety Past Medical History Past Medical History: Eye Disorder, GERD/Reflux, GI Bleed, Neurologic Disorder, Osteoarthritis (OA), Rheumatoid Arthritis (RA) Additional Past Medical History / Comment(s): Chronic pancreatitis, Crohn's disease, chronic esophagitis, blood in stool, diverticulosis, hx ulcers, frequent UTI'S, hx blood clots in left arm pt states d/t picc lines, hx anemia with numerous transfusions, hx kidney failure from dehydration 12 yrs ago, neuropathy, cataracts. History of Any Multi-Drug Resistant Organisms: None Reported Past Surgical History: Cholecystectomy Additional Past Surgical History / Comment(s): colonsocopies, EGDs Past Anesthesia/Blood Transfusion Reactions: No Reported Reaction Additional Past Anesthesia/Blood Transfusion Reaction / Comm: Has had about 13 blood transfusions. Past Psychological History: No Psychological Hx Reported Smoking Status: Never smoker Past Alcohol Use History: None Reported Past Drug Use History: Marijuana Additional Drug Use History / Comment(s): Daily use-less than 1 joint. - Past Family History Father Family Medical History: Myocardial Infarction ([place]) Additional Family Medical History / Comment(s): Father had drug abuse problem. He of a [place] at the age of 61 yrs. Mother Family Medical History: Hypertension Additional Family Medical History / Comment(s): Mother is living. Medications and Allergies Home Medications Medication Instructions Recorded Confirmed Type SUMAtriptan SUCCINATE [Imitrex] 100 mg PO DAILY PRN 06/07/16 06/29/18 History Omeprazole 20 mg PO DAILY 08/05/16 06/29/18 History Ondansetron [Zofran ODT] 8 mg PO TID PRN 08/18/16 06/29/18 History Lipase/Protease/Amylase [Creon Dr 72,000 units PO AC-TID 09/14/16 06/29/18 History 24,000 Units Capsule] Loratadine 10 mg PO DAILY 09/14/16 06/29/18 History Montelukast Sodium [Singulair] 10 mg PO HS 09/14/16 06/29/18 History Morphine Sulfate ER [Ms Contin] 30 mg PO Q8H 09/14/16 06/29/18 History Morphine Sulfate Ir [MSIR] 15 mg PO BID PRN 09/14/16 06/29/18 History Adalimumab [Humira Pen] 40 mg SQ [id number] 12/25/16 06/29/18 History Alendronate Sodium [Fosamax] 70 mg PO WE 05/31/18 06/29/18 History Allergies Allergy/AdvReac Type Severity Reaction Status Date / Time metoclopramide [From Reglan] AdvReac Intermediate Twitching Verified 06/29/18 21 :22 Physical Exam Vitals: Vital Signs Temp Pulse Pulse Resp BP BP Pulse Ox 06/30/18 07:37 98.9 F 59 L 14 115/68 98 06/30/18 04:15 98.9 F 06/29/18 20:10 99.5 F 62 20 125/85 99 Intake and Output 06/29/18 06/30/18 06/30/18 22:59 06:59 14:59 Intake Total 600 Balance 600 Intake: Intake, IV Titration 500 Amount Sodium Chloride 0.9% 1, 500 000 ml @ 100 mls/hr IV . Q10H SUDHIR Rx#:[id number] Oral 100 Other: # Voids 1 Weight 45.359 kg 45.359 kg General appearance: The patient is alert, oriented, in no acute distress. HET: Head is normocephalic and atraumatic. Pupils are equal and reactive. Oropharynx is clear without lesions. Neck: Supple without lymphadenopathy. Trachea midline. Heart: S1 S2. Regular rate and rhythm. Lungs: No crackles or wheezes are heard. Abdomen: Soft, tenderness midepigastrum, nondistended with bowel sounds. No peritoneal signs. No palpable organomegaly or masses. Extremities: Normal skin color and turgor. No cyanosis, rash, ulceration, clubbing, or edema. Radial and pedal pulses are 2/4 bilaterally. Neurological: No focal deficits. Strength and sensation are grossly intact. Assessment and Plan (1) Chronic abdominal pain Narrative/Plan: Suspect chronic pancreatitis Current Visit: Yes Status: Acute Code(s): R10.9 - UNSPECIFIED ABDOMINAL PAIN ; G89.29 - OTHER CHRONIC PAIN SNOMED Code(s): 463050273 Plan: 1. Pain management per medicine. 2. GI prophylaxis. 3. Light diet as tolerated. 4. Continue home medications. 5. Follow up [facility] 11. Thank you for this kind referral and the opportunity to participate in the care of your patient. This consultation was discussed with Dr. Rosales. The impression and plan of care have been directed as dictated.
[2018-06-30] MEDS: LIPASE 5,000/PROTEASE 17,000/AMYLASE 24,000 PO SCH ×2 (14:16→18:09)
[2018-06-30] MEDS: ONDANSETRON 4 MG/2 ML VIAL IVP PRN ×2 (16:28→23:34)
[2018-06-30] MEDS: HYDROmorphone 1 MG/ML 1 ML SYRINGE IVP PRN ×2 (20:19→23:34)
--- NOTE | 2018-06-30 20:25 | HP ---
HISTORY AND PHYSICAL DATE OF ADMISSION: 06/30/2018 DATE OF SERVICE: 06/30/2018 PRESENTING COMPLAINT: Nausea, vomiting, abdominal pain. HISTORY OF PRESENTING COMPLAINT: This is a pleasant 43-year-old patient who follows with Dr. Dobbins and Dr. Nagy, her sample tester. Chronic stable medical conditions include osteoarthritis, rheumatoid arthritis, chronic diverticulosis, peripheral neuropathy and esophagitis. The patient did follow up with the [facility] and she was told she has pancreatitis. She is now waiting to see a pancreatic specialist on August 11. Patient yet again presented with the same cycle of uncontrollable nausea, vomiting, increasing abdominal pain. No fever, no chills, and having diarrhea. Patient states she has been very strict with her diet and has been maintaining a journal at home and has been frustrated; she really cannot help the same. Patient admitted from the ER. Patient was put on clear liquids, IV pain medications, and Zofran is being ordered for nausea. REVIEW OF SYSTEMS: CONSTITUTIONAL: Tired. HEENT: None. RESPIRATORY: None. CARDIOVASCULAR: None. GASTROINTESTINAL: As above. GENITOURINARY: None. MUSCULOSKELETAL: Pain in different joints. DERMATOLOGICAL: None. HEMATOLOGICAL: None. LYMPHATICS: None. PSYCHIATRY: Anxiety. NEUROLOGICAL: Numbness and tingling in the hands and feet. PAST MEDICAL HISTORY: 1. Chronic nonspecific colitis. 2. Rheumatoid arthritis. 3. Chronic pancreatitis. 4. Protein-calorie malnutrition. 5. Chronic pain syndrome. 6. Esophagitis. 7. Left breast mass. PAST SURGICAL HISTORY: Cholecystectomy. SOCIAL HISTORY: No smoking. No alcohol. Occasionally does marijuana. Lives by herself. FAMILY HISTORY: Hypertension. HOME MEDICATIONS: 1. Imitrex 100 mg daily p.r.n. 2. Zofran 8 mg t.i.d. p.r.n. 3. Omeprazole 20 mg p.o. daily. 4. Morphine sulfate, immediate release, 15 mg p.o. b.i.d. p.r.n. 5. MS Contin 30 mg p.o. q.8. 6. Singulair 10 mg at bedtime. 7. Claritin 10 mg p.o. daily. 8. Creon 72,000 units p.o. before meals t.i.d. 9. Fosamax 70 mg on Tuesday. 10.Humira 40 mg every 14 days. ALLERGIES: REGLAN. PHYSICAL EXAMINATION: Temperature 99.1, pulse 50, respiration 16, blood pressure 132/74, pulse ox 98% on room air. GENERAL APPEARANCE: Thin build. BMI 17.7. Lying in bed, anxious-appearing. EYES: Pupils equal. Conjunctivae pale. HEENT: External appearance of nose and ears normal. Oral cavity a bit dry. NECK: JVD not raised. Mass not palpable. RESPIRATORY: Effort normal. LUNGS: Fair air entry. CARDIOVASCULAR: First and second sounds normal. No edema. ABDOMEN: Soft. Some epigastric tenderness. No guarding or rigidity. Liver and spleen not palpable. LYMPHATIC: No lymph node palpable in neck or axillae. PSYCHIATRY: Alert and oriented x3. Mood and affect anxious-appearing. NEUROLOGICAL: Pupils equal. Cranial nerves grossly intact. Power and sensation grossly intact. MUSCULOSKELETAL: Wasting of muscles and loss of subcutaneous fat. INVESTIGATIONS: White count 6.9, hemoglobin 13.8, potassium 3.5. BUN and creatinine are normal. Lipase 453. ASSESSMENT: 1. Acute and chronic pancreatitis flareup, idiopathic. 2. Chronic esophagitis. 3. Nonspecific colitis, chronic. 4. Moderate protein-calorie malnutrition from decreased oral intake. 5. Chronic rheumatoid arthritis. 6. Left breast mass, being followed by Dr. Meghan Mcqueen. PLAN: Patient is put on clear liquid diet, IV pain medications, antiemetics. GI was consulted. They have nothing further to offer right now. Care was discussed with the patient. Increase activity as tolerated. MMODL / IJN: [id number] /
[2018-06-30] MEDS: MONTELUKAST 10 MG TAB PO SCH (20:31)
[2018-07-01] MEDS: HYDROmorphone 1 MG/ML 1 ML SYRINGE IVP PRN (03:24)
[2018-07-01] MEDS: SODIUM CHLORIDE 0.9% 1,000 ML IV SCH ×3 (07:32→17:22)
[2018-07-01] MEDS: LIPASE 5,000/PROTEASE 17,000/AMYLASE 24,000 PO SCH ×2 (07:37→12:39)
[2018-07-01] MEDS: ONDANSETRON 4 MG/2 ML VIAL IVP PRN ×2 (07:37→17:24)
[2018-07-01] MEDS: HYDROmorphone 0.5 MG/0.5 ML SYRINGE IVP PRN ×4 (07:38→17:25)
[2018-07-01 15:23] VITALS: RESP 16
[2018-07-01] MEDS ORDERED: CREON 24000 UNIT PO SCH (17:30)
[2018-07-01] MEDS ORDERED: MORPHINE SULFATE IR 15 MG TABLET PO PRN (18:32)
[2018-07-01] MEDS ORDERED: ENOXAPARIN 40 MG/0.4 ML SYRINGE SQ SCH (18:45)
[2018-07-01] MEDS ORDERED: MORPHINE SULFATE ER 30 MG TABLET PO SCH (19:00)
[2018-07-01 19:53] VITALS: BP 110/56; PULSE 58; TEMP 98.4
--- NOTE | 2018-07-01 20:00 | P.PN ---
Subjective Progress Note Date: 07/01/18 Principal diagnosis: Pancreatitis Patient lying in bed, reports she is still having abdominal pain however to slightly improved since yesterday. She tolerated some liquids today. Objective - Vital Signs Vital signs: Vital Signs Temp 98.4 F 07/01/18 19:51 Pulse 58 L 07/01/18 19:51 Resp 16 07/01/18 19:51 BP 110/56 07/01/18 19:51 Pulse Ox 99 07/01/18 19:51 Intake & Output 07/01/18 07/01/18 07/02/18 06:59 18:59 06:59 Intake Total 1500 Balance 1500 Intake: Intake, IV Titration 800 Amount Sodium Chloride 0.9% 1, 800 000 ml @ 100 mls/hr IV . Q10H SUDHIR Rx#:[id number] Oral 700 Other: Voiding Method Toilet # Voids 3 6 # Bowel Movements 2 4 - Exam On physical examination, patient appears comfortable in no apparent distress. HEAD: Normocephalic, atraumatic. EYES: No scleral icterus. No conjunctival injection. MOUTH: No lesions, tongue midline. NECK: Trachea midline, no gross abnormalities. CHEST: Clear to auscultation with no wheezing or rhonchi appreciated. HEART: Regular rate and rhythm. ABDOMEN: Soft, mildly tender to palpation. Bowel sounds are positive. No organomegaly. No guarding or rigidity. EXTREMITIES: No pedal edema. SKIN: No rashes, no jaundice. NEUROLOGIC: Alert and oriented x3. No focal deficits. Assessment and Plan (1) Acute on chronic pancreatitis Narrative/Plan: Patient with a known history of chronic pancreatitis who presents with acute worsening of abdominal pain. She has an established relationship with [facility] and is scheduled to follow up with them on August 11. Current Visit: No Status: Acute Code(s): K85.90 - ACUTE PANCREATITIS WITHOUT NECROSIS OR INFECTION, UNSP; K86.1 - OTHER CHRONIC PANCREATITIS SNOMED Code(s): 099460772 (2) Chronic abdominal pain Current Visit: Yes Status: Acute Code(s): R10.9 - UNSPECIFIED ABDOMINAL PAIN ; G89.29 - OTHER CHRONIC PAIN SNOMED Code(s): 736702080 Plan: Supportive care Diet as tolerated Pain control IV fluid hydration Follow-up with [facility] as previously scheduled Thank you for allowing us to participate in the care of this patient
[2018-07-01] MEDS: MONTELUKAST 10 MG TAB PO SCH (20:32)
[2018-07-02] MEDS ORDERED: PANTOPRAZOLE 40 MG TABLET PO SCH (07:30)
--- NOTE | 2018-07-02 07:48 | DS ---
DISCHARGE SUMMARY DATE OF ADMISSION: June 30, 2018. DATE OF DISCHARGE: July 01, 2018. FINAL DIAGNOSES: 1. Acute on chronic flare up of acute pancreatitis, idiopathic. 2. Chronic esophagitis. 3. Nonspecific colitis, chronic. 4. Moderate protein-calorie malnutrition from decreased oral intake. 5. Chronic rheumatoid arthritis. 6. Left breast mass, being followed by Dr. Meghan Mcqueen. HOSPITAL COURSE: This patient followed up with acute exacerbation of acute on chronic pancreatitis, was throwing up, abdominal pain, diarrhea initially, then today earlier was tolerating a liquid diet up and about, doing much better. On exam: Abdomen minimal tenderness. The patient is due to follow up at [facility] in July. DISCHARGE MEDICATIONS: 1. Imitrex 100 mg daily p.r.n. 2. Omeprazole 20 mg daily. 3. Zofran 8 mg p.o. t.i.d. p.r.n. 4. Creon 86006 units a.c. t.i.d., that is 3 tablets. 5. Claritin 10 mg a day. 6. Singulair 10 mg p.o. q.h.s. 7. MS Contin 30 mg q.8. 8. Morphine sulfate immediate release 50 mg p.o. b.i.d. p.r.n. 9. Fosamax has been discontinued. Diet: Soft bland diet. Follow up with Dr. Dobbins in 2 days and follow up at [facility] to keep her schedule. Copy to Dr. Dobbins. MMKJL / IJN: [id number] /
== END 2018-07-01 23:05 ==
LOC: EC 19:33 → 4SSUR 06-30 00:07
PROVIDERS: ADMIT Hospitalist; ATTEND Hospitalist
DX: K85.00 Idiopathic acute pancreatitis without necrosis or infection (principal); K86.1 Other chronic pancreatitis; K52.9 Noninfective gastroenteritis and colitis, unspecified; E44.0 Moderate protein-calorie malnutrition; Z68.1 Body mass index [BMI] 19.9 or less, adult; M06.9 Rheumatoid arthritis, unspecified; N63.20 Unspecified lump in the left breast, unspecified quadrant; M19.90 Unspecified osteoarthritis, unspecified site; K21.0 Gastro-esophageal reflux disease with esophagitis; K31.84 Gastroparesis; K50.90 Crohn's disease, unspecified, without complications; G62.9 Polyneuropathy, unspecified; G89.4 Chronic pain syndrome; Z82.49 Family history of ischemic heart disease and other diseases of the circulatory system; Z90.49 Acquired absence of other specified parts of digestive tract; Z79.899 Other long term (current) drug therapy; Z79.83 Long term (current) use of bisphosphonates; Z79.891 Long term (current) use of opiate analgesic; Z87.440 Personal history of urinary (tract) infections; Z88.8 Allergy status to other drugs, medicaments and biological substances
CPT/HCPCS: 96376 ×3; 96372; 96375; 96361; 96374; 99284; G0378 ×2; J2270; J2405 ×3; J1650; J1170 ×3

== ENCOUNTER 2018-07-03 12:48 | Observation (INO) | payer OTHER ==
[2018-07-03] MEDS ORDERED: SODIUM CHLORIDE 0.9% 1,000 ML IV STA (13:28)
[2018-07-03] MEDS ORDERED: HYDROmorphone 0.5 MG/0.5 ML SYRINGE IVP STA ×2 (13:28→16:24)
[2018-07-03] MEDS ORDERED: PANTOPRAZOLE 40 MG/10 ML VIAL IVP STA (13:28)
[2018-07-03] MEDS ORDERED: ONDANSETRON 4 MG/2 ML VIAL IVP STA (13:28)
--- NOTE | 2018-07-03 13:31 | ED ---
General Adult HPI - General Chief complaint: Abdominal Pain Stated complaint: Abd Pain Time Seen by Provider: 07/03/18 13:03 Source: patient, family, RN notes reviewed Mode of arrival: wheelchair Limitations: no limitations - History of Present Illness Initial comments: Patient is a pleasant 43-year-old female presenting to the emergency Department with chronic abdominal pain. Patient has history of Crohn's and chronic pancreatitis. Patient has been on morphine from now for 7 years at home. Patient has had multiple exacerbations over the past 7 months. Patient was recently hospitalized for this. Patient has seen GI specialist as well as Crohn specialist. Patient states her Crohn's Dr. does not feel it is her Crohn' s and is likely her chronic pancreatitis. Patient does have an appointment with a specialist at [facility] however this is not until August 11. Patient is having vomiting and diarrhea. Patient was discharged from the hospital 2 days ago however has continued symptoms. Patient and the male with her states usually she needs to be admitted to the hospital with IV fluids and Dilaudid. - Related Data Home Medications Medication Instructions Recorded Confirmed SUMAtriptan SUCCINATE [Imitrex] 100 mg PO DAILY PRN 06/07/16 07/03/18 Omeprazole 20 mg PO DAILY 08/05/16 07/03/18 Ondansetron [Zofran ODT] 8 mg PO TID PRN 08/18/16 07/03/18 Lipase/Protease/Amylase [Thor Ambrocio 72,000 units PO AC-TID 09/14/16 07/03/18 24,000 Units Capsule] Loratadine 10 mg PO DAILY 09/14/16 07/03/18 Montelukast Sodium [Singulair] 10 mg PO HS 09/14/16 07/03/18 Morphine Sulfate ER [Ms Contin] 30 mg PO Q8H 09/14/16 07/03/18 Morphine Sulfate Ir [MSIR] 15 mg PO BID PRN 09/14/16 07/03/18 Adalimumab [Humira Pen] 40 mg SQ [id number] 12/25/16 07/03/18 Alendronate Sodium [Fosamax] 70 mg PO WE 05/31/18 07/03/18 Allergies Allergy/AdvReac Type Severity Reaction Status Date / Time metoclopramide [From Reglan] AdvReac Intermediate Twitching Verified 07/03/18 13 :04 Review of Systems ROS Statement: Those systems with pertinent positive or pertinent negative responses have been documented in the HPI. ROS Other: All systems not noted in ROS Statement are negative. Constitutional: Denies: fever Eyes: Denies: eye pain ENT: Denies: ear pain Respiratory: Denies: cough Cardiovascular: Denies: chest pain Endocrine: Reports: fatigue Gastrointestinal: Reports: abdominal pain, nausea, vomiting, diarrhea Genitourinary: Denies: dysuria Musculoskeletal: Denies: back pain Skin: Denies: rash Neurological: Denies: headache Past Medical History Past Medical History: Eye Disorder, GERD/Reflux, GI Bleed, Neurologic Disorder, Osteoarthritis (OA), Rheumatoid Arthritis (RA) Additional Past Medical History / Comment(s): Chronic pancreatitis, Crohn's disease, chronic esophagitis, blood in stool, diverticulosis, hx ulcers, frequent UTI'S, hx blood clots in left arm pt states d/t picc lines, hx anemia with numerous transfusions, hx kidney failure from dehydration 12 yrs ago, neuropathy, cataracts. History of Any Multi-Drug Resistant Organisms: None Reported Past Surgical History: Cholecystectomy Additional Past Surgical History / Comment(s): colonsocopies, EGDs Past Anesthesia/Blood Transfusion Reactions: No Reported Reaction Additional Past Anesthesia/Blood Transfusion Reaction / Comment(s): Has had about 13 blood transfusions. Past Psychological History: No Psychological Hx Reported Smoking Status: Never smoker Past Alcohol Use History: None Reported Past Drug Use History: Marijuana - Past Family History Father Family Medical History: Myocardial Infarction (AZ) Additional Family Medical History / Comment(s): Father had drug abuse problem. He of a AZ at the age of 61 yrs. Mother Family Medical History: Hypertension Additional Family Medical History / Comment(s): Mother is living. General Exam Limitations: no limitations General appearance: alert, in no apparent distress Head exam: Present: atraumatic Eye exam: Present: normal appearance, PERRL ENT exam: Present: normal oropharynx Neck exam: Present: normal inspection Respiratory exam: Present: normal lung sounds bilaterally Cardiovascular Exam: Present: regular rate, normal rhythm Expanded Peripheral pulses: 2+: Dorsalis Pedis (R), Dorsalis Pedis (L) GI/Abdominal exam: Present: soft, tenderness (Moderate tenderness in the epigastric region). Absent: distended Extremities exam: Present: normal inspection. Absent: pedal edema, calf tenderness Neurological exam: Present: alert Psychiatric exam: Present: normal affect, normal mood Skin exam: Present: normal color Course Vital Signs 07/03/18 12:50 Temperature 98.5 F Pulse Rate 99 Respiratory 18 Rate Blood Pressure 110/70 O2 Sat by Pulse 99 Oximetry Medical Decision Making - Medical Decision Making Patient reevaluated and still having some discomfort. Patient is requesting discharge for further pain medication and IV fluids. Case was discussed in detail with Dr. basurto, covering for Dr. Dobbins who will admit with GI and pain management consult. - Lab Data Result diagrams: 07/03/18 13:37 07/03/18 13:37 Lab Results 07/03/18 07/03/18 07/03/18 Range/Units 13:28 13:37 13:37 WBC 7.2 (3.8-10.6) k/uL RBC 4.96 (3.80-5.40) m/uL Hgb 15.3 (11.4-16.0) gm/dL Hct 46.5 H (34.0-46.0) % MCV 93.7 (80.0-100.0) fL MCH 30.8 (25.0-35.0) pg MCHC 32.9 (31.0-37.0) g/dL RDW 13.3 (11.5-15.5) % Plt Count 290 (150-450) k/uL Neutrophils % 72 % Lymphocytes % 20 % Monocytes % 5 % Eosinophils % 1 % Basophils % 0 % Neutrophils # 5.2 (1.3-7.7) k/uL Lymphocytes # 1.5 (1.0-4.8) k/uL Monocytes # 0.3 (0-1.0) k/uL Eosinophils # 0.1 (0-0.7) k/uL Basophils # 0.0 (0-0.2) k/uL PT 11.1 (9.0-12.0) sec INR 1.1 (<1.2) APTT 24.8 (22.0-30.0) sec Sodium 144 (137-145) mmol/L Potassium 3.9 (3.5-5.1) mmol/L Chloride 114 H (98-107) mmol/L Carbon Dioxide 22 (22-30) mmol/L Anion Gap 8 mmol/L BUN 9 (7-17) mg/dL Creatinine 0.71 (0.52-1.04) mg/dL Est GFR (CKD-EPI)AfAm >90 (>60 ml/min/1.73 sqM) Est GFR (CKD-EPI)NonAf >90 (>60 ml/min/1.73 sqM) Glucose 99 (74-99) mg/dL Calcium 9.9 (8.4-10.2) mg/dL Total Bilirubin 1.2 (0.2-1.3) mg/dL AST 18 (14-36) U/L ALT 17 (9-52) U/L Alkaline Phosphatase 41 (38-126) U/L Total Protein 7.4 (6.3-8.2) g/dL Albumin 4.6 (3.5-5.0) g/dL Amylase 63 (30-110) U/L Lipase 278 (23-300) U/L Urine Color Urine Appearance (Clear) Urine pH (5.0-8.0) Ur Specific [place] (1.001-1.035) Urine Protein (Negative) Urine Glucose (UA) (Negative) Urine Ketones (Negative) Urine Blood (Negative) Urine Nitrite (Negative) Urine Bilirubin (Negative) Urine Urobilinogen (<2.0) mg/dL Ur Leukocyte Esterase (Negative) Urine RBC (0-5) /hpf Urine WBC (0-5) /hpf Ur Squamous Epith Cells (0-4) /hpf Urine Mucus (None) /hpf 07/03/18 Range/Units 15:34 WBC (3.8-10.6) k/uL RBC (3.80-5.40) m/uL Hgb (11.4-16.0) gm/dL Hct (34.0-46.0) % MCV (80.0-100.0) fL MCH (25.0-35.0) pg MCHC (31.0-37.0) g/dL RDW (11.5-15.5) % Plt Count (150-450) k/uL Neutrophils % % Lymphocytes % % Monocytes % % Eosinophils % % Basophils % % Neutrophils # (1.3-7.7) k/uL Lymphocytes # (1.0-4.8) k/uL Monocytes # (0-1.0) k/uL Eosinophils # (0-0.7) k/uL Basophils # (0-0.2) k/uL PT (9.0-12.0) sec INR (<1.2) APTT (22.0-30.0) sec Sodium (137-145) mmol/L Potassium (3.5-5.1) mmol/L Chloride (98-107) mmol/L Carbon Dioxide (22-30) mmol/L Anion Gap mmol/L BUN (7-17) mg/dL Creatinine (0.52-1.04) mg/dL Est GFR (CKD-EPI)AfAm (>60 ml/min/1.73 sqM) Est GFR (CKD-EPI)NonAf (>60 ml/min/1.73 sqM) Glucose (74-99) mg/dL Calcium (8.4-10.2) mg/dL Total Bilirubin (0.2-1.3) mg/dL AST (14-36) U/L ALT (9-52) U/L Alkaline Phosphatase (38-126) U/L Total Protein (6.3-8.2) g/dL Albumin (3.5-5.0) g/dL Amylase (30-110) U/L Lipase (23-300) U/L Urine Color Yellow Urine Appearance Clear (Clear) Urine pH 6.0 (5.0-8.0) Ur Specific [place] 1.018 (1.001-1.035) Urine Protein Trace H (Negative) Urine Glucose (UA) Negative (Negative) Urine Ketones Negative (Negative) Urine Blood Moderate H (Negative) Urine Nitrite Negative (Negative) Urine Bilirubin Negative (Negative) Urine Urobilinogen 2.0 (<2.0) mg/dL Ur Leukocyte Esterase Negative (Negative) Urine RBC 1 (0-5) /hpf Urine WBC 1 (0-5) /hpf Ur Squamous Epith Cells 6 H (0-4) /hpf Urine Mucus Many H (None) /hpf - Radiology Data Radiology results: image reviewed (Abdominal x-ray does show multiple air-fluid levels which could be seen with partial obstruction or enteritis or ileus.) Disposition Clinical Impression: Intractable abdominal pain Disposition: ADMITTED IP TO THIS HOSP Is patient prescribed a controlled substance at d/c from ED?: No Referrals: Derek Dobbins MD [Primary Care Provider] - 1-2 days Decision Time: 16:29
[2018-07-03 13:51] LABS: Basophils % (A) 0 %; Eosinophils # (A) 0.1 k/uL (0-0.7); Eosinophils % (A) 1 %; HCT 46.5 % (34.0-46.0); HGB 15.3 gm/dL (11.4-16.0); Lymphocytes # (A) 1.5 k/uL (1.0-4.8); Lymphocytes % (A) 20 %; MCH 30.8 pg (25.0-35.0); MCHC 32.9 g/dL (31.0-37.0); MCV 93.7 fL (80.0-100.0); Monocytes # (A) 0.3 k/uL (0-1.0); Monocytes % (A) 5 %; Neutrophils # (A) 5.2 k/uL (1.3-7.7); Neutrophils % (A) 72 %; Platelet Count 290 k/uL (150-450); RBC 4.96 m/uL (3.80-5.40); RDW 13.3 % (11.5-15.5); WBC 7.2 k/uL (3.8-10.6)
[2018-07-03 14:03] LABS: INR 1.1 (<1.2); Partial Thromboplastin Time 24.8 sec (22.0-30.0); Prothrombin Time 11.1 sec (9.0-12.0)
[2018-07-03 14:05] LABS: ALT 17 U/L (9-52); AST 18 U/L (14-36); Albumin 4.6 g/dL (3.5-5.0); Alkaline Phosphatase 41 U/L (38-126); Amylase 63 U/L (30-110); Anion Gap 8 mmol/L; Blood Urea Nitrogen 9 mg/dL (7-17); Calcium 9.9 mg/dL (8.4-10.2); Carbon Dioxide 22 mmol/L (22-30); Chloride 114 mmol/L (98-107); Glucose 99 mg/dL (74-99); Lipase 278 U/L (23-300); Sodium 144 mmol/L (137-145); Total Bilirubin 1.2 mg/dL (0.2-1.3); Total Protein 7.4 g/dL (6.3-8.2)
--- NOTE | 2018-07-03 14:05 | XR ---
EXAMINATION TYPE: XR KUB DATE OF EXAM: 07/03/2018 COMPARISON: NONE HISTORY: Abdominal pain TECHNIQUE: One view abdominal series FINDINGS: The osseous structures are intact. The bowel gas pattern is nonspecific. There are air-fluid levels in a few prominent scattered small bowel loops with a paucity of bowel gas. Hypertrophic changes invo lving the acetabulum and femoral head can be seen with femoral acetabular impingement. Correlate clin ically. Surgical clips in the abdomen are noted. IMPRESSION: 1. Multiple air-fluid levels with paucity of bowel gas can be seen with a partial obstruction or an e nteritis, ileus. Correlate clinically.
[2018-07-03 14:06] LABS: Potassium 3.9 mmol/L (3.5-5.1)
[2018-07-03 16:01] LABS: Appearance,Urine Clear (Clear); Bilirubin,Urine Negative (Negative); Blood,Urine Moderate (Negative); Color,Urine Yellow; Glucose,Urine (UA) Negative (Negative); Ketones,Urine Negative (Negative); Leukocyte Esterase,Urine Negative (Negative); Mucus,Urine Many /hpf; Nitrite,Urine Negative (Negative); Protein,Urine Trace (Negative); RBC,Urine 1 /hpf (0-5); Specific Gravity,Urine 1.018 (1.001-1.035); Squamous Epithelial Cell,Urine 6 /hpf (0-4); WBC,Urine 1 /hpf (0-5)
[2018-07-03] MEDS ORDERED: HYDROmorphone 0.5 MG/0.5 ML SYRINGE IVP PRN ×2 (16:30→20:04)
[2018-07-03] MEDS ORDERED: NALOXONE 0.4 MG/ML 1 ML VIAL IV PRN (16:30)
[2018-07-03] MEDS: SODIUM CHLORIDE 0.9% 1,000 ML IV SCH (20:28)
[2018-07-03] MEDS: HYDROmorphone 1 MG/ML 1 ML SYRINGE IVP PRN (23:20)
[2018-07-03] MEDS: ONDANSETRON 4 MG/2 ML VIAL IVP PRN (23:21)
--- NOTE | 2018-07-03 23:35 | HP ---
HISTORY AND PHYSICAL DATE OF ADMISSION: 07/03/2018. PRESENTING COMPLAINT: Abdominal pain, nausea, vomiting. HISTORY OF PRESENTING COMPLAINT: This is a 43-year-old patient who follows with Dr. Dobbins and Dr. Nagy the greens picker. Chronic stable medical conditions include osteoarthritis, rheumatoid arthritis, chronic diverticulosis, peripheral neuropathy, and esophagitis. The patient has an appointment at [facility] on August 11 where she is supposed to see a pancreatic specialist. The patient is known to have chronic pancreatitis. The patient was discharged 2 days ago when she had the usual cycle of nausea, vomiting, abdominal pain, and some diarrhea. The patient comes back again with the same combination of symptoms, having nausea, some vomiting, increasing abdominal pain, unable to keep anything down. She requested IV pain medications. The patient cannot keep anything else down, plus the pain is flared up. The patient has been seen by GI doctor, Dr. Nagy, on multiple admissions. No fever. No chills. REVIEW OF SYSTEMS: CONSTITUTIONAL: Tired. HEENT: None. RESPIRATORY: None. CARDIOVASCULAR: None. GASTROINTESTINAL: As above. GENITOURINARY: None. MUSCULOSKELETAL: Pain in different joints. DERMATOLOGICAL: None. HEMATOLOGIC: None. LYMPHATIC: None. PSYCHIATRY: Anxiety. NEUROLOGICAL: Numbness and tingling in hands and feet. PAST MEDICAL HISTORY: Chronic nonspecific colitis, rheumatoid arthritis, chronic pancreatitis, protein calorie malnutrition, chronic pain syndrome, esophagitis, left breast mass. PAST SURGICAL HISTORY: Cholecystectomy. SOCIAL HISTORY: No smoking, no alcohol. Occasionally does marijuana. Lives alone. FAMILY HISTORY: Hypertension. HOME MEDICATIONS: 1. Imitrex 100 mg daily p.r.n. 2. Zofran 8 mg t.i.d. p.r.n. 3. Omeprazole 20 mg p.o. daily. 4. Morphine sulfate immediate release 50 mg b.i.d. p.r.n. 5. MS Contin 30 mg orally every 8 hours. 6. Singulair 10 mg at bedtime. 7. Claritin 10 mg p.o. daily. 8. Creon 95858 units p.o. with meals t.i.d. 9. Humira pain 40 units subcu every 14 days. ALLERGIES: REGLAN. PHYSICAL EXAMINATION: Temperature 98.5, pulse 99, respirations 18, blood pressure 110/70, pulse ox 99 percent room air. GENERAL APPEARANCE: Thin built. BMI 17. Sitting at the edge of bed, awake, anxious- appearing. EYES: Pupils equal. Conjunctivae pale. HEENT: External nose and ears normal. Oral cavity dry. NECK: JVD not raised. Mass not palpable. Respiratory effort normal. LUNGS: Fair air entry. CARDIOVASCULAR: 1st and 2nd sounds normal. No edema. ABDOMEN: Soft. Some tenderness. No guarding or rigidity. Liver and spleen not palpable. LYMPHATIC: No lymph nodes palpable in the neck or axillae. PSYCHIATRY: Alert and oriented x3. Mood and affect slightly anxious. NEUROLOGICAL: Pupils equal. Cranial nerves grossly intact. Power and sensation grossly intact. MUSCULOSKELETAL: Some wasting of the muscles, loss of subcutaneous fat. INVESTIGATIONS: White count 7.2, hemoglobin 15.3 potassium 3.9. BUN and creatinine normal. UA sample was contaminated. ASSESSMENT: 1. Acute on chronic pancreatitis, clinically flared up, idiopathic. 2. Chronic esophagitis. 3. Nonspecific colitis, chronic. 4. Moderate protein-calorie malnutrition from decreased oral intake. 5. Chronic rheumatoid arthritis. 6. Left breast mass, being followed by Dr. Meghan Mcqueen. PLAN: Patient has been put on a Dilaudid. Clear liquids as tolerated. Also give a scopolamine patch. Care was discussed with the patient. Lovenox for DVT prophylaxis. We will yet again consult Pain Management Service for their input and GI, with whom she follows. FIDEL / SAYRAN: [id number] /
[2018-07-04] MEDS: HYDROmorphone 1 MG/ML 1 ML SYRINGE IVP PRN ×3 (02:34→09:53)
[2018-07-04] MEDS: SODIUM CHLORIDE 0.9% 1,000 ML IV SCH ×3 (05:21→18:03)
[2018-07-04] MEDS ORDERED: SCOPOLAMINE 1.5MG/72HR PATCH TRANSDERM SCH (07:30)
[2018-07-04] MEDS: LORATADINE 10 MG TAB PO SCH (08:13)
[2018-07-04] MEDS: PANTOPRAZOLE 40 MG TABLET PO SCH (08:14)
[2018-07-04] MEDS: ONDANSETRON 4 MG/2 ML VIAL IVP PRN (08:14)
[2018-07-04] MEDS: PROTEASE PO SCH ×3 (08:20→18:03)
[2018-07-04] MEDS: LIPASE PO SCH ×3 (08:20→18:03)
[2018-07-04] MEDS: AMYLASE PO SCH ×3 (08:20→18:03)
[2018-07-04] MEDS ORDERED: PANTOPRAZOLE 40 MG/10 ML VIAL IV SCH (09:00)
[2018-07-04] MEDS ORDERED: ENOXAPARIN 40 MG/0.4 ML SYRINGE SQ SCH (09:00)
[2018-07-04 09:16] LABS: Basophils % (A) 0 %; Eosinophils # (A) 0.1 k/uL (0-0.7); Eosinophils % (A) 1 %; HCT 38.7 % (34.0-46.0); HGB 12.6 gm/dL (11.4-16.0); Lymphocytes % (A) 41 %; MCH 31.4 pg (25.0-35.0); MCHC 32.6 g/dL (31.0-37.0); MCV 96.4 fL (80.0-100.0); Mean Platelet Volume 7.3; Monocytes # (A) 0.3 k/uL (0-1.0); Monocytes % (A) 5 %; Neutrophils # (A) 2.5 k/uL (1.3-7.7); Neutrophils % (A) 50 %; Platelet Count 206 k/uL (150-450); RBC 4.01 m/uL (3.80-5.40); RDW 13.7 % (11.5-15.5); WBC 5.1 k/uL (3.8-10.6)
[2018-07-04 09:37] LABS: ALT 15 U/L (9-52); AST 13 U/L (14-36); Albumin 3.9 g/dL (3.5-5.0); Alkaline Phosphatase 40 U/L (38-126); Amylase 58 U/L (30-110); Anion Gap 8 mmol/L; Blood Urea Nitrogen 8 mg/dL (7-17); Calcium 8.9 mg/dL (8.4-10.2); Carbon Dioxide 19 mmol/L (22-30); Chloride 115 mmol/L (98-107); Glucose 92 mg/dL (74-99); Lipase 176 U/L (23-300); Potassium 3.5 mmol/L (3.5-5.1); Sodium 142 mmol/L (137-145); Total Protein 6.2 g/dL (6.3-8.2)
--- NOTE | 2018-07-04 10:26 | P.CONS ---
History of Present Illness - Reason for Consult Consult date: 07/04/18 Abdominal pain Requesting physician: Fabian Healy - Chief Complaint Nausea vomiting - History of Present Illness 43-year-old female with a history of chronic abdominal pain' sees pain specialist, Crohn's colitis, cholecystectomy, gastroparesis, RA; humira, chronic pancreatitis admitted with acute abdominal pain. She's had multiple hospitalizations regarding abdominal pain and was referred to a [facility] April 2018. Seen in consultation Tuesday discharged Tuesday only to return last night with worsening epigastric abdominal pain nausea vomiting. White count 5.1. Hemoglobin 12.6. Amylase lipase LFTs within normal limits. No fever chills or hematemesis hematochezia melena. Multiple nonbloody bowel movements. Saw a Crohns specialist at [facility] last month MRCP performed patient reports finsdings "severe pancreatic damage". Pancreatic specialist referral scheduled August 11 at [facility]. Last dose of Humira last Tuesday. EGD colonoscopy August [address] Nagy mild antral gastritis evidence of chronic colitis with numerous pseudopolyps no mucosal inflammation seen in the colon or terminal ileum. KUB multiple air-fluid levels with paucity of gas can be seen with a partial obstruction or an enteritis ileus correlate clinically. Review of Systems Constitutional: Denies fever, chills, sweats, weight gain, or loss. HEENT: Negative for migraines, blurred vision or loss, earaches, drainage, tinnitus, oral mucosal lesions, dysphagia, or odynophagia. CARDIAC: Negative for chest pain, arrhythmias, or palpitation. RESPIRATORY: Negative for shortness of breath, hemoptysis, cough, or sputum production. GI: See HPI for pertinent findings. : Negative for hematuria, urgency, frequency, polyuria, or dysuria. GYNc: Negative vaginal discharge. MUSCULOSKELETAL: Negative for muscle aches, swelling, arthritis, and arthralgias. NEUROLOGIC: Negative for stroke or TIA. ENDOCRINE: Negative for thyroid problems. SKIN: Negative for rash or itching. PSYCHIATRIC: Negative history for depression and anxiety Past Medical History Past Medical History: Eye Disorder, GERD/Reflux, GI Bleed, Neurologic Disorder, Osteoarthritis (OA), Rheumatoid Arthritis (RA) Additional Past Medical History / Comment(s): Chronic pancreatitis, Crohn's disease, chronic esophagitis, blood in stool, diverticulosis, hx ulcers, frequent UTI'S, hx blood clots in left arm pt states d/t picc lines, hx anemia with numerous transfusions, hx kidney failure from dehydration 12 yrs ago, neuropathy, cataracts. History of Any Multi-Drug Resistant Organisms: None Reported Past Surgical History: Cholecystectomy Additional Past Surgical History / Comment(s): colonsocopies, EGDs Past Anesthesia/Blood Transfusion Reactions: No Reported Reaction Additional Past Anesthesia/Blood Transfusion Reaction / Comm: Has had about 13 blood transfusions-no reactions. Past Psychological History: No Psychological Hx Reported Additional Psychological History / Comment(s): pt lives with boy friend xuan. Smoking Status: Never smoker Past Alcohol Use History: Occasional Additional Past Alcohol Use History / Comment(s): past occ alcohol -quit 2008 Past Drug Use History: Marijuana Additional Drug Use History / Comment(s): Daily use-less than 1 joint. - Past Family History Father Family Medical History: Myocardial Infarction ([place]) Additional Family Medical History / Comment(s): Father had drug abuse problem. He of a [place] at the age of 61 yrs. Mother Family Medical History: Hypertension Additional Family Medical History / Comment(s): Mother is living. Medications and Allergies Home Medications Medication Instructions Recorded Confirmed Type SUMAtriptan SUCCINATE [Imitrex] 100 mg PO DAILY PRN 06/07/16 07/03/18 History Omeprazole 20 mg PO DAILY 08/05/16 07/03/18 History Ondansetron [Zofran ODT] 8 mg PO TID PRN 08/18/16 07/03/18 History Lipase/Protease/Amylase [Thor Ambrocio 72,000 units PO AC-TID 09/14/16 07/03/18 History 24,000 Units Capsule] Loratadine 10 mg PO DAILY 09/14/16 07/03/18 History Montelukast Sodium [Singulair] 10 mg PO HS 09/14/16 07/03/18 History Morphine Sulfate ER [Ms Contin] 30 mg PO Q8H 09/14/16 07/03/18 History Morphine Sulfate Ir [MSIR] 15 mg PO BID PRN 09/14/16 07/03/18 History Adalimumab [Humira Pen] 40 mg SQ [id number] 12/25/16 07/03/18 History Alendronate Sodium [Fosamax] 70 mg PO WE 05/31/18 07/03/18 History Allergies Allergy/AdvReac Type Severity Reaction Status Date / Time metoclopramide [From Reglan] AdvReac Intermediate Twitching Verified 07/03/18 13 :04 Physical Exam Vitals: Vital Signs Temp Pulse Pulse Resp BP BP Pulse Ox 07/04/18 07:00 96.3 F L 41 L 16 116/61 99 07/03/18 23:00 97.8 F 51 L 18 120/53 100 07/03/18 18:58 59 L 18 115/77 100 07/03/18 16:27 56 L 18 121/73 100 07/03/18 12:50 98.5 F 99 18 110/70 99 Intake and Output 07/03/18 07/04/18 07/04/18 22:59 06:59 14:59 Other: # Voids 1 1 # Bowel Movements 1 General appearance: The patient is alert, oriented, in no acute distress. HET: Head is normocephalic and atraumatic. Pupils are equal and reactive. Oropharynx is clear without lesions. Neck: Supple without lymphadenopathy. Trachea midline. Heart: S1 S2. Regular rate and rhythm. Lungs: No crackles or wheezes are heard. Abdomen: Soft, midepigastric tenderness, nondistended with bowel sounds. No peritoneal signs. No palpable organomegaly or masses. Extremities: Normal skin color and turgor. No cyanosis, rash, ulceration, clubbing, or edema. Radial and pedal pulses are 2/4 bilaterally. Neurological: No focal deficits. Strength and sensation are grossly intact. Results CBC & Chem 7: 07/04/18 08:38 07/04/18 08:38 Labs: Abnormal Lab Results - Last 24 Hours (Table) 07/03/18 07/03/18 07/03/18 Range/Units 13:37 13:37 15:34 Hct 46.5 H (34.0-46.0) % Chloride 114 H (98-107) mmol/L Carbon Dioxide (22-30) mmol/L AST (14-36) U/L Total Protein (6.3-8.2) g/dL Urine Protein Trace H (Negative) Urine Blood Moderate H (Negative) Ur Squamous Epith Cells 6 H (0-4) /hpf Urine Mucus Many H (None) /hpf 07/04/18 Range/Units 08:38 Hct (34.0-46.0) % Chloride 115 H (98-107) mmol/L Carbon Dioxide 19 L (22-30) mmol/L AST 13 L (14-36) U/L Total Protein 6.2 L (6.3-8.2) g/dL Urine Protein (Negative) Urine Blood (Negative) Ur Squamous Epith Cells (0-4) /hpf Urine Mucus (None) /hpf Abdominal x-ray: report reviewed (Dr. Rosales) Assessment and Plan (1) Epigastric abdominal pain Narrative/Plan: 43-year-old female with a history chronic pancreatitis presently seeing a specialist [facility] as well as underlying Crohn's colitis with multiple hospitalizations secondary to persistent midepigastric abdominal pain and intractable nausea vomiting without fever or bleeding. Current Visit: Yes Status: Acute Code(s): R10.13 - EPIGASTRIC PAIN SNOMED Code(s): 10851967 (2) Chronic abdominal pain Current Visit: No Status: Acute Code(s): R10.9 - UNSPECIFIED ABDOMINAL PAIN ; G89.29 - OTHER CHRONIC PAIN SNOMED Code(s): 354144900 (3) Intractable nausea and vomiting Current Visit: No Status: Acute Code(s): R11.2 - NAUSEA WITH VOMITING, UNSPECIFIED SNOMED Code(s): 361006123 (4) Crohns disease Current Visit: No Status: Chronic Code(s): K50.90 - CROHN'S DISEASE, UNSPECIFIED, WITHOUT COMPLICATIONS SNOMED Code(s): 19826268 (5) History of pancreatitis Current Visit: No Status: Resolved Code(s): Z87.19 - PERSONAL HISTORY OF OTHER DISEASES OF THE DIGESTIVE SYSTEM SNOMED Code(s): 51564558589008 Plan: 1. Clear liquids. Continue GI prophylaxis pancreas enzymes. Follow with [facility] specialist as previously advised. Nothing by mouth after midnight. EGD evaluation tomorrow patient receive Lovenox today. The cocoa bean roaster helper has discussed the risks, benefits and alternative therapies for the above-mentioned procedure and for both sedation/analgesia as well as necessary blood product administration, if indicated, as they pertain to this patient. The patient has indicated understanding and acceptance of the risks and procedures discussed. Thank you for this kind referral and the opportunity to participate in the care of your patient. This consultation was discussed with Dr. Velocci. The impression and plan of care have been directed as dictated.
[2018-07-04 12:53] VITALS: BMI 17.6
[2018-07-04] MEDS: HYDROmorphone 0.5 MG/0.5 ML SYRINGE IVP PRN ×3 (14:14→22:00)
--- NOTE | 2018-07-04 17:42 | PN ---
PROGRESS NOTE DATE OF SERVICE: 07/04/2018 PRESENTING COMPLAINT: Abdominal pain. INTERVAL HISTORY: This patient with chronic pancreatitis, acute flareup, increasing abdominal pain, was yet again admitted today, on IV pain medications. She was seen earlier today by Dr. Francisco Remy, who has offered her a celiac plexus block and also a fentanyl patch when she is having nausea and vomiting. Patient feels better today. Did tolerate some clear liquids. REVIEW OF SYSTEMS: Done for constitutional, cardiovascular, GI, pulmonary; relevant findings as above. CURRENT MEDICATIONS: Reviewed. They include: 1. IV Dilaudid. 2. Scopolamine patch. 3. Normal saline. PHYSICAL EXAMINATION: Temperature 96.3, pulse 41, respiration 18, blood pressure 116/61, pulse ox 99% on room air. GENERAL APPEARANCE: Sitting up. Comfortable. EYES: Pupils equal. Conjunctivae normal. NECK: JVD not raised. Mass not palpable. RESPIRATORY: Effort normal. Lungs are clear. CARDIOVASCULAR: First and second sounds normal. No edema. ABDOMEN: Soft, non-tender. Liver and spleen not palpable. PSYCHIATRY: Alert and oriented x3. Mood and affect slightly anxious. INVESTIGATIONS: White count 5.1, potassium 3.5. BUN and creatinine are normal. ASSESSMENT: 1. Acute on chronic pancreatitis, clinically flared up, idiopathic. 2. Chronic esophagitis. 3. Nonspecific colitis, chronic. 4. Moderate protein-calorie malnutrition from decreased oral intake. 5. Chronic rheumatoid arthritis. 6. Left breast mass, being followed by Dr. Meghan Mcqueen. PLAN: Discussed with Dr. Leyva and then discussed with the patient. Celiac plexus is a good solution for this. Also she may get a fentanyl patch when she gets these episodes to decrease her hospitalizations. Will discontinue the Lovenox for the procedures tomorrow. MMODL / IJN: [id number] /
--- NOTE | 2018-07-04 18:52 | P.PAINCN ---
History of Present Illness - Reason for Consult Consult date: 07/04/18 - History of Present Illness This is a 43-year-old female with a past medical history significant for chronic pancreatitis, gastroparesis, Crohn's disease currently on therapy with Humira and following up with an IBD specialist at the [facility], chronic pain syndrome , patient had multiple admissions to [facility] because of severe abdominal pain associated with nausea and vomiting, patient had chronic pain syndrome and she was followed up with Dr Nita abraham , and he was managing her pain medication , patient was getting MS Contin 30 mg every 8 hours and MSIR 15 mg every 12 hours , patient was not able to take any pain medication early because of severe nausea and vomiting , and currently she is on IV Dilaudid 0.5 mg to 1 mg every 3 hours The patient was recently seen at the [facility] where she had an MRCP performed which was negative for any biliary obstruction but did show signs of chronic pancreatitis. She has currently been referred for follow-up with a advanced endoscopist at [facility] for possible endoscopic ultrasound evaluation. She denies any use of tobacco or alcohol. She does take enzyme supplementation with meals. She reports that she has been unable to tolerate food and the vomiting is predominantly consistent of regurgitated food. Her amylase on presentation was found to be 52 and lipase was found to be 145. Review of Systems REVIEW OF SYSTEMS: CARDIO: Denies any chest pain or palpitations. PULMONARY: Denies any shortness of breath or wheezing. GENITOURINARY: No dysuria or hematuria. MUSCULOSKELETAL: No weakness reported. SKIN: Denies any new rashes or lesions, jaundice or pallor. PSYCHIATRIC: Denies any depression or anxiety. NEUROLOGY: Denies headache, denies any new focal deficits. EARS: No tinnitus, discharge or new hearing loss. NOSE: No discharge or congestion. EYES: No pain in eyes or change in vision. CONSTITUTIONAL: No recent weight loss. No fever, chills, night sweats. Physical Exam On physical examination, patient appears comfortable in no apparent distress. HEAD: Normocephalic, atraumatic. EYES: No scleral icterus. No conjunctival injection. MOUTH: No lesions, tongue midline. NECK: Trachea midline, no gross abnormalities. CHEST: Clear to auscultation with no wheezing or rhonchi appreciated. HEART: Regular rate and rhythm. ABDOMEN: Soft, tender to deep palpation. Bowel sounds are positive. No organomegaly. No guarding or rigidity. EXTREMITIES: No pedal edema. SKIN: No rashes, no jaundice. NEUROLOGIC: Alert and oriented x3. No focal deficits. Assessment and Plan (1) Acute on chronic pancreatitis (2) Abdominal pain Patient was managed as an outpatient with MS Contin 30 mg every 8 hours and MSIR 15 mg every 12 hours , patient was getting prescription for her pain medication from the Dr. Moya's office and she was following up with his practice ,currently since she was admitted to [facility], she was not able to take any oral medication because of severe nausea and vomiting, and she is currently on IV Dilaudid, I recommend to discontinue oral pain medication patient could benefit from fentanyl patch 50 g every 72 hours, and also patient could be a good candidate to have a celiac plexus block, procedure risk and benefits and alternative discussed with the patient and she agreed with the preceding, recommend hold Lovenox for tomorrow a.m. Past Medical History Past Medical History: Eye Disorder, GERD/Reflux, GI Bleed, Neurologic Disorder, Osteoarthritis (OA), Rheumatoid Arthritis (RA) Additional Past Medical History / Comment(s): Chronic pancreatitis, Crohn's disease, chronic esophagitis, blood in stool, diverticulosis, hx ulcers, frequent UTI'S, hx blood clots in left arm pt states d/t picc lines, hx anemia with numerous transfusions, hx kidney failure from dehydration 12 yrs ago, neuropathy, cataracts. History of Any Multi-Drug Resistant Organisms: None Reported Past Surgical History: Cholecystectomy Additional Past Surgical History / Comment(s): colonsocopies, EGDs Past Anesthesia/Blood Transfusion Reactions: No Reported Reaction Additional Past Anesthesia/Blood Transfusion Reaction / Comm: Has had about 13 blood transfusions-no reactions. Past Psychological History: No Psychological Hx Reported Additional Psychological History / Comment(s): pt lives with boy friend xuan. Smoking Status: Never smoker Past Alcohol Use History: Occasional Additional Past Alcohol Use History / Comment(s): past occ alcohol -quit 2008 Past Drug Use History: Marijuana Additional Drug Use History / Comment(s): Daily use-less than 1 joint. - Past Family History Father Family Medical History: Myocardial Infarction ([place]) Additional Family Medical History / Comment(s): Father had drug abuse problem. He of a [place] at the age of 61 yrs. Mother Family Medical History: Hypertension Additional Family Medical History / Comment(s): Mother is living. Medications and Allergies Home Medications Medication Instructions Recorded Confirmed Type SUMAtriptan SUCCINATE [Imitrex] 100 mg PO DAILY PRN 06/07/16 07/03/18 History Omeprazole 20 mg PO DAILY 08/05/16 07/03/18 History Ondansetron [Zofran ODT] 8 mg PO TID PRN 08/18/16 07/03/18 History Lipase/Protease/Amylase [Thor Dr 72,000 units PO AC-TID 09/14/16 07/03/18 History 24,000 Units Capsule] Loratadine 10 mg PO DAILY 09/14/16 07/03/18 History Montelukast Sodium [Singulair] 10 mg PO HS 09/14/16 07/03/18 History Morphine Sulfate ER [Ms Contin] 30 mg PO Q8H 09/14/16 07/03/18 History Morphine Sulfate Ir [MSIR] 15 mg PO BID PRN 09/14/16 07/03/18 History Adalimumab [Humira Pen] 40 mg SQ [id number] 12/25/16 07/03/18 History Alendronate Sodium [Fosamax] 70 mg PO WE 05/31/18 07/03/18 History Allergies Allergy/AdvReac Type Severity Reaction Status Date / Time metoclopramide [From Reglan] AdvReac Intermediate Twitching Verified 07/03/18 13 :04 Physical Exam Vitals: Vital Signs Temp Pulse Pulse Resp BP BP Pulse Ox 07/04/18 15:14 16 07/04/18 15:00 97.5 F L 47 L 16 96/56 99 07/04/18 07:00 96.3 F L 41 L 16 116/61 99 07/03/18 23:00 97.8 F 51 L 18 120/53 100 07/03/18 18:58 59 L 18 115/77 100 Intake and Output 07/04/18 07/04/18 07/04/18 06:59 14:59 22:59 Other: # Voids 1 4 Weight 50.5 kg Results CBC & Chem 7: 07/04/18 08:38 07/04/18 08:38 Labs: Abnormal Lab Results - Last 24 Hours (Table) 01/15/19 Range/Units 08:38 Chloride 115 H (98-107) mmol/L Carbon Dioxide 19 L (22-30) mmol/L AST 13 L (14-36) U/L Total Protein 6.2 L (6.3-8.2) g/dL PQRS Measure Charge Sheet PQRS Narrative: Smoking Status Never smoker Do You Want the Pneumonia Vaccine Up to Date Vaccine AT THIS TIME? Blood Pressure [Left Arm] 96/56 Blood Pressure 115/77 Pain Intensity [Upper Abdomen] 0 Pain Intensity 0 Pain Scale Used Numeric (1 - 10) Scale Used Numeric (1 - 10) Home Medications: Ambulatory Orders SUMAtriptan SUCCINATE [Imitrex] 100 mg PO DAILY PRN 06/07/16 Omeprazole 20 mg PO DAILY 08/05/16 Ondansetron [Zofran ODT] 8 mg PO TID PRN 08/18/16 Lipase/Protease/Amylase [Creon Dr 24,000 Units Capsule] 72,000 units PO AC-TID 09/14/16 Loratadine 10 mg PO DAILY 09/14/16 Montelukast Sodium [Singulair] 10 mg PO HS 09/14/16 Morphine Sulfate ER [Ms Contin] 30 mg PO Q8H 09/14/16 Morphine Sulfate Ir [MSIR] 15 mg PO BID PRN 09/14/16 Adalimumab [Humira Pen] 40 mg SQ [id number] 12/25/16 Alendronate Sodium [Fosamax] 70 mg PO WE 05/31/18
[2018-07-04] MEDS: MONTELUKAST 10 MG TAB PO SCH ×2 (22:04→22:46)
[2018-07-04] MEDS: SODIUM CHLORIDE 0.9% 500 ML 500 ML IV SCH (22:04)
[2018-07-05] MEDS: ONDANSETRON 4 MG/2 ML VIAL IVP PRN ×2 (03:03→13:54)
[2018-07-05] MEDS: HYDROmorphone 0.5 MG/0.5 ML SYRINGE IVP PRN ×5 (03:04→21:06)
[2018-07-05] MEDS: SODIUM CHLORIDE 0.9% 1,000 ML IV SCH ×3 (06:45→18:11)
[2018-07-05] MEDS: PROTEASE PO SCH ×4 (08:24→18:07)
[2018-07-05] MEDS: LORATADINE 10 MG TAB PO SCH (08:24)
[2018-07-05] MEDS: AMYLASE PO SCH ×4 (08:24→18:07)
[2018-07-05] MEDS: LIPASE PO SCH ×4 (08:24→18:07)
[2018-07-05] MEDS: PANTOPRAZOLE 40 MG TABLET PO SCH (08:24)
[2018-07-05] MEDS ORDERED: IV FLUID CONTINUATION 900 ML IV ONE (11:40)
[2018-07-05] MEDS ORDERED: LIDOCAINE 1% INJ 10MG/ML (20 ML MDV) ONE (12:59)
[2018-07-05] MEDS ORDERED: IV FLUID CONTINUATION 1,000 ML IV ONE (12:59)
[2018-07-05] MEDS ORDERED: PROPOFOL 10 MG/ML 20 ML VIAL IV ONE (12:59)
--- NOTE | 2018-07-05 13:09 | P.PCN ---
Date of Procedure: 07/05/18 Description of Procedure: Celiac Plexus Block with fluoroscopy Date of the procedure: PREOPERATIVE DIAGNOSIS: 1. Epigastric pain 2. intractable abdominal pain. POSTOPERATIVE DIAGNOSIS: Same as above PROCEDURE: Diagnostic celiac plexus block. SURGEON: David Márquez MD ANESTHESIA: Local anesthesia with 1% lidocaine 5 ML's, IV conscious sedation 2 mg Versed and 100 g fentanyl EBL: Minimal IV FLUIDS: Approximately 500 mL of crystalloid. PROCEDURE INDICATION: The patient has a history of abdominal pain PROCEDURE DESCRIPTION: The patient was seen and identified in the preoperative area. Risks, benefits, complications, and alternatives were discussed with the patient. The patient agreed to proceed with the procedure and signed the consent. IV was started, and vital signs were stable. Patient was taken to the OR and time out was completed.The patient was placed in the prone position on procedure table and a pillow was placed under the abdomen to reduce lumbar lordosis. The lumbosacral area was prepped and draped in the usual sterile fashion. Critical pause was taken. Vital signs were closely monitored during the procedure. Conscious sedation was used during the procedure to decrease patients anxiety. The procedure was performed in a similar fashion on the right side and on the left side. Using anterior-posterior fluoroscopy, the L1 spinous process and vertebral body were identified. Then, the fluoroscope was turned obliquely until the transverse process of L1 vertebra was totally behind the L1 vertebral body. Skin was then marked and infiltrated with Lidocaine 1% subcutaneously with a 25-guage needle at the level of the L1 vertebral body. Subsequently, a 22 -guage 5-inch /7-inch spinal needles was inserted and advanced toward the the anterior side of the L1 vertebral body under oblique fluoroscopic guidance and while keeping a ``tunnel view of the needle. Subsequently, 3 ml of the water soluble dye Omnipaque was injected under life fluoroscopy to confirm needle position. The spread of the dye along the anterior side of the L1 vertebral body was verified with AP and latter fluoroscopy. After satisfactory positioning of the needle and negative aspiration for CSF, blood, or any other contents, a total of 15 mL of 0.5% preservative-free bupivacaine with epinephrine 1: 200,000 was injected. One mL was injected with no change in resting heart rate, and no change in blood pressure. There was no washout noted to the aorta. Under live fluoroscopy contrast was overlying the anterior aspect of the aorta with no washout. Then I injected versus solution with 5 ml increments and intermittent aspiration which was negative for blood. Washout of the dye was seen and the needle was then withdrawn intact. A total of 15 ml of 0.5% preservative-free bupivacaine was used during the procedure.At the end of the procedure, the operated areas were cleaned. Band-Aids were applied. COMPLICATIONS: None. COMMENTS: DISPOSITION / PLANS: The patient was placed in a supine position and transferred to the recovery area in a stable condition for observation and was discharged from the recovery room after meeting discharge criteria.Home discharge instructions given to the patient by the staff.The patient was reexamined prior to discharge. She will present to pain clinic for follow-up.
--- NOTE | 2018-07-05 13:40 | P.PCN ---
Date of Procedure: 07/05/18 Description of Procedure: BRIEF HISTORY: Patient is a 43-year-old, pleasant, female patient with a known history of Crohn 's disease and chronic pancreatitis who is had multiple admissions for complaints of abdominal pain. The patient has been treated in the past for acute on chronic pancreatitis however she has had recurrent episodes of pain with nausea and vomiting. PROCEDURE PERFORMED: Esophagogastroduodenoscopy with biopsies. PREOPERATIVE DIAGNOSIS: Nausea and vomiting, epigastric abdominal pain. ESTIMATED BLOOD LOSS: Minimal. IV sedation per anesthesia. PROCEDURE: After informed consent was obtained, the patient was brought into the endoscopy unit. IV sedation was administered by Anesthesia under continuous monitoring. Initially the Olympus GIF-190 video endoscope was inserted into the mouth. Esophagus intubated without any difficulty. It was gradually advanced into the stomach and duodenum and carefully examined. The bulb and the second part of the duodenum appeared normal with biopsies taken. The scope at this time was withdrawn to the stomach, adequately insufflated with air, and upon careful examination, mucosa of the antrum, body, cardia and the fundus appeared normal, with some mild scattered erythema in the antrum and body suggestive of gastritis which was biopsied. The scope was then withdrawn into the esophagus. The GE junction was located at 39 cm from the incisors. The esophagus appeared normal. There were no erosions or ulcerations seen and the patient tolerated the procedure well. IMPRESSION: 1. Mild gastritis of the antrum and body, biopsied. 2. Duodenal biopsies. RECOMMENDATIONS: The findings of this examination were discussed with the patient. Okay for diet as tolerated. Await pathology from biopsies. Continue with current management.
[2018-07-05] MEDS ORDERED: SODIUM CHLORIDE 0.9% 500 ML 500 ML IV ONE (13:48)
[2018-07-05 14:39] VITALS: RESP 18
--- NOTE | 2018-07-05 16:01 | FL ---
Fluoroscopy HISTORY: Pain 53 seconds fluoroscopy time supplied to the referring clinician. 3 intraoperative C-arm images docum ent the procedure. See dictated report from anesthesia.
[2018-07-05] MEDS: MONTELUKAST 10 MG TAB PO SCH (20:46)
--- NOTE | 2018-07-06 00:52 | PN ---
PROGRESS NOTE DATE OF SERVICE: 07/05/2018. PRESENTING COMPLAINT: Abdominal pain. INTERVAL HISTORY: This patient has chronic pancreatitis, acute flare of increasing abdominal pain, was admitted for the same. Today patient did undergo EGD that showed mild gastritis. Also did undergo diagnostic celiac plexus block. The patient appears rather comfortable, sitting up on the bed. The patient also was started on fentanyl patch by Dr. Leyva. The patient did tolerate liquids. REVIEW OF SYSTEMS: Done for constitutional, cardiovascular, GI, pulmonary; relevant findings as above. CURRENT MEDICATIONS: Include scopolamine patch, fentanyl patch. PHYSICAL EXAMINATION: VITAL SIGNS: Temperature 97.4 pulse 58, respirations 18, blood pressure 123/77, pulse ox 100 percent on room air. GENERAL APPEARANCE: Sitting on the bed, comfortable. EYES: Conjunctivae normal. NECK: JVD not raised. Mass not palpable. Respiratory effort normal. LUNGS: Clear. CARDIOVASCULAR: 1st and 2nd heart sounds normal. No edema. ABDOMEN: Soft, nontender. Liver and spleen not palpable. PSYCHIATRY: Alert and oriented x3. Mood and affect normal. INVESTIGATIONS: No blood work from today. ASSESSMENT: 1. Acute on chronic pancreatitis, clinical flare, idiopathic. 2. Chronic esophagitis. 3. Nonspecific colitis, chronic. 4. Moderate protein-calorie malnutrition from decreased oral intake. 5. Chronic rheumatoid arthritis. 6. Left breast mass, being followed by Dr. Meghan Mcqueen. 7. Acute on chronic pain. The patient is status post diagnostic celiac plexus block today. Also on fentanyl patch. PLAN: We will stop patient's Dilaudid. Diet to be advanced as tolerated. The patient can be discharged tomorrow. MMODL / IJN: [id number] /
[2018-07-06] MEDS: HYDROmorphone 0.5 MG/0.5 ML SYRINGE IVP PRN ×2 (03:06→05:45)
[2018-07-06] MEDS: SODIUM CHLORIDE 0.9% 500 ML 500 ML IV SCH (05:22)
[2018-07-06] MEDS: PROTEASE PO SCH ×2 (07:50→11:54)
[2018-07-06] MEDS: LIPASE PO SCH ×2 (07:50→11:54)
[2018-07-06] MEDS: LORATADINE 10 MG TAB PO SCH (07:50)
[2018-07-06] MEDS: AMYLASE PO SCH ×2 (07:50→11:54)
[2018-07-06] MEDS: PANTOPRAZOLE 40 MG TABLET PO SCH (07:50)
[2018-07-06 07:52] VITALS: BP 120/56; PULSE 48; TEMP 97.1
[2018-07-06] MEDS ORDERED: MORPHINE SULFATE ER 30 MG TABLET PO SCH (14:00)
--- NOTE | 2018-07-10 07:06 | DS ---
DISCHARGE SUMMARY DATE OF ADMISSION: 07/03/2018 DATE OF DISCHARGE: 07/06/2018 FINAL DIAGNOSES: 1. Acute on chronic pancreatitis, idiopathic. 2. Chronic esophagitis. 3. Nonspecific colitis, chronic. 4. Moderate protein-calorie malnutrition from decreased oral intake. 5. Chronic rheumatoid arthritis. 6. Left breast mass being followed by Dr. Meghan Mcqueen. 7. Chronic pain syndrome. CONSULTATION: 1. Dr. Marya Leyva from Pain Management. 2. Dr. Rosales from GI. PROCEDURE: 1. Celiac plexus block. 2. EGD. HOSPITAL COURSE: This patient had multiple admissions for pain management for abdominal pain requiring IV Dilaudid, yet again presented with the same picture, nausea, vomiting, abdominal pain, wanting IV Dilaudid. Discussed with Dr. Leyva. We did start also patient on celiac plexus block and the plan is that the patient will follow up with her regular pain management doctor, Dr. Moya, and to be prescribed a fentanyl patch when she gets these episodes to prevent these multiple admissions. A copy of this dictation will be sent to Dr. Moya. This was explained in detail to the patient. The patient has a followup appointment at [facility] on August 11. Patient is tolerating a liquid diet. On examination, abdomen soft, nontender. PSYCH: Alert and oriented x3, patient is up and about. DISCHARGE MEDICATIONS: 1. Imitrex 100 mg daily p.r.n. 2. Omeprazole 20 mg p.o. daily. 3. Zofran 8 mg p.o. t.i.d. p.r.n. 4. Creon 24,000 three capsules p.o. a.c. t.i.d. 5. Claritin 10 mg a day. 6. Singulair 10 mg q.h.s. 7. MS Contin 30 mg q.8. 8. Morphine sulfate immediate release 50 mg p.o. b.i.d. p.r.n. 9. Humira Pen every 14 days. Special note, patient is to use a fentanyl patch to be dosed by Dr. Moya when patient gets this nausea, vomiting. FOLLOWUP: Follow up with Dr. Leyva in 1 week. Follow up with Dr. Dobbins in 3 days. Follow up with Dr. Moya on 07/17/2018. Discussion and discharge planning more than 35 minutes. MMODL / IJN: [id number] /
== END 2018-07-06 14:48 | disposition home or self-care (01) ==
LOC: EC 12:48 → 4MS4W 16:37
PROVIDERS: ADMIT Hospitalist; ATTEND Hospitalist
DX: K85.00 Idiopathic acute pancreatitis without necrosis or infection (principal); K86.1 Other chronic pancreatitis; K21.0 Gastro-esophageal reflux disease with esophagitis; E44.0 Moderate protein-calorie malnutrition; M06.9 Rheumatoid arthritis, unspecified; K31.84 Gastroparesis; G89.4 Chronic pain syndrome; N63.20 Unspecified lump in the left breast, unspecified quadrant; K29.50 Unspecified chronic gastritis without bleeding; K50.90 Crohn's disease, unspecified, without complications; G62.9 Polyneuropathy, unspecified; K57.90 Diverticulosis of intestine, part unspecified, without perforation or abscess without bleeding; M19.90 Unspecified osteoarthritis, unspecified site; Z79.83 Long term (current) use of bisphosphonates; Z79.899 Other long term (current) drug therapy; Z79.891 Long term (current) use of opiate analgesic; Z88.8 Allergy status to other drugs, medicaments and biological substances; Z82.49 Family history of ischemic heart disease and other diseases of the circulatory system; Z87.440 Personal history of urinary (tract) infections; Z90.49 Acquired absence of other specified parts of digestive tract
CPT/HCPCS: 96376 ×4; 96360; 96361 ×4; 96372; 96374; 96375; 99285; 36415; 81025 ×2; 88305; 80053 ×2; 82150 ×2; 83690 ×2; 85025 ×2; 85610; 85730; 81001; 74018; 64530; 43239; G0378 ×4; J2250; J2405 ×3; J2001; J1650; J3010; J1170 ×6; J2704; C9113; Q9966; 64413; 99152

== ENCOUNTER → 2018-08-08 | Outpatient (CLI) | payer OTHER ==
[2018-08-08 13:36] VITALS: BP 118/70; PULSE 88; RESP 16; TEMP 98.3
--- NOTE | 2018-08-08 13:51 | P.PN ---
Subjective Progress Note Date: 08/08/18 Noemí is a 43-year-old female who presents today for follow-up appointment. She recently had a celiac plexus block for chronic pancreatitis was she was in the hospital. She reports that this block did not make any improvement in her pain. She followed up with us today just in case. She is following up with a specialist of the [facility]. Any new changes in her health she continues to have abdominal pain going across her belly and into her back. She has chronic pancreatitis and Crohn's disease. She denies any side effects or any problems from the celiac plexus block Objective - Vital Signs Vital signs: Vital Signs Temp 98.3 F 08/08/18 13:28 Pulse 88 08/08/18 13:28 Resp 16 08/08/18 13:28 BP 118/70 08/08/18 13:28 Pulse Ox Intake & Output 08/07/18 08/08/18 08/08/18 18:59 06:59 18:59 Weight 45.359 kg - Exam PHYSICAL EXAM: Constitutional: Awake and alert no distress Cardiovascular exam: Regular rate, no lower extremity edema, palpable pulses bilaterally Respiratory exam: No audible wheezing, no accessory muscle usage Abdominal exam: Soft, tender to deep palpation. Bowel sounds are active. Muscular skeletal exam: - Cervical spine: Nontender to palpation bilaterally. Range of motion is not limited. Spurling is negative bilateral. Facet loading is negative bilaterally - Lumbar spine: Preserved lumbar lordosis. No changes in skin. Nontender palpation bilateral. Patient has full range of motion in flexion and extension as well as lateral sidebending. Straight leg raise is negative. Facet loading is negative. Nontender over the SI joints. Neuro exam: Normal sensation bilateral upper and lower extremities. Deep tendon reflexes are 2+ bilaterally. Castillo's is negative Psychiatric exam: Cooperative, good insight Assessment and Plan Assessment: #1 chronic pancreatitis #2 Crohn's disease Plan: Since patient did not have good relief from the injection will not repeated. I discussed with her potential dietary changes including a low carbohydrate diet rate of more about it. She can follow up with us as needed
== END ==
LOC: PNWHC3 13:11
PROVIDERS: ATTEND Hospitalist
DX: K86.1 Other chronic pancreatitis (principal); K50.90 Crohn's disease, unspecified, without complications
CPT/HCPCS: 99211

== ENCOUNTER 2018-08-25 07:27 | Inpatient (IN) | payer OTHER ==
[2018-08-25] MEDS ORDERED: ONDANSETRON 4 MG/2 ML VIAL IVP STA ×2 (07:45→08:51)
[2018-08-25] MEDS ORDERED: SODIUM CHLORIDE 0.9% 2,000 ML IV STA (07:45)
[2018-08-25] MEDS ORDERED: SODIUM CHLORIDE 0.9% 1,000 ML IV STA (07:45)
[2018-08-25] MEDS ORDERED: HYDROmorphone 1 MG/ML 1 ML SYRINGE IVP STA (07:45)
--- NOTE | 2018-08-25 07:49 | ED ---
Abdominal Pain HPI - General Chief Complaint: Abdominal Pain Stated Complaint: abdominal pain/vomiting Time Seen by Provider: 08/25/18 07:36 Source: patient, RN notes reviewed Mode of arrival: ambulatory Limitations: no limitations - History of Present Illness Initial Comments: This is a 41-year-old female history of chronic pancreatitis Crohn's disease a history of multiple recurrent episodes of abdominal pain and nausea vomiting with diarrhea who states she had the onset approximately 2 hours ago of severe upper abdominal pain. She states pain was more like pressure 9-10/10 in severity again associated with nausea vomiting diarrhea she denies any lightheadedness or dizziness at this time she states this feels much like her previous recurrences. No new problems or modifying factors. No fevers chills or sweats. MD Complaint: abdominal pain, other - Related Data Home Medications Medication Instructions Recorded Confirmed SUMAtriptan SUCCINATE [Imitrex] 100 mg PO DAILY PRN 06/07/16 08/25/18 Omeprazole 20 mg PO BID 08/05/16 08/25/18 Ondansetron [Zofran ODT] 8 mg PO Q8H PRN 08/18/16 08/25/18 Loratadine 10 mg PO DAILY 09/14/16 08/25/18 Montelukast Sodium [Singulair] 10 mg PO HS 09/14/16 08/25/18 Morphine Sulfate ER [Ms Contin] 30 mg PO Q8H 09/14/16 08/25/18 Morphine Sulfate Ir [MSIR] 15 mg PO BID PRN 09/14/16 08/25/18 Adalimumab [Humira Pen] 40 mg SQ [id number] 12/25/16 08/25/18 Lipase/Protease/Amylase [Thor Ambrocio 36,000 units PO AC-TID 08/25/18 08/25/18 36,000 Units Capsule] Allergies Allergy/AdvReac Type Severity Reaction Status Date / Time metoclopramide [From Reglan] AdvReac Intermediate Twitching Verified 08/25/18 08:29 Review of Systems ROS Statement: Those systems with pertinent positive or pertinent negative responses have been documented in the HPI. ROS Other: All systems not noted in ROS Statement are negative. Past Medical History Past Medical History: Eye Disorder, GERD/Reflux, GI Bleed, Neurologic Disorder, Osteoarthritis (OA), Rheumatoid Arthritis (RA) Additional Past Medical History / Comment(s): Chronic pancreatitis, Crohn's disease, chronic esophagitis, blood in stool, diverticulosis, hx ulcers, frequent UTI'S, hx blood clots in left arm pt states d/t picc lines, hx anemia with numerous transfusions, hx kidney failure from dehydration 12 yrs ago, neuropathy, cataracts. History of Any Multi-Drug Resistant Organisms: None Reported Past Surgical History: Cholecystectomy Additional Past Surgical History / Comment(s): colonsocopies, EGDs Past Anesthesia/Blood Transfusion Reactions: No Reported Reaction Additional Past Anesthesia/Blood Transfusion Reaction / Comment(s): Has had about 13 blood transfusions-no reactions. Past Psychological History: No Psychological Hx Reported Smoking Status: Never smoker Past Alcohol Use History: None Reported Past Drug Use History: None Reported - Past Family History Father Family Medical History: Myocardial Infarction (CT) Additional Family Medical History / Comment(s): Father had drug abuse problem. He of a CT at the age of 61 yrs. Mother Family Medical History: Hypertension Additional Family Medical History / Comment(s): Mother is living. General Exam - General Exam Comments Initial Comments: This is a well-developed asthenic appearing female who is awake alert oriented 3 Limitations: no limitations General appearance: alert, anxious, in distress Head exam: Present: atraumatic, normocephalic, normal inspection Eye exam: Present: normal appearance, PERRL, EOMI. Absent: scleral icterus, conjunctival injection, periorbital swelling ENT exam: Present: mucous membranes dry Neck exam: Present: normal inspection, full ROM. Absent: tenderness, meningismus, lymphadenopathy Respiratory exam: Present: normal lung sounds bilaterally. Absent: respiratory distress, wheezes, rales, rhonchi, stridor Cardiovascular Exam: Present: regular rate, normal rhythm, normal heart sounds. Absent: systolic murmur, diastolic murmur, rubs, gallop, clicks GI/Abdominal exam: Present: soft, tenderness (Upper abdominal/epigastric tenderness), normal bowel sounds. Absent: distended, guarding, rebound, rigid, bruit, pulsatile mass Rectal exam: Present: deferred Extremities exam: Present: normal inspection, full ROM, normal capillary refill. Absent: tenderness, pedal edema, joint swelling, calf tenderness Back exam: Present: normal inspection Neurological exam: Present: alert, oriented X3, CN II-XII intact Psychiatric exam: Present: normal affect, normal mood Skin exam: Present: warm, dry, intact, normal color. Absent: rash Course Vital Signs 08/25/18 07:29 Temperature 98 F Pulse Rate 75 Respiratory 22 Rate Blood Pressure 113/78 O2 Sat by Pulse 100 Oximetry Medical Decision Making - Medical Decision Making Patient persisted having abdominal pain in spite of medications and is still nauseated. I did discuss the case with the patient and her as well as Dr. Healy patient will be admitted the presentation is consistent with her chronic pancreatitis/abdominal pain. Some dissociative dose of ketamine will be tried for pain control. - Lab Data Result diagrams: 08/25/18 08:12 08/25/18 08:12 Lab Results 08/25/18 08/25/18 08/25/18 Range/Units 08:12 08:12 08:12 WBC 11.4 H (3.8-10.6) k/uL RBC 5.31 (3.80-5.40) m/uL Hgb 15.8 D (11.4-16.0) gm/dL Hct 49.9 H (34.0-46.0) % MCV 94.1 (80.0-100.0) fL MCH 29.9 (25.0-35.0) pg MCHC 31.7 (31.0-37.0) g/dL RDW 14.1 (11.5-15.5) % Plt Count 344 (150-450) k/uL Neutrophils % 83 % Lymphocytes % 11 % Monocytes % 5 % Eosinophils % 0 % Basophils % 0 % Neutrophils # 9.4 H (1.3-7.7) k/uL Lymphocytes # 1.2 (1.0-4.8) k/uL Monocytes # 0.6 (0-1.0) k/uL Eosinophils # 0.0 (0-0.7) k/uL Basophils # 0.0 (0-0.2) k/uL Sodium 139 (137-145) mmol/L Potassium 4.1 (3.5-5.1) mmol/L Chloride 105 (98-107) mmol/L Carbon Dioxide 21 L (22-30) mmol/L Anion Gap 13 mmol/L BUN 12 (7-17) mg/dL Creatinine 0.64 (0.52-1.04) mg/dL Est GFR (CKD-EPI)AfAm >90 (>60 ml/min/1.73 sqM) Est GFR (CKD-EPI)NonAf >90 (>60 ml/min/1.73 sqM) Glucose 97 (74-99) mg/dL Calcium 11.4 H (8.4-10.2) mg/dL Magnesium 1.7 (1.6-2.3) mg/dL Total Bilirubin 1.1 (0.2-1.3) mg/dL AST 22 (14-36) U/L ALT 34 (9-52) U/L Alkaline Phosphatase 84 (38-126) U/L Total Protein 8.8 H (6.3-8.2) g/dL Albumin 5.3 H (3.5-5.0) g/dL Amylase 66 (30-110) U/L Lipase 116 (23-300) U/L Urine Color Yellow Urine Appearance Cloudy H (Clear) Urine pH 6.0 (5.0-8.0) Ur Specific [place] 1.023 (1.001-1.035) Urine Protein 1+ H (Negative) Urine Glucose (UA) Negative (Negative) Urine Ketones 3+ H (Negative) Urine Blood Trace H (Negative) Urine Nitrite Negative (Negative) Urine Bilirubin Negative (Negative) Urine Urobilinogen 2.0 (<2.0) mg/dL Ur Leukocyte Esterase Trace H (Negative) Urine RBC 12 H (0-5) /hpf Urine WBC 7 H (0-5) /hpf Ur Squamous Epith Cells 34 H (0-4) /hpf Urine Mucus Many H (None) /hpf - Radiology Data Radiology results: report reviewed (I did review the imaging and report no acute findings.), image reviewed Disposition Clinical Impression: Abdominal pain, Intractable vomiting, Pancreatitis, chronic, Intractable abdominal pain Disposition: ADMITTED IP TO THIS [facility] Condition: Serious Referrals: Derek Dobbins MD [Primary Care Provider] - 1-2 days
[2018-08-25 08:26] LABS: Appearance,Urine Cloudy (Clear); Bilirubin,Urine Negative (Negative); Blood,Urine Trace (Negative); Color,Urine Yellow; Glucose,Urine (UA) Negative (Negative); Ketones,Urine 3+ (Negative); Leukocyte Esterase,Urine Trace (Negative); Mucus,Urine Many /hpf; Nitrite,Urine Negative (Negative); Protein,Urine 1+ (Negative); RBC,Urine 12 /hpf (0-5); Specific Gravity,Urine 1.023 (1.001-1.035); Squamous Epithelial Cell,Urine 34 /hpf (0-4); WBC,Urine 7 /hpf (0-5)
[2018-08-25 08:32] LABS: Basophils % (A) 0 %; Eosinophils % (A) 0 %; HCT 49.9 % (34.0-46.0); Lymphocytes # (A) 1.2 k/uL (1.0-4.8); Lymphocytes % (A) 11 %; MCH 29.9 pg (25.0-35.0); MCHC 31.7 g/dL (31.0-37.0); MCV 94.1 fL (80.0-100.0); Mean Platelet Volume 6.2; Monocytes # (A) 0.6 k/uL (0-1.0); Monocytes % (A) 5 %; Neutrophils # (A) 9.4 k/uL (1.3-7.7); Neutrophils % (A) 83 %; Platelet Count 344 k/uL (150-450); RBC 5.31 m/uL (3.80-5.40); RDW 14.1 % (11.5-15.5); WBC 11.4 k/uL (3.8-10.6)
[2018-08-25 08:37] LABS: ALT 34 U/L (9-52); AST 22 U/L (14-36); Albumin 5.3 g/dL (3.5-5.0); Alkaline Phosphatase 84 U/L (38-126); Amylase 66 U/L (30-110); Anion Gap 13 mmol/L; Blood Urea Nitrogen 12 mg/dL (7-17); Calcium 11.4 mg/dL (8.4-10.2); Carbon Dioxide 21 mmol/L (22-30); Chloride 105 mmol/L (98-107); Glucose 97 mg/dL (74-99); Lipase 116 U/L (23-300); Magnesium 1.7 mg/dL (1.6-2.3); Potassium 4.1 mmol/L (3.5-5.1); Sodium 139 mmol/L (137-145); Total Bilirubin 1.1 mg/dL (0.2-1.3); Total Protein 8.8 g/dL (6.3-8.2)
[2018-08-25 08:42] LABS: HGB 15.8 gm/dL (11.4-16.0)
--- NOTE | 2018-08-25 08:49 | XR ---
EXAMINATION TYPE: XR KUB DATE OF EXAM: 08/25/2018 8:30 AM CLINICAL HISTORY: Nausea and vomiting with history of pancreatitis. TECHNIQUE: Single upright image of the abdomen is obtained. COMPARISON: 07/03/2018. FINDINGS: No differential air-fluid levels are seen within any dilated loops of bowel. Few air-fluid levels are seen within nondilated bowel. No dilated large or small bowel is seen. Cholecystectomy cli ps are present. Lung bases are well aerated. Osseous structures are grossly intact. No pneumoperitone um. Degenerative changes of the hip joints are seen as well as cam deformity bilaterally. IMPRESSION: Overall nonobstructive bowel gas pattern. Few air-fluid levels within nondilated bowel likely represe nt mild ileus.
[2018-08-25] MEDS ORDERED: fentaNYL (PF) 50 MCG/ML 2 ML AMP IV STA (08:51)
[2018-08-25] MEDS ORDERED: KETAMINE 10 MG/ML 20 ML VIAL IV ONE ×2 (09:55→10:02)
[2018-08-25] MEDS ORDERED: NALOXONE 0.4 MG/ML 1 ML VIAL IV PRN (10:12)
[2018-08-25] MEDS ORDERED: SUMAtriptan SUCCINATE 50 MG TAB PO PRN (10:14)
[2018-08-25] MEDS ORDERED: MORPHINE SULFATE IR 15 MG TABLET PO PRN (10:14)
[2018-08-25] MEDS: SODIUM CHLORIDE 0.9% 1,000 ML IV SCH ×2 (10:31→17:02)
[2018-08-25 10:51] VITALS: BMI 19.1
[2018-08-25] MEDS: HYDROmorphone 1 MG/ML 1 ML SYRINGE IVP PRN ×5 (10:57→22:44)
[2018-08-25] MEDS: SCOPOLAMINE 1.5MG/72HR PATCH TRANSDERM SCH (11:30)
[2018-08-25] MEDS ORDERED: [UNRECOGNIZED DRUG - OTHER] PO SCH (12:30)
[2018-08-25] MEDS ORDERED: LIPASE PO SCH (12:30)
[2018-08-25] MEDS ORDERED: AMYLASE PO SCH (12:30)
[2018-08-25] MEDS ORDERED: PROTEASE PO SCH (12:30)
[2018-08-25] MEDS: LIPASE 5,000/PROTEASE 17,000/AMYLASE 24,000 PO SCH ×2 (13:37→17:02)
[2018-08-25] MEDS ORDERED: MORPHINE SULFATE ER 30 MG TABLET PO SCH (16:00)
[2018-08-25] MEDS: ONDANSETRON 4 MG/2 ML VIAL IVP PRN ×2 (16:58→23:37)
[2018-08-25] MEDS: MONTELUKAST 10 MG TAB PO SCH (20:09)
--- NOTE | 2018-08-25 22:52 | HP ---
HISTORY AND PHYSICAL DATE OF ADMISSION: August 25, 2018. PRESENT COMPLAINT: Nausea and vomiting. HISTORY OF PRESENTING COMPLAINT: This is a 43-year-old patient of Dr. Dobbins and Dr. Nagy. Chronic stable medical conditions include osteoarthritis, rheumatoid arthritis, chronic diverticulosis, peripheral neuropathy, esophagitis. The patient did follow up at [facility] where she was told she has chronic pancreatitis, nothing further can be done for the same. The patient also had celiac plexus block. Per pain specialist, she says it has not helped her much. The patient presents with a 1-day history of increasing nausea, vomiting, abdominal pain. No fever. No chills. Multiple bowel movements. Patient not able to keep anything down. Feeling tired. REVIEW OF SYSTEMS: CONSTITUTIONAL: Tired. HEENT: None. RESPIRATORY none. GASTROINTESTINAL: As above. GENITOURINARY: None. MUSCULOSKELETAL: Pain in some joints. DERMATOLOGICAL, HEMATOLOGIC, LYMPHATIC: None. PSYCHIATRY: Anxiety. NEUROLOGICAL: Numbness and tingling in hands and feet. PAST MEDICAL HISTORY: Chronic nonspecific colitis, rheumatoid arthritis, chronic pancreatitis, protein calorie malnutrition, chronic pain syndrome, esophagitis, left breast mass. PAST SURGICAL HISTORY: Cholecystectomy. SOCIAL HISTORY: No smoking, no alcohol. Occasionally does marijuana. Lives alone. FAMILY HISTORY: Hypertension. MEDICATIONS: Home medications: 1. Imitrex 100 mg p.o. daily p.r.n. 2. Zofran 8 mg q.8h p.r.n. 3. Omeprazole 20 mg b.i.d. 4. Morphine sulfate immediate release 50 mg b.i.d. p.r.n. 5. MS Contin 30 mg p.o. q.8. 6. Singulair 10 mg q.h.s. 7. Loratadine 10 mg p.o. daily. 8. Creon 58512 units p.o. a.c. t.i.d. 9. Humira 40 mg subcu every 14 days. ALLERGIES: REGLAN. PHYSICAL EXAMINATION: Vital signs on presentation, temperature 98, pulse 75, respiratory 22, blood pressure 113/78, pulse 100 percent on room air. GENERAL APPEARANCE: Sitting up, thin build, anxious. EYES: Pupil equal. Conjunctivae pale. HEENT: External appearance of nose and ears normal. Oral cavity normal. NECK: JVD not raised. Mass not palpable. RESPIRATORY: Effort normal. LUNGS are clear. CARDIOVASCULAR: 1st and 2nd sounds normal. No edema. ABDOMEN: Soft. Some tenderness. No guarding or rigidity. Liver and spleen not palpable. LYMPHATICS: No lymph nodes palpable in the neck and axilla. PSYCHIATRY: Alert and oriented times three. Mood and affect normal. NEUROLOGICAL: Pupils equal. Cranial nerves grossly intact. Power and sensation grossly intact. MUSCULOSKELETAL: Some wasting of the muscles. INVESTIGATIONS: White count 11.4, potassium 4.1, BUN and creatinine is normal. Lipase is 116. ASSESSMENT: 1. Acute on chronic pancreatitis with clinical flare up. 2. Chronic esophagitis. 3. Nonspecific colitis, chronic. 4. Mild protein calorie malnutrition from decreased oral intake. 5. Chronic rheumatoid arthritis. PLAN: The patient is started on IV Dilaudid. Oral pain medications were held. Given a scopolamine patch. Also given IV fluids. Options are rather limited. Will get GI to see her. Copy to Dr. Dobbins. MMODL / SAYRAN: [id number] /
[2018-08-26] MEDS: HYDROmorphone 1 MG/ML 1 ML SYRINGE IVP PRN ×8 (01:45→23:15)
[2018-08-26] MEDS: SODIUM CHLORIDE 0.9% 1,000 ML IV SCH ×3 (03:21→20:13)
[2018-08-26] MEDS: ONDANSETRON 4 MG/2 ML VIAL IVP PRN ×3 (06:38→23:16)
[2018-08-26] MEDS: LORATADINE 10 MG TAB PO SCH (07:59)
[2018-08-26] MEDS: PANTOPRAZOLE 40 MG TABLET PO SCH ×2 (07:59→13:58)
[2018-08-26] MEDS: LIPASE 5,000/PROTEASE 17,000/AMYLASE 24,000 PO SCH (07:59)
[2018-08-26] MEDS: AMYLASE PO SCH ×2 (12:49→17:12)
[2018-08-26] MEDS: LIPASE PO SCH ×2 (12:49→17:12)
[2018-08-26] MEDS: PROTEASE PO SCH ×2 (12:49→17:12)
[2018-08-26] MEDS: [UNRECOGNIZED DRUG - OTHER] PO SCH ×2 (12:49→17:12)
--- NOTE | 2018-08-26 17:32 | PN ---
PROGRESS NOTE DATE OF SERVICE: 08/26/2018 PRESENTING COMPLAINT: Nausea, vomiting. INTERVAL HISTORY: The patient with chronic problems, admitted with nausea, vomiting. Diarrhea is improved. Barely tolerating any liquids. Getting IV fluids. REVIEW OF SYSTEMS: Done for constitutional, cardiovascular, GI, pulmonary; relevant findings as above. Diarrhea is improved. Less abdominal pain. PHYSICAL EXAMINATION: On examination, temperature 98.9 pulse 53, respirations 16, blood pressure 110/66, pulse ox 98% on room air. GENERAL APPEARANCE: Sitting up, a bit tired. EYES: Pupils equal. Conjunctiva normal. NECK: JVD not raised. Mass not palpable. RESPIRATORY: Effort normal. Lungs are clear. CARDIOVASCULAR: First and second sounds normal. No edema. ABDOMEN: Soft. Some tenderness. No guarding or rigidity. Liver and spleen not palpable. PSYCHIATRY: Alert and oriented x3. Mood affect slightly anxious appearing. INVESTIGATIONS: No blood work from today. MEDICATIONS: Current medications are reviewed that include IV Dilaudid. ASSESSMENT: 1. Acute on chronic pancreatitis with clinical flare up causing nausea, vomiting. 2. Chronic esophagitis. 3. Nonspecific colitis, chronic. 4. Mild protein calorie malnutrition from decreased oral intake. 5. Chronic rheumatoid arthritis. 6. Acute diarrhea, self-limiting, getting much better. PLAN: Continue current medication and treatment plan. Patient encouraged to increase oral intake. GI was consulted. MMODL / IJN: [id number] /
[2018-08-26] MEDS: MONTELUKAST 10 MG TAB PO SCH (20:11)
[2018-08-27] MEDS: HYDROmorphone 1 MG/ML 1 ML SYRINGE IVP PRN ×7 (03:06→21:04)
[2018-08-27] MEDS: SODIUM CHLORIDE 0.9% 1,000 ML IV SCH ×3 (04:20→20:56)
[2018-08-27] MEDS: PANTOPRAZOLE 40 MG TABLET PO SCH (08:02)
[2018-08-27] MEDS: LORATADINE 10 MG TAB PO SCH (08:02)
[2018-08-27 08:47] LABS: Anion Gap 6 mmol/L; Blood Urea Nitrogen 12 mg/dL (7-17); Calcium 8.6 mg/dL (8.4-10.2); Carbon Dioxide 18 mmol/L (22-30); Chloride 111 mmol/L (98-107); Glucose 77 mg/dL (74-99); Potassium 3.9 mmol/L (3.5-5.1); Sodium 135 mmol/L (137-145)
[2018-08-27 08:57] LABS: Basophils % (A) 0 %; Eosinophils # (A) 0.1 k/uL (0-0.7); Eosinophils % (A) 1 %; Lymphocytes % (A) 32 %; MCH 30.3 pg (25.0-35.0); MCHC 31.9 g/dL (31.0-37.0); MCV 95.1 fL (80.0-100.0); Mean Platelet Volume 6.3; Monocytes # (A) 0.5 k/uL (0-1.0); Monocytes % (A) 8 %; Neutrophils # (A) 3.6 k/uL (1.3-7.7); Neutrophils % (A) 57 %; Platelet Count 240 k/uL (150-450); RBC 3.99 m/uL (3.80-5.40); RDW 13.5 % (11.5-15.5); WBC 6.2 k/uL (3.8-10.6)
[2018-08-27 08:59] LABS: HGB 12.1 gm/dL (11.4-16.0)
[2018-08-27] MEDS: LIPASE PO SCH (09:29)
[2018-08-27] MEDS: [UNRECOGNIZED DRUG - OTHER] PO SCH (09:29)
[2018-08-27] MEDS: AMYLASE PO SCH (09:29)
[2018-08-27] MEDS: PROTEASE PO SCH (09:29)
[2018-08-27] MEDS: ONDANSETRON 4 MG/2 ML VIAL IVP PRN ×2 (12:24→21:03)
[2018-08-27] MEDS: LIPASE 5,000/PROTEASE 17,000/AMYLASE 24,000 PO SCH ×2 (12:37→17:12)
[2018-08-27] MEDS: ENOXAPARIN 40 MG/0.4 ML SYRINGE SQ SCH (17:17)
--- NOTE | 2018-08-27 17:53 | PN ---
PROGRESS NOTE DATE OF SERVICE: August 27, 2018. PRESENT COMPLAINT: Nausea and vomiting. INTERVAL HISTORY: This patient with chronic pancreatitis presented with nausea, vomiting and diarrhea. The diarrhea is completely resolved, nausea feeling much improved. Did tolerate some clear liquids. Up and about a bit. Pain appears to be getting better. REVIEW OF SYSTEMS: Done for constitutional, cardiovascular, GI, pulmonary and relevant findings as above. CURRENT MEDICATIONS: Reviewed that include IV Dilaudid. PHYSICAL EXAMINATION: VITAL SIGNS: Temperature 98.6, pulse 71, respirations 12, blood pressure 105/61, pulse ox 99 percent on room air. GENERAL APPEARANCE: Sitting up, awake. EYES: Pupils are equal. Conjunctivae normal. NECK: JVD not raised. Mass not palpable. RESPIRATORY: Effort normal. LUNGS: Fair air entry. CARDIOVASCULAR: 1st and 2nd sounds normal. No edema. ABDOMEN: Soft. No tenderness. No guarding or rigidity. PSYCHIATRY: Alert and oriented x3. Mood and affect normal. INVESTIGATIONS: White count 6.2, potassium 3.9, bicarb 18. ASSESSMENT: 1. Acute on chronic pancreatitis with clinical flare-up causing nausea, vomiting, now doing much better. 2. Chronic esophagitis. 3. Nonspecific colitis, chronic. 4. Mild protein calorie malnutrition from decreased oral intake. 5. Chronic rheumatoid arthritis. 6. Acute diarrhea, self-limiting. PLAN: Patient will be switched over to oral home pain medications in the morning. The patient should be able to be discharged tomorrow. Care was discussed with the patient. MMODL / IJN: [id number] /
[2018-08-27] MEDS: MONTELUKAST 10 MG TAB PO SCH (21:03)
[2018-08-28] MEDS: HYDROmorphone 1 MG/ML 1 ML SYRINGE IVP PRN ×2 (00:02→03:06)
[2018-08-28] MEDS: SODIUM CHLORIDE 0.9% 1,000 ML IV SCH (05:59)
[2018-08-28] MEDS: LIPASE 5,000/PROTEASE 17,000/AMYLASE 24,000 PO SCH ×2 (06:28→11:37)
[2018-08-28] MEDS: LORATADINE 10 MG TAB PO SCH (07:12)
[2018-08-28] MEDS: PANTOPRAZOLE 40 MG TABLET PO SCH (07:12)
[2018-08-28] MEDS: MORPHINE SULFATE ER 30 MG TABLET PO SCH ×2 (07:12→16:22)
[2018-08-28] MEDS: ENOXAPARIN 40 MG/0.4 ML SYRINGE SQ SCH (07:13)
[2018-08-28 08:09] VITALS: RESP 16
[2018-08-28 08:28] LABS: Anion Gap 5 mmol/L; Blood Urea Nitrogen 8 mg/dL (7-17); Calcium 8.8 mg/dL (8.4-10.2); Carbon Dioxide 18 mmol/L (22-30); Chloride 116 mmol/L (98-107); Glucose 80 mg/dL (74-99); Sodium 139 mmol/L (137-145)
[2018-08-28] MEDS ORDERED: MORPHINE SULFATE IR 15 MG TABLET PO PRN (09:00)
[2018-08-28] MEDS: SCOPOLAMINE 1.5MG/72HR PATCH TRANSDERM SCH (11:38)
[2018-08-28] MEDS: ONDANSETRON 4 MG/2 ML VIAL IVP PRN (14:13)
[2018-08-28 14:35] VITALS: BP 95/60; PULSE 56; TEMP 99.5
[2018-09-08] MEDS ORDERED: ADALIMUMAB 40 MG SQ SCH (09:00)
== END 2018-08-28 17:58 | disposition home or self-care (01) | DRG 439 ==
LOC: EC 07:27 → 1SOBS 10:16 → OBSVTOIN 08-26 08:00 → 4SSUR 08-26 10:53
PROVIDERS: ADMIT Hospitalist; ATTEND Hospitalist
DX: K85.90 Acute pancreatitis without necrosis or infection, unspecified (principal); E44.1 Mild protein-calorie malnutrition; K50.90 Crohn's disease, unspecified, without complications; K86.1 Other chronic pancreatitis; G62.9 Polyneuropathy, unspecified; G89.4 Chronic pain syndrome; K21.0 Gastro-esophageal reflux disease with esophagitis; K57.90 Diverticulosis of intestine, part unspecified, without perforation or abscess without bleeding; M06.9 Rheumatoid arthritis, unspecified; M19.90 Unspecified osteoarthritis, unspecified site; H26.9 Unspecified cataract; Z79.899 Other long term (current) drug therapy; Z87.440 Personal history of urinary (tract) infections; Z88.8 Allergy status to other drugs, medicaments and biological substances; Z87.11 Personal history of peptic ulcer disease; Z90.49 Acquired absence of other specified parts of digestive tract; Z82.49 Family history of ischemic heart disease and other diseases of the circulatory system
CPT/HCPCS: 36415; 74018; 80048; 80053; 81001; 82150; 83690; 83735; 85025; 96361; 96374; 96375; 96376; 99285

== ENCOUNTER 2018-08-30 14:37 | Observation (INO) | payer OTHER ==
[2018-08-30] MEDS ORDERED: SODIUM CHLORIDE 0.9% 1,000 ML IV STA (15:23)
[2018-08-30] MEDS ORDERED: ONDANSETRON 4 MG/2 ML VIAL IVP STA (15:30)
[2018-08-30] MEDS ORDERED: HYDROmorphone 0.5 MG/0.5 ML SYRINGE IVP STA ×2 (15:30→17:05)
[2018-08-30] MEDS ORDERED: ACETAMINOPHEN TAB 500 MG TAB PO STA (15:32)
--- NOTE | 2018-08-30 15:32 | ED ---
General Adult HPI - General Chief complaint: Abdominal Pain Stated complaint: abdominal pain/vomiting Time Seen by Provider: 08/30/18 15:13 Source: patient, RN notes reviewed Mode of arrival: wheelchair Limitations: no limitations - History of Present Illness Initial comments: 43-year-old female with a past medical history of chronic pancreatitis, Crohn's disease, chronic esophagitis presents to the emergency department for a chief complaint of abdominal pain. Patient states this has been ongoing for the past week. She states she was admitted and released 2 days ago for this but pain is worsening. She states she cannot eat or drink anything at home.she states she is vomiting multiple times per day. Patient states she has been seen at the [facility] and was diagnosed with chronic pancreatitis secondary to a medication she took for Crohn's disease. Patient has no other complaints at this time including shortness of breath, chest pain, headache, or visual changes. - Related Data Home Medications Medication Instructions Recorded Confirmed SUMAtriptan SUCCINATE [Imitrex] 100 mg PO DAILY PRN 06/07/16 08/30/18 Omeprazole 20 mg PO BID 08/05/16 08/30/18 Ondansetron [Zofran ODT] 8 mg PO Q8H PRN 08/18/16 08/30/18 Loratadine 10 mg PO DAILY 09/14/16 08/30/18 Montelukast Sodium [Singulair] 10 mg PO HS 09/14/16 08/30/18 Morphine Sulfate ER [Ms Contin] 30 mg PO Q8H 09/14/16 08/30/18 Morphine Sulfate Ir [MSIR] 15 mg PO BID PRN 09/14/16 08/30/18 Adalimumab [Humira Pen] 40 mg SQ [id number] 12/25/16 08/30/18 Lipase/Protease/Amylase [Thor Ambrocio 36,000 units PO AC-TID 08/25/18 08/30/18 36,000 Units Capsule] Allergies Allergy/AdvReac Type Severity Reaction Status Date / Time metoclopramide [From Reglan] AdvReac Intermediate Twitching Verified 08/30/18 16:21 Review of Systems ROS Statement: Those systems with pertinent positive or pertinent negative responses have been documented in the HPI. ROS Other: All systems not noted in ROS Statement are negative. Past Medical History Past Medical History: Eye Disorder, GERD/Reflux, GI Bleed, Neurologic Disorder, Osteoarthritis (OA), Rheumatoid Arthritis (RA) Additional Past Medical History / Comment(s): Chronic pancreatitis, Crohn's disease, chronic esophagitis, blood in stool, diverticulosis, hx ulcers, frequent UTI'S, hx blood clots in left arm pt states d/t picc lines, hx anemia with numerous transfusions, hx kidney failure from dehydration 12 yrs ago, ne uropathy, cataracts. History of Any Multi-Drug Resistant Organisms: None Reported Past Surgical History: Cholecystectomy Additional Past Surgical History / Comment(s): colonsocopies, EGDs Past Anesthesia/Blood Transfusion Reactions: No Reported Reaction Additional Past Anesthesia/Blood Transfusion Reaction / Comment(s): Has had about 13 blood transfusions-no reactions. Past Psychological History: No Psychological Hx Reported Smoking Status: Never smoker Past Alcohol Use History: None Reported Past Drug Use History: None Reported - Past Family History Father Family Medical History: Myocardial Infarction ([place]) Additional Family Medical History / Comment(s): Father had drug abuse problem. He of a [place] at the age of 61 yrs. Mother Family Medical History: Hypertension Additional Family Medical History / Comment(s): Mother is living. General Exam Limitations: no limitations General appearance: alert, in no apparent distress Head exam: Present: atraumatic, normocephalic, normal inspection Eye exam: Present: normal appearance, PERRL, EOMI. Absent: scleral icterus, conjunctival injection, periorbital swelling ENT exam: Present: normal exam, mucous membranes moist Neck exam: Present: normal inspection, full ROM. Absent: tenderness, meningismus, lymphadenopathy Respiratory exam: Present: normal lung sounds bilaterally. Absent: respiratory distress, wheezes, rales, rhonchi, stridor Cardiovascular Exam: Present: regular rate, normal rhythm, normal heart sounds. Absent: systolic murmur, diastolic murmur, rubs, gallop, clicks GI/Abdominal exam: Present: soft, tenderness (tenderness with voluntary guarding throughout upper abdomen), normal bowel sounds. Absent: distended, guarding, rebound, rigid Neurological exam: Present: alert, oriented X3, CN II-XII intact Psychiatric exam: Present: normal affect, normal mood Course Vital Signs 08/30/18 08/30/18 14:55 17:22 Temperature 99.8 F H 98.1 F Pulse Rate 59 L 52 L Respiratory 16 18 Rate Blood Pressure 144/73 148/95 O2 Sat by Pulse 99 100 Oximetry Medical Decision Making - Medical Decision Making 43-year-old female with a past medical history of chronic pancreatitis, Crohn's disease, presents to the emergency department for a chief complaint of abdominal pain. Patient was recently released from this hospital for chronic pancreatitis 2 days ago. States pain was better at that time but hasn't again worsened. States she has not been tolerating solids or liquids for the past 2 days. States she has been vomiting multiple times. CBC CMP unremarkable. Amylase and lipase are within the limits. Urinalysis shows greater than 182 white blood cells with many white blood cell clumps. There are greater than 182 red cells however patient is currently demonstrating. Given that patient cannot tolerate oral intake and is vomiting several times here in the emergency department, failed by mouth trial she will be admitted for IV hydration and IV antibiotics. Dr teixeira spoke with Dr. erwin about this and accepts this admission. - Lab Data Result diagrams: 08/30/18 16:00 08/30/18 16:00 Lab Results 08/30/18 08/30/18 08/30/18 Range/Units 16:00 16:00 16:00 WBC 8.6 (3.8-10.6) k/uL RBC 5.04 (3.80-5.40) m/uL Hgb 15.7 D (11.4-16.0) gm/dL Hct 46.9 H (34.0-46.0) % MCV 93.2 (80.0-100.0) fL MCH 31.1 (25.0-35.0) pg MCHC 33.4 (31.0-37.0) g/dL RDW 13.7 (11.5-15.5) % Plt Count 296 (150-450) k/uL Neutrophils % 71 % Lymphocytes % 21 % Monocytes % 6 % Eosinophils % 1 % Basophils % 0 % Neutrophils # 6.1 (1.3-7.7) k/uL Lymphocytes # 1.8 (1.0-4.8) k/uL Monocytes # 0.5 (0-1.0) k/uL Eosinophils # 0.0 (0-0.7) k/uL Basophils # 0.0 (0-0.2) k/uL Sodium 144 (137-145) mmol/L Potassium 3.7 (3.5-5.1) mmol/L Chloride 109 H (98-107) mmol/L Carbon Dioxide 22 (22-30) mmol/L Anion Gap 13 mmol/L BUN 5 L (7-17) mg/dL Creatinine 0.69 (0.52-1.04) mg/dL Est GFR (CKD-EPI)AfAm >90 (>60 ml/min/1.73 sqM) Est GFR (CKD-EPI)NonAf >90 (>60 ml/min/1.73 sqM) Glucose 99 (74-99) mg/dL Plasma Lactic Acid [place] (0.7-2.0) mmol/L Calcium 10.4 H (8.4-10.2) mg/dL Total Bilirubin 1.5 H (0.2-1.3) mg/dL AST 18 (14-36) U/L ALT 23 (9-52) U/L Alkaline Phosphatase 73 (38-126) U/L Total Protein 7.7 (6.3-8.2) g/dL Albumin 4.7 (3.5-5.0) g/dL Amylase 64 (30-110) U/L Lipase 142 (23-300) U/L Urine Color Light Red Urine Appearance Clear (Clear) Urine pH 5.5 (5.0-8.0) Ur Specific [place] 1.007 (1.001-1.035) Urine Protein Trace H (Negative) Urine Glucose (UA) Negative (Negative) Urine Ketones Negative (Negative) Urine Blood Moderate H (Negative) Urine Nitrite Negative (Negative) Urine Bilirubin Negative (Negative) Urine Urobilinogen <2.0 (<2.0) mg/dL Ur Leukocyte Esterase Moderate H (Negative) Urine RBC >182 H (0-5) /hpf Urine WBC >182 H (0-5) /hpf Urine WBC Clumps Many H (None) /hpf Ur Squamous Epith Cells 22 H (0-4) /hpf Amorphous Sediment Occasional H (None) /hpf Urine Mucus Many H (None) /hpf Influenza Type A RNA (Not Detectd) Influenza Type B (PCR) (Not Detectd) 08/30/18 08/30/18 Range/Units 16:00 16:00 WBC (3.8-10.6) k/uL RBC (3.80-5.40) m/uL Hgb (11.4-16.0) gm/dL Hct (34.0-46.0) % MCV (80.0-100.0) fL MCH (25.0-35.0) pg MCHC (31.0-37.0) g/dL RDW (11.5-15.5) % Plt Count (150-450) k/uL Neutrophils % % Lymphocytes % % Monocytes % % Eosinophils % % Basophils % % Neutrophils # (1.3-7.7) k/uL Lymphocytes # (1.0-4.8) k/uL Monocytes # (0-1.0) k/uL Eosinophils # (0-0.7) k/uL Basophils # (0-0.2) k/uL Sodium (137-145) mmol/L Potassium (3.5-5.1) mmol/L Chloride (98-107) mmol/L Carbon Dioxide (22-30) mmol/L Anion Gap mmol/L BUN (7-17) mg/dL Creatinine (0.52-1.04) mg/dL Est GFR (CKD-EPI)AfAm (>60 ml/min/1.73 sqM) Est GFR (CKD-EPI)NonAf (>60 ml/min/1.73 sqM) Glucose (74-99) mg/dL Plasma Lactic Acid [place] 1.9 (0.7-2.0) mmol/L Calcium (8.4-10.2) mg/dL Total Bilirubin (0.2-1.3) mg/dL AST (14-36) U/L ALT (9-52) U/L Alkaline Phosphatase (38-126) U/L Total Protein (6.3-8.2) g/dL Albumin (3.5-5.0) g/dL Amylase (30-110) U/L Lipase (23-300) U/L Urine Color Urine Appearance (Clear) Urine pH (5.0-8.0) Ur Specific [place] (1.001-1.035) Urine Protein (Negative) Urine Glucose (UA) (Negative) Urine Ketones (Negative) Urine Blood (Negative) Urine Nitrite (Negative) Urine Bilirubin (Negative) Urine Urobilinogen (<2.0) mg/dL Ur Leukocyte Esterase (Negative) Urine RBC (0-5) /hpf Urine WBC (0-5) /hpf Urine WBC Clumps (None) /hpf Ur Squamous Epith Cells (0-4) /hpf Amorphous Sediment (None) /hpf Urine Mucus (None) /hpf Influenza Type A RNA Not Detected (Not Detectd) Influenza Type B (PCR) Not Detected (Not Detectd) Disposition Clinical Impression: Urinary tract infection, Intractable abdominal pain, Intractable nausea and vomiting, History of pancreatitis Disposition: ADMITTED IP TO THIS HOSP Condition: Fair Is patient prescribed a controlled substance at d/c from ED?: No Referrals: Derek Dobbins MD [Primary Care Provider] - 1-2 days Time of Disposition: 17:48
[2018-08-30 16:36] LABS: Basophils % (A) 0 %; Eosinophils % (A) 1 %; HCT 46.9 % (34.0-46.0); Lymphocytes # (A) 1.8 k/uL (1.0-4.8); Lymphocytes % (A) 21 %; MCH 31.1 pg (25.0-35.0); MCHC 33.4 g/dL (31.0-37.0); MCV 93.2 fL (80.0-100.0); Mean Platelet Volume 6.5; Monocytes # (A) 0.5 k/uL (0-1.0); Monocytes % (A) 6 %; Neutrophils # (A) 6.1 k/uL (1.3-7.7); Neutrophils % (A) 71 %; Platelet Count 296 k/uL (150-450); RBC 5.04 m/uL (3.80-5.40); RDW 13.7 % (11.5-15.5); WBC 8.6 k/uL (3.8-10.6)
[2018-08-30 16:37] LABS: HGB 15.7 gm/dL (11.4-16.0)
[2018-08-30 16:40] LABS: ALT 23 U/L (9-52); AST 18 U/L (14-36); Albumin 4.7 g/dL (3.5-5.0); Alkaline Phosphatase 73 U/L (38-126); Amylase 64 U/L (30-110); Anion Gap 13 mmol/L; Blood Urea Nitrogen 5 mg/dL (7-17); Calcium 10.4 mg/dL (8.4-10.2); Carbon Dioxide 22 mmol/L (22-30); Chloride 109 mmol/L (98-107); Glucose 99 mg/dL (74-99); Lipase 142 U/L (23-300); Potassium 3.7 mmol/L (3.5-5.1); Sodium 144 mmol/L (137-145); Total Bilirubin 1.5 mg/dL (0.2-1.3); Total Protein 7.7 g/dL (6.3-8.2)
[2018-08-30 16:45] LABS: Amorphous Sediment,Urine Occasional /hpf; Appearance,Urine Clear (Clear); Bilirubin,Urine Negative (Negative); Blood,Urine Moderate (Negative); Color,Urine Light Red; Glucose,Urine (UA) Negative (Negative); Ketones,Urine Negative (Negative); Leukocyte Esterase,Urine Moderate (Negative); Mucus,Urine Many /hpf; Nitrite,Urine Negative (Negative); PH, Urine 5.5 (5.0-8.0); Protein,Urine Trace (Negative); RBC,Urine >182 /hpf (0-5); Specific Gravity,Urine 1.007 (1.001-1.035); Squamous Epithelial Cell,Urine 22 /hpf (0-4); Urobilinogen,Urine <2.0 mg/dL (<2.0); WBC,Urine >182 /hpf (0-5)
[2018-08-30] MEDS ORDERED: cefTRIAXone IN SWFI 1,000 MG/10 ML SYRINGE IVP STA ×2 (16:48→17:25)
[2018-08-30] MEDS ORDERED: PROCHLORPERAZINE 5 MG TAB PO STA (17:07)
[2018-08-30] MEDS ORDERED: HYDROmorphone 0.5 MG/0.5 ML SYRINGE IVP PRN (17:44)
[2018-08-30] MEDS ORDERED: NALOXONE 0.4 MG/ML 1 ML VIAL IV PRN (17:44)
[2018-08-30] MEDS ORDERED: PROCHLORPERAZINE 5 MG TAB PO PRN (17:44)
[2018-08-30] MEDS ORDERED: ONDANSETRON 4 MG/2 ML VIAL IVP PRN (17:44)
[2018-08-30] MEDS ORDERED: KETOROLAC 30 MG/ML 1 ML VIAL IVP PRN (17:44)
[2018-08-30] MEDS: SODIUM CHLORIDE 0.9% 1,000 ML IV SCH (20:04)
[2018-08-30] MEDS ORDERED: MORPHINE SULFATE IR 15 MG TABLET PO PRN (21:19)
[2018-08-30] MEDS ORDERED: SUMAtriptan SUCCINATE 50 MG TAB PO PRN (22:00)
[2018-08-30] MEDS: HYDROmorphone 1 MG/ML 1 ML SYRINGE IVP PRN (22:23)
[2018-08-30] MEDS: ONDANSETRON ODT 4 MG TAB PO PRN (23:34)
[2018-08-30] MEDS: MORPHINE SULFATE ER 30 MG TABLET PO SCH (23:35)
[2018-08-31] MEDS: HYDROmorphone 1 MG/ML 1 ML SYRINGE IVP PRN ×8 (01:01→21:29)
[2018-08-31] MEDS: SODIUM CHLORIDE 0.9% 1,000 ML IV SCH ×3 (01:07→16:40)
[2018-08-31] MEDS: LIPASE PO SCH ×3 (07:30→16:40)
[2018-08-31] MEDS: AMYLASE PO SCH ×3 (07:30→16:40)
[2018-08-31] MEDS: MORPHINE SULFATE ER 30 MG TABLET PO SCH ×2 (07:30→16:40)
[2018-08-31] MEDS: LORATADINE 10 MG TAB PO SCH (07:30)
[2018-08-31] MEDS: PANTOPRAZOLE 40 MG TABLET PO SCH (07:30)
[2018-08-31] MEDS: PROTEASE PO SCH ×3 (07:30→16:40)
[2018-08-31] MEDS: ONDANSETRON ODT 4 MG TAB PO PRN ×2 (07:33→20:15)
[2018-08-31] MEDS ORDERED: PROCHLORPERAZINE SUPPOSITORY 25 MG SUPP RECTAL PRN (09:52)
--- NOTE | 2018-08-31 09:52 | P.CONS ---
History of Present Illness - Reason for Consult Consult date: 08/31/18 abdominal pain nausea vomiting Requesting physician: Chandan E Sheet - Chief Complaint abdominal pain - History of Present Illness 43-year-old female with a history of chronic pain maintained on [facility] Contin/pain specialist, chronic nausea vomiting, gastroparesis, chronic pancreatitis, Crohn's disease admitted with intractable nausea vomiting abdominal pain. Patient was recently evaluated at a tertiary center regarding abdominal pain chronic pancreatitis. She is scheduled for endoscopic ultrasound on September 27 at [facility]. Denies fever chills hematemesis hematochezia melena. White count 8.6. Hemoglobin 15.7. Total bilirubin 1.5. AST 18. ALT 23. AP 73. Lipase 142. Amylase 64. Influenza not detected. EGD June 2018 no evidence of peptic ulcer disease or complicated reflux disease. Patient states she underwent gastric acting study [facility] a month ago that was reported as normal. Review of Systems Constitutional: Denies fever, chills, sweats, weight gain, or loss. HEENT: Negative for migraines, blurred vision or loss, earaches, drainage, tinnitus, oral mucosal lesions, dysphagia, or odynophagia. CARDIAC: Negative for chest pain, arrhythmias, or palpitation. RESPIRATORY: Negative for shortness of breath, hemoptysis, cough, or sputum production. GI: See HPI for pertinent findings. : Negative for hematuria, urgency, frequency, polyuria, or dysuria. GYNc: Denies possibility of . Negative vaginal discharge. MUSCULOSKELETAL: Negative for muscle aches, swelling, arthritis, and arthralgias. NEUROLOGIC: Negative for stroke or TIA. ENDOCRINE: Negative for thyroid problems. SKIN: Negative for rash or itching. PSYCHIATRIC: Negative history for depression and anxiety Past Medical History Past Medical History: Eye Disorder, GERD/Reflux, GI Bleed, Neurologic Disorder, Osteoarthritis (OA), Rheumatoid Arthritis (RA) Additional Past Medical History / Comment(s): Chronic pancreatitis, Crohn's disease, chronic esophagitis, blood in stool, diverticulosis, hx ulcers, frequent UTI'S, hx blood clots in left arm pt states d/t picc lines, hx anemia with numerous transfusions, hx kidney failure from dehydration 12 yrs ago, neuropathy, cataracts. History of Any Multi-Drug Resistant Organisms: None Reported Past Surgical History: Cholecystectomy Additional Past Surgical History / Comment(s): colonsocopies, EGDs Past Anesthesia/Blood Transfusion Reactions: No Reported Reaction Additional Past Anesthesia/Blood Transfusion Reaction / Comm: Has had about 13 blood transfusions-no reactions. Past Psychological History: No Psychological Hx Reported Additional Psychological History / Comment(s): pt lives with boy friend xuan. Smoking Status: Never smoker Past Alcohol Use History: None Reported Additional Past Alcohol Use History / Comment(s): past occ alcohol -quit 2008 Past Drug Use History: None Reported Additional Drug Use History / Comment(s): Daily use-less than 1 joint. - Past Family History Father Family Medical History: Myocardial Infarction ([place]) Additional Family Medical History / Comment(s): Father had drug abuse problem. He of a [place] at the age of 61 yrs. Mother Family Medical History: Hypertension Additional Family Medical History / Comment(s): Mother is living. Medications and Allergies Home Medications Medication Instructions Recorded Confirmed Type SUMAtriptan SUCCINATE [Imitrex] 100 mg PO DAILY PRN 06/07/16 08/30/18 History Omeprazole 20 mg PO BID 08/05/16 08/30/18 History Ondansetron [Zofran ODT] 8 mg PO Q8H PRN 08/18/16 08/30/18 History Loratadine 10 mg PO DAILY 09/14/16 08/30/18 History Montelukast Sodium [Singulair] 10 mg PO HS 09/14/16 08/30/18 History Morphine Sulfate ER [Ms Contin] 30 mg PO Q8H 09/14/16 08/30/18 History Morphine Sulfate Ir [MSIR] 15 mg PO BID PRN 09/14/16 08/30/18 History Adalimumab [Humira Pen] 40 mg SQ [id number] 12/25/16 08/30/18 History Lipase/Protease/Amylase [Thor Ambrocio 36,000 units PO AC-TID 08/25/18 08/30/18 History 36,000 Units Capsule] Allergies Allergy/AdvReac Type Severity Reaction Status Date / Time metoclopramide [From Reglan] AdvReac Intermediate Twitching Verified 08/30/18 16:21 Physical Exam Vitals: Vital Signs Temp Pulse Pulse Pulse Resp BP BP 08/31/18 05:00 98.1 F 57 L 18 97/62 08/31/18 00:55 52 L 16 08/30/18 21:06 98.3 F 46 L 16 145/86 08/30/18 19:02 98.1 F 50 L 18 138/88 08/30/18 17:22 98.1 F 52 L 18 148/95 08/30/18 14:55 99.8 F H 59 L 16 144/73 Pulse Ox 08/31/18 05:00 99 08/31/18 00:55 08/30/18 21:06 94 L 08/30/18 19:02 100 08/30/18 17:22 100 08/30/18 14:55 99 Intake and Output 08/30/18 08/31/18 08/31/18 22:59 06:59 14:59 Intake Total 360 960 240 Output Total 200 Balance 360 760 240 Intake: Intake, IV Titration 360 960 Amount Sodium Chloride 0.9% 1, 360 960 000 ml @ 120 mls/hr IV . Q8H20M [facility] Rx#:[id number] Oral 240 Output: Emesis 200 Other: Voiding Method Toilet # Voids 1 1 General appearance: The patient is alert, oriented, in no acute distress. HET: Head is normocephalic and atraumatic. Pupils are equal and reactive. Oropharynx is clear without lesions. Neck: Supple without lymphadenopathy. Trachea midline. Heart: S1 S2. Regular rate and rhythm. Lungs: No crackles or wheezes are heard. Abdomen: Soft, mild epigastric tenderness, nondistended with bowel sounds. No peritoneal signs. No palpable organomegaly or masses. Extremities: Normal skin color and turgor. No cyanosis, rash, ulceration, clubbing, or edema. Radial and pedal pulses are 2/4 bilaterally. Neurological: No focal deficits. Strength and sensation are grossly intact. Results CBC & Chem 7: 08/30/18 16:00 08/30/18 16:00 Labs: Abnormal Lab Results - Last 24 Hours (Table) 08/30/18 08/30/18 08/30/18 Range/Units 16:00 16:00 16:00 Hct 46.9 H (34.0-46.0) % Chloride 109 H (98-107) mmol/L BUN 5 L (7-17) mg/dL Calcium 10.4 H (8.4-10.2) mg/dL Total Bilirubin 1.5 H (0.2-1.3) mg/dL Urine Protein Trace H (Negative) Urine Blood Moderate H (Negative) Ur Leukocyte Esterase Moderate H (Negative) Urine RBC >182 H (0-5) /hpf Urine WBC >182 H (0-5) /hpf Urine WBC Clumps Many H (None) /hpf Ur Squamous Epith Cells 22 H (0-4) /hpf Amorphous Sediment Occasional H (None) /hpf Urine Mucus Many H (None) /hpf Assessment and Plan (1) Abdominal pain Current Visit: No Status: Acute Code(s): R10.9 - UNSPECIFIED ABDOMINAL PAIN SNOMED Code(s): 16085389 (2) Acute on chronic pancreatitis Current Visit: No Status: Acute Code(s): K85.90 - ACUTE PANCREATITIS WITHOUT NECROSIS OR INFECTION, UNSP; K86.1 - OTHER CHRONIC PANCREATITIS SNOMED Code(s): 968232814 Plan: 1. Patient is presently under the supervision of oral health therapist at [facility] scheduled for endoscopic ultrasound September 27. Continue with antibiotics light diet as tolerated. We'll provide scopolamine patch, Compazine suppositories as needed. We'll follow with you. Thank you for this kind referral and the opportunity to participate in the care of your patient. This consultation was discussed with Dr. Nagy. The impression and plan of care have been directed as dictated.
[2018-08-31] MEDS ORDERED: SCOPOLAMINE 1.5MG/72HR PATCH TRANSDERM SCH (10:00)
[2018-08-31 11:06] VITALS: BMI 18.6
--- NOTE | 2018-08-31 15:04 | P.HPIM ---
History of Present Illness H&P Date: 08/31/18 Chief Complaint: Abdominal pain Patient is a 43-year-old female with a known history of chronic pancreatitis, suspected due to medication related she took for Crohn's disease as per patient, Crohn's disease, GERD, or Sjogren's and rheumatoid arthritis and multiple other medical problems came to ER with complaints of abdominal pain mainly epigastric abdominal pain radiating to the back. Patient felt like similar to previous regular his pain. Patient says that she was recently discharged from hospital on Tuesday. Patient is currently followed with interest in [place] where she had MRCP and is scheduled for endoscopic ultrasound on September 27. Patient also had gastric emptying study done which was normal at the [facility]. Patient presents to hospital with nausea vomiting and abdominal pain. Denied any complaints of chest pain or shortness of breath. No headache or dizziness or lightheadedness. UA showed greater than 182 WBC and RBC. Not a good sample. Lipase 142 Review of Systems Constitutional: Patient denies any fever or chills . No generalized weakness or weight loss. Abdomen: Patient does have nausea and vomiting and abdominal pain.. Cardiovascular: Patient denies any chest pain or short of breath no palpitations. Respiratory: patient denied any cough is from production. No shortness of br eath Neurologic: Patient denied any numbness or tingling headache. Musculoskeletal: Patient denies any complaints of joint swelling or deformity. Skin: Negative Psychiatric: Negative Endocrine: No heat or cold intolerance. No recent weight gain. Genitourinary: No dysuria or hematuria. All other 14 point ROS negative except the above Past Medical History Past Medical History: Eye Disorder, GERD/Reflux, GI Bleed, Neurologic Disorder, Osteoarthritis (OA), Rheumatoid Arthritis (RA) Additional Past Medical History / Comment(s): Chronic pancreatitis, Crohn's disease, chronic esophagitis, blood in stool, diverticulosis, hx ulcers, frequent UTI'S, hx blood clots in left arm pt states d/t picc lines, hx anemia with numerous transfusions, hx kidney failure from dehydration 12 yrs ago, neuropathy, cataracts. History of Any Multi-Drug Resistant Organisms: None Reported Past Surgical History: Cholecystectomy Additional Past Surgical History / Comment(s): colonsocopies, EGDs Past Anesthesia/Blood Transfusion Reactions: No Reported Reaction Additional Past Anesthesia/Blood Transfusion Reaction / Comment(s): Has had about 13 blood transfusions-no reactions. Past Psychological History: No Psychological Hx Reported Additional Psychological History / Comment(s): pt lives with boy friend xuan. Smoking Status: Never smoker Past Alcohol Use History: None Reported Additional Past Alcohol Use History / Comment(s): past occ alcohol -quit 2009 Past Drug Use History: None Reported Additional Drug Use History / Comment(s): Daily use-less than 1 joint. - Past Family History Father Family Medical History: Myocardial Infarction ([place]) Additional Family Medical History / Comment(s): Father had drug abuse problem. He of a [place] at the age of 61 yrs. Mother Family Medical History: Hypertension Additional Family Medical History / Comment(s): Mother is living. Medications and Allergies Home Medications Medication Instructions Recorded Confirmed Type SUMAtriptan SUCCINATE [Imitrex] 100 mg PO DAILY PRN 06/07/16 08/30/18 History Omeprazole 20 mg PO BID 08/05/16 08/30/18 History Ondansetron [Zofran ODT] 8 mg PO Q8H PRN 08/18/16 08/30/18 History Loratadine 10 mg PO DAILY 09/14/16 08/30/18 History Montelukast Sodium [Singulair] 10 mg PO HS 09/14/16 08/30/18 History Morphine Sulfate ER [Ms Contin] 30 mg PO Q8H 09/14/16 08/30/18 History Morphine Sulfate Ir [MSIR] 15 mg PO BID PRN 09/14/16 08/30/18 History Adalimumab [Humira Pen] 40 mg SQ [id number] 12/25/16 08/30/18 History Lipase/Protease/Amylase [Thor Ambrocio 36,000 units PO AC-TID 08/25/18 08/30/18 History 36,000 Units Capsule] Allergies Allergy/AdvReac Type Severity Reaction Status Date / Time metoclopramide [From Reglan] AdvReac Intermediate Twitching Verified 08/30/18 16:21 Physical Exam Vitals: Vital Signs Temp Pulse Pulse Pulse Resp BP BP 08/31/18 05:00 98.1 F 57 L 18 97/62 08/31/18 00:55 52 L 16 08/30/18 21:06 98.3 F 46 L 16 145/86 08/30/18 19:02 98.1 F 50 L 18 138/88 08/30/18 17:22 98.1 F 52 L 18 148/95 08/30/18 14:55 99.8 F H 59 L 16 144/73 Pulse Ox 08/31/18 05:00 99 08/31/18 00:55 08/30/18 21:06 94 L 08/30/18 19:02 100 08/30/18 17:22 100 08/30/18 14:55 99 Intake and Output 08/30/18 08/31/18 08/31/18 22:59 06:59 14:59 Intake Total 360 960 240 Output Total 200 Balance 360 760 240 Intake: Intake, IV Titration 360 960 Amount Sodium Chloride 0.9% 1, 360 960 000 ml @ 120 mls/hr IV . Q8H20M [facility] Rx#:[id number] Oral 240 Output: Emesis 200 Other: Voiding Method Toilet # Voids 1 1 PHYSICAL EXAMINATION: Patient is lying in the bed comfortably, no acute distress, awake alert and oriented.. HEENT: Normocephalic. Neck is supple. Pupils reactive. Nostrils clear. Oral cavity is moist. Ears reveal no drainage. Neck reveals no JVD, carotid bruits, or thyromegaly. CHEST EXAMINATION: Trachea is central. Symmetrical expansion. Lung arzate clear to auscultation and percussion. CARDIAC: Normal S1, S2 with no gallops. No murmurs ABDOMEN: Soft. Mild epigastric tenderness. Bowel sounds normal. No organomegaly. No abdominal bruits. Extremities: reveal no edema. No clubbing or cyanosis Neurologically awake, alert, oriented x3 with well-coordinated movements. No focal deficits noted Skin: No rash or skin lesions. Psychiatric: Coperative. Nonsuicidal Musculoskeletal: No joint swelling or deformity. Normal range of motion. Results CBC & Chem 7: 08/30/18 16:00 08/30/18 16:00 Labs: Abnormal Lab Results - Last 24 Hours (Table) 08/30/18 08/30/18 08/30/18 Range/Units 16:00 16:00 16:00 Hct 46.9 H (34.0-46.0) % Chloride 109 H (98-107) mmol/L BUN 5 L (7-17) mg/dL Calcium 10.4 H (8.4-10.2) mg/dL Total Bilirubin 1.5 H (0.2-1.3) mg/dL Urine Protein Trace H (Negative) Urine Blood Moderate H (Negative) Ur Leukocyte Esterase Moderate H (Negative) Urine RBC >182 H (0-5) /hpf Urine WBC >182 H (0-5) /hpf Urine WBC Clumps Many H (None) /hpf Ur Squamous Epith Cells 22 H (0-4) /hpf Amorphous Sediment Occasional H (None) /hpf Urine Mucus Many H (None) /hpf Thrombosis Risk Factor Assmnt - DVT/VTE Prophylaxis DVT/VTE Prophylaxis: Pharmacologic Prophylaxis ordered - Choose All That Apply Any of the Below Risk Factors Present?: Yes Each Factor Represents 1 point: Age 41-60 years, Medical pt on bed rest Other Risk Factors: No Other congenital or acquired thrombophilia - If yes, enter type in comment: No Thrombosis Risk Factor Assessment Total Risk Factor Score: 2 Thrombosis Risk Factor Assessment Level: Low Risk Assessment and Plan Assessment: Acute on chronic pancreatitis. Currently being worked up at EMS to [place]. Scheduled for endoscopic ultrasound on September 27. Patient had MRCP done there Possible urinary tract infection. History of chronic sinusitis. Suspected medication induced she took for Crohn's disease as per patient GERD Crohn's disease currently on medications Osteoarthritis and rheumatoid arthritis History of diverticulosis Frequent urinary tract infections DVT prophylaxis Plan: Next and patient continued on IV hydration. Continue the home medications and antibiotics the form of ceftriaxone. Follow-up culture reports. Continue to follow closely and further recommendations based on clinical course. GI is on board. Time with Patient: Greater than 30
[2018-08-31] MEDS: MONTELUKAST 10 MG TAB PO SCH (20:14)
[2018-09-01] MEDS: MORPHINE SULFATE ER 30 MG TABLET PO SCH ×3 (00:10→16:54)
[2018-09-01] MEDS: HYDROmorphone 1 MG/ML 1 ML SYRINGE IVP PRN ×7 (01:22→21:33)
[2018-09-01] MEDS: SODIUM CHLORIDE 0.9% 1,000 ML IV SCH ×3 (01:22→17:47)
[2018-09-01] MEDS: AMYLASE PO SCH ×3 (07:07→16:52)
[2018-09-01] MEDS: LIPASE PO SCH ×3 (07:07→16:52)
[2018-09-01] MEDS: LORATADINE 10 MG TAB PO SCH (07:07)
[2018-09-01] MEDS: PANTOPRAZOLE 40 MG TABLET PO SCH (07:07)
[2018-09-01] MEDS: PROTEASE PO SCH ×3 (07:07→16:52)
[2018-09-01 10:27] LABS: ALT 21 U/L (9-52); AST 14 U/L (14-36); Albumin 3.5 g/dL (3.5-5.0); Alkaline Phosphatase 39 U/L (38-126); Anion Gap 6 mmol/L; Blood Urea Nitrogen 3 mg/dL (7-17); Calcium 8.7 mg/dL (8.4-10.2); Carbon Dioxide 22 mmol/L (22-30); Chloride 113 mmol/L (98-107); Glucose 76 mg/dL (74-99); Lipase 101 U/L (23-300); Potassium 3.3 mmol/L (3.5-5.1); Sodium 141 mmol/L (137-145); Total Bilirubin 0.5 mg/dL (0.2-1.3); Total Protein 5.8 g/dL (6.3-8.2)
[2018-09-01 10:41] LABS: Basophils % (A) 0 %; Eosinophils # (A) 0.2 k/uL (0-0.7); Eosinophils % (A) 3 %; HCT 37.9 % (34.0-46.0); Lymphocytes # (A) 1.8 k/uL (1.0-4.8); Lymphocytes % (A) 29 %; MCHC 30.9 g/dL (31.0-37.0); MCV 97.2 fL (80.0-100.0); Mean Platelet Volume 7.6; Monocytes # (A) 0.3 k/uL (0-1.0); Monocytes % (A) 6 %; Neutrophils # (A) 3.7 k/uL (1.3-7.7); Neutrophils % (A) 60 %; Platelet Count 213 k/uL (150-450); RDW 13.7 % (11.5-15.5); WBC 6.1 k/uL (3.8-10.6)
[2018-09-01 10:45] LABS: HGB 11.7 gm/dL (11.4-16.0)
--- NOTE | 2018-09-01 13:11 | P.PN ---
Subjective Progress Note Date: 09/01/18 Principal diagnosis: Abdominal pain chronic pancreatitis Feels better. No nausea or vomiting. Requesting diet advancement. Afebrile. Abdominal pain improved. Objective - Vital Signs Vital signs: Vital Signs Temp 97.9 F 09/01/18 05:00 Pulse 55 L 09/01/18 05:00 Resp 18 09/01/18 05:00 BP 136/77 09/01/18 05:00 Pulse Ox 98 09/01/18 05:00 Intake & Output 08/31/18 09/01/18 09/01/18 18:59 06:59 18:59 Intake Total 720 1200 Balance 720 1200 Weight 47.627 kg Intake: Oral 720 1200 Other: Voiding Method Toilet Toilet Toilet # Voids 2 2 - Exam General appearance: The patient is alert, oriented, in no acute distress. HET: Head is normocephalic and atraumatic. Pupils are equal and reactive. Oropharynx is clear without lesions. Neck: Supple without lymphadenopathy. Trachea midline. Heart: S1 S2. Regular rate and rhythm. Lungs: No crackles or wheezes are heard. Abdomen: Soft, nontender, nondistended with bowel sounds. No peritoneal signs. No palpable organomegaly or masses. Extremities: Normal skin color and turgor. No cyanosis, rash, ulceration, clubbing, or edema. Radial and pedal pulses are 2/4 bilaterally. Neurological: No focal deficits. Strength and sensation are grossly intact. - Labs CBC & Chem 7: 09/01/18 09:42 09/01/18 09:42 Labs: Abnormal Lab Results - Last 24 Hours (Table) 09/01/18 09/01/18 Range/Units 09:42 09:42 MCHC 30.9 L (31.0-37.0) g/dL Potassium 3.3 L (3.5-5.1) mmol/L Chloride 113 H (98-107) mmol/L BUN 3 L (7-17) mg/dL Total Protein 5.8 L (6.3-8.2) g/dL Microbiology - Last 24 Hours (Table) 08/30/18 16:00 Blood Culture - Preliminary Blood No Growth after 24 hours Assessment and Plan (1) Acute on chronic pancreatitis Narrative/Plan: 43-year-old female with a history of chronic pancreatitis without biochemical elevation recently evaluated at [facility] for chronic pancreatitis. EUS scheduled 09/27/2018. Nausea vomiting abdominal pain improved. Current Visit: No Status: Acute Code(s): K85.90 - ACUTE PANCREATITIS WITHOUT NECROSIS OR INFECTION, UNSP; K86.1 - OTHER CHRONIC PANCREATITIS SNOMED Code(s): 068118011 (2) Abdominal pain Current Visit: No Status: Acute Code(s): R10.9 - UNSPECIFIED ABDOMINAL PAIN SNOMED Code(s): 70215865 Plan: 1. Diet as tolerated. Continue think reticulocyte enzymes. Discharge per medicine. Follow-up with [facility] September 27 as previously advised. Assessment and plan a care discussed with Dr. Nagy
[2018-09-01] MEDS ORDERED: Potassium Replacement Protocol 1 EACH MISC MISCELLANE PRN ×2 (14:31→14:49)
[2018-09-01] MEDS ORDERED: Magnesium Replacement Protocol 1 EACH MISC MISCELLANE PRN (14:32)
--- NOTE | 2018-09-01 14:46 | P.PN ---
Subjective Progress Note Date: 09/01/18 interval history:Patient is a 43-year-old female with a known history of chronic pancreatitis, suspected due to medication related she took for Crohn's disease as per patient, Crohn's disease, GERD, or Sjogren's and rheumatoid arthritis and multiple other medical problems came to ER with complaints of abdominal pain mainly epigastric abdominal pain radiating to the back. Patient felt like similar to previous regular his pain. Patient says that she was recently discharged from hospital on Tuesday. Patient is currently followed with interest in [place] where she had MRCP and is scheduled for endoscopic ultrasound on September 27. Patient also had gastric emptying study done which was normal at the [facility]. Patient presents to hospital with nausea vomiting and abdominal pain. Denied any complaints of chest pain or shortness of breath. No headache or dizziness or lightheadedness. UA showed greater than 182 WBC and RBC. Not a good sample. Lipase 142 09/01/2018 Sitting up in chair,feels hungry asking for diet advancement. Nausea improving, no emesis. Loose diarrhea 1 episode this morning. Improving abdominal pain. diet advanced as per GI. Ambulating in hallway, tolerating ex ertion well.Afebrile.potassium 3.3,magnesium pending. Objective - Vital Signs Vital signs: Vital Signs Temp 97.9 F 09/01/18 13:06 Pulse 62 09/01/18 13:06 Resp 18 09/01/18 13:06 BP 103/64 09/01/18 13:06 Pulse Ox 100 09/01/18 13:06 Intake & Output 08/31/18 09/01/18 09/01/18 18:59 06:59 18:59 Intake Total 720 1200 Balance 720 1200 Weight 47.627 kg Intake: Oral 720 1200 Other: Voiding Method Toilet Toilet Toilet # Voids 2 2 2 - Exam Patient is sitting up in chair, no acute distress, awake alert and oriented. HEENT: Normocephalic. Neck is supple. Pupils reactive. Oral cavity is moist. Neck reveals no JVD, carotid bruits, or thyromegaly. CHEST EXAMINATION: Trachea is central. Symmetrical expansion. Lung arzate clear to auscultation and percussion. CARDIAC: Normal S1, S2 with no gallops. No murmurs ABDOMEN: Soft. ontender, nondistended. Bowel sounds normal. No organomegaly. Extremities: reveal no edema. No clubbing or cyanosis Neurologically awake, alert, oriented x3 with well-coordinated movements. strength and sensation grossly intact. No focal deficits. Skin: No rash - Labs CBC & Chem 7: 09/01/18 09:42 09/01/18 09:42 Labs: Abnormal Lab Results - Last 24 Hours (Table) 09/01/18 09/01/18 Range/Units 09:42 09:42 MCHC 30.9 L (31.0-37.0) g/dL Potassium 3.3 L (3.5-5.1) mmol/L Chloride 113 H (98-107) mmol/L BUN 3 L (7-17) mg/dL Total Protein 5.8 L (6.3-8.2) g/dL Microbiology - Last 24 Hours (Table) 08/30/18 16:00 Blood Culture - Preliminary Blood No Growth after 24 hours Assessment and Plan Assessment: Acute on chronic pancreatitis. Currently being worked up at EMS to [place]. Scheduled for endoscopic ultrasound on September 27. Patient had MRCP done there Possible urinary tract infection. History of chronic sinusitis. Suspected medication induced she took for Crohn's disease as per patient GERD Crohn's disease currently on medications Osteoarthritis and rheumatoid arthritis History of diverticulosis Frequent urinary tract infections hypokalemia plan: Continue on current medication regime ,monitoring and symptomatic treatment. Maintain IV fluid hydration Rocephin.diet advanced today as per GI, monitor overnight with potential discharge in a.m. Potassium 3.3,potassium replacement protocol ordered. Magnesium level pending. The impression and plan of care has been dictated as directed. : I performed a history and examination of this patient, discussed the same with the dictator. I agree with the dictator's note ,documented as a scribe. Any additional findings or plans will be noted.
[2018-09-01] MEDS: ONDANSETRON ODT 4 MG TAB PO PRN (14:47)
[2018-09-01] MEDS: POTASSIUM CHLORIDE ER 20 MEQ TAB.ER PO SCH ×2 (15:39→16:53)
[2018-09-01] MEDS: MONTELUKAST 10 MG TAB PO SCH (21:34)
[2018-09-02] MEDS: MORPHINE SULFATE ER 30 MG TABLET PO SCH ×2 (00:41→07:51)
[2018-09-02] MEDS: HYDROmorphone 1 MG/ML 1 ML SYRINGE IVP PRN ×3 (02:32→09:25)
[2018-09-02] MEDS: ONDANSETRON ODT 4 MG TAB PO PRN (05:49)
[2018-09-02] MEDS: SODIUM CHLORIDE 0.9% 1,000 ML IV SCH ×2 (06:26→11:51)
[2018-09-02] MEDS: LIPASE PO SCH ×2 (07:12→11:50)
[2018-09-02] MEDS: PROTEASE PO SCH ×2 (07:12→11:50)
[2018-09-02] MEDS: AMYLASE PO SCH ×2 (07:12→11:50)
[2018-09-02] MEDS: PANTOPRAZOLE 40 MG TABLET PO SCH (07:51)
[2018-09-02] MEDS: LORATADINE 10 MG TAB PO SCH (07:51)
[2018-09-02 11:53] VITALS: BP 109/55; PULSE 62; RESP 18; TEMP 98
--- NOTE | 2018-09-02 17:41 | PN ---
PROGRESS NOTE DATE OF DICTATION: September 02, 2018 Patient is a 43-year-old white female admitted to the hospital with abdominal pain, nausea, vomiting of 3 days duration. She is known to have chronic pancreatitis for which she follows at [facility] and in fact is scheduled for endoscopic ultrasound of the pancreas on September 27. She also has a longstanding history of Crohn's disease. Presently maintained on Humira for 3 years and remains in clinical remission. She follows with Dr. Nagy on an outpatient basis. This morning she is doing well. Her abdominal pain has resolved. On a full liquid diet, tolerating well. She reports no nausea, vomiting. No fever, chills or night sweats. PHYSICAL EXAMINATION: She appears comfortable in no apparent distress. VITAL SIGNS: Stable. Blood pressure is 132/86, pulse rate 41, temperature 98. HEENT examination unremarkable. Conjunctivae pink. Sclerae anicteric. Oral cavity no lesions. Neck no jugular venous distention or lymph node enlargement. Chest was clear to auscultation. HEART: Regular rate and rhythm. ABDOMEN: Soft. Mild tenderness in the epigastric area. Bowel sounds are positive. No organomegaly. Extremities: No pedal edema. Skin no rashes. NEUROLOGIC: Alert and oriented x3. No focal deficits. LABS: From today, magnesium 1.7. The rest of the labs are normal. IMPRESSION: 1. Chronic pancreatitis of unclear etiology. Presently being investigated at [facility]. She is scheduled for an EUS of the pancreas on September 27. 2. History of Crohn's disease on Humira for the last 3 years in clinical remission. RECOMMENDATIONS: 1. Advance diet as tolerated to a low-fat diet. 2. Since she is doing well, she can be discharged home today with an outpatient follow up with Dr. Nagy in 2-3 weeks. MMODL / IJN: [id number] /
== END 2018-09-02 14:51 | disposition home or self-care (01) ==
LOC: EC 14:37 → 3NMEDONC 17:58
PROVIDERS: ADMIT Internal Medicine; ATTEND Internal Medicine
DX: K85.90 Acute pancreatitis without necrosis or infection, unspecified (principal); K86.1 Other chronic pancreatitis; K50.90 Crohn's disease, unspecified, without complications; M06.9 Rheumatoid arthritis, unspecified; M19.90 Unspecified osteoarthritis, unspecified site; M35.00 Sjogren syndrome, unspecified; K21.0 Gastro-esophageal reflux disease with esophagitis; J32.9 Chronic sinusitis, unspecified; E87.6 Hypokalemia; G62.9 Polyneuropathy, unspecified; K31.84 Gastroparesis; Z87.440 Personal history of urinary (tract) infections; Z87.19 Personal history of other diseases of the digestive system; Z88.8 Allergy status to other drugs, medicaments and biological substances; Z79.899 Other long term (current) drug therapy; Z79.891 Long term (current) use of opiate analgesic; Z90.49 Acquired absence of other specified parts of digestive tract; Z82.49 Family history of ischemic heart disease and other diseases of the circulatory system
CPT/HCPCS: 96376 ×5; 96361 ×2; 96365; 96375 ×2; 99284; 36415; 80053 ×2; 82150; 83605; 83690 ×2; 83735 ×2; 85025 ×2; 81001; 87040; 87502; G0378 ×4; S0183; J2405; J0696 ×3; J1885; J1170 ×5

== ENCOUNTER 2018-09-24 17:50 | Inpatient (IN) | payer OTHER ==
[2018-09-24] MEDS ORDERED: SODIUM CHLORIDE 0.9% 1,000 ML IV STA (18:22)
[2018-09-24] MEDS ORDERED: SODIUM CHLORIDE 0.9% 500 ML 500 ML IV STA (18:22)
[2018-09-24] MEDS ORDERED: HYDROmorphone 1 MG/ML 1 ML SYRINGE IVP STA ×2 (18:22→20:27)
[2018-09-24] MEDS ORDERED: diphenhydrAMINE 50 MG/ML 1 ML VIAL IVP STA (18:23)
[2018-09-24] MEDS ORDERED: PROMETHAZINE INJ 25 MG in SODIUM CHLORIDE 0.9% 50 ML IVPB STA (18:23)
[2018-09-24 18:34] LABS: Basophils % (A) 0 %; Eosinophils # (A) 0.2 k/uL (0-0.7); Eosinophils % (A) 2 %; HCT 47.5 % (34.0-46.0); Lymphocytes # (A) 1.7 k/uL (1.0-4.8); Lymphocytes % (A) 18 %; MCH 30.8 pg (25.0-35.0); MCHC 34.6 g/dL (31.0-37.0); Mean Platelet Volume 7.1; Monocytes # (A) 0.5 k/uL (0-1.0); Monocytes % (A) 5 %; Neutrophils # (A) 6.6 k/uL (1.3-7.7); Neutrophils % (A) 72 %; Platelet Count 335 k/uL (150-450); RBC 5.34 m/uL (3.80-5.40); RDW 14.4 % (11.5-15.5); WBC 9.1 k/uL (3.8-10.6)
[2018-09-24 18:36] LABS: HGB 16.5 gm/dL (11.4-16.0)
[2018-09-24 18:43] LABS: ALT 21 U/L (9-52); AST 19 U/L (14-36); Alkaline Phosphatase 84 U/L (38-126); Amylase 69 U/L (30-110); Anion Gap 14 mmol/L; Blood Urea Nitrogen 13 mg/dL (7-17); Carbon Dioxide 23 mmol/L (22-30); Chloride 105 mmol/L (98-107); Glucose 89 mg/dL (74-99); Lipase 213 U/L (23-300); Potassium 4.1 mmol/L (3.5-5.1); Sodium 142 mmol/L (137-145); Total Bilirubin 1.5 mg/dL (0.2-1.3); Total Protein 8.3 g/dL (6.3-8.2)
--- NOTE | 2018-09-24 18:43 | ED ---
Abdominal Pain HPI - General Chief Complaint: Abdominal Pain Stated Complaint: Poss pancreatitis Time Seen by Provider: 09/24/18 18:12 Source: patient Mode of arrival: ambulatory Limitations: no limitations - History of Present Illness Initial Comments: 43-year-old female patient with past medical history significant for chronic pancreatitis and Crohn's disease presents to the emergency department today for evaluation of upper abdominal pain and vomiting. Patient states that symptoms started yesterday. Patient states she's been unable to keep down her pain medication today. Patient states that she did take a dissolvable Zofran around 1630. Patient states she has had several episodes of vomiting since taking the medication. She denies any fever or chills with this. States that she does have increased pain when taking a deep breath, the pain does radiate through to her back. Patient states symptoms feel similar to her previous pancreatitis flareups. States that she has been having loose bowel movements but states this is not unusual. Patient states pancreatitis was initially caused by her Crohn's medication. She denies alcohol or drug use. Patient denies any recent rash, shortness breath, chest pain, constipation, numbness, tingling, dizziness, weakness, hematuria, dysuria, urinary urgency, urinary frequency, headache, visual changes, or any other complaints. - Related Data Home Medications Medication Instructions Recorded Confirmed SUMAtriptan SUCCINATE [Imitrex] 100 mg PO DAILY PRN 06/07/16 09/24/18 Omeprazole 20 mg PO BID 08/05/16 09/24/18 Ondansetron [Zofran ODT] 8 mg PO Q8H PRN 08/18/16 09/24/18 Loratadine 10 mg PO DAILY 09/14/16 09/24/18 Montelukast Sodium [Singulair] 10 mg PO HS 09/14/16 09/24/18 Morphine Sulfate ER [Ms Contin] 30 mg PO Q8H 09/14/16 09/24/18 Morphine Sulfate Ir [MSIR] 15 mg PO BID PRN 09/14/16 09/24/18 Adalimumab [Humira Pen] 40 mg SQ [id number] 12/25/16 09/24/18 Lipase/Protease/Amylase [Thor Ambrocio 36,000 units PO AC-TID 08/25/18 09/24/18 36,000 Units Capsule] Adalimumab [Humira] 40 mg SQ Q14D 09/24/18 09/24/18 Allergies Allergy/AdvReac Type Severity Reaction Status Date / Time metoclopramide [From Reglan] AdvReac Intermediate Twitching Verified 09/24/18 18:29 Review of Systems ROS Statement: Those systems with pertinent positive or pertinent negative responses have been documented in the HPI. ROS Other: All systems not noted in ROS Statement are negative. Past Medical History Past Medical History: Eye Disorder, GERD/Reflux, GI Bleed, Neurologic Disorder, Osteoarthritis (OA), Rheumatoid Arthritis (RA) Additional Past Medical History / Comment(s): Chronic pancreatitis, Crohn's disease, chronic esophagitis, blood in stool, diverticulosis, hx ulcers, frequ ent UTI'S, hx blood clots in left arm pt states d/t picc lines, hx anemia with numerous transfusions, hx kidney failure from dehydration 12 yrs ago, neuropathy, cataracts. History of Any Multi-Drug Resistant Organisms: None Reported Past Surgical History: Cholecystectomy Additional Past Surgical History / Comment(s): colonsocopies, EGDs Past Anesthesia/Blood Transfusion Reactions: No Reported Reaction Additional Past Anesthesia/Blood Transfusion Reaction / Comment(s): Has had about 13 blood transfusions-no reactions. Past Psychological History: No Psychological Hx Reported Smoking Status: Never smoker Past Alcohol Use History: None Reported Past Drug Use History: None Reported - Past Family History Father Family Medical History: Myocardial Infarction ([place]) Additional Family Medical History / Comment(s): Father had drug abuse problem. He of a [place] at the age of 61 yrs. Mother Family Medical History: Hypertension Additional Family Medical History / Comment(s): Mother is living. General Exam Limitations: no limitations General appearance: alert, in no apparent distress, other (Physical well- developed, well-nourished adult female patient in no acute distress. Vital signs upon presentation are temperature 98.2F, pulse 77, respirations 18, blood pressure 150/102, pulse ox 95% on room air.) Eye exam: Present: normal appearance, PERRL, EOMI. Absent: scleral icterus, conjunctival injection, periorbital swelling ENT exam: Present: normal exam, normal oropharynx, mucous membranes moist Respiratory exam: Present: normal lung sounds bilaterally. Absent: respiratory distress, wheezes, rales, rhonchi, stridor Cardiovascular Exam: Present: regular rate, normal rhythm, normal heart sounds. Absent: systolic murmur, diastolic murmur, rubs, gallop, clicks GI/Abdominal exam: Present: soft, tenderness (Midepigastric tenderness), normal bowel sounds. Absent: distended, guarding, rebound, rigid Neurological exam: Present: alert, oriented X3, CN II-XII intact Psychiatric exam: Present: normal affect, normal mood Skin exam: Present: warm, dry, intact, normal color. Absent: rash Course Vital Signs 09/24/18 09/24/18 09/24/18 17:52 20:38 21:57 Temperature 98.3 F 98.6 F Pulse Rate 77 60 59 L Respiratory 18 18 18 Rate Blood Pressure 150/102 101/64 110/62 O2 Sat by Pulse 95 99 99 Oximetry Medical Decision Making - Medical Decision Making 43-year-old female patient presents to the emergency department today for upper abdominal pain with radiation through to the back and vomiting. Patient unable to keep down food or fluids at home. Unable to keep down her home medications. Patient does have history of chronic pancreatitis. Patient states she has to be admitted a couple times a month for exacerbations of this. Physical examination does reveal midepigastric tenderness. Patient was given multiple doses of IV pain medication nausea medication, she reports continued severe pain and nausea. I did discuss the case with Dr. Cabrera who agrees to admit for intractable abdominal pain, probable exacerbation of pancreatitis. We'll provide IV fluids, pain medication, nausea medication. - Lab Data Result diagrams: 09/24/18 16:15 09/24/18 16:15 Lab Results 09/24/18 09/24/18 09/24/18 Range/Units 16:15 16:15 16:15 WBC 9.1 (3.8-10.6) k/uL RBC 5.34 (3.80-5.40) m/uL Hgb 16.5 H D (11.4-16.0) gm/dL Hct 47.5 H (34.0-46.0) % MCV 89.0 D (80.0-100.0) fL MCH 30.8 (25.0-35.0) pg MCHC 34.6 (31.0-37.0) g/dL RDW 14.4 (11.5-15.5) % Plt Count 335 (150-450) k/uL Neutrophils % 72 % Lymphocytes % 18 % Monocytes % 5 % Eosinophils % 2 % Basophils % 0 % Neutrophils # 6.6 (1.3-7.7) k/uL Lymphocytes # 1.7 (1.0-4.8) k/uL Monocytes # 0.5 (0-1.0) k/uL Eosinophils # 0.2 (0-0.7) k/uL Basophils # 0.0 (0-0.2) k/uL Sodium 142 (137-145) mmol/L Potassium 4.1 (3.5-5.1) mmol/L Chloride 105 (98-107) mmol/L Carbon Dioxide 23 (22-30) mmol/L Anion Gap 14 mmol/L BUN 13 (7-17) mg/dL Creatinine 0.64 (0.52-1.04) mg/dL Est GFR (CKD-EPI)AfAm >90 (>60 ml/min/1.73 sqM) Est GFR (CKD-EPI)NonAf >90 (>60 ml/min/1.73 sqM) Glucose 89 (74-99) mg/dL Calcium 11.0 H (8.4-10.2) mg/dL Total Bilirubin 1.5 H (0.2-1.3) mg/dL AST 19 (14-36) U/L ALT 21 (9-52) U/L Alkaline Phosphatase 84 (38-126) U/L Troponin I <0.012 (0.000-0.034) ng/mL Total Protein 8.3 H (6.3-8.2) g/dL Albumin 5.0 (3.5-5.0) g/dL Amylase 69 (30-110) U/L Lipase 213 (23-300) U/L - EKG Data -: EKG Interpreted by [facility] EKG Comments: EKG obtained at 1835 shows normal sinus rhythm with a sinus arrhythmia. Ventricular rate is 65,. Interval 126, QRS duration 82, QT 424, QTC 440. No evidence of ST elevation or depression. - Radiology Data Radiology results: report reviewed, image reviewed 2 views of the abdomen are obtained. Report was reviewed in its entirety. Impression by Dr. Villalpando shows stable exam. Nonobstructive bowel gas pattern. Postop changes. Disposition Clinical Impression: Intractable abdominal pain, Intractable vomiting Disposition: ADMITTED IP TO THIS HOSP Condition: Serious Decision to Admit Reason: Admit from EC Decision Date: 09/24/18 Decision Time: 21:38
--- NOTE | 2018-09-24 19:14 | XR ---
Abdomen HISTORY: Pain Frontal view the abdomen on 2 images correlated to prior exam 08/25/2018 No interval change. IMPRESSION: Stable exam. Nonobstructive bowel gas pattern. Postop changes.
[2018-09-24] MEDS ORDERED: NALOXONE 0.4 MG/ML 1 ML VIAL IV PRN (21:35)
[2018-09-24] MEDS ORDERED: ONDANSETRON 4 MG/2 ML VIAL IVP STA (21:37)
[2018-09-24] MEDS: SODIUM CHLORIDE 0.9% 1,000 ML IV SCH (21:56)
[2018-09-24] MEDS ORDERED: MORPHINE SULFATE IR 15 MG TABLET PO PRN (23:20)
[2018-09-24] MEDS ORDERED: SUMAtriptan SUCCINATE 50 MG TAB PO PRN (23:20)
[2018-09-24] MEDS ORDERED: ADALIMUMAB 80 MG/0.8 ML SQ SCH (23:30)
[2018-09-24] MEDS: HYDROmorphone 1 MG/ML 1 ML SYRINGE IVP PRN (23:51)
[2018-09-25] MEDS: MORPHINE SULFATE ER 30 MG TABLET PO SCH ×4 (00:43→23:53)
[2018-09-25] MEDS: SODIUM CHLORIDE 0.9% 1,000 ML IV SCH ×3 (02:27→06:48)
[2018-09-25] MEDS: HYDROmorphone 1 MG/ML 1 ML SYRINGE IVP PRN ×7 (02:59→21:26)
[2018-09-25] MEDS: ONDANSETRON 4 MG/2 ML VIAL IVP PRN (08:34)
[2018-09-25 10:55] VITALS: BMI 18.6
[2018-09-25] MEDS: LORATADINE 10 MG TAB PO SCH (15:22)
[2018-09-25] MEDS: PANTOPRAZOLE 40 MG TABLET PO SCH (15:22)
[2018-09-25] MEDS ORDERED: LIPASE 5,000/PROTEASE 17,000/AMYLASE 24,000 PO SCH (16:00)
[2018-09-25] MEDS: CREON 36000 UNIT PO SCH (17:25)
[2018-09-25] MEDS: LIPASE 5,000/PROTEASE 17,000/AMYLASE 24,000 PO SCH (19:41)
[2018-09-25] MEDS: MONTELUKAST 10 MG TAB PO SCH (20:34)
--- NOTE | 2018-09-25 22:37 | P.HPIM ---
History of Present Illness H&P Date: 09/25/18 Chief Complaint: Nausea vomiting and abdominal pain Patient is a 43-year-old female with a past medical history of GERD, are sure that is, rheumatoid arthritis, Crohn's disease and chronic pancreatitis ( patient says pancreatitis was initially caused by her Crohn's disease m edications) with other multiple medical problems came to the hospital with the complaints of intractable nausea vomiting and abdominal pain. Patient has been having abdominal pain since yesterday. Patient tried taking Zofran at home without much improvement. Denied any blood in the vomitus. No complaints of fever or chills. No diarrhea. Abdominal pain is mainly in the epigastric region sometimes radiate to the back, similar to her previous acute pancreatitis flareups. Patient does have loose bowel movements chronically but no significant change recently. No complains of chest pain or shortness of breath. No headache or dizziness or lightheadedness. No dysuria or hematuria. Denied any visual changes. Denied any recent illnesses. Patient is supposed to follow with [facility] for endoscopic ultrasound sometime in next 2 weeks. KUB x-ray showed nonspecific bowel gas pattern. EKG showed normal sinus rhythm with sinus arrhythmia Lipase 368 Review of Systems Constitutional: Patient denies any fever or chills . No generalized weakness or weight loss. Abdomen: Nausea vomiting and abdominal pain.. Cardiovascular: Patient denies any chest pain or short of breath no palpitations. Respiratory: patient denied any cough is from production. No shortness of breath Neurologic: Patient denied any numbness or tingling headache. Musculoskeletal: Patient denies any complaints of joint swelling or deformity. Skin: Negative Psychiatric: Negative Endocrine: No heat or cold intolerance. No recent weight gain. Genitourinary: No dysuria or hematuria. All other 14 point ROS negative except the above Past Medical History Past Medical History: Eye Disorder, GERD/Reflux, GI Bleed, Neurologic Disorder, Osteoarthritis (OA), Rheumatoid Arthritis (RA) Additional Past Medical History / Comment(s): Chronic pancreatitis, Crohn's disease, chronic esophagitis, blood in stool, diverticulosis, hx ulcers, frequent UTI'S, hx blood clots in left arm pt states d/t picc lines, hx anemia with numerous transfusions, hx kidney failure from dehydration 12 yrs ago, neuropathy, cataracts. History of Any Multi-Drug Resistant Organisms: None Reported Past Surgical History: Cholecystectomy Additional Past Surgical History / Comment(s): colonsocopies, EGDs Past Anesthesia/Blood Transfusion Reactions: No Reported Reaction Additional Past Anesthesia/Blood Transfusion Reaction / Comment(s): Has had about 13 blood transfusions-no reactions. Past Psychological History: No Psychological Hx Reported Smoking Status: Never smoker Past Alcohol Use History: None Reported Past Drug Use History: None Reported - Past Family History Father Family Medical History: Myocardial Infarction ([place]) Additional Family Medical History / Comment(s): Father had drug abuse problem. He of a [place] at the age of 61 yrs. Mother Family Medical History: Hypertension Additional Family Medical History / Comment(s): Mother is living. Medications and Allergies Home Medications Medication Instructions Recorded Confirmed Type SUMAtriptan SUCCINATE [Imitrex] 100 mg PO DAILY PRN 06/07/16 09/24/18 History Omeprazole 20 mg PO BID 08/05/16 09/24/18 History Ondansetron [Zofran ODT] 8 mg PO Q8H PRN 08/18/16 09/24/18 History Loratadine 10 mg PO DAILY 09/14/16 09/24/18 History Montelukast Sodium [Singulair] 10 mg PO HS 09/14/16 09/24/18 History Morphine Sulfate ER [Ms Contin] 30 mg PO Q8H 09/14/16 09/24/18 History Morphine Sulfate Ir [MSIR] 15 mg PO BID PRN 09/14/16 09/24/18 History Adalimumab [Humira Pen] 40 mg SQ [id number] 12/25/16 09/24/18 History Lipase/Protease/Amylase [Thor Ambrocio 36,000 units PO AC-TID 08/25/18 09/24/18 History 36,000 Units Capsule] Adalimumab [Humira] 40 mg SQ Q14D 09/24/18 09/24/18 History Allergies Allergy/AdvReac Type Severity Reaction Status Date / Time metoclopramide [From Reglan] AdvReac Intermediate Twitching Verified 09/24/18 18:29 Physical Exam Vitals: Vital Signs Temp Pulse Pulse Resp BP BP Pulse Ox 09/25/18 09:00 55 L 09/25/18 07:15 99.2 F 62 18 99/57 98 09/25/18 03:42 16 09/25/18 00:00 98.5 F 57 L 16 117/72 98 09/24/18 22:20 17 09/24/18 21:57 98.6 F 59 L 18 110/62 99 09/24/18 20:38 60 18 101/64 99 09/24/18 17:52 98.3 F 77 18 150/102 95 Intake and Output 09/24/18 09/25/18 09/25/18 22:59 06:59 14:59 Other: Voiding Method Toilet Toilet # Voids 1 1 Weight 47.627 kg 47.627 kg PHYSICAL EXAMINATION: Patient is lying in the bed comfortably, no acute distress, awake alert and oriented.. HEENT: Normocephalic. Neck is supple. Pupils reactive. Nostrils clear. Oral cavity is moist. Ears reveal no drainage. Neck reveals no JVD, carotid bruits, or thyromegaly. CHEST EXAMINATION: Trachea is central. Symmetrical expansion. Lung arzate clear to auscultation and percussion. CARDIAC: Normal S1, S2 with no gallops. No murmurs ABDOMEN: Soft. Epigastric tenderness. Bowel sounds normal. No organomegaly. No abdominal bruits. Extremities: reveal no edema. No clubbing or cyanosis Neurologically awake, alert, oriented x3 with well-coordinated movements. No focal deficits noted Skin: No rash or skin lesions. Psychiatric: Coperative. Nonsuicidal Musculoskeletal: No joint swelling or deformity. Normal range of motion. Results CBC & Chem 7: 09/24/18 16:15 09/24/18 16:15 Labs: Abnormal Lab Results - Last 24 Hours (Table) 09/24/18 09/24/18 09/25/18 Range/Units 16:15 16:15 07:58 Hgb 16.5 H D (11.4-16.0) gm/dL Hct 47.5 H (34.0-46.0) % Calcium 11.0 H (8.4-10.2) mg/dL Total Bilirubin 1.5 H (0.2-1.3) mg/dL Total Protein 8.3 H (6.3-8.2) g/dL Lipase 368 H (23-300) U/L Thrombosis Risk Factor Assmnt - DVT/VTE Prophylaxis DVT/VTE Prophylaxis: Pharmacologic Prophylaxis ordered - Choose All That Apply Each Factor Represents 1 point: Age 41-60 years Other Risk Factors: No Thrombosis Risk Factor Assessment Total Risk Factor Score: 1 Thrombosis Risk Factor Assessment Level: Low Risk Assessment and Plan Assessment: Acute on chronic pancreatitis. Crohn's disease Dermatology arthritis GERD Osteoarthritis History of diverticulosis Frequent UTIs DVT prophylaxis Plan: Patient will be continued on IV hydration. Continue with symptomatic management for nausea vomiting and abdominal pain. Nothing by mouth. Follow up closely and further recommendations based on the clinical course. Prognosis is guarded. Past Alcohol Use History: None Reported Past Drug Use History: None Reported Time with Patient: Greater than 30
[2018-09-26] MEDS: HYDROmorphone 1 MG/ML 1 ML SYRINGE IVP PRN ×8 (00:46→22:57)
[2018-09-26] MEDS: ONDANSETRON 4 MG/2 ML VIAL IVP PRN ×2 (04:28→12:32)
[2018-09-26] MEDS: SODIUM CHLORIDE 0.9% 1,000 ML IV SCH ×3 (07:28→22:54)
[2018-09-26] MEDS: MORPHINE SULFATE ER 30 MG TABLET PO SCH ×3 (07:45→22:57)
[2018-09-26] MEDS: PANTOPRAZOLE 40 MG TABLET PO SCH (07:45)
[2018-09-26] MEDS: LORATADINE 10 MG TAB PO SCH (07:45)
[2018-09-26] MEDS: CREON 36000 UNIT PO SCH ×3 (07:46→17:42)
[2018-09-26] MEDS ORDERED: TEMAZEPAM 15 MG CAP PO PRN (17:24)
[2018-09-26] MEDS: HEPARIN SODIUM,PORCINE 5,000 UNIT/ML 1 ML VIAL SQ SCH (20:08)
[2018-09-26] MEDS: MONTELUKAST 10 MG TAB PO SCH (20:08)
[2018-09-26] MEDS: PANTOPRAZOLE 40 MG/10 ML VIAL IVP SCH (20:08)
--- NOTE | 2018-09-27 01:28 | P.PN ---
Subjective Progress Note Date: 09/26/18 Principal diagnosis: Acute on chronic pancreatitis Patient is a 43-year-old female with a past medical history of GERD, are sure that is, rheumatoid arthritis, Crohn's disease and chronic pancreatitis ( patient says pancreatitis was initially caused by her Crohn's disease medica tions) with other multiple medical problems came to the hospital with the complaints of intractable nausea vomiting and abdominal pain. Patient has been having abdominal pain since yesterday. Patient tried taking Zofran at home without much improvement. Denied any blood in the vomitus. No complaints of fever or chills. No diarrhea. Abdominal pain is mainly in the epigastric region sometimes radiate to the back, similar to her previous acute pancreatitis flareups. Patient does have loose bowel movements chronically but no significant change recently. No complains of chest pain or shortness of breath. No headache or dizziness or lightheadedness. No dysuria or hematuria. Denied any visual changes. Denied any recent illnesses. Patient is supposed to follow with [facility] for endoscopic ultrasound sometime in next 2 weeks. KUB x-ray showed nonspecific bowel gas pattern. EKG showed normal sinus rhythm with sinus arrhythmia Lipase 368 09/26/2018 Patient is still complaining of epigastric abdominal pain and intractable nausea. not tolerating oral diet.. No fever no chills. No complaints of chest pain or shortness of breath. Patient does have headache. No dizziness or lightheadedness. #Current medications reviewed. Objective - Vital Signs Vital signs: Vital Signs Temp 98.6 F 09/26/18 19:37 Pulse 51 L 09/26/18 19:37 Resp 16 09/26/18 19:37 BP 106/69 09/26/18 19:37 Pulse Ox 99 09/26/18 19:37 Intake & Output 09/26/18 09/26/18 09/27/18 06:59 18:59 06:59 Other: Voiding Method Toilet Toilet Toilet # Voids 3 1 - Exam PHYSICAL EXAMINATION: Patient is lying in the bed comfortably, mild distress, awake alert and oriented.. HEENT: Normocephalic. Neck is supple. Pupils reactive. Nostrils clear. Oral cavity is moist. Ears reveal no drainage. Neck reveals no JVD, carotid bruits, or thyromegaly. CHEST EXAMINATION: Trachea is central. Symmetrical expansion. Lung arzate clear to auscultation and percussion. CARDIAC: Normal S1, S2 with no gallops. No murmurs ABDOMEN: Soft. Epigastric tenderness. Bowel sounds normal. No organomegaly. No abdominal bruits. Extremities: reveal no edema. No clubbing or cyanosis Neurologically awake, alert, oriented x3 with well-coordinated movements. No focal deficits noted Skin: No rash or skin lesions. Psychiatric: Coperative. Nonsuicidal. Anxious. Musculoskeletal: No joint swelling or deformity. Normal range of motion. - Labs CBC & Chem 7: 09/24/18 16:15 09/24/18 16:15 Assessment and Plan Assessment: Acute on chronic pancreatitis. Intractable nausea vomiting and abdominal pain Crohn's disease Rheumatoid arthritis GERD Osteoarthritis History of diverticulosis Frequent UTIs DVT prophylaxis with heparin subcu Plan: Patient will be continued on IV hydration. Continue with symptomatic management for nausea vomiting and abdominal pain. Nothing by mouth. Follow up closely and further recommendations based on the clinical course. Prognosis is guarded. Time with Patient: Greater than 30
[2018-09-27] MEDS: HYDROmorphone 1 MG/ML 1 ML SYRINGE IVP PRN ×5 (02:08→21:36)
[2018-09-27] MEDS: ONDANSETRON 4 MG/2 ML VIAL IVP PRN ×3 (05:10→21:36)
[2018-09-27 05:32] LABS: Appearance,Urine Clear (Clear); Bilirubin,Urine Negative (Negative); Blood,Urine Negative (Negative); Color,Urine Yellow; Glucose,Urine (UA) Negative (Negative); Ketones,Urine 1+ (Negative); Leukocyte Esterase,Urine Negative (Negative); Nitrite,Urine Negative (Negative); PH, Urine 6.5 (5.0-8.0); Protein,Urine Negative (Negative)
[2018-09-27] MEDS: SODIUM CHLORIDE 0.9% 1,000 ML IV SCH ×3 (05:58→17:07)
[2018-09-27] MEDS: HEPARIN SODIUM,PORCINE 5,000 UNIT/ML 1 ML VIAL SQ SCH ×2 (08:11→21:36)
[2018-09-27] MEDS: LORATADINE 10 MG TAB PO SCH (08:11)
[2018-09-27] MEDS: MORPHINE SULFATE ER 30 MG TABLET PO SCH ×2 (08:11→15:52)
[2018-09-27] MEDS: PANTOPRAZOLE 40 MG/10 ML VIAL IVP SCH ×2 (08:12→21:36)
[2018-09-27 08:20] LABS: Anion Gap 8 mmol/L; Blood Urea Nitrogen 7 mg/dL (7-17); Calcium 9.1 mg/dL (8.4-10.2); Carbon Dioxide 20 mmol/L (22-30); Chloride 112 mmol/L (98-107); Glucose 82 mg/dL (74-99); Potassium 3.7 mmol/L (3.5-5.1); Sodium 140 mmol/L (137-145)
[2018-09-27] MEDS: CREON 36000 UNIT PO SCH ×3 (08:21→17:00)
[2018-09-27 08:24] LABS: Basophils % (A) 0 %; Eosinophils # (A) 0.1 k/uL (0-0.7); Eosinophils % (A) 2 %; Lymphocytes # (A) 1.9 k/uL (1.0-4.8); Lymphocytes % (A) 36 %; MCH 31.1 pg (25.0-35.0); MCV 91.4 fL (80.0-100.0); Mean Platelet Volume 7.4; Monocytes # (A) 0.4 k/uL (0-1.0); Monocytes % (A) 8 %; Neutrophils # (A) 2.6 k/uL (1.3-7.7); Neutrophils % (A) 52 %; Platelet Count 245 k/uL (150-450); RBC 4.27 m/uL (3.80-5.40); RDW 13.6 % (11.5-15.5); WBC 5.1 k/uL (3.8-10.6)
[2018-09-27 08:25] LABS: HGB 13.3 gm/dL (11.4-16.0)
[2018-09-27 15:29] VITALS: RESP 16
--- NOTE | 2018-09-27 20:51 | PN ---
PROGRESS NOTE DATE OF SERVICE: 09/27/2018 This 44-year-old woman was admitted with acute on chronic pancreatitis being closely monitored. No chest pain. No palpitations. No fever. Gastroenterology following the patient. Please note patient is being followed by [facility] also. EXAM: Alert and oriented times three. Pulse 58, blood pressure 111/69, respirations 18, temp 98.2, pulse ox 100 percent on room air. HEENT: Conjunctivae normal. NECK: No jugular venous distention. CARDIOVASCULAR: S1, S2 muffled. RESPIRATION: Diminished in the bases. No rhonchi. No crackles. Abdomen is soft. Mild diffuse tenderness. Legs are no edema, no swelling. CENTRAL NERVOUS SYSTEM: No focal deficits. LABS: CBC within normal limits and lipase 368. ASSESSMENT: 1. Severe abdominal pain with acute on chronic pancreatitis. 2. Intractable nausea, vomiting and abdominal pain related to pancreatitis. 3. Crohn's disease. 4. Rheumatoid arthritis. 5. History of gastroesophageal reflux disease. 6. History of degenerative joint disease. 7. History of diverticulosis. 8. Frequent urinary tract infections. 9. Deep vein thrombosis prophylaxis. RECOMMENDATIONS AND DISCUSSION: Recommend to continue current medications, management. Symptomatic treatment. Otherwise, continue to monitor. Otherwise closely follow with Gastroenterology and followup. Follow closely with [facility]. Further recommendations to follow. MMODL / IJN: [id number] /
[2018-09-27] MEDS: MONTELUKAST 10 MG TAB PO SCH (21:37)
[2018-09-28] MEDS: MORPHINE SULFATE ER 30 MG TABLET PO SCH ×2 (00:38→07:34)
[2018-09-28] MEDS: HYDROmorphone 1 MG/ML 1 ML SYRINGE IVP PRN ×4 (01:35→12:28)
[2018-09-28] MEDS: LORATADINE 10 MG TAB PO SCH (07:33)
[2018-09-28] MEDS: HEPARIN SODIUM,PORCINE 5,000 UNIT/ML 1 ML VIAL SQ SCH (07:33)
[2018-09-28] MEDS: PANTOPRAZOLE 40 MG/10 ML VIAL IVP SCH (07:33)
[2018-09-28] MEDS: CREON 36000 UNIT PO SCH ×2 (07:34→11:41)
[2018-09-28] MEDS: SODIUM CHLORIDE 0.9% 1,000 ML IV SCH ×2 (07:35→11:41)
[2018-09-28 08:04] VITALS: BP 113/70; PULSE 65; TEMP 97.9
[2018-09-28 08:39] LABS: Anion Gap 7 mmol/L; Blood Urea Nitrogen 4 mg/dL (7-17); Calcium 8.7 mg/dL (8.4-10.2); Carbon Dioxide 19 mmol/L (22-30); Chloride 114 mmol/L (98-107); Glucose 76 mg/dL (74-99); Sodium 140 mmol/L (137-145)
--- NOTE | 2018-09-28 22:58 | DS ---
DISCHARGE SUMMARY DATE OF SERVICE: 09/28/2018 FINAL DIAGNOSES: 1. Severe abdominal pain with acute on chronic pancreatitis. 2. Intractable nausea, vomiting, abdominal pain related to pancreatitis. 3. Crohn's disease. 4. Rheumatoid arthritis. 5. History of gastroesophageal reflux disease. 6. History of degenerative joint disease. 7. History of diverticulosis. 8. Frequent urinary tract infections. 9. Deep venous thrombosis prophylaxis. DISCHARGE DISPOSITION: The patient will be discharged in stable condition with guarded prognosis. HISTORY OF PRESENT ILLNESS: This 43-year-old woman with a past medical history of multiple medical problems was admitted with severe abdominal pain as well as acute on chronic pancreatitis, treated symptomatically. Patient improved significantly. Diet was advanced. Patient apparently had an evaluation at [facility] with endoscopic ultrasound this week. The patient was also seen by Gastroenterology. On exam, vitals are stable. CARDIOVASCULAR SYSTEM: S1, S2 muffled. ABDOMEN: Soft, non-tender. NERVOUS SYSTEM: No focal deficit. DISCHARGE ADVICE AND MEDICATIONS: 1. Diet is cardiac, soft, low fat. 2. Activity limited until followup. 3. Follow up with Dr. Derek Dobbins in 2 to 3 days. 4. Follow up with [facility] G[facility]enter[facility] as recommended. 5. Creon t.i.d. 6. Humira 40 mg subcutaneously q.14 days. 7. Humira Pen. 8. Imitrex 100 mg p.r.n. 9. Loratadine 10 mg daily. 10.MS Contin 30 mg q.8. 11.MS-IR 15 mg b.i.d. p.r.n. 12.Omeprazole 20 mg p.o. b.i.d. 13.Singulair 10 mg at bedtime. 14.Zofran 8 mg p.o. q.8 p.r.n. MMODL / IJN: [id number] /
[2018-10-08] MEDS ORDERED: ADALIMUMAB 40 MG SQ SCH (09:00)
== END 2018-09-28 13:48 | disposition home or self-care (01) | DRG 439 ==
LOC: EC 17:50 → 1SOBS 22:10 → OBSVTOIN 09-26 11:48 → 4SSUR 09-26 13:43
PROVIDERS: ADMIT Internal Medicine; ATTEND Internal Medicine
DX: K85.90 Acute pancreatitis without necrosis or infection, unspecified (principal); K50.90 Crohn's disease, unspecified, without complications; G62.9 Polyneuropathy, unspecified; K86.1 Other chronic pancreatitis; M19.90 Unspecified osteoarthritis, unspecified site; K21.9 Gastro-esophageal reflux disease without esophagitis; K57.90 Diverticulosis of intestine, part unspecified, without perforation or abscess without bleeding; H26.9 Unspecified cataract; M06.9 Rheumatoid arthritis, unspecified; K20.9 Esophagitis, unspecified; Z79.899 Other long term (current) drug therapy; Z90.49 Acquired absence of other specified parts of digestive tract; Z87.440 Personal history of urinary (tract) infections; Z88.8 Allergy status to other drugs, medicaments and biological substances; Z82.49 Family history of ischemic heart disease and other diseases of the circulatory system
CPT/HCPCS: 36415; 74018; 80048; 80053; 81003; 82150; 83690; 84484; 85025; 93005; 96361; 96365; 96375; 96376; 99285

== ENCOUNTER 2018-10-21 10:47 | Emergency (ER) | payer OTHER ==
[2018-10-21 10:51] VITALS: RESP 18; TEMP 98.6
[2018-10-21] MEDS ORDERED: MORPHINE SULFATE 4 MG/ML SYRINGE IV STA (11:04)
[2018-10-21] MEDS ORDERED: ONDANSETRON 4 MG/2 ML VIAL IVP STA (11:04)
[2018-10-21] MEDS ORDERED: SODIUM CHLORIDE 0.9% 1,000 ML IV STA (11:04)
--- NOTE | 2018-10-21 11:06 | ED ---
General Adult HPI - General Chief complaint: Abdominal Pain Stated complaint: PANCREATITIS FLARE Time Seen by Provider: 10/21/18 10:52 Source: patient, RN notes reviewed Mode of arrival: ambulatory Limitations: no limitations - History of Present Illness Initial comments: 43-year-old female history of Crohn's disease chronic recurrent pancreatitis presenting with epigastric abdominal pain and vomiting. Patient states that this is typical of her pancreatitis flare. She has a history of pancreatic stone. She is status post cholecystectomy. She denies alcohol abuse. Denies lower abdominal pain. Denies fever. She had several episodes of vomiting this morning as well as some loose stool which is also chronic for this patient. - Related Data Home Medications Medication Instructions Recorded Confirmed SUMAtriptan SUCCINATE [Imitrex] 100 mg PO DAILY PRN 06/07/16 10/21/18 Omeprazole 20 mg PO BID 08/05/16 10/21/18 Ondansetron [Zofran ODT] 8 mg PO Q8H PRN 08/18/16 10/21/18 Loratadine 10 mg PO DAILY 09/14/16 10/21/18 Montelukast Sodium [Singulair] 10 mg PO HS 09/14/16 10/21/18 Morphine Sulfate ER [Ms Contin] 30 mg PO Q8H 09/14/16 10/21/18 Morphine Sulfate Ir [MSIR] 15 mg PO BID PRN 09/14/16 10/21/18 Lipase/Protease/Amylase [Sammyon Dr 36,000 units PO AC-TID 08/25/18 10/21/18 36,000 Units Capsule] Adalimumab [Humira] 40 mg SQ Q14D 09/24/18 10/21/18 Allergies Allergy/AdvReac Type Severity Reaction Status Date / Time metoclopramide [From Reglan] AdvReac Intermediate Twitching Verified 10/21/18 11:23 Review of Systems ROS Statement: Those systems with pertinent positive or pertinent negative responses have been documented in the HPI. ROS Other: All systems not noted in ROS Statement are negative. Past Medical History Past Medical History: Eye Disorder, GERD/Reflux, GI Bleed, Neurologic Disorder, Osteoarthritis (OA), Rheumatoid Arthritis (RA) Additional Past Medical History / Comment(s): Chronic pancreatitis, Crohn's disease, chronic esophagitis, blood in stool, diverticulosis, hx ulcers, frequent UTI'S, hx blood clots in left arm pt states d/t picc lines, hx anemia with numerous transfusions, hx kidney failure from dehydration 12 yrs ago, neuropathy, cataracts. History of Any Multi-Drug Resistant Organisms: None Reported Past Surgical History: Cholecystectomy Additional Past Surgical History / Comment(s): colonsocopies, EGDs Past Anesthesia/Blood Transfusion Reactions: No Reported Reaction Additional Past Anesthesia/Blood Transfusion Reaction / Comment(s): Has had about 13 blood transfusions-no reactions. Past Psychological History: No Psychological Hx Reported Smoking Status: Never smoker Past Alcohol Use History: None Reported Past Drug Use History: None Reported - Past Family History Father Family Medical History: Myocardial Infarction (ID) Additional Family Medical History / Comment(s): Father had drug abuse problem. He of a ID at the age of 61 yrs. Mother Family Medical History: Hypertension Additional Family Medical History / Comment(s): Mother is living. General Exam Limitations: no limitations General appearance: alert, in no apparent distress Head exam: Present: atraumatic, normocephalic Eye exam: Present: normal appearance, PERRL ENT exam: Present: mucous membranes dry Neck exam: Present: normal inspection. Absent: meningismus Respiratory exam: Present: normal lung sounds bilaterally. Absent: respiratory distress, wheezes Cardiovascular Exam: Present: regular rate, normal rhythm GI/Abdominal exam: Present: soft, tenderness (Epigastric tenderness to palpatio n). Absent: distended, guarding, rebound Extremities exam: Present: normal inspection, normal capillary refill. Absent: pedal edema Neurological exam: Present: alert, oriented X3, CN II-XII intact. Absent: motor sensory deficit Psychiatric exam: Present: normal affect, normal mood Skin exam: Present: warm, dry, intact. Absent: cyanosis, diaphoretic Course Vital Signs 10/21/18 10/21/18 10:48 12:16 Temperature 98.6 F Pulse Rate 79 60 Respiratory 18 18 Rate Blood Pressure 108/105 116/87 O2 Sat by Pulse 99 98 Oximetry Medical Decision Making - Medical Decision Making 43-year-old female history chronic pancreatitis. Complaints of abdominal pain and vomiting. Patient's well-appearing stable vitals she has epigastric abdominal tenderness, no rebound or guarding. Laboratory studies are obtained, normal white blood cell count, stable hemoglobin, normal electrolytes, lipase is normal. Patient given several doses of antiemetic and pain medication the emergency department. I did discuss case patient's admitting physician Dr. Healy who is very familiar with this patient. Did recommend trial of fentanyl patch and slow advancement of a clear liquid diet. I offered this to the patient as well as admission for symptomatic control. She opted for outpatient pain control and symptom control at home. She is given a fentanyl patch in the emergency department. She will advance diet slowly at home. - Lab Data Result diagrams: 10/21/18 11:30 10/21/18 11:30 Lab Results 10/21/18 10/21/18 Range/Units 11:30 11:30 WBC 9.1 (3.8-10.6) k/uL RBC 4.84 (3.80-5.40) m/uL Hgb 15.1 (11.4-16.0) gm/dL Hct 45.0 (34.0-46.0) % MCV 92.9 (80.0-100.0) fL MCH 31.2 (25.0-35.0) pg MCHC 33.6 (31.0-37.0) g/dL RDW 13.8 (11.5-15.5) % Plt Count 306 (150-450) k/uL Neutrophils % 75 % Lymphocytes % 17 % Monocytes % 5 % Eosinophils % 1 % Basophils % 0 % Neutrophils # 6.8 (1.3-7.7) k/uL Lymphocytes # 1.6 (1.0-4.8) k/uL Monocytes # 0.5 (0-1.0) k/uL Eosinophils # 0.1 (0-0.7) k/uL Basophils # 0.0 (0-0.2) k/uL Sodium 141 (137-145) mmol/L Potassium 4.5 (3.5-5.1) mmol/L Chloride 110 H (98-107) mmol/L Carbon Dioxide 21 L (22-30) mmol/L Anion Gap 10 mmol/L BUN 9 (7-17) mg/dL Creatinine 0.61 (0.52-1.04) mg/dL Est GFR (CKD-EPI)AfAm >90 (>60 ml/min/1.73 sqM) Est GFR (CKD-EPI)NonAf >90 (>60 ml/min/1.73 sqM) Glucose 101 H (74-99) mg/dL Calcium 10.6 H (8.4-10.2) mg/dL Total Bilirubin 1.1 (0.2-1.3) mg/dL AST 20 (14-36) U/L ALT 17 (9-52) U/L Alkaline Phosphatase 67 (38-126) U/L Total Protein 7.6 (6.3-8.2) g/dL Albumin 4.7 (3.5-5.0) g/dL Amylase 64 (30-110) U/L Lipase 128 (23-300) U/L Disposition Clinical Impression: Chronic abdominal pain, Acute on chronic pancreatitis Disposition: HOME SELF-CARE Condition: Fair Instructions (If sedation given, give patient instructions): Abdominal Pain (ED), Pancreatitis (ED) Is patient prescribed a controlled substance at d/c from ED?: No Referrals: Derek Dobbins MD [Primary Care Provider] - 1-2 days Time of Disposition: 14:17
[2018-10-21 11:46] LABS: Basophils % (A) 0 %; Eosinophils # (A) 0.1 k/uL (0-0.7); Eosinophils % (A) 1 %; HGB 15.1 gm/dL (11.4-16.0); Lymphocytes # (A) 1.6 k/uL (1.0-4.8); Lymphocytes % (A) 17 %; MCH 31.2 pg (25.0-35.0); MCHC 33.6 g/dL (31.0-37.0); MCV 92.9 fL (80.0-100.0); Mean Platelet Volume 6.4; Monocytes # (A) 0.5 k/uL (0-1.0); Monocytes % (A) 5 %; Neutrophils # (A) 6.8 k/uL (1.3-7.7); Neutrophils % (A) 75 %; Platelet Count 306 k/uL (150-450); RBC 4.84 m/uL (3.80-5.40); RDW 13.8 % (11.5-15.5); WBC 9.1 k/uL (3.8-10.6)
[2018-10-21 11:54] LABS: ALT 17 U/L (9-52); AST 20 U/L (14-36); Albumin 4.7 g/dL (3.5-5.0); Alkaline Phosphatase 67 U/L (38-126); Amylase 64 U/L (30-110); Anion Gap 10 mmol/L; Blood Urea Nitrogen 9 mg/dL (7-17); Calcium 10.6 mg/dL (8.4-10.2); Carbon Dioxide 21 mmol/L (22-30); Chloride 110 mmol/L (98-107); Glucose 101 mg/dL (74-99); Lipase 128 U/L (23-300); Potassium 4.5 mmol/L (3.5-5.1); Sodium 141 mmol/L (137-145); Total Bilirubin 1.1 mg/dL (0.2-1.3); Total Protein 7.6 g/dL (6.3-8.2)
[2018-10-21] MEDS ORDERED: MORPHINE SULFATE 4 MG/ML SYRINGE IVP STA (12:17)
[2018-10-21] MEDS ORDERED: HYDROmorphone 1 MG/ML 1 ML SYRINGE IVP STA (13:34)
[2018-10-21 14:22] VITALS: BP 116/88; PULSE 75
== END 2018-10-21 14:24 | disposition home or self-care (01) ==
LOC: EC 10:47
DX: K86.1 Other chronic pancreatitis (principal); K85.90 Acute pancreatitis without necrosis or infection, unspecified; K21.9 Gastro-esophageal reflux disease without esophagitis; M19.90 Unspecified osteoarthritis, unspecified site; M06.9 Rheumatoid arthritis, unspecified; Z79.891 Long term (current) use of opiate analgesic; Z79.899 Other long term (current) drug therapy; Z88.8 Allergy status to other drugs, medicaments and biological substances; Z90.49 Acquired absence of other specified parts of digestive tract
CPT/HCPCS: 36415; 80053; 82150; 83690; 85025; 99284; 96374; 96375 ×2; 96376; 96361; J2270; J2405; J1170

== ENCOUNTER 2018-10-23 15:21 | Inpatient (IN) | payer OTHER ==
[2018-10-23] MEDS ORDERED: SODIUM CHLORIDE 0.9% 1,000 ML IV STA ×2 (16:18)
[2018-10-23] MEDS ORDERED: ONDANSETRON 4 MG/2 ML VIAL IVP STA (16:18)
[2018-10-23] MEDS ORDERED: PANTOPRAZOLE 40 MG/10 ML VIAL IVP STA (16:18)
[2018-10-23] MEDS ORDERED: MORPHINE SULFATE 4 MG/ML SYRINGE IVP STA (16:57)
--- NOTE | 2018-10-23 17:05 | ED ---
Abdominal Pain HPI - General Chief Complaint: Abdominal Pain Stated Complaint: abd pain Time Seen by Provider: 10/23/18 16:18 Source: patient, RN notes reviewed, old records reviewed Mode of arrival: ambulatory Limitations: no limitations - History of Present Illness Initial Comments: 43-year-old female with a history of chronic pancreatitis presents today for evaluation for worsening abdominal pain, nausea and vomiting. Patient states that she was recently admitted and discharged. Patient states that she sees specialist and [place] for chronic pancreatitis Patient Patient that she's had no recent fevers or chills. She denies any chest pain shortness breath. - Related Data Home Medications Medication Instructions Recorded Confirmed SUMAtriptan SUCCINATE [Imitrex] 100 mg PO DAILY PRN 06/07/16 10/23/18 Omeprazole 20 mg PO BID 08/05/16 10/23/18 Ondansetron [Zofran ODT] 8 mg PO Q8H PRN 08/18/16 10/23/18 Loratadine 10 mg PO DAILY 09/14/16 10/23/18 Montelukast Sodium [Singulair] 10 mg PO HS 09/14/16 10/23/18 Morphine Sulfate ER [Ms Contin] 30 mg PO Q8H 09/14/16 10/23/18 Morphine Sulfate Ir [MSIR] 15 mg PO BID PRN 09/14/16 10/23/18 Lipase/Protease/Amylase [Thor Ambrocio 36,000 units PO AC-TID 08/25/18 10/23/18 36,000 Units Capsule] Adalimumab [Humira] 40 mg SQ Q14D 09/24/18 10/23/18 Allergies Allergy/AdvReac Type Severity Reaction Status Date / Time metoclopramide [From Reglan] AdvReac Intermediate Twitching Verified 10/23/18 16:39 Review of Systems ROS Statement: Those systems with pertinent positive or pertinent negative responses have been documented in the HPI. ROS Other: All systems not noted in ROS Statement are negative. Past Medical History Past Medical History: Eye Disorder, GERD/Reflux, GI Bleed, Neurologic Disorder, Osteoarthritis (OA), Rheumatoid Arthritis (RA) Additional Past Medical History / Comment(s): Chronic pancreatitis, Crohn's disease, chronic esophagitis, blood in stool, diverticulosis, hx ulcers, frequent UTI'S, hx blood clots in left arm pt states d/t picc lines, hx anemia with numerous transfusions, hx kidney failure from dehydration 12 yrs ago, neuropathy, cataracts. History of Any Multi-Drug Resistant Organisms: None Reported Past Surgical History: Cholecystectomy Additional Past Surgical History / Comment(s): colonsocopies, EGDs Past Anesthesia/Blood Transfusion Reactions: No Reported Reaction Additional Past Anesthesia/Blood Transfusion Reaction / Comment(s): Has had about 13 blood transfusions-no reactions. Past Psychological History: No Psychological Hx Reported Smoking Status: Never smoker Past Alcohol Use History: None Reported Past Drug Use History: None Reported - Past Family History Father Family Medical History: Myocardial Infarction (SD) Additional Family Medical History / Comment(s): Father had drug abuse problem. He of a SD at the age of 61 yrs. Mother Family Medical History: Hypertension Additional Family Medical History / Comment(s): Mother is living. General Exam - General Exam Comments Initial Comments: 43-year-old male. Alert and oriented. No distress. Limitations: no limitations General appearance: alert, in no apparent distress Head exam: Present: atraumatic, normocephalic, normal inspection Eye exam: Present: normal appearance, PERRL, EOMI. Absent: scleral icterus, conjunctival injection, periorbital swelling ENT exam: Present: normal exam, mucous membranes moist Neck exam: Present: normal inspection. Absent: tenderness, meningismus, lym phadenopathy Respiratory exam: Present: normal lung sounds bilaterally. Absent: respiratory distress, wheezes, rales, rhonchi, stridor Cardiovascular Exam: Present: regular rate, normal rhythm, normal heart sounds. Absent: systolic murmur, diastolic murmur, rubs, gallop, clicks GI/Abdominal exam: Present: tenderness (Diffuse abdominal tenderness.), normal bowel sounds. Absent: soft, distended, guarding, rebound, rigid Extremities exam: Present: normal inspection, full ROM, normal capillary refill. Absent: tenderness, pedal edema, joint swelling, calf tenderness Back exam: Present: normal inspection Neurological exam: Present: alert, oriented X3, CN II-XII intact Psychiatric exam: Present: normal affect, normal mood Course Vital Signs 10/23/18 10/23/18 10/23/18 15:26 16:30 17:23 Temperature 99.0 F Pulse Rate 104 H 82 79 Respiratory 20 16 16 Rate Blood Pressure 140/69 126/103 115/89 O2 Sat by Pulse 97 97 96 Oximetry 10/23/18 10/23/18 18:40 19:24 Temperature Pulse Rate 81 74 Respiratory 18 16 Rate Blood Pressure 105/62 105/74 O2 Sat by Pulse 99 100 Oximetry Medical Decision Making - Medical Decision Making This is a 43-year-old female presents emergency department for evaluation complains of intractable abdominal pain. Nausea and vomiting. History of chronic pancreatitis. Given IV fluids labwork was reviewed and normal. Patient was given 1 dose of morphine in ED. I was about to discharge Patient Patient states that she feels uncomfortable leaving worsening pain. Requested I call Dr. Mabry. She was recently discharged from hospital with the fentanyl patch. 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 Discussed this with Patient who still agrees to admission. Patient will receive nausea medicine IV fluids. - Lab Data Result diagrams: 10/23/18 17:02 10/23/18 17:02 Lab Results 10/23/18 10/23/18 10/23/18 Range/Units 17:02 17:02 17:02 WBC 6.7 (3.8-10.6) k/uL RBC 4.59 (3.80-5.40) m/uL Hgb 14.0 (11.4-16.0) gm/dL Hct 42.9 (34.0-46.0) % MCV 93.6 (80.0-100.0) fL MCH 30.6 (25.0-35.0) pg MCHC 32.7 (31.0-37.0) g/dL RDW 13.7 (11.5-15.5) % Plt Count 303 (150-450) k/uL Neutrophils % 57 % Lymphocytes % 33 % Monocytes % 6 % Eosinophils % 1 % Basophils % 0 % Neutrophils # 3.8 (1.3-7.7) k/uL Lymphocytes # 2.2 (1.0-4.8) k/uL Monocytes # 0.4 (0-1.0) k/uL Eosinophils # 0.1 (0-0.7) k/uL Basophils # 0.0 (0-0.2) k/uL APTT 25.6 (22.0-30.0) sec Sodium 141 (137-145) mmol/L Potassium 4.4 (3.5-5.1) mmol/L Chloride 111 H (98-107) mmol/L Carbon Dioxide 23 (22-30) mmol/L Anion Gap 7 mmol/L BUN 9 (7-17) mg/dL Creatinine 0.62 (0.52-1.04) mg/dL Est GFR (CKD-EPI)AfAm >90 (>60 ml/min/1.73 sqM) Est GFR (CKD-EPI)NonAf >90 (>60 ml/min/1.73 sqM) Glucose 80 (74-99) mg/dL Calcium 9.8 (8.4-10.2) mg/dL Total Bilirubin 0.6 (0.2-1.3) mg/dL AST 14 (14-36) U/L ALT 10 (9-52) U/L Alkaline Phosphatase 60 (38-126) U/L Total Protein 7.1 (6.3-8.2) g/dL Albumin 4.4 (3.5-5.0) g/dL Amylase 77 (30-110) U/L Lipase 222 (23-300) U/L Urine Color Urine Appearance (Clear) Urine pH (5.0-8.0) Ur Specific Amelia (1.001-1.035) Urine Protein (Negative) Urine Glucose (UA) (Negative) Urine Ketones (Negative) Urine Blood (Negative) Urine Nitrite (Negative) Urine Bilirubin (Negative) Urine Urobilinogen (<2.0) mg/dL Ur Leukocyte Esterase (Negative) Urine RBC (0-5) /hpf Urine WBC (0-5) /hpf Ur Squamous Epith Cells (0-4) /hpf Urine Bacteria (None) /hpf Urine Mucus (None) /hpf 10/23/18 Range/Units 17:30 WBC (3.8-10.6) k/uL RBC (3.80-5.40) m/uL Hgb (11.4-16.0) gm/dL Hct (34.0-46.0) % MCV (80.0-100.0) fL MCH (25.0-35.0) pg MCHC (31.0-37.0) g/dL RDW (11.5-15.5) % Plt Count (150-450) k/uL Neutrophils % % Lymphocytes % % Monocytes % % Eosinophils % % Basophils % % Neutrophils # (1.3-7.7) k/uL Lymphocytes # (1.0-4.8) k/uL Monocytes # (0-1.0) k/uL Eosinophils # (0-0.7) k/uL Basophils # (0-0.2) k/uL APTT (22.0-30.0) sec Sodium (137-145) mmol/L Potassium (3.5-5.1) mmol/L Chloride (98-107) mmol/L Carbon Dioxide (22-30) mmol/L Anion Gap mmol/L BUN (7-17) mg/dL Creatinine (0.52-1.04) mg/dL Est GFR (CKD-EPI)AfAm (>60 ml/min/1.73 sqM) Est GFR (CKD-EPI)NonAf (>60 ml/min/1.73 sqM) Glucose (74-99) mg/dL Calcium (8.4-10.2) mg/dL Total Bilirubin (0.2-1.3) mg/dL AST (14-36) U/L ALT (9-52) U/L Alkaline Phosphatase (38-126) U/L Total Protein (6.3-8.2) g/dL Albumin (3.5-5.0) g/dL Amylase (30-110) U/L Lipase (23-300) U/L Urine Color Yellow Urine Appearance Cloudy H (Clear) Urine pH 6.5 (5.0-8.0) Ur Specific Amelia 1.018 (1.001-1.035) Urine Protein Negative (Negative) Urine Glucose (UA) Negative (Negative) Urine Ketones Negative (Negative) Urine Blood Trace H (Negative) Urine Nitrite Negative (Negative) Urine Bilirubin Negative (Negative) Urine Urobilinogen 2.0 (<2.0) mg/dL Ur Leukocyte Esterase Small H (Negative) Urine RBC 3 (0-5) /hpf Urine WBC 2 (0-5) /hpf Ur Squamous Epith Cells 8 H (0-4) /hpf Urine Bacteria Rare H (None) /hpf Urine Mucus Occasional H (None) /hpf 10/23/18 18:51 EKG shows normal sinus rhythm normal ECG. Ventricular rate of 71 bpm. SC interval is 120 ms. QS duration 78 ms. QT QTc is 380/412 ms. Disposition Clinical Impression: Intractable abdominal pain, Nausea & vomiting Disposition: ADMITTED IP TO THIS HOSP Condition: Stable Is patient prescribed a controlled substance at d/c from ED?: No Referrals: Derek Dobbins MD [Primary Care Provider] - 1-2 days Time of Disposition: 19:32
[2018-10-23 17:17] LABS: Basophils % (A) 0 %; Eosinophils # (A) 0.1 k/uL (0-0.7); Eosinophils % (A) 1 %; HCT 42.9 % (34.0-46.0); Lymphocytes # (A) 2.2 k/uL (1.0-4.8); Lymphocytes % (A) 33 %; MCH 30.6 pg (25.0-35.0); MCHC 32.7 g/dL (31.0-37.0); MCV 93.6 fL (80.0-100.0); Mean Platelet Volume 6.5; Monocytes # (A) 0.4 k/uL (0-1.0); Monocytes % (A) 6 %; Neutrophils # (A) 3.8 k/uL (1.3-7.7); Neutrophils % (A) 57 %; Platelet Count 303 k/uL (150-450); RBC 4.59 m/uL (3.80-5.40); RDW 13.7 % (11.5-15.5); WBC 6.7 k/uL (3.8-10.6)
[2018-10-23 17:27] LABS: ALT 10 U/L (9-52); AST 14 U/L (14-36); Albumin 4.4 g/dL (3.5-5.0); Alkaline Phosphatase 60 U/L (38-126); Amylase 77 U/L (30-110); Anion Gap 7 mmol/L; Blood Urea Nitrogen 9 mg/dL (7-17); Calcium 9.8 mg/dL (8.4-10.2); Carbon Dioxide 23 mmol/L (22-30); Chloride 111 mmol/L (98-107); Glucose 80 mg/dL (74-99); Lipase 222 U/L (23-300); Potassium 4.4 mmol/L (3.5-5.1); Sodium 141 mmol/L (137-145); Total Bilirubin 0.6 mg/dL (0.2-1.3); Total Protein 7.1 g/dL (6.3-8.2)
[2018-10-23] MEDS ORDERED: SODIUM CHLORIDE 0.9% 2,000 ML IV ONE (18:04)
[2018-10-23 18:05] LABS: Appearance,Urine Cloudy (Clear); Bacteria,Urine Rare /hpf; Bilirubin,Urine Negative (Negative); Blood,Urine Trace (Negative); Color,Urine Yellow; Glucose,Urine (UA) Negative (Negative); Ketones,Urine Negative (Negative); Leukocyte Esterase,Urine Small (Negative); Mucus,Urine Occasional /hpf; Nitrite,Urine Negative (Negative); PH, Urine 6.5 (5.0-8.0); Protein,Urine Negative (Negative); RBC,Urine 3 /hpf (0-5); Specific Gravity,Urine 1.018 (1.001-1.035); Squamous Epithelial Cell,Urine 8 /hpf (0-4); WBC,Urine 2 /hpf (0-5)
--- NOTE | 2018-10-23 18:19 | XR ---
EXAMINATION TYPE: XR KUB DATE OF EXAM: 10/23/2018 COMPARISON: 09/24/2018 HISTORY: Abdominal pain TECHNIQUE: 2 views FINDINGS: 2 views upright show no sign of intestinal obstruction or pneumoperitoneum. Fecal pattern i s normal. There is no evidence of a mass. Lung bases are clear. There are clips from cholecystectomy. IMPRESSION: Nonacute abdomen. No change.
[2018-10-23] MEDS ORDERED: NALOXONE 0.4 MG/ML 1 ML VIAL IV PRN (19:34)
[2018-10-23] MEDS ORDERED: SODIUM CHLORIDE 0.9% 1,000 ML IV SCH (19:45)
[2018-10-23] MEDS: DEXTROSE 5%-0.45% NACL 1,000 ML IV SCH (22:28)
[2018-10-23] MEDS: MONTELUKAST 10 MG TAB PO SCH (22:28)
[2018-10-23] MEDS: ENOXAPARIN 40 MG/0.4 ML SYRINGE SQ SCH (22:28)
[2018-10-24] MEDS: ONDANSETRON 4 MG/2 ML VIAL IVP PRN (03:25)
[2018-10-24] MEDS: DEXTROSE 5%-0.45% NACL 1,000 ML IV SCH ×4 (05:45→20:00)
--- NOTE | 2018-10-24 06:28 | HP ---
HISTORY AND PHYSICAL DATE OF ADMISSION: 10/23/2018 PRESENTING COMPLAINT: Abdominal pain, nausea. HISTORY OF PRESENTING COMPLAINT: This is a 43-year-old patient who follows with Dr. Dobbins and Dr. Nagy. The patient also has been following at the [facility]. Chronic stable medical conditions include osteoarthritis, rheumatoid arthritis, chronic diverticulosis, peripheral neuropathy, esophagitis. At the [facility], she has been told she has chronic pancreatitis and that maybe there is a stone. She has been asked to come back in about 6 weeks. The patient also had celiac plexus for which she is followed with Dr. Moya and also with a local anesthesia pain group here in the hospital. The patient was in the ER 2 days ago with increasing abdominal pain, some nausea, vomiting, unable to keep her pain medications down, did tell them to give her a fentanyl patch. The patient comes down today again with increasing abdominal pain, nausea, vomiting. No more vomiting here. No fever. No chills. The abdominal pain is in the epigastric area localized there. REVIEW OF SYSTEMS: CONSTITUTIONAL: Tired. HEENT: None. RESPIRATORY: None. GASTROINTESTINAL: As above. GENITOURINARY: None. MUSCULOSKELETAL: Pain in the joints. DERMATOLOGICAL: None. HEMATOLOGICAL: None. LYMPHATIC: None. PSYCHIATRY: A bit anxious. NEUROLOGICAL: Had some tingling in hands and feet. PAST MEDICAL HISTORY: Chronic nonspecific colitis, rheumatoid arthritis, chronic pancreatitis, protein calorie malnutrition, chronic pain syndrome, esophagitis, left breast mass. PAST SURGICAL HISTORY: Cholecystectomy. SOCIAL HISTORY: No smoking. No alcohol. Occasionally does marijuana. Lives by herself. FAMILY HISTORY: Hypertension. HOME MEDICATIONS: 1. Imitrex 100 mg daily p.r.n. 2. Zofran 8 mg q.8 p.r.n. 3. Omeprazole 20 mg b.i.d. 4. Morphine sulfate immediate release 15 mg b.i.d. p.r.n. 5. MS Contin 30 mg q.8. 6. Singulair 10 mg q.h.s. 7. Claritin 10 mg p.o. daily. 8. Creon 36,000 units p.o. a.c. t.i.d. 9. Humira 40 subcu every 14 days. ALLERGIES: Allergy to REGLAN. PHYSICAL EXAMINATION: On examination, temperature 98.2, pulse 58, respiration 16, blood pressure 94/60, pulse ox 98% on room air. GENERAL APPEARANCE: Thin build. Sitting up, awake. BMI 19.5, not in distress. EYES: Pupils equal. Conjunctivae normal. HENT: External appearance of nose and ears normal. Oral cavity normal. NECK: JVD not raised. Mass not palpable. RESPIRATORY: Effort normal. LUNGS: Fair entry. CARDIOVASCULAR: First and second sounds normal. No edema. ABDOMEN: Soft. Epigastric tenderness. No guarding or rigidity. Liver and spleen not palpable. LYMPHATIC: No lymph node palpable in the neck and axillae. PSYCHIATRY: Alert and oriented x3. Mood and affect slightly anxious appearing. NEUROLOGICAL: Pupils equal. Cranial nerves grossly intact. Power and sensation grossly intact. INVESTIGATIONS: White count 6.7, hemoglobin 14.0, potassium 4.4. BUN and creatinine is normal. Amylase and lipase is normal. Abdominal x-ray nonacute. ASSESSMENT: 1. Acute on chronic pancreatitis flare up. Patient does not have any rise of enzymes, which is typical for her presentation. The patient has been told she has chronic pancreatitis at the [facility] and she is due to follow up with them in another 6 weeks. 2. Chronic esophagitis. 3. Nonspecific colitis, chronic. 4. Mild protein-calorie malnutrition with decreased oral intake. 5. Chronic rheumatoid arthritis. PLAN: The patient already had a fentanyl patch of 25. We will add another patch of 12.5. Give IV fluids. Patient may tolerate a clear liquid diet. When she is able to tolerate her pills, she will be switched over to oral medication. The patient does follow up with Dr. Moya and will have the patient follow up with him. Care was discussed with the patient. MMODL / IJN: [id number] /
[2018-10-24] MEDS: Lipase/Protease/Amylase [Creon Dr 36,000 Units Capsule] PO SCH ×3 (08:03→16:49)
[2018-10-24] MEDS: LORATADINE 10 MG TAB PO SCH (08:03)
[2018-10-24] MEDS: KETOROLAC 30 MG/ML 1 ML VIAL IVP PRN (08:07)
[2018-10-24] MEDS: PANTOPRAZOLE 40 MG/10 ML VIAL IV SCH (08:07)
[2018-10-24] MEDS: ENOXAPARIN 40 MG/0.4 ML SYRINGE SQ SCH (08:07)
[2018-10-24 08:24] LABS: Glucose,Whole Blood 88 mg/dL (75-99)
--- NOTE | 2018-10-24 11:06 | P.PAINCN ---
History of Present Illness - Reason for Consult Consult date: 10/24/18 abdominal pain - History of Present Illness Mrs. Martinez is a 43-year-old female who presents as a new patient consult. We have seen her before in the hospital. She has a history of chronic pancreatitis. She was admitted again today for symptoms of chronic management. Prakash. She was seen at [facility] diagnosed with chronic pancreatitis. She has been in the hospital for a day and has been on fentanyl patch 25 g for her pain. She is nothing by mouth even to medications. On the outpatient basis she sees a pain doctor and received 90 morphine equivalence per day. She was started on 25 g patch which she reported to the doctor that did not help very much. Sounds like he attempted to place 37 g patch instead of the 25 but there appeared to be some air. At this time she continues to have pain in the abdomen without very much radiation to the back. She denies any new symptoms such as lower extremity weakness numbness or tingling. She is having difficulty swallowing a associated with nausea. Past Medical History Past Medical History: Eye Disorder, GERD/Reflux, GI Bleed, Neurologic Disorder, Osteoarthritis (OA), Rheumatoid Arthritis (RA) Additional Past Medical History / Comment(s): Chronic pancreatitis, Crohn's disease, chronic esophagitis, blood in stool, diverticulosis, hx ulcers, frequent UTI'S, hx blood clots in left arm pt states d/t picc lines, hx anemia with numerous transfusions, hx kidney failure from dehydration 12 yrs ago, neuropathy, cataracts. History of Any Multi-Drug Resistant Organisms: None Reported Past Surgical History: Cholecystectomy Additional Past Surgical History / Comment(s): colonsocopies, EGDs Past Anesthesia/Blood Transfusion Reactions: No Reported Reaction Additional Past Anesthesia/Blood Transfusion Reaction / Comm: Has had about 13 blood transfusions-no reactions. Past Psychological History: No Psychological Hx Reported Additional Psychological History / Comment(s): . Smoking Status: Never smoker Past Alcohol Use History: None Reported Additional Past Alcohol Use History / Comment(s): past occ alcohol -quit 2008 Past Drug Use History: None Reported Additional Drug Use History / Comment(s): . - Past Family History Father Family Medical History: Myocardial Infarction (NV) Additional Family Medical History / Comment(s): Father had drug abuse problem. He of a NV at the age of 61 yrs. Mother Family Medical History: Hypertension Additional Family Medical History / Comment(s): Mother is living. Medications and Allergies Home Medications Medication Instructions Recorded Confirmed Type SUMAtriptan SUCCINATE [Imitrex] 100 mg PO DAILY PRN 06/07/16 10/23/18 History Omeprazole 20 mg PO BID 08/05/16 10/23/18 History Ondansetron [Zofran ODT] 8 mg PO Q8H PRN 08/18/16 10/23/18 History Loratadine 10 mg PO DAILY 09/14/16 10/23/18 History Montelukast Sodium [Singulair] 10 mg PO HS 09/14/16 10/23/18 History Morphine Sulfate ER [Ms Contin] 30 mg PO Q8H 09/14/16 10/23/18 History Morphine Sulfate Ir [MSIR] 15 mg PO BID PRN 09/14/16 10/23/18 History Lipase/Protease/Amylase [Creon Dr 36,000 units PO AC-TID 08/25/18 10/23/18 History 36,000 Units Capsule] Adalimumab [Humira] 40 mg SQ Q14D 09/24/18 10/23/18 History Allergies Allergy/AdvReac Type Severity Reaction Status Date / Time metoclopramide [From Reglan] AdvReac Intermediate Twitching Verified 10/23/18 16:39 Physical Exam Vitals: Vital Signs Temp Pulse Pulse Resp BP BP Pulse Ox 10/24/18 08:00 98.5 F 83 16 112/71 98 10/24/18 03:31 16 10/24/18 00:00 16 10/23/18 23:44 98.1 F 59 L 16 91/58 98 10/23/18 22:46 16 10/23/18 20:56 98.2 F 58 L 16 94/60 98 10/23/18 20:14 78 16 128/90 99 10/23/18 19:24 74 16 105/74 100 10/23/18 18:40 81 18 105/62 99 10/23/18 17:23 79 16 115/89 96 10/23/18 16:30 82 16 126/103 97 10/23/18 15:26 99.0 F 104 H 20 140/69 97 Intake and Output 10/23/18 10/24/18 10/24/18 22:59 06:59 14:59 Other: Voiding Method Toilet Toilet Toilet # Voids 1 Weight 49.895 kg PHYSICAL EXAM: Constitutional: Awake and alert no distress Cardiovascular exam: Regular rate, no lower extremity edema, palpable pulses bilaterally Respiratory exam: No audible wheezing, no accessory muscle usage Abdominal exam: Soft, tender to palpation to even light touch. Nondistended. There is no rebound tenderness. Muscular skeletal exam: - Cervical spine: Nontender to palpation bilaterally. Range of motion is not limited. Spurling is negative bilateral. Facet loading is negative bilaterally - Lumbar spine: Preserved lumbar lordosis. No changes in skin. Nontender palpation bilateral. Patient has full range of motion in flexion and extension as well as lateral sidebending. Straight leg raise is negative. Neuro exam: Normal sensation bilateral upper and lower extremities. ative Psychiatric exam: Cooperative, good insight Results CBC & Chem 7: 10/23/18 17:02 10/23/18 17:02 Labs: Abnormal Lab Results - Last 24 Hours (Table) 10/23/18 10/23/18 Range/Units 17:02 17:30 Chloride 111 H (98-107) mmol/L Urine Appearance Cloudy H (Clear) Urine Blood Trace H (Negative) Ur Leukocyte Esterase Small H (Negative) Ur Squamous Epith Cells 8 H (0-4) /hpf Urine Bacteria Rare H (None) /hpf Urine Mucus Occasional H (None) /hpf Assessment and Plan Assessment: #1 chronic pancreatitis #2. Opioid Dependence Plan: After discussion with the patient and review of her medications. I did run a maps and look at her outpatient regimen. She is on 90 morphine equivalence at home. She last filled her morphine extended release on October 09 and her immediate release was filled on October 02. Since the patient nothing by mouth to medications as well. I believe that continuing fentanyl patch at 37 g would help her as this is her baseline. 37 g patches would be equivalent to her 90 morphine equivalence at home. I did advise of this to be the best route to move forward with for the next day or 2. I placed the orders to have 37 g patches placed on the patient. Please remove any old patches. She should not require any prescription to go home with her she should have at least 5-7 more days of her home medications at home. PQRS Measure Charge Sheet PQRS Narrative: Smoking Status Never smoker Do You Want the Pneumonia No Vaccine AT THIS TIME? Blood Pressure [Left Arm] 112/71 Blood Pressure 128/90 Pain Intensity [Upper Abdomen] 10 Pain Intensity 10 Pain Scale Used Numeric (1 - 10) Scale Used Numeric (1 - 10) Home Medications: Ambulatory Orders SUMAtriptan SUCCINATE [Imitrex] 100 mg PO DAILY PRN 06/07/16 Omeprazole 20 mg PO BID 08/05/16 Ondansetron [Zofran ODT] 8 mg PO Q8H PRN 08/18/16 Loratadine 10 mg PO DAILY 09/14/16 Montelukast Sodium [Singulair] 10 mg PO HS 09/14/16 Morphine Sulfate ER [Ms Contin] 30 mg PO Q8H 09/14/16 Morphine Sulfate Ir [MSIR] 15 mg PO BID PRN 09/14/16 Lipase/Protease/Amylase [Thor Ambrocio 36,000 Units Capsule] 36,000 units PO AC-TID 08/25/18 Adalimumab [Humira] 40 mg SQ Q14D 09/24/18
[2018-10-24 11:39] LABS: Glucose,Whole Blood 103 mg/dL (75-99)
[2018-10-24] MEDS ORDERED: SUMAtriptan SUCCINATE 50 MG TAB PO PRN (16:04)
[2018-10-24] MEDS ORDERED: ONDANSETRON ODT 8 MG TAB.RAPDIS PO PRN (16:04)
[2018-10-24] MEDS ORDERED: MORPHINE SULFATE IR 15 MG TABLET PO PRN (16:04)
[2018-10-24] MEDS ORDERED: MORPHINE SULFATE ER 30 MG TABLET PO SCH (16:15)
[2018-10-24 16:40] LABS: Glucose,Whole Blood 159 mg/dL (75-99)
[2018-10-24] MEDS: HYDROmorphone 0.5 MG/0.5 ML SYRINGE IVP PRN ×2 (16:50→21:11)
--- NOTE | 2018-10-24 17:58 | PN ---
PROGRESS NOTE DATE OF SERVICE: 10/24/2018 This 43-year-old woman who was admitted with abdominal pain with acute on chronic pain was also evaluated at [facility]. Patient recently had endoscopic ultrasound as well. Findings are pending at this time. The patient also had significant pain issues. The patient had chronic pain management followup with Dr. Moya's office. Currently the patient is also seen by pain management team and started on Duragesic patches at this time. Past medical history reviewed. REVIEW OF SYSTEMS: CARDIOVASCULAR SYSTEM: No angina, palpitations. RESPIRATORY SYSTEM: As mentioned earlier. GI: As mentioned earlier. : No dysuria or retention. NERVOUS SYSTEM: No numbness, weakness. CURRENT MEDICATIONS: Reviewed. They include: 1. Dextrose 1000 mg b.i.d. 2. Lovenox 40 mg daily. 3. Duragesic patch 37 mcg q.72 hours. 4. Dilaudid p.r.n. 5. Toradol. 6. Claritin. 7. Singulair. 8. MSIR. 9. MS Contin. 10.Zofran. 11.Protonix. 12.Imitrex. PHYSICAL EXAMINATION: Patient is alert, oriented x3. Pulse 83, blood pressure 112/71, respirations 16, temperature 98.4, pulse ox 98% on room air. HEENT: Conjunctivae normal. NECK: No jugular venous distention. CARDIOVASCULAR SYSTEM: S1, S2 muffled. RESPIRATORY SYSTEM: Breath sounds diminished at the bases. A few scattered rhonchi and crackles. ABDOMEN: Soft. Mild diffuse tenderness at the epigastrium present. No guarding. No rigidity. No mass palpable. No ascites. Bowel sounds present. LEGS: No edema. No swelling. NERVOUS SYSTEM: Higher functions as mentioned earlier. Moves all 4 limbs. No focal motor or sensory deficit. LYMPHATICS: No lymph node palpable in neck, axillae or groin. SKIN: No ulcer, rash, bleeding. JOINTS: No active deforming arthropathy. LABS: CBC within normal limits. Amylase, lipase normal. Glucose noted. ASSESSMENT: 1. Upper abdominal pain, severe, with failure of outpatient treatment with acute on chronic pancreatitis. 2. History of recent endoscopic ultrasound at [facility]. 3. History of chronic esophagitis. 4. History of nonspecific colitis. 5. Chronic rheumatoid arthritis. 6. Moderate protein-calorie malnutrition. 7. History of degenerative joint disease. 8. History of diverticulosis. 9. History of frequent urinary tract infections. 10.History of Crohn's disease. RECOMMENDATIONS AND DISCUSSION: In this 43-year-old woman who presented with multiple complex medical issues, we will monitor the patient closely, continue the current management, continue with symptomatic treatment. Otherwise, I would recommend pain medication. Add Dilaudid to the current regimen. I would also recommend close followup at [facility] and the pain management team. Guarded prognosis because of multiple complex medical issues. Further recommendations to follow. MMODL / IJN: [id number] /
[2018-10-24] MEDS: MONTELUKAST 10 MG TAB PO SCH (19:55)
[2018-10-24] MEDS ORDERED: NON-FORMULARY DRUG (Omeprazole [Omeprazole] 20 MG) PO SCH (21:00)
[2018-10-25] MEDS: HYDROmorphone 0.5 MG/0.5 ML SYRINGE IVP PRN ×6 (01:06→22:18)
[2018-10-25] MEDS ORDERED: ONDANSETRON ODT 4 MG TAB PO PRN (02:23)
[2018-10-25 06:16] LABS: Basophils % (A) 0 %; Eosinophils # (A) 0.1 k/uL (0-0.7); Eosinophils % (A) 2 %; HCT 36.6 % (34.0-46.0); HGB 11.6 gm/dL (11.4-16.0); Hypochromasia Slight; Lymphocytes # (A) 1.9 k/uL (1.0-4.8); Lymphocytes % (A) 46 %; MCH 30.6 pg (25.0-35.0); MCHC 31.6 g/dL (31.0-37.0); MCV 96.6 fL (80.0-100.0); Mean Platelet Volume 6.7; Monocytes # (A) 0.3 k/uL (0-1.0); Monocytes % (A) 7 %; Neutrophils # (A) 1.7 k/uL (1.3-7.7); Neutrophils % (A) 42 %; Platelet Count 211 k/uL (150-450); RBC 3.78 m/uL (3.80-5.40); RDW 13.6 % (11.5-15.5); WBC 4.2 k/uL (3.8-10.6)
[2018-10-25 06:23] LABS: Anion Gap 4 mmol/L; Blood Urea Nitrogen 4 mg/dL (7-17); Calcium 8.6 mg/dL (8.4-10.2); Carbon Dioxide 20 mmol/L (22-30); Chloride 116 mmol/L (98-107); Glucose 89 mg/dL (74-99); Potassium 3.9 mmol/L (3.5-5.1); Sodium 140 mmol/L (137-145)
[2018-10-25 06:52] LABS: Glucose,Whole Blood 103 mg/dL (75-99)
[2018-10-25] MEDS: Lipase/Protease/Amylase [Creon Dr 36,000 Units Capsule] PO SCH ×2 (08:37→18:28)
[2018-10-25] MEDS: PANTOPRAZOLE 40 MG/10 ML VIAL IV SCH (08:41)
[2018-10-25] MEDS: LORATADINE 10 MG TAB PO SCH (08:41)
[2018-10-25] MEDS: ENOXAPARIN 40 MG/0.4 ML SYRINGE SQ SCH (08:41)
[2018-10-25] MEDS: ONDANSETRON 4 MG/2 ML VIAL IVP PRN ×2 (10:11→18:35)
[2018-10-25 11:47] LABS: Glucose,Whole Blood 103 mg/dL (75-99)
[2018-10-25 16:38] LABS: Glucose,Whole Blood 130 mg/dL (75-99)
--- NOTE | 2018-10-25 17:19 | PN ---
PROGRESS NOTE DATE OF SERVICE: This 43-year-old woman is admitted with intractable as well as acute on chronic pancreatitis. The patient had features of chronic pancreatitis. The patient was evaluated by [facility]. The patient has multiple medications. The Pain Management team has also seen the patient and started on Duragesic patch. No chest pain. No palpitations. No fever. EXAM: Alert and oriented x3. The pulse is 55, blood pressure 91/60, respirations 16, temperature 98.1, pulse ox 98% on room air. HEENT: Conjunctivae normal. NECK: No jugular venous distention. CARDIOVASCULAR: S1, S2. RESPIRATORY: Breath sounds diminished in the bases. No rhonchi. No crackles. ABDOMEN: Soft, mild diffuse tenderness in the upper part. LEGS: No edema. No swelling. CENTRAL NERVOUS SYSTEM: No focal deficits. LABS: At this time shows WBC 4.8, hemoglobin 11.6, sodium 140, potassium 3.8. Accu-Cheks are noted. ASSESSMENT: 1. Upper abdominal pain, severe with failure of outpatient treatment with chronic pancreatitis, acute on chronic pain syndrome. 2. History of recent endoscopic ultrasound, [facility]. 3. History of chronic esophagitis. 4. History of nonspecific colitis. 5. Chronic rheumatoid arthritis history. 6. Moderate protein calorie malnutrition. 7. History of degenerative joint disease. 8. History of diverticulosis. 9. History of frequent urinary tract infections. 10.History of Crohn's disease. RECOMMENDATIONS AND DISCUSSION: Recommend to continue the current management and continue with monitoring and symptomatic treatment. Otherwise, at this time, I recommend continue the pain medications. Also recommend the patient to follow up with the [facility] as well. Further recommendations to follow. Advance diet. Once the patient is able to tolerate diet, the patient will be discharged and pain patch per Pain Management. MMODL / IJN: [id number] /
[2018-10-25] MEDS: DEXTROSE 5%-0.45% NACL 1,000 ML IV SCH ×3 (18:40→23:36)
[2018-10-25 20:28] LABS: Glucose,Whole Blood 91 mg/dL (75-99)
[2018-10-25] MEDS: MONTELUKAST 10 MG TAB PO SCH (20:48)
[2018-10-26] MEDS: ONDANSETRON 4 MG/2 ML VIAL IVP PRN ×2 (02:29→10:33)
[2018-10-26] MEDS: HYDROmorphone 0.5 MG/0.5 ML SYRINGE IVP PRN ×3 (02:30→10:33)
[2018-10-26] MEDS: DEXTROSE 5%-0.45% NACL 1,000 ML IV SCH (06:31)
[2018-10-26 07:01] LABS: Glucose,Whole Blood 92 mg/dL (75-99)
[2018-10-26 07:37] VITALS: BP 99/54; PULSE 65; RESP 16; TEMP 98.7
[2018-10-26] MEDS: PANTOPRAZOLE 40 MG/10 ML VIAL IV SCH (08:10)
[2018-10-26] MEDS: ENOXAPARIN 40 MG/0.4 ML SYRINGE SQ SCH (08:10)
[2018-10-26] MEDS: LORATADINE 10 MG TAB PO SCH (08:10)
[2018-10-26] MEDS: KETOROLAC 30 MG/ML 1 ML VIAL IVP PRN (08:11)
[2018-10-26] MEDS: Lipase/Protease/Amylase [Creon Dr 36,000 Units Capsule] PO SCH (08:12)
[2018-10-26 11:35] LABS: Glucose,Whole Blood 91 mg/dL (75-99)
[2018-10-26] MEDS ORDERED: MORPHINE SULFATE IR 15 MG TABLET PO PRN (12:01)
--- NOTE | 2018-10-26 14:49 | P.DS ---
Providers Date of admission: 10/26/18 08:15 Attending physician: Chandan Moe MD Primary care physician: [facility] Course: 43-year-old female was admitted and was being treated for Chronic pancreatitis and pain related to chronic pancreatitis. Patient lipase is essentially within normal limits and do not believe patient has acute pancreatitis. A painter and paperhanger apprentice evaluated the patient they recommended the fentanyl patch. Patient did not like it and patient wanted to be switched back to morphine pills. Patient was switched back to morphine oral. Initially he was told patient is not able to tolerate clear liquid diet but once I switched her to oral morphine discontinued Dilaudid and the fentanyl patch patient wanted to go home. My suspicion is extremely low for her chronic pancreatitis related pain patient appears to opiate dependence and narcotic seeking behavior. She shouldn't has some subjective to tenderness and she barely let me touch her belly. Although patient is really comfortable when I saw the patient. Provided counseling regarding excess opiate use. PHYSICAL EXAMINATION: GENERAL: The patient is alert and oriented x3, not in any acute distress. Well developed, well nourished. HEENT: Pupils are round and equally reacting to light. EOMI. No scleral icterus. No conjunctival pallor. Normocephalic, atraumatic. No pharyngeal erythema. No thyromegaly. CARDIOVASCULAR: S1 and S2 present. No murmurs, rubs, or gallops. PULMONARY: Chest is clear to auscultation, no wheezing or crackles. ABDOMEN: Soft, some subjective tenderness as mentioned above, nondistended, normoactive bowel sounds. No palpable organomegaly. MUSCULOSKELETAL: No joint swelling or deformity. EXTREMITIES: No cyanosis, clubbing, or pedal edema. NEUROLOGICAL: Gross neurological examination did not reveal any focal deficits. SKIN: No rashes. For other chronic medical problems hospitalization course please refer to H&P from Patient Condition at Discharge: Stable Plan - Discharge Summary Discharge Rx Participant: No New Discharge Prescriptions: No Action SUMAtriptan SUCCINATE [Imitrex] 100 mg PO DAILY PRN PRN Reason: Migraine Headache Omeprazole 20 mg PO BID Ondansetron [Zofran ODT] 8 mg PO Q8H PRN PRN Reason: Nausea Loratadine 10 mg PO DAILY Montelukast Sodium [Singulair] 10 mg PO HS Morphine Sulfate ER [Ms Contin] 30 mg PO Q8H Morphine Sulfate Ir [MSIR] 15 mg PO BID PRN PRN Reason: Breakthrough Pain Lipase/Protease/Amylase [Thor Ambrocio 36,000 Units Capsule] 36,000 units PO AC- TID Adalimumab [Humira] 40 mg SQ Q14D Discharge Medication List SUMAtriptan SUCCINATE [Imitrex] 100 mg PO DAILY PRN 06/07/16 [History] Omeprazole 20 mg PO BID 08/05/16 [History] Ondansetron [Zofran ODT] 8 mg PO Q8H PRN 08/18/16 [History] Loratadine 10 mg PO DAILY 09/14/16 [History] Montelukast Sodium [Singulair] 10 mg PO HS 09/14/16 [History] Morphine Sulfate ER [Ms Contin] 30 mg PO Q8H 09/14/16 [History] Morphine Sulfate Ir [MSIR] 15 mg PO BID PRN 09/14/16 [History] Lipase/Protease/Amylase [Thor Ambrocio 36,000 Units Capsule] 36,000 units PO AC-TID 08/25/18 [History] Adalimumab [Humira] 40 mg SQ Q14D 09/24/18 [History] Follow up Appointment(s)/Referral(s): Derek Dobbins MD [Primary Care Provider] - 3 Days Patient Instructions/Handouts: Pancreatitis (DC) Discharge Disposition: HOME SELF-CARE
[2018-10-26] MEDS ORDERED: MORPHINE SULFATE ER 30 MG TABLET PO SCH (16:00)
== END 2018-10-26 14:01 | disposition home or self-care (01) | DRG 439 ==
LOC: EC 15:21 → 1SOBS 19:30 → OBSVTOIN 10-26 08:15
PROVIDERS: ADMIT Internal Medicine; ATTEND Internal Medicine
DX: K86.1 Other chronic pancreatitis (principal); E44.0 Moderate protein-calorie malnutrition; F11.20 Opioid dependence, uncomplicated; K50.90 Crohn's disease, unspecified, without complications; G62.9 Polyneuropathy, unspecified; G89.4 Chronic pain syndrome; K21.0 Gastro-esophageal reflux disease with esophagitis; K57.90 Diverticulosis of intestine, part unspecified, without perforation or abscess without bleeding; M06.9 Rheumatoid arthritis, unspecified; M19.90 Unspecified osteoarthritis, unspecified site; Z76.5 Malingerer [conscious simulation]; Z82.49 Family history of ischemic heart disease and other diseases of the circulatory system; Z87.440 Personal history of urinary (tract) infections; R13.10 Dysphagia, unspecified; Z87.11 Personal history of peptic ulcer disease; Z86.718 Personal history of other venous thrombosis and embolism; H26.9 Unspecified cataract; Z90.49 Acquired absence of other specified parts of digestive tract; Z88.8 Allergy status to other drugs, medicaments and biological substances; Z79.899 Other long term (current) drug therapy
CPT/HCPCS: 36415; 74018; 80048; 80053; 81001; 82150; 83690; 85025; 85652; 85730; 86140; 93005; 96361; 96374; 96375; 99285

== ENCOUNTER 2018-11-16 01:04 | Emergency (ER) | payer OTHER ==
[2018-11-16] MEDS ORDERED: SODIUM CHLORIDE 0.9% 1,000 ML IV STA (01:10)
[2018-11-16] MEDS ORDERED: MORPHINE SULFATE 4 MG/ML SYRINGE IV STA (01:10)
[2018-11-16] MEDS ORDERED: ONDANSETRON 4 MG/2 ML VIAL IVP STA (01:10)
--- NOTE | 2018-11-16 01:31 | ED ---
Abdominal Pain HPI - General Chief Complaint: Abdominal Pain Stated Complaint: Abdominal Pain Time Seen by Provider: 11/16/18 01:10 Source: patient, RN notes reviewed, old records reviewed Mode of arrival: ambulatory Limitations: no limitations - History of Present Illness Initial Comments: This is a 43-year-old female the ER for evaluation. Patient's unknown patient hospital in emergency room significant pain. Patient follows up at [facility]. Patient states she's having a flare mild nausea no vomiting, severe pain. No fevers. No diarrhea. No other symptoms MD Complaint: abdominal pain -: hour(s) Location: diffuse, periumbilical, epigastric, suprapubic Radiation: RUQ, epigastric Migration to: no migration Severity: moderate Severity scale (1-10): 6 Quality: stabbing Consistency: intermittent Improves With: nothing Worsens With: nothing Associated Symptoms: nausea, vomiting - Related Data Home Medications Medication Instructions Recorded Confirmed SUMAtriptan SUCCINATE [Imitrex] 100 mg PO DAILY PRN 06/07/16 10/23/18 Omeprazole 20 mg PO BID 08/05/16 10/23/18 Ondansetron [Zofran ODT] 8 mg PO Q8H PRN 08/18/16 10/23/18 Loratadine 10 mg PO DAILY 09/14/16 10/23/18 Montelukast Sodium [Singulair] 10 mg PO HS 09/14/16 10/23/18 Morphine Sulfate ER [Ms Contin] 30 mg PO Q8H 09/14/16 10/23/18 Morphine Sulfate Ir [MSIR] 15 mg PO BID PRN 09/14/16 10/23/18 Lipase/Protease/Amylase [Thor Ambrocio 36,000 units PO AC-TID 08/25/18 10/23/18 36,000 Units Capsule] Adalimumab [Humira] 40 mg SQ Q14D 09/24/18 10/23/18 Allergies Allergy/AdvReac Type Severity Reaction Status Date / Time metoclopramide [From Reglan] AdvReac Intermediate Twitching Verified 11/16/18 01:12 Review of Systems ROS Statement: Those systems with pertinent positive or pertinent negative responses have been documented in the HPI. ROS Other: All systems not noted in ROS Statement are negative. Past Medical History Past Medical History: Eye Disorder, GERD/Reflux, GI Bleed, Neurologic Disorder, Osteoarthritis (OA), Rheumatoid Arthritis (RA) Additional Past Medical History / Comment(s): Chronic pancreatitis, Crohn's disease, chronic esophagitis, blood in stool, diverticulosis, hx ulcers, frequent UTI'S, hx blood clots in left arm pt states d/t picc lines, hx anemia with numerous transfusions, hx kidney failure from dehydration 12 yrs ago, neuropathy, cataracts. History of Any Multi-Drug Resistant Organisms: None Reported Past Surgical History: Cholecystectomy Additional Past Surgical History / Comment(s): colonsocopies, EGDs Past Anesthesia/Blood Transfusion Reactions: No Reported Reaction Additional Past Anesthesia/Blood Transfusion Reaction / Comment(s): Has had about 13 blood transfusions-no reactions. Past Psychological History: No Psychological Hx Reported Smoking Status: Never smoker Past Alcohol Use History: None Reported Past Drug Use History: None Reported - Past Family History Father Family Medical History: Myocardial Infarction ([place]) Additional Family Medical History / Comment(s): Father had drug abuse problem. He of a [place] at the age of 61 yrs. Mother Family Medical History: Hypertension Additional Family Medical History / Comment(s): Mother is living. General Exam Limitations: no limitations General appearance: alert, in no apparent distress Head exam: Present: atraumatic, normocephalic, normal inspection Eye exam: Present: normal appearance, PERRL, EOMI. Absent: scleral icterus, conjunctival injection, periorbital swelling ENT exam: Present: normal exam, mucous membranes moist Neck exam: Present: normal inspection. Absent: tenderness, meningismus, lymphadenopathy Respiratory exam: Present: normal lung sounds bilaterally. Absent: respiratory distress, wheezes, rales, rhonchi, stridor Cardiovascular Exam: Present: regular rate, normal rhythm, normal heart sounds. Absent: systolic murmur, diastolic murmur, rubs, gallop, clicks GI/Abdominal exam: Present: soft, normal bowel sounds. Absent: distended, tenderness, guarding, rebound, rigid Extremities exam: Present: normal inspection, full ROM, normal capillary refill. Absent: tenderness, pedal edema, joint swelling, calf tenderness Back exam: Present: normal inspection Neurological exam: Present: alert, oriented X3, CN II-XII intact Psychiatric exam: Present: normal affect, normal mood Skin exam: Present: warm, dry, intact, normal color. Absent: rash Course Vital Signs 11/16/18 11/16/18 01:09 02:13 Temperature 98.4 F Pulse Rate 90 68 Respiratory 16 18 Rate Blood Pressure 97/71 104/78 O2 Sat by Pulse 97 97 Oximetry - Reevaluation(s) Reevaluation #1: 11/16/18 02:59 Medical records reviewed, patient won't this emergency room Reevaluation #2: 11/16/18 02:59 Patient's pain is controlled Medical Decision Making - Medical Decision Making 43 female the ER for evaluation, chronic pain, chronic pancreatitis. Patient pain is well-controlled, labwork is normal patient can be discharged home - Lab Data Result diagrams: 11/16/18 02:12 11/16/18 02:12 Lab Results 11/16/18 11/16/18 11/16/18 Range/Units 02:01 02:12 02:12 WBC 9.8 (3.8-10.6) k/uL RBC 5.01 (3.80-5.40) m/uL Hgb 14.7 D (11.4-16.0) gm/dL Hct 46.3 H (34.0-46.0) % MCV 92.5 (80.0-100.0) fL MCH 29.4 (25.0-35.0) pg MCHC 31.8 (31.0-37.0) g/dL RDW 13.7 (11.5-15.5) % Plt Count 298 (150-450) k/uL Neutrophils % 75 % Lymphocytes % 16 % Monocytes % 6 % Eosinophils % 1 % Basophils % 0 % Neutrophils # 7.4 (1.3-7.7) k/uL Lymphocytes # 1.6 (1.0-4.8) k/uL Monocytes # 0.6 (0-1.0) k/uL Eosinophils # 0.1 (0-0.7) k/uL Basophils # 0.0 (0-0.2) k/uL Sodium 138 (137-145) mmol/L Potassium 3.9 (3.5-5.1) mmol/L Chloride 105 (98-107) mmol/L Carbon Dioxide 22 (22-30) mmol/L Anion Gap 11 mmol/L BUN 11 (7-17) mg/dL Creatinine 0.60 (0.52-1.04) mg/dL Est GFR (CKD-EPI)AfAm >90 (>60 ml/min/1.73 sqM) Est GFR (CKD-EPI)NonAf >90 (>60 ml/min/1.73 sqM) Glucose 93 (74-99) mg/dL Calcium 10.3 H (8.4-10.2) mg/dL Phosphorus 3.5 (2.5-4.5) mg/dL Magnesium 1.5 L (1.6-2.3) mg/dL Total Bilirubin 0.7 (0.2-1.3) mg/dL AST 18 (14-36) U/L ALT 12 (9-52) U/L Alkaline Phosphatase 78 (38-126) U/L Creatine Kinase 34 (30-135) U/L Total Protein 7.4 (6.3-8.2) g/dL Albumin 4.6 (3.5-5.0) g/dL Amylase 68 (30-110) U/L Lipase 109 (23-300) U/L Urine Color Yellow Urine Appearance Cloudy H (Clear) Urine pH 6.0 (5.0-8.0) Ur Specific Emerson 1.032 (1.001-1.035) Urine Protein 1+ H (Negative) Urine Glucose (UA) Negative (Negative) Urine Ketones 4+ H (Negative) Urine Blood Moderate H (Negative) Urine Nitrite Negative (Negative) Urine Bilirubin 1+ H (Negative) Urine Urobilinogen 3.0 (<2.0) mg/dL Ur Leukocyte Esterase Small H (Negative) Urine RBC 6 H (0-5) /hpf Urine WBC 7 H (0-5) /hpf Ur Squamous Epith Cells 23 H (0-4) /hpf Urine Bacteria Rare H (None) /hpf Urine Mucus Many H (None) /hpf Disposition Clinical Impression: Intractable abdominal pain, Intractable nausea and vomiting, Acute on chronic pancreatitis Disposition: HOME SELF-CARE Condition: Good Instructions (If sedation given, give patient instructions): Abdominal Pain (ED) Is patient prescribed a controlled substance at d/c from ED?: No Referrals: Derek Dobbins MD [Primary Care Provider] - 1-2 days
[2018-11-16 02:39] LABS: Basophils % (A) 0 %; Eosinophils # (A) 0.1 k/uL (0-0.7); Eosinophils % (A) 1 %; HCT 46.3 % (34.0-46.0); Lymphocytes # (A) 1.6 k/uL (1.0-4.8); Lymphocytes % (A) 16 %; MCH 29.4 pg (25.0-35.0); MCHC 31.8 g/dL (31.0-37.0); MCV 92.5 fL (80.0-100.0); Mean Platelet Volume 6.9; Monocytes # (A) 0.6 k/uL (0-1.0); Monocytes % (A) 6 %; Neutrophils # (A) 7.4 k/uL (1.3-7.7); Neutrophils % (A) 75 %; Platelet Count 298 k/uL (150-450); RBC 5.01 m/uL (3.80-5.40); RDW 13.7 % (11.5-15.5); WBC 9.8 k/uL (3.8-10.6)
[2018-11-16 02:43] LABS: Appearance,Urine Cloudy (Clear); Bacteria,Urine Rare /hpf; Bilirubin,Urine 1+ (Negative); Blood,Urine Moderate (Negative); Color,Urine Yellow; Glucose,Urine (UA) Negative (Negative); Ketones,Urine 4+ (Negative); Leukocyte Esterase,Urine Small (Negative); Mucus,Urine Many /hpf; Nitrite,Urine Negative (Negative); Protein,Urine 1+ (Negative); RBC,Urine 6 /hpf (0-5); Specific Gravity,Urine 1.032 (1.001-1.035); Squamous Epithelial Cell,Urine 23 /hpf (0-4); WBC,Urine 7 /hpf (0-5)
[2018-11-16 02:44] LABS: HGB 14.7 gm/dL (11.4-16.0)
[2018-11-16 02:55] LABS: ALT 12 U/L (9-52); AST 18 U/L (14-36); Albumin 4.6 g/dL (3.5-5.0); Alkaline Phosphatase 78 U/L (38-126); Amylase 68 U/L (30-110); Anion Gap 11 mmol/L; Blood Urea Nitrogen 11 mg/dL (7-17); Calcium 10.3 mg/dL (8.4-10.2); Carbon Dioxide 22 mmol/L (22-30); Chloride 105 mmol/L (98-107); Creatine Kinase 34 U/L (30-135); Glucose 93 mg/dL (74-99); Lipase 109 U/L (23-300); Magnesium 1.5 mg/dL (1.6-2.3); Phosphorus 3.5 mg/dL (2.5-4.5); Potassium 3.9 mmol/L (3.5-5.1); Sodium 138 mmol/L (137-145); Total Bilirubin 0.7 mg/dL (0.2-1.3); Total Protein 7.4 g/dL (6.3-8.2)
[2018-11-16] MEDS ORDERED: HYDROmorphone 0.5 MG/0.5 ML SYRINGE IVP STA (02:58)
[2018-11-16 04:33] VITALS: BP 107/83; PULSE 74; RESP 18; TEMP 97.4
== END 2018-11-16 04:40 | disposition home or self-care (01) ==
LOC: EC 01:04
DX: K85.90 Acute pancreatitis without necrosis or infection, unspecified (principal); K21.9 Gastro-esophageal reflux disease without esophagitis; M19.90 Unspecified osteoarthritis, unspecified site; M06.9 Rheumatoid arthritis, unspecified; K50.90 Crohn's disease, unspecified, without complications; G62.9 Polyneuropathy, unspecified; Z87.19 Personal history of other diseases of the digestive system; Z90.49 Acquired absence of other specified parts of digestive tract; Z98.890 Other specified postprocedural states; Z79.891 Long term (current) use of opiate analgesic; Z79.899 Other long term (current) drug therapy; Z88.8 Allergy status to other drugs, medicaments and biological substances
CPT/HCPCS: 36415; 80053; 82150; 82550; 83690; 83735; 84100; 85025; 81001; 87086; 99284; 96374; 96375 ×2; 96361 ×2; J2270; J2405; J1170

== ENCOUNTER 2018-11-16 13:47 | Emergency (ER) | payer OTHER ==
[2018-11-16 14:56] VITALS: RESP 18
[2018-11-16] MEDS ORDERED: SODIUM CHLORIDE 0.9% 1,000 ML IV STA (15:31)
[2018-11-16] MEDS ORDERED: PANTOPRAZOLE 40 MG/10 ML VIAL IVP STA (15:31)
[2018-11-16] MEDS ORDERED: ONDANSETRON 4 MG/2 ML VIAL IVP STA ×2 (15:31→17:30)
[2018-11-16] MEDS ORDERED: HYDROmorphone 1 MG/ML 1 ML SYRINGE IVP STA ×2 (15:39→17:30)
--- NOTE | 2018-11-16 15:56 | ED ---
Abdominal Pain HPI - General Source: patient, RN notes reviewed, old records reviewed Mode of arrival: ambulatory Limitations: no limitations <Ary White - Last Filed: 11/16/18 16:59> <Corby Villarreal - Last Filed: 11/16/18 18:02> - General Chief Complaint: Abdominal Pain Stated Complaint: pancreatitis Time Seen by Provider: 11/16/18 14:54 - History of Present Illness Initial Comments: Patient is a well known Patient to the emergency department today for complaints of chronic abdominal nausea and vomiting. She wishes a history of chronic pancreatitis. Patient reports she's had some episodes of vomiting. She's had a flare for the past 2 days she seen early in the emergency department today and was discharged home after seeing fluids. Patient denies any recent fever, chills, shortness of breath, chest pain, back pain, abdominal pain, nausea vomiting, numbness or tingling, dysuria or hematuria, constipation or diarrhea, headaches or visual changes, or any other current symptoms (Ary White) - Related Data Home Medications Medication Instructions Recorded Confirmed SUMAtriptan SUCCINATE [Imitrex] 100 mg PO DAILY PRN 06/07/16 11/16/18 Omeprazole 20 mg PO BID 08/05/16 11/16/18 Ondansetron [Zofran ODT] 8 mg PO Q8H PRN 08/18/16 11/16/18 Loratadine 10 mg PO DAILY 09/14/16 11/16/18 Montelukast Sodium [Singulair] 10 mg PO HS 09/14/16 11/16/18 Morphine Sulfate ER [Ms Contin] 30 mg PO Q8H 09/14/16 11/16/18 Morphine Sulfate Ir [MSIR] 15 mg PO BID PRN 09/14/16 11/16/18 Lipase/Protease/Amylase [Creon Dr 36,000 units PO AC-TID 08/25/18 11/16/18 36,000 Units Capsule] Adalimumab [Humira] 40 mg SQ Q14D 09/24/18 11/16/18 Previous Rx's Medication Instructions Recorded Ondansetron Odt [Zofran Odt] 4 mg PO Q8HR PRN #12 tab 11/16/18 Allergies Allergy/AdvReac Type Severity Reaction Status Date / Time metoclopramide [From Reglan] AdvReac Intermediate Twitching Verified 11/16/18 15:23 Review of Systems ROS Other: All systems not noted in ROS Statement are negative. <Ary White - Last Filed: 11/16/18 16:59> ROS Other: All systems not noted in ROS Statement are negative. <PhilCorby Mirta - Last Filed: 11/16/18 18:02> ROS Statement: Those systems with pertinent positive or pertinent negative responses have been documented in the HPI. Past Medical History Past Medical History: Eye Disorder, GERD/Reflux, GI Bleed, Neurologic Disorder, Osteoarthritis (OA), Rheumatoid Arthritis (RA) Additional Past Medical History / Comment(s): Chronic pancreatitis, Crohn's disease, chronic esophagitis, blood in stool, diverticulosis, hx ulcers, frequent UTI'S, hx blood clots in left arm pt states d/t picc lines, hx anemia with numerous transfusions, hx kidney failure from dehydration 12 yrs ago, neuropathy, cataracts. History of Any Multi-Drug Resistant Organisms: None Reported Past Surgical History: Cholecystectomy Additional Past Surgical History / Comment(s): colonsocopies, EGDs Past Anesthesia/Blood Transfusion Reactions: No Reported Reaction Additional Past Anesthesia/Blood Transfusion Reaction / Comment(s): Has had about 13 blood transfusions-no reactions. Past Psychological History: No Psychological Hx Reported Smoking Status: Never smoker Past Alcohol Use History: None Reported Past Drug Use History: None Reported - Past Family History Father Family Medical History: Myocardial Infarction ([place]) Additional Family Medical History / Comment(s): Father had drug abuse problem. He of a [place] at the age of 61 yrs. Mother Family Medical History: Hypertension Additional Family Medical History / Comment(s): Mother is living. <Ary White - Last Filed: 11/16/18 16:59> General Exam Limitations: no limitations General appearance: alert, in no apparent distress Head exam: Present: atraumatic, normocephalic, normal inspection Eye exam: Present: normal appearance, PERRL, EOMI. Absent: scleral icterus, conjunctival injection, periorbital swelling ENT exam: Present: normal exam, mucous membranes moist Neck exam: Present: normal inspection. Absent: tenderness, meningismus, lymphadenopathy Respiratory exam: Present: normal lung sounds bilaterally. Absent: respiratory distress, wheezes, rales, rhonchi, stridor Cardiovascular Exam: Present: regular rate, normal rhythm, normal heart sounds. Absent: systolic murmur, diastolic murmur, rubs, gallop, clicks GI/Abdominal exam: Present: soft, tenderness (Implant of diffuse tenderness.), normal bowel sounds. Absent: distended, guarding, rebound, rigid Extremities exam: Present: normal inspection, full ROM, normal capillary refill. Absent: tenderness, pedal edema, joint swelling, calf tenderness Back exam: Present: normal inspection Neurological exam: Present: alert, oriented X3, CN II-XII intact <Ary White - Last Filed: 11/16/18 16:59> Course Vital Signs 11/16/18 11/16/18 14:53 17:23 Temperature 98.6 F Pulse Rate 94 92 Respiratory 18 18 Rate Blood Pressure 110/71 133/93 O2 Sat by Pulse 99 96 Oximetry Medical Decision Making - Lab Data Result diagrams: 11/16/18 15:15 11/16/18 15:15 <Ary White - Last Filed: 11/16/18 16:59> - Lab Data Result diagrams: 11/16/18 15:15 11/16/18 15:15 <Corby Villarreal - Last Filed: 11/16/18 18:02> - Medical Decision Making Patient's 43-year-old female since ED today complaining of face abdominal pain concern for chronic pancreatitis flare. She's had multiple episodes of vomiting. Patient has had history of vomiting. She stated emergency department earlier today. (Ary White) Patient is sent out to me by previous shift physician bindery assistant Romana White. Patient has a history of chronic abdominal pain. She has seen specialists at [facility]. She was told that she has chronic pancreatitis. 3 of chronic abdominal pain. She presents today with acute or chronic abdominal pain. He was seen earlier today and discharged. She states she is back because she can't seem to get her symptoms under control. Patient had normal labs and workup performed by physician bindery assistant. Patient was evaluated by myself and was agreeable for discharge. Patient is well-appearing at bedside. She is tolerating by mouth. Patient given IV analgesia and antinausea medications. Patient given refill prescription for her Zofran when necessary nausea to take home. Patient advised follow-up with GI specialist at [facility]. Patient understandable and agreeable to disposition. (Corby Villarreal) - Lab Data Lab Results 11/16/18 11/16/18 11/16/18 Range/Units 15:15 15:15 15:15 WBC 7.3 (3.8-10.6) k/uL RBC 4.68 (3.80-5.40) m/uL Hgb 13.7 (11.4-16.0) gm/dL Hct 42.8 (34.0-46.0) % MCV 91.4 (80.0-100.0) fL MCH 29.2 (25.0-35.0) pg MCHC 32.0 (31.0-37.0) g/dL RDW 14.7 (11.5-15.5) % Plt Count 277 (150-450) k/uL Neutrophils % 62 % Lymphocytes % 27 % Monocytes % 7 % Eosinophils % 1 % Basophils % 0 % Neutrophils # 4.6 (1.3-7.7) k/uL Lymphocytes # 2.0 (1.0-4.8) k/uL Monocytes # 0.5 (0-1.0) k/uL Eosinophils # 0.1 (0-0.7) k/uL Basophils # 0.0 (0-0.2) k/uL PT 10.7 (9.0-12.0) sec INR 1.0 (<1.2) APTT 25.6 (22.0-30.0) sec Sodium 139 (137-145) mmol/L Potassium 3.7 (3.5-5.1) mmol/L Chloride 106 (98-107) mmol/L Carbon Dioxide 25 (22-30) mmol/L Anion Gap 8 mmol/L BUN 9 (7-17) mg/dL Creatinine 0.60 (0.52-1.04) mg/dL Est GFR (CKD-EPI)AfAm >90 (>60 ml/min/1.73 sqM) Est GFR (CKD-EPI)NonAf >90 (>60 ml/min/1.73 sqM) Glucose 132 H (74-99) mg/dL Calcium 9.3 (8.4-10.2) mg/dL Total Bilirubin 0.8 (0.2-1.3) mg/dL AST 20 (14-36) U/L ALT 8 L (9-52) U/L Alkaline Phosphatase 62 (38-126) U/L Total Protein 7.1 (6.3-8.2) g/dL Albumin 4.5 (3.5-5.0) g/dL Amylase 62 (30-110) U/L Lipase 96 (23-300) U/L Urine Color Urine Appearance (Clear) Urine pH (5.0-8.0) Ur Specific Dora (1.001-1.035) Urine Protein (Negative) Urine Glucose (UA) (Negative) Urine Ketones (Negative) Urine Blood (Negative) Urine Nitrite (Negative) Urine Bilirubin (Negative) Urine Urobilinogen (<2.0) mg/dL Ur Leukocyte Esterase (Negative) Urine RBC (0-5) /hpf Urine WBC (0-5) /hpf Ur Squamous Epith Cells (0-4) /hpf Urine Bacteria (None) /hpf Urine Mucus (None) /hpf 11/16/18 Range/Units 15:15 WBC (3.8-10.6) k/uL RBC (3.80-5.40) m/uL Hgb (11.4-16.0) gm/dL Hct (34.0-46.0) % MCV (80.0-100.0) fL MCH (25.0-35.0) pg MCHC (31.0-37.0) g/dL RDW (11.5-15.5) % Plt Count (150-450) k/uL Neutrophils % % Lymphocytes % % Monocytes % % Eosinophils % % Basophils % % Neutrophils # (1.3-7.7) k/uL Lymphocytes # (1.0-4.8) k/uL Monocytes # (0-1.0) k/uL Eosinophils # (0-0.7) k/uL Basophils # (0-0.2) k/uL PT (9.0-12.0) sec INR (<1.2) APTT (22.0-30.0) sec Sodium (137-145) mmol/L Potassium (3.5-5.1) mmol/L Chloride (98-107) mmol/L Carbon Dioxide (22-30) mmol/L Anion Gap mmol/L BUN (7-17) mg/dL Creatinine (0.52-1.04) mg/dL Est GFR (CKD-EPI)AfAm (>60 ml/min/1.73 sqM) Est GFR (CKD-EPI)NonAf (>60 ml/min/1.73 sqM) Glucose (74-99) mg/dL Calcium (8.4-10.2) mg/dL Total Bilirubin (0.2-1.3) mg/dL AST (14-36) U/L ALT (9-52) U/L Alkaline Phosphatase (38-126) U/L Total Protein (6.3-8.2) g/dL Albumin (3.5-5.0) g/dL Amylase (30-110) U/L Lipase (23-300) U/L Urine Color Light Yellow Urine Appearance Cloudy H (Clear) Urine pH 6.0 (5.0-8.0) Ur Specific Dora 1.003 (1.001-1.035) Urine Protein Negative (Negative) Urine Glucose (UA) Negative (Negative) Urine Ketones Negative (Negative) Urine Blood Small H (Negative) Urine Nitrite Negative (Negative) Urine Bilirubin Negative (Negative) Urine Urobilinogen <2.0 (<2.0) mg/dL Ur Leukocyte Esterase Negative (Negative) Urine RBC 1 (0-5) /hpf Urine WBC 2 (0-5) /hpf Ur Squamous Epith Cells 4 (0-4) /hpf Urine Bacteria Rare H (None) /hpf Urine Mucus Rare H (None) /hpf Disposition <Ary White - Last Filed: 11/16/18 16:59> Is patient prescribed a controlled substance at d/c from ED?: No Time of Disposition: 18:02 <Corby Villarreal - Last Filed: 11/16/18 18:02> Clinical Impression: Abdominal pain Disposition: HOME SELF-CARE Condition: Good Instructions (If sedation given, give patient instructions): Abdominal Pain (ED) Prescriptions: Ondansetron Odt [Zofran Odt] 4 mg PO Q8HR PRN #12 tab PRN Reason: Nausea Referrals: Derek Dobbins MD [Primary Care Provider] - 1-2 days
[2018-11-16 15:59] LABS: Basophils % (A) 0 %; Eosinophils # (A) 0.1 k/uL (0-0.7); Eosinophils % (A) 1 %; HCT 42.8 % (34.0-46.0); HGB 13.7 gm/dL (11.4-16.0); Lymphocytes % (A) 27 %; MCH 29.2 pg (25.0-35.0); MCV 91.4 fL (80.0-100.0); Monocytes # (A) 0.5 k/uL (0-1.0); Monocytes % (A) 7 %; Neutrophils # (A) 4.6 k/uL (1.3-7.7); Neutrophils % (A) 62 %; Platelet Count 277 k/uL (150-450); RBC 4.68 m/uL (3.80-5.40); RDW 14.7 % (11.5-15.5); WBC 7.3 k/uL (3.8-10.6)
[2018-11-16 16:01] LABS: Appearance,Urine Cloudy (Clear); Bacteria,Urine Rare /hpf; Bilirubin,Urine Negative (Negative); Blood,Urine Small (Negative); Color,Urine Light Yellow; Glucose,Urine (UA) Negative (Negative); Ketones,Urine Negative (Negative); Leukocyte Esterase,Urine Negative (Negative); Mucus,Urine Rare /hpf; Nitrite,Urine Negative (Negative); Protein,Urine Negative (Negative); RBC,Urine 1 /hpf (0-5); Specific Gravity,Urine 1.003 (1.001-1.035); Squamous Epithelial Cell,Urine 4 /hpf (0-4); Urobilinogen,Urine <2.0 mg/dL (<2.0); WBC,Urine 2 /hpf (0-5)
[2018-11-16 16:12] LABS: ALT 8 U/L (9-52); AST 20 U/L (14-36); Albumin 4.5 g/dL (3.5-5.0); Alkaline Phosphatase 62 U/L (38-126); Amylase 62 U/L (30-110); Anion Gap 8 mmol/L; Blood Urea Nitrogen 9 mg/dL (7-17); Calcium 9.3 mg/dL (8.4-10.2); Carbon Dioxide 25 mmol/L (22-30); Chloride 106 mmol/L (98-107); Glucose 132 mg/dL (74-99); Lipase 96 U/L (23-300); Potassium 3.7 mmol/L (3.5-5.1); Sodium 139 mmol/L (137-145); Total Bilirubin 0.8 mg/dL (0.2-1.3); Total Protein 7.1 g/dL (6.3-8.2)
[2018-11-16 16:22] LABS: Partial Thromboplastin Time 25.6 sec (22.0-30.0); Prothrombin Time 10.7 sec (9.0-12.0)
[2018-11-16 18:56] VITALS: BP 105/64; PULSE 74; TEMP 98.2
== END 2018-11-16 18:45 | disposition home or self-care (01) ==
LOC: EC 13:47
DX: R10.84 Generalized abdominal pain (principal); G89.29 Other chronic pain; R11.2 Nausea with vomiting, unspecified; K86.1 Other chronic pancreatitis; K21.9 Gastro-esophageal reflux disease without esophagitis; M19.90 Unspecified osteoarthritis, unspecified site; M06.9 Rheumatoid arthritis, unspecified; K50.90 Crohn's disease, unspecified, without complications; Z87.19 Personal history of other diseases of the digestive system; Z90.49 Acquired absence of other specified parts of digestive tract; Z98.890 Other specified postprocedural states; Z79.891 Long term (current) use of opiate analgesic; Z79.899 Other long term (current) drug therapy; Z88.8 Allergy status to other drugs, medicaments and biological substances
CPT/HCPCS: 36415; 80053; 82150; 83690; 85025; 85610; 85730; 81001; 99284; 96374; 96375 ×2; 96376 ×2; 96361 ×3; J2405; J1170; C9113

== ENCOUNTER → 2018-12-07 | Outpatient (CLI) | payer OTHER ==
--- NOTE | 2018-12-11 10:20 | MM ---
Reason for exam: follow-up at short interval from prior study. Last mammogram was performed 7 months ago. History: Took hormonal contraceptives beginning at age 17. Physical Findings: Nurse Summary: 0.5cm nodule in the right breast at 9 o'clock (nurse mj). [facility] Diagnostic Mammo LT w CAD CC and MLO view(s) were taken of the left breast. Prior study comparison: May 12, 2018, bilateral MG diagnostic mammo w CAD GAYLE. The breast tissue is extremely dense which could obscure a lesion on mammography. No significant new findings when compared with previous films. These results were verbally communicated with the patient and result sheet given to the patient on 12/07/18. ASSESSMENT: Incomplete: need additional imaging evaluation, BI-RAD 0 RECOMMENDATION: Ultrasound of both breasts. (Right limited ultrasound for palpable)
--- NOTE | 2018-12-11 10:24 | USB ---
Reason for exam: additional evaluation requested from abnormal screening. History: Took hormonal contraceptives beginning at age 17. US Breast Limited BILAT Right limited breast ultrasound including focal area of concern, retroareolar and axilla demonstrates a 0.4 x 0.2 x 0.3cm benign oil cyst at the palpable at 9 o'clock. Scanned 9-12 o'clock. Left complete breast ultrasound includes all four quadrants, the retroareolar region and axilla. Finding demonstrates a 0.5 x 0.3 x 0.6cm mixed lesion at 1 o'clock probable cyst cluster, a 0.3 x 0.3 x 0.3cm lesion too small to characterize at 3 o'clock probable debris filled cyst and a 0.7 x 0.4 x 0.6cm oval, hypoechoic lesion at 6 o'clock with posterior thru transmission, 6 month follow up recommended. These results were verbally communicated with the patient and result sheet given to the patient on 12/07/18. ASSESSMENT: Probably benign, BI-RAD 3 RECOMMENDATION: Follow-up diagnostic mammogram of both breasts in 6 months. (for annual exam) Ultrasound of the left breast in 6 months. (6 o'clock)
== END | disposition home or self-care (01) ==
LOC: RADMAMWWP 14:11
PROVIDERS: ATTEND Pediatrics
DX: R92.8 Other abnormal and inconclusive findings on diagnostic imaging of breast (principal)
CPT/HCPCS: 77065

== ENCOUNTER 2018-12-21 08:37 | Emergency (ER) | payer OTHER ==
[2018-12-21 08:48] VITALS: BP 111/77; PULSE 87; RESP 16; TEMP 98.3
[2018-12-21] MEDS ORDERED: SODIUM CHLORIDE 0.9% 500 ML 500 ML IV STA (09:44)
[2018-12-21] MEDS ORDERED: METOCLOPRAMIDE 5 MG/ML 2 ML VIAL IVP STA (09:44)
[2018-12-21] MEDS ORDERED: SODIUM CHLORIDE 0.9% 1,000 ML IV STA (09:44)
[2018-12-21] MEDS ORDERED: ONDANSETRON 4 MG/2 ML VIAL IVP STA (10:02)
[2018-12-21] MEDS ORDERED: KETOROLAC 30 MG/ML 1 ML VIAL IVP STA (10:02)
[2018-12-21 10:18] LABS: Basophils % (A) 0 %; Eosinophils # (A) 0.1 k/uL (0-0.7); Eosinophils % (A) 1 %; HGB 15.2 gm/dL (11.4-16.0); Lymphocytes # (A) 1.8 k/uL (1.0-4.8); Lymphocytes % (A) 25 %; MCH 30.5 pg (25.0-35.0); MCV 92.4 fL (80.0-100.0); Mean Platelet Volume 6.8; Monocytes # (A) 0.4 k/uL (0-1.0); Monocytes % (A) 6 %; Neutrophils # (A) 4.5 k/uL (1.3-7.7); Neutrophils % (A) 65 %; Platelet Count 258 k/uL (150-450); RBC 4.98 m/uL (3.80-5.40); RDW 13.7 % (11.5-15.5)
[2018-12-21 10:25] LABS: Appearance,Urine Cloudy (Clear); Bilirubin,Urine Negative (Negative); Blood,Urine Moderate (Negative); Color,Urine Yellow; Glucose,Urine (UA) Negative (Negative); Ketones,Urine 2+ (Negative); Leukocyte Esterase,Urine Small (Negative); Mucus,Urine Rare /hpf; Nitrite,Urine Negative (Negative); Protein,Urine Trace (Negative); RBC,Urine 8 /hpf (0-5); Specific Gravity,Urine 1.018 (1.001-1.035); Squamous Epithelial Cell,Urine 5 /hpf (0-4); WBC,Urine 6 /hpf (0-5)
[2018-12-21 10:27] LABS: African American GFR (CKD) >90 (>60 ml/min/1.73 sqM); Amylase 76 U/L (30-110); Anion Gap 12 mmol/L; Blood Urea Nitrogen 13 mg/dL (7-17); Calcium 9.8 mg/dL (8.4-10.2); Carbon Dioxide 19 mmol/L (22-30); Chloride 112 mmol/L (98-107); Glucose 90 mg/dL (74-99); Lipase 146 U/L (23-300); Sodium 143 mmol/L (137-145); Total Bilirubin 1.2 mg/dL (0.2-1.3)
--- NOTE | 2018-12-21 10:32 | XR ---
EXAMINATION TYPE: XR KUB DATE OF EXAM: 12/21/2018 COMPARISON: 12/20/2018 HISTORY: Nausea and vomiting TECHNIQUE: One view abdominal series FINDINGS: The osseous structures are intact. The bowel gas pattern is nonspecific. Lung bases are clear. Surg ical clips right upper quadrant. Hypertrophic change of the acetabulum can be associated with femoral acetabular impingement. IMPRESSION: 1. Nonspecific abdomen. Paucity of bowel gas can be seen with enteritis or ileus.
[2018-12-21 10:35] LABS: ALT 11 U/L (9-52); AST 24 U/L (14-36); Albumin 4.8 g/dL (3.5-5.0); Alkaline Phosphatase 65 U/L (38-126); Potassium 5.4 mmol/L (3.5-5.1); Total Protein 7.8 g/dL (6.3-8.2)
--- NOTE | 2018-12-21 10:52 | ED ---
General Adult HPI - General Chief complaint: Abdominal Pain Stated complaint: PANCREATITIS FLARE Time Seen by Provider: 12/21/18 08:50 Source: patient, RN notes reviewed Mode of arrival: wheelchair Limitations: no limitations - History of Present Illness Initial comments: This is a 43-year-old female with a past medical history significant for chronic pancreatitis. Patient has chronic pain every day. Patient is on morphine at home. Patient comes in today because she states started vomiting and she is unable to keep the pain under control. Patient was here yesterday as well. Patient wants pain medication and particularly narcotics. Patient states she has Zofran at home. Patient states she hasn't appointment with the pain clinic but has yet to have an appointment. Patient denies any fever chills. Patient denies any new symptoms. Patient denies any chest pain difficulty breathing shortness of breath. - Related Data Home Medications Medication Instructions Recorded Confirmed SUMAtriptan SUCCINATE [Imitrex] 100 mg PO DAILY PRN 06/07/16 12/21/18 Omeprazole 20 mg PO BID 08/05/16 12/21/18 Ondansetron [Zofran ODT] 8 mg PO Q8H PRN 08/18/16 12/21/18 Loratadine 10 mg PO DAILY 09/14/16 12/21/18 Montelukast Sodium [Singulair] 10 mg PO HS 09/14/16 12/21/18 Morphine Sulfate ER [Ms Contin] 30 mg PO Q8H 09/14/16 12/21/18 Morphine Sulfate Ir [MSIR] 15 mg PO BID PRN 09/14/16 12/21/18 Lipase/Protease/Amylase [Thor Ambrocio 108,000 units PO AC-TID 08/25/18 12/21/18 36,000 Units Capsule] Adalimumab [Humira Crohn's] 40 mg SQ Q14D 12/20/18 12/21/18 Lipase/Protease/Amylase [Thor Ambrocio 36,000 units PO BID PRN 12/20/18 12/21/18 36,000 Units Capsule] Allergies Allergy/AdvReac Type Severity Reaction Status Date / Time metoclopramide [From Reglan] AdvReac Intermediate Twitching Verified 12/21/18 09:20 Review of Systems ROS Statement: Those systems with pertinent positive or pertinent negative responses have been documented in the HPI. ROS Other: All systems not noted in ROS Statement are negative. Past Medical History Past Medical History: Eye Disorder, GERD/Reflux, GI Bleed, Neurologic Disorder, Osteoarthritis (OA), Rheumatoid Arthritis (RA) Additional Past Medical History / Comment(s): Chronic pancreatitis, Crohn's disease, chronic esophagitis, blood in stool, diverticulosis, hx ulcers, frequent UTI'S, hx blood clots in left arm pt states d/t picc lines, hx anemia with numerous transfusions, hx kidney failure from dehydration 12 yrs ago, neuropathy, cataracts. History of Any Multi-Drug Resistant Organisms: None Reported Past Surgical History: Cholecystectomy Additional Past Surgical History / Comment(s): colonsocopies, EGDs Past Anesthesia/Blood Transfusion Reactions: No Reported Reaction Additional Past Anesthesia/Blood Transfusion Reaction / Comment(s): Has had about 13 blood transfusions-no reactions. Past Psychological History: No Psychological Hx Reported Smoking Status: Never smoker Past Alcohol Use History: None Reported Past Drug Use History: None Reported - Past Family History Father Family Medical History: Myocardial Infarction ([place]) Additional Family Medical History / Comment(s): Father had drug abuse problem. He of a [place] at the age of 61 yrs. Mother Family Medical History: Hypertension Additional Family Medical History / Comment(s): Mother is living. General Exam - General Exam Comments Initial Comments: GENERAL: Patient is well-developed and well-nourished. Patient is nontoxic and well- hydrated and is in mild distress. ENT: Neck is soft and supple. No significant lymphadenopathy is noted. Oropharynx is clear. Moist mucous membranes. Neck has full range of motion without eliciting any pain. EYES: The sclera were anicteric and conjunctiva were pink and moist. Extraocular movements were intact and pupils were equal round and reactive to light. Eyelids were unremarkable. PULMONARY: Unlabored respirations. Good breath sounds bilaterally. No audible rales rhonchi or wheezing was noted. CARDIOVASCULAR: There is a regular rate and rhythm without any murmurs gallops or rubs. ABDOMEN: Epigastric abdominal pain SKIN: Skin is clear with no lesions or rashes and otherwise unremarkable. NEUROLOGIC: Patient is alert and oriented x3. Cranial nerves II through XII are grossly intact. Motor and sensory are also intact. Normal speech, volume and content. Symmetrical smile. MUSCULOSKELETAL: Normal extremities with adequate strength and full range of motion. No lower extremity swelling or edema. No calf tenderness. LYMPHATICS: No significant lymphadenopathy is noted PSYCHIATRIC: Normal psychiatric evaluation. Limitations: no limitations Course Vital Signs 12/21/18 08:46 Temperature 98.3 F Pulse Rate 87 Respiratory 16 Rate Blood Pressure 111/77 O2 Sat by Pulse 99 Oximetry Medical Decision Making - Medical Decision Making I went back into the room to reevaluate the patient and the patient was insisting on getting narcotics. Patient had not yet vomited in the emergency department I told she could go home and take morphine and it which point her significant other became irate and started yelling at me to do my job and give her pain medication I then told him I will only be speaking to the patient and he would not stop yelling and he got in my face and started screaming at me. At this point in time I left the room and the patient and the significant other left ama - Lab Data Result diagrams: 12/21/18 09:57 12/21/18 09:57 Lab Results 12/21/18 12/21/18 12/21/18 Range/Units 09:57 09:57 09:57 WBC 7.0 (3.8-10.6) k/uL RBC 4.98 (3.80-5.40) m/uL Hgb 15.2 (11.4-16.0) gm/dL Hct 46.0 (34.0-46.0) % MCV 92.4 (80.0-100.0) fL MCH 30.5 (25.0-35.0) pg MCHC 33.0 (31.0-37.0) g/dL RDW 13.7 (11.5-15.5) % Plt Count 258 (150-450) k/uL Neutrophils % 65 % Lymphocytes % 25 % Monocytes % 6 % Eosinophils % 1 % Basophils % 0 % Neutrophils # 4.5 (1.3-7.7) k/uL Lymphocytes # 1.8 (1.0-4.8) k/uL Monocytes # 0.4 (0-1.0) k/uL Eosinophils # 0.1 (0-0.7) k/uL Basophils # 0.0 (0-0.2) k/uL Sodium 143 (137-145) mmol/L Potassium 5.4 H (3.5-5.1) mmol/L Chloride 112 H (98-107) mmol/L Carbon Dioxide 19 L (22-30) mmol/L Anion Gap 12 mmol/L BUN 13 (7-17) mg/dL Creatinine 0.76 (0.52-1.04) mg/dL Est GFR (CKD-EPI)AfAm >90 (>60 ml/min/1.73 sqM) Est GFR (CKD-EPI)NonAf >90 (>60 ml/min/1.73 sqM) Glucose 90 (74-99) mg/dL Calcium 9.8 (8.4-10.2) mg/dL Total Bilirubin 1.2 (0.2-1.3) mg/dL AST 24 (14-36) U/L ALT 11 (9-52) U/L Alkaline Phosphatase 65 (38-126) U/L Total Protein 7.8 (6.3-8.2) g/dL Albumin 4.8 (3.5-5.0) g/dL Amylase 76 (30-110) U/L Lipase 146 (23-300) U/L Urine Color Yellow Urine Appearance Cloudy H (Clear) Urine pH 6.0 (5.0-8.0) Ur Specific [place] 1.018 (1.001-1.035) Urine Protein Trace H (Negative) Urine Glucose (UA) Negative (Negative) Urine Ketones 2+ H (Negative) Urine Blood Moderate H (Negative) Urine Nitrite Negative (Negative) Urine Bilirubin Negative (Negative) Urine Urobilinogen 3.0 (<2.0) mg/dL Ur Leukocyte Esterase Small H (Negative) Urine RBC 8 H (0-5) /hpf Urine WBC 6 H (0-5) /hpf Ur Squamous Epith Cells 5 H (0-4) /hpf Urine Mucus Rare H (None) /hpf Disposition Clinical Impression: Chronic abdominal pain Disposition: Left Against Medical Advice Instructions (If sedation given, give patient instructions): Chronic Abdominal Pain (ED) Is patient prescribed a controlled substance at d/c from ED?: No Referrals: Derek Dobbins MD [Primary Care Provider] - 1-2 days Time of Disposition: 10:52
== END 2018-12-21 11:06 | disposition left against medical advice (07) ==
LOC: EC 08:37
DX: R10.13 Epigastric pain (principal); G89.29 Other chronic pain; K21.9 Gastro-esophageal reflux disease without esophagitis; R11.10 Vomiting, unspecified; Z79.891 Long term (current) use of opiate analgesic; Z79.899 Other long term (current) drug therapy; Z88.8 Allergy status to other drugs, medicaments and biological substances; Z87.19 Personal history of other diseases of the digestive system; Z86.2 Personal history of diseases of the blood and blood-forming organs and certain disorders involving the immune mechanism; Z90.49 Acquired absence of other specified parts of digestive tract; Z98.49 Cataract extraction status, unspecified eye
CPT/HCPCS: 36415; 80053; 82150; 83690; 85025; 81001; 74018; 99284; 96374; 96375; 96361; J2405; J1885

== ENCOUNTER → 2019-07-13 | Outpatient (CLI) | payer OTHER ==
--- NOTE | 2019-07-16 08:29 | MM ---
Reason for exam: follow-up at short interval from prior study. Last mammogram was performed 7 months ago. History: Took hormonal contraceptives beginning at age 17. Physical Findings: Nurse Summary: 0.5 x 0.5cm nodule in the right breast at 9 o'clock and a 0.5 x 1cm nodule in the left breast at 6 o'clock (nurse ts). [facility] Diagnostic Mammo w CAD G[facility]LE Bilateral CC and MLO view(s) were taken. Prior study comparison: December 07, 2018, left breast [facility] diagnostic mammo LT w CAD. May 12, 2018, bilateral MG diagnostic mammo w CAD GAYLE. The breast tissue is extremely dense which could obscure a lesion on mammography. These results were verbally communicated with the patient and result sheet given to the patient on 07/13/19. ASSESSMENT: Incomplete: need additional imaging evaluation, BI-RAD 0 RECOMMENDATION: Ultrasound of both breasts. (dense tissue/palpables)
--- NOTE | 2019-07-16 08:31 | USB ---
Reason for exam: additional evaluation requested from abnormal screening. History: Took hormonal contraceptives beginning at age 17. US Breast BILAT Right complete breast ultrasound includes all four quadrants, the retroareolar region and axilla. Finding demonstrates a 3 x 2 x 3mm oval, cystic lesion at 5 o'clock and a 6 x 2 x 5mm ova, mixed debris filled cyst at 9 o'clock BB. Left complete breast ultrasound includes all four quadrants, the retroareolar region and axilla. Finding demonstrates a 5 x 3 x 5mm oval, cystic cluster at 12 o'clock and a 3 x 2 x 4mm lesion too small to characterize at 9 o'clock. Overall fibrocystic change. These results were verbally communicated with the patient and result sheet given to the patient on 07/13/19. ASSESSMENT: Benign, BI-RAD 2 RECOMMENDATION: Routine screening mammogram of both breasts in 1 year.
== END | disposition home or self-care (01) ==
LOC: RADMAMWWP 13:47
PROVIDERS: ATTEND Pediatrics
DX: R92.8 Other abnormal and inconclusive findings on diagnostic imaging of breast (principal)
CPT/HCPCS: 77066

== ENCOUNTER → 2023-09-29 | Outpatient (CLI) | payer MEDICARE ==
--- NOTE | 2023-09-30 10:05 | BD ---
EXAMINATION TYPE: Axial Bone Density DATE OF EXAM: 09/29/2023 CLINICAL HISTORY: 48 years old Female. ICD-10 CODE: M81.0 M05.79 S32.009A lmp- 1 year ago Height: 63 Weight: 105.6 FRAX RISK QUESTIONS: Alcohol (3 or more units per day): no Family History (Parent hip fracture): no Glucocorticoids (More than 3mos): no (Ex: prednisone, prednisolone, methylprednisolone, dexamethasone, and hydrocortisone). History of Fracture in Adulthood: yes Secondary Osteoporosis: 1. Type 1 Diabetes: no 2. Hyperthyroidism: no 3. Menopause before 45: no 4. Malnutrition: yes 5. Chronic liver disease: no Rheumatoid Arthritis: yes Current Tobacco Use: no RISK FACTORS HISTORY OF: Surgery to Spine/Hip(right/left)/Wrist (right/left): no EXAM MEASUREMENTS: Bone mineral densitometry was performed using the [employer] System. Bone mineral density as measured about the Lumbar spine is: ----- L1-L4(G/cm2): 1.023 T Score Values are as follows: ----- L1: -1.4 ----- L2: -1.2 ----- L3: -1.2 ----- L4: -1.6 ----- L1-L4: -1.3 Z Score Values are as follows: ----- L1: -0.7 ----- L2: -0.4 ----- L3: -0.4 ----- L4: -0.8 ----- L1-L4: -0.6 Bone mineral density : baseline Bone mineral density about the R hip (g/cm2): 0.706 Bone mineral density about the L hip (g/cm2): 0.660 T Score values are as follows: -----R Neck: -2.4 -----L Neck: -1.9 -----R Total: -2.4 -----L Total: -2.8 Z Score values are as follows: -----R Neck: -1.3 -----L Neck: -0.8 -----R Total: -16 -----L Total: -2.0 Bone mineral density : baseline FRAX%s: The graph provided illustrates a 11.5% chance for a major osteoporotic fx and a 3.4% chance f or the hips probability for fx in 10 years time. IMPRESSION: Osteoporosis (T Score less than -2.5). There is increased fracture risk and therapy is usually indicated based on age. Re-Screen 1-2 years. NOTE: T-SCORE=SD OF THE YOUNG ADULT MEAN.
== END | disposition home or self-care (01) ==
LOC: RADBDWWP 14:37
PROVIDERS: ATTEND Pediatrics
DX: S32.009A Unspecified fracture of unspecified lumbar vertebra, initial encounter for closed fracture (principal); M81.0 Age-related osteoporosis without current pathological fracture; M05.79 Rheumatoid arthritis with rheumatoid factor of multiple sites without organ or systems involvement; M85.89 Other specified disorders of bone density and structure, multiple sites
CPT/HCPCS: 77080